=== PATIENT | male | born 1940 | race Caucasian/White ===

== ENCOUNTER 2017-09-02 14:34 | Outpatient (RCR) | payer MEDICARE, OTHER, SELFPAY ==
[2017-09-02 15:48] LABS: International Normalized Ratio 2.1; Prothrombin Time (Protime)PT. 22.9 SECONDS (11.7-14.9)
== END 2017-09-02 14:50 | disposition home or self-care (01) ==
LOC: LAB 14:34
PROVIDERS: Family Provider Nurse Practitioner; PCP Nurse Practitioner; Visit Provider Internal Medicine Cardiovascular Disease
DX: I48.1 Persistent atrial fibrillation (principal)
CPT/HCPCS: 36415; 85610

== ENCOUNTER → 2017-09-29 11:57 | Outpatient (CLI) | payer MEDICARE, OTHER, SELFPAY ==
--- NOTE | 2017-09-29 13:00 | CDU_ITS ---
Reason For Study: Carotid stenosis Rt. Velocities/BP Lt. Velocities/BP Prox CCA 103.0/17.0 cm/sec. Prox CCA 76.2/12.9 cm/sec. Mid CCA 120.0/20.5 cm/sec. Mid CCA 72.1/15.2 cm/sec. Dist CCA 111.0/24.6 cm/sec. Dist CCA 74.5/14.7 cm/sec. Prox ICA 223.0/47.1 cm/sec. Prox ECA 3180.0/58.0 cm/sec. Mid ICA 177.0/43.2 cm/sec. Lt. Vert. 75.0/21.1 cm/sec. Dist ICA 96.6/23.7 cm/sec. Rt. ICA/CCA = 1.9. Prox ECA 139.0/18.1 cm/sec. Rt. Vert. 42.8/10.6 cm/sec. Right Extracranial There is heterogeneous, irregular atherosclerotic plaque noted in the right common carotid artery. There is heterogeneous, irregular atherosclerotic plaque noted in the right internal carotid artery. There is heterogeneous, irregular atherosclerotic plaque noted in the right external carotid artery. Antegrade flow is noted in the right vertebral artery. Left Extracranial There is homogeneous, smooth atherosclerotic plaque noted in the left common carotid artery. The left internal carotid artery is occluded. There is heterogeneous, irregular atherosclerotic plaque noted in the left external carotid artery. Antegrade flow is noted in the left vertebral artery. Procedure Carotid Duplex [id number]. Exam performed in department. Interpretation Summary Moderate (50-69%) stenosis right extracranial internal carotid. Left internal carotid artery is occluded. Flow within the vertebral arteries is antegrade bilaterally. Ordering Physician: Antonio Eubanks Referring Physician: Antonio Eubanks Performed By: Clair Rodriguez RVT
--- NOTE | 2017-09-29 14:00 | ECHOD_ITS ---
Reason For Study: afib/flutter Procedure This was a 2D Doppler, Color Flow transthoracic echocardiogram. Exam performed in department. Left Ventricle Normal LV size. Left ventricular systolic function is normal. The estimated ejection fraction is 60 %. No regional wall motion abnormalities noted. Right Ventricle Normal RV size. Normal systolic function. Atria The left atrium is moderately enlarged. Normal right atrium. Patent foramen ovale. Mitral Valve Normal mitral valve. Mild (1+) eccentric mitral valve insufficiency. Tricuspid Valve Normal tricuspid valve. Mild to moderate (1-2+) tricuspid valve insufficiency. Pulmonary artery systolic pressure is 42 mmHg. Aortic Valve Normal aortic valve. Trisinus/trileaflet aortic valve. Mild (1+) aortic valve insufficiency. Pulmonic Valve Normal pulmonic valve. Great Vessels Normal aortic root. The pulmonary artery is normal size. Normal inferior vena cava. Pericardium/Pleural No pericardial effusion. MMode/2D Measurements & Calculations LVIDd: 4.9 cm IVSd: 0.91 cm LVOT diam: 2.0 cm LVIDs: 3.4 cm LVPWd: 0.95 cm LVOT area: 3.0 cm2 RVDd: 4.6 cm FS: 32.3 % Ao root diam: 3.3 cm LAV(MOD-bp): 91.0 ml LA A4 area: 27.9 cm2 LA dimension: 3.9 cm LAV(MOD-bp) Indexed: 44.8 ml/m2 LAV(MOD-sp2): 90.3 ml LAV(MOD-sp4): 87.5 ml RA A4 area: 19.1 cm2 Doppler Measurements & Calculations Ao V2 max: 191.2 cm/sec AI max sterling: 477.4 cm/sec LV V1 max: 129.6 cm/sec Ao max P.7 mmHg AI max P.2 mmHg LV V1 max P.8 mmHg PEARL(V,D): 2.0 cm2 AI dec slope: 181.1 cm/sec2 AI P1/2t: 772.3 msec TR max sterling: 301.9 cm/sec TR max P.5 mmHg Interpretation Summary Normal LV size. Left ventricular systolic function is normal. The estimated ejection fraction is 60 %. Mild (1+) eccentric mitral valve insufficiency. Pulmonary artery systolic pressure is 42 mmHg. Mild (1+) aortic valve insufficiency. Compared to prior study, there is no significant change. Ordering Physician: Antonio Eubanks Referring Physician: LIBBY TONY Performed By: Maddie Call, SAHRACS, RVT
== END ==
PROVIDERS: Family Provider Nurse Practitioner; PCP Nurse Practitioner; Visit Provider Internal Medicine Cardiovascular Disease
DX: Z01.810 Encounter for preprocedural cardiovascular examination (principal); I48.91 Unspecified atrial fibrillation; I48.92 Unspecified atrial flutter; Z86.73 Personal history of transient ischemic attack (TIA), and cerebral infarction without residual deficits
CPT/HCPCS: 93306; 93880

== ENCOUNTER 2017-10-05 13:23 | Outpatient (RCR) | payer MEDICARE, OTHER, SELFPAY ==
[2017-10-05 14:23] LABS: Prothrombin Time (Protime)PT. 22.2 SECONDS (11.7-14.9)
== END 2017-10-05 14:00 | disposition home or self-care (01) ==
LOC: LAB 13:23
PROVIDERS: Family Provider Nurse Practitioner; PCP Nurse Practitioner; Visit Provider Internal Medicine Cardiovascular Disease
DX: I48.1 Persistent atrial fibrillation (principal)
CPT/HCPCS: 36415; 85610

== ENCOUNTER 2017-11-02 08:10 | Outpatient (RCR) | payer MEDICARE, OTHER, SELFPAY ==
[2017-11-02 11:08] LABS: International Normalized Ratio 2.3; Prothrombin Time (Protime)PT. 25.8 SECONDS (11.7-14.9)
== END 2017-11-02 09:00 | disposition home or self-care (01) ==
LOC: LAB 08:10
PROVIDERS: Family Provider Nurse Practitioner; PCP Nurse Practitioner; Visit Provider Internal Medicine Cardiovascular Disease
DX: I48.1 Persistent atrial fibrillation (principal)
CPT/HCPCS: 36415; 85610

== ENCOUNTER → 2017-11-04 15:30 | Outpatient (CLI) | payer MEDICARE, OTHER, SELFPAY ==
--- NOTE | 2017-11-04 15:32 | CT_ITS ---
CTA of the neck Comparison study:, October 17, 2013 Indication carotid stenosis TECHNIQUE: CTA of the neck was performed scanning in a dynamically enhanced fashion following contrast administration followed by sagittal and coronal reconstructions. Radiographic technique was optimized to limit patient radiation dose. FINDINGS: There is mild diffuse soft plaque throughout the right common carotid without evidence for hemodynamically significant stenosis. There is moderate calcific plaque at the carotid bulb and moderate plaque of the origin of the internal carotid without evidence for hemodynamically significant stenosis. There is mild diffuse soft plaque noted within the left common carotid. There is severe calcific plaque of the carotid bulb and origin of the internal carotid with severe greater than 75% stenosis of the internal carotid. There is occlusion slightly more distally and then reconstitution by collaterals The left vertebral is dominant. There is mild calcific plaquing of the distal vertebrals There is no significant segmental stenosis of the vertebrals.. There has been slight interval progression of the calcific plaque bilaterally since prior study. CT/CTA Neck W/WO Contrast IMPRESSION: Moderate to severe atherosclerotic disease more severe on the left with hemodynamically significant stenosis of the origin of the internal carotid and occlusion followed by reconstitution via collaterals. There is moderate narrowing of the right carotid bulb Electronically Signed: Arcadio Landin MD at 17:04 EDT , Service support ,
[2017-11-04 15:46] LABS: EGFR FINGERSTICK > 60.0000 mL/min (>60)
== END ==
PROVIDERS: Family Provider Nurse Practitioner; PCP Nurse Practitioner; Visit Provider Surgery
DX: I65.23 Occlusion and stenosis of bilateral carotid arteries (principal)
CPT/HCPCS: 70498; Q9967

== ENCOUNTER 2017-11-30 13:59 | Outpatient (RCR) | payer MEDICARE, OTHER, SELFPAY ==
[2017-11-30 15:18] LABS: International Normalized Ratio 2.2; Prothrombin Time (Protime)PT. 24.3 SECONDS (11.7-14.9)
== END 2017-11-30 14:00 | disposition home or self-care (01) ==
LOC: LAB 13:59
PROVIDERS: Family Provider Nurse Practitioner; PCP Nurse Practitioner; Visit Provider Internal Medicine Cardiovascular Disease
DX: I48.1 Persistent atrial fibrillation (principal)
CPT/HCPCS: 36415; 85610

== ENCOUNTER 2017-12-30 11:59 | Outpatient (RCR) | payer MEDICARE, OTHER, SELFPAY ==
[2017-12-30 13:21] LABS: International Normalized Ratio 2.3; Prothrombin Time (Protime)PT. 25.7 SECONDS (11.7-14.9)
== END 2017-12-30 12:00 | disposition home or self-care (01) ==
LOC: LAB 11:59
PROVIDERS: Family Provider Nurse Practitioner; PCP Nurse Practitioner; Visit Provider Internal Medicine Cardiovascular Disease
DX: I48.1 Persistent atrial fibrillation (principal)
CPT/HCPCS: 36415; 85610

== ENCOUNTER 2018-01-28 10:11 | Outpatient (RCR) | payer MEDICARE, OTHER, SELFPAY ==
[2018-01-28 11:06] LABS: Prothrombin Time (Protime)PT. 22.9 SECONDS (11.7-14.9)
== END 2018-01-28 11:00 | disposition home or self-care (01) ==
LOC: LAB 10:11
PROVIDERS: Family Provider Nurse Practitioner; PCP Nurse Practitioner; Visit Provider Internal Medicine Cardiovascular Disease
DX: I48.1 Persistent atrial fibrillation (principal)
CPT/HCPCS: 36415; 85610

== ENCOUNTER 2018-02-26 11:48 | Outpatient (RCR) | payer MEDICARE, OTHER, SELFPAY ==
[2018-02-26 12:46] LABS: International Normalized Ratio 2.4; Prothrombin Time (Protime)PT. 26.5 SECONDS (11.7-14.9)
== END 2018-02-26 13:00 | disposition home or self-care (01) ==
LOC: LAB 11:48
PROVIDERS: Family Provider Nurse Practitioner; PCP Nurse Practitioner; Visit Provider Internal Medicine Cardiovascular Disease
DX: I48.1 Persistent atrial fibrillation (principal)
CPT/HCPCS: 36415; 85610

== ENCOUNTER 2018-03-30 11:09 | Outpatient (RCR) | payer MEDICARE, OTHER, SELFPAY ==
[2018-03-30 11:42] LABS: International Normalized Ratio 2.5; Prothrombin Time (Protime)PT. 27.1 SECONDS (11.7-14.9)
== END 2018-03-30 12:00 | disposition home or self-care (01) ==
LOC: LAB 11:09
PROVIDERS: Family Provider Nurse Practitioner; PCP Nurse Practitioner; Visit Provider Internal Medicine Cardiovascular Disease
DX: I48.0 Paroxysmal atrial fibrillation (principal); Z79.01 Long term (current) use of anticoagulants
CPT/HCPCS: 36415; 85610

== ENCOUNTER 2018-05-12 13:40 | Outpatient (RCR) | payer MEDICARE, OTHER, SELFPAY ==
[2018-04-29 14:02] LABS: International Normalized Ratio 1.9
[2018-05-12 16:05] LABS: International Normalized Ratio 1.8; Prothrombin Time (Protime)PT. 20.9 SECONDS (11.7-14.9)
== END 2018-05-12 15:00 | disposition home or self-care (01) ==
LOC: LAB 13:40
PROVIDERS: Family Provider Nurse Practitioner; PCP Nurse Practitioner; Visit Provider Internal Medicine Cardiovascular Disease
DX: I48.0 Paroxysmal atrial fibrillation (principal); Z79.01 Long term (current) use of anticoagulants
CPT/HCPCS: 36415; 85610

== ENCOUNTER 2018-06-04 13:34 | Outpatient (RCR) | payer MEDICARE, OTHER, SELFPAY ==
[2018-05-21 13:43] LABS: International Normalized Ratio 2.7; Prothrombin Time (Protime)PT. 28.8 SECONDS (11.7-14.9)
[2018-06-04 16:39] LABS: International Normalized Ratio 2.8; Prothrombin Time (Protime)PT. 29.5 SECONDS (11.7-14.9)
== END 2018-06-04 15:00 | disposition home or self-care (01) ==
LOC: LAB 13:34
PROVIDERS: Family Provider Nurse Practitioner; PCP Nurse Practitioner; Referring Provider Internal Medicine Cardiovascular Disease; Visit Provider Internal Medicine Cardiovascular Disease
DX: I48.0 Paroxysmal atrial fibrillation (principal); Z79.01 Long term (current) use of anticoagulants
CPT/HCPCS: 36415; 85610

== ENCOUNTER 2018-07-05 13:54 | Outpatient (RCR) | payer MEDICARE, OTHER, SELFPAY ==
[2018-07-05 16:46] LABS: International Normalized Ratio 2.3; Prothrombin Time (Protime)PT. 25.3 SECONDS (11.7-14.9)
== END 2018-07-16 10:36 | disposition home or self-care (01) ==
LOC: LAB 13:54
PROVIDERS: Family Provider Nurse Practitioner; PCP Nurse Practitioner; Referring Provider Internal Medicine Cardiovascular Disease; Visit Provider Internal Medicine Cardiovascular Disease
DX: I48.0 Paroxysmal atrial fibrillation (principal); Z79.01 Long term (current) use of anticoagulants
CPT/HCPCS: 36415; 85610

== ENCOUNTER 2018-07-14 22:26 | Emergency (ER) | payer MEDICARE, OTHER, SELFPAY ==
[2018-07-14 22:29] VITALS: BP 171/90; PULSE 77; RESP 18; TEMP 37.2; O2SAT 98; BMI 36.3
--- NOTE | 2018-07-14 22:48 | ED.VISSUMM ---
- ER Visit Summary Date of Service: 07/14/18 Chief Complaint: [] Runny nose History of Present Illness: The patient is a 77 M stated he had a runny nose for the last couple days gradual onset intermittent. He is also had a very small cyst on the top of his palate. It was therapeutic 2 years ago and broke open and went away and it came back a few days ago. He is able to put pressure on it and trying to break it open. Current severity is mild Physical Examination: [] Vital signs reviewed General: Well-nourished well-developed Head: Normocephalic atraumatic Eyes: Pupils equal round and reactive to light extraocular movements intact ENT: TMs clear no hemotympanum no trauma. His oral exam hard palate shows a 0.5 x 0.5 cm superficial cyst without abscess. It is almost completely flat Neck: Nontender full range of motion Cardiovascular: Regular rate rhythm no murmurs normal S1-S2 Respiratory: No distress clear to auscultation bilaterally chest nontender Abdomen: Soft nontender nondistended normal bowel sounds no masses Back: Nontender no CVA tenderness Extremities: Nontender active range of motion ?4 extremities no trauma Skin: Normal color no trauma Neuro alert oriented cranial nerves II through XII intact normal strength sensation reflexes Test Results: [] Emergency Department Course and Treatment: [] Patient will get a referral to ENT. I do not feel this needs drained at this time. It is not an abscess. He will use Orajel if it is bothering him. It is the main reason he came in Treatment Plan: [] Disposition: [] Impression: [] Hard palate lesion This note was generated with [employer] dictation software. It may contain incorrect words, spelling, and punctuation that were not noted in review of the chart prior to signing ED Disposition - Plan for ED Patient: Chief Complaint: Cold Sx Referrals: Yoon Alba, WILLIAN-C [Primary Care Provider] -
--- NOTE | 2018-07-14 22:49 | ED.DEP ---
ED Disposition - Plan for ED Patient: Disposition: Home or Assisted Living Chief Complaint: Cold Sx Instructions: ED Blank Diagnosis Form Referrals: Yoon Alba NP-Mauricio [Primary Care Provider] - Gregorio Yanes MD [STAFF PHYSICIAN] - Additional Instructions: Have a cyst on your hard palate. Follow-up with the ENT physician
[2018-07-14 22:53] VITALS: RESP 18
--- OUTSIDE RECORDS SUMMARY | 2018-09-09 05:20 | XMS RPT_ITS | Continuity of Care Document ---
:1940 Author Organization [facility] Address [address] [place] [address] Phone Care Team Providers Name Role Phone Yoon Tony CNP Unavailable SanjanaVidhya vidales DO Unavailable Gonsalo WATSON, Milli Rader Unavailable Deshawn DPAmos Rader Unavailable Jessica Benitez Unavailable Unavailable Slarb MARINE DESIGNER, Carole Unavailable Unavailable Bossman Bernard Unavailable Unavailable MessengerDAMIÁN Unavailable Unavailable Unavailable Unavailable Problems Name Dates Details A-fib (I48.91, 427.31) Comments: cardioversion 6-10, paroxysmal, on coumadin for life. does cause sob per cardio. stress 2013 good. reviewed with patient specialist's note. he can tell when in afib because not as much stamina, stable on coumadin, Nury follows Status: Active Anemia (D64.9, 285.9) Status: Active Aphasia as late effect of cerebrovascular accident (I69.320, 438.11) Status: Active ASD (atrial septal defect), ostium secundum (Q21.1, 745.5) Status: Active Asthmatic bronchitis, unspecified asthma severity, with acute exacerbation (J45.901, 493.92) Comments: usually not need inhalers. Status: Active Asymptomatic carotid artery stenosis with infarction (I63.239, 433.11) Comments: LICA 90% stenosis and DAMIÁN 50% stenosis, MRA 2-[address] bhatia 3-16 stable no surgery Status: Active BMI 38.0-38.9,adult (Z68.38, V85.38) Status: Active BMI 39.0-39.9,adult (Z68.39, V85.39) Status: Active BMI 39.0-39.9,adult (Z68.39, V85.39) Status: Active BMI 39.0-39.9,adult (Z68.39, V85.39) Status: Active Body mass index 38.0-38.9, adult (Z68.38, V85.38) Status: Active Colon polyp (K63.5, 211.3) Comments: 1-09 scoperescope 1-14 recheck in 7 years Status: Active Current nonsmoker (Renamed from Current non-smoker) (Z78.9, V49.89) Status: Active Diabetes mellitus type II, controlled (E11.9, 250.00) Comments: stable metforminpodaitry see every 3months, regular eye exam yearly scheduled laurent, see cardio Status: Active Diabetic autonomic neuropathy associated with type 2 diabetes mellitus (E11.43, 250.60) Status: Active Diabetic polyneuropathy associated with type 2 diabetes mellitus (E11.42, 250.60) Comments: monofilament intact but vibratroy sense decreased Status: Active Hammer toes, bilateral (M20.41, 735.4) Status: Active Hematuria (R31.9, 599.70) Comments: on coumadin Status: Active History of CVA in adulthood (Z86.73, V12.54) Status: Active Hypertension, benign (I10, 401.1) Comments: , norvasc and lisinopril, stable not betablocker because heart rate too low Status: Active Memory loss (R41.3, 780.93) Comments: since stroke ceck MMS. not seem cognitive. not feel have anxiety. will check labs. and watch for worsening Status: Active Need for prophylactic vaccination and inoculation against influenza (Z23, V04.81) Status: Active Need for prophylactic vaccination and inoculation against influenza (Renamed from Need for immunization against influenza) (Z23, V04.81) Status: Active Obesity, unspecified (E66.9, 278.00) Comments: loosing weight with byetta but stop because cost stable now Status: Active Osteoarthrosis, not specified whether generalized/localized, lower leg (M17.9, 715.96) Comments: had right TKA eufflexxa in past. Status: Active Personal history of malignant neoplasm of prostate (Z85.46, V10.46) 2008 Comments: released from urology, prostate removed Status: Active Pure hypercholesterolemia (E78.0) Comments: stop zocor--had aches, strength loss, niacin -rash.b reallly good, still atorvastatin Status: Active Status post coronary angiogram (Z98.89, V45.89) Status: Active Unspecified Diagnosis Status: Active Vitamin D deficiency, unspecified (E55.9, 268.9) Comments: very slightly low assure taking Status: Active Medications Name Dates Details Atorvastatin Calcium 80 MG Oral Tablet 1 (one) Tablet Tablet qd for 0 days Quantity: 90 {Tablet} Refills: 3 Ordered:02-Sep-2017 Parth BLAKE Yoon MARISCALge BLAKE Yoon Romo Start : 02-Sep-2017 Active Atorvastatin Calcium 80 MG Oral Tablet 1 (one) Tablet Tablet qd for 0 days Quantity: 90 {Tablet} Refills: 3 Ordered:02-Sep-2017 Parth BLAKE Yoon Peacephilip BLAKE Yoon Romo Start : 02-Sep-2017 Active Coumadin 1 MG Oral Tablet uad Tablet qd for 0 days Quantity: 90 {Tablet} Refills: 3 Ordered:05-Dec-2016 Parth BLAKE Yoon Peacephilip BLAKE Yoon Romo Start : 05-Dec-2016 Active Fiber Laxative 625 MG Oral Tablet 1 qd for 0 days Refills: 0 Ordered:09-Mar-2017 Parth BLAKE Yoon MARISCALge BLAKE Yoon Romo Start : 09-Mar-2017 Active Fish Oil 500 MG Oral Capsule daily (500 MG) Active HydroCHLOROthiazide 25 MG Oral Tablet 1 (one) Tablet daily for 0 days Quantity: 30 {Tablet} Refills: 0 Ordered:09-Mar-2017 Parth BLAKE Yoon MARISCALge BLAKE Yoon Romo Start : 09-Mar-2017 Active Lisinopril 20 MG Oral Tablet 1 Tablet QD for 0 days Quantity: 90 {Tablet} Refills: 3 Ordered:02-Sep-2017 Parth BLAKE Yoon Peacephilip BLAKE Yoon Romo Start : 02-Sep-2017 Active MetFORMIN HCl 1000 MG Oral Tablet 1 Tablet BID for 0 days Quantity: 180 {Tablet} Refills: 3 Ordered:18-Jan-2018 Parth BLAKE, Yoon Brock CNP Start : 18-Jan-2018 Active MetFORMIN HCl 1000 MG Oral Tablet 1 Tablet BID for 0 days Quantity: 360 {QS} Refills: 0 Ordered:18-Jan-2018 Parth BLAKE, Yoon Brock CNP Start : 18-Jan-2018 Active Multivitamin Adults 50+ Oral Tablet 1 (one) Tablet daily for 0 days Quantity: 30 {Tablet} Refills: 0 Ordered:09-Mar-2017 Parth BLAKE, Yoon Brock CNP Start : 09-Mar-2017 Active Norvasc 10 MG Oral Tablet 1 (one) Tablet qd for 0 days Quantity: 90 {Tablet} Refills: 3 Ordered:23-Jun-2018 Yoon Tony CNP, CNP, Mary E Start : 23-Jun-2018 Active Norvasc 10 MG Oral Tablet 1 (one) Tablet qd for 90 days Quantity: 90 {Tablet} Refills: 3 Ordered:23-Jun-2018 Yoon Tony CNP, CNP, Mary E Start : 23-Jun-2018 Active PreserVision/Lutein Oral Capsule 1 (one) Capsule daily for 0 days Quantity: 30 {Capsule} Refills: 0 Ordered:09-Mar-2017 Yoon Tony CNP, CNP, Mary E Start : 09-Mar-2017 Active RELION LANCETS STANDARD 21G (Miscellaneous) 1 (one) Misc Misc tid for 0 days Quantity: 300 {Each} Refills: 3 Ordered:26-Nov-2015 Raina Pham Start : 26-Nov-2015 Active Comments:E11.9 RELION PRIME MONITOR (Device) 1 (one) Device Device test up to tid for 0 days Quantity: 1 Kit Refills: 0 Ordered:26-Nov-2015 Raina Pham Start : 26-Nov-2015 Active Comments:E11.9 RELION PRIME TEST (In Vitro Strip) 1 (one) Strip Strip tid for 0 days Quantity: 300 {Strip} Refills: 3 Ordered:26-Nov-2015 Raina Pham Start : 26-Nov-2015 Active Comments:E11.9 Tylenol 325 MG Oral Capsule 1 (one) Capsule as needed for 0 days Quantity: 30 {Capsule} Refills: 0 Ordered:09-Mar-2017 Parth BLAKE, Yoon Blackwell CNP, Yoon Romo Start : 09-Mar-2017 Active Comments:Medication taken as needed. Vitamin B12 100 MCG Oral Tablet 1 (one) Microgram daily for 0 days Quantity: 30 {Milligram} Refills: 0 Ordered:09-Mar-2017 Parth BLAKE, Yoon Blackwell CNP, Yoon Romo Start : 09-Mar-2017 Active ACCU-CHEK DEREJE (In Vitro Strip) 1 Strip TID for 0 days Quantity: 270 {Strip} Refills: 3 Ordered:26-Nov-2015 Jenifer Choudhary LPN Start : 12-Jan-2014 End : 26-Nov-2015 Inactive Comments:DX: 250.00 ASPIRIN EC, 325MG (Oral Tablet Delayed Release) 1 (one) Tablet DR daily for 0 days Quantity: 30 {Tablet} Refills: 0 Ordered:20-Oct-2013 ANGÉLICA Laureano Start : 11-Oct-2013 End : 20-Oct-2013 Inactive ATENOLOL-CHLORTHALIDONE, 50-25MG (Oral Tablet) 1 Tablet QD for 0 days Quantity: 30 {Tablet} Refills: 0 Ordered:26-Nov-2010 ANGÉLICA Laureano Start : 08-Jul-2010 End : 26-Nov-2010 Inactive Atorvastatin Calcium 80 MG Oral Tablet 1 (one) qd (80 MG) Start : 05-Dec-2016 Inactive AUGMENTIN, 875-125MG (Oral Tablet) 1 Tablet bid for 14 days Quantity: 28 {Tablet} Refills: 0 Ordered:23-Jan-2009 Parth BLAKE, Yoon Blackwell CNP, Yoon Romo Start : 23-Jan-2009 End : 20-Feb-2009 Inactive AVELOX, 400MG (Oral Tablet) 1 Tablet daily for 0 days Quantity: 6 {Tablet} Refills: 0 Ordered:26-Nov-2010 ANGÉLICA Laureano Start : 02-Aug-2010 End : 26-Nov-2010 Inactive BIAXIN XL PAC, 500MG (Oral Tablet Extended Release 24 Hour) 2 (two) Tablet ER 24HR daily for 10 days Quantity: 20 {Tablet_ER_24HR} Refills: 0 Ordered:25-Jan-2013 Jenifer Choudhary LPN Start : 24-Jan-2013 End : 25-Jan-2013 Inactive BYETTA 10 MCG PEN, 10MCG/0.04ML (Subcutaneous Solution Pen-injector) 1 Milliliter bid for 0 days Quantity: 3 {Pre-filled_Pen_Syringe} Refills: 3 Ordered:28-May-2015 ANGÉLICA Laureano Start : 19-Apr-2015 End : 28-May-2015 Inactive Comments:with needles CHERATUSSIN AC, 100-10MG/5ML (Oral Solution) 1-2 Teaspoon qhs prn for 0 days Quantity: 6 {Ounce} Refills: 0 Ordered:31-Jul-2015 FrancoisborisdanayRaina Start : 02-Jul-2015 End : 31-Jul-2015 Inactive CHOLECALCIFEROL (Powder) 1 (one) Powder daily for 360 days Quantity: 30 {Box} Refills: 0 Ordered:12-Jan-2014 ANGÉLICA Laureano Start : 28-Oct-2013 End : 12-Jan-2014 Inactive COLESTID, 1GM (Oral Tablet) 1 Tablet bid for 0 days Quantity: 180 {Tablet} Refills: 3 Ordered:11-Jul-2013 ANGÉLICA Laureano Start : 09-Sep-2012 End : 11-Jul-2013 Inactive COLESTID, 5GM (Oral Granules) Granules BID meals for 0 days Quantity: 180 {Granules} Refills: 3 Ordered:14-Sep-2008 ANGÉLICA Laureano Start : 14-Sep-2008 Inactive DILTIAZEM HCL ER, 120MG (Oral Capsule Extended Release 24 Hour) 1 Capsule ER 24HR bid for 0 days Quantity: 180 {Capsule_ER_24HR} Refills: 3 Ordered:18-Oct-2013 ANGÉLICA Laureano Start : 11-Jul-2013 End : 18-Oct-2013 Inactive EFUDEX, 5% (External Cream) 1 Cream daily for 2 weeks for 0 days Quantity: 1 {Cream} Refills: 0 Ordered:26-Nov-2010 ANGÉLICA Laureano Start : 27-Aug-2010 End : 26-Nov-2010 Inactive FLECAINIDE ACETATE, 100MG (Oral Tablet) 1 bid for 0 days Refills: 0 Ordered:26-Nov-2010 ANGÉLICA Laureano End : 26-Nov-2010 Inactive LEVAQUIN, 500MG (Oral Tablet) 1 Tablet daily for 7 days Quantity: 7 {Tablet} Refills: 0 Ordered:02-Jul-2015 Yoon Tony CNP, CNP, Mary E Start : 02-Jul-2015 End : 09-Jul-2015 Inactive LIPOFEN, 150MG (Oral Capsule) 1 (one) Capsule daily for 0 days Quantity: 30 {Capsule} Refills: 3 Ordered:07-Jan-2010 ANGÉLICA Laureano Start : 01-Nov-2009 Inactive LOPRESSOR, 50MG (Oral Tablet) 1 Tablet qd for 900 days Refills: 0 Ordered:26-Nov-2010 ANGÉLICA Laureano Start : 28-Feb-2010 End : 26-Nov-2010 Inactive NASONEX, 50MCG/ACT (Nasal Suspension) 2 (two) Puff(s) once daily for 0 days Quantity: 1 {Suspension} Refills: 0 Ordered:03-Jun-2011 ANGÉLICA Laureano Start : 02-Aug-2010 End : 03-Jun-2011 Inactive NIASPAN, 500MG (Oral Tablet Extended Release) 1 Tablet ER qhs for 0 days Quantity: 30 {Tablet_ER} Refills: 0 Ordered:11-Apr-2013 Milli Jackson MD Start : 11-Apr-2013 End : 11-Apr-2013 Inactive Comments:bad rash PEN NEEDLES 5/16, 31G X 8 MM (Miscellaneous) 1 Misc bid for 0 days Quantity: 180 {QS} Refills: 3 Ordered:12-Nov-2015 ANGÉLICA Laureano Start : 12-Jan-2014 End : 12-Nov-2015 Inactive PRAVASTATIN SODIUM, 40MG (Oral Tablet) 1 (one) Tablet qd for 0 days Quantity: 90 {Tablet} Refills: 3 Ordered:12-Jan-2014 ANGÉLICA Laureano Start : 28-Oct-2013 End : 12-Jan-2014 Inactive Comments:not able to increase because muscle aches PROAIR HFA, 108 (90 Base)MCG/ACT (Inhalation Aerosol Solution) 2 (two) Puff(s) tid for 0 days Quantity: 1 {Inhaler} Refills: 0 Ordered:31-Jul-2015 Raina Pham Start : 02-Jul-2015 End : 31-Jul-2015 Inactive SUPARTZ, 25MG/2.5ML (Intra-articular Solution) Solution for 0 days Refills: 0 Ordered:06-Dec-2007 ANGÉLICA Laureano Start : 06-Dec-2007 End : 14-Sep-2008 Inactive Comments:lot # [id number] 11/2009 TRICOR, 145MG (Oral Tablet) Tablet QD for 0 days Quantity: 30 {Tablet} Refills: 3 Ordered:01-Nov-2009 Evie Panda LPN Start : 02-Aug-2009 Inactive VYTORIN, 10-80MG (Oral Tablet) 1 qd for 0 days Refills: 0 Ordered:28-Feb-2010 ANGÉLICA LaureanoInactive ZETIA, 10MG (Oral Tablet) 1 (one) Tablet Tablet daily for 0 days Quantity: 90 {Tablet} Refills: 3 Ordered:12-Jan-2014 ANGÉLICA Laureano Start : 11-Oct-2013 End : 12-Jan-2014 Inactive ZETIA, 10MG (Oral Tablet) 1 (one) Tablet Tablet daily for 0 days Quantity: 30 {Tablet} Refills: 0 Ordered:12-Jan-2014 ANGÉLICA Laureano Start : 11-Oct-2013 End : 12-Jan-2014 Inactive ZOSTAVAX, 67040OOW/0.65ML (Subcutaneous Solution Reconstituted) 1 (one) For Solution one time only for 0 days Quantity: 1 {Syringe} Refills: 0 Ordered:18-Oct-2013 ANGÉLICA Laureano Start : 11-Oct-2013 End : 18-Oct-2013 Inactive AMARYL, 4MG (Oral Tablet) 1 (one) Tablet QD for 0 days Quantity: 30 {Tablet} Refills: 3 Ordered:06-Dec-2007 Milli Jackson MD Start : 06-Dec-2007 End : 06-Dec-2007 Discontinued BYETTA 5 MCG PEN, 5MCG/0.02ML (Subcutaneous Solution) uad Solution BID for 90 days Quantity: 3 {Solution} Refills: 3 Ordered:26-Nov-2010 Milli Jackson MD Start : 26-Nov-2010 End : 26-Nov-2010 Discontinued CHOLESTYRAMINE LIGHT, 4GM (PO Powder Packet) 1 QD for 0 days Refills: 0 Ordered:07-Jan-2010 ANGÉLICA Laureano End : 07-Jan-2010 Discontinued Comments:This order discontinued per [facility]. Doxycycline Hyclate 100 MG Oral Capsule 1 (one) Capsule bid for 0 days Quantity: 20 {Capsule} Refills: 0 Ordered:05-Dec-2016 Carole Sky LPN Start : 06-Oct-2016 End : 05-Dec-2016 Discontinued Glucotrol 5 MG Oral Tablet 1 (one) Tablet Tablet in am for 0 days Quantity: 30 {Tablet} Refills: 4 Ordered:16-May-2016 Asya STEEL Carole Start : 29-Nov-2015 End : 16-May-2016 Discontinued MetFORMIN HCl 1000 MG Oral Tablet 1 BID (1000 MG) Start : 05-Dec-2016 End : 09-Mar-2017 Discontinued Metoprolol Tartrate 25 MG Oral Tablet 1/2 Tablet bid for 0 days Quantity: 180 {Tablet} Refills: 3 Ordered:09-Mar-2017 Asya STEELCarole Start : 05-Dec-2016 End : 09-Mar-2017 Discontinued PredniSONE 20 MG Oral Tablet 1 (one) Tablet one daily for 7 days for 0 days Quantity: 7 {Tablet} Refills: 0 Ordered:05-Dec-2016 Asya STEELCarole Start : 06-Oct-2016 End : 05-Dec-2016 Discontinued STARLIX, 120MG (Oral Tablet) 1 Tablet TID for 0 days Quantity: 360 {Tablet} Refills: 3 Ordered:13-May-2007 Natalie Jaimes Start : 13-May-2007 End : 13-May-2007 Discontinued TEST STRIPS FOR GLUCOMETER-3 (In Vitro Strip) accucheck for 0 days Refills: 0 Ordered:05-Jan-2007 Natalie Jaimes Start : 05-Jan-2007 End : 05-Jan-2007 Discontinued Comments:This order discontinued per [facility]. Tradjenta 5 MG Oral Tablet 1 (one) Tablet daily for 0 days Quantity: 28 {Tablet} Refills: 0 Ordered:26-May-2016 Asya STEELCarole Start : 16-May-2016 End : 26-May-2016 Discontinued VICTOZA, 18MG/3ML (Subcutaneous Solution Pen-injector) 1 (one) Soln Pen-inj 1.8 mg SC daily in am for 0 days Quantity: 1 {Each} Refills: 6 Ordered:19-Apr-2015 Evie Panda LPN Start : 27-Feb-2015 End : 19-Apr-2015 Discontinued Comments:with needles VITAMIN D, 91648DEYX (Oral Capsule) 1 (one) Capsule once a week for 0 days Quantity: 12 {Capsule} Refills: 0 Ordered:11-Jul-2013 ANGÉLICA Laureano Start : 02-Nov-2009 End : 11-Jul-2013 Discontinued Comments:This order discontinued per [facility]. WELCHOL, 625MG (Oral Tablet) 2 (two) Tablet bid for 0 days Refills: 0 Ordered:02-Aug-2009 Gonsalo WATSON, Milli Rader Start : 23-Jan-2009 End : 02-Aug-2009 Discontinued ZOCOR, 80MG (Oral Tablet) 1 (one) Tablet QD for 0 days Quantity: 90 {Tablet} Refills: 3 Ordered:07-Mar-2008 ANGÉLICA Laureano Start : 07-Mar-2008 End : 15-May-2008 Discontinued Allergies and Adverse Reactions Name Dates Details Biaxin *MACROLIDES* (Allergy) Status: Active Comments: rash No Known Drug Allergies (Allergy) Onset: 11-Jul-2013 Status: Inactive Past Medical History Name Dates Details Actinic keratosis (L57.0, 702.0) Status: Inactive as of 08-Jun-2012 Acute sinusitis, unspecified (J01.90, 461.9) Status: Inactive as of 11-Apr-2013 Atherosclerosis of left carotid artery (I65.22, 433.10) Comments: LICA 90% stenosis and DAMIÁN 50% stenosis Status: Inactive as of 12-Jan-2014 BMI 37.0-37.9, adult (Z68.37, V85.37) Status: Inactive as of 13-Jul-2017 BMI 38.0-38.9,adult (Z68.38, V85.38) Comments: byetta helping. gain some with sweets Status: Inactive as of 18-Apr-2014 BMI 40.0-44.9, adult (Z68.41, V85.41) Status: Inactive as of 13-Jul-2017 Bronchitis (J40, 490) Status: Inactive as of 12-Nov-2015 Bronchitis (J40, 490) Status: Inactive as of 11-Apr-2013 Cerumen impaction (H61.20, 380.4) Status: Inactive as of 09-Sep-2012 Colon cancer (C18.9, 153.9) Status: Inactive as of 24-Nov-2017 Cough (R05, 786.2) Status: Inactive as of 12-Nov-2015 Cough (R05, 786.2) Status: Inactive as of 12-Nov-2015 Cough (R05, 786.2) Status: Inactive as of 11-Apr-2013 CVA (cerebral infarction) (I63.9, 434.91) Comments: Had L frontal infarct MRI 10-17-13 [facility] Status: Inactive as of 28-May-2015 Elevated PSA (R97.20, 790.93) Comments: getting done every aug and done by [facility] Status: Inactive as of 08-Jun-2012 Elevated WBC count (D72.829, 288.60) Comments: comparewas elevated at [facility] during admit, homegoing instructions to recheck Last WBC on 10-26 was 11. Status: Inactive as of 12-Nov-2015 Encounter for routine history and physical exam for male (Z00.00, V70.0) Comments: 02-28 reveiwed with patient all questions. shingles vaccine done . info on advances directive. colonscopy -14 good repeat 7 years. psa written done with urology had prostectomy Status: Inactive as of 12-Nov-2015 Epigastric pain (R10.13, 789.06) Comments: better off cholystryamine but still some gerd and concern about stomach cancer with family history. will getxray if signs and symptoms not better than EGD Status: Inactive as of 11-Apr-2013 Fatigue (R53.83, 780.79) Comments: think relate to afib and probably low testosterone which cannot treat with prostate cancer history. will check other labs Status: Inactive as of 09-Sep-2012 Headache (R51, 784.0) Status: Inactive as of 12-Jan-2014 Hypertension (I10, 401.9) Comments: stable on lisinopril and metoprolol sees Nury Status: Inactive as of 18-Jul-2016 Knee pain (M25.569, 719.46) Comments: planning TKA right. will talk to cardio about meds. Status: Inactive as of 11-Apr-2013 OSTEOARTHROSIS NOS, LOWER LEG (715.96) Comments: inject right knee Status: Inactive as of 12-Nov-2015 Other specified periodontal diseases (K05.5, 523.8) Status: Inactive as of 08-Jun-2012 Pre-operative examination (Z01.818, V72.84) Comments: prostectomy--Dr Dupont, [facility] Status: Inactive as of 07-Mar-2008 Prostate cancer Comments: prostectomy, [place] Status: Resolved as of 08-Jun-2012 Sinusitis, chronic (J32.9, 473.9) Status: Inactive as of 11-Apr-2013 Speech abnormality (R47.9, 784.59) Comments: concern with headache and pop feeling also coumadin was high inr. need to assure no strok, TIA or aneurysm. want to plavix but pt refuse. go up to full asa. will see Dr. arrington soon. next time happens go ER Status: Inactive as of 13-Jul-2017 Uncontrolled diabetes mellitus type 2 without complications, unspecified long-term insulin use status (E11.65, 250.02) Comments: need diet control, as A1C elevating Status: Inactive as of 29-Mar-2018 Unspecified abnormal involuntary movements (R25.9, 781.0) Comments: had for years only right hand with use at time. no gait or other signs and symptoms of parkinson. 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 [address] [place] [address] OFFICE VISIT Date of Service: 03/15/18 MR#: [id number] Acct: [id number] Name: VIDHYA PALMER Rep #: [id number] : 1940 Provider: WILLIAN Stroud Age/Sex: 77/M Location: [facility] Status: Signed HPI HPI Details: VIDHYA PALMER, is a 77 M who presents to the office today for a cardiovascul ar outpatient follow-up. He is a gentleman with a history of mild coronary artery disease, chronic persistent atrial fibrillation, hypertension, hyperlipidemia, carotid artery disease with total occlusi on of the left internal carotid artery and 50 69% stenosis of right carotid artery, CVA in 2013, and diabetes. Pt. denies chest, arm, jaw, or neck discomfort. His exercise tolerance is stable. Pt. himanshu es symptoms of CHF, lightheadedness, dizziness, near syncope, or syncopal episodes. Pt. denies edema or claudication issues. Pt. denies orthopnea, PND, fever, chills, blood in urine, blood in stool, kayleen lgia, or unexplainable fatigue. He states fluctuating episodes of palpitations and feels fatigued. He did not undergo knee surgery after last visit d/t increase CVA risk. He denies any worsening SOB, th is improves with rest and is made worse with the heat. Intake Vital Signs03/15/18 Blood Pressure 110/60 03/15/18 Blood Pressure Location Lt brachial Intake Visit Reasons: 6 M FU In [facility] Required: No Accompanied by: Is patient in pain?: No Allergies No Known Allergies Allergy (Verified 03/15/18 12:50) Medications Multivitamins,Therapeutic [Multivitamin] 1 tab PO RAVINDRA Y 10/21/13 [History Confirmed 03/15/18] warfarin 1 mg tablet 1 mg PO QDAY 08/06/17 [History Confirmed 03/15/18] hydrochlorothiazide 25 mg tablet 25 mg PO QDAY #90 tab 09/03/17 [Rx Confirmed 03/15/18] ac etaminophen 325 mg tablet 650 mg PO QDAY tab 09/09/17 [History Confirmed 03/15/18] amlodipine 10 mg tablet 10 mg PO QDAY 09/09/17 [History Confirmed 03/15/18] atorvastatin 80 mg tablet 80 mg PO QDAY [History Confirmed 03/15/18] cyanocobalamin (vit B-12) 100 mcg tablet 100 mcg PO QDAY 09/09/17 [History Confirmed 03/15/18] metformin 1,000 mg tablet 1,000 mg PO BID 09/15/17 [History Confirmed ] warfarin 2 mg tablet 2 mg PO .COMPLEX #180 tab 11/13/17 [Rx Confirmed 03/15/18] lisinopril 20 mg tablet 20 mg PO QDAY tab 03/15/18 [History Confirmed 03/15/18] Ejection fraction %: 60 to 64 P [facility] Medical History Atrial fibrillation (Chronic) Diabetes mellitus, type II (Chronic) Hyperlipidemia (Chronic) Hypertension (Chronic) Dyspnea on exertion (Chronic) History of stroke (Chronic) Occlusio n and stenosis of bilateral carotid arteries (Chronic) Patent foramen ovale (Chronic) Atherosclerotic heart disease of [place] coronary artery without angina pectoris (Chronic) Paroxysmal atrial fibrilla tion (Chronic) [facility] (current) use of anticoagulants (Chronic) History of prostate cancer (Acute) Surgical History S/P prostatectomy (Acute) S/P total kn ee replacement (Acute) Family History Sister Diabetes Heart disease Brother Colon cancer Father CVA (cerebral vascular accident) Social History Smoking Stat us: Never smoker alcohol intake: never caffeine: Yes Type: carbonated beverages, coffee ROS Const Const: Positive for fatigue; negative for weakness, body ache, fever(s) or chills ENT ENT: Negati ve for dizziness Cardio Chest Pain: No Palpitations: Yes Edema: None Muscle aches with walking: None Resp Respiratory: Positive for SOB with activity; negative for SOB at rest, SOB orthopnea\SOB lying d own or paroxysmal nocturnal dyspnea GI GI: Negative nausea, black,tarry stools, bright, red blood in stools or vomiting blood/hematemesis : Negative for hematuria or frequent nighttime urination/ n octuria Musc Musc: Positive for joint pain (left knee); negative for muscle aches/ myalgia Skin Skin: Negative non-healing lesions or rash Neuro Neuro: Negative for weakness, dizziness, lightheadedness, near syncope, syncope or orthostatic symptoms Endo Endo: Positive for fatigue Allergy Allergy/Immunology: Negative for rash Cardiology Exam Const Appearance: cooperative, healthy appearing, comfortab le and no acute distress Orientation: alert, awake and oriented x3 Head Head: normal to inspection Ears: hearing grossly normal bilaterally Nose: external nose normal Face and Sinus: face symmetric Mout h: oral mucosae normal Eyes General: appearance normal, both eyes and all related structures Eyelids: eyelids normal Neck Neck: no JVD and normal visual inspection Carotids: normal carotid upstroke Ches t Chest inspection: normal inspection of the chest and normal respiratory effort; negative cough Auscultation: Bilateral: Clear to Auscultation Cardio Rate: regular rate Rhythm: regular rhythm Heart saul nds: S1 normal and S2 normal; negative rub or gallop GI GI: normal to inspection Neuro General: alert, awake, oriented x3 and CN's II-XI intact bilaterally Skin Skin: no rashes or lesions noted Extremit ies Pulses: Normal: Right Posterior Tibial Pulse, Left Posterior Tibial Pulse, Right Radial Pulse, Left Radial Pulse Lower Extremity Edema: None: Bilateral Psych Psychological: normal affect Supplemen mary ann Info Echocardiogram from September 2017 showed normal LV size, estimated ejection fraction of 60%, mild mitral valve insufficiency, RVSP of 42 mmHg, mild aortic valve insufficiency, and when compared to previous study no significant changes. Carotid duplex ultrasound from September 2017 Moderate (50-69%) stenosis right extracranial internal carotid. Left internal carotid artery is occluded. Flow wi thin the vertebral arteries is antegrade bilaterally.Moderate (50-69%) stenosis right extracranial internal carotid. Left internal carotid artery is occluded. Flow within the vertebral arteries is anteg rade bilaterally. Stress test from February 2016 was a normal pharmacological myocardial perfusion stress test with a preserved ejection fraction of 63%. Heart catheterization from December 2009 showed nonobst ructive coronary artery disease, normal LV function, normal filling pressures, and hypertensive heart disease. Assessment AND Plan 1. Persistent atrial fibrillation I48.1 ALEX Rose Linda ent's heart rate is well controlled without any beta-blockers. He has not tolerated beta-blockers in the past due to bradycardia. He does acknowledge some episodes of increased palpitations which result s in fatigue. This resolves on its own. We will continue to monitor this. He will continue with Coumadin therapy. His most recent echocardiogram in June 2018 showed preserved ejection fraction of 60 %. 2. 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 His stress test in February 2016 was negative for stress-induced myocardial ischemia. His echocardiogram in September 2017 showed preserved ejection fraction of 60%. Patient denies any chest pain, arm pain, jaw pain, or neck pain. His shortness of breath has remained stable. He will continue current medications and we will continue to monitor. 3. Essential hypertension I10 Joel Rose-C Patient blood pressure initially was elevated. Upon recheck it normalized. He will continue current medications and we will continue to monitor. 4. Pure hypercholesterolemia E78.00 ALEX Mitchell He will continue with current high-dose statin medication. 5. 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 Plan Detail Additional Comments - ALEX Tyson Discussed the above patient with Dr. Arrington, he agrees with the plan of care. Thank you for allowing us to participate in the patients plan of care, if you have any questions please do not hesitate to call. This note was generated using a voice recognition system and there may be incorrect words, spelling or punctuation that were not noted when reviewing the office note prior to saving. 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 transplanted heart: [place] heart Essential hypertension I10 Hypertension type: essential hy pertension Pure hypercholesterolemia E78.00 Hyperlipidemia type: pure hypercholesterolemia [facility] (current) use of anticoagulants Z79.01 Coding Level of Care Code Off vis,est,level 3 Diagnoses Per sistent atrial fibrillation I48.1 Atrial fibrillation type: persistent Atherosclerosis of [place] coronary artery of [place] heart without angina pectoris I25.10 [place] vs. transplanted heart: [place] hear t Essential hypertension I10 Hypertension type: essential hypertension Pure hypercholesterolemia E78.00 Hyperlipidemia type: pure hypercholesterolemia medical terminologist (current) use of anticoagulants Z79.01 03/15/18 1553 <Electronically signed by Ryan JOHNSON> Date Ryan JOHNSON 03/17/18 1634<Electronically signed by Antonio Arrington MD> Cosigner Signature: Date (if applicable) Antonio Arrington MD CC: Yoon Tony NP 25-Nov-2017 Surgery Visit Report Result: Comments: See Note; NOTES: [facility] [address] [place] [address] OFFICE VISIT Date of Service: 11/25/17 MR#: [id number] Acct: [id number] Name: VIDHYA PALMER Rep #: [id number] : 1940 Provider: Roger Bhatia MD Age/Sex: 77/M Location: [facility] Status: Signed Intake Intake Visit Reasons: Discuss CTA results Chief Complaint: CTA results--disc uss surgery Director Banking Required: No Is patient in pain?: No Allergies No Known Allergies Allergy (Verified 11/25/17 13:02) Medications Lisinopril [Zestril] 20 mg PO BID 10/21/13 [History Confirmed 11/25/17] Multivitamins,Therapeutic [Multivitamin] 1 tab PO DAILY 10/21/13 [History Confirmed 11/25/17] warfarin 1 mg tablet 1 mg PO QDAY 08/06/17 [History Confirmed 11/25/17] hydrochlorothiazide 25 mg tablet 25 mg PO QDAY #90 tab 09/03/17 [Rx Confirmed 11/25/17] acetaminophen 325 mg tablet 650 mg PO QDAY tab 09/09/17 [History Confirmed 11/25/17] amlodipine 10 mg tablet 10 mg PO QDAY 09/09/17 [Histor y Confirmed 11/25/17] atorvastatin 80 mg tablet 80 mg PO QDAY 09/09/17 [History Confirmed 11/25/17] cyanocobalamin (vit B-12) 100 mcg tablet 100 mcg PO QDAY 09/09/17 [History Confirmed 11/25/17] metform in 1,000 mg tablet 1,000 mg PO BID 09/15/17 [History Confirmed 11/25/17] metoprolol tartrate 25 mg tablet 25 mg PO .COMPLEX 09/15/17 [History Confirmed 11/25/17] warfarin 2 mg tablet 2 mg PO .COMPLEX #1 80 tab 11/13/17 [Rx Confirmed 11/25/17] [facility] Medical History Diabetes mellitus, type II (Chronic) Hyperlipidemia (Chronic) Hypertension (Chronic) Dyspne a on exertion (Chronic) History of stroke (Chronic) 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) Patent foramen ovale (Chronic) Atherosclerotic heart disease of [place] coronary artery without angina pectoris (Chronic) Paroxysmal atrial fibrillation (Chronic) medical terminologist (current) use of anticoagulants (Chronic) History of prostate cancer (Acute) Surgical History S/P prostatectomy (Acute) S/P total knee replacement (Acute) Family History Sister Diabetes Heart disease Brother Colon cancer F ather CVA (cerebral vascular accident) Social History Smoking Status: Never smoker HPI HPI HPI: VIDHYA PALMER, is a 77 M who presents to the office today for surgical follow-up regarding CTA exa mination of his carotids. Please refer to my previous office note of October 27, 2017. Approximately 4 years prior the patient had had a stroke. The patient was under evaluation by Dr. Antonio Arrington. On F ebruary 2017 at the [facility] carotid duplex imaging was obtained. Peak systolic velocity within the right internal carotid was 223 cm per sec with end-diastolic flow 47. This was f elt to be consistent with 50-69% stenosis of the right internal carotid. The patient was noted to have an occluded left internal carotid. At my request we proceeded with CTA of the carotids. On October 162017 at the [facility] CTA of the carotids were obtained. This demonstrated moderate narrowing of the right carotid bulb. This was not felt to be hemodynamically significant. The linda ent was noted to have occlusion of the origin of the left internal carotid with subsequent reconstitution via collaterals. Assessment AND Plan 1. 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 I have her viewed the ultrasound imaging and CT imaging of the patient's carotids. He is well aware that he has occlusion of the left internal carotid and moderate disease on the right. I am not recommending surgical intervention at this time. We extensively discussed the need for him to participate in his general health. I am r ecommending a plant-based diet and weight loss and daily exercise and cholesterol/lipid control and blood pressure control and diabetes control and hypertension management. The patient is aware that th dari are modifiable factors and that he can significantly participate in maximizing his own health. He has had an opportunity to ask and have questions answered. I recommend carotid duplex imaging at 1 year and I anticipate seeing him back subsequent to that. I certainly would be more than happy to see him sooner if there is a change in his clinical progress. Cc: Dr. Antonio Arrington and WILLIAN Babcock M.D., F.A.C.S. 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 11/25/17 1645 <Electronically signed by Rachel Bhatia MD> Date Roger Bhatia MD Cosigner Signature: Date (if applicable) CC: Yoon Tony COLD SAW OPERATOR; Antonio Arrington MD 04-Nov-2017 CTA Neck W/WO Contrast Result: Comments: See Note; NOTES: [facility] [address] [place] [address] CTA Neck W/WO Contrast MR#: [id number] Acct: [id number] Name: VIDHYA PALMER Rep #: [id number] : 1940 M 77 From: [place]io Landin MD PCP: Yoon Tony NP Status: REG CLI Study: CTA Neck W/WO Contrast Date of Exam: 11/04/17 Exam# [id number] Ordering Dr: Roger Bhatia MD CTA of the neck Comparison study:, October 17, 2013 Indication carotid stenosis TECHNIQUE: CTA of the neck was performed scanning in a dynamically enhanced fashion following contrast administration followed by sagit mary ann and coronal reconstructions. Radiographic technique was optimized to limit patient radiation dose. FINDINGS: There is mild diffuse soft plaque throughout the right common carotid without evidence f or hemodynamically significant stenosis. There is moderate calcific plaque at the carotid bulb and moderate plaque of the origin of the internal carotid without evidence for hemodynamically significant stenosis. There is mild diffuse soft plaque noted within the left common carotid. There is severe calcific plaque of the carotid bulb and origin of the internal carotid with severe greater than 75% sabi nosis of the internal carotid. There is occlusion slightly more distally and then reconstitution by collaterals The left vertebral is dominant. There is mild calcific plaquing of the distal vertebrals There is no significant segmental stenosis of the vertebrals.. There has been slight interval progression of the calcific plaque bilaterally since prior study. CT/CTA Neck W/WO Cont rast IMPRESSION: Moderate to severe atherosclerotic disease more severe on the left with hemodynamically significant stenosis of the origin of the internal carotid and occlusion followed by reconstituti on via collaterals. There is moderate narrowing of the right carotid bulb Electronically Signed: [place]io Landin MD at 17:04 EDT , Service support , Fax CC: Yoon Tony COLD SAW OPERATOR; Roger Bhatia MD Procurement Coordinator: Signed 27-Oct-2017 Surgery Visit Report Result: Comments: See Note; NOTES: [facility] [address] [place] [address] [place] [address] OFFICE VISIT Date of Service: 10/27/17 MR#: [id number] Acct: [id number] Name: VIDHYA CURTIS Rep #: [id number] : 1940 Provider: Roger Bhatia MD Age/Sex: 77/M Location: [facility] Status: Signed Intake Vital Signs10/27/17 Height 5 ft 4 in 10/27/17 Weight: 218 lb 2 oz Intake Visit Reasons: CAROTID STENOSIS Chief Complaint: CAROTID STENOSIS Director Banking Required: No Is patient in pain?: No Allergies No Known Allergies Allergy (Verified 10/27/17 13:32) Medications Lisin opril [Zestril] 20 mg PO BID 10/21/13 [History Confirmed 10/27/17] Multivitamins,Therapeutic [Multivitamin] 1 tab PO DAILY 10/21/13 [History Confirmed 10/27/17] warfarin 1 mg tablet 1 mg PO QDAY 7 [History Confirmed 10/27/17] warfarin 2 mg tablet 2 mg PO QDAY 08/06/17 [History Confirmed 10/27/17] hydrochlorothiazide 25 mg tablet 25 mg PO QDAY #90 tab 09/03/17 [Rx Confirmed 10/27/17] acetaminoph en 325 mg tablet 650 mg PO QDAY tab 09/09/17 [History Confirmed 10/27/17] amlodipine 10 mg tablet 10 mg PO QDAY 09/09/17 [History Confirmed 10/27/17] atorvastatin 80 mg tablet 80 mg PO QDAY 09/09/17 [Hi story Confirmed 10/27/17] cyanocobalamin (vit B-12) 100 mcg tablet 100 mcg PO QDAY 09/09/17 [History Confirmed 10/27/17] metformin 1,000 mg tablet 1,000 mg PO BID 09/15/17 [History Confirmed 10/27/17] m etoprolol tartrate 25 mg tablet 25 mg PO .COMPLEX 09/15/17 [History Confirmed 10/27/17] PFSH Medical History Diabetes mellitus, type II (Chronic) Hyperlipidemia (Chronic) Hypertension (Chronic) Dysp cesario on exertion (Chronic) History of stroke (Chronic) 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) Patent foramen ovale (Chronic) Atherosclerotic heart disease of [place] coronary arter y without angina pectoris (Chronic) Paroxysmal atrial fibrillation (Chronic) medical terminologist (current) use of anticoagulants (Chronic) History of prostate cancer (Acute) Surgical History S/P prostatectomy (Acute) S/P total knee replacement (Acute) Family History Sister Diabetes Heart disease Brother Colon cancer Father CVA (cerebral vascular accident) Social History Smoking Status: Never smoker HPI HPI HPI: VIDHYA PALMER, is a 77 M who presents to the office today for surgical consultation regarding extracranial carotid artery occlusive disease. This patient is referred by Dr. Antonio Arrington for carotid evaluation. The patient is tentatively considering future total knee replacement. A written copy of my surgical consult recommendations will be returned to Dr. Antonio Arrington. For at least 5 year s the patient's had atrial fibrillation. He is on chronic anticoagulation. He states that about 4 years ago he had a right total knee replacement. The patient and family members present are not very spe cific as far as the timing of his stroke but there is some suggestion that it was around the time that he was off of his anticoagulation. At the [facility] on September 29, 2017 carotid duplex imaging was obtained. This was interpreted by Dr. Daquan Jones. Peak systolic velocity within the proximal right internal carotid is 223 cm/s with end- diastolic flow of 47. Velocities within the right external carotid artery elevated 139 cm/s peak systolic flow. The left internal carotid is occluded. The left proximal external carotid demonstrates increased velocity. Bilateral vertebrals are pa tent and antegrade. There is felt to be 50-69% stenosis of the right internal carotid with an occluded left carotid. The patient has also had an echocardiogram September 29, 2017. Normal left ventricular size. Ejection fraction 60%. Mild mitral valve deficiency. Pulmonary systolic pressure 42. 1+ aortic valve insufficiency. No change from the prior study. The patient states that when he had his prior stroke that there were nondescript symptoms memory issues etc. he absolutely denies any focal weakness of either upper or lower extremity. The patient has a slight slurred speech and hearing deficit req uiring hearing aids but apparently those issues have been over a more prolonged period of time. He denies any orthostasis. He otherwise feels that he is enjoying good health. He does not get any routin e exercise. ROS General General: No weight change, appetite, fatigue, colon cancer, breast cancer or weakness HEENT HEENT: No difficulty swallowing, eye injury, eye surgery, swollen glands or hoarsen ess Endo Endocrine: Yes diabetes mellitus; no thyroid disease, thyroid cancer, Hair loss, heat intolerance or cold intolerance Skin Skin: No rash or changing moles Breast Breast: No left breast lump, ri ght breast lump, nipple discharge, breast pain, abnormal mammogram, abnormal US or breast enlargement Musc Musculoskeletal: Yes back problems and arthritis; no rheumatoid arthritis, gout or joint pain C ardio Cardiovascular: Yes atrial fibrillation and high blood pressure; no murmur, pacemaker, heart disease, heart attack, heart stent, palpitations, shortness of breat with exertion or chest pain Psych Psychiatric: Yes anxiety; no depression or hearing voices Resp Respiratory: Yes shortness of breath, Yes sleep apnea, No cough, No COPD, No asthma, No emphysema, No wheezing Gastro Gastrointestinal: No abdominal pain, No nausea or vomiting, No diarrhea, No constipation, No blood in stool, Yes acid reflux, No hemorrhoids, No ulcers, No gallbladder problem, No black,tarry stools Nilay Hematologic: Yes bl ood thinners, No blood disorders, No bleeding, No anemia, No blood clots Neuro Neurologic: No system reviewed and no additional complaints, except as docu, No as per HPI, No abnormal walking, No abnorma l hearing, No abnormal movements, No abnormal speech, No behavioral changes, No burning sensations, No confusion, No seizure-like activity, No unsteadiness, No dizziness, No localized weakness, No frequ ent falls, No headache(s), No lack of coordination, No loss of vision, No memory loss, No numbness, No other visual disturbances, No radiating pain, No restless legs, No sensory deficit, No fainting, No tingling, No tremor(s), No weakness, Yes other (CVA 2013) Exam Const General: cooperative, comfortable, healthy appearing, no acute distress Nutritional Appearance: overweight Orientation: alert, constantine ke HENSC Head: normal to inspection Ears: other (Hearing aids bilaterally) Eyes General: appearance normal, both eyes and all related structures Neck Neck: normal visual inspection Chest Chest palpation AND inspection: normal inspection of the chest Breast Palpation: No nipple discharge Resp Effort AND Inspection: normal respiratory effort Auscultation: clear to auscultation bilaterally Cardio Rate: r egular rate Rhythm: regular rhythm Heart Sounds: no murmurs Other: Left carotid is 1+. Left brachial 2+. Left radial 2+. The right carotid is 2+. Right brachial 2+. Right radial 1+. Bilateral femorals a re 2+. Soft 1/6 carotid bruit on the right noted GI Inspection: normal to inspection Palpation: soft, no hepatosplenomegaly Auscultation: normal bowel sounds Other: Not pulsatile or expansile. No focal tenderness Skin General: no rashes or lesions noted Neuro Cranial Nerves: CN's II-XI intact bilaterally Extrem General: no calf tenderness Psych Affect: normal affect Assessment AND Plan Problems 1. O cclusion and stenosis of bilateral carotid arteries I65.23 Plan I suspect the slightly increased velocity of the right internal carotid is in part compensatory to the occlusion on the left. However the patient currently is at increased interventional risk. I believe that a CTA of the carotids of the neck would be pertinent. I will then have the patient return to my office to discuss further issues. T he patient is not yet scheduled for orthopedic consultation or intervention. I believe that it is pertinent to more thoroughly evaluate his carotids currently prior to then offered recommendations as to the relative safety of proceeding with orthopedic repair. The patient and his family members have had an opportunity to ask and have questions answered and they are comfortable with this approach. I a dditionally then took time to encourage the patient to participate in maximization of his medical care. We discussed briefly his cholesterol level and diet and body habitus and exercise and blood pressu re. He did make a comment that every day he eats luncheon meats and I suggested to him that he might consider altering that approach and very more toward a vegetarian diet. Questions were answered. I a nticipate seeing the patient back to my office subsequent to the further carotid imaging. I appreciate the kind opportunity of assisting with his surgical care. Roger Bhatia M.D., F.A.C.S. Cc: Dr. 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 10/27/170 <Electronically signed by Roger Bhatia MD> Date Roger Bhatia MD Cosigner Signature: Date (if applicable) CC: Yoon Tony COLD SAW OPERATOR; Antonio Arrington MD 09-Oct-2017 Carotid Duplex Ultrasound Result: Comments: See Note; NOTES: [facility] [address] [place] [address] Carotid Duplex Ultrasound 09/29/17 1203 MR#: [id number] Acct: [id number] Name: VIDHYA RESENDIZ Rep #: [id number] : 1940 77 From: Daquan Jones MD Attending Dr: Antonio Arrington MD Status: REG CLI Ordering Dr: Antonio Arrington MD Date: 09/29/17 Location: [facility] Sex: M C Admitted: Re ason For Study: Carotid stenosis Rt. Velocities/BP Lt. Velocities/BP Prox CCA 103.0/17.0 cm/sec. Prox CCA 76.2/12.9 cm/sec. Mid CCA 120.0/20.5 cm/sec. Mid CCA 72.1/15.2 cm/sec. Dist CCA 111.0/24.6 cm/s ec. Dist CCA 74.5/14.7 cm/sec. Prox ICA 223.0/47.1 cm/sec. Prox ECA 3180.0/58.0 cm/sec. Mid ICA 177.0/43.2 cm/sec. Lt. Vert. 75.0/21.1 cm/sec. Dist ICA 96.6/23.7 cm/sec. Rt. ICA/CCA = 1.9. Prox ECA 139. 0/18.1 cm/sec. Rt. Vert. 42.8/10.6 cm/sec. Right Extracranial There is heterogeneous, irregular atherosclerotic plaque noted in the right common carotid artery. There is heterogeneous, irregular athero sclerotic plaque noted in the right internal carotid artery. There is heterogeneous, irregular atherosclerotic plaque noted in the right external carotid artery. Antegrade flow is noted in the right brooke tebral artery. Left Extracranial There is homogeneous, smooth atherosclerotic plaque noted in the left common carotid artery. The left internal carotid artery is occluded. There is heterogeneous, irreg ular atherosclerotic plaque noted in the left external carotid artery. Antegrade flow is noted in the left vertebral artery. Procedure Carotid Duplex 90774. Exam performed in department. Interpretatio n Summary Moderate (50-69%) stenosis right extracranial internal carotid. Left internal carotid artery is occluded. Flow within the vertebral arteries is antegrade bilaterally. Ordering Physician: Antonio Arrington Referring Physician: Antonio Arrington Performed By: Clair Rodriguez RVT Electronically si gned by: MD Daquan Jones on 10/09/2017 02:51 PM 10/09/17 1451 Date Daquan Jones MD CC: Yoon Tony COLD SAW OPERATOR; Antonio Arrington MD Date Dictated: 09/29/17 120 3 Date Transcribed: 10/09/17 1451 Procurement Coordinator: Signed 29-Sep-2017 Echocardiogram Complete Result: Comments: See Note; NOTES: [facility] [address] [place] [address] Echo Complete 09/29/17 1406 MR#: [id number] Acct: [id number] Name: VIDHYA PALMER Rep #: [id number] : 1940 77 From: Antonio Arrington MD Attending Dr: Nury WATSON,Antonio Status: REG CLI Ordering Dr: Antonio Arrington MD Date: 09/29/17 Location: [facility] Sex: M C Admitted: Reason For Study: afib/flutter Procedure This was a 2D Doppler, Color Flow transthoracic echocardiogram. Exam performed in department. Left Ventricle Normal LV size. Left ventricular systolic function is normal. The e stimated ejection fraction is 60 %. No regional wall motion abnormalities noted. Right Ventricle Normal RV size. Normal systolic function. Atria The left atrium is moderately enlarged. Normal right at rium. Patent foramen ovale. Mitral Valve Normal mitral valve. Mild (1+) eccentric mitral valve insufficiency. Tricuspid Valve Normal tricuspid valve. Mild to moderate (1-2+) tricuspid valve insufficien cy. Pulmonary artery systolic pressure is 42 mmHg. Aortic Valve Normal aortic valve. Trisinus/trileaflet aortic valve. Mild (1+) aortic valve insufficiency. Pulmonic Valve Normal pulmonic valve. Grea t Vessels Normal aortic root. The pulmonary artery is normal size. Normal inferior vena cava. Pericardium/Pleural No pericardial effusion. MMode/2D Measurements AND Calculations LVIDd: 4.9 cm IVSd: 0. 91 cm LVOT diam: 2.0 cm LVIDs: 3.4 cm LVPWd: 0.95 cm LVOT area: 3.0 cm2 RVDd: 4.6 cm FS: 32.3 % Ao root diam: 3.3 cm LAV (MOD-bp): 91.0 ml LA A4 area: 27.9 cm2 LA dimension: 3.9 cm LAV(MOD-bp) Indexed: 44.8 ml/m2 LAV(MOD-sp2): 90.3 ml LAV(MOD-sp4): 87.5 ml RA A4 area: 19.1 cm2 Doppler Measurements AND Calculations Ao V2 max: 191.2 cm/sec AI max sterling: 477.4 cm/sec LV V1 max: 129.6 cm/sec Ao max P.7 mmHg AI max P.2 mmHg LV V1 max P .8 mmHg PEARL(V,D): 2.0 cm2 AI dec slope: 181.1 cm/sec2 AI P1/2t: 772.3 msec TR max sterling: 301.9 cm/sec TR max P.5 mmHg Interpretation Summary Normal LV size. Left ventricular systolic function is normal. The estimated ejection fraction is 60 %. Mild (1+) eccentric mitral valve insufficiency. Pulmonary artery systo lic pressure is 42 mmHg. Mild (1+) aortic valve insufficiency. Compared to prior study, there is no significant change. __ Ordering Physician: Antonio Arrington Referring Physician: YOON TONY Performed By: Maddie Call, GALINA, RVT 8 1714 Date Antonio Arrington MD CC: Yoon Tony COLD SAW OPERATOR; Antonio Arrington MD Date Dictated: 09/29/17 1406 Date Transcribed: 09/29/171713 Procurement Coordinator: Signed 15-Sep-2017 Cardiology Visit Report Result: Comments: See Note; NOTES: [facility] [address] [place] [address] OFFICE VISIT Date of Service: 09/15/17 MR#: [id number] Acct: [id number] Name: VIDHYA PALMER Rep #: [id number] : 1940 Provider: Antonio Arrington MD Age/Sex: 77/M Location: [facility] Status: Signed HPI 6 M FU (we moved from 09-01-17): Chief Complaint: Follow-up visit. Details: VIDHYA PALMER, is a 77 M who presents to the office today for a follow-up visit as well as assessment for possible left knee surgery. He is a gentleman with a history of mild coronary artery disease and with chronic persistent atrial fibrillation hypertension hyperlipidemia and diabetes. He says that he has been doing well other than some shortness of breath. This however appears to be chronic. He has had no dizzin ess or diaphoresis no near syncope or syncope. He tells me that he may be needing left knee replacement. You do remember that in 2013 he presented with strokelike symptoms he had an MRI done which demon strated and confirmed a CVA and a carotid ultrasound demonstrated a totally occluded left internal carotid artery with 50-69% stenosis of the right coronary artery. He has not had any other cardiac symp toms and has remained on anticoagulation. His physical exam today demonstrates clear lung jordan irregular regular heart rate and no pedal edema. Intake Vital Signs09/15/17 Height 5 ft 4 in 09/15/17 We ight: 227 lb 09/15/17 Body Mass Index (BMI) 38.9 09/15/17 Blood Pressure 120/60 Intake Visit Reasons: 6 M FU (we moved from 09-01-17) Accompanied by: Is patient in pain?: No Allergies No Known Al lergies Allergy (Verified 09/15/17 13:13) Medications Lisinopril [Zestril] 20 mg PO BID 10/21/13 [History Confirmed 09/15/17] Multivitamins,Therapeutic [Multivitamin] 1 tab PO DAILY 10/21/13 [Histor y Confirmed 09/15/17] warfarin 1 mg tablet 1 mg PO QDAY 08/06/17 [History Confirmed 09/15/17] warfarin 2 mg tablet 2 mg PO QDAY 08/06/17 [History Confirmed 09/15/17] hydrochlorothiazide 25 mg tablet 25 mg PO QDAY #90 tab 09/03/17 [Rx Confirmed 09/15/17] acetaminophen 325 mg tablet 650 mg PO QDAY tab 09/09/17 [History Confirmed 09/15/17] amlodipine 10 mg tablet 10 mg PO QDAY 09/09/17 [History Confirmed 09/15/17] atorvastatin 80 mg tablet 80 mg PO QDAY 09/09/17 [History Confirmed 09/15/17] cyanocobalamin (vit B-12) 100 mcg tablet 100 mcg PO QDAY 09/09/17 [History Confirmed 09/15/17] metformin 1,000 mg tablet 1,000 mg PO BID 09/15/17 [History Confirmed 09/15/17] metoprolol tartrate 25 mg tablet 25 mg PO .COMPLEX 09/15/17 [History Confirmed 09/15/17] Ejection fraction %: 60 to 64 [facility] Medical Histo ry Diabetes mellitus, type II (Chronic) Hyperlipidemia (Chronic) Hypertension (Chronic) Dyspnea on exertion (Chronic) History of stroke (Chronic) Occlusio n and stenosis of bilateral carotid arteries (Chronic) Patent foramen ovale (Chronic) Atherosclerotic heart disease of [place] coronary artery without angina pectoris (Chronic) Paroxysmal atrial fibrilla tion (Chronic) FCI (current) use of anticoagulants (Chronic) Social History Smoking Status: Never smoker ROS Const Const: Negative for body ache, fever(s), chills, night sweats, daytime sle epiness, difficulty sleeping, weight gain, weight loss, increased appetite, poor appetite, anorexia or other ENT ENT: Negative for balance problems, Positive for dizziness (occasional with standing, has carotid artery blockage on left side) Cardio Chest Pain: No Palpitations: Negative for Yes or No Edema: None Muscle aches with walking: None Resp Respiratory: Positive for SOB with activity (COPD); neg ative for SOB at rest, SOB orthopnea\SOB lying down, Coughing up blood/hemoptysis, chest congestion, pain on inspiration, snoring, stridor, wheezing, crackles, paroxysmal nocturnal dyspnea or other GI G I: Negative nausea, vomiting, heartburn, constipation, belching, bloating, cramping, vomiting blood/hematemesis, bright, red blood in stools, black,tarry stools, loose stools, Difficulty Swallowing or o ther Musc Musc: Negative for muscle aches/ myalgia, muscle weakness, joint pain or balance problems Neuro Neuro: Positive for dizziness (occasional with standing, has carotid artery blockage on left chicho e) Cardiology Exam Const Appearance: cooperative, healthy appearing, well developed, well groomed and no acute distress Nutritional Appearance: well nourished and average body habitus Orientation: severo rt, awake and oriented x3 Head Head: normal to inspection, normocephalic and atraumatic Ears: hearing grossly normal bilaterally and external ears normal Nose: external nose normal, nasal mucous membran es and turbinates normal, nares normal, septum normal, no nasal discharge Face and Sinus: face symmetric Mouth: oral mucosae normal, tongue normal, oropharynx normal and moist mucous membranes Teeth and gingiva: dentition normal Throat: posterior oropharynx normal, tonsils normal and uvula midline Eyes General: appearance normal, both eyes and all related structures Eyelids: eyelids normal Conjunctiva e: conjunctivae normal Pupils: PERRL, normal by confrontation and accommodation normal EOM: EOM intact bilaterally Neck Neck: normal visual inspection, trachea midline and no JVD JVD: +5 Carotids: ankit l carotid upstroke and bounding pulses Chest Chest inspection: normal inspection of the chest, symmetric chest movement and normal respiratory effort Auscultation: Bilateral: Clear to Auscultation Cardi o Palpation: normal PMI Rate: regular rate Rhythm: irregular rhythm Heart sounds: S1 normal, S2 normal and normal, physiologic split S2; negative rub, gallop or murmur GI GI: normal to inspection, soft, no hepatosplenomegaly and bowel sounds present Neuro General: alert, awake, oriented x3, no focal sensory deficit, gait normal and moves all extremities Skin Skin: no rashes or lesions noted Extremitie s Pulses: Normal: Right Femoral Pulse, Left Femoral Pulse, Right Dorsalis Pedis Pulse, Left Dorsalis Pedis Pulse, Right Posterior Tibial Pulse, Left Posterior Tibial Pulse, Right Radial Pulse, Left Radi al Pulse Lower Extremity Edema: None: Bilateral Musculoskel Musculoskeletal: No joint tenderness Psych Psychological: normal affect Assessment AND Plan 1. Preop cardiovascular exam Z01.[address] ms of his preoperative status he appears to be fairly stable at this time I do not see any obvious contraindications though I would like to further reassess his carotid anatomy. He did have a stress butch t in 2016 with no evidence of ischemia and I do not think this needs to be repeated. He should continue his anticoagulation and this may need to be held a few days prior to his knee replacement and resu med shortly afterwards. As you know he is at fairly high risk for cerebrovascular event and the duration should be shortened as much as possible. Orders Orders: 2. Essential hypertension I10 Plan His b lood pressure is under good control on the current medical therapy with the amlodipine hydrochlorothiazide and lisinopril as well as metoprolol. No changes will be made. 3. Paroxysmal atrial fibrillati on I48.0 Plan He does have chronic persistent atrial fibrillation at this time he is anticoagulated with an INR of 2-3. The plan will be for him to continue his metoprolol at the same dosage. An echocar diogram should be performed to assess his left ventricular function. 4. 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 5. Pure hypercholesterolemia E78.00; E78.0 Plan He remains on high intensity statin which will be continued. Routine lipid prof ile should be obtained. Thank you for allowing me to participate in the care of your patient. Please don't hesitate to call if any issues arise Plan Detail Other Orders Orders: Follow Up 6 Months (mmm ) Coding Level of Care Code Off vis,est,level 4 Diagnoses Preop cardiovascular exam Z01.810 Essential hypertension I10 Hypertension type: essential hypertension Paroxysmal atrial fibrillation I48.0 O cclusion and stenosis of bilateral carotid arteries I65.23 Pure hypercholesterolemia E78.00; E78.0 Hyperlipidemia type: pure hypercholesterolemia 09/15/17 1330 <Electronically signed by Antonio Arrington MD> Date Antonio Arrington MD Cosigner Signature: Date (if applicable) CC: Yoon Tony WILLIAN 05-Mar-2016 Nuclear Stress Test - Chemical Result: Comments: See Note; NOTES: [facility] [address] [place] [address] Verdana 4d Nuclear Stress Test - Chemical MR#: [id number] Acct: [id number] N vannessa: VIDHYA PALMER Rep #: [id number] : 1940 75 From: Antonio Arrington MD Primary Care: Milli Jackson MD Status: REG CLI Ordering Dr: Anu Torres Sex: M C DATE OF SERVICE: 02/15 This is a pharmacologic myocardial perfusion stress test. A 75-year-old male with a history of coronary artery disease. MEDICATIONS: Coumadin, lisinopril, metoprolol, atorvastatin, Norvasc , metformin, hydrochlorothiazide. Resting EKG demonstrates atrial fibrillation with a rate of 67 beats per minute. Normal intervals are noted. Resting blood pressure was 162/90. 0.4 mg of regadenos on was infused per usual protocol followed by rapid intravenous saline flush injection. Continuous EKG monitoring was performed. The patient maintained atrial fibrillation throughout the recording wit h a controlled ventricular response rate. The maximum heart rate attained was 79 beats, which was _58% of maximum predicted heart rate. The maximum workload attained was 1 MET. At rest, there were no ST or T-wave changes noted to suggest abnormal flow reserve. At peak infusion, no ST or T-wave changes were noted to suggest abnormal flow reserve. MYOCARDIAL PERFUSION PROTOCOL: 14.4 mCi of sestam ibi was injected at rest. 0.4 mg of regadenoson was infused per usual protocol. At peak infusion, 44.7 mCi of sestamibi was injected. Stress images were obtained. Stress and rest images were reconstru cted and compared in the short axis, vertical long and horizontal long axes. Gated images were also obtained. PERFUSION SPECT ANALYSIS: Review of the images demonstrated normal uptake of tracer note d in all areas of the myocardium. The resting images similarly demonstrated normal uptake of tracer noted in all areas of the myocardium. No areas of reversibility are noted to suggest ischemia. GAT ED SPECT ANALYSIS: The gated ejection fraction is noted to be 63%. CONCLUSION: 1. Normal pharmacologic myocardial perfusion stress test. 2. Preserved ejection fraction. Antonio Arrington MD T: N NOHELIA JOB: [id number] 03/18/16 1226 <Electronically signed by Antonio Arrington MD> Date Antonio Arrington MD CC: Milli Jackson MD; Anu garcia Date Dictated: 03/05/16 1023 Date Transcribed: 03/05/16 1023 Procurement Coordinator: Signed 14-Dec-2015 Sleep Study Report Result: Comments: See Note; NOTES: [facility] [address] [place] [address] Polysomnography with NCPAP MR#: [id number] Acct: [id number] Name: VIDHYA PALMER Rep #: [id number] : 1940 75 From: Tutu Espinoza MD PCP: Milli Jackson MD Status: REG CLI Ordering Dr.: Elaine Mckinnon Date: 12/10/15 Sex: M C DATE OF SERVICE: 12/10/2015 SCORING RULES: Respiratory events were acquired and scored in accordance with the Recommended Standards and Specifications as outlined in the AASM Manual for the Scoring of Sleep and Associated Luciana nts ( most recent version). Please note that a reference to [facility] AHI in this report is consistent with the current Hypopnea definition according to Medicare Criteria and an AAS AHI reference is consist ent with the current Hypopnea definition according to the AASM criteria and is recognized by [facility] as the RDI. PROCEDURE: The study was attended continuously by a concrete technician. Monitored parameter s included left and right EOG, frontal, central, and occipital EEG, mental and submental EMG, left and right anterior tibialis EMG, signal ECG waveform, snore, continuous airflow with PAP device flow signal, chest and abdominal plethysmography efforts, oxygen saturation with heart rate, and body positioning with video monitoring. REFERRING PHYSICIAN: Nurse Practitioner, Elaine Mckinnon. HISTO RY OF PRESENT ILLNESS: The patient is a 75-year-old gentleman with a calculated body mass index of 37.8 and Navarro Sleepiness Scale score of 4/24 The patient has a known history of sleep disordered breathing as determined by overnight polysomnogram performed on November 06, 2015, showing overall AHI of 65.8, supine AHI of 56. Central respiratory events were also present during the study. The patien t is now undergoing titration to determine appropriate CPAP setting to normalize apnea/hypopnea index and attempt to maintain oxygen saturations greater than 90%. ADDITIONAL MEDICAL HISTORY: Signif icant for dementia, carotid artery stenosis, stroke, atrial fibrillation, obesity, hypertension. MEDICATIONS REPORTED AT TIME OF STUDY: Include Lipitor, ezetimibe, lisinopril, metoprolol, metformin, warfarin, fiber caps, vitamin D3. MASK USED DURING TITRATION: Gu[employer]pa [employer] Simplus full face mask, size medium. SLEEP STUDY DATA: The overnight titration study began at 10:57:08 p.m. and en ded 05:20:53 a.m. for a total recording time of 383.7 minutes of which sleep period of time of 358.3 minutes. Total sleep time 154.5 minutes for a calculated sleep efficiency of 40.3%. Note that sleep was quite fragmented throughout this study, much of which was due to the patient not being acclimated to CPAP and difficulty adjusting to use of pressure throughout the night. Sleep latency was 25.5 minutes with a REM latency of 340 minutes. Prolongation in REM latency is primarily due to fragmentation of sleep as above. Sleep stage percentages were as follows, N1 11%, N2 67.6%, N3 10%, REM 11.3 % of total sleep. There were a total of 70 arousals during the study, resulting in an overall arousal index of 27.2. The respiratory arousal index was 4.7 while spontaneous arousal index was 22.5. Chowdary b movement arousal index was 0. CONTINUOUS POSITIVE AIRWAY PRESSURE DATA: The patient was initially titrated on CPAP settings of 7 and 9 cm of water with humidification. The patient's apnea/hypopne a index was improving on higher tested setting of 9 cm of water with humidification. The patient could not tolerate this pressure setting. Thus, the patient was switched to Bilevel and titrated on set tings 9/5 and 11/7 cm of water with humidification. Overall, the patient did best on a Bilevel setting of 11/7 cm of water with humidification. On this setting 6 minutes of non-REM sleep and 17 minut es and 30 seconds of REM sleep were recorded. Note, however, the patient was not supine during this portion of the study. On this setting, the apnea-hypopnea index for both AASM and CMS guidelines was 0 with the patient having a minimum oxygen saturation of 88% and mean oxygen saturation of 91.1%. Minimal snoring persisted. ELECTROCARDIOGRAM DATA: Mean heart rate during sleep was 53 beats per mi nute. Heart rate was irregular throughout the night. PVCs were noted. The patient appeared to be in atrial fibrillation, it was difficult to discern P waves. LIMB MOVEMENT DATA: There were no perio dic limb movements during the study. DIAGNOSIS: Obstructive sleep apnea syndrome, G47.33. IMPRESSION: 1. At a Bilevel setting of 11/7 cm of water with humidification, the patient's apnea/hypopnea index is normalized. Snoring is near eliminated and oxygen saturations were maintained at or above 88%. However, it is uncertain if this setting would normalize supine related respiratory events. 2. Abnormal sleep architecture likely secondary to first night effect, possible medication effect, titration. RECOMMENDATIONS: 1. Initiate Bilevel at a setting of 11/7 cm of water with humidification. Allow the patient to acclimate to this setting for approximately 4 weeks. At such time, download smartcard. If Smartcard shows AHI greater than 5, it is likely due to residual supine-related respira tory events. In such a case, would recommend the patient return for repeat full night titration study during which the patient is encouraged to sleep in the supine position. 2. Recommend a nocturnal oximetry study in approximately 2-4 weeks of use of positive airway pressure therapy. Oxygen saturations persist less than 90% for most of the night then would recommend supplemental oxygen at 2 L per minute. 3. Encouraged weight loss to optimal body mass index. 4. Recommend the patient be advised to avoid activities or medications that could exacerbate sleep disordered breathing. 5. Recommend t he patient be advised not to drive or operate heavy machinery when sleepy. INTERPRETING PHYSICIAN: Tutu Espinoza Jr., M.D. Tutu Espinoza MD T: NTS JOB: [id number] CC: Tutu Espinoza MD 50 5012/14/15 1255 <Electronically signed by Tutu Espinoza MD> Date Tutu Espinoza MD Co-signature ( if applicable) Date Signed 13-Nov-2015 Sleep Study Report Result: Comments: See Note; NOTES: [facility] [place] [address] Polysomnography MR#: [id number] Acct: [id number] Name: VIDHYA PALMER Marisa Ramos ep #: [id number] : 1940 75 From: Tutu Espinoza MD PCP: Milli Jackson MD Status: REG CLI Ordering Dr.: Elaine Mckinnon Date: 11/06/15 Sex: M C DATE OF SERVICE: SCORING RULES: Res piratory events were acquired and scored in accordance with the Recommended Standards and Specifications as outlined in the AASM Manual for the Scoring of Sleep and Associated Events ( most recent vers ion). Please note that a reference to [facility] AHI in this report is consistent with the current Hypopnea definition according to Medicare Criteria and an AAS AHI reference is consistent with the current H ypopnea definition according to the AASM criteria and is recognized by [facility] as the RDI. PROCEDURE: The study was attended continuously by a concrete technician. Monitored parameters included left and r ight EOG, frontal, central, and occipital EEG, mental and submental EMG, left and right anterior tibialis EMG, signal ECG waveform, snore, continuous airflow with thermistor and nasal pressure transduc er, chest and abdominal plethysmography efforts, oxygen saturation with heart rate, and body positioning with video monitoring. STUDY PERFORMED: November 06, 2015. REFERRING PHYSICIAN: Elaine Sommers. HISTORY: The patient is a 75-year-old gentleman with a calculated body mass index of 37.8 and Navarro Sleepiness Scale score of 4/24. The patient has a known history of dayti me sleepiness, recurrent awakenings during the night, falling asleep while driving, nocturia, and is undergoing this overnight polysomnogram to evaluate for possible sleep disordered breathing. ADD ITIONAL MEDICAL HISTORY: Significant for hypertension, regular heart rhythms, stroke, atrial fibrillation, memory impairment, unspecified. MEDICATIONS REPORTED AT TIME OF STUDY: Include Coumadin, P ravachol, multivitamin, Lopressor, Glucophage, Zestril, Zetia, Byetta, vitamin D3. SLEEP STUDY DATA: The overnight polysomnogram began at 1059:44 p.m. and ended 0501:05 a.m. for a total recording t miller of 361.4 minutes of which the patient slept 73 minutes for a calculated sleep efficiency of 20.2%. Sleep latency was 67 minutes with a REM latency that could not be calculated due to lack of REM s leep. Sleep stage percentages were as follows, N1 92.5%, N2 70.5%, N3 0%, REM 0% of total sleep. There were a total of 108 arousals during the study, resulting in an overall arousal index of 88.8. The respiratory arousal index based on RDI was 10.7 while spontaneous arousal index was 78.1. The patient was restless throughout the night. Uncertain if this is the patient's baseline. This appears prim wendy reason for fragmentation of sleep through most of the night. RESPIRATORY DATA: Snoring was present throughout the recording. Although the patient only managed to sleep for 73 minutes during thi s study, once asleep, respiratory events were quite frequent. The overall apnea/hypopnea index was 65.8 with an RDI of 76.4. More concerning is the majority of respiratory events were of central natur e. Based on AHI, there were a total of 80 respiratory events consisting of 10 obstructive apneas, 36 central apneas, 34 obstructive hypopneas. Again, AHI and RDI may be underestimated due to lack of R EM sleep. Supine position did not appear significantly influenced either of the AHI or the RDI during the study. Mean oxygen saturation during the study is 94% with a minimum oxygen saturation of 84 %. The patient spent 4.1 minutes with an oxygen saturation less than 88%. ELECTROCARDIOGRAM DATA: Mean heart rate during sleep was 62 beats per minute with a range of 50- 79 beats per minute. The pat ient appears to be in atrial fibrillation during the study. PVCs were also present. LIMB MOVEMENT DATA: There were no periodic limb movements during the study. DIAGNOSES: 1. Obstructive sleep security compliance specialist ea syndrome, G47.33. 2. Central sleep apnea syndrome, G47.31. IMPRESSION: 1. Although sleep efficiency was poor during this study, respiratory events were quite frequent and I suspect that respirat ory events are further exacerbating fragmentation of sleep. Based on this study, the patient has had severe mixed sleep disorder meaning that the patient is both obstructive sleep apnea and central sl eep apnea. Respiratory events were associated with arousals as well as oxygen saturation above. 2. Abnormal sleep architecture likely secondary to first night effect, possible medication effect, and respiratory events. RECOMMENDATIONS: 1. Given subjective complaints, the patient's medical history, and the findings of this study, recommend the patient be treated with positive airway pressure the rapy. If this is the choice of therapy, the patient should return for a positive airway pressure titration. During that study, the patient should be encouraged to sleep in the supine position. I dyana cherry also recommend possibly the patient could be acclimated to CPAP at home prior to that study given the poor sleep efficiency noted during the PSG. 2. Recommend the patient be advised to avoid activi ties or medications that could exacerbate sleep disordered breathing. 3. Recommend the patient be advised not to drive or operate heavy machinery when sleepy. 4. Encouraged weight loss to optimal bod y mass index. INTERPRETING PHYSICIAN: Tutu Espinoza Jr., M.D. Tutu Espinoza MD T: NTS JOB: [id number] CC: Tutu Espinoza MD 05 0511/13/15 1018 < Electronically signed by Tutu Espinoza MD> Date Tutu Espinoza MD Co-signature (if applicable) Date Signed -Sep-2015 Brain W/WO Contrast Result: Comments: See Note; NOTES: [facility] [address] [place] [id number] [place] [address] 4d Brain W/WO Contrast MR#: [id number] Acct: [id number] Name: VIDHYA PALMER Rep #: [id number] : 1940 M 75 From: Ly Simons PCP: Milli Jackson MD Status: REG CLI Study: Brain W/WO Contrast Date of Exam: 10/11/15 Exam# [id number] Ordering Dr: Tutu Espinoza MD STUDY: MRI BRAIN WITH AND WITHOUT CONTRAST REASON FOR EXAM: Male, 75 years old. STROKE,APHASIA, HX LT INTERNAL CAROTID ARTERY OCCLUSION -- recheck, dx prostate cancer 5 yrs.ago TECHNIQUE: S tandardized multiplanar fat and water weighted pulse sequences were obtained. 10 ml of Gadavist contrast material was administered intravenously for the contrast portion of the examination. COMPARIS ON: None. FINDINGS: There is mild cerebral atrophy with widening of the extra-axial spaces and ventricular dilatation. There are periventricular and subcortical white matter hyperintensities, consistent with mild chronic microvascular ischemic changes. Again noted are the chronic cortical infarct at the left frontal and right parietal cortex without signific ant change since the prior examination. The pleural Normal bilateral basal ganglia. Normal thalami. There is no extra-axial fluid accumulation. Normal flow voids within the major intracranial circ ulation suggesting patency by spin echo criteria. Normal sella turcica, pituitary gland, infundibular stalk, optic chiasm and hypothalamus. Normal tectal plate and pineal gland. Normal visualized paranasal sinuses. IMPRESSION: No acute intracranial abnormality or masses. Chronic bilateral cortical infarct. Electronically Signed: Ly Simons MD 2015 at 9:26 EST Tel , Service support [phone], CC: Milli Jackson MD; Tutu Espinoza MD Procurement Coordinator: Signed 11-Oct-2015 MRA Head ONLY without Contrast Result: Comments: See Note; NOTES: [facility] [address] [place] [address] [place] 4d MRA Head ONLY without Contrast MR#: [id number] Acct: [id number] Na me: VIDHYA PALMER Rep #: [id number] : 1940 75 From: Ly Simons PCP: Milli Jackson MD Status: REG CLI Study: MRA Head ONLY without Contrast Date of Exam: 10/11/15 Exam# [id number] Order ing Dr: Tutu Espinoza MD STUDY: MRA OF THE HEAD WITHOUT CONTRAST REASON FOR EXAM: Male, 75 years old. STROKE,APHASIA, HX LT INTERNAL CAROTID ARTERY OCCLUSION -- recheck, dx prostate cancer 5 yrs .ago TECHNIQUE: 3-D sppn-hc-yihayq (TOF) imaging was performed with MIPs. The study was performed unenhanced. COMPARISON: October 17, 2013 FINDINGS: Normal righ t cavernous carotid artery with a normal supraclinoid bifurcation. Again noted is the occluded left carotid artery with reconstitution at the level of the carotid common likely through a patent circl e of Chambers. Normal right A1 segments of the anterior cerebral artery. Normal left A1 segments of the anterior cerebral artery. Normal intact anterior communicating artery (ACOM). Normal bilateral A 2 segments of the anterior cerebral arteries. Normal right M1 and M2 segments of the middle cerebral arteries, with a normal M1 bifurcation. Normal left M1 and M2 segments of the middle cerebral ar teries, with a normal M1 bifurcation. Small right posterior communicating artery (PCOM). Normal left posterior communicating artery (PCOM). There is a small atretic right vertebral artery with a do minant left vertebral artery. Normal basilar artery with a normal basilar bifurcation. The visualized bilateral superior cerebellar (SCA) arteries are normal. Normal bilateral P1, P2 and visualized P3 segments of the posterior cerebral arteries. There is no demonstrated aneurysm of the sycuan of Chambers. There is no demonstrated abnormality of the visualized brain. 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 Electronically Signed: Ly Simons MD at 9:26 EST Tel , Service support [phone], Fax CC: Milli Jackson MD; Tutu Espinoza MD Procurement Coordinator: Signed 11-Oct-2015 MRA Neck WITH and W/O Contrast Result: Comments: See Note; NOTES: [facility] [address] [place] [address] [place] 4d MRA Neck WITH and W/O Contrast MR#: [id number] Acct: [id number] Na me: VIDHYA PALMER Rep #: [id number] : 1940 M 75 From: Ly Simons PCP: Milli Jackson MD Status: REG CLI Study: MRA Neck WITH and W/O Contrast Date of Exam: 10/11/15 Exam# [id number] Order ing Dr: Tutu Espinoza MD STUDY: MRA NECK WITH AND WITHOUT CONTRAST REASON FOR EXAM: Male, 75 years old. STROKE,APHASIA, HX LT INTERNAL CAROTID ARTERY OCCLUSION -- recheck, dx prostate cancer 5 y rs.ago TECHNIQUE: 3-D uftx-wz-pzietx (TOF) imaging was performed in an 1.5 T MRI scanner. 10 ml of Gadavist was administered for the contrast enhanced images. COMPARISON: October 17, 2013 CTA FINDINGS: RIGHT CAROTID ARTERIES: Normal right common carotid artery (CCA). Normal right common carotid bulb. There is mild atherosclerotic plaque formation of the or igin of the right internal carotid artery with less than 50% cross sectional diameter stenosis. Normal visualized cervical portion of the right internal carotid artery. Normal origin of the right e xternal carotid artery (ECA). LEFT CAROTID ARTERIES: Normal left common carotid artery (CCA). There is extensive atherosclerotic plaque formation with severe narrowing of the carotid bulb with a he modynamically significant stenosis. There is complete occlusion of the origin of the left internal carotid artery without demonstrated arterial flow. Normal origin of the left external carotid arter y (ECA). VERTEBRAL ARTERIES: There is antegrade flow within the bilateral vertebral arteries with a small right vertebral artery, and a dominant left vertebral artery. IMPRESSION: Unchanged left internal carotid occlusion Electronically Signed: Ly Simons MD at 9:26 EST Tel , Service support [phone], CC: Milli Jackson MD; Tutu Espinoza MD Procurement Coordinator: Signed 13-Jun-2015 Carotid Duplex Ultrasound Result: Comments: See Note; NOTES: [facility] [address] [place] [address] Carotid Duplex Ultrasound 06/11/15 1216 MR#: [id number] Acct: [id number] Name: VIDHYA PALMER Rep #: [id number] : 1940 74 From: Daquan Jones MD Attending Dr: Milli Jackson MD Status: REG CLI Ordering Dr: Milli Jackson MD Date: 06/11/15 Location: CVS Sex: M C Admitted: Rt. Velocities/BP Lt. Velocities/BP Prox CCA 85.6/19.3 cm/sec. Prox CCA 74.5/9.4 cm/sec. Mid CCA 94.4/15.2 cm/sec. Mid CCA 78/15.2 cm/sec. Dist CCA 97.3/18.2 cm/sec. Dist CCA 62.7/ 9.9 cm/sec. Prox ICA 196/50.3 cm/sec. Left ICA occluded. Confirmed by CTA Mid ICA 165/42.2 cm/sec. on 10/2013. Dist ICA 139/28.8 cm/sec. Prox ECA 185/31.4 cm/sec. Rt. ICA/CCA = 2.1. Lt. Vert. 94.3/ 26.2 cm/sec. Prox ECA 103/15.8 cm/sec. Rt. Vert. 53/13.7 cm/sec. Right Extracranial There is heterogeneous, smooth atherosclerotic plaque noted in the right common carotid artery. There is hetero geneous, irregular atherosclerotic plaque noted in the right internal carotid artery. The atherosclerotic plaque causes acoustic shadowing. There is heterogeneous, smooth atherosclerotic plaque note d in the right external carotid artery. Antegrade flow is noted in the right vertebral artery. Left Extracranial There is heterogeneous, smooth atherosclerotic plaque noted in the left common carot id artery. There is heterogeneous, irregular atherosclerotic plaque noted in the left internal carotid artery. The left internal carotid artery is occluded. There is heterogeneous, irregular atherosc lerotic plaque noted in the left external carotid artery. Antegrade flow is noted in the left vertebral artery. Procedure Carotid Duplex 77[address]. The exam was diagnostic. Exam performed in [facility]. Interpretation Summary Moderate (50-69%) stenosis right extracranial internal carotid. The left internal carotid artery appears to be totally occluded. Flow within the vertebral arteries is ante grade bilaterally. Ordering Physician: Milli Jackson Performed By: KATINA Blood Electro nically signed by: MD Daquan Jones on 06/13/2015 11:09 AM 06/13/15 1109 Date Daquan Jones MD CC: Milli Jackson MD Date Dictated: 5 1216 Date Transcribed: 06/13/151108 Procurement Coordinator: Signed 11-Dec-2013 Emergency Department Summary Result: Comments: See Note; NOTES: [facility] [address] [place] [address] Emergency Department Summary MR#: [id number] Acct: [id number] Name: VIDHYA PALMER Rep #: [id number] : 1940 73 From: Asad Mazariegos DO PCP: Milli Jackson MD Status: DEP ER DATE OF SERVICE: 10/21/2013 CHIEF COMPLAINT: 1. Hypertension 2. Recent stroke. HIST ORY OF PRESENT ILLNESS: This is a 73-year-old male who is presenting with his , very poor informant. The patient supposedly was sent to the ER for elevated blood pressures. He states he had troy lly high blood pressures while having an echocardiogram performed. He states he had recent stroke. He has had secondary speech problems. The patient is on warfarin. He is currently on Lopressor, lis inopril and was prescribed Norvasc which he has not started taking. Otherwise, the patient has had a frontal headache. No ataxia. No diplopia or visual disturbance. No dysphasia. The patient has arianna gnosis of carotid artery stenosis bilaterally 50% and 100% right and left respectively. His past history includes diabetes, hypertension, high cholesterol, atrial fibrillation, carotid artery stenosi s as noted above. The patient states he had a stroke 1 month ago and has had previous intracranial hemorrhage. He, however, is on warfarin. The patient sees Dr. Boyle, his neurologist. PRIMARY CAR E PHYSICIAN: Dr. Jackson. ASSEMBLY SUPERVISOR: Dr. Arrington. PHYSICAL EXAMINATION: VITAL SIGNS: Blood pressure 199/99, heart rate is 60. NEUROLOGIC: NIH score was 1 for his speech, this is unchanged for t he patient and ____ since his stroke diagnosis. HEENT: Otherwise, HEENT exam is normal. Mucosal membranes moist and pink. NECK: Supple. No JVD. I did not appreciate any bruit. HEART: Normal. LUNGS : Clear bilaterally. ABDOMEN: Nondistended, active, soft, nontender. Rest of exam normal. EMERGENCY DEPARTMENT COURSE AND LABORATORIES: The patient was observed in the ED, placed on the monitor. Di d a workup for hypertensive emergency, which included EKG, which shows atrial fibrillation at 69 beats per minute with leftward axis deviation and no acute change. I did a CT scan of his head, whic h shows subacute left posterior frontal infarct. Reviewed the patient's records. He actually had an MRI/MRA head and neck performed recently actually on the and 18 of October which showed subacu te infarct, no other records seen beyond admission H and P, etc. I discussed this case with the neurologist, Dr. Espinoza. He reviewed the patient's recent MRI, as well as today CT scan, no hemorrhoids seen today or on the MRI recently, however, given the patient's carotid artery stenosis 100% and 50% with uncontrolled hypertension and his continued symptoms Dr. Espinoza was concerned about the linda ent needing appropriate treatment and perhaps intervention on this. He recommend perhaps transfer the patient spoke to the patient and family. They are in agreement. We will transfer him to [facility]. I spoke to the [facility] doctor. He will be accepted to the [facility] on the Dr. Barnes service. The patient is stable for ground transport. IMPRESSION: 1. Hypertension, u ncontrolled. 2. Cerebrovascular accident, subacute. 3. History of diabetes mellitus, atrial fibrillation, hypercholesterol. DO Mauricio Auguste C: Milli Boyle M.D. T: DEON Cunningham OB: [id number] 12/11/13 1648 <Electronically signed by Asad Mazariegos DO> Date Asad Mazariegos DO CC: Milli Jackson MD Date Dictated: 2208 Date Transcribed: 10/21/132208 Procurement Coordinator: Signed 19-Oct-2013 Carotid Duplex Ultrasound Result: Comments: See Note; NOTES: [facility] [address] [place] [address] Carotid Duplex Ultrasound 10/17/13 1439 MR#: [id number] Acct: [id number] Harshal e: VIDHYA PALMER Rep #: [id number] : 1940 73 From: Daquan Jones MD Attending Dr: Milli Jackson MD Status: REG CLI Ordering Dr: Milli Jackson MD Date: 10/17/13 Location: MRI Sex: M C Adm itted: Rt. Velocities/BP Lt. Velocities/BP Prox CCA 85/18.2 cm/sec. Prox CCA 69.1/ 11.8 cm/sec. Mid CCA 85/14.1 cm/sec. Mid CCA 85.6/11 cm/sec. Dist CCA 89.7/25.2 cm/sec. Dist CCA 62.7/ 11.7 cm /sec. Prox ICA 187/32.7 cm/sec. Mid ICA 45.1/9.3 cm/sec. Mid ICA 152/35.1 cm/sec. Dist ICA 58.1/8.6 cm/sec. Dist ICA 116/29.5 cm/sec. Lt. ICA/CCA = 0.7. Rt. ICA/CCA = 2.2. Prox ECA 147/20.7 cm/sec . Prox ECA 73.8/14.5 cm/sec. Lt. Vert. 79.4/ 16.5 cm/sec. Rt. Vert. 52.6/12.6 cm/sec. Right Extracranial There is heterogeneous, smooth atherosclerotic plaque noted in the right common carotid rajwinder ry. There is heterogeneous, irregular atherosclerotic plaque noted in the right internal carotid artery. The atherosclerotic plaque causes acoustic shadowing. There is heterogeneous, irregular athe rosclerotic plaque noted in the right external carotid artery. Antegrade flow is noted in the right vertebral artery. Left Extracranial There is heterogeneous, smooth atherosclerotic plaque noted i n the left common carotid artery. The atherosclerotic plaque causes acoustic shadowing. LICA - trickle flow noted. There is heterogeneous, irregular atherosclerotic plaque noted in the left external carotid artery. Antegrade flow is noted in the left vertebral artery. Called prelim to Dr. Jackson's office. Patient being sent for a CTA. Procedure Carotid Duplex 68399. The exam was diagnostic. Exam performed in department. Interpretation Summary Moderate (50-69%) stenosis right extracranial internal carotid. Flow within the vertebral arteries is antegrade bilaterally. Acoustic shadowing in left internal carotid with tricle flow seen distally. Further evaluation with CTA ould be recommended. Ordering Physician: Milli Jackson Performed By: KATINA Blood : Milli Jackson MD Date Dictated: 10/17/13 1439 Date Transcribed: 10/19/13 1118 Procurement Coordinator: Signed 17-Oct-2013 CTA Neck w/wo Contrast Result: Comments: See Note; NOTES: [facility] [address] [place] [address] CAT Scan Report MR#: [id number] Acct: [id number] Name: VIDHYA PALMER Rep #: [id number] : 1940 M 73 From: Cass Flores MD PCP: Milli Jackson MD Status: REG CLI Study: CTA Neck w/wo Contrast Date of Exam: 10/17/13 Exam# [id number] Ordering Dr: Milli Jackson MD STUDY: CTA NECK WITH CONTRAST REASON FOR EXAM: Male, 73 years old. Atherosclerosis left carotid artery, history of diabetes and hypertension. RADIATION DOSAGE (If Supplied By Facility): CTDIvol = ( 82.48 ) mGy, DLP = ( 2022.78 ) mGycm TECHNIQUE: CT angiography with multi-detector data acquisition was performed from the aortic arch to the skull base following intravenous administration of 100 ml of Isovue 300 contrast. MIP images were reconstructed from the axial data set. Post- processing of the angiographic images was performed, with multiplanar reformation and 3D reconstruction. COMPARISON: No previous vascular imaging studies of the neck are available for comparison. Limited comparison is made to brain MRA without contrast 10/17/2013. FINDINGS: AOR TIC ARCH: There is atherosclerotic calcific plaque formation of the aortic arch and great vessels arising from the aortic arch, without a visualized hemodynamically significant stenosis. RIGHT PAZ TID ARTERIES: Normal right common carotid artery. Mild atherosclerotic plaque formation with mild narrowing of the right common carotid bulb. Calcific atheromatous plaque formation involving the or igin of the right internal carotid artery, with cross-sectional luminal diameter stenosis of approximately 50%. Mild tortuosity of the proximal cervical segment of the right internal carotid artery. There is mild atherosclerotic plaque formation of the origin of the right external carotid artery with less than 50% cross sectional diameter stenosis. LEFT CAROTID ARTERIES: Normal left common ca rotid artery, with mild proximal tortuosity. Soft and calcific atheromatous plaque formation involving the left common carotid bulb, origin and proximal cervical segment of the left internal carotid artery, with occlusion of the left internal carotid artery at its origin, with nonvisualization of the majority of the cervical segment of the left internal carotid artery. Small opacified left inter nal carotid arterial lumen involving the left petrous, parasellar and supraclinoid internal carotid arteries, consistent with distal reconstitution, but with severe narrowing. There is mild atheros clerotic plaque formation of the origin of the left external carotid artery with less than 50% cross sectional diameter stenosis. VERTEBRAL ARTERIES: Calcific atheromatous plaque formation involvin g the visualized bilateral vertebral artery origins, with suspected focal hemodynamically significant stenoses. Otherwise patent visualized bilateral vertebral arteries, dominant on the left and hypo plastic on the right. Right distal vertebral artery may terminate in the posterior inferior cerebellar artery, representing developmental normal variant. ADDITIONAL FINDINGS: Advanced multilevel de generative changes of the cervical spine. IMPRESSION: Multifocal calcific atheromatous plaque formation, with evidence of complete occlusion of the left internal carotid artery at its origin, with distal reconstitution of the carotid siphon, where markedly narrowed residual lumen is identified. Mild stenoses involving the origins of the right internal carot id and bilateral external carotid arteries. Potential hemodynamically significant stenoses involving the origins of the bilateral vertebral arteries, noted to be dominant on the left and hypoplasti c on the right. Electronically Signed: Cass Flores M.D. at 18:11 EST , Service support [phone], CC: Milli Jackson MD Procurement Coordinator: Signed 17-Oct-2013 Brain w/wo Contrast Result: Comments: See Note; NOTES: [facility] [address] [place] [address] MRI Report MR#: [id number] Acct: [id number] Name: VIDHYA PALMER Rep #: [id number] : 1940 M 73 From: Cass Flores MD PCP: Milli Jackson MD Status: REG CLI Study: Brain w/wo Contrast Date of Exam: 10/17/13 Exam# [id number] Ordering Dr: Milli Jackson MD STUDY: MRA OF T HE HEAD WITHOUT CONTRAST REASON FOR EXAM: Male, 73 years old. Speech abnormality with sharp pain left orbit. TECHNIQUE: 3-D cmls-vd-wnixyc (TOF) imaging was performed with MIPs. The study was perf ormed unenhanced. COMPARISON: There are no previous intracranial vascular imaging studies for comparison. Correlation is made to MRI brain performed in conjunction with this study (see separate repo rt). FINDINGS: Normal visualized right petrous and parasellar internal carotid artery, with normal right carotid bifurcation. Absence of normal flow related enh ancement within the visualized left petrous and parasellar internal carotid artery, with reconstitution at the carotid terminus. Findings suggest complete carotid occlusion; however, possibility of &a mp;#34;string sign associated with subtotal occlusion could be further assessed with CTA, if clinically warranted. Per telephone discussion with Milli Jackson MD, referring physician, the minda charles apparently has already undergone CTA subsequent to the brain MRA and MRI examinations. Normal bilateral A1 segments of the anterior cerebral arteries, allowing for slightly dampened flow-relat ed enhancement on the left. Normal intact anterior communicating artery (ACOM). Normal bilateral A2 segments of the anterior cerebral arteries. Normal right M1 and M2 segments of the middle cerebral arteries, with a normal M1 bifurcation. Normal left M1 and M2 segments of the middle cerebral arteries, with a normal M1 bifurcation, but with relative paucity of visualized distal branches, with no nvisualization of the left angular artery. There is non-visualization of the right posterior communicating artery (PCOM). Normal left posterior communicating artery (PCOM). Normal visualized bilat eral distal vertebral arteries, dominant on the left and hypoplastic on the right. Normal basilar artery with normal basilar bifurcation. Normal bilateral P1, P2 and visualized P3 segments of the pos terior cerebral arteries. Normal visualized bilateral proximal superior cerebellar arteries. No visualized intracranial aneurysm, within the technical limitations of this modality. Please refer to separately issued brain MRI report of this date for details regarding extravascular intracranial structures. IMPRESSION: Loss of normal flow-related enhancemen t within the visualized left internal carotid artery, most compatible with occlusion. CTA may provide additional information regarding complete versus subtotal occlusion. Nonvisualization of the lef t angular artery, which could represent occlusion. Otherwise normal visualized sycuan of Chambers vasculature. Please refer to separately issued brain MRI report of this date for additional details r egarding intracranial pathology. Findings were discussed by telephone with referring physician Molly Jackson MD 10/17/2013. Electronically Signed: Cass Flores M.D. at 16:26 EST Tel , Service support [phone], CC: Milli Jackson MD Procurement Coordinator: Signed 17-Oct-2013 MRA Head ONLY without Contrast Result: Comments: See Note; NOTES: [facility] [address] [place] [address] MRI Report MR#: [id number] Acct: [id number] Name: VIDHYA PALMER Rep #: [id number] : 1940 M 73 From: Cass Flores MD PCP: Milli Jackson MD Status: REG CLI Study: MRA Head ONLY without Contrast Date of Exam: 10/17/13 Exam# [id number] Ordering Dr: Milli Jackson MD STUD Y: MRI BRAIN WITH AND WITHOUT CONTRAST REASON FOR EXAM: Male, 73 years old. Speech abnormality, sharp pain left eye. TECHNIQUE: Standardized multiplanar fat and water weighted pulse sequences were obtained. 10 ml of Gadavist contrast material was administered intravenously for the contrast portion of the examination. COMPARISON: None. FINDINGS: The vent ricles are normal in size for the patient's age, with mild/moderate widening of the cerebral sulci compatible with cortical volume loss. No localized extra- axial fluid collection. There are multiple punctate and patchy confluent foci of FLAIR and T2 signal hyperintensity in the bihemispheric white matter, compatible with moderate chronic microvascular ischemic disease in an individual of this a ge. There is what appears represent a small remote infarct involving the right frontoparietal junction cortex, with localized encephalomalacia and gliosis. There are regions of gyral FLAIR and T2 sign al hyperintensity involving the left frontal and parietal cortex, with minimal involvement of the adjacent left superior temporal gyrus, with associated gyral T1 signal hyperintensity suggesting suba cute petechial hemorrhage or evolving cortical laminar process. These regions demonstrate mild signal hyperintensity on the diffusion-weighted sequence, particularly in the left frontal lobe, were adele th linear and punctate diffusion signal hyperintensity is noted, but without demonstrated diffusion restriction on the exponential apparent diffusion coefficient sequence or ADC map. Findings most lik chula represent subacute infarctions with pseudonormalization on the ADC map, versus less likely other etiologies such as hemorrhagic encephalitis, with clinical correlation recommend ed, and continued followup as clinically warranted. Normal bilateral basal ganglia and thalami. There is absence of normal flow void in the visualized left internal carotid artery, most likely repre senting carotid occlusion versus markedly altered flow dynamics/critical stenosis. Normal visualized remaining major intracranial vascular flow voids, with dominant left and hypoplastic right visuali zed distal vertebral arteries, with mild tortuosity of the vertebrobasilar system. Normal visualized venous enhancement, with no demonstrated enhancing intracranial abnormality, allowing for suspected minimal enhancement of presumed subacute infarctions involving the right cerebral hemisphere, as described above. Normal appearance of the pituitary gland, infundibulum, optic chiasm and hypothala stephani region, within the constraints of a routine brain study. Normal tectal plate and pineal gland. Normal midbrain, noam and medulla, allowing for mild flattening of the left medullary contour by do minant and tortuous left vertebral artery. Normal cerebellum. Normal basal cisterns. Normal bilateral temporal bones. Normal visualized bilateral internal auditory canal structures, given routine bra in imaging. Bilateral ocular lens implants, with no additional demonstrated orbital abnormality, within the constraints of a routine brain study. There is mucoperiosteal inflammatory disease of the paranasal sinuses consistent with mild chronic sinusitis. Normal visualized extracranial soft tissue structures. Normal appearance of the calvarium and visualized osseous skull base structures. 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 Please see details above. The patient also apparently underwent brain MRA 10/17/2013; please see separately issued report for details. Degenerative changes involving the visualized upper cervical spine with mild cord compression noted at C3-4. N.B. : The above information has been verbally conveyed by Cass Flores M.D. to Milli Jackson MD, Referring Physician, on 10/17/2013 16:15:56 (ET). Electronically Signed: Cass Flores M.D. at 16:04 EST Tel , Service support [phone], N.B. : The above information has been verbally conveyed by Cass Flores M.D. to Milli Jackson MD, Referring Physician, on 10/17/2013 16:15:56 (ET). CC: Milli Jackson MD Procurement Coordinator: Signed Immunization Name Dates Details Zoster (shingles) Comments: delfin wilcox 11-14 Family History Unknown Family Member Name Dates Details Brother 1 Comments: ETOH, Blood disorder, Cancer, HBP, Ulcer disease Status: Active Father Comments: ETOH, Seizures/stroke Status: Active Mother Comments: Heart/Lung disease Status: Active Sister 1 Comments: Cancer, DM, HBP, Ovarian disease, ulcer disease Status: Active Social History Name Dates Details Caffeine Use Comments: 3 tea QD Status: Active Current Work/Study Status Comments: Retired Status: Active Exercise History Comments: None Status: Active Living Situation Comments: , heterosexual Status: Active Non Drinker/No Alcohol Use Status: Active Non Smoker/No Tobacco Use Status: Active Tobacco use: Never smoker. Status: Active Smoking Status Name Dates Details Never smoker Vital Signs Date Test Result Details :24 Temperature 97 f Comments: Method: Temporal Pulse 74 /min Comments: Pattern: Regular Respiration Rate 18 /min Comments: Pattern: Unlabored O2 SAT 99 % Comments: Room air BP Systolic 132 mm[Hg] Comments: Patient Position: Sitting; Cuff Location: Left Arm; Cuff Size: Standard BP Diastolic 74 mm[Hg] Comments: Patient Position: Sitting; Cuff Location: Left Arm; Cuff Size: Standard Weight 223 lb Height 64 in Body Mass Index Calculated 38.28 kg/m2 Body Surface Area Calculated 2.05 m2 :32 Pulse 73 /min Comments: Pattern: Regular Respiration Rate 18 /min Comments: Pattern: Unlabored O2 SAT 98 % Comments: Room air BP Systolic 132 mm[Hg] Comments: Patient Position: Sitting; Cuff Location: Left Arm; Cuff Size: Large BP Diastolic 70 mm[Hg] Comments: Patient Position: Sitting; Cuff Location: Left Arm; Cuff Size: Large Weight 226.375 lb Height 64 in Body Mass Index Calculated 38.86 kg/m2 Body Surface Area Calculated 2.06 m2 :10 Temperature 97.4 f Pulse 86 /min Comments: Pattern: Regular Respiration Rate 18 /min Comments: Pattern: Unlabored O2 SAT 98 % Comments: Room air BP Systolic 130 mm[Hg] Comments: Patient Position: Sitting; Cuff Location: Left Arm; Cuff Size: Standard BP Diastolic 78 mm[Hg] Comments: Patient Position: Sitting; Cuff Location: Left Arm; Cuff Size: Standard Weight 224.5 lb Height 64 in Body Mass Index Calculated 38.53 kg/m2 Body Surface Area Calculated 2.05 m2 :45 Temperature 97.5 f Pulse 71 /min Comments: Pattern: Regular Respiration Rate 16 /min Comments: Pattern: Unlabored O2 SAT 98 % Comments: Room air BP Systolic 138 mm[Hg] Comments: Patient Position: Sitting; Cuff Location: Left Arm; Cuff Size: Standard BP Diastolic 84 mm[Hg] Comments: Patient Position: Sitting; Cuff Location: Left Arm; Cuff Size: Standard Weight 229 lb Height 64 in Body Mass Index Calculated 39.31 kg/m2 Body Surface Area Calculated 2.07 m2 :03 Pulse 65 /min Comments: Pattern: Regular Respiration Rate 16 /min Comments: Pattern: Unlabored O2 SAT 98 % Comments: Room air BP Systolic 132 mm[Hg] Comments: Patient Position: Sitting; Cuff Location: Left Arm; Cuff Size: Standard BP Diastolic 70 mm[Hg] Comments: Patient Position: Sitting; Cuff Location: Left Arm; Cuff Size: Standard Weight 236 lb Height 64 in Body Mass Index Calculated 40.51 kg/m2 Body Surface Area Calculated 2.1 m2 :59 Temperature 97.2 f Pulse 67 /min Comments: Pattern: Regular Respiration Rate 17 /min Comments: Pattern: Unlabored O2 SAT 96 % Comments: Room air BP Systolic 142 mm[Hg] Comments: Patient Position: Sitting; Cuff Location: Left Arm; Cuff Size: Standard BP Diastolic 82 mm[Hg] Comments: Patient Position: Sitting; Cuff Location: Left Arm; Cuff Size: Standard Weight 236 lb Height 64 in Body Mass Index Calculated 40.51 kg/m2 Body Surface Area Calculated 2.1 m2 :38 Temperature 97.4 f Pulse 69 /min Comments: Pattern: Regular Respiration Rate 17 /min Comments: Pattern: Unlabored O2 SAT 98 % Comments: Room air BP Systolic 142 mm[Hg] Comments: Patient Position: Sitting; Cuff Location: Left Arm; Cuff Size: Standard BP Diastolic 80 mm[Hg] Comments: Patient Position: Sitting; Cuff Location: Left Arm; Cuff Size: Standard Weight 233 lb Height 64 in Body Mass Index Calculated 39.99 kg/m2 Body Surface Area Calculated 2.09 m2 :13 Temperature 97 f Comments: Method: Temporal Pulse 65 /min Comments: Pattern: Regular Respiration Rate 18 /min Comments: Pattern: Unlabored O2 SAT 99 % Comments: Room air BP Systolic 138 mm[Hg] Comments: Patient Position: Sitting; Cuff Location: Left Arm; Cuff Size: Large BP Diastolic 82 mm[Hg] Comments: Patient Position: Sitting; Cuff Location: Left Arm; Cuff Size: Large Weight 232.5 lb Height 64 in Body Mass Index Calculated 39.91 kg/m2 Body Surface Area Calculated 2.09 m2 :05 Temperature 96.8 f Comments: Method: Temporal Pulse 72 /min Comments: Pattern: Regular Respiration Rate 18 /min Comments: Pattern: Unlabored O2 SAT 97 % Comments: Room air BP Systolic 118 mm[Hg] Comments: Patient Position: Sitting; Cuff Location: Left Arm; Cuff Size: Large BP Diastolic 76 mm[Hg] Comments: Patient Position: Sitting; Cuff Location: Left Arm; Cuff Size: Large Weight 231.25 lb Height 64 in Body Mass Index Calculated 39.69 kg/m2 Body Surface Area Calculated 2.08 m2 :52 Temperature 98 f Comments: Method: Oral Pulse 57 /min Comments: Pattern: Regular Respiration Rate 16 /min Comments: Pattern: Unlabored O2 SAT 98 % Comments: Room air BP Systolic 118 mm[Hg] Comments: Patient Position: Sitting; Cuff Location: Left Arm; Cuff Size: Standard BP Diastolic 76 mm[Hg] Comments: Patient Position: Sitting; Cuff Location: Left Arm; Cuff Size: Standard Weight 231 lb Height 64 in Body Mass Index Calculated 39.65 kg/m2 Body Surface Area Calculated 2.08 m2 :25 Pulse 82 /min Comments: Pattern: Regular Respiration Rate 18 /min Comments: Pattern: Unlabored O2 SAT 93 % Comments: Room air BP Systolic 122 mm[Hg] Comments: Patient Position: Sitting; Cuff Location: Left Arm; Cuff Size: Large BP Diastolic 80 mm[Hg] Comments: Patient Position: Sitting; Cuff Location: Left Arm; Cuff Size: Large Weight 233.5 lb Height 66 in Body Mass Index Calculated 37.69 kg/m2 Body Surface Area Calculated 2.14 m2 :03 Pulse 69 /min Comments: Pattern: Regular Respiration Rate 18 /min Comments: Pattern: Unlabored O2 SAT 98 % Comments: Room air BP Systolic 138 mm[Hg] Comments: Patient Position: Sitting; Cuff Location: Left Arm; Cuff Size: Large BP Diastolic 78 mm[Hg] Comments: Patient Position: Sitting; Cuff Location: Left Arm; Cuff Size: Large Weight 237.25 lb Height 66 in Body Mass Index Calculated 38.29 kg/m2 Body Surface Area Calculated 2.15 m2 :33 Temperature 98.1 f Pulse 62 /min Comments: Pattern: Regular Respiration Rate 18 /min Comments: Pattern: Unlabored O2 SAT 96 % Comments: Room air BP Systolic 174 mm[Hg] Comments: Patient Position: Sitting; Cuff Location: Left Arm; Cuff Size: Standard BP Diastolic 84 mm[Hg] Comments: Patient Position: Sitting; Cuff Location: Left Arm; Cuff Size: Standard Weight 242 lb Height 66 in Body Mass Index Calculated 39.06 kg/m2 Body Surface Area Calculated 2.17 m2 :53 Temperature 97.3 f Comments: Method: Temporal Pulse 50 /min Comments: Pattern: Regular Respiration Rate 16 /min Comments: Pattern: Unlabored BP Systolic 130 mm[Hg] Comments: Patient Position: Sitting; Cuff Location: Left Arm; Cuff Size: Standard BP Diastolic 70 mm[Hg] Comments: Patient Position: Sitting; Cuff Location: Left Arm; Cuff Size: Standard Weight 236 lb Height 66 in Body Mass Index Calculated 38.09 kg/m2 Body Surface Area Calculated 2.15 m2 :03 Temperature 97.6 f Comments: Method: Temporal Pulse 48 /min Comments: Pattern: Regular Respiration Rate 20 /min Comments: Pattern: Unlabored O2 SAT 97 % Comments: Room air BP Systolic 120 mm[Hg] Comments: Patient Position: Sitting; Cuff Location: Left Arm; Cuff Size: Large BP Diastolic 70 mm[Hg] Comments: Patient Position: Sitting; Cuff Location: Left Arm; Cuff Size: Large Weight 237 lb Height 66 in Body Mass Index Calculated 38.25 kg/m2 Body Surface Area Calculated 2.15 m2 :12 Temperature 97.9 f Comments: Method: Oral Pulse 62 /min Comments: Pattern: Regular Respiration Rate 16 /min Comments: Pattern: Unlabored O2 SAT 98 % Comments: Room air BP Systolic 142 mm[Hg] Comments: Patient Position: Sitting; Cuff Location: Left Arm; Cuff Size: Standard BP Diastolic 70 mm[Hg] Comments: Patient Position: Sitting; Cuff Location: Left Arm; Cuff Size: Standard Weight 229.5 lb Height 66 in Body Mass Index Calculated 37.04 kg/m2 Body Surface Area Calculated 2.12 m2 :58 Temperature 97.8 f Pulse 70 /min Comments: Pattern: Regular Respiration Rate 18 /min Comments: Pattern: Unlabored O2 SAT 97 % Comments: Room air BP Systolic 142 mm[Hg] Comments: Patient Position: Sitting; Cuff Location: Left Arm; Cuff Size: Standard BP Diastolic 82 mm[Hg] Comments: Patient Position: Sitting; Cuff Location: Left Arm; Cuff Size: Standard Weight 225.5 lb Height 66 in Body Mass Index Calculated 36.4 kg/m2 Body Surface Area Calculated 2.1 m2 :31 Temperature 97.6 f Comments: Method: Temporal Pulse 60 /min Comments: Pattern: Regular Respiration Rate 24 /min Comments: Pattern: Unlabored O2 SAT 98 % Comments: Room air BP Systolic 116 mm[Hg] Comments: Patient Position: Sitting; Cuff Location: Left Arm; Cuff Size: Standard BP Diastolic 76 mm[Hg] Comments: Patient Position: Sitting; Cuff Location: Left Arm; Cuff Size: Standard Weight 231 lb Height 66 in Body Mass Index Calculated 37.28 kg/m2 Body Surface Area Calculated 2.13 m2 :09 Temperature 98.2 f Comments: Method: Temporal Pulse 54 /min Comments: Pattern: Regular Respiration Rate 16 /min Comments: Pattern: Unlabored O2 SAT 97 % Comments: Room air BP Systolic 120 mm[Hg] Comments: Patient Position: Sitting; Cuff Location: Left Arm; Cuff Size: Standard BP Diastolic 80 mm[Hg] Comments: Patient Position: Sitting; Cuff Location: Left Arm; Cuff Size: Standard Weight 232.6 lb Height 66 in Body Mass Index Calculated 37.54 kg/m2 Body Surface Area Calculated 2.13 m2 :48 Temperature 98.2 f Comments: Method: Temporal Pulse 72 /min Comments: Pattern: Regular Respiration Rate 16 /min Comments: Pattern: Unlabored O2 SAT 98 % Comments: Room air BP Systolic 122 mm[Hg] Comments: Patient Position: Sitting; Cuff Location: Left Arm; Cuff Size: Standard BP Diastolic 74 mm[Hg] Comments: Patient Position: Sitting; Cuff Location: Left Arm; Cuff Size: Standard Weight 241 lb Height 66 in Body Mass Index Calculated 38.9 kg/m2 Body Surface Area Calculated 2.17 m2 :25 Pulse 59 /min Comments: Pattern: Regular Respiration Rate 16 /min Comments: Pattern: Unlabored O2 SAT 98 % Comments: Room air BP Systolic 130 mm[Hg] Comments: Patient Position: Sitting; Cuff Location: Left Arm; Cuff Size: Standard BP Diastolic 68 mm[Hg] Comments: Patient Position: Sitting; Cuff Location: Left Arm; Cuff Size: Standard Weight 246 lb Height 66 in Body Mass Index Calculated 39.71 kg/m2 Body Surface Area Calculated 2.18 m2 :14 Temperature 97.6 f Comments: Method: Oral Pulse 68 /min Comments: Pattern: Regular Respiration Rate 24 /min Comments: Pattern: Unlabored BP Systolic 140 mm[Hg] Comments: Patient Position: Sitting; Cuff Location: Left Arm; Cuff Size: Large BP Diastolic 80 mm[Hg] Comments: Patient Position: Sitting; Cuff Location: Left Arm; Cuff Size: Large Weight 246 lb Height 66 in Body Mass Index Calculated 39.71 kg/m2 Body Surface Area Calculated 2.18 m2 :17 Temperature 97.6 f Comments: Method: Oral Pulse 64 /min Comments: Pattern: Regular Respiration Rate 20 /min Comments: Pattern: Unlabored BP Systolic 110 mm[Hg] Comments: Patient Position: Sitting; Cuff Location: Left Arm; Cuff Size: Standard BP Diastolic 68 mm[Hg] Comments: Patient Position: Sitting; Cuff Location: Left Arm; Cuff Size: Standard Weight 242 lb Height 66 in Body Mass Index Calculated 39.06 kg/m2 Body Surface Area Calculated 2.17 m2 :06 Temperature 98.4 f Comments: Method: Oral Pulse 56 /min Comments: Pattern: Regular Respiration Rate 18 /min O2 SAT 98 % Comments: Room air BP Systolic 116 mm[Hg] Comments: Patient Position: Sitting; Cuff Location: Left Arm; Cuff Size: Standard BP Diastolic 72 mm[Hg] Comments: Patient Position: Sitting; Cuff Location: Left Arm; Cuff Size: Standard Weight 236.5625 lb :43 Temperature 97.9 f Comments: Method: Oral Pulse 60 /min Comments: Pattern: Regular Respiration Rate 20 /min Comments: Pattern: Unlabored BP Systolic 134 mm[Hg] Comments: Patient Position: Sitting; Cuff Location: Left Arm; Cuff Size: Standard BP Diastolic 80 mm[Hg] Comments: Patient Position: Sitting; Cuff Location: Left Arm; Cuff Size: Standard Weight 242 lb Height 66 in Body Mass Index Calculated 39.06 kg/m2 Body Surface Area Calculated 2.17 m2 :11 Weight 242 lb Height 66 in Body Mass Index Calculated 39.06 kg/m2 Body Surface Area Calculated 2.17 m2 :12 Temperature 97.8 f Comments: Method: Oral Pulse 58 /min Comments: Pattern: Regular Respiration Rate 18 /min Comments: Pattern: Unlabored BP Systolic 118 mm[Hg] Comments: Patient Position: Sitting; Cuff Location: Left Arm; Cuff Size: Standard BP Diastolic 80 mm[Hg] Comments: Patient Position: Sitting; Cuff Location: Left Arm; Cuff Size: Standard Weight 242 lb Height 66 in Body Mass Index Calculated 39.06 kg/m2 Body Surface Area Calculated 2.17 m2 [id number] Temperature 97.9 f Comments: Method: Oral Pulse 48 /min Comments: Pattern: Irregular Respiration Rate 20 /min Comments: Pattern: Unlabored BP Systolic 136 mm[Hg] Comments: Patient Position: Sitting; Cuff Location: Left Arm; Cuff Size: Standard BP Diastolic 84 mm[Hg] Comments: Patient Position: Sitting; Cuff Location: Left Arm; Cuff Size: Standard Weight 237 lb Height 66 in Body Mass Index Calculated 38.25 kg/m2 Body Surface Area Calculated 2.15 m2 :18 Temperature 97.8 f Comments: Method: Temporal Pulse 76 /min Comments: Pattern: Regular Respiration Rate 16 /min Comments: Pattern: Unlabored O2 SAT 98 % Comments: Room air BP Systolic 126 mm[Hg] Comments: Patient Position: Sitting; Cuff Location: Left Arm; Cuff Size: Standard BP Diastolic 78 mm[Hg] Comments: Patient Position: Sitting; Cuff Location: Left Arm; Cuff Size: Standard Weight 236 lb Height 66 in Body Mass Index Calculated 38.09 kg/m2 Body Surface Area Calculated 2.15 m2 :33 Temperature 98.4 f Comments: Method: Tympanic Pulse 5616 /min Comments: Pattern: Regular Respiration Rate 16 /min Comments: Pattern: Unlabored O2 SAT 98 % Comments: Room air BP Systolic 130 mm[Hg] Comments: Patient Position: Sitting; Cuff Location: Left Arm; Cuff Size: Standard BP Diastolic 80 mm[Hg] Comments: Patient Position: Sitting; Cuff Location: Left Arm; Cuff Size: Standard Weight 236 lb Height 66 in Body Mass Index Calculated 38.09 kg/m2 Body Surface Area Calculated 2.15 m2 :27 Temperature 56 f Comments: Method: Tympanic Pulse 56 /min Comments: Pattern: Regular Respiration Rate 16 /min Comments: Pattern: Unlabored BP Systolic 130 mm[Hg] Comments: Patient Position: Sitting; Cuff Location: Left Arm; Cuff Size: Standard BP Diastolic 80 mm[Hg] Comments: Patient Position: Sitting; Cuff Location: Left Arm; Cuff Size: Standard Weight 236 lb Height 66 in Body Mass Index Calculated 38.09 kg/m2 Body Surface Area Calculated 2.15 m2 :10 Pulse 60 /min Comments: Pattern: Regular Respiration Rate 16 /min Comments: Pattern: Wheezing BP Systolic 124 mm[Hg] Comments: Patient Position: Sitting; Cuff Location: Left Arm; Cuff Size: Standard BP Diastolic 82 mm[Hg] Comments: Patient Position: Sitting; Cuff Location: Left Arm; Cuff Size: Standard Weight 241 lb Height 66 in Body Mass Index Calculated 38.9 kg/m2 Body Surface Area Calculated 2.17 m2 :06 Temperature 97.6 f Comments: Method: Oral Pulse 68 /min Comments: Pattern: Regular Respiration Rate 18 /min Comments: Pattern: Unlabored BP Systolic 112 mm[Hg] Comments: Patient Position: Sitting; Cuff Location: Left Arm; Cuff Size: Standard BP Diastolic 70 mm[Hg] Comments: Patient Position: Sitting; Cuff Location: Left Arm; Cuff Size: Standard Weight 241 lb Height 66 in Body Mass Index Calculated 38.9 kg/m2 Body Surface Area Calculated 2.17 m2 :52 Temperature 97.9 f Comments: Method: Oral Pulse 70 /min Comments: Pattern: Regular Respiration Rate 20 /min Comments: Pattern: Unlabored BP Systolic 114 mm[Hg] Comments: Patient Position: Sitting; Cuff Location: Left Arm; Cuff Size: Standard BP Diastolic 74 mm[Hg] Comments: Patient Position: Sitting; Cuff Location: Left Arm; Cuff Size: Standard Weight 246 lb Height 66 in Body Mass Index Calculated 39.71 kg/m2 Body Surface Area Calculated 2.18 m2 :23 Temperature 98.2 f Comments: Method: Oral Pulse 68 /min Comments: Pattern: Regular Respiration Rate 24 /min Comments: Pattern: Unlabored BP Systolic 118 mm[Hg] Comments: Patient Position: Sitting; Cuff Location: Left Arm; Cuff Size: Standard BP Diastolic 76 mm[Hg] Comments: Patient Position: Sitting; Cuff Location: Left Arm; Cuff Size: Standard Weight 243 lb Height 66 in Body Mass Index Calculated 39.22 kg/m2 Body Surface Area Calculated 2.17 m2 :55 Temperature 97.8 f Comments: Method: Oral Pulse 68 /min Comments: Pattern: Irregular Respiration Rate 20 /min Comments: Pattern: Unlabored BP Systolic 110 mm[Hg] Comments: Patient Position: Sitting; Cuff Location: Left Arm; Cuff Size: Standard BP Diastolic 78 mm[Hg] Comments: Patient Position: Sitting; Cuff Location: Left Arm; Cuff Size: Standard Weight 247 lb Height 66 in Body Mass Index Calculated 39.87 kg/m2 Body Surface Area Calculated 2.19 m2 :24 Temperature 97.9 f Comments: Method: Oral Pulse 64 /min Comments: Pattern: Irregular Respiration Rate 20 /min Comments: Pattern: Unlabored BP Systolic 130 mm[Hg] Comments: Patient Position: Sitting; Cuff Location: Left Arm; Cuff Size: Large BP Diastolic 82 mm[Hg] Comments: Patient Position: Sitting; Cuff Location: Left Arm; Cuff Size: Large Weight 248 lb Height 66 in Body Mass Index Calculated 40.03 kg/m2 Body Surface Area Calculated 2.19 m2 :39 Temperature 98.1 f Comments: Method: Oral Pulse 68 /min Comments: Pattern: Irregular Respiration Rate 20 /min Comments: Pattern: Unlabored BP Systolic 140 mm[Hg] Comments: Patient Position: Sitting; Cuff Location: Left Arm; Cuff Size: Large BP Diastolic 92 mm[Hg] Comments: Patient Position: Sitting; Cuff Location: Left Arm; Cuff Size: Large Weight 248 lb Height 66 in Body Mass Index Calculated 40.03 kg/m2 Body Surface Area Calculated 2.19 m2 :39 Temperature 98.1 f Comments: Method: Oral Pulse 56 /min Comments: Pattern: Irregular Respiration Rate 20 /min Comments: Pattern: Unlabored BP Systolic 140 mm[Hg] Comments: Patient Position: Sitting; Cuff Location: Left Arm; Cuff Size: Large BP Diastolic 78 mm[Hg] Comments: Patient Position: Sitting; Cuff Location: Left Arm; Cuff Size: Large Weight 249 lb Height 66 in Body Mass Index Calculated 40.19 kg/m2 Body Surface Area Calculated 2.2 m2 :33 Temperature 97.9 f Comments: Method: Oral Pulse 68 /min Comments: Pattern: Regular Respiration Rate 20 /min Comments: Pattern: Unlabored BP Systolic 120 mm[Hg] Comments: Patient Position: Sitting; Cuff Location: Left Arm; Cuff Size: Standard BP Diastolic 78 mm[Hg] Comments: Patient Position: Sitting; Cuff Location: Left Arm; Cuff Size: Standard Weight 255 lb Height 66 in Body Mass Index Calculated 41.16 kg/m2 Body Surface Area Calculated 2.22 m2 :55 Temperature 97.6 f Comments: Method: Oral Pulse 64 /min Comments: Pattern: Regular Respiration Rate 20 /min Comments: Pattern: Unlabored BP Systolic 118 mm[Hg] Comments: Patient Position: Sitting; Cuff Location: Left Arm; Cuff Size: Standard BP Diastolic 78 mm[Hg] Comments: Patient Position: Sitting; Cuff Location: Left Arm; Cuff Size: Standard Weight 251 lb Height 66 in Body Mass Index Calculated 40.51 kg/m2 Body Surface Area Calculated 2.2 m2 :58 Temperature 97.6 f Comments: Method: Oral Pulse 68 /min Comments: Pattern: Regular Respiration Rate 20 /min Comments: Pattern: Unlabored BP Systolic 140 mm[Hg] Comments: Patient Position: Sitting; Cuff Location: Left Arm; Cuff Size: Standard BP Diastolic 90 mm[Hg] Comments: Patient Position: Sitting; Cuff Location: Left Arm; Cuff Size: Standard Weight 253 lb Height 66 in Body Mass Index Calculated 40.83 kg/m2 Body Surface Area Calculated 2.21 m2 :15 Temperature 97.6 f Comments: Method: Oral Pulse 70 /min Comments: Pattern: Regular Respiration Rate 20 /min Comments: Pattern: Unlabored BP Systolic 120 mm[Hg] Comments: Patient Position: Sitting; Cuff Location: Left Arm; Cuff Size: Standard BP Diastolic 78 mm[Hg] Comments: Patient Position: Sitting; Cuff Location: Left Arm; Cuff Size: Standard Weight 259 lb :04 Temperature 97.9 f Comments: Method: Oral Pulse 64 /min Comments: Pattern: Regular Respiration Rate 22 /min Comments: Pattern: Unlabored BP Systolic 116 mm[Hg] Comments: Patient Position: Sitting; Cuff Location: Left Arm; Cuff Size: Standard BP Diastolic 76 mm[Hg] Comments: Patient Position: Sitting; Cuff Location: Left Arm; Cuff Size: Standard Weight 253 lb :04 Temperature 98.7 f Comments: Method: Oral Pulse 56 /min Comments: Pattern: Regular Respiration Rate 20 /min Comments: Pattern: Unlabored O2 SAT 94 % Comments: Room air BP Systolic 112 mm[Hg] Comments: Patient Position: Sitting; Cuff Location: Left Arm; Cuff Size: Standard BP Diastolic 74 mm[Hg] Comments: Patient Position: Sitting; Cuff Location: Left Arm; Cuff Size: Standard Weight 251 lb :06 Temperature 97.6 f Comments: Method: Oral Pulse 70 /min Comments: Pattern: Regular Respiration Rate 20 /min Comments: Pattern: Unlabored BP Systolic 118 mm[Hg] Comments: Patient Position: Sitting; Cuff Location: Left Arm; Cuff Size: Standard BP Diastolic 76 mm[Hg] Comments: Patient Position: Sitting; Cuff Location: Left Arm; Cuff Size: Standard Weight 251 lb :17 Pulse 68 /min Comments: Pattern: Regular Respiration Rate 18 /min Comments: Pattern: Unlabored BP Systolic 120 mm[Hg] Comments: Patient Position: Sitting; Cuff Location: Left Arm; Cuff Size: Standard BP Diastolic 80 mm[Hg] Comments: Patient Position: Sitting; Cuff Location: Left Arm; Cuff Size: Standard Weight 254 lb :19 Temperature 96.8 f Comments: Method: Oral Pulse 74 /min Comments: Pattern: Regular Respiration Rate 16 /min Comments: Pattern: Unlabored BP Systolic 120 mm[Hg] Comments: Patient Position: Sitting; Cuff Location: Left Arm; Cuff Size: Standard BP Diastolic 76 mm[Hg] Comments: Patient Position: Sitting; Cuff Location: Left Arm; Cuff Size: Standard Weight 252.375 lb :40 Pulse 70 /min Comments: Pattern: Regular Respiration Rate 16 /min Comments: Pattern: Unlabored BP Systolic 120 mm[Hg] Comments: Patient Position: Sitting; Cuff Location: Left Arm; Cuff Size: Standard BP Diastolic 78 mm[Hg] Comments: Patient Position: Sitting; Cuff Location: Left Arm; Cuff Size: Standard Weight 248 lb Height 0 in Head Circumference 0.00 cm :59 Pulse 70 /min Comments: Pattern: Regular Respiration Rate 18 /min Comments: Pattern: Unlabored BP Systolic 124 mm[Hg] Comments: Patient Position: Sitting; Cuff Location: Left Arm; Cuff Size: Large BP Diastolic 84 mm[Hg] Comments: Patient Position: Sitting; Cuff Location: Left Arm; Cuff Size: Large Weight 243 lb Height 0 in Head Circumference 0.00 cm :34 Temperature 97.6 f Comments: Method: Oral Pulse 73 /min Comments: Pattern: Regular Respiration Rate 18 /min Comments: Pattern: Unlabored BP Systolic 122 mm[Hg] Comments: Patient Position: Sitting; Cuff Location: Left Arm; Cuff Size: Large BP Diastolic 82 mm[Hg] Comments: Patient Position: Sitting; Cuff Location: Left Arm; Cuff Size: Large Weight 247.3125 lb Height 0 in Head Circumference 0.00 cm :39 Pulse 74 /min Comments: Pattern: Regular Respiration Rate 18 /min Comments: Pattern: Unlabored BP Systolic 122 mm[Hg] Comments: Patient Position: Sitting; Cuff Location: Left Arm; Cuff Size: Large BP Diastolic 80 mm[Hg] Comments: Patient Position: Sitting; Cuff Location: Left Arm; Cuff Size: Large Weight 244.05 lb Height 0 in Head Circumference 0.00 cm :41 Pulse 76 /min Comments: Pattern: Regular Respiration Rate 16 /min Comments: Pattern: Unlabored BP Systolic 132 mm[Hg] Comments: Patient Position: Sitting; Cuff Location: Left Arm; Cuff Size: Standard BP Diastolic 72 mm[Hg] Comments: Patient Position: Sitting; Cuff Location: Left Arm; Cuff Size: Standard Weight 246.0437 lb Height 0 in Head Circumference 0.00 cm :31 Temperature 98.2 f Comments: Method: Oral Pulse 74 /min Comments: Pattern: Regular Respiration Rate 16 /min Comments: Pattern: Unlabored BP Systolic 128 mm[Hg] Comments: Patient Position: Sitting; Cuff Location: Left Arm; Cuff Size: Large BP Diastolic 82 mm[Hg] Comments: Patient Position: Sitting; Cuff Location: Left Arm; Cuff Size: Large Weight 239 lb Height 0 in Head Circumference 0.00 cm :34 Temperature 98.2 f Comments: Method: Oral Pulse 70 /min Comments: Pattern: Regular Respiration Rate 16 /min Comments: Pattern: Unlabored BP Systolic 120 mm[Hg] Comments: Patient Position: Sitting; Cuff Location: Left Arm; Cuff Size: Standard BP Diastolic 78 mm[Hg] Comments: Patient Position: Sitting; Cuff Location: Left Arm; Cuff Size: Standard Weight 240.0375 lb Height 0 in Head Circumference 0.00 cm :05 Temperature 97.8 f Comments: Method: Oral Pulse 72 /min Comments: Pattern: Regular Respiration Rate 18 /min Comments: Pattern: Unlabored BP Systolic 124 mm[Hg] Comments: Patient Position: Sitting; Cuff Location: Left Arm; Cuff Size: Standard BP Diastolic 78 mm[Hg] Comments: Patient Position: Sitting; Cuff Location: Left Arm; Cuff Size: Standard Weight 0 lb Height 0 in Head Circumference 0.00 cm :01 Temperature 97.8 f Comments: Method: Oral Pulse 72 /min Comments: Pattern: Regular Respiration Rate 16 /min Comments: Pattern: Unlabored BP Systolic 122 mm[Hg] Comments: Patient Position: Sitting; Cuff Location: Left Arm; Cuff Size: Standard BP Diastolic 80 mm[Hg] Comments: Patient Position: Sitting; Cuff Location: Left Arm; Cuff Size: Standard Weight 0 lb Height 0 in Head Circumference 0.00 cm :31 Temperature 98.2 f Comments: Method: Oral Pulse 72 /min Comments: Pattern: Regular Respiration Rate 20 /min Comments: Pattern: Unlabored BP Systolic 124 mm[Hg] Comments: Patient Position: Sitting; Cuff Location: Left Arm; Cuff Size: Standard BP Diastolic 82 mm[Hg] Comments: Patient Position: Sitting; Cuff Location: Left Arm; Cuff Size: Standard Weight 0 lb Height 0 in Head Circumference 0.00 cm :23 Pulse 66 /min Comments: Pattern: Regular Respiration Rate 60 /min Comments: Pattern: Unlabored BP Systolic 154 mm[Hg] Comments: Patient Position: Sitting; Cuff Location: Left Arm; Cuff Size: Standard BP Diastolic 84 mm[Hg] Comments: Patient Position: Sitting; Cuff Location: Left Arm; Cuff Size: Standard Weight 239 lb Height 0 in Head Circumference 0.00 cm :46 Temperature 98.4 f Comments: Method: Oral Pulse 74 /min Comments: Pattern: Regular Respiration Rate 18 /min Comments: Pattern: Unlabored BP Systolic 124 mm[Hg] Comments: Patient Position: Sitting; Cuff Location: Left Arm; Cuff Size: Standard BP Diastolic 82 mm[Hg] Comments: Patient Position: Sitting; Cuff Location: Left Arm; Cuff Size: Standard Weight 239 lb Height 0 in Head Circumference 0.00 cm :04 Temperature 98.4 f Comments: Method: Oral Pulse 72 /min Comments: Pattern: Regular Respiration Rate 18 /min Comments: Pattern: Unlabored BP Systolic 120 mm[Hg] Comments: Patient Position: Sitting; Cuff Location: Left Arm; Cuff Size: Standard BP Diastolic 80 mm[Hg] Comments: Patient Position: Sitting; Cuff Location: Left Arm; Cuff Size: Standard Weight 240 lb Height 0 in Head Circumference 0.00 cm :27 Temperature 98.6 f Comments: Method: Oral Pulse 70 /min Comments: Pattern: Regular Respiration Rate 20 /min Comments: Pattern: Unlabored BP Systolic 120 mm[Hg] Comments: Patient Position: Sitting; Cuff Location: Left Arm; Cuff Size: Standard BP Diastolic 78 mm[Hg] Comments: Patient Position: Sitting; Cuff Location: Left Arm; Cuff Size: Standard Weight 230 lb Height 0 in Head Circumference 0.00 cm :51 Temperature 97.8 f Comments: Method: Oral Pulse 68 /min Comments: Pattern: Regular Respiration Rate 16 /min Comments: Pattern: Unlabored BP Systolic 124 mm[Hg] Comments: Patient Position: Sitting; Cuff Location: Left Arm; Cuff Size: Standard BP Diastolic 78 mm[Hg] Comments: Patient Position: Sitting; Cuff Location: Left Arm; Cuff Size: Standard Weight 239 lb Height 0 in Head Circumference 0.00 cm :13 Temperature 97.7 f Comments: Method: Oral Pulse 74 /min Comments: Pattern: Regular Respiration Rate 20 /min Comments: Pattern: Unlabored BP Systolic 122 mm[Hg] Comments: Patient Position: Sitting; Cuff Location: Left Arm; Cuff Size: Standard BP Diastolic 78 mm[Hg] Comments: Patient Position: Sitting; Cuff Location: Left Arm; Cuff Size: Standard Weight 263 lb Height 0 in Head Circumference 0.00 cm :29 Temperature 97.6 f Comments: Method: Oral Pulse 72 /min Comments: Pattern: Regular Respiration Rate 20 /min Comments: Pattern: Unlabored BP Systolic 112 mm[Hg] Comments: Patient Position: Sitting; Cuff Location: Left Arm; Cuff Size: Standard BP Diastolic 82 mm[Hg] Comments: Patient Position: Sitting; Cuff Location: Left Arm; Cuff Size: Standard Weight 262 lb Height 0 in Head Circumference 0.00 cm Results Date Description Value Details :41 Prothrombin Time w/INR Comments: [facility] [address] [place], [address] INR 2.8 (Normal) PROTIME 29.5 s (Abnormal) Range: 11.7-14.9 :47 Prothrombin Time w/INR Comments: [facility] [address] [place], [address] INR 2.7 (Normal) PROTIME 28.8 s (Abnormal) Range: 11.7-14.9 :42 Prothrombin Time w/INR Comments: Comments: STANDING ORDERComments: [facility] [address] [place], [address] INR 1.8 (Normal) PROTIME 20.9 s (Abnormal) Range: 11.7-14.9 50-Fvt-393685:31 Prothrombin Time w/INR Comments: [facility] [address] [place], [address] INR 1.9 (Normal) PROTIME 22.0 s (Abnormal) Range: 11.7-14.9 83-Onq-633153:14 Prothrombin Time w/INR Comments: [facility] [address] [place], [address] INR 2.5 (Normal) PROTIME 27.1 s (Abnormal) Range: 11.7-14.9 :04 Prothrombin Time w/INR Comments: [facility] [address] [place], [address] INR 2.4 (Normal) PROTIME 26.5 s (Abnormal) Range: 11.7-14.9 34-Xaa-261977:13 Prothrombin Time w/INR Comments: [facility] [address] [place], [address] INR 2.0 (Normal) PROTIME 22.9 s (Abnormal) Range: 11.7-14.9 54-Fwn-528295:03 Prothrombin Time w/INR Comments: [facility] [address] [place], [address] INR 2.3 (Normal) PROTIME 25.7 s (Abnormal) Range: 11.7-14.9 41-Ddn-845929:06 Prothrombin Time w/INR Comments: [facility] [address] [place], [address] INR 2.2 (Normal) PROTIME 24.3 s (Abnormal) Range: 11.7-14.9 17-Nmx-943415:42 FERRITIN (99229) Comments: PATIENT NOT FASTINGPERFORMED BY: [facility] [address]mnf[address] [facility] [id number] Ferritin, Serum 18 ng/mL (Abnormal) Range: 30-400 13-Wlx-203135:42 IRON (99478) Comments: PATIENT NOT FASTINGPERFORMED BY: [facility] [facility] [id number] Iron 24 ug/dL (Abnormal) Range: 38-169 37-Ymr-271997:59 HGB A1C (53602) HGB A1C 6.8 % (Normal) Range: 4.6 - 7.1 00-Usv-751092:55 Blood Glucose , Office (33989) Blood Glucose , Office 147 (Normal) 97-Dby-897265:40 CREATININE FINGERSTICK Comments: [facility] LaboratoryPoint of [address] [place] [address] EGFR WB > 60.0000 mL/min (Normal) CREATININE WB 1.0 mg/dL (Normal) Range: 0.70-1.30 44-Hki-62679:33 Prothrombin Time w/INR Comments: [facility] [address] [place], [address] INR 2.3 (Normal) PROTIME 25.8 s (Abnormal) Range: 11.7-14.9 7-Gpm-062881:32 TSH (49311) Comments: PATIENT WAS FASTINGPERFORMED BY: [facility]M[address]hzz[address] [facility] [id number] TSH 0.807 {uIU/mL} (Normal) Range: 0.450-4.500 3-Fhl-638323:32 CBC, Platelets & Auto Diff Comments: PATIENT WAS FASTINGPERFORMED BY: [facility]M[address]krq[address] [facility] [id number] (34231) Immature Grans (Abs) 0.0 {x10E3/uL} (Normal) Range: 0.0-0.1 Immature Granulocytes 0 % (Normal) Baso (Absolute) 0.0 {x10E3/uL} (Normal) Range: 0.0-0.2 Eos (Absolute) 0.5 {x10E3/uL} (Abnormal) Range: 0.0-0.4 Monocytes(Absolute) 0.6 {x10E3/uL} (Normal) Range: 0.1-0.9 Lymphs (Absolute) 2.6 {x10E3/uL} (Normal) Range: 0.7-3.1 Neutrophils (Absolute) 5.5 {x10E3/uL} (Normal) Range: 1.4-7.0 Basos 0 % (Normal) Eos 5 % (Normal) Monocytes 6 % (Normal) Lymphs 28 % (Normal) Neutrophils 61 % (Normal) Platelets 299 {x10E3/uL} (Normal) Range: 150-379 RDW 14.7 % (Normal) Range: 12.3-15.4 MCHC 31.3 g/dL (Abnormal) Range: 31.5-35.7 MCH 26.8 pg (Normal) Range: 26.6-33.0 MCV 86 fL (Normal) Range: 79-97 Hematocrit 34.2 % (Abnormal) Range: 37.5-51.0 Hemoglobin 10.7 g/dL (Abnormal) Range: 13.0-17.7 RBC 4.00 {x10E6/uL} (Abnormal) Range: 4.14-5.80 WBC 9.2 {x10E3/uL} (Normal) Range: 3.4-10.8 9-Bak-660689:32 Metabolic Panel, Comprehensive Comments: PATIENT WAS FASTINGPERFORMED BY: [facility] [address] [facility] [id number]; has appt today with [facility] (50286) ALT (SGPT) 27 [iU]/L (Normal) Range: 0-44 AST (SGOT) 28 [iU]/L (Normal) Range: 0-40 Alkaline Phosphatase 57 [iU]/L (Normal) Range: 39-117 Bilirubin, Total 0.4 mg/dL (Normal) Range: 0.0-1.2 A/G Ratio 1.5 (Normal) Range: 1.2-2.2 Globulin, Total 2.7 g/dL (Normal) Range: 1.5-4.5 Albumin 4.1 g/dL (Normal) Range: 3.5-4.8 Protein, Total 6.8 g/dL (Normal) Range: 6.0-8.5 Calcium 9.5 mg/dL (Normal) Range: 8.6-10.2 Carbon Dioxide, Total 22 mmol/L (Normal) Range: 18-29 Chloride 103 mmol/L (Normal) Range: 96-106 Potassium 4.5 mmol/L (Normal) Range: 3.5-5.2 Sodium 142 mmol/L (Normal) Range: 134-144 BUN/Creatinine Ratio 24 (Normal) Range: 10-24 eGFR If Africn Am 85 mL/min/1.73 (Normal) eGFR If NonAfricn Am 73 mL/min/1.73 (Normal) Creatinine 1.00 mg/dL (Normal) Range: 0.76-1.27 BUN 24 mg/dL (Normal) Range: 8-27 Glucose 154 mg/dL (Abnormal) Range: 65-99 87-Tvi-674471:26 Prothrombin Time w/INR Comments: [facility] [address] [place], [place], [address] INR 2.0 (Normal) PROTIME 22.2 s (Abnormal) Range: 11.7-14.9 58-Cyf-434067:49 Prothrombin Time w/INR Comments: [facility] [address] [place], [place], [address] INR 2.1 (Normal) PROTIME 22.9 s (Abnormal) Range: 11.7-14.9 :41 Prothrombin Time w/INR Comments: [facility] [address] [place], [place], [id number] ; managed by [facility] INR 2.1 (Normal) PROTIME 22.8 s (Abnormal) Range: 11.7-14.9 59-Adi-483280:19 Blood Glucose , Office (37387) Blood Glucose , Office 105 (Normal) 69-Pmx-229696:19 HgA1C , Office (27416) HgA1C , Office 6.4 % (Normal) Range: 4.6 - 7.1 36-Meg-155931:24 Microscopic Examination Comments: PATIENT WAS FASTINGPERFORMED BY: [facility] [address] [place] [id number] Bacteria None seen (Normal) Mucus Threads Present (Normal) Cast Type Hyaline casts (Normal) Casts Present {/lpf} (Abnormal) Epithelial Cells (non renal) 0-10 {/hpf} (Normal) Range: 0 - 10 RBC 0-2 {/hpf} (Normal) Range: 0 - 2 WBC 0-5 {/hpf} (Normal) Range: 0 - 5 80-Scr-116498:00 Prothrombin Time w/INR Comments: [facility] [address] [place], [place], [phone](626) INR 2.0 (Normal) Comments: ADDENDA: managed by cardio PROTIME 22.2 s (Abnormal) Range: 11.7-14.9 86-Bqa-436368:56 Prothrombin Time w/INR Comments: [facility] [address] [place], [place], [phone](162) INR 2.0 (Normal) PROTIME 22.0 s (Abnormal) Range: 11.7-14.9 87-Aey-690971:22 Prothrombin Time w/INR Comments: [facility] [address] [place], [place], [address]) ; managed by [facility] INR 2.7 (Normal) PROTIME 27.3 s (Abnormal) Range: 11.7-14.9 Comments: ADDENDA: cardio 48-Ghu-372670:06 Prothrombin Time w/INR Comments: [facility] [address] [place], [address] INR 2.1 (Normal) PROTIME 23.1 s (Abnormal) Range: 11.7-14.9 Comments: ADDENDA: managed by cardio 8-Uil-870679:16 Prothrombin Time w/INR Comments: [facility] [address] [place], [place], [phone] INR 2.3 (Normal) PROTIME 24.7 s (Abnormal) Range: 11.7-14.9 24-Ddz-868684:24 CALCIFEDIOL (72712) Comments: Jun 2017; PATIENT WAS FASTINGPERFORMED BY: [facility] L[address]vlry[address] RoadDublin [place] [id number] Vitamin D, 25-Hydroxy 45.0 ng/mL (Normal) Range: 30.0-100.0 Comments: Vitamin D deficiency has been defined by the [place] [facility] and an Endocrine Society practice guideline as alevel of serum 25-OH vitamin D less than 20 ng/mL (1,2).The Endocrine Society went on to further define vitamin Dinsufficiency as a level between 21 and 29 ng/mL (2).1. IOM ([place] of Medicine). 2010. Dietary reference intakes for calcium and D. [place]: The National AcademPeerMe Press.2. Antionette MF, Emma SUÁREZ, Solis FERNÁNDEZ, et al. Evaluation, treatment, and prevention of vitamin D deficiency: an Endocrine Society clinical practice guideline. JCEM. 2010; 96(7):1911-30. 00-Dgz-428568:24 MICROALBUMIN: CREATININE RATIO Comments: Jun 2017; PATIENT WAS FASTINGPERFORMED BY: Bagel Nash [facility] [address]xxr[address] RoadDublin [place] [id number] (71840) AND (19808) Microalb/Creat Ratio 38.6 {mg/g_creat} (Abnormal) Range: 0.0-30.0 Microalbumin, Urine 73.4 ug/mL (Normal) Creatinine, Urine 190.3 mg/dL (Normal) 09-Ijt-079371:24 TSH (96017) Comments: Jun 2017; PATIENT WAS FASTINGPERFORMED BY: [facility] [address]xtm[address]Dublin [place] [id number] TSH 1.120 {uIU/mL} (Normal) Range: 0.450-4.500 57-Qla-464585:24 URINALYSIS (53496) Comments: Jun 2017; PATIENT WAS FASTINGPERFORMED BY: [facility] Foplgf5[address] Barrett RoadDublin [place] [id number] Microscopic Examination See below: (Normal) Comments: Microscopic was indicated and was performed. Nitrite, Urine Negative (Normal) Urobilinogen,Semi-Qn 1.0 mg/dL (Normal) Range: 0.2-1.0 Bilirubin Negative (Normal) Occult Blood Trace (Abnormal) Ketones Negative (Normal) Glucose Negative (Normal) Protein Trace (Normal) WBC Esterase Negative (Normal) Appearance Clear (Normal) Urine-Color Yellow (Normal) pH 6.0 (Normal) Range: 5.0-7.5 Specific [place] 1.023 (Normal) Range: 1.005-1.030 38-Wvg-800021:24 CBC, Platelets & Auto Diff Comments: Jun 2017; PATIENT WAS FASTINGPERFORMED BY: [facility]ntvi[address] [facility] [id number] (22516) Immature Grans (Abs) 0.0 {x10E3/uL} (Normal) Range: 0.0-0.1 Immature Granulocytes 0 % (Normal) Baso (Absolute) 0.0 {x10E3/uL} (Normal) Range: 0.0-0.2 Eos (Absolute) 0.2 {x10E3/uL} (Normal) Range: 0.0-0.4 Monocytes(Absolute) 0.4 {x10E3/uL} (Normal) Range: 0.1-0.9 Lymphs (Absolute) 2.7 {x10E3/uL} (Normal) Range: 0.7-3.1 Neutrophils (Absolute) 4.9 {x10E3/uL} (Normal) Range: 1.4-7.0 Basos 0 % (Normal) Eos 3 % (Normal) Monocytes 5 % (Normal) Lymphs 32 % (Normal) Neutrophils 60 % (Normal) Platelets 258 {x10E3/uL} (Normal) Range: 150-379 RDW 14.3 % (Normal) Range: 12.3-15.4 MCHC 32.8 g/dL (Normal) Range: 31.5-35.7 MCH 30.0 pg (Normal) Range: 26.6-33.0 MCV 91 fL (Normal) Range: 79-97 Hematocrit 40.6 % (Normal) Range: 37.5-51.0 Hemoglobin 13.3 g/dL (Normal) Range: 12.6-17.7 Comments: Effective July 20, 2017 the reference interval for Hemoglobin MALES only will be changing to: Males 13-15 years: 12.6 - 17.7 Males >15 years: 13.0 - 17.7 RBC 4.44 {x10E6/uL} (Normal) Range: 4.14-5.80 WBC 8.3 {x10E3/uL} (Normal) Range: 3.4-10.8 29-Xne-517967:24 Metabolic Panel, Comprehensive Comments: Jun 2017; PATIENT WAS FASTINGPERFORMED BY: [facility] [facility] [id number] ([id number]) ALT (SGPT) 26 [iU]/L (Normal) Range: 0-44 AST (SGOT) 31 [iU]/L (Normal) Range: 0-40 Alkaline Phosphatase, S 50 [iU]/L (Normal) Range: 39-117 Bilirubin, Total 0.6 mg/dL (Normal) Range: 0.0-1.2 A/G Ratio 1.8 (Normal) Range: 1.2-2.2 Globulin, Total 2.5 g/dL (Normal) Range: 1.5-4.5 Albumin, Serum 4.4 g/dL (Normal) Range: 3.5-4.8 Protein, Total, Serum 6.9 g/dL (Normal) Range: 6.0-8.5 Calcium, Serum 10.0 mg/dL (Normal) Range: 8.6-10.2 Carbon Dioxide, Total 22 mmol/L (Normal) Range: 18-29 Chloride, Serum 100 mmol/L (Normal) Range: 96-106 Potassium, Serum 4.7 mmol/L (Normal) Range: 3.5-5.2 Sodium, Serum 143 mmol/L (Normal) Range: 134-144 BUN/Creatinine Ratio 16 (Normal) Range: 10-24 eGFR If Africn Am 69 mL/min/1.73 (Normal) eGFR If NonAfricn Am 60 mL/min/1.73 (Normal) Creatinine, Serum 1.19 mg/dL (Normal) Range: 0.76-1.27 BUN 19 mg/dL (Normal) Range: 8-27 Glucose, Serum 172 mg/dL (Abnormal) Range: 65-99 77-Dsh-908098:43 HgA1C , Office (73098) HgA1C , Office 7.1 % (Normal) Range: 4.6 - 7.1 04-Nsl-742784:43 Blood Glucose , Office (97250) Blood Glucose , Office 198 (Normal) :40 Prothrombin Time w/INR Comments: [facility] [address] [place], [place], [phone] INR 2.5 (Normal) PROTIME 26.2 s (Abnormal) Range: 11.7-14.9 :56 Prothrombin Time w/INR Comments: [facility] [address] [place], [place], [phone] INR 2.3 (Normal) PROTIME 24.5 s (Abnormal) Range: 11.7-14.9 :03 Prothrombin Time w/INR Comments: [facility] [address] [place], [address] ; managed by cardio INR 2.2 (Normal) PROTIME 23.9 s (Abnormal) Range: 11.7-14.9 :36 HgA1C , Office (28956) HgA1C , Office 7.2 % (Abnormal) Range: 4.6 - 7.1 :36 Blood Glucose , Office (28181) Blood Glucose , Office 183 (Normal) :30 Microscopic Examination Comments: PATIENT WAS FASTINGPERFORMED BY: [facility]Nuuipv[address] [facility] [id number] Bacteria None seen (Normal) Mucus Threads Present (Normal) Cast Type Hyaline casts (Normal) Casts Present {/lpf} (Abnormal) Epithelial Cells (non renal) 0-10 {/hpf} (Normal) Range: 0 - 10 RBC 0-2 {/hpf} (Normal) Range: 0 - 2 WBC None seen {/hpf} (Normal) Range: 0 - 5 :54 Prothrombin Time w/INR Comments: [facility] [address] [place], [place], [id number] INR 2.2 (Normal) PROTIME 23.6 s (Abnormal) Range: 11.7-14.9 :30 TSH (20608) Comments: PATIENT WAS FASTINGPERFORMED BY: ALFONSO [employer] [facility] [id number] TSH 0.986 {uIU/mL} (Normal) Range: 0.450-4.500 : CBC with auto diff (48064) Comments: PATIENT WAS FASTINGPERFORMED BY: [employer] [facility] [id number] Immature Grans (Abs) 0.0 {x10E3/uL} (Normal) Range: 0.0-0.1 Immature Granulocytes 0 % (Normal) Baso (Absolute) 0.0 {x10E3/uL} (Normal) Range: 0.0-0.2 Eos (Absolute) 0.4 {x10E3/uL} (Normal) Range: 0.0-0.4 Monocytes(Absolute) 0.8 {x10E3/uL} (Normal) Range: 0.1-0.9 Lymphs (Absolute) 3.2 {x10E3/uL} (Abnormal) Range: 0.7-3.1 Neutrophils (Absolute) 4.9 {x10E3/uL} (Normal) Range: 1.4-7.0 Basos 0 % (Normal) Eos 4 % (Normal) Monocytes 8 % (Normal) Lymphs 35 % (Normal) Neutrophils 53 % (Normal) Platelets 215 {x10E3/uL} (Normal) Range: 150-379 RDW 14.3 % (Normal) Range: 12.3-15.4 MCHC 33.2 g/dL (Normal) Range: 31.5-35.7 MCH 29.7 pg (Normal) Range: 26.6-33.0 MCV 90 fL (Normal) Range: 79-97 Hematocrit 38.9 % (Normal) Range: 37.5-51.0 Hemoglobin 12.9 g/dL (Normal) Range: 12.6-17.7 RBC 4.34 {x10E6/uL} (Normal) Range: 4.14-5.80 WBC 9.3 {x10E3/uL} (Normal) Range: 3.4-10.8 :30 MICROALBUMIN: CREATININE RATIO Comments: PATIENT WAS FASTINGPERFORMED BY: [facility] [facility] [id number] (86241) AND (00992) Microalb/Creat Ratio 52.7 {mg/g_creat} (Abnormal) Range: 0.0-30.0 Microalbumin, Urine 38.4 ug/mL (Normal) Creatinine, Urine 72.9 mg/dL (Normal) :30 URINALYSIS, W/ MICRO (31375) Comments: PATIENT WAS FASTINGPERFORMED BY: [facility] [facility] [id number] Microscopic Examination See below: (Normal) Comments: Microscopic was indicated and was performed. Nitrite, Urine Negative (Normal) Urobilinogen,Semi-Qn 0.2 mg/dL (Normal) Range: 0.2-1.0 Bilirubin Negative (Normal) Occult Blood 2+ (Abnormal) Ketones Negative (Normal) Glucose Negative (Normal) Protein Negative (Normal) WBC Esterase Negative (Normal) Appearance Clear (Normal) Urine-Color Yellow (Normal) pH 6.0 (Normal) Range: 5.0-7.5 Specific [place] 1.020 (Normal) Range: 1.005-1.030 :30 LIPID PANEL (37126) Comments: PATIENT WAS FASTINGPERFORMED BY: [facility] [facility] [id number] LDL/HDL Ratio 1.8 {ratio_units} (Normal) Range: 0.0-3.6 Comments: LDL/HDL Ratio Men Women 1/2 Avg.Risk 1.0 1.5 Av g.Risk 3.6 3.2 2X Avg.Risk 6.2 5.0 3X Avg.Risk 8.0 6.1 LDL Cholesterol Calc 65 mg/dL (Normal) Range: 0-99 VLDL Cholesterol Wallace 25 mg/dL (Normal) Range: 5-40 HDL Cholesterol 37 mg/dL (Abnormal) Triglycerides 125 mg/dL (Normal) Range: 0-149 Cholesterol, Total 127 mg/dL (Normal) Range: 100-199 :30 METABOLIC PANEL, COMPREHENSIVE Comments: PATIENT WAS FASTINGPERFORMED BY: [facility] [facility] [id number] (03876) ALT (SGPT) 19 [iU]/L (Normal) Range: 0-44 AST (SGOT) 20 [iU]/L (Normal) Range: 0-40 Alkaline Phosphatase, S 54 [iU]/L (Normal) Range: 39-117 Bilirubin, Total 0.6 mg/dL (Normal) Range: 0.0-1.2 A/G Ratio 1.5 (Normal) Range: 1.2-2.2 Globulin, Total 2.8 g/dL (Normal) Range: 1.5-4.5 Albumin, Serum 4.1 g/dL (Normal) Range: 3.5-4.8 Protein, Total, Serum 6.9 g/dL (Normal) Range: 6.0-8.5 Calcium, Serum 9.7 mg/dL (Normal) Range: 8.6-10.2 Carbon Dioxide, Total 20 mmol/L (Normal) Range: 18-29 Chloride, Serum 102 mmol/L (Normal) Range: 96-106 Potassium, Serum 4.5 mmol/L (Normal) Range: 3.5-5.2 Sodium, Serum 142 mmol/L (Normal) Range: 134-144 BUN/Creatinine Ratio 22 (Normal) Range: 10-24 eGFR If Africn Am 99 mL/min/1.73 (Normal) eGFR If NonAfricn Am 85 mL/min/1.73 (Normal) Creatinine, Serum 0.86 mg/dL (Normal) Range: 0.76-1.27 BUN 19 mg/dL (Normal) Range: 8-27 Glucose, Serum 148 mg/dL (Abnormal) Range: 65-99 96-Npx-704918:29 Prothrombin Time w/INR Comments: [facility] Vpquadcnpq3603 [facility] [place], [place], [id number] INR 2.2 (Normal) PROTIME 23.7 s (Abnormal) Range: 11.7-14.9 :52 Prothrombin Time w/INR Comments: [facility] Tgpxnobfhh5958 [facility] [place], [place], [id number] INR 2.8 (Normal) PROTIME 28.3 s (Abnormal) Range: 11.7-14.9 22-Tyh-058081:54 Prothrombin Time w/INR Comments: [facility] [address] [place], [address] INR 2.2 (Normal) PROTIME 24.1 s (Abnormal) Range: 11.7-14.9 :06 HgA1C , Office (41046) HgA1C , Office 6.7 % (Normal) Range: 4.6 - 7.1 :06 Blood Glucose , Office (62905) Blood Glucose , Office 95 (Normal) :33 Prothrombin Time w/INR Comments: [facility] [address] [place], [address] ; cardio manages INR 2.1 (Normal) PROTIME 22.9 s (Abnormal) Range: 11.7-14.9 :39 Prothrombin Time w/INR Comments: [facility] [address] [place], [address] ; nury INR 2.4 (Normal) PROTIME 25.7 s (Abnormal) Range: 11.7-14.9 :23 Prothrombin Time w/INR Comments: [facility] [address] [place], [address] ; managed by cardio INR 2.2 (Normal) PROTIME 24.1 s (Abnormal) Range: 11.7-14.9 :23 Prothrombin Time w/INR Comments: [facility] [address] [place], [address] INR 2.4 (Normal) Comments: ADDENDA: cardio manages PROTIME 25.4 s (Abnormal) Range: 11.7-14.9 :47 HgA1C , Office (09709) Comments: 7.8 HgA1C , Office 7.8 % (Abnormal) Range: 4.6 - 7.1 :47 Blood Glucose , Office (41227) Blood Glucose , Office 165 (Normal) :38 MICROALBUMIN: CREATININE RATIO Comments: PATIENT WAS FASTINGPERFORMED BY: [facility] [facility] [id number] (68769) AND (98042) Microalb/Creat Ratio 35.5 {mg/g_creat} (Abnormal) Range: 0.0-30.0 Microalbumin, Urine 81.0 ug/mL (Normal) Creatinine, Urine 228.3 mg/dL (Normal) 70-Jit-424795:38 URINALYSIS (34015) Comments: PATIENT WAS FASTINGPERFORMED BY: [facility]Ngwmyj[address] [facility] [id number] Microscopic Examination MICNIP (Normal) Comments: Microscopic not indicated and not performed. Nitrite, Urine Negative (Normal) Urobilinogen,Semi-Qn 1.0 mg/dL (Normal) Range: 0.2-1.0 Bilirubin Negative (Normal) Occult Blood Negative (Normal) Ketones Negative (Normal) Glucose Negative (Normal) Protein Trace (Normal) WBC Esterase Negative (Normal) Appearance Clear (Normal) Urine-Color Yellow (Normal) pH 6.0 (Normal) Range: 5.0-7.5 Specific [place] 1.016 (Normal) Range: 1.005-1.030 22-Pue-135881:38 TSH (09718) Comments: PATIENT WAS FASTINGPERFORMED BY: [facility]Uuhoky[address] [facility] [id number] TSH 0.724 {uIU/mL} (Normal) Range: 0.450-4.500 :38 Metabolic Panel, Comprehensive Comments: PATIENT WAS FASTINGPERFORMED BY: [facility]Aotwtd[address] [facility] [id number] (75442) ALT (SGPT) 22 [iU]/L (Normal) Range: 0-44 AST (SGOT) 19 [iU]/L (Normal) Range: 0-40 Alkaline Phosphatase, S 53 [iU]/L (Normal) Range: 39-117 Bilirubin, Total 0.6 mg/dL (Normal) Range: 0.0-1.2 A/G Ratio 1.6 (Normal) Range: 1.1-2.5 Globulin, Total 2.7 g/dL (Normal) Range: 1.5-4.5 Albumin, Serum 4.2 g/dL (Normal) Range: 3.5-4.8 Protein, Total, Serum 6.9 g/dL (Normal) Range: 6.0-8.5 Calcium, Serum 9.7 mg/dL (Normal) Range: 8.6-10.2 Carbon Dioxide, Total 21 mmol/L (Normal) Range: 18-29 Chloride, Serum 101 mmol/L (Normal) Range: 97-108 Potassium, Serum 4.5 mmol/L (Normal) Range: 3.5-5.2 Sodium, Serum 141 mmol/L (Normal) Range: 134-144 BUN/Creatinine Ratio 19 (Normal) Range: 10-22 eGFR If Africn Am 90 mL/min/1.73 (Normal) eGFR If NonAfricn Am 78 mL/min/1.73 (Normal) Creatinine, Serum 0.96 mg/dL (Normal) Range: 0.76-1.27 BUN 18 mg/dL (Normal) Range: 8-27 Glucose, Serum 199 mg/dL (Abnormal) Range: 65-99 :38 CALCIFEDIOL (40544) Comments: PATIENT WAS FASTINGPERFORMED BY: [address] [employer] [place] [id number] Vitamin D, 25-Hydroxy 61.4 ng/mL (Normal) Range: 30.0-100.0 Comments: Vitamin D deficiency has been defined by the [place] of[place]icine and an Endocrine Society practice guideline as alevel of serum 25-OH vitamin D less than 20 ng/mL (1,2).The Endocrine Society went on to further define vitamin Dinsufficiency as a level between 21 and 29 ng/mL (2).1. IOM ([place] of Medicine). 2010. Dietary reference intakes for calcium and D. [place]: The National Academies Press.2. Antionette MF, Emma NC, Solis FERNÁNDEZ, et al. Evaluation, treatment, and prevention of vitamin D deficiency: an Endocrine Society clinical practice guideline. JCEM. 2010; 96(7):1911-30. :38 LIPID PANEL (54693) Comments: PATIENT WAS FASTINGPERFORMED BY: Bagel Nash [facility] Movopz8325 [facility] HospitalSparql CityCarolin[facility] [id number]; OV 05/16 LDL/HDL Ratio 1.6 {ratio_units} (Normal) Range: 0.0-3.6 Comments: LDL/HDL Ratio Men Women 1/2 Avg.Risk 1.0 1.5 Av g.Risk 3.6 3.2 2X Avg.Risk 6.2 5.0 3X Avg.Risk 8.0 6.1 LDL Cholesterol Calc 56 mg/dL (Normal) Range: 0-99 VLDL Cholesterol Wallace 33 mg/dL (Normal) Range: 5-40 HDL Cholesterol 36 mg/dL (Abnormal) Comments: According to ATP-III Guidelines, HDL-C >59 mg/dL is considered anegative risk factor for CHD. Triglycerides 163 mg/dL (Abnormal) Range: 0-149 Cholesterol, Total 125 mg/dL (Normal) Range: 100-199 27-Xan-286146:09 Prothrombin Time w/INR Comments: [facility] [address] [place], [address] INR 2.8 (Normal) PROTIME 28.4 s (Abnormal) Range: 11.7-14.9 :07 Prothrombin Time w/INR Comments: [facility] [address] [place], [address] INR 3.2 (Normal) PROTIME 31.8 s (Abnormal) Range: 11.7-14.9 80-Lhe-381487:23 Prothrombin Time w/INR Comments: [facility] [address] [place], [address] ; Dr Arrington manages INR 2.6 (Normal) PROTIME 27.4 s (Abnormal) Range: 11.7-14.9 2-Msp-250332:29 Prothrombin Time w/INR Comments: [facility] [address] [place], [address] INR 1.9 (Normal) PROTIME 20.9 s (Abnormal) Range: 11.7-14.9 :01 Prothrombin Time w/INR Comments: [facility] [address] [place], [address] ; nury INR 2.5 (Normal) PROTIME 26.3 s (Abnormal) Range: 11.7-14.9 :51 Prothrombin Time w/INR Comments: [facility] [address] [place], [address] INR 3.1 (Normal) PROTIME 30.7 s (Abnormal) Range: 11.7-14.9 :38 Blood Glucose , Office (15366) Blood Glucose , Office 205 (Normal) Comments: non-fasting :38 HgA1C , Office (97041) HgA1C , Office 7.0 % (Normal) Range: 4.6 - 7.1 :50 Prothrombin Time w/INR Comments: [facility] [address] [place], [address] ; managed by katiana INR 3.2 (Normal) PROTIME 31.5 s (Abnormal) Range: 11.7-14.9 :20 Prothrombin Time w/INR Comments: [facility] [address] [place], [address] INR 2.4 (Normal) PROTIME 25.3 s (Abnormal) Range: 11.7-14.9 :02 Prothrombin Time w/INR Comments: [facility] [address] [place], [address] INR 2.6 (Normal) PROTIME 27.0 s (Abnormal) Range: 11.7-14.9 :46 Prothrombin Time w/INR Comments: [facility] [address] [place], [address] INR 2.2 (Normal) PROTIME 24.9 s (Abnormal) Range: 11.7-14.9 :05 HgA1C , Office (48683) HgA1C , Office 7.2 % (Abnormal) Range: 4.6 - 7.1 :26 Prothrombin Time w/INR Comments: [facility] [address] [place], [address] ; managed by dr arrington INR 2.4 (Normal) PROTIME 26.3 s (Abnormal) Range: 11.7-14.9 :06 Prothrombin Time w/INR Comments: [facility] [address] [place], [phone](612) INR 2.9 (Normal) PROTIME 30.0 s (Abnormal) Range: 11.7-14.9 :14 BUN 23 mg/dL (Abnormal) Comments: [facility] [address] [place], [phone] Range: 7-18 :14 Serum Creatinine AND GFR Comments: [facility] [address] [place], [id number] EST GFR - AA 83 mL/min (Normal) Comments: GFR Calc EST GFR 68 mL/min (Normal) Comments: Non- GFR Calc CREAT,SERUM 1.12 mg/dL (Normal) Range: 0.70-1.30 Comments: The validity of the calculated GFR AND GFRAA in patients over70 years has not been determined. Clinical correlation isessential. :41 Prothrombin Time w/INR Comments: [facility] [address] [place], [phone](164) INR 3.6 (Abnormal) Comments: CRITICAL VALUE REPEATED AND VERIFIED. CALLED TO CHANDLER09/26/15 [facility]3 Bell Lackey.RESULTS READ BACK BY SAME . PROTIME 35.4 s (Abnormal) Range: 11.7-14.9 90-Fhr-467738:39 Prothrombin Time w/INR Comments: [facility] [address] [place], [phone](915) INR 2.1 (Normal) PROTIME 23.4 s (Abnormal) Range: 11.7-14.9 :33 Prothrombin Time w/INR Comments: [facility] [address] [place], [phone](266) INR 1.0 (Normal) PROTIME 13.9 s (Normal) Range: 11.7-14.9 04-Uhd-860174:10 Prothrombin Time w/INR Comments: [facility] [address] [place], [id number] INR 2.2 (Normal) PROTIME 24.7 s (Abnormal) Range: 11.7-14.9 52-Ygy-253894:36 Methymalonic Acid, Serum Comments: today; PATIENT WAS FASTINGPERFORMED BY: Bagel Nash LabNUOFFER70 Barrett Roadblin [place] [id number] BY: P[address] [id number] (47871) Methylmalonic Acid, Serum 142 nmol/L (Normal) Range: 0-378 37-Voh-236393:36 VITAMIN B-12 Comments: today; PATIENT WAS FASTINGPERFORMED BY: Bagel Nash LabGlobal Experience Tqdlsx3775 Barrett RoadDublin [place] [id number] BY: [employer] [id number] (CYANOCOBALAMIN) (64850) Vitamin B12 >2000 pg/mL (Abnormal) Range: 211-946 42-Hkk-384584:36 TSH (60314) Comments: today; PATIENT WAS FASTINGPERFORMED BY: Bagel Nash [facility] Cwfeux[address] [facility] Centerbl[facility] [place] [id number] BY: [employer] [id number] TSH 0.993 {uIU/mL} (Normal) Range: 0.450-4.500 51-Dtc-946605:36 CALCIFIDIOL (51469) VIT D Comments: today; PATIENT WAS FASTINGPERFORMED BY: Bagel Nash LabPicooc Technologyrp Aisvvh[address] [facility] Hospitalin [place] [id number] BY: [address] [id number] 25 Vitamin D, 25-Hydroxy 51.1 ng/mL (Normal) Range: 30.0-100.0 Comments: Vitamin D deficiency has been defined by the [place] of[place]icine and an Endocrine Society practice guideline as alevel of serum 25-OH vitamin D less than 20 ng/mL (1,2).The Endocrine Society went on to further define vitamin Dinsufficiency as a level between 21 and 29 ng/mL (2).1. IOM ([place] of Medicine). 2010. Dietary reference intakes for calcium and D. [place]: The National Academies Press.2. Antionette MF, Emma SUÁREZ, Solis FERNÁNDEZ, et al. Evaluation, treatment, and prevention of vitamin D deficiency: an Endocrine Society clinical practice guideline. JCEM. 2010; 96(7):1911-30. 34-Zwn-213220:36 Metabolic Panel, Comments: all these in three months (approximately); PATIENT WAS FASTINGPERFORMED BY: CB [facility] Atstis[address] [facility] [id number] BY: BN [facility] Diilflqsog3913 [facility] (17032) [id number] Information: [id number] ALT (SGPT) 21 [iU]/L (Normal) Range: 0-44 AST (SGOT) 23 [iU]/L (Normal) Range: 0-40 Alkaline Phosphatase, S 52 [iU]/L (Normal) Range: 39-117 Bilirubin, Total 0.6 mg/dL (Normal) Range: 0.0-1.2 A/G Ratio 1.7 (Normal) Range: 1.1-2.5 Globulin, Total 2.5 g/dL (Normal) Range: 1.5-4.5 Albumin, Serum 4.3 g/dL (Normal) Range: 3.5-4.8 Protein, Total, Serum 6.8 g/dL (Normal) Range: 6.0-8.5 Calcium, Serum 10.0 mg/dL (Normal) Range: 8.6-10.2 Carbon Dioxide, Total 26 mmol/L (Normal) Range: 18-29 Chloride, Serum 101 mmol/L (Normal) Range: 97-108 Potassium, Serum 4.5 mmol/L (Normal) Range: 3.5-5.2 Sodium, Serum 140 mmol/L (Normal) Range: 134-144 BUN/Creatinine Ratio 14 (Normal) Range: 10-22 eGFR If Africn Am 90 mL/min/1.73 (Normal) eGFR If NonAfricn Am 78 mL/min/1.73 (Normal) Creatinine, Serum 0.96 mg/dL (Normal) Range: 0.76-1.27 BUN 13 mg/dL (Normal) Range: 8-27 Glucose, Serum 183 mg/dL (Abnormal) Range: 65-99 :36 CBC (Auto) (77925) Comments: PATIENT WAS FASTINGPERFORMED BY: [employer] [id number] BY: [employer] [id number] Platelets 214 {x10E3/uL} (Normal) Range: 150-379 RDW 14.3 % (Normal) Range: 12.3-15.4 MCHC 32.4 g/dL (Normal) Range: 31.5-35.7 MCH 30.4 pg (Normal) Range: 26.6-33.0 MCV 94 fL (Normal) Range: 79-97 Hematocrit 42.3 % (Normal) Range: 37.5-51.0 Hemoglobin 13.7 g/dL (Normal) Range: 12.6-17.7 RBC 4.51 {x10E6/uL} (Normal) Range: 4.14-5.80 WBC 8.8 {x10E3/uL} (Normal) Range: 3.4-10.8 :36 Lipid Panel (65614) Comments: PATIENT WAS FASTINGPERFORMED BY: [employer] [id number] BY: [employer] [id number] LDL/HDL Ratio 1.5 {ratio_units} (Normal) Range: 0.0-3.6 Comments: LDL/HDL Ratio Men Women 1/2 Avg.Risk 1.0 1.5 Av g.Risk 3.6 3.2 2X Avg.Risk 6.2 5.0 3X Avg.Risk 8.0 6.1 LDL Cholesterol Calc 60 mg/dL (Normal) Range: 0-99 VLDL Cholesterol Wallace 21 mg/dL (Normal) Range: 5-40 HDL Cholesterol 40 mg/dL (Normal) Comments: According to ATP-III Guidelines, HDL-C >59 mg/dL is considered anegative risk factor for CHD. Triglycerides 104 mg/dL (Normal) Range: 0-149 Cholesterol, Total 121 mg/dL (Normal) Range: 100-199 11-Jjp-395922:11 Prothrombin Time w/INR Comments: [facility] [address] [place], [place], [id number] INR 1.9 (Normal) PROTIME 21.5 s (Abnormal) Range: 11.7-14.9 4-Isr-230517:11 Prothrombin Time w/INR Comments: [facility] [address] [place], [place], [id number] INR 2.2 (Normal) PROTIME 24.9 s (Abnormal) Range: 11.7-14.9 68-Vom-400016:39 Prothrombin Time w/INR Comments: [facility] [address] [place], [address] ; ordered by [facility] INR 2.3 (Normal) PROTIME 25.3 s (Abnormal) Range: 11.7-14.9 62-Thw-706464:40 Sputum Culture (42825) Comments: PATIENT NOT FASTINGPERFORMED BY: [facility]Thhaqg[address] [facility] [id number] Information: [id number] Result 1 RRF (Normal) Comments: Routine respiratory mariano Lower Respiratory Culture Final report (Normal) 1-Bln-544974:16 Prothrombin Time w/INR Comments: [facility] [address] [place], [place], [id number] INR 1.7 (Normal) PROTIME 20.1 s (Abnormal) Range: 11.7-14.9 53-Efd-036189:29 HgA1C , Office (27644) HgA1C , Office 6.5 % (Normal) Range: 4.6 - 7.1 :29 Blood Glucose , Office (43583) Blood Glucose , Office 299 (Normal) 8-Scj-181215:06 Prothrombin Time w/INR Comments: [facility] [address] [place], [place], [address] INR 2.1 (Normal) PROTIME 23.9 s (Abnormal) Range: 11.7-14.9 4-Mpw-945649:00 Prothrombin Time w/INR Comments: Test performed at:[facility] [address] [place] [address] INR 2.7 (Normal) Comments: ADDENDA: handled by cardio PROTIME 28.3 s (Abnormal) Range: 11.7-14.9 66-Bkb-759020:19 Prothrombin Time w/INR Comments: Test performed at:[facility] [address] [place] [address] INR 2.5 (Normal) PROTIME 26.8 s (Abnormal) Range: 11.7-14.9 84-Prm-652961:01 Prothrombin Time w/INR Comments: Test performed at:[facility] [address] [place] [address] INR 2.4 (Normal) PROTIME 26.3 s (Abnormal) Range: 11.7-14.9 9-Nle-758937:35 LIPID PANEL (11620) Comments: copy to Dr. arrington; PATIENT WAS FASTINGPERFORMED BY: [employer] [place] [id number] LDL/HDL Ratio 1.5 {ratio_units} (Normal) Range: 0.0-3.6 Comments: LDL/HDL Ratio Men Women 1/2 Avg.Risk 1.0 1.5 Av g.Risk 3.6 3.2 2X Avg.Risk 6.2 5.0 3X Avg.Risk 8.0 6.1 LDL Cholesterol Calc 60 mg/dL (Normal) Range: 0-99 VLDL Cholesterol Wallace 20 mg/dL (Normal) Range: 5-40 HDL Cholesterol 40 mg/dL (Normal) Comments: According to ATP-III Guidelines, HDL-C >59 mg/dL is considered anegative risk factor for CHD. Triglycerides 100 mg/dL (Normal) Range: 0-149 Cholesterol, Total 120 mg/dL (Normal) Range: 100-199 :35 METABOLIC PANEL, COMPREHENSIVE Comments: PATIENT WAS FASTINGPERFORMED BY: [facility] TechnologyCarolin[facility] [id number] (12926) ALT (SGPT) 22 [iU]/L (Normal) Range: 0-44 AST (SGOT) 22 [iU]/L (Normal) Range: 0-40 Alkaline Phosphatase, S 52 [iU]/L (Normal) Range: 39-117 Bilirubin, Total 0.8 mg/dL (Normal) Range: 0.0-1.2 A/G Ratio 1.5 (Normal) Range: 1.1-2.5 Globulin, Total 2.8 g/dL (Normal) Range: 1.5-4.5 Albumin, Serum 4.2 g/dL (Normal) Range: 3.5-4.8 Protein, Total, Serum 7.0 g/dL (Normal) Range: 6.0-8.5 Calcium, Serum 9.7 mg/dL (Normal) Range: 8.6-10.2 Carbon Dioxide, Total 19 mmol/L (Normal) Range: 18-29 Chloride, Serum 102 mmol/L (Normal) Range: 97-108 Potassium, Serum 4.3 mmol/L (Normal) Range: 3.5-5.2 Sodium, Serum 140 mmol/L (Normal) Range: 134-144 BUN/Creatinine Ratio 17 (Normal) Range: 10-22 eGFR If Africn Am 101 mL/min/1.73 (Normal) eGFR If NonAfricn Am 87 mL/min/1.73 (Normal) Creatinine, Serum 0.84 mg/dL (Normal) Range: 0.76-1.27 BUN 14 mg/dL (Normal) Range: 8-27 Glucose, Serum 166 mg/dL (Abnormal) Range: 65-99 3-Blj-994906:35 CBC with auto diff Comments: PATIENT WAS FASTINGPERFORMED BY: [facility]Cbhzxq[address] [facility] [id number] Information: [id number] (74735) Immature Grans (Abs) 0.0 {x10E3/uL} (Normal) Range: 0.0-0.1 Immature Granulocytes 0 % (Normal) Baso (Absolute) 0.0 {x10E3/uL} (Normal) Range: 0.0-0.2 Eos (Absolute) 0.2 {x10E3/uL} (Normal) Range: 0.0-0.4 Monocytes(Absolute) 0.5 {x10E3/uL} (Normal) Range: 0.1-0.9 Lymphs (Absolute) 2.3 {x10E3/uL} (Normal) Range: 0.7-3.1 Neutrophils (Absolute) 5.0 {x10E3/uL} (Normal) Range: 1.4-7.0 Basos 0 % (Normal) Eos 3 % (Normal) Monocytes 7 % (Normal) Lymphs 29 % (Normal) Neutrophils 61 % (Normal) Platelets 239 {x10E3/uL} (Normal) Range: 150-379 RDW 14.5 % (Normal) Range: 12.3-15.4 MCHC 32.4 g/dL (Normal) Range: 31.5-35.7 MCH 30.6 pg (Normal) Range: 26.6-33.0 MCV 95 fL (Normal) Range: 79-97 Hematocrit 41.1 % (Normal) Range: 37.5-51.0 Hemoglobin 13.3 g/dL (Normal) Range: 12.6-17.7 RBC 4.35 {x10E6/uL} (Normal) Range: 4.14-5.80 WBC 8.2 {x10E3/uL} (Normal) Range: 3.4-10.8 :35 PSA (PROSTATE SPECIFIC Comments: PATIENT WAS FASTINGPERFORMED BY: [facility] [facility] [id number] ANTIGEN) (V76.44) Prostate Specific Ag, <0.1 ng/mL (Normal) Range: 0.0-4.0 Serum Comments: Luis A ECLIA methodology. .According to the [place] [employer], Serum PSA shoulddecrease and remain at undetectable levels after radicalprostatectomy. The AUA defines biochemical recurrence as an initialPSA value 0.2 ng/mL or greater followed by a subsequent confirmatoryPSA value 0.2 ng/mL or greater.Values obtained with d ifferent assay methods or kits cannot be usedinterchangeably. Results cannot be interpreted as absolute evidenceof the presence or absence of malignant disease. 82-Tpu-749682:08 Blood Glucose , Office (33502) Blood Glucose , Office 107 (Normal) 58-Dyc-302240:08 HgA1C , Office (76824) HgA1C , Office 6.2 % (Normal) Range: 4.6 - 7.1 :05 Prothrombin Time w/INR Comments: Test performed at:[facility] [address] [place] [address] INR 2.4 (Normal) PROTIME 26.0 s (Abnormal) Range: 11.7-14.9 :29 Prothrombin Time w/INR Comments: Test performed at:[facility] [address] [place] [address] INR 2.8 (Normal) PROTIME 29.7 s (Abnormal) Range: 11.7-14.9 :35 Prothrombin Time w/INR Comments: Test performed at:[facility] [address] [place] [address] INR 2.1 (Normal) PROTIME 23.5 s (Abnormal) Range: 11.7-14.9 :48 HgA1C , Office (28056) HgA1C , Office 8.1 % (Abnormal) Range: 4.6 - 7.1 :48 Blood Glucose , Office (69657) Blood Glucose , Office 163 (Normal) :09 Microscopic Examination Comments: PATIENT WAS FASTINGPERFORMED BY: [facility]Egggrp[address] [facility] [id number] Bacteria Few (Normal) Mucus Threads Present (Normal) Epithelial Cells (non renal) 0-10 {/hpf} (Normal) Range: 0 - 10 RBC 0-2 {/hpf} (Normal) Range: 0 - 2 WBC 0-5 {/hpf} (Normal) Range: 0 - 5 :32 Prothrombin Time w/INR Comments: Test performed at:[facility] [address] [place] [address] INR 2.4 (Normal) PROTIME 26.0 s (Abnormal) Range: 11.7-14.9 :36 Prothrombin Time w/INR Comments: Test performed at:[facility] [address] [place] [address] INR 1.8 (Normal) PROTIME 21.0 s (Abnormal) Range: 11.7-14.9 :45 Prothrombin Time w/INR Comments: Test performed at:[facility] [address] [place] [address] INR 2.2 (Normal) PROTIME 24.6 s (Abnormal) Range: 11.7-14.9 :47 Prothrombin Time w/INR Comments: Test performed at:[facility] [address] [place] [address] INR 1.6 (Normal) PROTIME 19.3 s (Abnormal) Range: 11.7-14.9 :51 Prothrombin Time w/INR Comments: Test performed at:[facility] [address] [place] [address] INR 2.7 (Normal) PROTIME 28.5 s (Abnormal) Range: 11.7-14.9 :09 HgA1C , Office (64775) HgA1C , Office 5.9 % (Normal) Range: 4.6 - 7.1 :09 Blood Glucose , Office (65687) Blood Glucose , Office 174 (Normal) 58-Tdi-867922:57 CBC W/Diff, Automated Comments: Test performed at:[facility] [address] [place], [place] [address] Absolute Lymph 2.89 {X10_3/ul} (Normal) Range: 0.83-4.51 Absolute Neut 5.4 {X10_3/uL} (Normal) Range: 2.0-7.7 IM GRAN % 0.300 % (Normal) Range: 0.0-0.9 Comments: IG% - Immature Granulocytes (promyelocytes, myelocytes andmetamyelocytes) > 1% indicates that a LEFT SHIFT is Present. BASO% 0.3 % (Normal) Range: 0-1 EO% 2.7 % (Normal) Range: 0-5 MONO% 7.5 % (Normal) Range: 0-10 LY% 31.2 % (Normal) Range: 19-41 NEUT% 58.0 % (Normal) Range: 47-70 MPV 11.1 fL (Normal) Range: 6.2-12.0 PLT 213 K/mm3 (Normal) Range: 150-450 RDW SD 44.7 fL (Abnormal) Range: 35.1-43.9 RDW CV 13.5 % (Normal) Range: 11.6-14.6 MCHC 32.4 {g/gl} (Normal) Range: 32-36 MCH 29.4 pg (Normal) Range: 27.0-32.0 MCV 90.9 fL (Normal) Range: 80-94 HCT 42.9 % (Normal) Range: 40-54 HGB 13.9 g/dL (Normal) Range: 13.0-16.5 RBC 4.72 {M/mm3} (Normal) Range: 4.6-6.2 WBC 9.3 K/mm3 (Normal) Range: 4.4-11.0 [id number] Comprehensive Metabolic Profil Comments: Test performed at:[facility] [id number] [place] [address] GAP 6 (Normal) Range: 5-15 CO2 26.0 mmol/L (Normal) Range: 21.0-32.0 CL 106 mmol/L (Normal) Range: 98-107 K 4.4 mmol/L (Normal) Range: 3.5-5.1 NA 138 mmol/L (Normal) Range: 136-145 T BILI 0.70 mg/dL (Normal) Range: 0.00-4.00 ALT 27 U/L (Normal) Range: 12-78 ALK P 51 U/L (Normal) Range: 50-136 AST 19 U/L (Normal) Range: 15-37 CA 8.9 mg/dL (Normal) Range: 8.5-10.1 A/G 0.9 {RATIO} (Normal) Range: 0.9-2.4 GLOB 3.8 g/dL (Normal) Range: 2.7-4.2 ALB 3.6 g/dL (Normal) Range: 3.4-5.0 T PROT 7.4 g/dL (Normal) Range: 6.4-8.2 BUN/CRE 11.0 {RATIO} (Normal) Range: 10-20 CREAT,SERUM 1.0 mg/dL (Normal) Range: 0.8-1.3 BUN 11 mg/dL (Normal) Range: 7-18 GLU 196 mg/dL (Abnormal) Range: 70-110 Comments: Fasting Glucose result greater than or equal to 126 mg/dLsuggests DIABETES MELLITUS per A.D.A. criteria. [id number] Lipid Profile Comments: Test performed at:[facility] [id number] [place] [id number] VLDL 24 mg/dL (Normal) Range: 5-40 LDL 51 mg/dL (Normal) Range: 0-130 HDL 39 mg/dL (Abnormal) Comments: Reference Range HDL <40 mg/dL Low HDL Cholesterol HDL >or= 60 mg/dL High HDL Cholesterol TRIG 120 mg/dL (Normal) Range: 0-199 Comments: Serum Triglycerides Reference Interval Normal <150 mg/dL Borderline high 150 - 199 mg/dL High 200 - 499 mg/dL Very High > or = 500 mg/dL CHOL 114 mg/dL (Normal) Comments: <200 mg/dL Desirable 200-240 mg/dL Borderline >240 mg/dL High Risk 55-Ihd-210302:57 Prothrombin Time w/INR Comments: Test performed at:[facility] [address] [place] [address] INR 2.3 (Normal) PROTIME 25.0 s (Abnormal) Range: 11.7-14.9 43-Vcz-850970:57 Urinalysis, Complete Comments: How was Urine Obtained? CLEAN CATCHTest performed at:[facility] [address] [place] [address] MUCUS, URINE 0 SEEN {/hpf} (Normal) BACTERIA 0 SEEN {/hpf} (Normal) SQUAM EPI 0 SEEN {/hpf} (Normal) Range: 0-5 RBC-UA 0 SEEN {/hpf} (Normal) Range: 0-5 WBC 0 SEEN {/hpf} (Normal) Range: 0-5 LEUK ESTERASE Negative /ul (Normal) OCCULT BLOOD-UR 25 /ul (Abnormal) NITRITE UR Negative (Normal) UROBILI Normal mg/dL (Normal) PROT DIPSTX 30 mg/dL (Abnormal) pH UR 6.0 (Normal) Range: 5.0 - 8.0 SP.GR. DIPSTX 1.015 (Normal) Range: 1.002-1.030 KETONE UR Negative mg/dL (Normal) BILIRUBIN URINE Negative mg/dL (Normal) GLUCOSE, UR Normal mg/dL (Normal) CLARITY Sl. Cloudy (Normal) COLOR Yellow (Normal) :57 Vitamin D,25 Hydroxy Comments: Test performed at:[facility] [address] [place] [address] Vitamin D 25-OH 29.7 ng/mL (Normal) Comments: Vitamin D 25(OH) Status Range Deficiency <20 ng/mL (50nmol/L) Insuffciency 20 - 30 ng/mL (50 - 75 nmol/L) Sufficiency 30 - 100 ng/mL (75 - 250 nmol/L) Toxicity >100 ng/mL (>250 nmol/L) :52 PT INR 2.7 (Normal) PTP 28.8 s (Abnormal) Range: 11.7-14.9 :20 PT INR 2.8 (Normal) PTP 29.6 s (Abnormal) Range: 11.7-14.9 :54 PT INR 2.3 (Normal) PTP 25.4 s (Abnormal) Range: 11.7-14.9 :09 CALCIFIDIOL (94370) VIT D 25 Comments: PATIENT WAS FASTINGPERFORMED BY: [facility] [facility] [address] [id number] Vitamin D, 25-Hydroxy 36.0 ng/mL (Normal) Range: 30.0-100.0 Comments: Vitamin D deficiency has been defined by the [place] ofMedicine and an Endocrine Society practice guideline as alevel of serum 25-OH vitamin D less than 20 ng/mL (1,2).The Endocrine Society went on to further define vitamin Dinsufficiency as a level between 21 and 29 ng/mL (2).1. IOM ([place] of Medicine). 2010. Dietary reference intakes for calcium and D. [place]: The National Academies Press.2. Antionette MF, Emam SUÁREZ, Solsi FERNÁNDEZ et al. Evaluation, treatment, and prevention of vitamin D deficiency: an Endocrine Society clinical practice guideline. JCEM. 2010; 96(7):5311-30. :09 URINALYSIS, W/ MICRO (90623) Comments: PATIENT WAS FASTINGPERFORMED BY: [facility][id number] [facility] [id number] Microscopic Examination See below: (Normal) Comments: Microscopic was indicated and was performed. Nitrite, Urine Negative (Normal) Urobilinogen,Semi-Qn 0.2 mg/dL (Normal) Range: 0.0-1.9 Bilirubin Negative (Normal) Occult Blood Negative (Normal) Ketones Negative (Normal) Glucose Negative (Normal) Protein 1+ (Abnormal) WBC Esterase Negative (Normal) Appearance Clear (Normal) Urine-Color Yellow (Normal) pH 6.5 (Normal) Range: 5.0-7.5 Specific [place] 1.017 (Normal) Range: 1.005-1.030 :09 METABOLIC PANEL, COMPREHENSIVE Comments: PATIENT WAS FASTINGPERFORMED BY: [facility][id number] [facility] [id number] (82288) ALT (SGPT) 18 [iU]/L (Normal) Range: 0-44 AST (SGOT) 20 [iU]/L (Normal) Range: 0-40 Alkaline Phosphatase, S 59 [iU]/L (Normal) Range: 39-117 Bilirubin, Total 0.9 mg/dL (Normal) Range: 0.0-1.2 A/G Ratio 1.7 (Normal) Range: 1.1-2.5 Globulin, Total 2.5 g/dL (Normal) Range: 1.5-4.5 Albumin, Serum 4.3 g/dL (Normal) Range: 3.5-4.8 Protein, Total, Serum 6.8 g/dL (Normal) Range: 6.0-8.5 Calcium, Serum 9.4 mg/dL (Normal) Range: 8.6-10.2 Carbon Dioxide, Total 21 mmol/L (Normal) Range: 18-29 Chloride, Serum 99 mmol/L (Normal) Range: 97-108 Potassium, Serum 4.5 mmol/L (Normal) Range: 3.5-5.2 Sodium, Serum 138 mmol/L (Normal) Range: 134-144 BUN/Creatinine Ratio 16 (Normal) Range: 10-22 eGFR If Africn Am 99 mL/min/1.73 (Normal) eGFR If NonAfricn Am 86 mL/min/1.73 (Normal) Creatinine, Serum 0.88 mg/dL (Normal) Range: 0.76-1.27 BUN 14 mg/dL (Normal) Range: 8-27 Glucose, Serum 186 mg/dL (Abnormal) Range: 65-99 1-Oln-355561:09 LIPID PANEL (35090) Comments: PATIENT WAS FASTINGPERFORMED BY: [employer] [id number] [facility] [id number] LDL/HDL Ratio 1.4 {ratio_units} (Normal) Range: 0.0-3.6 Comments: LDL/HDL Ratio Men Women 1/2 Avg.Risk 1.0 1.5 Av g.Risk 3.6 3.2 2X Avg.Risk 6.2 5.0 3X Avg.Risk 8.0 6.1 LDL Cholesterol Calc 52 mg/dL (Normal) Range: 0-99 VLDL Cholesterol Wallace 21 mg/dL (Normal) Range: 5-40 HDL Cholesterol 37 mg/dL (Abnormal) Comments: According to ATP-III Guidelines, HDL-C >59 mg/dL is considered anegative risk factor for CHD. Triglycerides 107 mg/dL (Normal) Range: 0-149 Cholesterol, Total 110 mg/dL (Normal) Range: 100-199 2-Nyb-631342:09 CBC W/AUTO DIFF WBC Comments: PATIENT WAS FASTINGPERFORMED BY: [employer] [id number] [facility] [id number] Information: [id number] (58705) Immature Grans (Abs) 0.0 {x10E3/uL} (Normal) Range: 0.0-0.1 Immature Granulocytes 0 % (Normal) Baso (Absolute) 0.0 {x10E3/uL} (Normal) Range: 0.0-0.2 Eos (Absolute) 0.2 {x10E3/uL} (Normal) Range: 0.0-0.4 Monocytes(Absolute) 0.9 {x10E3/uL} (Normal) Range: 0.1-0.9 Lymphs (Absolute) 2.6 {x10E3/uL} (Normal) Range: 0.7-3.1 Neutrophils (Absolute) 6.7 {x10E3/uL} (Normal) Range: 1.4-7.0 Basos 0 % (Normal) Eos 1 % (Normal) Monocytes 8 % (Normal) Lymphs 26 % (Normal) Neutrophils 65 % (Normal) Platelets 215 {x10E3/uL} (Normal) Range: 150-379 RDW 14.5 % (Normal) Range: 12.3-15.4 MCHC 33.6 g/dL (Normal) Range: 31.5-35.7 MCH 30.3 pg (Normal) Range: 26.6-33.0 MCV 90 fL (Normal) Range: 79-97 Hematocrit 38.7 % (Normal) Range: 37.5-51.0 Hemoglobin 13.0 g/dL (Normal) Range: 12.6-17.7 RBC 4.29 {x10E6/uL} (Normal) Range: 4.14-5.80 WBC 10.4 {x10E3/uL} (Normal) Range: 3.4-10.8 :16 HgA1C , Office (38944) HgA1C , Office 7.2 % (Abnormal) Range: 4.6 - 7.1 :16 Blood Glucose , Office (46961) Blood Glucose , Office 190 (Normal) :42 PT INR 3.0 (Normal) PTP 30.9 s (Abnormal) Range: 11.7-14.9 :39 PT INR 2.4 (Normal) PTP 26.1 s (Abnormal) Range: 11.7-14.9 Comments: Please note revised PROTIME reference range evwrtxyug18/14/15. :31 PT INR 2.4 (Normal) PTP 24.8 s (Abnormal) Range: 11.9-14.4 :19 Blood Glucose , Office (12221) Blood Glucose , Office 148 (Normal) :19 HgA1C , Office (91644) HgA1C , Office 6.9 % (Normal) Range: 4.6 - 7.1 76-Pyb-344769:07 CBC with manual diff Comments: PATIENT NOT FASTINGPERFORMED BY: ALFONSO [facility][id number] [facility] [id number] Information: [id number] ORDER NO DRAW F EE (55923) Immature Grans (Abs) 0.0 {x10E3/uL} (Normal) Range: 0.0-0.1 Immature Granulocytes 0 % (Normal) Range: 0-2 Baso (Absolute) 0.1 {x10E3/uL} (Normal) Range: 0.0-0.2 Eos (Absolute) 0.9 {x10E3/uL} (Abnormal) Range: 0.0-0.4 Monocytes(Absolute) 0.4 {x10E3/uL} (Normal) Range: 0.1-0.9 Lymphs (Absolute) 2.6 {x10E3/uL} (Normal) Range: 0.7-3.1 Neutrophils (Absolute) 6.5 {x10E3/uL} (Normal) Range: 1.4-7.0 Basos 1 % (Normal) Range: 0-3 Eos 8 % (Abnormal) Range: 0-5 Monocytes 4 % (Normal) Range: 4-12 Lymphs 25 % (Normal) Range: 14-46 Neutrophils 62 % (Normal) Range: 40-74 Platelets 267 {x10E3/uL} (Normal) Range: 155-379 RDW 14.8 % (Normal) Range: 12.3-15.4 MCHC 33.7 g/dL (Normal) Range: 31.5-35.7 MCH 30.6 pg (Normal) Range: 26.6-33.0 MCV 91 fL (Normal) Range: 79-97 Hematocrit 41.0 % (Normal) Range: 37.5-51.0 Hemoglobin 13.8 g/dL (Normal) Range: 12.6-17.7 RBC 4.51 {x10E6/uL} (Normal) Range: 4.14-5.80 WBC 10.4 {x10E3/uL} (Normal) Range: 3.4-10.8 6-Ixn-440794:22 PT INR 2.2 (Normal) PTP 22.7 s (Abnormal) Range: 11.9-14.4 :47 CBC, Platelets & Auto Diff Comments: PATIENT NOT FASTINGPERFORMED BY: [id number] [facility] [id number] Information: [id number] (86168) Immature Grans (Abs) 0.0 {x10E3/uL} (Normal) Range: 0.0-0.1 Immature Granulocytes 0 % (Normal) Range: 0-2 Baso (Absolute) 0.0 {x10E3/uL} (Normal) Range: 0.0-0.2 Eos (Absolute) 0.3 {x10E3/uL} (Normal) Range: 0.0-0.4 Monocytes(Absolute) 0.8 {x10E3/uL} (Normal) Range: 0.1-0.9 Lymphs (Absolute) 3.3 {x10E3/uL} (Abnormal) Range: 0.7-3.1 Neutrophils (Absolute) 6.9 {x10E3/uL} (Normal) Range: 1.4-7.0 Basos 0 % (Normal) Range: 0-3 Eos 3 % (Normal) Range: 0-5 Monocytes 7 % (Normal) Range: 4-12 Lymphs 29 % (Normal) Range: 14-46 Neutrophils 61 % (Normal) Range: 40-74 Platelets 279 {x10E3/uL} (Normal) Range: 155-379 RDW 15.2 % (Normal) Range: 12.3-15.4 MCHC 32.7 g/dL (Normal) Range: 31.5-35.7 MCH 29.5 pg (Normal) Range: 26.6-33.0 MCV 90 fL (Normal) Range: 79-97 Hematocrit 44.4 % (Normal) Range: 37.5-51.0 Hemoglobin 14.5 g/dL (Normal) Range: 12.6-17.7 RBC 4.92 {x10E6/uL} (Normal) Range: 4.14-5.80 WBC 11.4 {x10E3/uL} (Abnormal) Range: 3.4-10.8 01-Spt-960375:18 METABOLIC PANEL, Comments: PATIENT NOT FASTINGPERFORMED BY: [facility][id number] [facility] [id number] Information: [id number] COMPREHENSIVE (00368) ALT (SGPT) 19 [iU]/L (Normal) Range: 0-44 AST (SGOT) 21 [iU]/L (Normal) Range: 0-40 Alkaline Phosphatase, S 44 [iU]/L (Normal) Range: 39-117 Bilirubin, Total 0.7 mg/dL (Normal) Range: 0.0-1.2 A/G Ratio 1.7 (Normal) Range: 1.1-2.5 Globulin, Total 2.6 g/dL (Normal) Range: 1.5-4.5 Albumin, Serum 4.3 g/dL (Normal) Range: 3.5-4.8 Protein, Total, Serum 6.9 g/dL (Normal) Range: 6.0-8.5 Calcium, Serum 9.8 mg/dL (Normal) Range: 8.6-10.2 Carbon Dioxide, Total 23 mmol/L (Normal) Range: 19-28 Chloride, Serum 103 mmol/L (Normal) Range: 97-108 Potassium, Serum 4.5 mmol/L (Normal) Range: 3.5-5.2 Sodium, Serum 141 mmol/L (Normal) Range: 134-144 BUN/Creatinine Ratio 16 (Normal) Range: 10-22 eGFR If Africn Am 102 mL/min/1.73 (Normal) eGFR If NonAfricn Am 89 mL/min/1.73 (Normal) Creatinine, Serum 0.83 mg/dL (Normal) Range: 0.76-1.27 BUN 13 mg/dL (Normal) Range: 8-27 Glucose, Serum 122 mg/dL (Abnormal) Range: 65-99 18-Qjw-855528:18 LIPID PANEL (68864) Comments: PATIENT NOT FASTINGPERFORMED BY: [facility][id number] [facility] [id number] LDL/HDL Ratio 3.5 {ratio_units} (Normal) Range: 0.0-3.6 LDL Cholesterol Calc 125 mg/dL (Abnormal) Range: 0-99 VLDL Cholesterol Wallace 34 mg/dL (Normal) Range: 5-40 HDL Cholesterol 36 mg/dL (Abnormal) Comments: According to ATP-III Guidelines, HDL-C >59 mg/dL is considered anegative risk factor for CHD. Triglycerides 168 mg/dL (Abnormal) Range: 0-149 Cholesterol, Total 195 mg/dL (Normal) Range: 100-199 25-Jxb-186765:18 CALCIFIDIOL (85349) VIT D 25 Comments: PATIENT NOT FASTINGPERFORMED BY: [facility] [facility] [place] [id number] Vitamin D, 25-Hydroxy 29.9 ng/mL (Abnormal) Range: 30.0-100.0 Comments: Vitamin D deficiency has been defined by the [place] ofBarn[facility] Hospitalcine and an Endocrine Society practice guideline as alevel of serum 25-OH vitamin D less than 20 ng/mL (1,2).The Endocrine Society went on to further define vitamin Dinsufficiency as a level between 21 and 29 ng/mL (2).1. IOM ([place] of Medicine). 2010. Dietary reference intakes for calcium and D. [place]: The National Academies Press.2. Antionette MF, Emma SUÁREZ, Solis FERNÁNDEZ, et al. Evaluation, treatment, and prevention of vitamin D deficiency: an Endocrine Society clinical practice guideline. JCEM. 2010; 96(7):1911-30. 31-Cex-900203:11 HgA1C , Office (41574) HgA1C , Office 6.7 % (Normal) Range: 4.6 - 7.1 47-Htc-707230:24 METABOLIC PANEL, Comments: PATIENT WAS FASTINGPERFORMED BY: [facility] [facility] [address] [place] [id number] Information: [id number] COMPREHENSIVE (42677) ALT (SGPT) 18 [iU]/L (Normal) Range: 0-44 AST (SGOT) 20 [iU]/L (Normal) Range: 0-40 Alkaline Phosphatase, S 50 [iU]/L (Normal) Range: 39-117 Bilirubin, Total 0.7 mg/dL (Normal) Range: 0.0-1.2 A/G Ratio 1.6 (Normal) Range: 1.1-2.5 Globulin, Total 2.6 g/dL (Normal) Range: 1.5-4.5 Albumin, Serum 4.2 g/dL (Normal) Range: 3.5-4.8 Protein, Total, Serum 6.8 g/dL (Normal) Range: 6.0-8.5 Calcium, Serum 9.6 mg/dL (Normal) Range: 8.6-10.2 Carbon Dioxide, Total 21 mmol/L (Normal) Range: 19-28 Chloride, Serum 103 mmol/L (Normal) Range: 97-108 Potassium, Serum 4.4 mmol/L (Normal) Range: 3.5-5.2 Sodium, Serum 140 mmol/L (Normal) Range: 134-144 BUN/Creatinine Ratio 16 (Normal) Range: 10-22 eGFR If Africn Am 99 mL/min/1.73 (Normal) eGFR If NonAfricn Am 86 mL/min/1.73 (Normal) Creatinine, Serum 0.89 mg/dL (Normal) Range: 0.76-1.27 BUN 14 mg/dL (Normal) Range: 8-27 Glucose, Serum 171 mg/dL (Abnormal) Range: 65-99 41-Nif-913786:24 LIPID PANEL (02844) Comments: PATIENT WAS FASTINGPERFORMED BY: [facility] [id number]; non-emergent and pt has apt 01/12/14 to review. LDL/HDL Ratio 1.2 {ratio_units} (Normal) Range: 0.0-3.6 LDL Cholesterol Calc 43 mg/dL (Normal) Range: 0-99 VLDL Cholesterol Wallace 31 mg/dL (Normal) Range: 5-40 HDL Cholesterol 35 mg/dL (Abnormal) Comments: According to ATP-III Guidelines, HDL-C >59 mg/dL is considered anegative risk factor for CHD. Triglycerides 156 mg/dL (Abnormal) Range: 0-149 Cholesterol, Total 109 mg/dL (Normal) Range: 100-199 15-Hgg-277955:14 Blood Glucose , Office (79869) Blood Glucose , Office 146 (Normal) 47-Lgq-561612:14 HgA1C , Office (59641) HgA1C , Office 6.8 % (Normal) Range: 4.6 - 7.1 20-Ygd-834199:10 CBC (Auto) (12405) Comments: PATIENT WAS FASTINGPERFORMED BY: [facility]Car[facility] [id number] Platelets 224 {x10E3/uL} (Normal) Range: 155-379 RDW 15.0 % (Normal) Range: 12.3-15.4 MCHC 33.0 g/dL (Normal) Range: 31.5-35.7 MCH 28.8 pg (Normal) Range: 26.6-33.0 MCV 87 fL (Normal) Range: 79-97 Hematocrit 40.3 % (Normal) Range: 37.5-51.0 Hemoglobin 13.3 g/dL (Normal) Range: 12.6-17.7 RBC 4.62 {x10E6/uL} (Normal) Range: 4.14-5.80 WBC 9.5 {x10E3/uL} (Normal) Range: 3.4-10.8 52-Lci-765000:10 Metabolic Panel, Comments: PATIENT WAS FASTINGPERFORMED BY: [facility] [facility] [place] [id number] Information: [id number] Comprehensive (67734) ALT (SGPT) 22 [iU]/L (Normal) Range: 0-44 Alkaline Phosphatase, S 47 [iU]/L (Normal) Range: 39-117 AST (SGOT) 19 [iU]/L (Normal) Range: 0-40 Bilirubin, Total 0.9 mg/dL (Normal) Range: 0.0-1.2 A/G Ratio 1.5 (Normal) Range: 1.1-2.5 Globulin, Total 2.9 g/dL (Normal) Range: 1.5-4.5 Albumin, Serum 4.4 g/dL (Normal) Range: 3.5-4.8 Protein, Total, Serum 7.3 g/dL (Normal) Range: 6.0-8.5 Calcium, Serum 9.7 mg/dL (Normal) Range: 8.6-10.2 Carbon Dioxide, Total 21 mmol/L (Normal) Range: 19-28 Chloride, Serum 103 mmol/L (Normal) Range: 97-108 Potassium, Serum 4.5 mmol/L (Normal) Range: 3.5-5.2 Sodium, Serum 140 mmol/L (Normal) Range: 134-144 BUN/Creatinine Ratio 15 (Normal) Range: 10-22 eGFR If Africn Am 105 mL/min/1.73 (Normal) eGFR If NonAfricn Am 91 mL/min/1.73 (Normal) Creatinine, Serum 0.79 mg/dL (Normal) Range: 0.76-1.27 BUN 12 mg/dL (Normal) Range: 8-27 Glucose, Serum 168 mg/dL (Abnormal) Range: 65-99 43-Euc-885816:10 Lipid Panel (33115) Comments: PATIENT WAS FASTINGPERFORMED BY: [facility] [address] [facility] [id number] LDL/HDL Ratio 3.8 {ratio_units} (Abnormal) Range: 0.0-3.6 LDL Cholesterol Calc 135 mg/dL (Abnormal) Range: 0-99 VLDL Cholesterol Wallace 26 mg/dL (Normal) Range: 5-40 HDL Cholesterol 36 mg/dL (Abnormal) Comments: According to ATP-III Guidelines, HDL-C >59 mg/dL is considered anegative risk factor for CHD. Triglycerides 131 mg/dL (Normal) Range: 0-149 Cholesterol, Total 197 mg/dL (Normal) Range: 100-199 :10 CALCIFIDIOL (97305) VIT D 25 Comments: PATIENT WAS FASTINGPERFORMED BY: [facility] Ciyqyw[address] [facility] [id number] Vitamin D, 25-Hydroxy 35.5 ng/mL (Normal) Range: 30.0-100.0 Comments: Vitamin D deficiency has been defined by the [place] ofMedicine and an Endocrine Society practice guideline as alevel of serum 25-OH vitamin D less than 20 ng/mL (1,2).The Endocrine Society went on to further define vitamin Dinsufficiency as a level between 21 and 29 ng/mL (2).1. IOM ([place] of Medicine). 2010. Dietary reference intakes for calcium and D. [place]: The National Academies Press.2. Antionette MF, Emam [place], Solis FERNÁNDEZ, et al. Evaluation, treatment, and prevention of vitamin D deficiency: an Endocrine Society clinical practice guideline. JCEM. 2010; 96(7):1911-30. :03 HgA1C , Office (11974) HgA1C , Office 6.3 % (Normal) Range: 4.6 - 7.1 :03 Blood Glucose , Office (86565) Blood Glucose , Office 93 (Normal) 73-Anp-001079:27 Sputum Culture (23115) Comments: PATIENT NOT FASTINGPERFORMED BY: [facility][id number] [facility] [id number] Information: [id number] Result 1 RRF (Normal) Comments: Routine respiratory mariano Lower Respiratory Culture Final report (Normal) 72-Wig-415003:34 HgA1C , Office (65322) HgA1C , Office 8.4 % (Abnormal) Range: 4.6 - 7.1 30-Tva-521518:34 Blood Glucose , Office (54926) Blood Glucose , Office 153 (Normal) 97-Gnd-243251:35 CBC with manual diff Comments: PATIENT WAS FASTINGPERFORMED BY: [facility][id number] [facility] [id number] Information: [id number] (01810) Immature Grans (Abs) 0.0 {x10E3/uL} (Normal) Range: 0.0-0.1 Immature Granulocytes 0 % (Normal) Range: 0-2 Baso (Absolute) 0.0 {x10E3/uL} (Normal) Range: 0.0-0.2 Eos (Absolute) 0.4 {x10E3/uL} (Normal) Range: 0.0-0.4 Monocytes(Absolute) 0.4 {x10E3/uL} (Normal) Range: 0.1-1.0 Lymphs (Absolute) 3.2 {x10E3/uL} (Normal) Range: 0.7-4.5 Neutrophils (Absolute) 4.1 {x10E3/uL} (Normal) Range: 1.8-7.8 Basos 0 % (Normal) Range: 0-3 Eos 4 % (Normal) Range: 0-7 Monocytes 5 % (Normal) Range: 4-13 Lymphs 40 % (Normal) Range: 14-46 Neutrophils 51 % (Normal) Range: 40-74 Platelets 258 {x10E3/uL} (Normal) Range: 140-415 RDW 14.6 % (Normal) Range: 12.3-15.4 MCHC 33.0 g/dL (Normal) Range: 31.5-35.7 MCH 30.1 pg (Normal) Range: 26.6-33.0 MCV 91 fL (Normal) Range: 79-97 Hematocrit 38.5 % (Normal) Range: 37.5-51.0 Hemoglobin 12.7 g/dL (Normal) Range: 12.6-17.7 RBC 4.22 {x10E6/uL} (Normal) Range: 4.14-5.80 WBC 8.1 {x10E3/uL} (Normal) Range: 4.0-10.5 :35 Metabolic Panel, Comprehensive Comments: PATIENT WAS FASTINGPERFORMED BY: [facility][id number] [facility] [id number] (57909) ALT (SGPT) 17 [iU]/L (Normal) Range: 0-44 AST (SGOT) 20 [iU]/L (Normal) Range: 0-40 Alkaline Phosphatase, S 39 [iU]/L (Normal) Range: 25-160 Bilirubin, Total 0.6 mg/dL (Normal) Range: 0.0-1.2 A/G Ratio 1.7 (Normal) Range: 1.1-2.5 Globulin, Total 2.6 g/dL (Normal) Range: 1.5-4.5 Albumin, Serum 4.4 g/dL (Normal) Range: 3.5-4.8 Protein, Total, Serum 7.0 g/dL (Normal) Range: 6.0-8.5 Calcium, Serum 10.2 mg/dL (Normal) Range: 8.6-10.2 Carbon Dioxide, Total 22 mmol/L (Normal) Range: 20-32 Chloride, Serum 103 mmol/L (Normal) Range: 97-108 Potassium, Serum 4.6 mmol/L (Normal) Range: 3.5-5.2 Sodium, Serum 140 mmol/L (Normal) Range: 134-144 BUN/Creatinine Ratio 14 (Normal) Range: 10-22 eGFR If Africn Am 105 mL/min/1.73 (Normal) eGFR If NonAfricn Am 91 mL/min/1.73 (Normal) Creatinine, Serum 0.80 mg/dL (Normal) Range: 0.76-1.27 BUN 11 mg/dL (Normal) Range: 8-27 Glucose, Serum 138 mg/dL (Abnormal) Range: 65-99 :35 Lipid Panel (83141) Comments: PATIENT WAS FASTINGPERFORMED BY: [facility] [facility] [place] [id number] LDL/HDL Ratio 2.1 {ratio_units} (Normal) Range: 0.0-3.6 LDL Cholesterol Calc 93 mg/dL (Normal) Range: 0-99 HDL Cholesterol 44 mg/dL (Normal) Comments: According to ATP-III Guidelines, HDL-C >59 mg/dL is considered anegative risk factor for CHD. Triglycerides 151 mg/dL (Abnormal) Range: 0-149 VLDL Cholesterol Wallace 30 mg/dL (Normal) Range: 5-40 Cholesterol, Total 167 mg/dL (Normal) Range: 100-199 99-Hwp-566369:15 MICROALBUMIN: CREATININE Comments: PATIENT NOT FASTINGPERFORMED BY: [address] [id number] Information: [id number] RATIO (65473) AND (27568) Microalb/Creat Ratio 51.5 {mg/g_creat} (Abnormal) Range: 0.0-30.0 Microalbumin, Urine 72.2 ug/mL (Abnormal) Range: 0.0-17.0 Creatinine, Urine 140.1 mg/dL (Normal) Range: 22.0-328.0 81-Abg-501571:06 Blood Glucose , Office (92122) Blood Glucose , Office 177 (Normal) 64-Aue-224027:06 HgA1C , Office (27512) HgA1C , Office 6.2 % (Normal) Range: 4.6 - 7.1 47-Clq-469559:34 CBC with manual diff Comments: PATIENT WAS FASTINGPERFORMED BY: [place] [id number] [facility] [id number] Information: [id number] (87947) Immature Grans (Abs) 0.0 {x10E3/uL} (Normal) Range: 0.0-0.1 Immature Granulocytes 0 % (Normal) Range: 0-2 Baso (Absolute) 0.0 {x10E3/uL} (Normal) Range: 0.0-0.2 Eos (Absolute) 0.3 {x10E3/uL} (Normal) Range: 0.0-0.4 Monocytes(Absolute) 0.9 {x10E3/uL} (Normal) Range: 0.1-1.0 Lymphs (Absolute) 2.2 {x10E3/uL} (Normal) Range: 0.7-4.5 Neutrophils (Absolute) 4.8 {x10E3/uL} (Normal) Range: 1.8-7.8 Basos 1 % (Normal) Range: 0-3 Eos 4 % (Normal) Range: 0-7 Monocytes 11 % (Normal) Range: 4-13 Lymphs 27 % (Normal) Range: 14-46 Neutrophils 57 % (Normal) Range: 40-74 Platelets 221 {x10E3/uL} (Normal) Range: 140-415 RDW 13.7 % (Normal) Range: 12.3-15.4 MCHC 33.8 g/dL (Normal) Range: 31.5-35.7 MCH 30.3 pg (Normal) Range: 26.6-33.0 MCV 90 fL (Normal) Range: 79-97 Hematocrit 43.2 % (Normal) Range: 37.5-51.0 Hemoglobin 14.6 g/dL (Normal) Range: 12.6-17.7 RBC 4.82 {x10E6/uL} (Normal) Range: 4.14-5.80 WBC 8.3 {x10E3/uL} (Normal) Range: 4.0-10.5 [id number] Metabolic Panel, Comprehensive Comments: PATIENT WAS FASTINGPERFORMED BY: [facility] [place] [id number] ([id number]) ALT (SGPT) 22 [iU]/L (Normal) Range: 0-44 AST (SGOT) 23 [iU]/L (Normal) Range: 0-40 Alkaline Phosphatase, S 48 [iU]/L (Normal) Range: 25-160 Bilirubin, Total 0.7 mg/dL (Normal) Range: 0.0-1.2 A/G Ratio 1.5 (Normal) Range: 1.1-2.5 Globulin, Total 3.0 g/dL (Normal) Range: 1.5-4.5 Albumin, Serum 4.4 g/dL (Normal) Range: 3.5-4.8 Protein, Total, Serum 7.4 g/dL (Normal) Range: 6.0-8.5 Calcium, Serum 10.0 mg/dL (Normal) Range: 8.6-10.2 Carbon Dioxide, Total 22 mmol/L (Normal) Range: 20-32 Chloride, Serum 102 mmol/L (Normal) Range: 97-108 Potassium, Serum 4.2 mmol/L (Normal) Range: 3.5-5.2 Sodium, Serum 141 mmol/L (Normal) Range: 134-144 BUN/Creatinine Ratio 12 (Normal) Range: 10-22 eGFR If Africn Am 91 mL/min/1.73 (Normal) eGFR If NonAfricn Am 79 mL/min/1.73 (Normal) Creatinine, Serum 0.97 mg/dL (Normal) Range: 0.76-1.27 BUN 12 mg/dL (Normal) Range: 8-27 Glucose, Serum 178 mg/dL (Abnormal) Range: 65-99 [id number] Lipid Panel ([id number]) Comments: PATIENT WAS FASTINGPERFORMED BY: [facility] [id number] LDL/HDL Ratio 2.3 {ratio_units} (Normal) Range: 0.0-3.6 LDL Cholesterol Calc 95 mg/dL (Normal) Range: 0-99 VLDL Cholesterol Wallace 29 mg/dL (Normal) Range: 5-40 HDL Cholesterol 41 mg/dL (Normal) Comments: According to ATP-III Guidelines, HDL-C >59 mg/dL is considered anegative risk factor for CHD. Triglycerides 146 mg/dL (Normal) Range: 0-149 Cholesterol, Total 165 mg/dL (Normal) Range: 100-199 [id number] Hemoglobin Glyclated (HGB Comments: PATIENT WAS FASTINGPERFORMED BY: [id number] [facility] [id number] Information: [id number] A1C) ([id number]) Hemoglobin A1c 6.4 % (Abnormal) Range: 4.8-5.6 Comments: . Increased risk for diabetes: 5.7 - 6.4 Diabetes: >6.4 Glycemic control for adults with diabetes: <7.0 [id number] CALCIFIDIOL ([id number]) VIT D 25 Comments: PATIENT WAS FASTINGPERFORMED BY: [id number] [facility] [id number] Vitamin D, 25-Hydroxy 37.1 ng/mL (Normal) Range: 30.0-100.0 Comments: Vitamin D deficiency has been defined by the [facility] and an Endocrine Society practice guideline as alevel of serum 25-OH vitamin D less than 20 ng/mL (1,2).The Endocrine Society went on to further define vitamin Dinsufficiency as a level between 21 and 29 ng/mL (2).1. IOM ([place] of Medicine). 2010. Dietary reference intakes for calcium and D. [place]: The National AcademPeerMe Press.2. Antionette MF, Emma SUÁREZ, Solis FERNÁNDEZ, et al. Evaluation, treatment, and prevention of vitamin D deficiency: an Endocrine Society clinical practice guideline. [facility]. 2010; 96(7):1911-30. 51-Xko-504540:00 T4, FREE (THYROXINE) (01629) Comments: PATIENT WAS FASTINGPERFORMED BY: [facility] Ftblor[address] [facility] [id number] T4,Free(Direct) 1.15 ng/dL (Normal) Range: 0.82-1.77 39-Vvh-390388:00 TSH (23584) Comments: PATIENT WAS FASTINGPERFORMED BY: [facility] [facility] [id number] TSH 0.792 {uIU/mL} (Normal) Range: 0.450-4.500 43-Uix-297368:00 Vitamin B-12 (cyanocobalamin) Comments: PATIENT WAS FASTINGPERFORMED BY: [facility] [facility] [id number] (53983) Vitamin B12 709 pg/mL (Normal) Range: 211-946 17-Zux-594174:25 Microscopic Examination Comments: PATIENT WAS FASTINGPERFORMED BY: [facility] [facility] [id number] Bacteria Few (Normal) Mucus Threads Present (Normal) Epithelial Cells (non renal) 0-10 {/hpf} (Normal) Range: 0 - 10 RBC 0-3 {/hpf} (Normal) Range: 0 - 3 WBC 0-5 {/hpf} (Normal) Range: 0 - 5 14-Rib-376730:25 Metabolic Panel, Basic Comments: PATIENT WAS FASTINGPERFORMED BY: [employer] [facility] [id number] (21531) Calcium, Serum 9.7 mg/dL (Normal) Range: 8.6-10.2 Carbon Dioxide, Total 21 mmol/L (Normal) Range: 20-32 Chloride, Serum 104 mmol/L (Normal) Range: 97-108 Potassium, Serum 4.6 mmol/L (Normal) Range: 3.5-5.2 Sodium, Serum 142 mmol/L (Normal) Range: 134-144 BUN/Creatinine Ratio 14 (Normal) Range: 10-22 eGFR If Africn Am 109 mL/min/1.73 (Normal) BUN 10 mg/dL (Normal) Range: 8-27 Creatinine, Serum 0.74 mg/dL (Abnormal) Range: 0.76-1.27 eGFR If NonAfricn Am 94 mL/min/1.73 (Normal) Glucose, Serum 141 mg/dL (Abnormal) Range: 65-99 87-Wkd-791532:25 URINALYSIS, W/ MICRO (07585) Comments: PATIENT WAS FASTINGPERFORMED BY: [employer] [facility] [id number] Microscopic Examination See below: (Normal) Nitrite, Urine Negative (Normal) Bilirubin Negative (Normal) Urobilinogen,Semi-Qn 0.2 mg/dL (Normal) Range: 0.0-1.9 Occult Blood Trace (Abnormal) Ketones Negative (Normal) Glucose Negative (Normal) Protein Trace (Normal) WBC Esterase Negative (Normal) Appearance Clear (Normal) Urine-Color Yellow (Normal) pH 6.0 (Normal) Range: 5.0-7.5 Specific [place] 1.017 (Normal) Range: 1.005-1.030 99-Shn-857609:25 CBC WITH MANUAL DIFF Comments: PATIENT WAS FASTINGPERFORMED BY: [facility] [facility] [place] [id number] Information: [id number] (04551) Immature Grans (Abs) 0.0 {x10E3/uL} (Normal) Range: 0.0-0.1 Immature Granulocytes 0 % (Normal) Range: 0-2 Baso (Absolute) 0.0 {x10E3/uL} (Normal) Range: 0.0-0.2 Eos (Absolute) 0.2 {x10E3/uL} (Normal) Range: 0.0-0.4 Monocytes(Absolute) 0.5 {x10E3/uL} (Normal) Range: 0.1-1.0 Lymphs (Absolute) 3.5 {x10E3/uL} (Normal) Range: 0.7-4.5 Neutrophils (Absolute) 5.2 {x10E3/uL} (Normal) Range: 1.8-7.8 Basos 0 % (Normal) Range: 0-3 Eos 2 % (Normal) Range: 0-7 Monocytes 6 % (Normal) Range: 4-13 Lymphs 37 % (Normal) Range: 14-46 Neutrophils 55 % (Normal) Range: 40-74 Platelets 254 {x10E3/uL} (Normal) Range: 140-415 RDW 13.9 % (Normal) Range: 12.3-15.4 MCHC 33.9 g/dL (Normal) Range: 31.5-35.7 MCH 30.4 pg (Normal) Range: 26.6-33.0 MCV 90 fL (Normal) Range: 79-97 Hematocrit 43.7 % (Normal) Range: 37.5-51.0 Hemoglobin 14.8 g/dL (Normal) Range: 12.6-17.7 RBC 4.87 {x10E6/uL} (Normal) Range: 4.14-5.80 WBC 9.5 {x10E3/uL} (Normal) Range: 4.0-10.5 :25 HgA1C , Office (56597) HgA1C , Office 6.3 % (Normal) Range: 4.6 - 7.1 :25 Blood Glucose , Office (24592) Blood Glucose , Office 127 (Normal) 14-Izg-604769:35 CALCIFIDIOL (98096) VIT D 25 Comments: PATIENT WAS FASTINGPERFORMED BY: LabM[facility] [facility] [place] [id number] Vitamin D, 25-Hydroxy 40.4 ng/mL (Normal) Range: 30.0-100.0 Comments: Vitamin D deficiency has been defined by the [place] of[place]icine and an Endocrine Society practice guideline as alevel of serum 25-OH vitamin D less than 20 ng/mL (1,2).The Endocrine Society went on to further define vitamin Dinsufficiency as a level between 21 and 29 ng/mL (2).1. IOM ([place] of Medicine). 2010. Dietary reference intakes for calcium and D. [place]: The National Academies Press.2. Antionette MF, Emma SUÁREZ, Solis FERNÁNDEZ, et al. Evaluation, treatment, and prevention of vitamin D deficiency: an Endocrine Society clinical practice guideline. JCEM. 2010; 96(7):1911-30. 33-Oid-972819:35 CBC (Auto) (74920) Comments: PATIENT WAS FASTINGPERFORMED BY: [employer] [facility] HospitalSparql CityCarolinas [facility] [id number] Information: [id number] Platelets 249 {x10E3/uL} (Normal) Range: 140-415 RDW 14.3 % (Normal) Range: 12.3-15.4 MCHC 33.6 g/dL (Normal) Range: 31.5-35.7 MCH 30.2 pg (Normal) Range: 26.6-33.0 MCV 90 fL (Normal) Range: 79-97 Hematocrit 43.4 % (Normal) Range: 37.5-51.0 Hemoglobin 14.6 g/dL (Normal) Range: 12.6-17.7 RBC 4.83 {x10E6/uL} (Normal) Range: 4.14-5.80 WBC 10.3 {x10E3/uL} (Normal) Range: 4.0-10.5 56-Wla-489215:35 Metabolic Panel, Basic Comments: PATIENT WAS FASTINGPERFORMED BY: [employer] [facility] [id number] (26494) Calcium, Serum 10.2 mg/dL (Normal) Range: 8.6-10.2 Carbon Dioxide, Total 23 mmol/L (Normal) Range: 20-32 Chloride, Serum 103 mmol/L (Normal) Range: 97-108 Potassium, Serum 4.5 mmol/L (Normal) Range: 3.5-5.2 Sodium, Serum 141 mmol/L (Normal) Range: 134-144 BUN/Creatinine Ratio 19 (Normal) Range: 10-22 eGFR If Africn Am 108 mL/min/1.73 (Normal) eGFR If NonAfricn Am 94 mL/min/1.73 (Normal) Creatinine, Serum 0.75 mg/dL (Abnormal) Range: 0.76-1.27 BUN 14 mg/dL (Normal) Range: 8-27 Glucose, Serum 154 mg/dL (Abnormal) Range: 65-99 :35 MICROALBUMIN: CREATININE RATIO Comments: PATIENT WAS FASTINGPERFORMED BY: [employer] [facility] [id number] (95221) AND (39349) Microalb/Creat Ratio 26.3 {mg/g_creat} (Normal) Range: 0.0-30.0 Microalbumin, Urine 35.7 ug/mL (Abnormal) Range: 0.0-17.0 Creatinine, Urine 135.8 mg/dL (Normal) Range: 22.0-328.0 :51 HgA1C , Office (90830) HgA1C , Office 6.6 % (Normal) Range: 4.6 - 7.1 :51 Blood Glucose , Office (72593) Blood Glucose , Office 70 (Normal) :56 Lipid Panel (89013) Comments: PATIENT WAS FASTINGPERFORMED BY: [employer] Ymajng[address] [facility] [id number] Information: [id number]; f/u 12/05/11 LDL/HDL Ratio 2.3 {ratio_units} (Normal) Range: 0.0-3.6 LDL Cholesterol Calc 99 mg/dL (Normal) Range: 0-99 VLDL Cholesterol Wallace 35 mg/dL (Normal) Range: 5-40 HDL Cholesterol 43 mg/dL (Normal) Comments: According to ATP-III Guidelines, HDL-C >59 mg/dL is considered anegative risk factor for CHD. Triglycerides 173 mg/dL (Abnormal) Range: 0-149 Cholesterol, Total 177 mg/dL (Normal) Range: 100-199 39-Upk-469793:43 HgA1C , Office (53682) HgA1C , Office 6.8 % (Normal) Range: 4.6 - 7.1 14-Imj-690465:42 Blood Glucose , Office (23681) Blood Glucose , Office 159 (Normal) 10-Xbo-367355:18 CALCIFIDIOL (67655) VIT D 25 Comments: PATIENT WAS FASTINGPERFORMED BY: [facility] Qaunzp[address] [facility] [id number] Vitamin D, 25-Hydroxy 32.9 ng/mL (Normal) Range: 30.0-100.0 Comments: Vitamin D deficiency has been defined by the [place] of[place]icine and an Endocrine Society practice guideline as alevel of serum 25-OH vitamin D less than 20 ng/mL (1,2).The Endocrine Society went on to further define vitamin Dinsufficiency as a level between 21 and 29 ng/mL (2).1. IOM ([place] of Medicine). 2011. Dietary reference intakes for calcium and D. [place]: The National Academies Press.2. Antionette MF, Emma [place], Solis FERNÁNDEZ, et al. Evaluation, treatment, and prevention of vitamin D deficiency: an Endocrine Society clinical practice guideline. JCEM. 2010; 96(7):1911-30. 78-Vqc-561465:18 CBC (Auto) (86602) Comments: PATIENT WAS FASTINGPERFORMED BY: [facility] Nrynjg[address] [facility] [id number] Information: [id number] Platelets 247 {x10E3/uL} (Normal) Range: 140-415 RDW 14.4 % (Normal) Range: 11.7-15.0 MCHC 33.5 g/dL (Normal) Range: 32.0-36.0 MCH 30.5 pg (Normal) Range: 27.0-34.0 MCV 91 fL (Normal) Range: 80-98 Hematocrit 42.4 % (Normal) Range: 36.0-50.0 Hemoglobin 14.2 g/dL (Normal) Range: 12.5-17.0 RBC 4.65 {x10E6/uL} (Normal) Range: 4.10-5.60 WBC 8.3 {x10E3/uL} (Normal) Range: 4.0-10.5 25-Aaq-665242:18 Metabolic Panel, Basic Comments: PATIENT WAS FASTINGPERFORMED BY: [facility]Uhyymi[address] [facility] [id number] (69974) Calcium, Serum 9.5 mg/dL (Normal) Range: 8.6-10.2 Carbon Dioxide, Total 20 mmol/L (Normal) Range: 20-32 Chloride, Serum 104 mmol/L (Normal) Range: 97-108 Potassium, Serum 4.0 mmol/L (Normal) Range: 3.5-5.2 Sodium, Serum 137 mmol/L (Normal) Range: 134-144 BUN/Creatinine Ratio 16 (Normal) Range: 10-22 eGFR If Africn Am 103 mL/min/1.73 (Normal) Comments: Note: A persistent eGFR <60 mL/min/1.73 m2 (3 months or more) mayindicate chronic kidney disease. An eGFR >59 mL/min/1.73 m2 with anelevated urine protein also may indicate chronic kidney disease.Calculated using CKD-EPI formula. eGFR If NonAfricn Am 89 mL/min/1.73 (Normal) Creatinine, Serum 0.85 mg/dL (Normal) Range: 0.76-1.27 BUN 14 mg/dL (Normal) Range: 8-27 Glucose, Serum 164 mg/dL (Abnormal) Range: 65-99 45-Mxf-752253:18 MICROALBUMIN: CREATININE RATIO Comments: PATIENT WAS FASTINGPERFORMED BY: [facility]Isdjes[address] [facility] [id number] (47635) AND (34053) Microalb/Creat Ratio 13.8 {mg/g_creat} (Normal) Range: 0.0-30.0 Microalbumin, Urine 23.2 ug/mL (Abnormal) Range: 0.0-17.0 Creatinine, Urine 167.7 mg/dL (Normal) Range: 22.0-328.0 58-Lis-843492:05 HgA1C , Office (81696) HgA1C , Office 6.7 % (Normal) Range: 4.6 - 7.1 00-Hle-935257:05 Blood Glucose , Office (17571) Blood Glucose , Office 103 (Normal) 11-Spf-288552:00 HgA1C , Office (26983) HgA1C , Office 6.5 % (Normal) Range: 4.6 - 7.1 14-Dwk-793956:00 Blood Glucose , Office (29386) Blood Glucose , Office 103 (Normal) 75-Pjc-151533:59 CALCIFIDIOL (69524) VIT D 25 Comments: PATIENT NOT FASTINGPERFORMED BY: [employer] Gvqdoe7175 BarrettImpres [facility]First[facility] [id number] Vitamin D, 25-Hydroxy 32.8 ng/mL (Normal) Range: 32.0-100.0 Comments: Effective July 07, 2011 Vitamin D, 25-Hydroxy reference intervals will be changing to 30-100. .Recent studies consider the lower li silvia of 32.0 ng/mL to be athreshold for optimal health.Liam FIGUEREDO. J Nutr. 2004;135(2):317-22. 80-Npi-258079:59 MICROALBUMIN: CREATININE RATIO Comments: PATIENT NOT FASTINGPERFORMED BY: [employer]6370 BarrettKarmYog MediaCarolinas [facility] [id number] (83555) AND (81257) Microalb/Creat Ratio 12.3 {mg/g_creat} (Normal) Range: 0.0-30.0 Microalbumin, Urine 41.3 ug/mL (Abnormal) Range: 0.0-17.0 Creatinine, Urine 336.6 mg/dL (Abnormal) Range: 22.0-328.0 30-Tyk-649250:59 CBC (Auto) (61495) Comments: PATIENT NOT FASTINGPERFORMED BY: [employer] Tzrguw[address] [facility] [id number] Information: [id number] Platelets 260 {x10E3/uL} (Normal) Range: 140-415 RDW 14.3 % (Normal) Range: 11.7-15.0 MCHC 34.5 g/dL (Normal) Range: 32.0-36.0 MCH 30.3 pg (Normal) Range: 27.0-34.0 MCV 88 fL (Normal) Range: 80-98 Hematocrit 43.2 % (Normal) Range: 36.0-50.0 Hemoglobin 14.9 g/dL (Normal) Range: 12.5-17.0 RBC 4.91 {x10E6/uL} (Normal) Range: 4.10-5.60 WBC 10.7 {x10E3/uL} (Abnormal) Range: 4.0-10.5 :59 Metabolic Panel, Basic Comments: PATIENT NOT FASTINGPERFORMED BY: [facility]Co[facility]Vwkzgm[address] [facility] [id number] (32443) Calcium, Serum 9.8 mg/dL (Normal) Range: 8.6-10.2 Carbon Dioxide, Total 21 mmol/L (Normal) Range: 20-32 Chloride, Serum 102 mmol/L (Normal) Range: 97-108 Potassium, Serum 4.6 mmol/L (Normal) Range: 3.5-5.2 Sodium, Serum 138 mmol/L (Normal) Range: 135-145 BUN/Creatinine Ratio 19 (Normal) Range: 10-22 eGFR If Africn Am 91 mL/min/1.73 (Normal) Comments: Note: A persistent eGFR <60 mL/min/1.73 m2 (3 months or more) mayindicate chronic kidney disease. An eGFR >59 mL/min/1.73 m2 with anelevated urine protein also may indicate chronic kidney disease.Calculated using CKD-EPI formula. eGFR If NonAfricn Am 79 mL/min/1.73 (Normal) Creatinine, Serum 0.98 mg/dL (Normal) Range: 0.76-1.27 BUN 19 mg/dL (Normal) Range: 8-27 Glucose, Serum 177 mg/dL (Abnormal) Range: 65-99 :18 HgA1C , Office (75554) HgA1C , Office 7.4 % (Abnormal) Range: 4.6 - 7.1 :18 Blood Glucose , Office (95868) Blood Glucose , Office 132 (Normal) :09 HgA1C , Office (61400) HgA1C , Office 6.7 % (Normal) Range: 4.6 - 7.1 :09 Blood Glucose , Office (87523) Blood Glucose , Office 117 (Normal) 2-Pbu-122866:29 LIPID PANEL (74977) Comments: PATIENT WAS FASTINGPERFORMED BY: [facility] Ukhakb[address] [facility] [id number] Information: [id number] LDL Cholesterol Calc 114 mg/dL (Abnormal) Range: 0-99 LDL/HDL Ratio 2.7 {ratio_units} (Normal) Range: 0.0-3.6 HDL Cholesterol 43 mg/dL (Normal) Comments: According to ATP-III Guidelines, HDL-C >59 mg/dL is considered anegative risk factor for CHD. VLDL Cholesterol Wallace 48 mg/dL (Abnormal) Range: 5-40 Triglycerides 238 mg/dL (Abnormal) Range: 0-149 Cholesterol, Total 205 mg/dL (Abnormal) Range: 100-199 :08 HgA1C , Office (51808) HgA1C , Office 6.8 % (Normal) Range: 4.6 - 7.1 :08 Blood Glucose , Office (85332) Blood Glucose , Office 120 (Normal) 93-Gyw-176387:23 PRO TIME INR 1.9 (Normal) PROTIME 19.9 s (Abnormal) Range: 9.1-11.7 8-Pcz-756230:52 COMP METABOLIC Comments: DR JACKSON RECEIVES THE CALCIFIDOL,LIPID,CMPREST GOES TO DR MAGALLON CL 104 mmol/L (Normal) Range: 98-107 CO2 27.0 mmol/L (Normal) Range: 21.0-32.0 GAP 9 (Normal) Range: 5-15 A/G 1.0 {RATIO} (Normal) Range: 0.9-2.4 ALB 3.7 g/dL (Normal) Range: 3.4-5.0 ALK P 45 U/L (Abnormal) Range: 50-136 ALT 43 U/L (Normal) Range: 12-78 AST 20 U/L (Normal) Range: 15-37 BUN/CRE 13.0 {RATIO} (Normal) Range: 10-20 CA 9.7 mg/dL (Normal) Range: 8.5-10.1 EST GFR - AA 96 mL/min (Normal) GLOB 3.8 g/dL (Normal) Range: 2.7-4.2 K 4.1 mmol/L (Normal) Range: 3.5-5.1 NA 140 mmol/L (Normal) Range: 136-145 T BILI 0.60 mg/dL (Normal) Range: 0.00-1.00 T PROT 7.5 g/dL (Normal) Range: 6.4-8.2 BUN 13 mg/dL (Normal) Range: 7-18 CREAT,SERUM 1.0 mg/dL (Normal) Range: 0.8-1.3 EST GFR 79 mL/min (Normal) GLU 183 mg/dL (Abnormal) Range: 70-110 Comments: Fasting Glucose result greater than or equal to 126 mg/dL suggests DIABETES MELLITUS per A.D.A. criteria. :52 LIPID Comments: DR JACKSON RECEIVES THE CALCIFIDOL,LIPID,CMPREST GOES TO DR MAGALLON HDL 38 mg/dL (Abnormal) Comments: Reference Range HDL <40 mg/dL Low HDL Cholesterol HDL >or= 60 mg/dL High HDL Cholesterol LDL 86 mg/dL (Normal) Range: 0-130 VLDL 48 mg/dL (Abnormal) Range: 5-40 CHOL 172 mg/dL (Normal) Comments: <200 mg/dL Desirable 200-240 mg/dL Borderline >240 mg/dL High Risk TRIG 238 mg/dL (Abnormal) Comments: Serum Triglycerides Reference Interval Normal <150 mg/dL Borderline high 150 - 199 mg/dL High 200 - 499 mg/dL Very High > or = 500 mg/dL :52 PRO TIME Comments: DR JACKSON RECEIVES THE CALCIFIDOL,LIPID,CMPREST GOES TO DR MAGALLON INR 3.4 (Normal) PROTIME 35.1 s (Abnormal) Range: 9.1-11.7 :25 PRO TIME INR 2.9 (Normal) PROTIME 29.4 s (Abnormal) Range: 9.1-11.7 :12 PRO TIME INR 3.4 (Normal) PROTIME 34.6 s (Abnormal) Range: 9.1-11.7 :46 PRO TIME INR 2.9 (Normal) PROTIME 29.8 s (Abnormal) Range: 9.1-11.7 :12 HgA1C , Office (98802) HgA1C , Office 6.2 % (Normal) Range: 4.6 - 7.1 :12 Blood Glucose , Office (77243) Blood Glucose , Office 158 (Normal) :29 CBCD ABSOLUTE NEUT 5.5 3/uL (Normal) Range: 2.0-7.7 BASO% 0.2 % (Normal) Range: 0-1 EO% 3.2 % (Normal) Range: 0-5 LY% 32.0 % (Normal) Range: 19-41 MONO% 7.1 % (Normal) Range: 0-10 MPV 8.4 fL (Normal) Range: 6.5-12.0 NEUT% 57.5 % (Normal) Range: 47-70 PLT 218 K/mm3 (Normal) Range: 150-450 HCT 42.6 % (Normal) Range: 40-54 HGB 14.6 g/dL (Normal) Range: 14.0-18.0 MCH 31.4 pg (Normal) Range: 27.0-32.0 MCHC 34.2 g/dL (Normal) Range: 32-36 MCV 91.6 fL (Normal) Range: 80-94 RBC 4.65 {M/mm3} (Normal) Range: 4.6-6.2 RDW 13.3 % (Normal) Range: 11.6-14.6 WBC 9.6 K/mm3 (Normal) Range: 4.4-11.0 :29 COMP METABOLIC CL 102 mmol/L (Normal) Range: 98-107 CO2 27.0 mmol/L (Normal) Range: 21.0-32.0 GAP 6 (Normal) Range: 5-15 A/G 1.0 {RATIO} (Normal) Range: 0.9-2.4 ALB 3.9 g/dL (Normal) Range: 3.4-5.0 ALK P 40 U/L (Abnormal) Range: 50-136 ALT 41 U/L (Normal) Range: 12-78 AST 23 U/L (Normal) Range: 15-37 CA 9.3 mg/dL (Normal) Range: 8.5-10.1 GLOB 3.8 g/dL (Normal) Range: 2.7-4.2 K 4.1 mmol/L (Normal) Range: 3.5-5.1 NA 135 mmol/L (Abnormal) Range: 136-145 T BILI 0.50 mg/dL (Normal) Range: 0.00-1.00 T PROT 7.7 g/dL (Normal) Range: 6.4-8.2 BUN/CRE 23.8 {RATIO} (Abnormal) Range: 10-20 CREAT,SERUM 0.8 mg/dL (Normal) Range: 0.8-1.3 EST GFR 102 mL/min (Normal) EST GFR - AA 124 mL/min (Normal) BUN 19 mg/dL (Abnormal) Range: 7-18 GLU 164 mg/dL (Abnormal) Range: 70-110 Comments: Fasting Glucose result greater than or equal to 126 mg/dLsuggests DIABETES MELLITUS per A.D.A. criteria. 17-Acr-658106:29 D BILI 0.11 mg/dL (Normal) Range: 0.00-0.30 :29 LIPID HDL 37 mg/dL (Abnormal) Comments: Reference RangeHDL <40 mg/dL Low HDL CholesterolHDL >or= 60 mg/dL High HDL Cholesterol LDL 105 mg/dL (Normal) Range: 0-130 TRIG 202 mg/dL (Abnormal) Comments: Serum Triglycerides Reference IntervalNormal <150 mg/dLBorderline high 150 - 199 mg/dLHigh 200 - 499 mg/ dLVery High > or = 500 mg/dL VLDL 40 mg/dL (Normal) Range: 5-40 CHOL 182 mg/dL (Normal) Comments: <200 mg/dL Lrifbbvse742-657 mg/dL Borderline>240 mg/dL High Risk 2-Ysw-272472:41 PRO TIME Comments: YOON TONY ORDERED VIT D.DR. HOFFMAN ORDERED PT INR 2.7 (Normal) PROTIME 27.3 s (Abnormal) Range: 9.1-11.7 4-Rry-686061:41 VIT D,25 17773 26.5 ng/mL (Abnormal) Comments: YOON TONY ORDERED VIT D.DR. HOFFMAN ORDERED PT Range: 32.0-100.0 Comments: Recent studies consider the lower limit of 32.0 ng/mL to kira threshold for optimal health.Liam FIGUEREDO. J Nutr. 2004;135(2):317-22.Performed at: - LabCoJacqueline [place] [address] Director: Sonali Darling MD, Phone: [phone] PRO TIME Comments: ORDERED PT/INRYOON TONY ORDERED VITD INR 3.2 (Normal) PROTIME 33.0 s (Abnormal) Range: 9.1-11.7 :13 BMP CO2 27.0 mmol/L (Normal) Range: 21.0-32.0 GAP 10 (Normal) Range: 5-15 BUN 16 mg/dL (Normal) Range: 7-18 BUN/CRE 17.8 {RATIO} (Normal) Range: 10-20 CA 9.4 mg/dL (Normal) Range: 8.5-10.1 CL 99 mmol/L (Normal) Range: 98-107 CREAT,SERUM 0.9 mg/dL (Normal) Range: 0.8-1.3 EST GFR 89 mL/min (Normal) EST GFR - AA 108 mL/min (Normal) GLU 137 mg/dL (Abnormal) Range: 70-110 Comments: Fasting Glucose result greater than or equal to 126 mg/dLsuggests DIABETES MELLITUS per A.D.A. criteria. K 3.9 mmol/L (Normal) Range: 3.5-5.1 NA 136 mmol/L (Normal) Range: 136-145 :13 FLECAIN 67521 FLECAINID 96991 0.39 ug/mL (Normal) Range: 0.20-1.00 Comments: Detection Limit = 0.10Performed at: - [facility] [id number] Director: Tutu Boone MD :13 MG 1.7 mg/dL (Normal) Range: 1.5-2.2 :13 PRO TIME INR 2.0 (Normal) PROTIME 20.6 s (Abnormal) Range: 9.1-11.7 :01 BMP CL 105 mmol/L (Normal) Range: 98-107 CO2 26.0 mmol/L (Normal) Range: 21.0-32.0 GAP 9 (Normal) Range: 5-15 K 4.1 mmol/L (Normal) Range: 3.5-5.1 BUN 15 mg/dL (Normal) Range: 7-18 BUN/CRE 15.0 {RATIO} (Normal) Range: 10-20 CA 8.8 mg/dL (Normal) Range: 8.5-10.1 CREAT,SERUM 1.0 mg/dL (Normal) Range: 0.8-1.3 EST GFR 79 mL/min (Normal) EST GFR - AA 96 mL/min (Normal) GLU 131 mg/dL (Abnormal) Range: 70-110 Comments: Fasting Glucose result greater than or equal to 126 mg/dLsuggests DIABETES MELLITUS per A.D.A. criteria. NA 140 mmol/L (Normal) Range: 136-145 3-Hzn-489487:01 FLECAIN 37015 FLECAINID 34280 0.25 ug/mL (Normal) Range: 0.20-1.00 Comments: Detection Limit = 0.10Performed at: [facility] Lab[address] [id number] Director: Tutu Boone MD 6-Xay-552992:01 MG 1.7 mg/dL (Normal) Range: 1.5-2.2 9-Wag-647367:01 PRO TIME INR 2.9 (Normal) PROTIME 30.1 s (Abnormal) Range: 9.1-11.7 62-Kxx-965466:38 BEDSIDE GLU 94 mg/dL (Normal) Range: 70-110 Comments: No Action Required0 11-Ttv-90459:19 BEDSIDE GLU 151 mg/dL (Abnormal) Range: 70-110 Comments: Fasting Glucose result greater than or equal to 126 mg/dLsuggests DIABETES MELLITUS per A.D.A. criteria.Insulin given7 21-Pjk-18497:00 BMP BUN 17 mg/dL (Normal) Range: 7-18 BUN/CRE 18.9 {RATIO} (Normal) Range: 10-20 CA 9.5 mg/dL (Normal) Range: 8.5-10.1 CL 98 mmol/L (Normal) Range: 98-107 CO2 26.0 mmol/L (Normal) Range: 21.0-32.0 CREAT,SERUM 0.9 mg/dL (Normal) Range: 0.8-1.3 EST GFR 89 mL/min (Normal) EST GFR - AA 108 mL/min (Normal) GAP 12 (Normal) Range: 5-15 K 4.2 mmol/L (Normal) Range: 3.5-5.1 NA 136 mmol/L (Normal) Range: 136-145 GLU 161 mg/dL (Abnormal) Range: 70-110 Comments: Fasting Glucose result greater than or equal to 126 mg/dLsuggests DIABETES MELLITUS per A.D.A. criteria. 93-Zin-69731:00 MG 1.6 mg/dL (Normal) Range: 1.5-2.2 79-Xvy-67232:00 PRO TIME INR 3.5 (Normal) PROTIME 36.3 s (Abnormal) Range: 9.1-11.7 17-Rhd-[id number]:18 BEDSIDE GLU 104 mg/dL (Normal) Range: 70-110 Comments: No Action Required0 [id number]-Ylh-[id number]:39 BEDSIDE GLU 76 mg/dL (Normal) Range: 70-110 Comments: Policy and Physicians Orders [id number] 26-Mdq-[id number]:03 BEDSIDE GLU 106 mg/dL (Normal) Range: 70-110 Comments: No Action Required0 10-Lcg-26508:17 BEDSIDE GLU 151 mg/dL (Abnormal) Range: 70-110 Comments: Fasting Glucose result greater than or equal to 126 mg/dLsuggests DIABETES MELLITUS per A.D.A. criteria.Policy and Physicians Orders followed :30 BMP CO2 28.0 mmol/L (Normal) Range: 21.0-32.0 GAP 7 (Normal) Range: 5-15 BUN/CRE 20.0 {RATIO} (Normal) Range: 10-20 CA 8.6 mg/dL (Normal) Range: 8.5-10.1 CL 101 mmol/L (Normal) Range: 98-107 EST GFR - AA 108 mL/min (Normal) K 4.2 mmol/L (Normal) Range: 3.5-5.1 NA 136 mmol/L (Normal) Range: 136-145 BUN 18 mg/dL (Normal) Range: 7-18 CREAT,SERUM 0.9 mg/dL (Normal) Range: 0.8-1.3 EST GFR 89 mL/min (Normal) GLU 144 mg/dL (Abnormal) Range: 70-110 Comments: Fasting Glucose result greater than or equal to 126 mg/dLsuggests DIABETES MELLITUS per A.D.A. criteria. 53-Enq-70070:30 CBCD ABSOLUTE NEUT 5.1 3/uL (Normal) Range: 2.0-7.7 BASO% 0.3 % (Normal) Range: 0-1 EO% 2.4 % (Normal) Range: 0-5 LY% 37.0 % (Normal) Range: 19-41 MONO% 7.4 % (Normal) Range: 0-10 MPV 7.9 fL (Normal) Range: 6.5-12.0 NEUT% 52.9 % (Normal) Range: 47-70 PLT 203 K/mm3 (Normal) Range: 150-450 RDW 12.8 % (Normal) Range: 11.6-14.6 HCT 36.8 % (Abnormal) Range: 40-54 HGB 12.8 g/dL (Abnormal) Range: 14.0-18.0 MCH 31.8 pg (Normal) Range: 27.0-32.0 MCHC 34.7 g/dL (Normal) Range: 32-36 MCV 91.7 fL (Normal) Range: 80-94 RBC 4.02 {M/mm3} (Abnormal) Range: 4.6-6.2 WBC 9.6 K/mm3 (Normal) Range: 4.4-11.0 :30 MG 1.6 mg/dL (Normal) Range: 1.5-2.2 :30 PRO TIME INR 3.3 (Normal) PROTIME 33.7 s (Abnormal) Range: 9.1-11.7 21-Pyp-105965:16 BEDSIDE GLU 157 mg/dL (Abnormal) Range: 70-110 Comments: Fasting Glucose result greater than or equal to 126 mg/dLsuggests DIABETES MELLITUS per A.D.A. criteria.Policy and Physicians Orders followed [id number]-[id number] BEDSIDE GLU 135 mg/dL (Abnormal) Range: 70-110 Comments: Fasting Glucose result greater than or equal to 126 mg/dLsuggests DIABETES MELLITUS per A.D.A. criteria.Policy and Physicians Orders [id number]:55 BEDSIDE GLU 155 mg/dL (Abnormal) Range: 70-110 Comments: Fasting Glucose result greater than or equal to 126 mg/dLsuggests DIABETES MELLITUS per A.D.A. criteria.Insulin given7 85-Vvo-43247:51 CARDIOVERSION (OUTPT) Radiology Report See Note (Normal) Comments: Exam Number: [id number] Procedure completed. Please see MEDICAL RECORDS reports in PCI -OP - OP NOTELET - LETTER. Reported By: KENNETH BLACK M.D. [id number] BMP CL 102 mmol/L (Normal) Range: 98-107 CO2 27.0 mmol/L (Normal) Range: 21.0-32.0 GAP 8 (Normal) Range: 5-15 K 4.1 mmol/L (Normal) Range: 3.5-5.1 NA 137 mmol/L (Normal) Range: 136-145 BUN 16 mg/dL (Normal) Range: 7-18 BUN/CRE 16.0 {RATIO} (Normal) Range: 10-20 CA 9.3 mg/dL (Normal) Range: 8.5-10.1 CREAT,SERUM 1.0 mg/dL (Normal) Range: 0.8-1.3 EST GFR 79 mL/min (Normal) EST GFR - AA 96 mL/min (Normal) GLU 158 mg/dL (Abnormal) Range: 70-110 Comments: Fasting Glucose result greater than or equal to 126 mg/dLsuggests DIABETES MELLITUS per A.D.A. criteria. [id number]:46 CBC HCT 42.4 % (Normal) Range: 40-54 HGB 14.6 g/dL (Normal) Range: 14.0-18.0 MCH 31.7 pg (Normal) Range: 27.0-32.0 MCHC 34.4 g/dL (Normal) Range: 32-36 MCV 92.2 fL (Normal) Range: 80-94 MPV 8.5 fL (Normal) Range: 6.5-12.0 PLT 226 K/mm3 (Normal) Range: 150-450 RBC 4.60 {M/mm3} (Normal) Range: 4.6-6.2 RDW 13.1 % (Normal) Range: 11.6-14.6 WBC 11.1 K/mm3 (Abnormal) Range: 4.4-11.0 :46 LIPID HDL 36 mg/dL (Normal) Comments: Reference RangeHDL <40 mg/dL Low HDL CholesterolHDL >or= 60 mg/dL High HDL Cholesterol LDL 132 mg/dL (Abnormal) Range: 0-130 VLDL 51 mg/dL (Abnormal) Range: 5-40 TRIG 254 mg/dL (Abnormal) Comments: Serum Triglycerides Reference IntervalNormal <150 mg/dLBorderline high 150 - 199 mg/dLHigh 200 - 499 mg/ dLVery High > or = 500 mg/dL CHOL 219 mg/dL (Abnormal) Comments: <200 mg/dL Qiltxbevc322-567 mg/dL Borderline>240 mg/dL High Risk [id number]-Jrj-[id number]:46 LIVER D BILI 0.16 mg/dL (Normal) Range: 0.00-0.30 ALB 3.7 g/dL (Normal) Range: 3.4-5.0 ALK P 43 U/L (Abnormal) Range: 50-136 ALT 41 U/L (Normal) Range: 12-78 AST 20 U/L (Normal) Range: 15-37 T BILI 0.70 mg/dL (Normal) Range: 0.00-1.00 T PROT 7.4 g/dL (Normal) Range: 6.4-8.2 :46 MG 1.5 mg/dL (Normal) Range: 1.5-2.2 :46 PRO TIME INR 2.3 (Normal) PROTIME 23.7 s (Abnormal) Range: 9.1-11.7 :46 PTT 34.4 s (Normal) Range: 25.2-36.2 :46 T4 THYROXIN 9.0 ug/dL (Normal) Range: 4.5-12.1 77-Gyb-918936:46 TSH 0.56 {uIU/mL} (Normal) Range: 0.358-3.74 :26 PRO TIME INR 2.6 (Normal) PROTIME 26.4 s (Abnormal) Range: 9.1-11.7 :26 PRO TIME INR 2.6 (Normal) PROTIME 26.4 s (Abnormal) Range: 9.1-11.7 :48 PRO TIME INR 3.8 (Abnormal) Comments: CRITICAL VALUE REPEATED AND VERIFIED. CALLED TO MUKESH01/03/10 LUIS LOZANO.RESULTS READ BACK BY MUKESH . PROTIME 39.5 s (Abnormal) Range: 9.1-11.7 79-Wvj-497567:50 CALCIFEDIOL (32123) Comments: PATIENT NOT FASTINGPERFORMED BY: [facility] [id number] [facility] [id number] Information: [id number] Vitamin D, 25-Hydroxy 29.3 ng/mL (Abnormal) Range: 32.0-100.0 Comments: Recent studies consider the lower limit of 32.0 ng/mL to be athreshold for optimal health.Liam FIGUEREDO. J Nutr. 2004;135(2):317-22. 61-Abl-239502:02 HgA1C , Office (19308) HgA1C , Office 7.4 % (Abnormal) Range: 4.6 - 7.1 31-Jqg-173744:02 Blood Glucose , Office (56704) Blood Glucose , Office 160 (Normal) 32-Xxz-246939:50 CBC With Differential/Platelet Comments: PATIENT WAS FASTINGPERFORMED BY: [facility] [id number] [facility] [id number] Baso (Absolute) 0.1 {x10E3/uL} (Normal) Range: 0.0-0.2 Eos (Absolute) 0.3 {x10E3/uL} (Normal) Range: 0.0-0.4 Lymphs (Absolute) 3.8 {x10E3/uL} (Normal) Range: 0.7-4.5 Monocytes(Absolute) 0.5 {x10E3/uL} (Normal) Range: 0.1-1.0 Basos 1 % (Normal) Range: 0-3 Eos 3 % (Normal) Range: 0-7 Neutrophils (Absolute) 4.4 {x10E3/uL} (Normal) Range: 1.8-7.8 Lymphs 42 % (Normal) Range: 14-46 Monocytes 5 % (Normal) Range: 4-13 Neutrophils 49 % (Normal) Range: 40-74 Platelets 218 {x10E3/uL} (Normal) Range: 140-415 MCH 31.6 pg (Normal) Range: 27.0-34.0 MCHC 33.8 g/dL (Normal) Range: 32.0-36.0 RDW 13.6 % (Normal) Range: 11.7-15.0 Hematocrit 42.9 % (Normal) Range: 36.0-50.0 Hemoglobin 14.5 g/dL (Normal) Range: 12.5-17.0 MCV 93 fL (Normal) Range: 80-98 RBC 4.59 {x10E6/uL} (Normal) Range: 4.10-5.60 WBC 9.0 {x10E3/uL} (Normal) Range: 4.0-10.5 94-Gif-954619:50 Comp. Metabolic Panel (14) Comments: PATIENT WAS FASTINGPERFORMED BY: [facility] [facility] [address] [id number] A/G Ratio 1.8 (Normal) Range: 1.1-2.5 Alkaline Phosphatase, S 31 [iU]/L (Normal) Range: 25-160 ALT (SGPT) 27 [iU]/L (Normal) Range: 0-55 AST (SGOT) 24 [iU]/L (Normal) Range: 0-40 Bilirubin, Total 0.6 mg/dL (Normal) Range: 0.1-1.2 Globulin, Total 2.5 g/dL (Normal) Range: 1.5-4.5 Albumin, Serum 4.4 g/dL (Normal) Range: 3.6-4.8 Calcium, Serum 10.1 mg/dL (Normal) Range: 8.6-10.2 Protein, Total, Serum 6.9 g/dL (Normal) Range: 6.0-8.5 Carbon Dioxide, Total 20 mmol/L (Normal) Range: 20-32 Chloride, Serum 102 mmol/L (Normal) Range: 97-108 Potassium, Serum 4.1 mmol/L (Normal) Range: 3.5-5.2 BUN/Creatinine Ratio 20 (Normal) Range: 8-27 Sodium, Serum 140 mmol/L (Normal) Range: 135-145 eGFR AfricanAmerican >59 mL/min/1.73 Comments: Note: Persistent reduction for 3 months or more in an eGFR<60 mL/min/1.73 m2 defines CKD. Patients with eGFR values>/=60 mL/min/1.73 m2 may also have CKD if evidence of persistentproteinuria is (Normal) present. Additional information may be found [email or web address]. Creatinine, Serum 1.01 mg/dL (Normal) Range: 0.76-1.27 eGFR >59 mL/min/1.73 (Normal) BUN 20 mg/dL (Normal) Range: 5-26 Glucose, Serum 182 mg/dL (Abnormal) Range: 65-99 :50 Lipid Panel With LDL/HDL Comments: PATIENT WAS FASTINGPERFORMED BY: ALFONSO [facility] [id number] [facility] [id number] Ratio LDL Cholesterol Calc 153 mg/dL (Abnormal) Range: 0-99 LDL/HDL Ratio 4.4 {ratio_units} (Abnormal) Range: 0.0-3.6 HDL Cholesterol 35 mg/dL (Abnormal) Comments: According to ATP-III Guidelines, HDL-C >59 mg/dL is considered anegative risk factor for CHD. Triglycerides 252 mg/dL (Abnormal) Range: 0-149 VLDL Cholesterol Wallace 50 mg/dL (Abnormal) Range: 5-40 Cholesterol, Total 238 mg/dL (Abnormal) Range: 100-199 :08 HgA1C , Office (94148) HgA1C , Office 6.5 % (Normal) Range: 4.6 - 7.1 :08 Blood Glucose , Office (12841) Blood Glucose , Office 184 (Normal) :17 COMP METABOLIC A/G 1.1 {RATIO} (Normal) Range: 0.9-2.4 ALB 3.7 g/dL (Normal) Range: 3.4-5.0 ALK P 33 U/L (Abnormal) Range: 50-136 ALT 36 U/L (Normal) Range: 12-78 Comments: Please Note: Revised Reference Range effective 09 AST 27 U/L (Normal) Range: 15-37 BUN 18 mg/dL (Normal) Range: 7-18 BUN/CRE 18.0 {RATIO} (Normal) Range: 10-20 CA 9.3 mg/dL (Normal) Range: 8.5-10.1 CL 98 mmol/L (Normal) Range: 98-107 CO2 28.0 mmol/L (Normal) Range: 21.0-32.0 CREAT,SERUM 1.0 mg/dL (Normal) Range: 0.8-1.3 EST GFR 79 mL/min (Normal) EST GFR - AA 96 mL/min (Normal) GAP 9 (Normal) Range: 5-15 GLOB 3.5 g/dL (Normal) Range: 2.7-4.2 GLU 186 mg/dL (Abnormal) Range: 70-110 Comments: Fasting Glucose result greater than or equal to 126 mg/dL suggests DIABETES MELLITUS per A.D.A. criteria. K 4.2 mmol/L (Normal) Range: 3.5-5.1 NA 135 mmol/L (Abnormal) Range: 136-145 T BILI 0.60 mg/dL (Normal) Range: 0.00-1.00 T PROT 7.2 g/dL (Normal) Range: 6.4-8.2 77-Ldf-[id number]:17 LIPID HDL 38 mg/dL (Normal) Comments: Reference Range HDL <40 mg/dL Low HDL Cholesterol HDL >or= 60 mg/dL High HDL Cholesterol LDL 136 mg/dL (Abnormal) Range: 0-130 VLDL 69 mg/dL (Abnormal) Range: 5-40 CHOL 243 mg/dL (Abnormal) Comments: <200 mg/dL Desirable 200-240 mg/dL Borderline >240 mg/dL High Risk TRIG 347 mg/dL (Abnormal) Comments: Serum Triglycerides Reference Interval Normal <150 mg/dL Borderline high 150 - 199 mg/dL High 200 - 499 mg/dL Very High > or = 500 mg/dL 84-Rzh-294665:59 HgA1C , Office (76153) HgA1C , Office 6.4 % (Normal) Range: 4.6 - 7.1 :59 Blood Glucose , Office (05998) Blood Glucose , Office 143 (Normal) 45-Hjx-884433:31 LIPID CHOL 188 mg/dL (Normal) Comments: <200 mg/dL Desirable 200-240 mg/dL Borderline >240 mg/dL High Risk HDL 35 mg/dL (Normal) Comments: Reference Range HDL <40 mg/dL Low HDL Cholesterol HDL >or= 60 mg/dL High HDL Cholesterol LDL 104 mg/dL (Normal) Range: 0-130 TRIG 247 mg/dL (Abnormal) Comments: Serum Triglycerides Reference Interval Normal <150 mg/dL Borderline high 150 - 199 mg/dL High 200 - 499 mg/dL Very High > or = 500 mg/dL VLDL 49 mg/dL (Abnormal) Range: 5-40 :31 LIVER ALB 3.6 g/dL (Normal) Range: 3.4-5.0 ALK P 41 U/L (Abnormal) Range: 50-136 ALT 37 U/L (Normal) Range: 30-65 AST 19 U/L (Normal) Range: 15-37 D BILI 0.15 mg/dL (Normal) Range: 0.00-0.30 T BILI 0.50 mg/dL (Normal) Range: 0.00-1.00 T PROT 7.0 g/dL (Normal) Range: 6.4-8.2 27-Zxe-36923:30 UPPER GI SERIES ONLY Radiology Report See Note (Normal) Comments: Exam Number: [id number] UPPER GI SERIES HISTORYThe patient is a 68-year-old man with a history of epigastric pain. Barium passed through the esophagus without delay. Distally, theappearance of the eso phagus was variable. There is likely a smallhiatal hernia. The possibility of a thickened posteriorly locatedfold is also raised. For that reason, endoscopy was suggested. Noabnormality of the gastr ic body or fundus is identified. The antrumdid not distend normally throughout the examination. Peristalticwaves were not seen to pass normally through it. There is mucosalirregularity of the distal antrum. The appearance is very suspicious.Due to the incomplete distention, the possibility of an infiltratingneoplasm must be considered. There is deformity of the base of theduodenal bulb which may represent extension of disease from theantrum or be due to acute or chronic ulcer disease. IMPRESSIONThe antrum did not distend normally during the examination. Mucosalfolds did not pass normally throu gh it. There are images thatdemonstrate irregularity of the mucosa distally. This could representulcer disease. However, the lack of distendability is suspicious formalignancy. The duodenal bulb is also mildly deformed. There is apossible thickened fold at the distal extent of the esophagus. Endoscopy is needed. Reported By: PARADISE HAUSER M.D. 97-Cwl-183187:39 HgA1C , Office (13549) HgA1C , Office 6.2 % (Normal) Range: 4.6 - 7.1 42-Pzf-931782:39 Blood Glucose , Office (35521) Blood Glucose , Office 218 (Normal) 79-Veu-135028:09 Metabolic Panel, Comprehensive Comments: PATIENT WAS FASTINGClinical Information: ADD DRAW FEE [id number] ADD J 77477 PERFORMED BY: ALFONSO [employer] [facility] [id number] (25704) A/G Ratio 1.6 (Normal) Range: 1.1-2.5 Albumin, Serum 4.2 g/dL (Normal) Range: 3.6-4.8 Alkaline Phosphatase, S 47 [iU]/L (Normal) Range: 25-160 ALT (SGPT) 27 [iU]/L (Normal) Range: 0-55 AST (SGOT) 25 [iU]/L (Normal) Range: 0-40 Bilirubin, Total 0.7 mg/dL (Normal) Range: 0.1-1.2 BUN 19 mg/dL (Normal) Range: 5-26 BUN/Creatinine Ratio 20 (Normal) Range: 8-27 Calcium, Serum 9.9 mg/dL (Normal) Range: 8.5-10.6 Carbon Dioxide, Total 24 mmol/L (Normal) Range: 20-32 Chloride, Serum 99 mmol/L (Normal) Range: 97-108 Creatinine, Serum 0.93 mg/dL (Normal) Range: 0.76-1.27 eGFR >59 mL/min/1.73 (Normal) eGFR AfricanAmerican >59 mL/min/1.73 Comments: Note: Persistent reduction for 3 months or more in an eGFR<60 mL/min/1.73 m2 defines CKD. Patients with eGFR values>/=60 mL/min/1.73 m2 may also have CKD if evidence of persistentproteinuria is (Normal) present. Additional information may be found [email or web address]. Globulin, Total 2.6 g/dL (Normal) Range: 1.5-4.5 Glucose, Serum 145 mg/dL (Abnormal) Range: 65-99 Potassium, Serum 4.2 mmol/L (Normal) Range: 3.5-5.2 Protein, Total, Serum 6.8 g/dL (Normal) Range: 6.0-8.5 Sodium, Serum 138 mmol/L (Normal) Range: 135-145 70-Ybs-153962:09 Lipid Panel (35013) Comments: in three months (approximately); PATIENT WAS FASTINGPERFORMED BY: ALFONSO [id number] [facility] [id number] Cholesterol, Total 215 mg/dL (Abnormal) Range: 100-199 Comment SPRCS (Normal) Comments: If initial LDL-cholesterol result is >100 mg/dL, assess forrisk factors. HDL Cholesterol 37 mg/dL (Abnormal) Comments: According to ATP-III Guidelines, HDL-C >59 mg/dL is considered anegative risk factor for CHD. LDL Cholesterol Calc 116 mg/dL (Abnormal) Range: 0-99 LDL/HDL Ratio 3.1 {ratio_units} (Normal) Range: 0.0-3.6 Triglycerides 309 mg/dL (Abnormal) Range: 0-149 VLDL Cholesterol Wlalace 62 mg/dL (Abnormal) Range: -40 :37 HgA1C , Office (05131) HgA1C , Office 6.3 % (Normal) Range: 4.6 - 7.1 :37 Blood Glucose , Office (44206) Blood Glucose , Office 160 (Normal) :37 LIPID CHOL 207 mg/dL (Abnormal) Comments: <200 mg/dL Desirable 200-240 mg/dL Borderline >240 mg/dL High Risk HDL 36 mg/dL (Normal) Comments: Reference Range HDL <40 mg/dL Low HDL Cholesterol HDL >or= 60 mg/dL High HDL Cholesterol LDL 128 mg/dL (Normal) Range: 0-130 TRIG 213 mg/dL (Abnormal) Comments: Serum Triglycerides Reference Interval Normal <150 mg/dL Borderline high 150 - 199 mg/dL High 200 - 499 mg/dL Very High > or = 500 mg/dL VLDL 43 mg/dL (Abnormal) Range: -40 :32 HgA1C , Office (39063) HgA1C , Office 5.8 % (Normal) Range: 4.6 - 7.1 :32 Blood Glucose , Office (16685) Blood Glucose , Office 112 (Normal) :39 BMP BUN 18 mg/dL (Normal) Range: 7-18 BUN/CRE 22.5 {RATIO} (Abnormal) Range: 10-20 CA 9.4 mg/dL (Normal) Range: 8.5-10.1 CL 102 mmol/L (Normal) Range: 98-107 CO2 27.6 mmol/L (Normal) Range: 21.0-32.0 CREAT,SERUM 0.8 mg/dL (Normal) Range: 0.8-1.3 GAP 8 (Normal) Range: 5-15 GLU 125 mg/dL (Abnormal) Range: 70-110 Comments: Fasting Glucose result from 110 to <126 mg/dL suggests IMPAIRED HOMEOSTASIS per A.D.A. criteria. K 4.2 mmol/L (Normal) Range: 3.5-5.1 NA 138 mmol/L (Normal) Range: 136-145 :36 HgA1C , Office (53450) HgA1C , Office 6.3 % (Normal) Range: 4.6 - 7.1 :36 Blood Glucose , Office (27415) Blood Glucose , Office 89 (Normal) :20 CBCD BASO% 0.4 % (Normal) Range: 0-1 EO% 4.2 % (Normal) Range: 0-5 HCT 39.1 % (Abnormal) Range: 40-54 HGB 13.7 g/dL (Abnormal) Range: 14.0-18.0 LY% 33.9 % (Normal) Range: 19-41 MCH 30.9 pg (Normal) Range: 27.0-32.0 MCHC 35.0 g/dL (Normal) Range: 32-36 MCV 88.3 fL (Normal) Range: 80-94 MONO% 7.5 % (Normal) Range: 0-10 MPV 8.7 fL (Normal) Range: 6.5-12.0 NEUT% 54.0 % (Normal) Range: 47-70 PLT 226 K/mm3 (Normal) Range: 150-450 RBC 4.43 {M/mm3} (Abnormal) Range: 4.6-6.2 RDW 13.6 % (Normal) Range: 11.6-14.6 WBC 9.5 K/mm3 (Normal) Range: 4.4-11.0 :20 COMP METABOLIC A/G 1.2 {RATIO} (Normal) Range: 0.9-2.4 ALB 3.8 g/dL (Normal) Range: 3.4-5.0 ALK P 42 U/L (Abnormal) Range: 50-136 ALT 37 U/L (Normal) Range: 30-65 AST 22 U/L (Normal) Range: 15-37 BUN 28 mg/dL (Abnormal) Range: 7-18 BUN/CRE 28.0 {RATIO} (Abnormal) Range: 10-20 CA 9.1 mg/dL (Normal) Range: 8.5-10.1 CL 101 mmol/L (Normal) Range: 98-107 CO2 27.1 mmol/L (Normal) Range: 21.0-32.0 CREAT,SERUM 1.0 mg/dL (Normal) Range: 0.8-1.3 GAP 7 (Normal) Range: 5-15 GLOB 3.2 g/dL (Normal) Range: 2.7-4.2 GLU 156 mg/dL (Abnormal) Range: 70-110 Comments: Fasting Glucose result greater than or equal to 126 mg/dL suggests DIABETES MELLITUS per A.D.A. criteria. K 3.9 mmol/L (Normal) Range: 3.5-5.1 NA 135 mmol/L (Abnormal) Range: 136-145 T BILI 0.53 mg/dL (Normal) Range: 0.00-1.00 T PROT 7.0 g/dL (Normal) Range: 6.4-8.2 :20 LIPID CHOL 141 mg/dL (Normal) Comments: <200 mg/dL Desirable 200-240 mg/dL Borderline >240 mg/dL High Risk HDL 34 mg/dL (Abnormal) Comments: Reference Range HDL <40 mg/dL Low HDL Cholesterol HDL >or= 60 mg/dL High HDL Cholesterol LDL 76 mg/dL (Normal) Range: 0-130 TRIG 153 mg/dL (Normal) Comments: Serum Triglycerides Reference Interval Normal <150 mg/dL Borderline high 150 - 199 mg/dL High 200 - 499 mg/dL Very High > or = 500 mg/dL VLDL 31 mg/dL (Normal) Range: 5-40 :26 Blood Glucose , Office (33872) Blood Glucose , Office 75 (Normal) :26 HgA1C , Office (00371) HgA1C , Office 5.4 % (Normal) Range: 4.6 - 7.1 :51 LIPID CHOL 139 mg/dL (Normal) Comments: <200 mg/dL Desirable 200-240 mg/dL Borderline >240 mg/dL High Risk HDL 36 mg/dL (Normal) Comments: Reference Range HDL <40 mg/dL Low HDL Cholesterol HDL >or= 60 mg/dL High HDL Cholesterol LDL 78 mg/dL (Normal) Range: 0-130 TRIG 123 mg/dL (Normal) Comments: Serum Triglycerides Reference Interval Normal <150 mg/dL Borderline high 150 - 199 mg/dL High 200 - 499 mg/dL Very High > or = 500 mg/dL VLDL 25 mg/dL (Normal) Range: 5-40 04-Oer-072671:51 LIVER ALB 3.8 g/dL (Normal) Range: 3.4-5.0 ALK P 40 U/L (Abnormal) Range: 50-136 ALT 39 [iU]/L (Normal) Range: 30-65 AST 29 U/L (Normal) Range: 15-37 D BILI 0.07 mg/dL (Normal) Range: 0.00-0.30 T BILI 0.67 mg/dL (Normal) Range: 0.00-1.00 T PROT 7.2 g/dL (Normal) Range: 6.4-8.2 :12 KNEE,4 OR MORE VIEWS Radiology Report See Note (Normal) Comments: Exam Number: [id number] 4 VIEWS OF THE LEFT KNEE AP, lateral, tunnel view, patellar view. Being done for trauma nowhaving pain. There is moderate narrowing in the medial aspect of the knee. There ispoin ting of the tibial spines. No fracture or effusion is noted. There is spur formation in the superior and inferior articulatingaspects of the patella. If the patient persists at being symptomatic,repea t study in 5 to 7 days is suggested. IMPRESSIONModerate degenerative changes. Reported By: NINFA BROTHERS M.D. :04 HgA1C , Office (45879) HgA1C , Office 5.1 % (Normal) Range: 4.6 - 7.1 :04 Blood Glucose , Office (35436) Blood Glucose , Office 163 (Normal) 76-Ase-991180:36 COMP METABOLIC A/G 1.1 {RATIO} (Normal) Range: 0.9-2.4 ALB 3.8 g/dL (Normal) Range: 3.4-5.0 ALK P 48 U/L (Abnormal) Range: 50-136 ALT 43 [iU]/L (Normal) Range: 30-65 AST 21 U/L (Normal) Range: 15-37 BUN 21 mg/dL (Abnormal) Range: 7-18 BUN/CRE 23.3 {RATIO} (Abnormal) Range: 10-20 CA 9.6 mg/dL (Normal) Range: 8.5-10.1 CL 100 mmol/L (Normal) Range: 98-107 CO2 28.8 mmol/L (Normal) Range: 21.0-32.0 Comments: Please Note Reference Interval Change CREAT,SERUM 0.9 mg/dL (Normal) Range: 0.8-1.3 GAP 8 (Normal) Range: 5-15 GLOB 3.6 g/dL (Normal) Range: 2.7-4.2 Comments: Please Note Reference Interval Change GLU 119 mg/dL (Abnormal) Range: 70-110 Comments: Fasting Glucose result from 110 to <126 mg/dL suggests IMPAIRED HOMEOSTASIS per A.D.A. criteria. K 3.8 mmol/L (Normal) Range: 3.5-5.1 NA 137 mmol/L (Normal) Range: 136-145 T BILI 0.54 mg/dL (Normal) Range: 0.00-1.00 T PROT 7.4 g/dL (Normal) Range: 6.4-8.2 :36 LIPID CHOL 201 mg/dL (Abnormal) Comments: <200 mg/dL Desirable 200-240 mg/dL Borderline >240 mg/dL High Risk HDL 37 mg/dL (Normal) Comments: Reference Range HDL <40 mg/dL Low HDL Cholesterol HDL >or= 60 mg/dL High HDL Cholesterol LDL 118 mg/dL (Normal) Range: 0-130 TRIG 228 mg/dL (Abnormal) Comments: Serum Triglycerides Reference Interval Normal <150 mg/dL Borderline high 150 - 199 mg/dL High 200 - 499 mg/dL Very High > or = 500 mg/dL VLDL 46 mg/dL (Abnormal) Range: 5-40 :36 PSA, DIAGNOSTIC 6.5 ng/mL (Abnormal) Range: 0.0-4.0 Comments: This test was performed using the TPSA method for the[employer] chemistry system.Values obtained with different assay methods cannot be usedinterchangably.When changing PSA assays in the course of monito ring apatient, additional sequential testing should be carriedout to confirm baseline values. :27 HgA1C , Office (21259) HgA1C , Office 6.5 % (Normal) Range: 4.6 - 7.1 :27 Blood Glucose , Office (12865) Blood Glucose , Office 90 (Normal) :18 COMP METABOLIC A/G 1.2 {RATIO} (Normal) Range: 0.9-2.4 ALB 4.0 g/dL (Normal) Range: 3.4-5.0 ALK P 51 U/L (Normal) Range: 50-136 ALT 35 [iU]/L (Normal) Range: 30-65 AST 22 U/L (Normal) Range: 15-37 BUN 26 mg/dL (Abnormal) Range: 7-18 BUN/CRE 23.6 {RATIO} (Abnormal) Range: 10-20 CA 9.3 mg/dL (Normal) Range: 8.5-10.1 CL 101 mmol/L (Normal) Range: 98-107 CO2 28.8 mmol/L (Normal) Range: 21.0-32.0 Comments: Please Note Reference Interval Change CREAT,SERUM 1.1 mg/dL (Normal) Range: 0.8-1.3 GAP 10 (Normal) Range: 5-15 GLOB 3.4 g/dL (Normal) Range: 2.7-4.2 Comments: Please Note Reference Interval Change GLU 98 mg/dL (Normal) Range: 70-110 K 4.1 mmol/L (Normal) Range: 3.5-5.1 NA 140 mmol/L (Normal) Range: 136-145 T BILI 0.61 mg/dL (Normal) Range: 0.00-1.00 T PROT 7.4 g/dL (Normal) Range: 6.4-8.2 :18 LIPID CHOL 175 mg/dL (Normal) Comments: <200 mg/dL Desirable 200-240 mg/dL Borderline >240 mg/dL High Risk HDL 31 mg/dL (Abnormal) Comments: Reference Range HDL <40 mg/dL Low HDL Cholesterol HDL >or= 60 mg/dL High HDL Cholesterol LDL 113 mg/dL (Normal) Range: 0-130 TRIG 155 mg/dL (Normal) Comments: Serum Triglycerides Reference Interval Normal <150 mg/dL Borderline high 150 - 199 mg/dL High 200 - 499 mg/dL Very High > or = 500 mg/dL VLDL 31 mg/dL (Normal) Range: 5-40 :09 HgA1C , Office (72727) HgA1C , Office 5.4 % (Normal) Range: 4.6 - 7.1 :09 Blood Glucose , Office (91412) Blood Glucose , Office 105 (Normal) :03 LIPID CHOL 218 mg/dL (Abnormal) Comments: <200 mg/dL Desirable 200-240 mg/dL Borderline >240 mg/dL High Risk HDL 35 mg/dL (Normal) Comments: Reference Range HDL <40 mg/dL Low HDL Cholesterol HDL >or= 60 mg/dL High HDL Cholesterol LDL 141 mg/dL (Abnormal) Range: 0-130 TRIG 211 mg/dL (Abnormal) Comments: Serum Triglycerides Reference Interval Normal <150 mg/dL Borderline high 150 - 199 mg/dL High 200 - 499 mg/dL Very High > or = 500 mg/dL VLDL 42 mg/dL (Abnormal) Range: 5-40 :03 PSA, DIAGNOSTIC 5.1 ng/mL (Abnormal) Range: 0.0-4.0 Comments: This test was performed using the TPSA method [facility] the[facility] ([place], [place]) chemistry system.Values obtained with different assay methods cannot be usedinterchangably.When changing PSA assays in the course of monito ring apatient, additionaly sequential testing should be carriedout to confirm baseline values. :03 PSAT+%FR 236056 PSA, FREE 0.44 ng/mL (Normal) Comments: [employer] Immunoassay Methodology PSA, FREE % 8.3 % (Normal) Comments: The table below lists the probability of prostate cancer formen with non-suspicious DARRICK results and total PSA between4 and 10 ng/mL, by patient age (Handy et al, MICHELLE 1998,279:1542). % Free PSA 50-64 yr 65-75 yr 0.00-10.00% 56% 55% 10.01-15.00% 24% 35% 15.01-20.00% 17% 23% 20.01-25.00% 10% 20% >25.00% 5% 9%Please note: Handy et al did not make specific recommendations regarding the use of percent free PSA for any other population of men.Performed At: [facility] [place], [place] [id number] PSA, TOTAL 5.3 ng/mL (Abnormal) Range: 0.0-4.0 Comments: [facility] [employer] ICMA methodology :47 CBCD,SMEAR DIFF BAND 3 % (Normal) Range: 0-5 CELLS COUNTED 100 (Normal) EOS 4 % (Normal) Range: 0-5 HCT 42.7 % (Normal) Range: 40-54 HGB 14.7 g/dL (Normal) Range: 14.0-18.0 LYMPH 21 % (Normal) Range: 19-41 MCH 30.6 pg (Normal) Range: 27.0-32.0 MCHC 34.4 g/dL (Normal) Range: 32-36 MCV 89.0 fL (Normal) Range: 80-94 MONOCYTE 6 % (Normal) Range: 0-10 PLT 229 K/mm3 (Normal) Range: 150-450 PLT EST SeeNote (Normal) Comments: Result: ADEQUATE RBC 4.79 {M/mm3} (Normal) Range: 4.6-6.2 RDW 12.9 % (Normal) Range: 11.6-14.6 REACTIVE LYMPH 1+ (Normal) RED CELL MORPH SeeNote {NORMAL} (Normal) Comments: Result: NORM C&C SEGS 66 % (Normal) Range: 47-70 WBC 9.1 K/mm3 (Normal) Range: 4.4-11.0 :47 COMP METABOLIC Comments: se follow up A/G 1.1 {RATIO} (Normal) Range: 0.9-2.4 ALB 3.7 g/dL (Normal) Range: 3.4-5.0 ALK P 42 U/L (Abnormal) Range: 50-136 ALT 46 [iU]/L (Normal) Range: 30-65 AST 22 U/L (Normal) Range: 15-37 BUN 18 mg/dL (Normal) Range: 7-18 BUN/CRE 20.0 {RATIO} (Normal) Range: 10-20 CA 9.2 mg/dL (Normal) Range: 8.5-10.1 CL 103 mmol/L (Normal) Range: 98-107 CO2 29.3 mmol/L (Abnormal) Range: 22.0-29.0 CREAT,SERUM 0.9 mg/dL (Normal) Range: 0.8-1.3 GAP 7 (Normal) Range: 5-15 GLOB 3.5 g/dL (Normal) Range: 2.3-3.5 GLU 189 mg/dL (Abnormal) Range: 70-110 Comments: Fasting Glucose result greater than or equal to 126 mg/dL suggests DIABETES MELLITUS per A.D.A. criteria. K 4.1 mmol/L (Normal) Range: 3.5-5.1 NA 139 mmol/L (Normal) Range: 136-145 T BILI 0.60 mg/dL (Normal) Range: 0.00-1.00 T PROT 7.2 g/dL (Normal) Range: 6.4-8.2 :47 LIPID CHOL 189 mg/dL (Normal) Comments: <200 mg/dL Desirable 200-240 mg/dL Borderline >240 mg/dL High Risk HDL 33 mg/dL (Abnormal) Comments: Reference Range HDL <40 mg/dL Low HDL Cholesterol HDL >or= 60 mg/dL High HDL Cholesterol LDL 113 mg/dL (Normal) Range: 0-130 TRIG 213 mg/dL (Abnormal) Comments: Serum Triglycerides Reference Interval Normal <150 mg/dL Borderline high 150 - 199 mg/dL High 200 - 499 mg/dL Very High > or = 500 mg/dL VLDL 43 mg/dL (Abnormal) Range: 5-40 :47 MICROALB:CRE UR MALB:CREAT 16.4 {mg/g_CRE} (Normal) MICROALBUMIN,UR 20.1 mg/L (Normal) UR CREAT 122.3 mg/dL (Normal) :47 PSA,TOT SCREEN 4.83 ng/mL (Abnormal) Range: 0.00-4.00 Comments: This test was performed using the TPSA method for the[employer] [facility] chemistry system.Values obtained with different assay methods cannot be usedinterchangably.When changing PSA assays in the course of monito ring apatient, additionaly sequential testing should be carriedout to confirm baseline values. :32 Blood Glucose , Office (51945) Blood Glucose , Office 154 (Normal) :32 HgA1C , Office (35463) HgA1C , Office 8.2 % (Abnormal) Range: 4.6 - 7.1 Plan of Care Name Dates Details Instructions Personal history of malignant neoplasm of prostate : Follow up in 4 months Indication: Personal history of malignant neoplasm of prostate BMI 38.0-38.9,adult : Follow up in 4 months Indication: BMI 38.0-38.9,adult Uncontrolled diabetes mellitus type 2 without complications, unspecified long-term insulin use status : Eprescribed prescriptions (G8553) Indication: Uncontrolled diabetes mellitus type 2 without complications, unspecified manager long term care insulin use status BMI 39.0-39.9,adult : Follow up in about 4 months Indication: BMI 39.0-39.9,adult Diabetes mellitus type II, controlled : Reviewed Lab Indication: Diabetes mellitus type II, controlled Hypertension, benign : Reviewed Diagnostic Tests Indication: Hypertension, benign Diabetes mellitus type II, controlled : Eprescribed prescriptions (G8553) Indication: Diabetes mellitus type II, controlled Vitamin D deficiency, unspecified : Follow up in 3-4 months Indication: Vitamin D deficiency, unspecified Uncontrolled diabetes mellitus type 2 without complications, unspecified manager long term care insulin use status : Eprescribed prescriptions (G8553) Indication: Uncontrolled diabetes mellitus type 2 without complications, unspecified manager long term care insulin use status Hypertension, benign : Follow up in 3 months Indication: Hypertension, benign Hypertension, benign : Diet, Exercise, and Wt loss Indication: Hypertension, benign Personal history of malignant neoplasm of prostate : Reviewed Diagnostic Tests Indication: Personal history of malignant neoplasm of prostate Hematuria : Reviewed Lab Indication: Hematuria Uncontrolled diabetes mellitus type 2 without complications, unspecified manager long term care insulin use status : Eprescribed prescriptions (G8553) Indication: Uncontrolled diabetes mellitus type 2 without complications, unspecified long-term insulin use status Current nonsmoker (Renamed from Current non-smoker) : Eprescribed prescriptions (G8553) Indication: Current nonsmoker (Renamed from Current non-smoker) Hypertension, benign : HTN/CAD Red Flags Indication: Hypertension, benign Diabetes mellitus type II, controlled : Diabetes and Exercise: Preventing Low Blood Sugar: blood sugar Indication: Diabetes mellitus type II, controlled Uncontrolled diabetes mellitus type 2 without complications, unspecified manager long term care insulin use status : Eprescribed prescriptions (G8553) Indication: Uncontrolled diabetes mellitus type 2 without complications, unspecified manager long term care insulin use status Uncontrolled diabetes mellitus type 2 without complications, unspecified manager long term care insulin use status : Follow up in 2 weeks Indication: Uncontrolled diabetes mellitus type 2 without complications, unspecified manager long term care insulin use status Uncontrolled diabetes mellitus type 2 without complications, unspecified manager long term care insulin use status : Diet, Exercise, and Wt loss Indication: Uncontrolled diabetes mellitus type 2 without complications, unspecified manager long term care insulin use status Uncontrolled diabetes mellitus type 2 without complications, unspecified manager long term care insulin use status : *Diabetes Education Indication: Uncontrolled diabetes mellitus type 2 without complications, unspecified long-term insulin use status BMI 37.0-37.9, adult : Eprescribed prescriptions (G8553) Indication: BMI 37.0-37.9, adult Body mass index 38.0-38.9, adult : Follow up in 2 weeks Indication: Body mass index 38.0-38.9, adult Need for prophylactic vaccination and inoculation against influenza : Follow up in 3 months gen med Indication: Need for prophylactic vaccination and inoculation against influenza Need for prophylactic vaccination and inoculation against influenza : Follow up in 1 month Indication: Need for prophylactic vaccination and inoculation against influenza Aphasia as late effect of cerebrovascular accident : Follow up in 3 months Indication: Aphasia as late effect of cerebrovascular accident Hypertension : Reviewed Lab Indication: Hypertension Vitamin D deficiency, unspecified : Reviewed Lab Indication: Vitamin D deficiency, unspecified Pure hypercholesterolemia : Reviewed Lab Indication: Pure hypercholesterolemia Diabetes mellitus type II, controlled : Blood Glucose Test: blood Indication: Diabetes mellitus type II, controlled Hypertension : Eprescribed prescriptions (G8553) Indication: Hypertension Pure hypercholesterolemia : Blood Pressure: hypertension Indication: Pure hypercholesterolemia Pure hypercholesterolemia : Eprescribed prescriptions (G8553) Indication: Pure hypercholesterolemia Bronchitis : *URI Treatment Indication: Bronchitis Bronchitis : *URI Symptoms Indication: Bronchitis Bronchitis : *Antibiotic Usage Education - Female Indication: Bronchitis Diabetes mellitus type II, controlled : Eprescribed prescriptions (G8553) Indication: Diabetes mellitus type II, controlled Diabetes mellitus type II, controlled : Eprescribed prescriptions (G8553) Indication: Diabetes mellitus type II, controlled Diabetes mellitus type II, controlled : Diabetes and Exercise: Preventing Low Blood Sugar: blood sugar Indication: Diabetes mellitus type II, controlled Diabetes mellitus type II, controlled : Eprescribed prescriptions (G8553) Indication: Diabetes mellitus type II, controlled Need for prophylactic vaccination and inoculation against influenza : Flu (Influenza) *: flu shot Indication: Need for prophylactic vaccination and inoculation against influenza Need for prophylactic vaccination and inoculation against influenza : Flu (Influenza) *: flu shot Indication: Need for prophylactic vaccination and inoculation against influenza Pure hypercholesterolemia : Follow up Indication: Pure hypercholesterolemia CVA (cerebral infarction) : 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 Indication: CVA (cerebral infarction) Cough : Follow up if no improvement or if symptoms worsen Indication: Cough Diabetes mellitus type II, controlled : Diabetes Overview (Living with Diabetes): diabetes type 2 Indication: Diabetes mellitus type II, controlled Diabetes mellitus type II, controlled : Diabetes Overview (Living with Diabetes): type 2 diabetes mellitus Indication: Diabetes mellitus type II, controlled OSTEOARTHROSIS NOS, LOWER LEG : Euflexxa injection Indication: OSTEOARTHROSIS NOS, LOWER LEG Osteoarthrosis, not specified whether generalized/localized, lower leg : Euflexxa injection Indication: Osteoarthrosis, not specified whether generalized/localized, lower leg Osteoarthrosis, not specified whether generalized/localized, lower leg : Euflexxa injection Indication: Osteoarthrosis, not specified whether generalized/localized, lower leg Knee pain : Knee Injections Indication: Knee pain Wheezing : FOLLOW UP NEEDED Indication: Wheezing Bronchitis : *URI Treatment Indication: Bronchitis Bronchitis : *URI Symptoms Indication: Bronchitis Bronchitis : *Antibiotic Usage Education - Female Indication: Bronchitis Diabetes mellitus type II, controlled : Reviewed Lab Indication: Diabetes mellitus type II, controlled Pure hypercholesterolemia : Reviewed Lab Indication: Pure hypercholesterolemia Actinic keratosis : Cryotherapy Indication: Actinic keratosis Knee pain : supartz injection Indication: Knee pain Knee pain : supartz injection Indication: Knee pain Knee pain : supartz injection Indication: Knee pain Knee pain : supartz injection Indication: Knee pain Diabetes mellitus type II, controlled : FOLLOW UP IN 3 MONTHS Indication: Diabetes mellitus type II, controlled Knee pain : Knee Injections Indication: Knee pain Pure hypercholesterolemia : Cholesterol - Nonprescription Treatment Indication: Pure hypercholesterolemia Pure hypercholesterolemia : FOLLOW UP IN 3 MONTHS Indication: Pure hypercholesterolemia Diabetes mellitus type II, controlled : Follow up after lab work completed Indication: Diabetes mellitus type II, controlled Planned Observations MICROALBUMIN: CREATININE RATIO ([id number]) AND ([id number])Indication: Hypertension, benign On: 4-Pzb-683446:59 Request TSH ([id number])Indication: Hypertension, benign On: 2-Vpw-704310:59 Request CBC, Platelets & Auto Diff ([id number])Indication: Diabetes mellitus type II, controlled On: 3-Enn-885639:58 Request Metabolic Panel, Comprehensive (36231)Indication: Diabetes mellitus type II, controlled On: :58 Request HgA1C , Office (74821)Indication: Diabetes mellitus type II, controlled On: 40-Sjg-246683:25 Request Blood Glucose , Office (51026)Indication: Diabetes mellitus type II, controlled On: 71-Uyw-979781:25 Request MICROALBUMIN: CREATININE RATIO ([id number]) AND ([id number])Indication: Diabetes mellitus type II, controlled On: :43 Request URINALYSIS, W/ MICRO (01901)Indication: Diabetes mellitus type II, controlled On: :54 Request MICROALBUMIN: CREATININE RATIO ([id number]) AND (71306)Indication: Diabetes mellitus type II, controlled On: :53 Request MICROALBUMIN: CREATININE RATIO ([id number]) AND (65430)Indication: Diabetes mellitus type II, controlled On: :46 Request Blood Glucose , Office (00411)Indication: Diabetes mellitus type II, controlled On: 82-Fey-919963:11 Request CALCIFIDIOL (75990) VIT D 25Indication: Vitamin D deficiency, unspecified On: 36-Nkq-902845:42 Request Metabolic Panel, Comprehensive (79171)Indication: Diabetes mellitus type II, controlled On: 44-Ivg-911475:34 Request Lipid Panel (54990)Indication: Diabetes mellitus type II, controlled On: :33 Request CALCIFIDIOL (90334) VIT D 25Indication: Vitamin D deficiency, unspecified On: 52-Giu-708126:33 Request CALCIFEDIOL (70838)Indication: Vitamin D deficiency, unspecified On: 03-Eay-665297:44 Request Comments: draw after done with Vitamin D CBC (Auto) (57234)Indication: Pure hypercholesterolemia On: :33 Request Metabolic Panel, Comprehensive (80543)Indication: Pure hypercholesterolemia On: 99-Bgc-740150:33 Request Lipid Panel (71591)Indication: Pure hypercholesterolemia On: 09-Grj-239691:33 Request Metabolic Panel, Comprehensive (28712)Indication: Pure hypercholesterolemia On: 12-Oka-366721:25 Request Lipid Panel (30553)Indication: Pure hypercholesterolemia On: 88-Ulv-097820:25 Request Comments: in three months (approximately) HEPATIC FUNCTION PANEL (46812)Indication: Pure hypercholesterolemia On: :57 Request Comments: in three months (approximately) Lipid Panel (59939)Indication: Pure hypercholesterolemia On: 97-Uuq-391491:57 Request Lipid Panel ([id number])Indication: Pure hypercholesterolemia On: 45-Umw-805232:52 Request Metabolic Panel, Basic (21943)Indication: Hypertension On: 27-Cbs-708123:59 Request Comments: sodium low CBC (Auto) (56698)Indication: Pure hypercholesterolemia On: :45 Request Metabolic Panel, Comprehensive ([id number])Indication: Pure hypercholesterolemia On: :45 Request Lipid Panel (56383)Indication: Pure hypercholesterolemia On: :45 Request LIPID PANEL (97287)Indication: Pure hypercholesterolemia On: :41 Request HEPATIC FUNCTION PANEL (08265)Indication: Pure hypercholesterolemia On: 33-Dyo-366891:41 Request Comments: in three months (approximately) PSA (PROSTATE SPECIFIC ANTIGEN) (87755)Indication: Elevated PSA On: 55-Sua-754569:15 Request Metabolic Panel, Comprehensive ([id number])Indication: Hypertension On: 12-Fwt-918415:14 Request Lipid Panel (43687)Indication: Hypertension On: 94-Onp-923890:14 Request Metabolic Panel, Comprehensive (60170)Indication: Pure hypercholesterolemia On: 36-Waf-401031:31 Request Lipid Panel (52778)Indication: Pure hypercholesterolemia On: 00-Owe-393974:30 Request PSA (Prostate Specific Antigen), Diagnostic (29083)Indication: Elevated PSA On: 85-Lmv-286767:40 Request Comments: along with free Lipid Panel (86970)Indication: Pure hypercholesterolemia On: 22-Ofb-035941:40 Request Comments: in three months PSA (PROSTATE SPECIFIC ANTIGEN) (81248)Indication: Encounter for routine history and physical exam for male On: :24 Request MICROALBUMIN: CREATININE RATIO ([id number]) AND (43810)Indication: Diabetes mellitus type II, controlled On: 79-Rre-611241:17 Request METABOLIC PANEL, COMPREHENSIVE (93795)Indication: Diabetes mellitus type II, controlled On: :17 Request LIPID PANEL (56828)Indication: Diabetes mellitus type II, controlled On: :17 Request CBC WITH MANUAL DIFF ([id number])Indication: Diabetes mellitus type II, controlled On: :17 Request Comments: all not routine Planned Encounters Medical; 4 Month FU - On: 02-Aug-2018 13:30 [facility] Ciesa BLIND LACER, Livia Ciesa BLIND LACER, Livia Planned Procedures Flu Vaccine (Quadrivalent) 96132Xn: On: 13-Jul-2017 Intent Ciesa BLIND LACER, Livia Ciesa BLIND LACER, Livia Aerosol Treatment ([id number])By: Gonsalo On: 06-Oct-2016 Intent Milli WATSON Flu Vaccine (Quadrivalent) 53969Hi: On: 16-May-2016 Intent Ciesa BLIND LACER, Livia Ciesa BLIND LACER, Livia Aerosol Treatment (68087)By: Asya On: 02-Jul-2015 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 Carotid DopplerBy: Milli Jackson MD On: 28-May-2015 Intent M ADMINISTRATION OF INFLUENZA VIRUS On: 28-May-2015 Intent VACCINE (G0008)By: Milli Jackson MD Flu Vaccine (Quadrivalent) 32487Ae: On: 28-May-2015 Intent Milli Jackson MD Comments: Lot #:[id number] date:Amount given:0.5mlRoute: IMSite given:L DltdGiven by: Ashly GLASER and ABN signed Quad Flu Pneumovax (03297)By: Hailey Bernard On: 26-May-2014 Intent ADMINISTRATION OF PNEUMOCOCCAL On: 26-May-2014 Intent VACCINE (G0009)By: Milli Jackson MD Comments: lot [id number] R armroute imgiven by - [facility] [place] and/or ABN signed M PNEUM VAC ADLT/IMUMNOSPR, SBC/INTRM On: 26-May-2014 Intent ([id number])By: Hailey Bernard ADMINISTRATION OF INFLUENZA VIRUS On: 26-May-2014 Intent VACCINE (G0008)By: Visit, Nurse FLU VAC, SPLIT, >3 YEARS, INTRAMUSC On: 26-May-2014 Intent ([id number])By: Milli Jackson MD Comments: Lot:[id number]:02/13/15Dose:0.5mLRoute:IMSite:L DltdGiven By:VINOD signed COMPUTED TOMOGRAPHY ANGIOGRAPHY OF On: 17-Oct-2013 Intent NECK WITH AND WITHOUT CONTRAST ([id number])By: Milli Jackson MD ADMINISTRATION OF PNEUMOCOCCAL On: 11-Oct-2013 Intent VACCINE (G0009)By: Milli Jackson MD PNEUM VAC ADLT/IMUMNOSPR, SBC/INTRM On: 11-Oct-2013 Intent (05448)By: Milli Jackson MD Comments: lot: [id number]: 10/02/14site/route: L del/IMamt:0.5mLVIS signed when applicableChelsestee, GUILLE Carotid DopplerBy: Milli Jackson MD On: 11-Oct-2013 Intent Prasanth MRI - BrainBy: Milli Jackson MD On: 11-Oct-2013 Intent Comments: with MRA of brain. pt has titanium knee replacement verify that can have Eprescribed prescriptions (G8553)By: On: 11-Oct-2013 Intent Milli Jackson MD FLU VAC, SPLIT, >3 YEARS, INTRAMUSC On: 11-Jul-2013 Intent ([id number])By: ANGÉLICA Laureano Comments: Lot #:[id number] date:ount given:0.5mlRoute: IMSite given:L DltdGiven by: Silvino and LA signed ADMINISTRATION OF INFLUENZA VIRUS On: 11-Jul-2013 Intent VACCINE (G0008)By: ANGÉLICA Laureano Aerosol Treatment ([id number])By: Ciesa On: 24-Jan-2013 Intent Yoon BLAKE CNP, Mary E Pulse Oximetry (60247)By: Kenrick STEEL, On: 24-Jan-2013 Intent Jenifer Barajas Comments: see vs Eprescribed prescriptions (G8553)By: On: 24-Jan-2013 Intent Jenifer Choudhary LPN ADMINISTRATION OF INFLUENZA VIRUS On: 08-Jun-2012 Intent VACCINE (G0008)By: Milli Jackson MD FLU VAC, SPLIT, >3 YEARS, INTRAMUSC On: 08-Jun-2012 Intent ([id number])By: Milli Jackson MD Wax CurettesBy: Milli Jackson MD On: 08-Jun-2012 Intent Ear Irrigation ([id number])By: Gonsalo On: 08-Jun-2012 Intent Milli WATSON ADAV-[facility] COUNSELING On: 08-Jun-2012 Intent FOR OBESITY, 15 MINUTES (G0447)By: Milli Jackson MD DRAIN/INJECT MAJOR JOINT OR BURSA On: 13-Oct-2011 Intent ()By: ANGÉLICA Laureano Comments: Lot #:[id number] date:mount given:2mlRoute: intra articular Site given:right knee Given by: Dr. Jackson injection #3 DRAIN/INJECT MAJOR JOINT OR BURSA On: 02-Oct-2011 Intent ()By: Milli Jackson MD DRAIN/INJECT MAJOR JOINT OR BURSA On: 24-Sep-2011 Intent ([id number])By: Milli Jackson MD Kenalog Injection, 10 mgm On: 05-Sep-2011 Intent (J3301)By: Milli Jackson MD Kenalog Injection, 10 mgm On: 05-Sep-2011 Intent (J3301)By: Milli Jackson MD Kenalog Injection, 10 mgm On: 05-Sep-2011 Intent (J3301)By: Milli Jackson MD Kenalog Injection, 10 mgm On: 05-Sep-2011 Intent (J3301)By: Milli Jackson MD Eprescribed prescriptions (G8553)By: On: 26-Nov-2010 Intent Milli Jackson MD Inhaler Demonstration ([id number])By: On: 02-Aug-2010 Intent Yoon Tony CNP, CNP, Mary E Pulse Oximetry ([id number])By: Parth BLAKE, On: 02-Aug-2010 Intent Yoon Navas CNP Aerosol Treatment ([id number])By: Parth On: 02-Aug-2010 Intent Yoon BLAKE E Yoon Tony CNP FLU VAC, SPLIT, >3 YEARS, INTRAMUSC On: 27-May-2010 Intent ([id number])By: Ebony Holm RN Comments: Lot #: [id number] date: given: 0.5 mlRoute: IMSite given: left deltoidGiven by: Philip Sommer RN IMMUNIZ ADMNIN, 1 VAC, SNGL/COMBO On: 27-May-2010 Intent ([id number])By: Ebony Holm RN UGI (With air contrast if On: 01-Jan-2009 Intent necessary)By: Milli Jackson MD EKG ([id number])By: Milli Jackson MD On: 14-Sep-2008 Intent DRAIN/INJECT MAJOR JOINT OR BURSA On: 03-Jan-2008 Intent ()By: ANGÉLICA Laureano Comments: Lot #:[id number] date:unt given:2.5mlRoute: intra articular Site given:left knee Given by: Dr. Jackson DRAIN/INJECT MAJOR JOINT OR BURSA On: 27-Dec-2007 Intent ()By: ANGÉLICA Laureano Comments: Lot #:[id number] date: given:2.5 ml Route: intra-articular Site given:left knee Given by: Dr. Jackson DRAIN/INJECT MAJOR JOINT OR BURSA On: 20-Dec-2007 Intent ()By: ANGÉLICA Laureano Comments: Lot #:[id number] date: given:2.5 ml Route: intra articular Site given:left knee Given by: Dr. Jackson DRAIN/INJECT MAJOR JOINT OR BURSA On: 13-Dec-2007 Intent ()By: ANGÉLICA Laureano Comments: Lot #:[id number] date:mo given:2.5 ml Route: Intra articular Site given:left knee Given by: joanne ELECTROCARDIOGRAM, COMPLETE (ECG) On: 31-Aug-2007 Intent ()By: Milli Jackson MD Radiology - Knee - LeftBy: Gonsalo On: 12-Aug-2007 Intent Milli WATSON EKG ([id number])By: Milli Jackson MD On: 06-Oct-2006 Intent Planned Medications INJECTION, TRIAMCINOLONE ACETONIDE, NOT OTHERWISE SPECIFIED, 10 MG Ordered: 05-Sep-2011 Pending Milli Jackson MD INJECTION, TRIAMCINOLONE ACETONIDE, NOT OTHERWISE SPECIFIED, 10 MG Ordered: 05-Sep-2011 Pending Milli Jackson MD INJECTION, TRIAMCINOLONE ACETONIDE, NOT OTHERWISE SPECIFIED, 10 MG Ordered: 05-Sep-2011 Pending Milli Jackson MD INJECTION, TRIAMCINOLONE ACETONIDE, NOT OTHERWISE SPECIFIED, 10 MG Ordered: 05-Sep-2011 Pending Milli Jackson MD Instructions Name Dates Details Personal history of malignant neoplasm of prostate : Patient Instructions Indication: Personal history of malignant neoplasm of prostate Uncontrolled diabetes mellitus type 2 without complications, unspecified manager long term care insulin use status : How to access health information online Indication: Uncontrolled diabetes mellitus type 2 without complications, unspecified manager long term care insulin use status Uncontrolled diabetes mellitus type 2 without complications, unspecified long-term insulin use status : How to access health information online - Detail Indication: Uncontrolled diabetes mellitus type 2 without complications, unspecified long-term insulin use status BMI 38.0-38.9,adult : Patient Instructions Indication: BMI 38.0-38.9,adult Diabetes mellitus type II, controlled : How to access health information online Indication: Diabetes mellitus type II, controlled Diabetes mellitus type II, controlled : How to access health information online - Detail Indication: Diabetes mellitus type II, controlled Diabetes mellitus type II, controlled : Patient Instructions Indication: Diabetes mellitus type II, controlled Diabetic autonomic neuropathy associated with type 2 diabetes mellitus : How to access health information online Indication: Diabetic autonomic neuropathy associated with type 2 diabetes mellitus Diabetic autonomic neuropathy associated with type 2 diabetes mellitus : How to access health information online - Detail Indication: Diabetic autonomic neuropathy associated with type 2 diabetes mellitus Current nonsmoker (Renamed from Current non-smoker) : Patient Instructions Indication: Current nonsmoker (Renamed from Current non-smoker) Uncontrolled diabetes mellitus type 2 without complications, unspecified manager long term care insulin use status : How to access health information online Indication: Uncontrolled diabetes mellitus type 2 without complications, unspecified long-term insulin use status Uncontrolled diabetes mellitus type 2 without complications, unspecified long-term insulin use status : How to access health information online - Detail Indication: Uncontrolled diabetes mellitus type 2 without complications, unspecified long-term insulin use status Uncontrolled diabetes mellitus type 2 without complications, unspecified manager long term care insulin use status : Patient Instructions Indication: Uncontrolled diabetes mellitus type 2 without complications, unspecified long-term insulin use status Uncontrolled diabetes mellitus type 2 without complications, unspecified long-term insulin use status : How to access health information online Indication: Uncontrolled diabetes mellitus type 2 without complications, unspecified long-term insulin use status Uncontrolled diabetes mellitus type 2 without complications, unspecified long-term insulin use status : How to access health information online - Detail Indication: Uncontrolled diabetes mellitus type 2 without complications, unspecified long-term insulin use status Uncontrolled diabetes mellitus type 2 without complications, unspecified manager long term care insulin use status : Patient Instructions Indication: Uncontrolled diabetes mellitus type 2 without complications, unspecified long-term insulin use status Current nonsmoker (Renamed from Current non-smoker) : How to access health information online Indication: Current nonsmoker (Renamed from Current non-smoker) Current nonsmoker (Renamed from Current non-smoker) : How to access health information online - Detail Indication: Current nonsmoker (Renamed from Current non-smoker) Current nonsmoker (Renamed from Current non-smoker) : Patient Instructions Indication: Current nonsmoker (Renamed from Current non-smoker) Diabetes mellitus type II, controlled : How to access health information online Indication: Diabetes mellitus type II, controlled Diabetes mellitus type II, controlled : How to access health information online - Detail Indication: Diabetes mellitus type II, controlled Diabetes mellitus type II, controlled : Patient Instructions Indication: Diabetes mellitus type II, controlled Uncontrolled diabetes mellitus type 2 without complications, unspecified long-term insulin use status : How to access health information online Indication: Uncontrolled diabetes mellitus type 2 without complications, unspecified manager long term care insulin use status Uncontrolled diabetes mellitus type 2 without complications, unspecified manager long term care insulin use status : How to access health information online - Detail Indication: Uncontrolled diabetes mellitus type 2 without complications, unspecified manager long term care insulin use status Uncontrolled diabetes mellitus type 2 without complications, unspecified manager long term care insulin use status : Patient Instructions Indication: Uncontrolled diabetes mellitus type 2 without complications, unspecified manager long term care insulin use status BMI 37.0-37.9, adult : How to access health information online Indication: BMI 37.0-37.9, adult BMI 37.0-37.9, adult : How to access health information online - Detail Indication: BMI 37.0-37.9, adult BMI 37.0-37.9, adult : Patient Instructions Indication: BMI 37.0-37.9, adult Diabetes mellitus type II, controlled : How to access health information online Indication: Diabetes mellitus type II, controlled Diabetes mellitus type II, controlled : How to access health information online - Detail Indication: Diabetes mellitus type II, controlled Diabetes mellitus type II, controlled : Patient Instructions Indication: Diabetes mellitus type II, controlled Diabetes mellitus type II, controlled : Patient Instructions Indication: Diabetes mellitus type II, controlled Hypertension : How to access health information online Indication: Hypertension Hypertension : How to access health information online - Detail Indication: Hypertension Hypertension : Patient Instructions Indication: Hypertension Diabetes mellitus type II, controlled : How to access health information online Indication: Diabetes mellitus type II, controlled Diabetes mellitus type II, controlled : How to access health information online - Detail Indication: Diabetes mellitus type II, controlled Diabetes mellitus type II, controlled : Patient Instructions Indication: Diabetes mellitus type II, controlled Pure hypercholesterolemia : How to access health information online Indication: Pure hypercholesterolemia Pure hypercholesterolemia : How to access health information online - Detail Indication: Pure hypercholesterolemia Pure hypercholesterolemia : Patient Instructions Indication: Pure hypercholesterolemia Diabetes mellitus type II, controlled : How to access health information online Indication: Diabetes mellitus type II, controlled Diabetes mellitus type II, controlled : How to access health information online - Detail Indication: Diabetes mellitus type II, controlled Diabetes mellitus type II, controlled : Patient Instructions Indication: Diabetes mellitus type II, controlled Diabetes mellitus type II, controlled : How to access health information online Indication: Diabetes mellitus type II, controlled Diabetes mellitus type II, controlled : How to access health information online - Detail Indication: Diabetes mellitus type II, controlled Diabetes mellitus type II, controlled : Patient Instructions Indication: Diabetes mellitus type II, controlled Diabetes mellitus type II, controlled : How to access health information online Indication: Diabetes mellitus type II, controlled Diabetes mellitus type II, controlled : How to access health information online - Detail Indication: Diabetes mellitus type II, controlled Diabetes mellitus type II, controlled : Patient Instructions Indication: Diabetes mellitus type II, controlled Diabetes mellitus type II, controlled : Patient Instructions Indication: Diabetes mellitus type II, controlled Cough : Patient Instructions Indication: Cough Cough : Patient Instructions Indication: Cough Diabetes mellitus type II, controlled : Patient Instructions Indication: Diabetes mellitus type II, controlled BMI 39.0-39.9,adult : obesity counseling Indication: BMI 39.0-39.9,adult Diabetes mellitus type II, controlled : Patient Instructions Indication: Diabetes mellitus type II, controlled Encounters Office Visit On: 29-Mar-2018 11:23 Encounter Reason: Follow up for chronic medical issues - The patient feels well with no complaints, has decreased energy level (when i have irregular heart beat) and is sleeping well. Patient has been compliant with inst End: 29-Mar-2018 14:02 ructions. Current medication use: no side effects and compliant with dosing regimen. Patient sleeps 7 hours per night. Nutrition: balanced diet and supplemental vitamins. The medical issues the patient is following up for include All identified problems below, blood sugar issues, cardiac issues, high blood pressure and high cholesterol. fasting blood sugars : (107- 200 just depending what i eat that da y). Note for Follow up for chronic medical issues: Looking for shoes will need apt with KF on till eating small candy bars, some wt lossEncounter Diagnosis: Diabetes mellitus type II, controlled, Current nonsmoker (Renamed from Current non-smoker), BMI 38.0-38.9,adult, A-fib, Hypertension, benign, Anemia, Personal history of malignant neoplasm of prostate [facility] Office Visit On: 26-Nov-2017 13:20 Encounter Reason: Forms - fill out foot doc formsEncounter Diagnosis: BMI 38.0-38.9,adult, Diabetes mellitus type II, controlled, Hammer toes, bilateral, Current nonsmoker (Renamed from Current non-smoker), End: 26-Nov-2017 13:55 Diabetic polyneuropathy associated with type 2 diabetes mellitus [facility] Office Visit On: 24-Nov-2017 13:54 Encounter Reason: Follow up for chronic medical issues - The patient feels well with no complaints, has decreased energy level and is sleeping well. Patient has been compliant with instructions. Current medication use: n End: 24-Nov-2017 15:07 o side effects and compliant with dosing regimen. Patient sleeps 8 hours per night. Nutrition: balanced diet and supplemental vitamins. The medical issues the patient is following up for include All jodee ntified problems below, blood sugar issues, cardiac issues, high blood pressure and high cholesterol. fasting blood sugars :. Note for Follow up for chronic medical issues: Looking for shoes will need apt with KF on Encounter Diagnosis: Uncontrolled diabetes mellitus type 2 without complications, unspecified manager long term care insulin use status, Hypertension, benign, Current nonsmoker (Renamed from Current non-smoker), BMI 38.0-38.9,adult, Anemia [facility] Office Visit On: 13-Jul-2017 13:18 Encounter Reason: Follow up for chronic medical issues - The patient feels well with no complaints, has decreased energy level and is sleeping well. Patient has been compliant with instructions. Current medication use: n End: 13-Jul-2017 14:16 o side effects and compliant with dosing regimen. Patient sleeps 8 hours per night. Nutrition: balanced diet and supplemental vitamins. The medical issues the patient is following up for include All jodee ntified problems below, blood sugar issues, cardiac issues, high blood pressure and high cholesterol. fasting blood sugars :. Note for Follow up for chronic medical issues: here for follow up, [ADDITIONAL REASON] Follow up tests - Diagnostic tests include other (labs). Note for Discuss procedure results: Has changed the way he eats, lost wt and BS improving Encounter Diagnosis: Diabetes mellitus type II, controlled, Current nonsmoker (Renamed from Current non-smoker), BMI 39.0-39.9,adult, Hypertension, benign, Need for prophylactic vaccination and inoculation against influenza (Renamed from Need for immunization against influenza) [facility] Office Visit On: 12-Mar-2017 8:02 Encounter Reason: Forms - The patient presents to the office to be evaluate for other: (DM foot paper) (see scanned in form filled out).Encounter Diagnosis: BMI 40.0-44.9, adult, Current nonsmoker (Renamed from Current non-smoker), End: 12-Mar-2017 8:32 Diabetic autonomic neuropathy associated with type 2 diabetes mellitus, Hammer toes, bilateral [facility] Office Visit On: 09-Mar-2017 12:42 Encounter Reason: Follow up for chronic medical issues - The patient feels well with minor complaints, has decreased energy level and is sleeping well. Patient has been compliant with instructions. Current medication use End: 09-Mar-2017 13:46 : no side effects and compliant with dosing regimen. Patient sleeps 8 hours per night. Nutrition: balanced diet and supplemental vitamins. The medical issues the patient is following up for include All identified problems below, blood sugar issues, cardiac issues, high blood pressure and high cholesterol. fasting blood sugars :. Note for Follow up for chronic medical issues: Asking for permission for diabetic shoes needs signed by , [ADDITIONAL REASON] change in medication - [employer] stopped metoprolol because of low heart rate Encounter Diagnosis: Uncontrolled diabetes mellitus type 2 without complications, unspecified long-term insulin use status, Hypertension, benign, BMI 40.0-44.9, adult, Current nonsmoker (Renamed from Current non-smoker), Vitamin D deficiency, unspecified [facility] Office Visit On: 05-Dec-2016 10:35 Encounter Reason: Follow up for chronic medical issues - The patient feels well with minor complaints, has good energy level and is sleeping well. Patient has been compliant with instructions. Current medication use: no End: 05-Dec-2016 12:03 side effects and compliant with dosing regimen. Patient sleeps 7 hours per night. Nutrition: balanced diet and supplemental vitamins. The medical issues the patient is following up for include All ident ified problems below, blood sugar issues, cardiac issues, high blood pressure and high cholesterol. fasting blood sugars : (78-188)., [ADDITIONAL REASON] Follow up tests - Diagnostic tests include other (labs). Encounter Diagnosis: Uncontrolled diabetes mellitus type 2 without complications, unspecified long-term insulin use status, Current nonsmoker (Renamed from Current non-smoker), BMI 39.0-39.9,adult, Hematuria, Personal history of malignant neoplasm of prostate, Hypertension, benign [facility] Phone Encounter On: 05-Dec-2016 10:16 [facility] End: 05-Dec-2016 10:20 Phone Encounter On: 05-Dec-2016 9:12 [facility] End: 05-Dec-2016 9:13 Office Visit On: 06-Oct-2016 10:13 Encounter Reason: Cough - No changes in management were made at the last visit. Symptoms include cough, wheezing and sore throat, while symptoms do not include chills, fever, runny nose or stuffy nose. The cough is descr End: 06-Oct-2016 10:53 ibed as hacking and productive. Cough onset was sudden 2 day(s) ago. There is no known event that preceded symptom onset. The cough occurs constantly. Symptoms are described as moderate in severity and unchanged. Current treatment includes decongestants. Note for Cough: coughing up raygoza. ??no nasal congestion or drainage. alot post nasal drip. no fevers or ache sugars goodEncounter Diagnosis: BMI 39.0-39.9,adult, Current nonsmoker (Renamed from Current non-smoker), Asthmatic bronchitis, unspecified asthma severity, with acute exacerbation [facility] Historical Summary On: 26-Aug-2016 11:00 [facility] End: 26-Aug-2016 11:03 Historical Summary On: 25-Aug-2016 16:13 [facility] End: 25-Aug-2016 16:14 Office Visit On: 25-Aug-2016 14:04 Encounter Reason: Follow up for chronic medical issues - The patient feels well with minor complaints, has good energy level and is sleeping well. Patient has been compliant with instructions. Current medication use: no End: 25-Aug-2016 14:58 side effects and compliant with dosing regimen. Patient sleeps 7 hours per night. Nutrition: balanced diet and supplemental vitamins. The medical issues the patient is following up for include All ident ified problems below, blood sugar issues, cardiac issues, high blood pressure and high cholesterol. fasting blood sugars :.Encounter Diagnosis: Diabetes mellitus type II, controlled, BMI 37.0-37.9, adult, Current nonsmoker (Renamed from Current non-smoker), Hypertension, benign, Colon cancer [facility] Office Visit On: 18-Jul-2016 13:41 Encounter Reason: Follow up for diabetes/glucose intolerance - The patient feels well with no complaints, has good energy level and is sleeping well (7 hours). Patient has been compliant with instructions. Nutrition: eats sweets daily. End: 18-Jul-2016 14:42 Encounter Diagnosis: Uncontrolled diabetes mellitus type 2 without complications, unspecified manager long term care insulin use status, BMI 39.0-39.9,adult, Hypertension, benign [facility] Office Visit On: 03-Jul-2016 13:24 Encounter Reason: Follow up for diabetes/glucose intolerance - The patient feels well with minor complaints, has good energy level and is sleeping well. Patient has been compliant with instructions. Nutrition: balanced diet. fasting blood sugars :. End: 03-Jul-2016 13:51 Encounter Diagnosis: Current nonsmoker (Renamed from Current non-smoker), BMI 37.0- 37.9, adult, Uncontrolled diabetes mellitus type 2 without complications, unspecified manager long term care insulin use status [facility] Office Visit On: 16-Jun-2016 13:03 Encounter Reason: Follow up for diabetes/glucose intolerance - The patient feels well with minor complaints, has good energy level and is sleeping well. Patient has been non-compliant with instructions. Current medicatio End: 16-Jun-2016 13:38 n use: experiencing side effects. Nutrition: balanced diet. fasting blood sugars : and blood pressure range :.Encounter Diagnosis: Diabetes mellitus type II, controlled, Current nonsmoker (Renamed from Current non-smoker), History of CVA in adulthood , Body mass index 38.0-38.9, adult [facility] Office Visit On: 16-May-2016 12:41 Encounter Reason: Follow up for chronic medical issues - The patient feels well with minor complaints, has decreased energy level (ok) and is sleeping well. Patient has been compliant with instructions. Current medicat End: 16-May-2016 14:24 ion use: experiencing side effects (glipizide -low blood sugar), compliant with dosing regimen and considered effective by patient. Patient sleeps 7 hours per night. Impact of disease: emotional impact- mild. Nutrition: balanced diet and supplemental vitamins. The medical issues the patient is following up for include blood sugar issues, cardiac issues, high blood pressure, high cholesterol, osteoarthr itis and other (hx. prostate cancer, hearing defecit, speech abnormality, obesity, vitamin d def. ). fasting blood sugars : (150's)., [ADDITIONAL REASON] Follow up tests - Diagnostic tests include other (labs). Encounter Diagnosis: Diabetes mellitus type II, controlled, Hypertension, Need for prophylactic vaccination and inoculation against influenza [facility] Office Visit On: 13-Feb-2016 10:37 Encounter Reason: Follow up for chronic medical issues - The patient feels well with minor complaints, has decreased energy level (ok) and is sleeping well. Patient has been compliant with instructions. Current medicat End: 13-Feb-2016 11:52 ion use: experiencing side effects (glipizide -low blood sugar), compliant with dosing regimen and considered effective by patient. Patient sleeps 7 hours per night. Impact of disease: emotional impact- mild. Nutrition: balanced diet and supplemental vitamins. The medical issues the patient is following up for include blood sugar issues, cardiac issues, high blood pressure, high cholesterol, osteoarthr itis and other (hx. prostate cancer, hearing defecit, speech abnormality, obesity, vitamin d def. ).Encounter Diagnosis: Diabetes mellitus type II, controlled, Hypercholesteremia, Vitamin D deficiency, unspecified, Hypertension, Personal history of malignant neoplasm of prostate, Aphasia as late effect of cerebrovascular accident [facility] Phone Encounter On: 26-Nov-2015 14:08 Encounter Diagnosis: Unspecified Diagnosis End: 26-Nov-2015 14:13 [facility] Office Visit On: 12-Nov-2015 14:03 Encounter Reason: Follow up for chronic medical issues - The patient feels well with no complaints, has good energy level and is sleeping well. Patient has been compliant with instructions. Current medication use: no chicho End: 12-Nov-2015 14:41 e effects, compliant with dosing regimen and considered effective by patient. Patient sleeps 7 hours per night. Impact of disease: emotional impact-mild. Nutrition: balanced diet and supplemental vitami ns. The medical issues the patient is following up for include blood sugar issues, cardiac issues, high blood pressure, high cholesterol, osteoarthritis and other (hx. prostate cancer, hearing defecit, speech abnormality, obesity, vitamin d def. ). Encounter Diagnosis: Diabetes mellitus type II, controlled, Current nonsmoker (Renamed from Current non-smoker), Speech abnormality, Obesity, unspecified, Vitamin D deficiency, unspecified, Status post coronary angiogram, Hypertension, Hypercholesteremia, History of CVA in adulthood, Osteoarthrosis, not specified whether generalized/localized, lower leg, Colon polyp, ASD (atrial septal defect), ostium secundum, A-fib, Asymptomatic carotid artery stenosis with infarction, Aphasia as late effect of cerebrovascular accident, Memory loss, Personal history of malignant neoplasm of prostate [facility] Office Visit On: 31-Jul-2015 13:44 Encounter Reason: Follow up for chronic medical issues - The patient feels well with minor complaints (memory), has good energy level and is sleeping well. Patient has been compliant with instructions. Current medication End: 31-Jul-2015 14:47 use: no side effects and considered effective by patient. Patient sleeps 8 hours per night. Impact of disease: emotional impact-mild. Nutrition: balanced diet and supplemental vitamins. The medical iss ues the patient is following up for include blood sugar issues, cardiac issues, high blood pressure, high cholesterol and other (hx. 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 No changes in management were made at the last visit. Symptoms include cough, runny nose and stuffy nose. The cough is described as productive (yellow). C End: 02-Jul-2015 15:22 ough onset was gradual 6 day(s) ago. Symptoms are described as unchanged. Associated symptoms include postnasal drainage.Encounter Diagnosis: Cough, Bronchitis [facility] Office Visit On: 28-May-2015 13:27 Encounter Reason: Follow up for chronic medical issues - The patient feels well with minor complaints and has decreased energy level. Patient has been compliant with instructions. Current medication use: no side effects End: 28-May-2015 14:00 and considered effective by patient. Patient sleeps 8 hours per night. Impact of disease: emotional impact-mild. Nutrition: balanced diet and supplemental vitamins. The medical issues the patient is fol lowing up for include blood sugar issues, cardiac issues, high blood pressure, high cholesterol and other (hx. prostate cancer, [place], vitamin d def., obesity ).Encounter Diagnosis: Diabetes, Type II, controlled (250.00), Need for prophylactic vaccination and inoculation against influenza, Status post coronary angiogram, Obesity,unspecified (278.00), Asymptomatic carotid artery stenosis with infarction, Colon polyp (211.3), Aphasia as late effect of cerebrovascular accident, DEFICIENCY, VITAMIN D NOS (268.9), Speech abnormality, CVA (cerebral infarction), Hypertension 401.1 (Renamed from Hypertension (401.0)), Hypercholesteremia, osteoarthrosis, lower leg (715.36), Fibrillation, atrial (427.31), DEFECT, CNGN, 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 Yes the patient did have ( Alert) a mini mental status exam do End: 27-Feb-2015 14:59 ne today. The activities of daily living the patient needs help with are none. The patient has driven in past 6 months, but the patient has not had fecal incontinence, had urinary incontinence, missed o r ran out of medications to soon, fallen in the past 6 months, gotten lost, has a medalert necklace or bracelet, put area rugs through house or put handrails in bathroom. The patient has completed the f [facility] preventative measures: PSA testing (1 year ago) and colonoscopy (08/2013 - sarah). The patient does not have durable power of claim attorney or living will. The patient has noticed nothing from the g eriatic depression scale. Other providers contributing to the patient's care are [facility] ([place]) and other: ( [facility] - [facility], neurology [facility] dr)., [ADDITIONAL REASON] Follow up for chronic medical issues - The patient feels well with no complaints, has good energy level and is sleeping well. Patient has been compliant with instructions. Current m edication use: no side effects, compliant with dosing regimen and considered effective by patient. Patient sleeps 7 hours per night. Impact of disease: emotional impact-mild. Nutrition: balanced diet an d supplemental vitamins. The medical issues the patient is following up for include blood sugar issues, cardiac issues, high blood pressure, high cholesterol, osteoarthritis and other (vitamin d def., s peech/hearing abnormality, hx. prostate cancer, obesity ). 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 Patient has been compliant with instructions. Current medication use: no chicho End: 21-Nov-2014 14:49 e effects, compliant with dosing regimen and considered effective by patient. Patient sleeps 7 hours per night. Impact of disease: emotional impact-mild. Nutrition: balanced diet and supplemental vitami ns. The medical issues the patient is following up for include blood sugar issues, cardiac issues, high blood pressure, high cholesterol, osteoarthritis and other (vitamin d def., speech/hearing abnormality, hx. prostate cancer, obesity ). 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 Patient has been compliant with instructions. Current medication use: no chicho End: 08-Aug-2014 16:02 e effects, compliant with dosing regimen and considered effective by patient. Patient sleeps 7 hours per night. Impact of disease: emotional impact-mild. Nutrition: balanced diet and supplemental vitami ns. The medical issues the patient is following up for include blood sugar issues, cardiac issues, high blood pressure, high cholesterol, osteoarthritis and other (vitamin d def., speech/hearing abnormality, hx. prostate cancer, obesity )., [ADDITIONAL REASON] Follow up tests - Date: (08/04/14 blood work). 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 Patient has been compliant with instructions. Current medication use: no chicho End: 18-Apr-2014 12:14 e effects, compliant with dosing regimen and considered effective by patient. Patient sleeps 7 hours per night. Impact of disease: emotional impact-mild. Nutrition: balanced diet and supplemental vitami ns. The medical issues the patient is following up for include blood sugar issues, cardiac issues, high blood pressure, high cholesterol, osteoarthritis and other (vitamin d def., speech/hearing abnormality, hx. prostate cancer, obesity ). 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), Elevated WBC count, Status post coronary angiogram, Speech abnormality, Aphasia as late effect of cerebrovascular accident, Fibrillation, atrial (427.31), HX, PERSONAL, MALIGNANCY, PROSTATE (V10.46), Colon polyp (211.3), Hypertension 401.1 (Renamed from Hypertension (401.0)), Hypercholesteremia (272.0), Asymptomatic carotid artery stenosis with infarction, DEFICIENCY, VITAMIN D NOS (268.9), CVA (cerebral infarction), OSTEOARTHROSIS NOS, LOWER LEG (715.96), osteoarthrosis, lower leg (715.36), Well Male Exam (V70.0) [facility] Office Visit On: 12-Jan-2014 11:17 Encounter Reason: Follow up for chronic medical issues - The patient feels well with minor complaints and has decreased energy level. Patient has been compliant with instructions. Current medication use: no side effects, End: 12-Jan-2014 12:24 compliant with dosing regimen and considered effective by patient. Patient sleeps 7 hours per night. Impact of disease: emotional impact-mild. Nutrition: balanced diet and supplemental vitamins. The me dical issues the patient is following up for include blood sugar issues, cardiac issues, high blood pressure, high cholesterol, kidney problems, osteoarthritis and other (elevated WBC count, speech and hearing impairment, hx. prostate cancer ). 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), Obesity,unspecified (278.00), Status post coronary angiogram, Atherosclerosis of left carotid artery, Elevated WBC count, CVA (cerebral infarction), DEFICIENCY, VITAMIN D NOS (268.9), osteoarthrosis, lower leg (715.36), OSTEOARTHROSIS NOS, LOWER LEG (715.96), Hypertension 401.1 (Renamed from Hypertension (401.0)), Colon polyp (211.3) [facility] Lab Order On: 10-Jan-2014 11:51 Encounter Diagnosis: Elevated WBC count End: 10-Jan-2014 11:52 [facility] Office Visit On: 28-Oct-2013 7:49 Encounter Reason: Transition into care - The patient is transitioning into care from a hospital and a summary of care was reviewed ., [ADDITIONAL REASON] Follow up hospital - Reason for ER visit: note: (CVA). The patient feels well wi End: 28-Oct-2013 8:42 th no complaints, has good energy level and is sleeping well. Patient has been compliant with instructions. Patient sleeps 8 hours per night. Impact of disease: no overall impact. Encounter Diagnosis: Elevated WBC count, Hypertension 401.1 (Renamed from Hypertension (401.0)), DEFICIENCY, VITAMIN D NOS (268.9), CVA (cerebral infarction), Atherosclerosis of left carotid artery, Status post coronary angiogram, Hypercholesteremia (272.0) [facility] Office Visit On: 20-Oct-2013 11:43 Encounter Reason: Follow up, Diagnostic Procedure Results - Diagnostic tests include CT scan (CTA, carotid doppler, MRI ). Date: (10-17-13).Encounter Diagnosis: Asymptomatic carotid artery stenosis with infarction, End: 20-Oct-2013 12:41 Aphasia as late effect of cerebrovascular accident, CVA (cerebral infarction), Hypercholesteremia (272.0), DEFICIENCY, VITAMIN D NOS (268.9) [facility] Refill Request On: 18-Oct-2013 8:26 Encounter Diagnosis: Hypertension 401.1 (Renamed from Hypertension (401.0)) End: 18-Oct-2013 8:29 [facility] Lab Order On: 17-Oct-2013 15:02 Encounter Diagnosis: Atherosclerosis of left carotid artery End: 17-Oct-2013 15:17 [facility] Office Visit On: 11-Oct-2013 11:10 Encounter Reason: Follow up for chronic medical issues - The patient does not feel well, has good energy level and is sleeping well. Patient has been compliant with instructions. Current medication use: no side effects, End: 12-Oct-2013 7:56 compliant with dosing regimen and considered effective by patient. Patient sleeps 7 hours per night. Impact of disease: emotional impact-mild. Nutrition: balanced diet and supplemental vitamins. The [facility] issues the patient is following up for include blood sugar issues, cardiac issues, high blood pressure, high cholesterol, osteoarthritis and other (obesity, decreased hearing )., [ADDITIONAL REASON] Annual Medicare Exam - The patient had reviewed and updated the family history, medication/s, past medical history and social history. Yes the patient did have ( Alert) a mini mental status exam done today. The activities of daily living the patient needs help with are none. The patient has driven in past 6 months, but the patient has not had fecal incontinence, had urinary i ncontinence, missed or ran out of medications to soon, fallen in the past 6 months, gotten lost, has a medalert necklace or bracelet, put area rugs through house or put handrails in bathroom. The patien t has completed the following preventative measures: PSA testing (1 year ago) and colonoscopy (08/2013). The patient does not have durable power of claim attorney or living will. Other providers contributing t o the patient's care are [employer] and other: (Oncologist Dr. Richards). 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 Patient has been compliant with instructions. Current medication use: no chicho End: 11-Jul-2013 12:11 e effects, compliant with dosing regimen and considered effective by patient. Patient sleeps 7 hours per night. Impact of disease: emotional impact-mild. Nutrition: balanced diet and supplemental vitami ns. The medical issues the patient is following up for include blood sugar issues, cardiac issues, high blood pressure, high cholesterol, osteoarthritis and other (obesity, decreased hearing ).Encounter Diagnosis: Diabetes, Type II, controlled (250.00), Hypercholesteremia (272.0), Hypertension 401.1 (Renamed from Hypertension (401.0)), Need for prophylactic vaccination and inoculation against influenza (V04.81), DEFICIENCY, VITAMIN D NOS (268.9), osteoarthrosis, lower leg (715.36), Obesity,unspecified (278.00), BMI 38.0-38.9, ADULT (V85.38), OSTEOARTHROSIS NOS, LOWER LEG (715.96), Colon polyp (211.3), Fibrillation, atrial (427.31), DEFECT, CNGN, 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 Patient has been compliant with instructions. Current medication use: no End: 11-Apr-2013 14:37 side effects, compliant with dosing regimen and considered effective by patient. Patient sleeps 7 hours per night. Impact of disease: emotional impact-mild. Nutrition: balanced diet and supplemental vit amins. The medical issues the patient is following up for include blood sugar issues, cardiac issues, high blood pressure, high cholesterol, osteoporosis/osteopenia and other (obesity, hearing loss, vitamin d def. 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), HX, PERSONAL, MALIGNANCY, PROSTATE (V10.46), Colon polyp (211.3) [facility] Phone Encounter On: 25-Jan-2013 12:41 [facility] End: 25-Jan-2013 12:42 Annotation/Addendum On: 25-Jan-2013 12:12 Encounter Diagnosis: BRONCHITIS, NOT SPECIFIED ACUTE OR CHRONIC (490.) End: 25-Jan-2013 12:16 [facility] Office Visit On: 24-Jan-2013 11:16 Encounter Reason: Cough Encounter Diagnosis: Cough (786.2), BRONCHITIS, NOT SPECIFIED ACUTE OR CHRONIC (490.), Wheezing (786.07) End: 24-Jan-2013 12:06 [facility] Office Visit On: 31-Dec-2012 11:23 Encounter Reason: Follow up for chronic medical issues - The patient feels well with minor complaints and is sleeping poorly (knee pain keeping him up). Patient has been compliant with instructions. Current medication End: 31-Dec-2012 12:39 e: no side effects and compliant with dosing regimen. Patient sleeps 4 (due to knne surgery) hours per night. Impact of disease: no overall impact. Nutrition: balanced diet. 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), osteoarthrosis, lower leg (715.36), BMI 38.0-38.9, ADULT (V85.38), Obesity,unspecified (278.00), DEFICIENCY, VITAMIN D NOS (268.9), Hypercholesteremia (272.0), Hypertension 401.1 (Renamed from Hypertension (401.0)), HX, PERSONAL, MALIGNANCY, PROSTATE (V10.46), Fibrillation, atrial (427.31), Colon polyp (211.3) [facility] Lab Order On: 30-Dec-2012 11:23 Encounter Diagnosis: Hypercholesteremia (272.0), Hypertension 401.1 (Renamed from Hypertension (401.0)) End: 30-Dec-2012 11:24 [facility] Office Visit On: 04-Oct-2012 13:06 Encounter Reason: Cough - The last clinic visit was 3 week(s) ago. Management changes made at the last visit include stopping medication (done with Biaxin ). Symptoms include cough and wheezing. The cough is described as End: 04-Oct-2012 13:49 tight and wheezy. Onset of cough followed cold symptoms. Symptoms are described as moderate in severity and unchanged. Symptoms are exacerbated by activity.Encounter Diagnosis: Cough (786.2) [facility] Annotation/Addendum On: 09-Sep-2012 12:56 Encounter Diagnosis: Diabetes, Type II, controlled (250.00) End: 09-Sep-2012 12:57 [facility] Office Visit On: 09-Sep-2012 12:05 Encounter Reason: Follow up for chronic medical issues - The patient feels well with minor complaints, has good energy level and is sleeping well. Patient has been compliant with instructions. Current medication use: no End: 09-Sep-2012 12:55 side effects, compliant with dosing regimen and considered effective by patient. Patient sleeps 7 hours per night. Impact of disease: emotional impact-mild. Nutrition: balanced diet and supplemental vit amins. 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), Obesity,unspecified (278.00), DEFICIENCY, VITAMIN D NOS (268.9), Knee pain (719.46), Unspecified hearing loss (389.9), Sinusitis,chronic (473.9), osteoarthrosis, lower leg (715.36), OSTEOARTHROSIS NOS, LOWER LEG (715.96), BMI 39.0-39.9, ADULT (V85.39), Hypercholesteremia (272.0), Hypertension 401.1 (Renamed from Hypertension (401.0)), HX, PERSONAL, MALIGNANCY, PROSTATE (V10.46), Fibrillation, atrial (427.31), Epigastric pain (789.06), Colon polyp (211.3), BMI 38.0-38.9, ADULT (V85.38), ACUTE SINUSITIS, UNSPECIFIED (461.9) [facility] Lab Order On: 07-Sep-2012 11:59 Encounter Diagnosis: Hypercholesteremia (272.0), Hypertension 401.1 (Renamed from Hypertension (401.0)) End: 07-Sep-2012 12:05 [facility] Office Visit On: 08-Jun-2012 13:52 Encounter Reason: Follow up for chronic medical issues - The patient feels well with minor complaints, has good energy level and is sleeping well. Patient has been compliant with instructions. Current medication use: no End: 08-Jun-2012 14:26 side effects, compliant with dosing regimen and considered effective by patient. Patient sleeps 7 hours per night. Impact of disease: emotional impact-mild. Nutrition: balanced diet and supplemental vit amins. 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), Obesity,unspecified (278.00), Hypertension 401.1 (Renamed from Hypertension (401.0)), DEFICIENCY, VITAMIN D NOS (268.9), OSTEOARTHROSIS NOS, LOWER LEG (715.96), Hypercholesteremia (272.0), Fibrillation, atrial (427.31), Epigastric pain (789.06), Pre-operative examination, unspecified (V72.84), Prostate cancer, Colon polyp (211.3), Fatigue (780.79), HX, PERSONAL, MALIGNANCY, PROSTATE (V10.46), BMI 39.0-39.9, ADULT (V85.39), Cerumen impaction (380.4), Need for prophylactic vaccination and inoculation against influenza (V04.81) [facility] Annotation/Addendum On: 04-Jun-2012 11:15 Encounter Diagnosis: Hypertension 401.1 (Renamed from Hypertension (401.0)) End: 04-Jun-2012 11:16 [facility] Office Visit On: 05-Mar-2012 13:22 Encounter Reason: Follow up for chronic medical issues - The patient feels well with minor complaints and has decreased energy level. Patient has been compliant with instructions. Current medication use: no side effects, End: 05-Mar-2012 13:54 compliant with dosing regimen and considered effective by patient. Patient sleeps 7 hours per night. Impact of disease: emotional impact-mild. Nutrition: balanced diet and supplemental vitamins. The me dical issues the patient is following up for include blood sugar issues, cardiac issues, high blood pressure, high cholesterol, osteoarthritis and other (obesity, hx. 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 Patient has been compliant with instructions. Curr End: 05-Dec-2011 13:44 ent medication use: no side effects, compliant with dosing regimen and considered effective by patient. Patient sleeps 9 hours per night. Impact of disease: emotional impact-mild. Nutrition: balanced di et and supplemental vitamins. The medical issues the patient is following up for include blood sugar issues, cardiac issues, high blood pressure, high cholesterol and other (prostate cancer, obesity, vitamin d def. ).Encounter Diagnosis: Diabetes, Type II, controlled (250.00), Hypercholesteremia (272.0), Knee pain (719.46), Obesity,unspecified (278.00), Hypertension 401.1 (Renamed from Hypertension (401.0)), DEFICIENCY, VITAMIN D NOS (268.9), Fibrillation, atrial (427.31) [facility] Phone Encounter On: 02-Dec-2011 9:39 Encounter Diagnosis: Hypercholesteremia (272.0) End: 02-Dec-2011 9:42 [facility] Office Visit On: 13-Oct-2011 11:24 Encounter Reason: Injections - The medication the patient is here to receive is other (Euflexxa).Encounter Diagnosis: OSTEOARTHROSIS NOS, LOWER LEG (715.96) End: 13-Oct-2011 16:25 [facility] Office Visit On: 30-Sep-2011 10:34 Encounter Reason: Injections - The medication the patient is here to receive is other (Euflexxa).Encounter Diagnosis: osteoarthrosis, lower leg (715.36) End: 02-Oct-2011 6:43 [facility] Office Visit On: 24-Sep-2011 10:33 Encounter Reason: Knee Pain - This condition occurred without any known injury. The injury involved the right knee. This occurred 2 month(s) ago at home. The last clinic visit was 2 week(s) ago. Symptoms include knee shena End: 24-Sep-2011 11:00 n. Symptoms are located in the right knee. There is no radiation.Encounter Diagnosis: osteoarthrosis, lower leg (715.36) [facility] Office Visit On: 05-Sep-2011 10:33 Encounter Reason: Follow up for chronic medical issues - The patient feels well with minor complaints, has decreased energy level and is sleeping well. Patient has been compliant with instructions. Current medication use End: 05-Sep-2011 11:38 : no side effects and compliant with dosing regimen. Patient sleeps 7 hours per night. Impact of disease: emotional impact-mild. Nutrition: balanced diet and supplemental vitamins. The medical issues th e patient is following up for include blood sugar issues, cardiac issues, high blood pressure, high cholesterol and other (prostate cancer, obesity, vitamin d def. ).Encounter Diagnosis: Diabetes, Type II, controlled (250.00), Knee pain (719.46), Obesity,unspecified (278.00), Hypercholesteremia (272.0), Fibrillation, atrial (427.31), DEFICIENCY, VITAMIN D NOS (268.9), Hypertension 401.1 (Renamed from Hypertension (401.0)) [facility] Office Visit On: 03-Jun-2011 10:55 Encounter Reason: Follow up for chronic medical issues - The patient feels well with minor complaints and has decreased energy level. Patient has been compliant with instructions. Current medication use: no side effects, End: 03-Jun-2011 11:34 compliant with dosing regimen and considered effective by patient. Patient sleeps 7 hours per night. Impact of disease: emotional impact-mild. Nutrition: balanced diet and supplemental vitamins. The me dical issues the patient is following up for include blood sugar issues, cardiac issues, high blood pressure, high cholesterol and other (vitamin d def., elevated PSA, hearing loss ).Encounter Diagnosis: Diabetes, Type II, controlled (250.00), Hypertension 401.1 (Renamed from Hypertension (401.0)), Fibrillation, atrial (427.31), DEFICIENCY, VITAMIN D NOS (268.9), Hypercholesteremia (272.0), Obesity,unspecified (278.00), Elavated PSA (790.93), Tremors (781.0), Knee pain (719.46) [facility] Annotation/Addendum On: 17-Apr-2011 14:24 Encounter Diagnosis: Diabetes, Type II, controlled (250.00) End: 17-Apr-2011 14:26 [facility] Annotation/Addendum On: 17-Apr-2011 11:08 Encounter Diagnosis: Diabetes, Type II, controlled (250.00) End: 17-Apr-2011 11:13 [facility] Office Visit On: 03-Mar-2011 13:58 Encounter Reason: Follow up for chronic medical issues - The patient feels well with no complaints, has good energy level and is sleeping well. Patient has been compliant with instructions. Current medication use: no chicho End: 03-Mar-2011 14:22 e effects, compliant with dosing regimen and considered effective by patient. Patient sleeps 7 hours per night. Impact of disease: emotional impact-mild. Nutrition: balanced diet and supplemental vitami ns. 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 Patient has been compliant with instructions. Current medication use: no chicho End: 26-Nov-2010 13:57 e effects, compliant with dosing regimen and considered effective by patient. Patient sleeps 7 hours per night. Impact of disease: emotional impact-mild. Nutrition: balanced diet and supplemental vitami ns. The medical issues the patient is following up for include blood sugar issues, cardiac issues, high blood pressure, high cholesterol and other (obesity, hard of hearing, elevated PSA).Encounter Diagnosis: Diabetes, Type II, controlled (250.00), Hypercholesteremia (272.0), Hypertension 401.1 (Renamed from Hypertension (401.0)), Fibrillation, atrial (427.31), Obesity,unspecified (278.00) [facility] Office Visit On: 27-Aug-2010 13:04 Encounter Reason: Follow up for chronic medical issues - The patient feels well with no complaints, has good energy level and is sleeping well. Patient has been compliant with instructions. Current medication use: no chicho End: 27-Aug-2010 13:29 e effects, compliant with dosing regimen and considered effective by patient. Patient sleeps 7 hours per night. Impact of disease: emotional impact-mild. Nutrition: balanced diet and supplemental vitami ns. 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), Fibrillation, atrial (427.31), Unspecified hearing loss (389.9), Hypertension 401.1 (Renamed from Hypertension (401.0)), Hypercholesteremia (272.0), DEFICIENCY, VITAMIN D NOS (268.9), Sinusitis,chronic (473.9), Other specified periodontal diseases (523.8), Actinic keratosis (702.0) [facility] Office Visit On: 23-Aug-2010 10:26 Encounter Diagnosis: Hypertension 401.1 (Renamed from Hypertension (401.0)) End: 23-Aug-2010 10:29 [facility] Office Visit On: 02-Aug-2010 12:59 Encounter Reason: Cough - The onset of the cough has been sudden and has been occurring in a persistent pattern for 2 weeks. The course has been constant. The cough is characterized as productive of mucoid sputum. The am End: 02-Aug-2010 13:26 ount of sputum produced is scanty. The cough occurs all the time. The symptoms have been associated with wheezing, while the symptoms have not been associated with chest pain, fever, headache or runny nose.Encounter Diagnosis: BRONCHITIS, NOT SPECIFIED ACUTE OR CHRONIC (490.), Cough (786.2), Wheezing (786.07) [facility] Phone Encounter On: 09-Jul-2010 10:18 Encounter Diagnosis: Hypercholesteremia (272.0) End: 09-Jul-2010 10:19 [facility] Office Visit On: 27-May-2010 14:05 Encounter Reason: Follow up for chronic medical issues - The patient feels well with minor complaints and has decreased energy level. Patient has been compliant with instructions. Current medication use: compliant with d End: 27-May-2010 15:11 osing regimen. Patient sleeps 7 hours per night. Impact of disease: emotional impact- mild. Nutrition: balanced diet and supplemental vitamins. The medical issues the patient is following up for include blood sugar issues, cardiac issues, high blood pressure, high cholesterol and other (hx. prostate cancer, unspecified hearing loss, vitamin d def. 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 Patient has been compliant with instructions. Current medication use: no End: 28-Feb-2010 13:37 side effects ,compliant with dosing regimen and considered effective by patient. Patient sleeps 7 hours per night. Impact of disease: emotional impact-mild. Nutrition: balanced diet and supplemental vit amins. The medical issues the patient is following up for include blood sugar issues ,cardiac issues ,high blood pressure ,high cholesterol and other (obesity, elevated PSA, vitamin d def., unspecified hearing loss). 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), Fibrillation, atrial (427.31), DEFICIENCY, VITAMIN D NOS (268.9), Obesity,unspecified (278.00), Hypercholesteremia (272.0), Unspecified hearing loss (389.9), Sinusitis,chronic (473.9), Other specified periodontal diseases (523.8), Elavated PSA (790.93) [facility] Phone Encounter On: 07-Jan-2010 17:58 [facility] End: 07-Jan-2010 18:02 Phone Encounter On: 02-Nov-2009 12:42 Encounter Diagnosis: DEFICIENCY, VITAMIN D NOS (268.9) End: 02-Nov-2009 12:45 [facility] Office Visit On: 01-Nov-2009 11:00 Encounter Reason: Follow up for chronic medical issues - The patient feels well with no complaints ,has good energy level and is sleeping well. Patient has been compliant with instructions. Current medication use: no chicho End: 01-Nov-2009 11:54 e effects ,compliant with dosing regimen and considered effective by patient. Patient sleeps 8 hours per night. Impact of disease: no overall impact. Nutrition: balanced diet. The medical issues the pat ient is following up for include All identified problems below ,blood sugar issues (DM) ,high blood pressure and high cholesterol. blood pressure range : (120/80) ,fasting blood sugars : (177) and postprandial sugars : (120). , [ADDITIONAL REASON] Follow up, Laboratory Test Results - Date: (10/30/09). Current symptoms/reason for visit include/s Follow up visit with no current symptoms. There is a family history of cardiovascul ar disease (parents) , while there is no family history of breast cancer ,cystic fibrosis ,Down's syndrome ,mental retardation or myocardial infarction before age 55. Past medical history includes diabe butch mellitus ,elevated cholesterol and hypertension. Encounter Diagnosis: Diabetes, Type II, controlled (250.00), Hypercholesteremia (272.0), Obesity,unspecified (278.00), Prostate cancer [facility] Annotation/Addendum On: 02-Aug-2009 12:40 [facility] End: 02-Aug-2009 20:40 Office Visit On: 02-Aug-2009 12:07 Encounter Reason: Follow up for chronic medical issues - The patient feels well with minor complaints ,has good energy level and is sleeping well. Patient has been compliant with instructions. Current medication use: no End: 02-Aug-2009 12:33 side effects ,compliant with dosing regimen and considered effective by patient. Patient sleeps 8 hours per night. Impact of disease: emotional impact-mild. Nutrition: balanced diet and supplemental vit amins. The medical issues the patient is following up for include blood sugar issues ,cardiac issues ,high blood pressure ,high cholesterol and other (speech/hearing impaired, prostate cancer ). Encounter Diagnosis: Diabetes, Type II, controlled (250.00), Hypercholesteremia (272.0), Other specified periodontal diseases (523.8), Sinusitis,chronic (473.9), Unspecified hearing loss (389.9), Hypertension 401.1 (Renamed from Hypertension (401.0)), Obesity,unspecified (278.00), Elavated PSA (790.93) [facility] Office Visit On: 10-Apr-2009 12:59 Encounter Reason: Follow up for chronic medical issues - The patient feels well with no complaints ,has good energy level and is sleeping well. Patient has been compliant with instructions. Current medication use: no chicho End: 10-Apr-2009 13:31 e effects ,compliant with dosing regimen and considered effective by patient. Patient sleeps 7 hours per night. Impact of disease: emotional impact-mild. Nutrition: balanced diet and supplemental vitami ns. The medical issues the patient is following up for include blood sugar issues ,cardiac issues ,high blood pressure ,high cholesterol and other (hx. prostate cancer, obesity, unspecified hearing loss, slurred speech ). Encounter Diagnosis: Diabetes, Type II, controlled (250.00), Hypercholesteremia (272.0), Other specified periodontal diseases (523.8), Unspecified hearing loss (389.9), Sinusitis,chronic (473.9), Hypertension 401.1 (Renamed from Hypertension (401.0)), Elavated PSA (790.93), Colon polyp (211.3), Prostate cancer, Obesity,unspecified (278.00), Actinic keratosis (702.0) [facility] Office Visit On: 23-Jan-2009 13:30 Encounter Diagnosis: Other specified periodontal diseases (523.8), Hypercholesteremia (272.0) End: 23-Jan-2009 14:15 [facility] Office Visit On: 01-Jan-2009 10:39 Encounter Reason: Follow up for chronic medical issues - The patient feels well with no complaints ,has good energy level and is sleeping well. Patient has been compliant with instructions. Current medication use: no chicho End: 01-Jan-2009 11:02 e effects ,compliant with dosing regimen and considered effective by patient. Patient sleeps 7 hours per night. Impact of disease: emotional impact-mild. Nutrition: balanced diet and supplemental vitami ns. The medical issues the patient is following up for include blood sugar issues ,cardiac issues ,high blood pressure ,high cholesterol and other (obesity, hx. prostate cancer, unspecified hearing loss ). Encounter Diagnosis: Diabetes, Type II, controlled (250.00), Hypercholesteremia (272.0), Sinusitis,chronic (473.9), Knee pain (719.46), Elavated PSA (790.93), Unspecified hearing loss (389.9), Obesity,unspecified (278.00), Actinic keratosis (702.0), Prostate cancer, Hypertension 401.1 (Renamed from Hypertension (401.0)), Colon polyp (211.3), Epigastric pain (789.06) [facility] Phone Encounter On: 09-Oct-2008 14:05 [facility] End: 09-Oct-2008 14:06 Office Visit On: 14-Sep-2008 11:37 Encounter Reason: Follow up for chronic medical issues - The patient feels well with minor complaints ,has good energy level and is sleeping well. Patient has been compliant with instructions. Current medication use: no End: 14-Sep-2008 12:45 side effects ,compliant with dosing regimen and considered effective by patient. Patient sleeps 7 hours per night. Impact of disease: emotional impact-mild. Nutrition: balanced diet. The medical issues the patient is following up for include blood sugar issues ,cardiac issues ,high blood pressure ,high cholesterol and other (hx. prostate cancer, obesity, unspecified hearing loss). Encounter Diagnosis: Actinic keratosis (702.0), Diabetes, Type II, controlled (250.00), Hypercholesteremia (272.0), Sinusitis,chronic (473.9), Knee pain (719.46), Colon polyp (211.3), Elavated PSA (790.93), Hypertension 401.1 (Renamed from Hypertension (401.0)), Unspecified hearing loss (389.9), Prostate cancer, Obesity,unspecified (278.00) [facility] Office Visit On: 08-Jun-2008 10:31 Encounter Reason: Follow up for chronic medical issues - The patient feels well with no complaints ,has good energy level and is sleeping well. Patient has been compliant with instructions. Current medication use: no chicho End: 08-Jun-2008 11:52 e effects ,compliant with dosing regimen and considered effective by patient. Patient sleeps 7 hours per night. Impact of disease: emotional impact-mild. Nutrition: balanced diet. The medical issues the patient is following up for include blood sugar issues ,cardiac issues ,high blood pressure ,high cholesterol and other (hx. prostate cancer ). Encounter Diagnosis: Diabetes, Type II, controlled (250.00), Hypertension 401.1 (Renamed from Hypertension (401.0)), Hypercholesteremia (272.0), Sinusitis,chronic (473.9), Knee pain (719.46), Obesity,unspecified (278.00), Colon polyp (211.3), Prostate cancer, Elavated PSA (790.93), Unspecified hearing loss (389.9) [facility] Office Visit On: 07-Mar-2008 14:34 Encounter Reason: Follow up for chronic medical issues - The patient feels well with no complaints ,has good energy level and is sleeping well. Patient has been compliant with instructions. Current medication use: no chicho End: 07-Mar-2008 15:01 e effects ,compliant with dosing regimen and considered effective by patient. Patient sleeps 7 hours per night. Impact of disease: emotional impact-mild. Nutrition: balanced diet. The medical issues the patient is following up for include blood sugar issues ,cardiac issues ,high blood pressure ,high cholesterol and other (prostate cancer). Encounter Diagnosis: Diabetes, Type II, controlled (250.00), Hypertension 401.1 (Renamed from Hypertension (401.0)), Hypercholesteremia (272.0), Sinusitis,chronic (473.9), Knee pain (719.46), Unspecified hearing loss (389.9), Pre-operative examination, unspecified (V72.84), Elavated PSA (790.93), Obesity,unspecified (278.00), Prostate cancer, Colon polyp (211.3) [facility] Office Visit On: 03-Jan-2008 7:40 Encounter Reason: Injections - The medication the patient is here to receive is other (supartz injection left knee ). Encounter Diagnosis: Knee pain (719.46) End: 03-Jan-2008 14:23 [facility] Office Visit On: 27-Dec-2007 12:59 Encounter Reason: Injections - The medication the patient is here to receive is other (supartz). Note for Injections: left knee Encounter Diagnosis: Knee pain (719.46) End: 27-Dec-2007 13:36 [facility] Office Visit On: 20-Dec-2007 8:20 Encounter Reason: Injections - The medication the patient is here to receive is other (supartz). Note for Injections: left knee Encounter Diagnosis: Knee pain (719.46) End: 20-Dec-2007 13:29 [facility] Office Visit On: 13-Dec-2007 7:51 Encounter Reason: Injections - The medication the patient is here to receive is other (supartz). Note for Injections: left knee Encounter Diagnosis: Knee pain (719.46) End: 13-Dec-2007 16:35 [facility] Office Visit On: 06-Dec-2007 14:22 Encounter Reason: Follow up for chronic medical issues - The patient feels well with no complaints ,has good energy level and is sleeping well. Patient has been compliant with instructions. Current medication use: no chicho End: 06-Dec-2007 14:51 e effects. Patient sleeps 7 hours per night. Impact of disease: no overall impact. Nutrition: balanced diet. The medical issues the patient is following up for include All identified problems below ,blo od sugar issues ,cardiac issues ,high blood pressure and high cholesterol. Encounter Diagnosis: Diabetes, Type II, controlled (250.00), Hypercholesteremia (272.0), Hypertension (401.0), Knee pain (719.46) [facility] Office Visit On: 31-Aug-2007 10:46 Encounter Reason: Preoperative evaluation - The patient feels well with no complaints ,has good energy level and is sleeping well. Surgical procedures include: prostatectomy (Dr. Mo @ [facility] ). Date of p End: 31-Aug-2007 11:25 rocedure: (09-28-07 ). There have been no problems with general anesthesia or blood/blood products. Prosthetics include: dentures (upper and lower ) and eye glasses. Note for Preoperative evaluation: no trouble surgery in past. blood sugar stable. Encounter Diagnosis: Pre-operative examination, unspecified (V72.84), Diabetes, Type II, controlled (250.00), Hypertension (401.0), Hypercholesteremia (272.0), Knee pain (719.46) [facility] Office Visit On: 12-Aug-2007 12:04 Encounter Reason: Follow up for chronic medical issues - The patient feels well with minor complaints ,has good energy level and is sleeping well. Patient has been compliant with instructions. Current medication use: no End: 12-Aug-2007 12:46 side effects ,compliant with dosing regimen and considered effective by patient. Patient sleeps 8 hours per night. Impact of disease: emotional impact-mild. Nutrition: balanced diet and supplemental vit amins. The medical issues the patient is following up for include blood sugar issues ,cardiac issues ,high blood pressure ,high cholesterol and other (obesity, prostate cancer ). Encounter Diagnosis: Diabetes, Type II, controlled (250.00), Hypertension (401.0), Sinusitis,chronic (473.9), Unspecified hearing loss (389.9), Elavated PSA (790.93), Knee pain (719.46), Hypercholesteremia (272.0), Obesity,unspecified (278.00) [facility] Office Visit On: 13-May-2007 12:27 Encounter Reason: Follow up for chronic medical issues - The patient feels well with minor complaints ,has good energy level and is sleeping well. Patient has been compliant with instructions. Current medication use: no End: 13-May-2007 13:20 side effects ,compliant with dosing regimen and considered effective by patient. Patient sleeps 7 hours per night. Impact of disease: emotional impact-mild. Nutrition: balanced diet. The medical issues the patient is following up for include blood sugar issues ,cardiac issues ,high blood pressure and high cholesterol. Encounter Diagnosis: Diabetes, Type II, controlled (250.00), Hypertension (401.0), Sinusitis,chronic (473.9), Unspecified hearing loss (389.9), Elavated PSA (790.93), Hypercholesteremia (272.0), Knee pain (719.46) [facility] Historical Summary On: 28-Apr-2007 8:48 [facility] End: 28-Apr-2007 8:51 Office Visit On: 04-Feb-2007 13:51 Encounter Reason: Follow up for chronic medical issues - The patient feels well with no complaints ,has decreased energy level and is sleeping well. Patient has been compliant with instructions. Current medication use: n End: 04-Feb-2007 14:33 o side effects ,compliant with dosing regimen and considered effective by patient. Patient sleeps 9 hours per night. Nutrition: balanced diet. The medical issues the patient is following up for include All identified problems below and other (diabetes type 2, hypertension, sinuitis chronic,hypercholesteremia, unspec. hearing loss, elevated PSA, knee pain). fasting blood sugars : (range from 111 to 144). , [ADDITIONAL REASON] Follow up, Laboratory Test Results - Lab results: other (Lipid, PSA 01/28/07). Encounter Diagnosis: Diabetes, Type II, controlled (250.00), Hypertension (401.0), Sinusitis,chronic (473.9), Unspecified hearing loss (389.9), Elavated PSA (790.93), Knee pain (719.46), Hypercholesteremia (272.0) [facility] Refill Request On: 05-Jan-2007 13:51 [facility] End: 05-Jan-2007 13:52 Refill Request On: 31-Dec-2006 10:12 [facility] End: 31-Dec-2006 10:16 Office Visit On: 05-Nov-2006 13:13 Encounter Reason: Follow up, Laboratory Test Results - Lab results: abnormal blood chemistry and elevated PSA. Date: (10-20-06). Current symptoms/reason for visit include/s Symptoms include joint pains (left knee ). Past m End: 05-Nov-2006 13:45 edical history includes cardiovascular disease ,diabetes mellitus ,elevated cholesterol ,elevated triglycerides and hypertension. Note for Follow up, Laboratory Test Results: am FBS 170, kneeling on k nee and next day bother him since not lock pop give outEncounter Diagnosis: Diabetes, Type II, controlled (250.00), Hypertension (401.0), Sinusitis,chronic (473.9), Unspecified hearing loss (389.9), Hypercholesteremia (272.0), Elavated PSA (790.93), Knee pain (719.46) [facility] Office Visit On: 06-Oct-2006 14:29 Encounter Reason: new patient male physicial - Last seen between 6-12 months ago. General health: feels well with minor complaints ,has decreased energy level and is sleeping well. The patient's appetite is normal. Nutri End: 06-Oct-2006 15:26 tion: normal/adequate. Exercises 0 days per week. Sleeps on average 9 hours per night. Normal bowel and bladder habits. Safety measures include appropriate use of safety belts. There are no current emot ional problems. The patient's libido is absent (states not able to get an erection anymore, but is ok with this ). Preventative measures done by patient are screening, colonoscopy (2004) and PSA (2005). Note for new patient male physicial: not check sugarsEncounter Diagnosis: Diabetes, Type II, controlled (250.00), Hypertension (401.0), Sinusitis,chronic (473.9), Unspecified hearing loss (389.9), Well Male Exam (V70.0) [facility] Historical Summary On: 15-Sep-2006 15:25 [facility] End: 15-Sep-2006 15:37 Payers MedicareAARP/Timbo Palmer; philip guarantor
--- OUTSIDE RECORDS SUMMARY | 2018-09-09 05:21 | XMS RPT_ITS ---
:1940 Author Organization [place] Support Name Relationship Address Phone SERENITY YA Unavailable [address] + [address] [place] [address] VIDHYA YA R Unavailable [address] + [place] [address] R Unavailable Unavailable Unavailable BHAKTI, SERENITY Unavailable [address] + [address] [place] [address] R Unavailable Unavailable Unavailable BHAKTI, SERENITY Unavailable [address] + [address] [place] [address] R Unavailable Unavailable Unavailable BHAKTI, SERENITY Unavailable [address] + [address] [place] [address] R Unavailable Unavailable Unavailable BHAKTI, SERENITY Unavailable [address] + [address] [place] [address] R Unavailable Unavailable Unavailable BHAKTI, SERENITY Unavailable [address] + [address] [place] [address] R Unavailable Unavailable Unavailable BHAKTI, SERENITY Unavailable [address] + [address] [place] [address] R Unavailable Unavailable Unavailable BHAKTI, SERENITY Unavailable [address] + [address] [place] [address] R Unavailable Unavailable Unavailable BHAKTI, SERENITY Unavailable [address] + [address] [place] [address] R Unavailable Unavailable Unavailable BHAKTI, SERENITY Unavailable [address] + [address] [place] [address] R Unavailable Unavailable Unavailable BHAKTI, SERENITY Unavailable [address] + [address] [place] [address] R Unavailable Unavailable Unavailable BHAKTI, SERENITY Unavailable [address] + [address] [place] [address] R Unavailable Unavailable Unavailable BHAKTI, SERENITY Unavailable [address] + [address] [place] [address] R Unavailable Unavailable Unavailable BHAKTI, SERENITY Unavailable [address] + [address] [place] [address] R Unavailable Unavailable Unavailable BHAKTI, SERENITY Unavailable [address] + [address] [place] [address] R Unavailable Unavailable Unavailable BHAKTI, SERENITY Unavailable [address] + [address] [place] [address] R Unavailable Unavailable Unavailable BHAKTI, SERENITY Unavailable [address] + [address] [place] [address] R Unavailable Unavailable Unavailable BHAKTI, SERENITY Unavailable [address] + [address] [place] [address] R Unavailable Unavailable Unavailable BHAKTI, SERENITY Unavailable [address] + [address] [place] [address] R Unavailable Unavailable Unavailable BHAKTI, SERENITY Unavailable [address] + [place] [address] R Unavailable Unavailable Unavailable BHAKTI, SERENITY Unavailable [address] + [place] [address] R Unavailable Unavailable Unavailable Care Team Providers Name Role Phone Yoon Tony Attending Unavailable NatYoon shah Referring Unavailable NatYoon shah Consulting Unavailable Raimundo, [facility] Attending Unavailable Yoon shah Primary Care Unavailable Raimundo, Antonio Attending Unavailable [facility] Yoon Primary Care Unavailable Raimundo, Antonio Referring Unavailable Raimundo, [facility] Attending Unavailable Yoon Tony Referring Unavailable Yoon shah Primary Care Unavailable Raimundo, Antonio Attending Unavailable Raimundo, Antonio Referring [facility]available [facility] Unavailable Raimundo, Antonio Attending Unavailable Raimundo, Antonio Referring Unavailable Yoon shah Primary Care Unavailable Raimundo, [facility] Attending Unavailable Raimundo, Antonio Referring Unavailable Yoon shah Primary Care Unavailable Roger Bhatia Attending Unavailable Raimundo, [facility] Referring Unavailable Ciesa, Yoon Primary Care Unavailable CebuRoger tapia Attending Unavailable Cebul, Roger Referring Unavailable Ciesa, Yoon Primary Care Unavailable Raimundo, [facility] Attending Unavailable Raimundo, [facility] Referring Unavailable Raimundo, Antonio Attending Unavailable Raimundo, Antonio Referring Unavailable Natesa, Yoon Primary Care Unavailable CebulRoger Attending Unavailable Ciesa, Yoon Referring Unavailable Ciesa, Yoon Primary Care Unavailable Raimundo, [facility] Attending Unavailable Raimundo, [facility] Referring Unavailable Ciesa, Yoon Primary Care Unavailable Raimundo, [facility] Attending Unavailable Raimundo, [facility] Referring Unavailable Ciesa, Yoon Primary Care Unavailable Raimundo, [facility] Attending Unavailable Raimundo, [facility] Referring Unavailable Ciesa, Yoon Primary Care Unavailable Ryan Stroud Attending Unavailable Ciesa, Yoon Referring Unavailable Raimundo, [facility] Attending Unavailable Raimundo, [facility] Referring Unavailable Ciesa, Yoon Primary Care Unavailable Raimundo, Antonio Attending Unavailable Raimundo, Antonio Referring Unavailable Ciesa, Yoon Primary Care Unavailable Raimundo, Antonio Attending Unavailable Raimundo, Antonio Referring Unavailable Ciesa, Yoon Primary Care Unavailable Raimundo, [facility] Attending Unavailable Raimundo, [facility] Referring Unavailable esa Yoon Primary Care Unavailable Ciesa, Yoon Primary Care Unavailable Pro Gibbs Attending Unavailable Raimundo, Antonio Attending Unavailable R[facility], [facility] Referring Unavailable Natpanchito Yoon Primary Care Unavailable PROBLEMS PROBLEMS DATE TYPE CONDITION / CODE ATTENDING STATUS SOURCE Unknown I48.0 - Paroxysmal atrial Raimundo, [facility] Active [facility] fibrillation / Community I48.0(ICD-10) Hospital Repository Unknown Z79.01 - senior care Raimundo, Antonio Active [facility] (current) use of Community anticoagulants / Hospital Z79.01(ICD-10) Repository Unknown I48.1 - Persistent atrial Raimundo, [facility] Active [facility] fibrillation / Community I48.1(ICD-10) Hospital Repository Unknown I65.23 - Occlusion and Roger Bhatia Active [facility] stenosis of bilateral Community carotid arteries / Hospital I65.23(ICD-10) Repository Unknown Z86.73 - Personal history Raimundo, Antonio Active [facility] of transient ischemic Community attack (TIA), and Hospital cerebral infarction Repository without residual deficits / Z86.73(ICD-10) Unknown Z01.810 - Encounter for Raimundo, Atnonio Active [facility] preprocedural [facility] cardiovascular [facility] examination / Repository Z01.810(ICD-10) Unknown I10 - Essential (primary) Raimundo, [facility] Active [facility] hypertension / Community I10(ICD-10) Hospital Repository Unknown E78.00 - Pure Raimundo, [facility] Active [facility] hypercholesterolemia, Community unspecified / Hospital E78.00(ICD-10) Repository Unknown E78.0 - Pure Raimundo, [facility] Active [facility] hypercholesterolemia / Community E78.0(ICD-10) Hospital Repository PROCEDURES PROCEDURES No Procedure Records FoundRESULTS RESULTS PROTHROMBIN TIME W/INR Collected: 08/02/2018 Status: F Source: [place] 9:20 AM [facility] REPOSITORY TYPE CODE TESTS RESULT OUT OF RANGE REFERENCE UNITS LAB L300.4150 11.7-14.9 SECONDS High PROTIME 23.0 LAB L300.4200 Normal INR 2.0 Performed By: #### L300.3900 #### [facility] [address] [facility] [address] [place], [address] EMERGENCY DEPARTMENT Observed: 07/14/2018 Status: F Source: [place] SUMMARY 11:02 PM [facility] REPOSITORY [facility] Medical Records Department [address] [place] [address] Emergency Department Summary 07/14/18 2248 MR#: [id number] Acct: [id number] Name: VIDHYA YA Rep #: [id number] : 1940 77 From: Pro Gibbs MD PCP: Yoon Tony NP Status: DEP ER - ER Visit Summary Date of Service: 07/14/18 Chief Complaint: [] Runny nose History of Present Illness: The patient is a 77 M stated he had a runny nose for the last couple days gradual onset intermittent. He is also had a very small cyst on the top of his palate. It was therapeutic 2 years ago and broke open and went away and it came back a few days ago. He is able to put pressure on it and trying to break it open. Current severity is mild Physical Examination: [] Vital signs reviewed General: Well-nourished well-developed Head: Normocephalic atraumatic Eyes: Pupils equal round and reactive to light extraocular movements intact ENT: TMs clear no hemotympanum no trauma. His oral exam hard palate shows a 0.5 x 0.5 cm superficial cyst without abscess. It is almost completely flat Neck: Nontender full range of motion Cardiovascular: Regular rate rhythm no murmurs normal S1-S2 Respiratory: No distress clear to auscultation bilaterally chest nontender Abdomen: Soft nontender nondistended normal bowel sounds no masses Back: Nontender no CVA tenderness Extremities: Nontender active range of motion 4 extremities no trauma Skin: Normal color no trauma Neuro alert oriented cranial nerves II through XII intact normal strength sensation reflexes Test Results: [] Emergency Department Course and Treatment: [] Patient will get a referral to ENT. I do not feel this needs drained at this time. It is not an abscess. He will use Orajel if it is bothering him. It is the main reason he came in Treatment Plan: [] Disposition: [] Impression: [] Hard palate lesion This note was generated with [employer] dictation software. It may contain incorrect words, spelling, and punctuation that were not noted in review of the chart prior to signing ED Disposition - Plan for ED Patient: Chief Complaint: Cold Sx Referrals: Yoon Tony, BEVEL OPERATOR-C [Primary Care Provider] - What to do if you have Problems For any increased pain, shortness of breath, bleeding, nausea or vomiting, chest pain, or any unexpected problems, contact your Primary Care Provider. Call [facility] ([phone]) or report to the closest Emergency Room. Call 911 if necessary. 07/14/18 2302 <Electronically signed by Pro Gibbs MD> Date Pro Gibbs MD Cosigner Signature (If Indicated): Date CC: Yoon Tony NP DISCHARGE INSTRUCTION Observed: 07/14/2018 Status: F Source: [place] 11:02 PM [facility] REPOSITORY [facility] Medical Records Department [address] [place] [address] Discharge Instruction 07/14/18 2249 MR#: [id number] Acct: [id number] Name: VIDHYA YA Rep #: [id number] : 1940 77 From: Pro Gibbs MD PCP: Yoon Tony NP Status: DEP ER ED Disposition - Plan for ED Patient: Disposition: Home or Assisted Living Chief Complaint: Cold Sx Instructions: ED Blank Diagnosis Form Referrals: Yoon Tony NP-C [Primary Care Provider] - Gregorio Yanes MD [STAFF PHYSICIAN] - Additional Instructions: Have a cyst on your hard palate. Follow-up with the ENT physician What to do if you have Problems For any increased pain, shortness of breath, bleeding, nausea or vomiting, chest pain, or any unexpected problems, contact your Primary Care Provider. Call [facility] ([phone]) or report to the closest Emergency Room. Call 911 if necessary. 07/14/18 2302 <Electronically signed by Pro Gibbs MD> Date Pro Gibbs MD Cosigner Signature (If Indicated): Date CC: Yoon Tony NP PROTHROMBIN TIME W/INR Collected: 07/05/2018 Status: F Source: [place] 2:08 PM [facility] REPOSITORY TYPE CODE TESTS RESULT OUT OF RANGE REFERENCE UNITS LAB L300.4150 11.7-14.9 SECONDS High PROTIME 25.3 LAB L300.4200 Normal INR 2.3 Performed By: #### L300.3900 #### [facility] [address] [place], [address] PROTHROMBIN TIME W/INR Collected: 06/04/2018 Status: F Source: [place] 1:41 PM [facility] REPOSITORY TYPE CODE TESTS RESULT OUT OF RANGE REFERENCE UNITS LAB L300.4150 11.7-14.9 SECONDS High PROTIME 29.5 LAB L300.4200 Normal INR 2.8 Performed By: #### L300.3900 #### [facility] [address] [place], [address] PROTHROMBIN TIME W/INR Collected: 05/21/2018 Status: F Source: [place] 12:47 PM [facility] REPOSITORY TYPE CODE TESTS RESULT OUT OF RANGE REFERENCE UNITS LAB L300.4150 11.7-14.9 SECONDS High PROTIME 28.8 LAB L300.4200 Normal INR 2.7 Performed By: #### L300.3900 #### [facility] [address] [place], [address] PROTHROMBIN TIME W/INR Collected: 05/12/2018 Status: F Source: [place] 1:42 PM [facility] REPOSITORY Order Comment: Comments: STANDING ORDER Comments: STANDING ORDER TYPE CODE TESTS RESULT OUT OF RANGE REFERENCE UNITS LAB L300.4150 11.7-14.9 SECONDS High PROTIME 20.9 LAB L300.4200 Normal INR 1.8 Performed By: #### L300.3900 #### [facility] [address] [place], [address] PROTHROMBIN TIME W/INR Collected: 04/29/2018 Status: F Source: [place] 1:31 PM [facility] REPOSITORY TYPE CODE TESTS RESULT OUT OF RANGE REFERENCE UNITS LAB L300.4150 11.7-14.9 SECONDS High PROTIME 22.0 LAB L300.4200 Normal INR 1.9 Performed By: #### L300.3900 #### [facility] [address] [place], [address] PROTHROMBIN TIME W/INR Collected: 03/30/2018 Status: F Source: [place] 11:14 AM [facility] REPOSITORY TYPE CODE TESTS RESULT OUT OF RANGE REFERENCE UNITS LAB L300.4150 11.7-14.9 SECONDS High PROTIME 27.1 LAB L300.4200 Normal INR 2.5 Performed By: #### L300.3900 #### [facility] [address] [place], [address] CARDIOLOGY VISIT Observed: 03/17/2018 Status: F Source: [place] REPORT 4:34 PM [facility] REPOSITORY [facility] [address] [place] [address] OFFICE VISIT Date of Service: 03/15/18 MR#: [id number] Acct: [id number] Name: VIDHYA YA Rep #: [id number] : 1940 Provider: WILLIAN Stroud Age/Sex: 77/M Location: [facility] Status: Signed HPI HPI Details: VIDHYA YA, is a 77 M who presents to the office today for a cardiovascular outpatient follow-up. 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 Pt. denies chest, arm, jaw, or neck discomfort. His exercise tolerance is stable. Pt. denies symptoms of CHF, lightheadedness, dizziness, near syncope, or syncopal episodes. Pt. denies edema or claudication issues. Pt. denies orthopnea, PND, fever, chills, blood in urine, blood in stool, myalgia, or unexplainable fatigue. He states fluctuating episodes of palpitations and feels fatigued. He did not undergo knee surgery after last visit d/t increase CVA risk. He denies any worsening SOB, this improves with rest and is made worse with the heat. Intake Vital Signs03/15/18 Blood Pressure 110/60 03/15/18 Blood Pressure Location Lt brachial Intake Visit Reasons: 6 M FU 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: No Accompanied by: Is patient in pain?: No Allergies No Known Allergies Allergy (Verified 03/15/18 12:50) Medications Multivitamins,Therapeutic [Multivitamin] 1 tab PO DAILY 10/21/13 [History Confirmed 03/15/18] warfarin 1 mg tablet 1 mg PO QDAY 08/06/17 [History Confirmed 03/15/18] hydrochlorothiazide 25 mg tablet 25 mg PO QDAY #90 tab 09/03/17 [Rx Confirmed 03/15/18] acetaminophen 325 mg tablet 650 mg PO QDAY tab 09/09/17 [History Confirmed 03/15/18] amlodipine 10 mg tablet 10 mg PO QDAY 09/09/17 [History Confirmed 03/15/18] atorvastatin 80 mg tablet 80 mg PO QDAY 09/09/17 [History Confirmed 03/15/18] cyanocobalamin (vit B-12) 100 mcg tablet 100 mcg PO QDAY 09/09/17 [History Confirmed 03/15/18] metformin 1,000 mg tablet 1,000 mg PO BID 09/15/17 [History Confirmed 03/15/18] warfarin 2 mg tablet 2 mg PO .COMPLEX #180 tab 11/13/17 [Rx Confirmed 03/15/18] lisinopril 20 mg tablet 20 mg PO QDAY tab 03/15/18 [History Confirmed 03/15/18] Ejection fraction %: 60 to 64 PFSH Medical History Atrial fibrillation (Chronic) Diabetes mellitus, type II (Chronic) Hyperlipidemia (Chronic) Hypertension (Chronic) Dyspnea on exertion (Chronic) History of stroke (Chronic) 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) Patent foramen ovale (Chronic) Atherosclerotic heart disease of [place] coronary artery without angina pectoris (Chronic) Paroxysmal atrial fibrillation (Chronic) senior care (current) use of anticoagulants (Chronic) History of prostate cancer (Acute) Surgical History S/P prostatectomy (Acute) S/P total knee replacement (Acute) Family History Sister Diabetes Heart disease Brother Colon cancer Father CVA (cerebral vascular accident) Social History Smoking Status: Never smoker alcohol intake: never caffeine: Yes Type: carbonated beverages, coffee ROS Const Const: Positive for fatigue; negative for weakness, body ache, fever(s) or chills ENT ENT: Negative for dizziness Cardio Chest Pain: No Palpitations: Yes Edema: None Muscle aches with walking: None Resp Respiratory: Positive for SOB with activity; negative for SOB at rest, SOB orthopnea\SOB lying down or paroxysmal nocturnal dyspnea GI GI: Negative nausea, black,tarry stools, bright, red blood in stools or vomiting blood/hematemesis : Negative for hematuria or frequent nighttime urination/ nocturia Musc Musc: Positive for joint pain (left knee); negative for muscle aches/ myalgia Skin Skin: Negative non-healing lesions or rash Neuro Neuro: Negative for weakness, dizziness, lightheadedness, near syncope, syncope or orthostatic symptoms Endo Endo: Positive for fatigue Allergy Allergy/Immunology: Negative for rash Cardiology Exam Const Appearance: cooperative, healthy appearing, comfortable and no acute distress Orientation: alert, awake and oriented x3 Head Head: normal to inspection Ears: hearing grossly normal bilaterally Nose: external nose normal Face and Sinus: face symmetric Mouth: oral mucosae normal Eyes General: appearance normal, both eyes and all related structures Eyelids: eyelids normal Neck Neck: no JVD and normal visual inspection Carotids: normal carotid upstroke Chest Chest inspection: normal inspection of the chest and normal respiratory effort; negative cough Auscultation: Bilateral: Clear to Auscultation Cardio Rate: regular rate Rhythm: regular rhythm Heart sounds: S1 normal and S2 normal; negative rub or gallop GI GI: normal to inspection Neuro General: alert, awake, oriented x3 and CN's II-XI intact bilaterally Skin Skin: no rashes or lesions noted Extremities Pulses: Normal: Right Posterior Tibial Pulse, Left Posterior Tibial Pulse, Right Radial Pulse, Left Radial Pulse Lower Extremity Edema: None: Bilateral Psych Psychological: normal affect Supplemental Info Echocardiogram from September 2017 showed normal LV size, estimated ejection fraction of 60%, mild mitral valve insufficiency, RVSP of 42 mmHg, mild aortic valve insufficiency, and when compared to previous study no significant changes. Carotid duplex ultrasound from September 2017 Moderate (50- 69%) stenosis right extracranial internal carotid. Left internal carotid artery is occluded. Flow within the vertebral arteries is antegrade bilaterally.Moderate (50-69%) stenosis right extracranial internal carotid. Left internal carotid artery is occluded. Flow within the vertebral arteries is antegrade bilaterally. Stress test from February 2016 was a normal pharmacological myocardial perfusion stress test with a preserved ejection fraction of 63%. Heart catheterization from December 2009 showed nonobstructive coronary artery disease, normal LV function, normal filling pressures, and hypertensive heart disease. Assessment AND Plan 1. Persistent atrial fibrillation I48.1 Plan - ALEX Tyson Patient's heart rate is well controlled without any beta-blockers. He has not tolerated beta-blockers in the past due to bradycardia. He does acknowledge some episodes of increased palpitations which results in fatigue. This resolves on its own. We will continue to monitor this. He will continue with Coumadin therapy. His most recent echocardiogram in June 2018 showed preserved ejection fraction of 60%. 2. Atherosclerosis of [place] coronary artery of [place] heart without angina pectoris I25.10 Plan - ALEX Tyson Patient's heart catheterization in December 2009 showed non-obstructive coronary artery disease. His stress test in February 2016 was negative for stress-induced myocardial ischemia. His echocardiogram in September 2017 showed preserved ejection fraction of 60%. Patient denies any chest pain, arm pain, jaw pain, or neck pain. His shortness of breath has remained stable. He will continue current medications and we will continue to monitor. 3. Essential hypertension I10 Plan - ALEX Tyson Patient blood pressure initially was elevated. Upon recheck it normalized. He will continue current medications and we will continue to monitor. 4. Pure hypercholesterolemia E78.00 Plan - ALEX Tyson He will continue with current high-dose statin medication. 5. senior care (current) use of anticoagulants Z79.01 Plan - ALEX Tyson He will continue with Coumadin therapy maintaining an INR goal of 2 3. Plan Detail Additional Comments - ALEX Tyson Discussed the above patient with Dr. Eubanks, he agrees with the plan of care. [...] prior to saving. Follow Up 6 Months ([facility]EM[facility]ER FLOOR) Coding Level of Care Code Off vis,est,level 3 Diagnoses Persistent atrial fibrillation I48.1 Atrial fibrillation type: persistent Atherosclerosis of [place] coronary artery of [place] heart without angina pectoris I25.10 [place] vs. transplanted heart: [place] heart Essential hypertension I10 Hypertension type: essential hypertension Pure hypercholesterolemia E78.00 Hyperlipidemia type: pure hypercholesterolemia [employer]modal customer service (current) use of anticoagulants Z79.01 Coding Level of Care Code Off vis,est,level 3 Diagnoses Persistent atrial fibrillation I48.1 Atrial fibrillation type: persistent Atherosclerosis of [place] coronary artery of [place] heart without angina pectoris I25.10 [place] vs. transplanted heart: [place] heart Essential hypertension I10 Hypertension type: essential hypertension Pure hypercholesterolemia E78.00 Hyperlipidemia type: pure hypercholesterolemia senior care (current) use of anticoagulants Z79.01 03/15/18 1553 <Electronically signed by Ryan Stroud BEVEL OPERATOR-C> Date Ryan Stroud BEVEL OPERATOR-C 03/17/18 1634<Electronically signed by Antonio Eubanks MD> Cosigner Signature: Date (if applicable) Antonio Eubanks MD CC: Yoon Tony NP PROTHROMBIN TIME W/INR Collected: 02/26/2018 Status: F Source: [place] 12:04 PM [facility] REPOSITORY TYPE CODE TESTS RESULT OUT OF RANGE REFERENCE UNITS LAB L300.4150 11.7-14.9 SECONDS High PROTIME 26.5 LAB L300.4200 Normal INR 2.4 Performed By: #### L300.3900 #### [facility] [address] [place] [address], [id number] PROTHROMBIN TIME W/INR Collected: 01/28/2018 Status: F Source: [place] 10:13 AM [facility] REPOSITORY TYPE CODE TESTS RESULT OUT OF RANGE REFERENCE UNITS LAB L300.4150 11.7-14.9 SECONDS High PROTIME 22.9 LAB L300.4200 Normal INR 2.0 Performed By: #### L300.3900 #### [facility] [address] [place], [address] PROTHROMBIN TIME W/INR Collected: 12/30/2017 Status: F Source: [place] 12:03 PM [facility] REPOSITORY TYPE CODE TESTS RESULT OUT OF RANGE REFERENCE UNITS LAB L300.4150 11.7-14.9 SECONDS High PROTIME 25.7 LAB L300.4200 Normal INR 2.3 Performed By: #### L300.3900 #### [facility] [address] [place], [address] PROTHROMBIN TIME W/INR Collected: 11/30/2017 Status: F Source: [place] 2:06 PM [facility] REPOSITORY TYPE CODE TESTS RESULT OUT OF RANGE REFERENCE UNITS LAB L300.4150 11.7-14.9 SECONDS High PROTIME 24.3 LAB L300.4200 Normal INR 2.2 Performed By: #### L300.3900 #### [facility] [address] [place], [address] SURGERY VISIT REPORT Observed: 11/25/2017 Status: F Source: [place] 4:45 PM [facility] REPOSITORY [facility] [address] [place] [address] OFFICE VISIT Date of Service: 11/25/17 MR#: [id number] Acct: [id number] Name: VIDHYA YA J Rep #: [id number] : 1940 Provider: Roger Bhatia MD Age/Sex: 77/M Location: [facility] Status: Signed Intake Intake Visit Reasons: Discuss CTA results Chief Complaint: CTA results--discuss surgery 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: No Is patient in pain?: No [...] 10 mg PO QDAY 09/09/17 [History Confirmed 11/25/17] atorvastatin 80 mg tablet 80 mg PO QDAY 09/09/17 [History Confirmed 11/25/17] cyanocobalamin (vit B-12) 100 mcg tablet 100 mcg PO QDAY 09/09/17 [History Confirmed 11/25/17] metformin 1,000 mg tablet 1,000 mg PO BID 09/15/17 [History Confirmed 11/25/17] metoprolol tartrate 25 mg tablet 25 mg PO .COMPLEX 09/15/17 [History Confirmed 11/25/17] warfarin 2 mg tablet 2 mg PO .COMPLEX #180 tab 11/13/17 [Rx Confirmed 11/25/17] [facility] Medical History Diabetes mellitus, type II (Chronic) Hyperlipidemia (Chronic) Hypertension (Chronic) Dyspnea on exertion (Chronic) History of stroke (Chronic) 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) Patent foramen ovale (Chronic) Atherosclerotic heart disease of [place] coronary artery without angina pectoris (Chronic) Paroxysmal atrial fibrillation (Chronic) 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 Please refer to my previous office note of October 27, 2017. Approximately 4 years prior the patient had had a stroke. The patient was under evaluation by Dr. Antonio Eubanks. On September 29, 2017 at the [facility] carotid duplex imaging was obtained. Peak systolic velocity within the right internal carotid was 223 cm per sec with end-diastolic flow 47. This was felt to be consistent with 50-69% stenosis of the right internal carotid. The patient was noted to have an occluded left internal carotid. At my request we proceeded with CTA of the carotids. On November 04, 2017 at the [facility] CTA of the carotids were obtained. This demonstrated moderate narrowing of the right carotid bulb. This was not felt to be hemodynamically significant. The patient was noted to have occlusion of the origin of the left internal carotid with subsequent reconstitution via collaterals. Assessment AND Plan 1. 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 I have her viewed the ultrasound imaging and CT imaging of the patient's carotids. He is well aware that he has occlusion of the left internal carotid and moderate disease on the right. I am not recommending surgical intervention at this time. We extensively discussed the need for him to participate in his general health. I am recommending a plant-based diet and weight loss and daily exercise and cholesterol/lipid control and blood pressure control and diabetes control and hypertension management. The patient is aware that these are modifiable factors and that he can [...] in his clinical progress. Cc: Dr. Antonio Eubanks and WILLIAN Babcock M.D., F.A.C.S. 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 Point of Care [address] [place] [address] CTA NECK W/WO Observed: 11/04/2017 Status: F Source: [place] CONTRAST 3:32 PM [facility] REPOSITORY [facility] [address] [place] [address] CTA Neck W/WO Contrast MR#: [id number] Acct: [id number] Name: VIDHYA YA Rep #: [id number] : 1940 M 77 From: Arcadio Landin MD PCP: Yoon Tony NP Status: REG CLI Study: CTA Neck W/WO Contrast Date of Exam: 11/04/17 Exam# [id number] Ordering Dr: Roger Bhatia MD CTA of the neck Comparison study:, October 17, 2013 Indication carotid stenosis TECHNIQUE: CTA of the neck was performed scanning in a dynamically enhanced fashion following contrast administration followed by sagittal and coronal reconstructions. Radiographic technique was optimized to limit patient radiation dose. FINDINGS: There is mild diffuse soft plaque throughout the right common carotid without evidence for hemodynamically significant stenosis. There is moderate calcific plaque at the carotid bulb and moderate plaque of the origin of the internal carotid without evidence for hemodynamically significant stenosis. There is mild diffuse soft plaque noted within the left common carotid. There is severe calcific plaque of the carotid bulb and origin of the internal carotid with severe greater than 75% stenosis of the internal carotid. There is occlusion slightly more distally and then reconstitution by collaterals The left vertebral is dominant. There is mild calcific plaquing of the distal vertebrals There is no significant segmental stenosis of the vertebrals.. There has been slight interval progression of the calcific plaque bilaterally since prior study. CT/CTA Neck W/WO Contrast IMPRESSION: Moderate to severe atherosclerotic disease more severe on the left with hemodynamically significant stenosis of the origin of the internal carotid and occlusion followed by reconstitution via collaterals. There is moderate narrowing of the right carotid bulb Electronically Signed: Arcadio Landin MD at 17:04 EDT , Service support , CC: Yoon Tony NP; Roger Bhatia MD Special Delivery Worker: Signed PROTHROMBIN TIME W/INR Collected: 11/02/2017 Status: F Source: [place] 9:33 AM [facility] REPOSITORY TYPE CODE TESTS RESULT OUT OF RANGE REFERENCE UNITS LAB L300.4150 11.7-14.9 SECONDS High PROTIME 25.8 LAB L300.4200 Normal INR 2.3 Performed By: #### L300.3900 #### [facility] [address] [place], [address] SURGERY VISIT REPORT Observed: 10/27/2017 Status: F Source: [place] 6:10 PM [facility] REPOSITORY [facility] [address] [place] [address] OFFICE VISIT Date of Service: 10/27/17 MR#: [id number] Acct: [id number] Name: VIDHYA YA Rep #: [id number] : 1940 Provider: Roger Bhatia MD Age/Sex: 77/M Location: [facility] Status: Signed Intake Vital Signs10/27/17 Height 5 ft 4 in 10/27/17 Weight: 218 lb 2 oz Intake Visit Reasons: CAROTID STENOSIS Chief Complaint: CAROTID STENOSIS 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: No Is patient in pain?: No Allergies No Known Allergies Allergy (Verified 10/27/17 13:32) Medications Lisinopril [Zestril] 20 mg PO BID 10/21/13 [History Confirmed 10/27/17] Multivitamins,Therapeutic [Multivitamin] 1 tab PO DAILY 10/21/13 [History Confirmed 10/27/17] warfarin 1 mg tablet 1 mg PO QDAY 08/06/17 [History Confirmed 10/27/17] warfarin 2 mg tablet 2 mg PO QDAY 08/06/17 [History Confirmed 10/27/17] hydrochlorothiazide 25 mg tablet 25 mg PO QDAY #90 tab 09/03/17 [Rx Confirmed 10/27/17] acetaminophen 325 mg tablet 650 mg PO QDAY tab 09/09/17 [History Confirmed 10/27/17] amlodipine 10 mg tablet 10 mg PO QDAY 09/09/17 [History Confirmed 10/27/17] atorvastatin 80 mg tablet 80 mg PO QDAY 09/09/17 [History Confirmed 10/27/17] cyanocobalamin (vit B-12) 100 mcg tablet 100 mcg PO QDAY 09/09/17 [History Confirmed 10/27/17] metformin 1,000 mg tablet 1,000 mg PO BID 09/15/17 [History Confirmed 10/27/17] metoprolol tartrate 25 mg tablet 25 mg PO .COMPLEX 09/15/17 [History Confirmed 10/27/17] [facility] Medical History Diabetes mellitus, type II (Chronic) Hyperlipidemia (Chronic) Hypertension (Chronic) Dyspnea on exertion (Chronic) History of stroke (Chronic) 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) Patent foramen ovale (Chronic) Atherosclerotic heart disease of [place] coronary artery without angina pectoris (Chronic) Paroxysmal atrial fibrillation (Chronic) senior care (current) use of anticoagulants (Chronic) History of prostate cancer (Acute) Surgical History S/P prostatectomy (Acute) S/P total knee replacement (Acute) Family History Sister Diabetes Heart disease Brother Colon cancer Father CVA (cerebral vascular accident) Social History Smoking Status: Never smoker HPI HPI HPI: VIDHYA YA, is a 77 M who presents to the office today for surgical consultation regarding extracranial carotid artery occlusive disease. This patient is referred by Dr. Antonio Eubanks for carotid evaluation. The patient is tentatively considering future total knee replacement. A written copy of my surgical consult recommendations will be returned to Dr. Antonio Eubanks. For at least 5 years the patient's had atrial fibrillation. He is on chronic anticoagulation. He states that about 4 years ago he had a right total knee replacement. The patient and family members present are not very specific as far as the timing of his stroke but there is some suggestion that it was around the time that he was off of his anticoagulation. At the [facility] on September 29, 2017 carotid duplex imaging was obtained. This was interpreted by Dr. Daquan Jones. Peak systolic velocity within the proximal right internal carotid is 223 cm/s with end-diastolic flow of 47. Velocities within the right external carotid artery elevated 139 cm/s peak systolic flow. The left internal carotid is occluded. The left proximal external carotid demonstrates increased velocity. Bilateral vertebrals are patent and antegrade. There is felt to be [...] a slight slurred speech and hearing deficit requiring hearing aids but apparently those issues have been over a more prolonged period of time. He denies any orthostasis. He otherwise feels that he is enjoying good health. He does not get any routine exercise. ROS General General: No weight change, appetite, fatigue, colon cancer, breast cancer or weakness HEENT HEENT: No difficulty swallowing, eye injury, eye surgery, swollen glands or hoarseness Endo Endocrine: Yes diabetes mellitus; no thyroid disease, thyroid cancer, Hair loss, heat intolerance or cold intolerance Skin Skin: No rash or changing moles Breast Breast: No left breast lump, right breast lump, nipple discharge, breast pain, abnormal mammogram, abnormal US or breast enlargement Musc Musculoskeletal: Yes back problems and arthritis; no rheumatoid arthritis, gout or joint pain Cardio Cardiovascular: Yes atrial fibrillation and high blood [...] problem, No black,tarry stools Nilay Hematologic: Yes blood thinners, No blood disorders, No bleeding, No anemia, No blood clots Neuro Neurologic: No system reviewed and no additional complaints, except as docu, No as per HPI, No abnormal walking, No abnormal hearing, No abnormal movements, No abnormal speech, No behavioral changes, No burning sensations, No confusion, No seizure-like activity, No unsteadiness, No dizziness, No localized weakness, No frequent falls, No headache(s), No lack of coordination, No loss of vision, No memory loss, No numbness, No other visual disturbances, No radiating pain, No restless legs, No sensory deficit, No fainting, No tingling, No tremor(s), No weakness, Yes other (CVA 2013) Exam Const General: cooperative, comfortable, healthy appearing, no acute distress Nutritional Appearance: overweight Orientation: alert, awake [facility] Head: normal to inspection Ears: other (Hearing aids bilaterally) Eyes General: appearance normal, both eyes and all related structures Neck Neck: normal visual inspection Chest Chest palpation AND inspection: normal inspection of the chest Breast Palpation: No nipple discharge Resp Effort AND Inspection: normal respiratory effort Auscultation: clear to auscultation bilaterally Cardio Rate: regular rate Rhythm: regular rhythm Heart Sounds: no murmurs Other: Left carotid is 1+. Left brachial 2+. Left radial 2+. The right carotid is 2+. Right brachial 2+. Right radial 1+. Bilateral femorals are 2+. Soft 1/6 carotid bruit on the right noted GI Inspection: normal to inspection Palpation: soft, no hepatosplenomegaly Auscultation: normal bowel sounds Other: Not pulsatile or expansile. No focal tenderness Skin General: no rashes or lesions noted Neuro Cranial Nerves: CN's II-XI intact bilaterally Extrem General: no calf tenderness Psych Affect: normal affect Assessment AND Plan Problems 1. Occlusion and stenosis of bilateral carotid [...] to my office to discuss further issues. The patient is not yet scheduled for orthopedic consultation or intervention. I believe that it is pertinent to more thoroughly evaluate his carotids currently prior to then offered recommendations as to the relative safety of proceeding with orthopedic repair. The patient and his family members have had an opportunity to ask and have questions answered and they are comfortable with this approach. I additionally then took time to encourage the patient to participate in maximization of his medical care. We discussed briefly his cholesterol level and diet and body habitus and exercise and blood pressure. He did make a comment that every day he eats luncheon meats and I suggested to him that he might consider altering that approach and very more toward a vegetarian diet. Questions were answered. I anticipate seeing the patient back to my office subsequent to the further carotid imaging. I appreciate the kind opportunity of assisting with his surgical care. Roger Bhatia M.D., F.A.C.S. Cc: Dr. 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 10/27/17 1810 <Electronically signed by Roger Bhatia MD> Date Roger Bhatia MD Cosigner Signature: Date (if applicable) CC: Yoon Tony BEVEL OPERATOR; Antonio Eubanks MD CAROTID DUPLEX Observed: 10/09/2017 Status: F Source: [place] ULTRASOUND 2:51 PM [facility] REPOSITORY [facility] [address] [place] [id number] Carotid Duplex Ultrasound 09/29/17 1203 MR#: [id number] Acct: [id number] Name: VIDHYA YA Rep #: [id number] : 1940 77 From: Daquan Jones MD Attending Dr: Antonio Eubanks MD Status: REG CLI Ordering Dr: Antonio Eubanks MD Date: 09/29/17 Location: [facility] Sex: M C Admitted: Reason For Study: Carotid stenosis Rt. Velocities/BP Lt. Velocities/BP Prox CCA 103.0/17.0 cm/sec. Prox CCA 76.2/12.9 cm/sec. Mid CCA 120.0/20.5 cm/sec. Mid CCA 72.1/15.2 cm/sec. Dist CCA 111.0/24.6 cm/sec. Dist CCA 74.5/14.7 cm/sec. Prox ICA 223.0/47.1 cm/sec. Prox ECA 3180.0/58.0 cm/sec. Mid ICA 177.0/43.2 cm/sec. Lt. Vert. 75.0/21.1 cm/sec. Dist ICA 96.6/23.7 cm/sec. Rt. ICA/CCA = 1.9. Prox ECA 139.0/18.1 cm/sec. Rt. Vert. 42.8/10.6 cm/sec. Right Extracranial There is heterogeneous, irregular atherosclerotic plaque noted in the right common carotid artery. There is heterogeneous, irregular atherosclerotic plaque noted in the right internal carotid artery. There is heterogeneous, irregular atherosclerotic plaque noted in the right external carotid artery. Antegrade flow is noted in the right vertebral artery. Left Extracranial There is homogeneous, smooth atherosclerotic plaque noted in the left common carotid artery. The left internal carotid artery is occluded. There is heterogeneous, irregular atherosclerotic plaque noted in the left external carotid artery. Antegrade flow is noted in the left vertebral artery. Procedure Carotid Duplex [id number]. Exam performed in department. Interpretation Summary Moderate (50-69%) stenosis right extracranial internal carotid. Left internal carotid artery is occluded. Flow within the vertebral arteries is antegrade bilaterally. Ordering Physician: Antonio Eubanks Referring Physician: Antonio Eubanks Performed By: Clair Rodriguez RVT 10/09/17 1451 Date Daquan Jones MD CC: Yoon Tony BEVEL OPERATOR; Antonio Eubanks MD Date Dictated: 09/29/17 1203 Date Transcribed: 10/09/17 145 Special Delivery Worker: Signed PROTHROMBIN TIME W/INR Collected: 10/05/2017 Status: F Source: [place] 1:26 PM [facility] REPOSITORY TYPE CODE TESTS RESULT OUT OF RANGE REFERENCE UNITS LAB L300.4150 11.7-14.9 SECONDS High PROTIME 22.2 LAB L300.4200 Normal INR 2.0 Performed By: #### L300.3900 #### [facility] [address] [place], [address] ECHOCARDIOGRAM COMPLETE Observed: 09/29/2017 Status: F Source: [place] 5:15 PM [facility] REPOSITORY [facility] [address] [place] [address] Echo Complete 09/29/17 1406 MR#: [id number] Acct: [id number] Name: VIDHYA YA Rep #: [id number] : 1940 77 From: Antonio Eubanks MD Attending Dr: Antonio Eubanks MD Status: REG CLI Ordering Dr: Antonio Eubanks MD Date: 09/29/17 Location: [facility] Sex: M C Admitted: Reason For Study: afib/flutter Procedure This was a 2D Doppler, Color Flow transthoracic echocardiogram. Exam performed in department. Left Ventricle Normal LV size. Left ventricular systolic function is normal. The estimated ejection fraction is 60 %. No regional wall motion abnormalities noted. Right Ventricle Normal RV size. Normal systolic function. Atria The left atrium is moderately enlarged. Normal right atrium. Patent foramen ovale. Mitral Valve Normal mitral valve. Mild (1+) eccentric mitral valve insufficiency. Tricuspid Valve Normal tricuspid valve. Mild to moderate (1-2+) tricuspid valve insufficiency. Pulmonary artery systolic pressure is 42 mmHg. Aortic Valve Normal aortic valve. Trisinus/trileaflet aortic valve. Mild (1+) aortic valve insufficiency. Pulmonic Valve Normal pulmonic valve. Great Vessels Normal aortic root. The pulmonary artery is normal size. Normal inferior vena cava. Pericardium/Pleural No pericardial effusion. MMode/2D Measurements AND Calculations LVIDd: 4.9 cm IVSd: 0.91 cm LVOT diam: 2.0 cm LVIDs: 3.4 cm LVPWd: 0.95 cm LVOT area: 3.0 cm2 RVDd: 4.6 cm FS: 32.3 % Ao root diam: 3.3 cm LAV(MOD-bp): 91.0 ml LA A4 area: 27.9 cm2 LA dimension: 3.9 cm LAV(MOD-bp) Indexed: 44.8 ml/m2 LAV(MOD-sp2): 90.3 ml LAV(MOD-sp4): 87.5 ml RA A4 area: 19.1 cm2 Doppler Measurements AND Calculations Ao V2 max: 191.2 cm/sec AI max sterling: 477.4 cm/sec LV V1 max: 129.6 cm/sec Ao max P.7 mmHg AI max P.2 mmHg LV V1 max P.8 mmHg PEARL(V,D): 2.0 cm2 AI dec slope: 181.1 cm/sec2 AI P1/2t: 772.3 msec TR max sterling: 301.9 cm/sec TR max P.5 mmHg Interpretation Summary Normal LV size. Left ventricular systolic function is normal. The estimated ejection fraction is 60 %. Mild (1+) eccentric mitral valve insufficiency. Pulmonary artery systolic pressure is 42 mmHg. Mild (1+) aortic valve insufficiency. Compared to prior study, there is no significant change. Ordering Physician: Antonio Eubanks Referring Physician: YOON TONY Performed By: Maddie Call, GALINA, RVT 09/29/17 1714 Date Antonio Eubanks MD CC: Yoon Tony BEVEL OPERATOR; Antonio Eubanks MD Date Dictated: 09/29/17 1406 Date Transcribed: 09/29/171713 Special Delivery Worker: Signed CARDIOLOGY VISIT Observed: 09/15/2017 Status: F Source: [place] REPORT 1:30 PM [facility] REPOSITORY [facility] [address] [place] [address] OFFICE VISIT Date of Service: 09/15/17 MR#: [id number] Acct: [id number] Name: VIDHYA YA Rep #: [id number] : 1940 Provider: Antonio Eubanks MD Age/Sex: 77/M Location: [facility] Status: Signed HPI 6 M FU (we moved from 09-01-17): Chief Complaint: Follow-up visit. Details: VIDHYA YA, is a 77 M who presents to [...] to be chronic. He has had no dizziness or diaphoresis no near syncope or syncope. He tells me that he may be needing left knee replacement. You do remember that in 2013 he presented with strokelike symptoms he had an MRI done which demonstrated and confirmed a CVA and a carotid ultrasound demonstrated a totally occluded left internal carotid artery with 50-69% stenosis of the right coronary artery. He has not had any other cardiac symptoms and has remained on anticoagulation. His physical exam today demonstrates clear lung jordan irregular regular heart rate and no pedal edema. Intake Vital Signs09/15/17 Height 5 ft 4 in 09/15/17 Weight: 227 lb 09/15/17 Body Mass Index (BMI) 38.9 09/15/17 Blood Pressure 120/60 Intake Visit Reasons: 6 M FU (we moved from 09-01-17) Accompanied by: Is patient in pain?: No Allergies No Known Allergies Allergy (Verified 09/15/17 13:13) Medications Lisinopril [Zestril] 20 mg PO BID 10/21/13 [History Confirmed 09/15/17] Multivitamins,Therapeutic [Multivitamin] 1 tab PO DAILY 10/21/13 [History Confirmed 09/15/17] warfarin 1 mg tablet 1 [...] 09/15/17] Ejection fraction %: 60 to 64 [facility] Medical History Diabetes mellitus, type II (Chronic) Hyperlipidemia (Chronic) Hypertension (Chronic) Dyspnea on exertion (Chronic) History of stroke (Chronic) 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) Patent foramen ovale (Chronic) Atherosclerotic heart disease of [place] coronary artery without angina pectoris (Chronic) Paroxysmal atrial fibrillation (Chronic) senior care (current) use of anticoagulants (Chronic) Social History Smoking Status: Never smoker ROS Const Const: Negative for body ache, fever(s), chills, night sweats, daytime sleepiness, difficulty sleeping, weight gain, weight loss, increased appetite, poor appetite, anorexia or other ENT ENT: Negative for balance problems, Positive for dizziness (occasional with standing, has carotid artery blockage on left side) Cardio Chest Pain: No Palpitations: Negative for Yes or No Edema: None Muscle aches with walking: None Resp Respiratory: Positive for SOB with activity (COPD); negative for SOB at rest, SOB orthopnea\SOB lying down, Coughing up blood/hemoptysis, chest congestion, pain on inspiration, snoring, stridor, wheezing, crackles, paroxysmal nocturnal dyspnea or other GI GI: Negative nausea, vomiting, heartburn, constipation, belching, bloating, cramping, vomiting blood/hematemesis, bright, red blood in stools, black,tarry stools, loose stools, Difficulty Swallowing or other Musc Musc: Negative for muscle aches/ myalgia, muscle weakness, joint pain or balance problems Neuro Neuro: Positive for dizziness (occasional with standing, has carotid artery blockage on left side) Cardiology Exam Const Appearance: cooperative, healthy appearing, well developed, well groomed and no acute distress Nutritional Appearance: well nourished and average body habitus Orientation: alert, awake and oriented x3 Head Head: normal to inspection, normocephalic and atraumatic Ears: hearing grossly normal bilaterally and external ears normal Nose: external nose normal, nasal mucous membranes and turbinates normal, nares normal, septum normal, no nasal discharge Face and Sinus: face symmetric Mouth: oral mucosae normal, tongue normal, oropharynx normal and moist mucous membranes Teeth and gingiva: dentition normal Throat: posterior oropharynx normal, tonsils normal and uvula midline Eyes General: appearance normal, both eyes and all related structures Eyelids: eyelids normal Conjunctivae: conjunctivae normal Pupils: PERRL, normal by confrontation and accommodation normal EOM: EOM intact bilaterally Neck Neck: normal visual inspection, trachea midline and no JVD JVD: +5 Carotids: normal carotid upstroke and bounding pulses Chest Chest inspection: normal inspection of the chest, symmetric chest movement and normal respiratory effort Auscultation: Bilateral: Clear to Auscultation Cardio Palpation: normal PMI Rate: regular rate Rhythm: irregular rhythm Heart sounds: S1 normal, S2 normal and normal, physiologic split S2; negative rub, gallop or murmur GI GI: normal to inspection, soft, no hepatosplenomegaly and bowel sounds present Neuro General: alert, awake, oriented x3, no focal sensory deficit, gait normal and moves all extremities Skin Skin: no rashes or lesions noted Extremities Pulses: Normal: Right Femoral Pulse, Left Femoral Pulse, Right Dorsalis Pedis Pulse, Left Dorsalis Pedis Pulse, Right Posterior Tibial Pulse, Left Posterior Tibial Pulse, Right Radial Pulse, Left Radial Pulse Lower Extremity Edema: None: Bilateral Musculoskel Musculoskeletal: No joint tenderness Psych Psychological: normal affect Assessment AND Plan 1. Preop cardiovascular exam Z01.810 Plan In terms of his preoperative status he appears to be fairly stable at this time I do not see any obvious contraindications though I would like to further reassess his carotid anatomy. He did have a stress test in 2016 with no evidence of ischemia and I do not think this needs to be repeated. He should continue his anticoagulation and this may need to be held a few days prior to his knee replacement and resumed shortly afterwards. As you know he is at fairly high risk for cerebrovascular event and the duration should be shortened as much as possible. Orders Orders: 2. Essential hypertension I10 Plan His blood pressure is under good control on the current medical therapy with the amlodipine hydrochlorothiazide and lisinopril as well as metoprolol. No changes will be made. 3. Paroxysmal atrial fibrillation I48.0 Plan He does have chronic persistent atrial fibrillation at this time he is anticoagulated with an INR of 2-3. The plan will be for him to continue his metoprolol at the same dosage. An echocardiogram should be performed to assess his left ventricular function. 4. 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 5. Pure hypercholesterolemia E78.00; E78.0 Plan He remains on high intensity statin which will be continued. Routine lipid profile should be obtained. Thank you for allowing me to participate in the care of your patient. Please don't hesitate to call if any issues arise Plan Detail Other Orders Orders: Follow Up 6 Months (mmm) Coding Level of Care Code Off vis,est,level 4 Diagnoses Preop cardiovascular exam Z01.810 Essential hypertension I10 Hypertension type: essential hypertension Paroxysmal atrial fibrillation I48.0 Occlusion and stenosis of bilateral carotid arteries I65.23 Pure hypercholesterolemia E78.00; E78.0 Hyperlipidemia type: pure hypercholesterolemia 09/15/17 1330 <Electronically signed by Antonio Eubanks MD> Date Antonio Eubanks MD Cosigner Signature: Date (if applicable) CC: Yoon Tony NP PROTHROMBIN TIME W/INR Collected: 09/02/2017 Status: F Source: FRANCESCA 2:49 PM [facility] REPOSITORY TYPE CODE TESTS RESULT OUT OF RANGE REFERENCE UNITS LAB L300.4150 11.7-14.9 SECONDS High PROTIME 22.9 LAB L300.4200 Normal INR 2.1 Performed By: #### L300.3900 #### [facility] [address] [place], [place], [address] PROTHROMBIN TIME W/INR Collected: 08/06/2017 Status: F Source: FRANCESCA 9:41 AM [facility] REPOSITORY TYPE CODE TESTS RESULT OUT OF RANGE REFERENCE UNITS LAB L300.4150 11.7-14.9 SECONDS High PROTIME 22.8 LAB L300.4200 Normal INR 2.1 Performed By: #### L300.3900 #### [facility] [address] [place], [address] ALLERGIES ALLERGIES DATE TYPE / CODE NAME / CODE REACTION SEVERITY SOURCE 03/15/2018 Drug No Known Unknown [facility] Allergy/4160 Allergies/F00 Hospital 06296(SNOMED 0774041(RXNOR Repository CT) M) ENCOUNTERS ENCOUNTERS ADMIT/DISCHARGE ACCOUNT ADMITTING ENCOUNTER LOCATION SOURCE NUMBER CLASS 08/02/2018 [id number] Ambulatory [address] ing:LAB Repository 07/19/2018 [id number] Ambulatory Building:[facility] Practices Repository 07/14/2018/ [id number] Emergency [place] 8 9 [facility] ing:ED Repository 07/05/2018/ [id number] Ambulatory Frances[place] 8 3 [facility] ing:LAB Repository 06/04/2018/ [id number] Ambulatory Francesca [place] 8 3 [facility] ing:LAB Repository 05/12/2018/ [id number] Ambulatory [place] Francesca 8 1 [facility] ing:LAB Repository 03/30/2018/ [id number] Ambulatory Francesca Francesca 8 2 [facility] ing:LAB Repository 03/15/2018/ [id number] Ambulatory BMSBuilding:B Francesca [address] [facility] Repository 02/26/2018/ [id number] Ambulatory [place] 8 7 [facility] ing:LAB Repository 01/28/2018/ [id number] Ambulatory [place] 8 7 [facility] ing:LAB Repository 12/30/2017/ [id number] Ambulatory [place] 8 4 [facility] ing:LAB Repository 11/30/2017/ [id number] Ambulatory Frances[place] 8 2 [facility] ing:LAB Repository 11/25/2017/ [id number] Ambulatory BMSBuilding:B Francesca [address] [facility] Repository 11/04/2017 [id number] Ambulatory Francesca Francesca 3 [facility] ing:CT Repository 11/02/2017/ [id number] Ambulatory [place] 8 9 [facility] ing:LAB Repository 10/27/2017/ [id number] Ambulatory BMSBuilding:B Francesca 8 1 [facility] Hospital Repository 10/05/2017/ [id number] Ambulatory [place] Francesca 8 2 [facility] ing:LAB Repository 09/29/2017 [id number] Ambulatory [place] 1 [facility] ing:[facility] Repository 09/29/2017 [id number] Ambulatory BMSBuilding:W Francesca 4 [facility] Repository 09/15/2017/ [id number] Ambulatory BMSBuilding:B [place] 8 6 [facility] Repository 09/02/2017/ [id number] Ambulatory [place] 8 5 [facility] ing:LAB Repository 08/06/2017/ [id number] Ambulatory [place] 7 3 [facility] ing:LAB Repository PAYERS PAYERS ENCOUNTER GUARANTOR PAYER SUBSCRIBER SOURCE 08/02/2018 VIDHYA Cunningham Primary VIDHYA Ma [id number] Insurance:MEDICARE LISTERDOB: Community [address] B[id number] Number: Repository [address]Lct: (022) [id number] [phone] (HP) Date:2017-10-05 08/02/2018 Secondary VIDHYA Ma Insurance:AARPPolicy LISTERDOB: [facility] Number: [id number] Hospital [id number] Repository Date:3883-67-08[address]WEM[place], [place] [address]SC: 08/02/2018 Tertiary ENRIQUE Ma Insurance:SELF PAY [facility] Number: Effective Repository Date:2018-07-19 07/19/2018 Hari Primary Hari OHIP Practices ListerDOB: Insurance:MedicarePol ListerDOB: Repository [id number] Box icy Number: [id number] [address] [id number] [address] [address]Smm: Date:2829-03-85Xidf [place], [place] Name:[employer] [place] [address]Twd: 419 (HP)Tel: (351) 518273A531990Rboxleme, [place] [phone] (IT) [phone] (FC) 265[address]WP: 07/19/2018 Secondary Vidhya ENNIS Practices Insurance:AARP/UHCPol ListerDOB: Repository icy Number: [id number] [address] Date:0536-70-21Qset [place], [place] Name:[address] [address]Gsv: 419 659923Ffhgiqw, [place] [phone] () [id number]: 07/19/2018 Tertiary Vidhya ENNIS Practices Insurance:Medical ListerDOB: Repository [facility] [id number] Number: [address] [id number] [place], [place] Date: - [address]Jml: [phone] [id number] [phone] (HP) Name:[address] [address]Pcy[place]vwsc, [place] [id number]: 07/14/2018 VIDHYA Cunningham Primary VIDHYA [id number] Insurance:MEDICARE LISTERDOB: Community [address] [facility] [id number] Number: Repository [address]Hpp: 419 [id number] [phone] () Date:2018-07-14 07/14/2018 Secondary VIDHYA Ma Insurance:AARPPolicy LISTERDOB: Community Number: [id number] Hospital [id number] Repository Date:2174-45-60YB [address]RZJJLZ[address], [place] [address]QI: 07/14/2018 Tertiary NOT TALA Francesca Insurance:SELF PAY [facility] Number: Effective Repository Date:2018-07-14 07/05/2018 HARI Primary VIDHYA Ma [id number] Insurance:MEDICARE LISTERDOB: Community [address] PART [address] [facility] [id number] Number: Repository [address]Wfn: 419 [id number] [phone] () Date:2017-10-05 07/05/2018 Secondary VIDHYA Ma Insurance:AARPPolicy LISTERDOB: Community Number: [id number] Hospital [id number] Repository Date:0968-54-09XS [facility] 065272[place], [place] [address]AN: 07/05/2018 Tertiary NOT GIVENUNK Francesca Insurance:SELF PAY [facility] Number: Effective Repository Date:2018-06-17 06/04/2018 HARI Primary HARI Francesca [id number] Insurance:MEDICARE LISTERDOB: Community [address] [facility] [id number] [facility] Number: Repository [address]Ajm: [phone]) [id number] [phone] () Date:2017-10-05 06/04/2018 Secondary HARI Francesca Insurance:AARPPolicy LISTERDOB: Community Number: [id number] Hospital [id number] Repository Date:5523-68-54X[address] [address]US: 06/04/2018 Tertiary NOT GIVENUNK [place] Insurance:SELF PAY [facility] Number: Effective Repository Date:2018-05-19 05/12/2018 HARI Primary HARI Francesca [id number] Insurance:MEDICARE LISTERDOB: Community [address] [facility] [id number] [facility] Number: Repository [address]Son: [phone]) [id number] [phone] () Date:2017-10-05 05/12/2018 Secondary HARI [place] Insurance:AARPPolicy LISTERDOB: Community Number: [id number] Hospital [id number] Repository Date:9101-34-55PK[address] [address]JZ: 05/12/2018 Tertiary NOT GIVENUNK Francesca Insurance:SELF PAY [facility] Number: Effective Repository Date:2018-04-20 03/30/2018 HARI Primary VIDHYA Ma [id number] Insurance:MEDICARE LISTERDOB: Community [address] [facility] [id number] Health [facility] Number: Repository [address]Ghp: [phone]) [id number] [phone] (HP) Date:2017-10-05 03/30/2018 Secondary HARI [place] Insurance:AARPPolicy LISTERDOB: Community Number: [id number] Hospital [id number] Repository Date:8037-90-08UF [address]LR[place], [place] [address]BR: 03/30/2018 Tertiary NOT GIVENUNK Francesca Insurance:SELF PAY [facility] Number: Effective Repository Date:2018-03-18 03/15/2018 VIDHYA Cunningham Primary VIDHYA [id number] Insurance:MEDICARE LISTERDOB: Community [address] [facility] [id number] [place] Number: Repository [address]Vdk: (106) [id number] [phone] () Date:2017-09-15 03/15/2018 Secondary IVDHYA [place] Insurance:AARPPolicy LISTERDOB: Community Number: [id number] Hospital [id number] Repository Date:0237-26-57PF [address]PCME, [place] [address]OL: 03/15/2018 Tertiary NOT GIVENUNK Francesca Insurance:SELF PAY [facility] Number: Effective Repository Date:2018-03-15 02/26/2018 VIDHYA Cunningham Primary VIDHYA [id number] Insurance:MEDICARE LISTERDOB: Community [address] [facility] [id number] Number: Repository [address]Eas: [phone]) [id number] [phone] () Date:2017-10-05 02/26/2018 Secondary HARI [place] Insurance:AARPPolicy LISTERDOB: Community Number: [id number] Hospital [id number] Repository Date:3326-98-46CS [address]GLULNKX, [place] [address]ZG: 02/26/2018 Tertiary NOT GIVENUNK Francesca Insurance:SELF PAY [facility] Number: Effective Repository Date:2018-02-12 01/28/2018 VIDHYA Cunningham Primary VIDHYA [id number] Insurance:MEDICARE LISTERDOB: Community [address] [facility] [id number] [facility] [place] Number: Repository [address]Kjd: 419 [id number] [phone] () Date:2017-10-05 01/28/2018 Secondary VIDHYA Ma Insurance:AARPPolicy LISTERDOB: Community Number: [id number] Hospital [id number] Repository Date:4237-92-39[address]MLXDNHP, [place] [address]XI: 01/28/2018 Tertiary NOT GIVENUNK [place] Insurance:SELF PAY [facility] Number: Effective Repository Date:2018-01-14 12/30/2017 HARI Primary HARI [place] [id number] Insurance:MEDICARE LISTERDOB: Community [address] [facility] [id number] Health [facility] Number: Repository [address]Uas: 419 [id number] [phone] () Date:2017-10-05 12/30/2017 Secondary HARI Francesca Insurance:AARPPolicy LISTERDOB: Community Number: [id number] Hospital [id number] Repository Date:4936-94-91ZW [address]IQOKHQX, [place] [address]NZ: 12/30/2017 Tertiary NOT GIVENUNK Francesca Insurance:SELF PAY [facility] Number: Effective Repository Date:2017-12-15 11/30/2017 HARI Primary VIDHYA Ma [id number] Insurance:MEDICARE LISTERDOB: Community [address] [facility] [id number] Health [facility] Number: Repository [address]Wbl: 419 [id number] [phone] () Date:2017-10-05 11/30/2017 Secondary HARI Francesca Insurance:AARPPolicy LISTERDOB: Community Number: [id number] Hospital [id number] Repository Date:0725-13-14[address], [place] [address]MB: 11/30/2017 Tertiary NOT GIVENUNK Farncesca Insurance:SELF PAY [facility] Number: Effective Repository Date:2017-11-16 11/25/2017 HARI Primary VIDHYA Cunningham Francesca [id number] Insurance:MEDICARE LISTERDOB: Community [address] [facility] [id number] Number: Repository [address]Cly: 419 [id number] [phone] (HP) Date:2017-11-06 11/25/2017 Secondary VIDHYA Ma Insurance:AARPPolicy LISTERDOB: Community Number: [id number] Hospital [id number] Repository Date:5945-15-38[address]QMEGIKI, [place] [address]LI: 11/25/2017 Tertiary NOT GIVENUNK Francesca Insurance:SELF PAY [facility] Number: Effective Repository Date:2017-11-06 11/04/2017 HARI Primary HARI Francesca [id number] Insurance:MEDICARE LISTERDOB: Community [address] [facility] [id number] [facility] [place] Number: Repository [address]Vff: 419 [id number] [phone] (HP) Date:2017-10-27 11/04/2017 Secondary VIDHYA Ma Insurance:AARPPolicy LISTERDOB: Community Number: [id number] Hospital [id number] Repository Date:5507-12-24[address]KFYUHSW, [place] [address]VI: 11/04/2017 Tertiary NOT GIVENUNK [place] Insurance:SELF PAY [facility] Number: Effective Repository Date:2017-10-27 11/02/2017 HARI Primary HARI Francesca [id number] Insurance:MEDICARE LISTERDOB: Community [address] [facility] [id number] [place] Number: Repository [address]Rzk: 419 [id number] [phone] (HP) Date:2017-10-05 11/02/2017 Secondary VIDHYA Ma Insurance:AARPPolicy LISTERDOB: Community Number: [id number] Hospital [id number] Repository Date:7895-67-39EV [address]LPIGJUU, [place] [address]YH: 11/02/2017 Tertiary NOT GIVENUNK Francesca Insurance:SELF PAY [facility] Number: Effective Repository Date:2017-10-15 10/27/2017 HARI Primary VIDHYA Ma [id number] Insurance:MEDICARE LISTERDOB: Community [address] [facility] [id number] Number: Repository [address]Mls: 419 [id number] [phone] () Date:2017-10-14 10/27/2017 Secondary HARI [place] Insurance:AARPPolicy LISTERDOB: Community Number: [id number] Hospital [id number] Repository Date:6741-33-39OQ [address]HKPNBQA, [place] [address]HE: 10/27/2017 Tertiary NOT GIVENUNK Francesca Insurance:SELF PAY [facility] Number: Effective Repository Date:2017-10-14 10/05/2017 HARI Primary VIDHYA Ma [id number] Insurance:MEDICARE LISTERDOB: Community [address] [facility] [id number] [place], [place] Number: Repository [address]Naj: 419 [id number] [phone] () Date:2017-10-05 10/05/2017 Secondary HARI [place] Insurance:AARPPolicy LISTERDOB: Community Number: [id number] Hospital [id number] Repository Date:7097-53-93CC [address]MGUOFQQ, [place] [address]RP: 10/05/2017 Tertiary NOT GIVENUNK [place] Insurance:SELF PAY [facility] Number: Effective Repository Date:2017-10-05 09/29/2017 HARI Primary VIDHYA Ma [id number] Insurance:MEDICARE LISTERDOB: Community [address] [facility] [id number] [place], [place] Number: Repository [address]Eod: ([phone]) [id number] [phone] () Date:2017-09-15 09/29/2017 Secondary HARI [place] Insurance:AARPPolicy LISTERDOB: Community Number: [id number] Hospital [id number] Repository Date:6739-78-31QZ [address]AWPCNIK, [place] [address]ML: 09/29/2017 Tertiary NOT GIVENUNK Francesca Insurance:SELF PAY [facility] Number: Effective Repository Date:2017-09-15 09/29/2017 VIDHYA Cunningham Primary VIDHYA [id number] Insurance:MEDICARE LISTERDOB: Community [address] olicy [id number] [place], [place] Number: Repository [id number]: [phone]) [id number] [phone] () Date:2017-09-15 09/29/2017 Secondary VIDHYA Cunningham Francesca Insurance:AARPPolicy LISTERDOB: Community Number: [id number] Hospital [id number] Repository Date:7561-30-76YP [address]BNVYXOW, [place] [address]HL: 09/29/2017 Tertiary NOT GIVENUNK Francesca Insurance:SELF PAY [facility] Number: Effective Repository Date:2017-09-29 09/15/2017 VIDHYA Cunningham Primary VIDHYA [id number] Insurance:MEDICARE LISTERDOB: Community [address] [place] [id number] [place] Number: Repository [address]Kqi: 419 [id number] [phone] () Date:2017-07-22 09/15/2017 Secondary HARI Francesca Insurance:AARPPolicy LISTERDOB: Community Number: [id number] Hospital [id number] Repository Date:5927-80-16GG [address]XABEFHM, [place] [address]RZ: 09/15/2017 Tertiary NOT GIVENUNK Francesca Insurance:SELF PAY [facility] Number: Effective Repository Date:2017-07-22 09/02/2017 Vidhya Cunningham Primary Vidhya [id number] Insurance:MEDICARE ListerDOB: Community [address] [facility] [id number], [place] Number: Repository [address]Ncl: [id number] Date:2007-07-17 () 09/02/2017 Secondary Hari [place] Insurance:AARPPolicy ListerDOB: Community Number: [id number] Hospital [id number] Repository Date:3449-81-90AC [address]TRXFEUO, [place] [address]WT: 09/02/2017 Tertiary NOT GIVENUNK Francesca Insurance:SELF PAY [facility] Number: Effective Repository Date:2017-08-17 08/06/2017 Hari Primary Vidhya Ma [id number] Insurance:MEDICARE ListerDOB: [facility] [place] [address] [place] [id number] Number: Repository [address]Xpf: [id number] Date:2007-07-17 () 08/06/2017 Secondary Hari Francesca Insurance:AARPPolicy ListerDOB: Community Number: [id number] Hospital [id number] Repository Date:9409-81-11[address]FM[address]HFI, [place] [address]CF: 08/06/2017 Tertiary NOT GIVENUNK Francesca Insurance:SELF PAY [facility] Number: Effective Repository Date:2017-07-19
== END 2018-07-14 22:54 | disposition home or self-care (01) ==
PROVIDERS: Emergency Provider Emergency Medicine; Family Provider Nurse Practitioner; PCP Nurse Practitioner
DX: K13.70 Unspecified lesions of oral mucosa (principal); J34.89 Other specified disorders of nose and nasal sinuses; I65.29 Occlusion and stenosis of unspecified carotid artery; Z79.899 Other long term (current) drug therapy
CPT/HCPCS: 99282

== ENCOUNTER 2018-08-02 09:04 | Outpatient (RCR) | payer MEDICARE, OTHER, SELFPAY ==
--- OUTSIDE RECORDS SUMMARY | 2018-11-03 20:38 | XMS RPT_ITS ---
:1940 Author Organization [place] Support Name Relationship Address Phone SERENITY YA Unavailable [address] + [address] [place] [address] VIDHYA YA R Unavailable [address] + [place] [address] R Unavailable Unavailable Unavailable BHAKTI, SERENITY Unavailable [address] + [address] [place] [address] VIDHYA YA R Unavailable [address] + [place] [address] R Unavailable Unavailable Unavailable BHAKTI, SERENITY Unavailable [address] + [address] [place] [address] R Unavailable Unavailable Unavailable BHAKTI, SERENITY Unavailable [address] + [address] [place] [address] R Unavailable Unavailable Unavailable BHAKTI, SERENITY Unavailable [address] + [address] [place] [address] R Unavailable Unavailable Unavailable BHAKTI, SERENITY Unavailable [address] + [address] [place] [address] R Unavailable Unavailable Unavailable BHAKTI, SERENITY Unavailable [address] + [address] [place] [address] R Unavailable Unavailable Unavailable BHAKTI, SERENITY Unavailable [address] + [address] [place] [address] R Unavailable Unavailable Unavailable BHAKTI, SERENITY Unavailable [address] + [address] [place] [address] R Unavailable Unavailable Unavailable BHAKTI, SERENITY Unavailable [address] + [address] [place] [address] R Unavailable Unavailable Unavailable BHAKTI, SERENITY Unavailable [address] + [address] [place] [address] R Unavailable Unavailable Unavailable BHAKTI, SERENITY Unavailable [address] + [address] [place] [address] R Unavailable Unavailable Unavailable BHAKTI, SERENITY Unavailable [address] + [address] [place] [address] R Unavailable Unavailable Unavailable BHAKTI, SERENITY Unavailable [address] + [address] [place] [address] R Unavailable Unavailable Unavailable BHAKTI, SERENITY Unavailable [address] + [address] [place] [address] R Unavailable Unavailable Unavailable BHAKTI, SERENITY Unavailable [address] + [address] [place] [address] R Unavailable Unavailable Unavailable BHAKTI, SERENITY Unavailable [address] + [address] [place] [address] R Unavailable Unavailable Unavailable BHAKTI, SERENITY Unavailable [address] + [address] [place] [address] R Unavailable Unavailable Unavailable BHAKTI, SERENITY Unavailable [address] + [address] [place] [address] R Unavailable Unavailable Unavailable BHAKTI, SERENITY Unavailable [address] + [address] [place] [address] R Unavailable Unavailable Unavailable Care Team Providers Name Role Phone Raimundo, Antonio Attending Unavailable [facility] Referring Unavailable [facility] Primary Care Unavailable Raimundo, Valentine Attending Unavailable Raimundo, Antonio Referring Unavailable [facility] Primary Care Unavailable Raimundo, Antonio Attending Unavailable Raimundo, Antonio Referring Unavailable [facility] Primary Care Unavailable Raimundo, Antonio Attending Unavailable Raimundo, Valentine Referring Unavailable [facility] Primary Care Unavailable Raimundo, Antonio Attending Unavailable Raimundo, Valentine Referring Unavailable [facility] Primary Care Unavailable Roger Bhatia Attending Unavailable Raimundo, Antonio Referring Unavailable [facility] Primary Care Unavailable Roger Bhatia Attending Unavailable Roger Bhatia Referring Unavailable [facility] Primary Care Unavailable Raimundo, Valentine Attending Unavailable Raimundo, Antonio Referring Unavailable Raimundo, Valentine Attending Unavailable Raimundo, Antonio Referring Unavailable Ciesa, Yoon Primary Care Unavailable Roger Bhatia Attending Unavailable Ciesa, Yoon Referring Unavailable Ciesa, Yoon Primary Care Unavailable Ramiundo, Valentine Attending Unavailable Raimundo, Valentine Referring Unavailable Ciesa, Yoon Primary Care Unavailable Raimundo, Valentine Attending Unavailable Raimundo, Valentine Referring Unavailable Ciesa, Yoon Primary Care Unavailable Raimundo, Valentine Attending Unavailable Raimundo, Valentine Referring Unavailable Ciesa, Yoon Primary Care Unavailable Ryan Stroud Attending Unavailable Ciesa, Yoon Referring Unavailable Raimundo, Valentine Attending Unavailable Raimundo, Antonio Referring Unavailable Ciesa, Yoon Primary Care Unavailable Raimundo, Antonio Attending Unavailable Raimundo, Valentine Referring Unavailable Ciesa, Yoon Primary Care Unavailable Raimundo, Antonio Attending Unavailable Raimundo, Valentine Referring Unavailable Ciesa, Yoon Primary Care Unavailable Raimundo, Antonio Attending Unavailable Raimundo, Antonio Referring Unavailable Ciesa, Yoon Primary Care Unavailable Ciesa, Yoon Primary Care Unavailable Pro Gibbs Attending Unavailable Raimundo, Valentine Attending Unavailable Raimundo, Valentine Referring Unavailable Ciesa, Yoon Primary Care Unavailable Ciesa, Yoon Attending Unavailable Ciesa, Yoon Referring Unavailable Ciesa, Yoon Consulting Unavailable NIHARIKA DICKENS Attending Unavailable PROBLEMS PROBLEMS DATE TYPE CONDITION / CODE ATTENDING STATUS SOURCE Active Laceration without [place] [address] foreign body of scalp, [facility] Other initial encounter / [place] S01.01XA(ICD-10) Repository Active Unspecified injury of [place] [address] head, initial encounter / [facility] Other S09.90XA(ICD-10) [place] Repository Unknown I48.0 - Paroxysmal atrial Raimundo, Valentine Active [place] [facility] fibrillation / [facility] I48.0(ICD-10) Hospital Repository Unknown Z79.01 - 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 computer terminal operator Raimundo, Valentine Active [facility] [facility] (current) use of [facility] anticoagulants / Hospital Z79.01(ICD-10) Repository Unknown I48.1 - Persistent atrial Raimundo, Valentine Active [facility] fibrillation / Community I48.1(ICD-10) Hospital Repository Unknown I65.23 - Occlusion and Roger Bhatia Active [place] 8 stenosis of bilateral [facility] carotid arteries / Hospital I65.23(ICD-10) Repository Unknown Z86.73 - Personal history RaimundoOrlin guidoril Active [place] 8 of transient ischemic Community attack (TIA), and Hospital cerebral infarction Repository without residual deficits / Z86.73(ICD-10) Unknown Z01.810 - Encounter for RaimundoOrlin guidoril Active [place] 8 preprocedural [facility] examination / Repository Z01.810(ICD-10) Unknown I10 - Essential (primary) Raimundo, Antonio Active [place] 8 hypertension / Community I10(ICD-10) Hospital Repository Unknown E78.00 - Pure Raimundo, Valentine Active [facility] 8 hypercholesterolemia, Community unspecified / Hospital E78.00(ICD-10) Repository Unknown E78.0 - Pure Raimundo, Antonio Active [place] 8 hypercholesterolemia / Community E78.0(ICD-10) Hospital Repository PROCEDURES PROCEDURES No Procedure Records FoundRESULTS RESULTS PROTHROMBIN TIME W/INR Collected: 08/30/2018 Status: F Source: [place] 9:36 AM [facility] [place] TYPE CODE TESTS RESULT OUT OF RANGE REFERENCE UNITS LAB L300.4150 11.7-14.9 SECONDS High PROTIME 29.4 LAB L300.4200 Normal INR 2.8 Performed By: #### L300.3900 #### [facility] [address] [place], [address] ED PROV NOTE Observed: 08/18/2018 Status: COMPLETED Source: [place] 6:33 PM [facility] REPOSIT[facility] HNO ID: [id number] Author: Niharika Dickens MD Service: Emergency Medicine Author Type: Physician Type: ED Provider Notes Filed: 08/18/2018 8:49 PM Note Text: ED Provider Note Patient Name: Vidhya Ya SERVICE DATE: 08/18/18 History Patient presents with: Laceration Chief complaint of head injury. Patient tripped over the dog and hit his head on a handle for a window. Denies loss of consciousness or vomiting. He is on Coumadin for atrial fibrillation. He is unsure of his last tetanus shot. He is asymptomatic currently. PAST MEDICAL HISTORY Diagnosis Date - Carotid occlusion, left 10/24/2013 - Diabetes (HCC) - Dyslipidemia - Hypertension - Prostate cancer (HCC) 2007 in remission - Stroke (HCC) PAST SURGICAL HISTORY Procedure Laterality Date - CATARACT EXTRACTION HX Bilateral 2013 - PALATOPLASTY - CLEFT PALATE infant - PAST SURGICAL HISTORY OF 2011 Macular degen - PROSTATECTOMY;RADICAL RETROPUBIC 2007 - TOTAL KNEE REPLACEMENT Right 2013 Knee replacement, total FAMILY HISTORY Problem Relation Age of Onset - Alcohol/Drug Father - Stroke Father - Blood Disease Brother - Cancer Brother liver - Prostate Cancer Brother - Diabetes Sister - Heart Mother - Coronary Artery Disease Mother - Hypertension Mother - Hypertension Sister - Hypertension Brother - Ischemic Heart Disease Brother Social History Social History Main Topics - Smoking status: Never Smoker - Smokeless tobacco: Never Used - Alcohol use No - Drug use: No - Sexual activity: No ALLERGIES No Known Allergies Review of Systems Constitutional: Negative for fever. HENT: Negative for ear pain. Eyes: Negative for pain. Respiratory: Negative for shortness of breath. Cardiovascular: Negative for chest pain. Gastrointestinal: Negative for abdominal pain. Genitourinary: Negative for flank pain. Musculoskeletal: Negative for back pain. Skin: Positive for wound. Negative for rash. Neurological: Negative for headaches. Psychiatric/Behavioral: Negative for agitation. Physical Exam BP 188/65 Pulse 95 Temp (Src) 96.2 (Temporal Artery) Resp 16 Ht 5' 9 (1.75m) Wt 215 lb (97.5kg) SpO2 100% BMI 31.74 kg/(m2). Physical Exam Constitutional: He is oriented to person, place, and time. He appears well-developed and well-nourished. HENT: Head: Normocephalic and atraumatic. Eyes: Conjunctivae are normal. Right eye exhibits no discharge. Left eye exhibits no discharge. Neck: Normal range of motion. Cardiovascular: Normal rate. An irregular rhythm present. Pulmonary/Chest: Effort normal and breath sounds normal. Musculoskeletal: Normal range of motion. Neurological: He is alert and oriented to person, place, and time. Skin: Skin is warm and dry. Laceration noted. Psychiatric: He has a normal mood and affect. Diagnostic Testing ED Labs Ordered and Reviewed PROTHROMBIN TIME / PT (AK,AV,EU,FV,HL,YOVANI,MM,SP) - Abnormal; Notable for the following: Result Value Ref Range Prothrombin Time 29.1 (*) 9.7 - 13.0 sec INR 3.04 (*) 0.90 - 1.30 All other components within normal limits LAC REPAIR Date/Time: 08/18/2018 6:33 PM Performed by: NIHARIKA DICKENS Authorized by: NIHARIKA DICKENS Consent: Consent obtained: Verbal Anesthesia (see MAR for exact dosages): Anesthesia method: Local infiltration Local anesthetic: Lidocaine 1% WITH epi Laceration details: Location: Scalp Scalp location: R temporal Length (cm): 8 Repair type: Repair type: Simple Treatment: Irrigation solution: Sterile saline Skin repair: Repair method: Chastity Number of chastity: 11 Approximation: Approximation: Close Post-procedure details: Patient tolerance of procedure: Tolerated well, no immediate complications ED Course / Clinical Impression Clinical Impressions as of Aug 18 2045 Laceration of scalp, initial encounter Closed head injury, initial encounter MDM / Disposition / Plan MDM CAT scan of his head was unremarkable. INR was 3. He was asymptomatic during the ED stay. He is comfortable with being discharged. He'll follow up with his doctor for staple removal. The patient was DISCHARGED: Counseled patient regarding suspected diagnosis AND need for follow-up. Discharged home with verbal and written instructions. They were instructed to return as needed for persistent or worsening symptoms or any new concerns. Condition at time of disposition: stable SIGNATURE: MD Niharika Arauz MD 08/18/182048 CT HEAD W/O CONTRAST Observed: 08/18/2018 Status: F Source: [facility] 5:34 PM [facility] REPOSITORY Performed at [facility] APPROVED BY: Marvin Cano MD EXAMINATION: CT HEAD W/O CONTRAST CLINICAL HISTORY: Status post fall, striking head. Persistence with pain and laceration. TECHNIQUE: Serial axial images without IV contrast were obtained from the vertex to the foramen magnum. MQ: CTBWO_3 CT Dose-Length Product (DLP): 883 mGy*cm CT Dose Reduction Employed: No dose reduction techniques were required. COMPARISON: None. RESULT: Post-operative change: None. Acute change: No evidence of an acute infarct or other acute parenchymal process. Hemorrhage: No evidence of acute intracranial hemorrhage. Mass Lesion / Mass Effect: There is no evidence of an intracranial mass or extraaxial fluid collection. No significant mass effect. Chronic change: Scattered patchy foci of low attenuation are present within supratentorial white matter which is a nonspecific finding but likely represents mild microvascular ischemia. Parenchyma: There is mild generalized volume loss. The brain parenchyma is otherwise within normal limits for age. Ventricles: Ventricular enlargement concordant with the degree of parenchymal volume loss. Paranasal sinuses and skull base: The visualized paranasal sinuses are grossly clear. The skull base and imaged soft tissues are unremarkable. IMPRESSION: No acute intracranial abnormality. Atrophy and chronic ischemic change. ED NOTE Observed: 08/18/2018 Status: COMPLETED Source: [place] 5:21 PM [facility] REPOSITORY HNO ID: [id number] Author: Daksha (Rn) MATILDE Man Service: Emergency Medicine Author Type: Registered Nurse Type: ED Notes Filed: 08/18/2018 5:22 PM Note Text: Labs were drawn and sent. PROTIME Collected: 08/18/2018 Status: F Source: [facility] 5:21 PM HEALTH SYSTEM REPOSITORY TYPE CODE TESTS RESULT OUT OF REFERENCE UNITS RANGE LAB LPTI(LOINC 9.7-13.0 sec ) Prothrombin High Time 29.1 Result Comment: . LAB LINR(LOINC) 0.90-1.30 High 3.04 INR Result Comment: Note: Reference Range Change Vitamin K Antagonist (VKA) Therapeutic Range: INR 2 to 3 (Target INR of 2.5) Note: For patients treated with VKA drugs, such as warfarin, the [place] [employer] 2012 Guideline recommends a therapeutic INR range of 2 to 3 (target INR of 2.5). This recommendation includes high-risk patients with antiphospholipid syndrome with previous arterial or venous thromboembolism, current-generation mechanical or bioprosthetic aortic heart valve replacement. VKA Therapeutic Range for some Mechanical Valve Replacement: INR 2.5 to 3.5 (Target INR of 3) Note: Patients with mechanical aortic valve replacement and additional risk factors for thromboembolic events (atrial fibrillation, previous thromboembolism, LV dysfunction, hypercoagulable conditions) or an older generation mechanical AVR (i.e., ball in-Cage) or any mechanical MVR should have a INR therapeutic range of 2.5 to 3.5 target INR of 3). Jasmyn GH, et al. Chest 2012; 141:7S-47S Mann RA, et al. JAC 2017; 70: 252-289 Performed By: #### LPT #### [facility] [address] [address] ED NOTE Observed: 08/18/2018 Status: COMPLETED Source: [place] 4:56 PM [facility] [place] REPOSITORY HNO ID: [id number] Author: Daksha (Rn) MATILDE Man Service: Emergency Medicine Author Type: Registered Nurse Type: ED Notes Filed: 08/18/2018 4:57 PM Note Text: Pt chasing after dog today when hit head on knob on window. 5cm x 3 cm laceration to top of head, right lateral side. Pt denies FERNÁNDEZ, vision errors or pain. Bleeding controlled at this time PROTHROMBIN TIME W/INR Collected: 08/02/2018 Status: F Source: [place] 9:20 AM [facility] [place] TYPE CODE TESTS RESULT OUT OF RANGE REFERENCE UNITS LAB L300.4150 11.7-14.9 SECONDS High PROTIME 23.0 LAB L300.4200 Normal INR 2.0 Performed By: #### L300.3900 #### [facility] [address] [place], [address] EMERGENCY DEPARTMENT Observed: 07/14/2018 Status: F Source: [place] SUMMARY 11:02 PM [facility] [place] [facility] Medical Records Department [address] [place] [address] Emergency Department Summary 07/14/18 2248 MR#: [id number] Acct: [id number] Name: VIDHYA YA Rep #: [id number] : 1940 77 From: Pro Gibbs MD [...] palate lesion This note was generated with EARTHNET dictation software. It may contain incorrect words, spelling, and punctuation that were not noted in review of the chart prior to signing ED Disposition - Plan for ED Patient: Chief Complaint: Cold Sx Referrals: Yoon Tony, BAKELITE MOLDER-C [Primary Care Provider] - What to do if you have Problems For any increased pain, shortness of breath, bleeding, nausea or vomiting, chest pain, or any unexpected problems, contact your Primary Care Provider. Call [facility] ([phone]) or report to the closest Emergency Room. Call 911 if necessary. 07/14/18 0700 <Electronically signed by Pro Gibbs MD> Date Pro Gibbs MD Cosigner Signature (If Indicated): Date CC: Yoon Tony NP DISCHARGE INSTRUCTION Observed: 07/14/2018 Status: F Source: [place] 11:02 PM [facility] [place] [facility] Medical Records Department [address] [place] [address] Discharge Instruction 07/14/18 2249 MR#: [id number] Acct: [id number] Name: VIDHYA YA Rep #: [id number] : 1940 77 From: Pro Gibbs MD PCP: Yoon Tony NP Status: DEP ER ED Disposition - Plan for ED Patient: Disposition: Home or Assisted Living Chief Complaint: Cold Sx Instructions: ED Blank Diagnosis Form Referrals: Yoon Tony, WILLIAN-C [Primary Care Provider] - Gregorio Yanes MD [STAFF PHYSICIAN] - Additional Instructions: Have a cyst on your hard palate. Follow-up with the ENT physician What to do if you have Problems For any increased pain, shortness of breath, bleeding, nausea or vomiting, chest pain, or any unexpected problems, contact your Primary Care Provider. Call [facility] ([phone]) or report to the closest Emergency Room. Call 911 if necessary. 07/14/182 <Electronically signed by Pro Gibbs MD> Date Pro Gibbs MD Cosigner Signature (If Indicated): Date CC: Yoon Tony NP PROTHROMBIN TIME W/INR Collected: 07/05/2018 Status: F Source: [place] 2:08 PM [facility] [place] TYPE CODE TESTS RESULT OUT OF RANGE REFERENCE UNITS LAB L300.4150 11.7-14.9 SECONDS High PROTIME 25.3 LAB L300.4200 Normal INR 2.3 Performed By: #### L300.3900 #### [facility] [place], [address] PROTHROMBIN TIME W/INR Collected: 06/04/2018 Status: F Source: [place] 1:41 PM [facility] [place] TYPE CODE TESTS RESULT OUT OF RANGE REFERENCE UNITS LAB L300.4150 11.7-14.9 SECONDS High PROTIME 29.5 LAB L300.4200 Normal INR 2.8 Performed By: #### L300.3900 #### [facility] [address] [place], [address] PROTHROMBIN TIME W/INR Collected: 05/21/2018 Status: F Source: [place] 12:47 PM [facility] [place] TYPE CODE TESTS RESULT OUT OF RANGE REFERENCE UNITS LAB L300.4150 11.7-14.9 SECONDS High PROTIME 28.8 LAB L300.4200 Normal INR 2.7 Performed By: #### L300.3900 #### [facility] [address] [place], [address] PROTHROMBIN TIME W/INR Collected: 05/12/2018 Status: F Source: [place] 1:42 PM [facility] [place] Order Comment: Comments: STANDING ORDER Comments: STANDING ORDER TYPE CODE TESTS RESULT OUT OF RANGE REFERENCE UNITS LAB L300.4150 11.7-14.9 SECONDS High PROTIME 20.9 LAB L300.4200 Normal INR 1.8 Performed By: #### L300.3900 #### [facility] [address] [place], [address] PROTHROMBIN TIME W/INR Collected: 04/29/2018 Status: F Source: [place] 1:31 PM [facility] [place] TYPE CODE TESTS RESULT OUT OF RANGE REFERENCE UNITS LAB L300.4150 11.7-14.9 SECONDS High PROTIME 22.0 LAB L300.4200 Normal INR 1.9 Performed By: #### L300.3900 #### [facility] [address] [place], [address] PROTHROMBIN TIME W/INR Collected: 03/30/2018 Status: F Source: [place] 11:14 AM [facility] [place] TYPE CODE TESTS RESULT OUT OF RANGE REFERENCE UNITS LAB L300.4150 11.7-14.9 SECONDS High PROTIME 27.1 LAB L300.4200 Normal INR 2.5 Performed By: #### L300.3900 #### [facility] [address] [place], [address] CARDIOLOGY VISIT Observed: 03/17/2018 Status: F Source: [place] REPORT 4:34 PM [facility] [place] [facility] [address] [place] [address] OFFICE VISIT Date of Service: 03/15/18 MR#: [id number] Acct: [id number] Name: VIDHYA YA Rep #: [id number] : 1940 Provider: WILLIAN Stroud Age/Sex: 77/M Location[place] [facility] [place] Status: Signed HPI HPI Details: VIDHYA [...] brachial Intake Visit Reasons: 6 M FU Key Punch Teacher Required: No Accompanied by: Is patient in [...] foramen ovale (Chronic) Atherosclerotic heart disease of [place] coronary artery without angina pectoris (Chronic) Paroxysmal atrial fibrillation (Chronic) remote computer terminal operator (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 2. Atherosclerosis of [place] coronary artery of [place] heart without angina pectoris I25.10 [facility] - ALEX Tyson Patient's heart catheterization in [...] continue to monitor. 3. Essential hypertension I10 [facility] - ALEX Tyson Patient blood pressure initially was elevated. Upon recheck it normalized. He will continue current medications and we will continue to monitor. 4. Pure hypercholesterolemia E78.00 [facility] - ALEX Tyson He will continue with current high-dose statin medication. 5. remote computer terminal operator (current) use of anticoagulants Z79.01 Plan - [...] prior to saving. Follow Up 6 Months (RETREADER) Coding Level of Care Code Off vis,est,level 3 Diagnoses Persistent atrial fibrillation I48.1 Atrial fibrillation type: persistent Atherosclerosis of [place] coronary artery of [place] heart without angina pectoris I25.10 [place] vs. transplanted heart: [place] heart Essential hypertension I10 Hypertension type: essential hypertension Pure hypercholesterolemia E78.00 Hyperlipidemia type: pure hypercholesterolemia 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 Z79.01 Coding Level of Care Code Off vis,est,level 3 Diagnoses Persistent atrial fibrillation I48.1 Atrial fibrillation type: persistent Atherosclerosis of [place] coronary artery of [place] heart without angina pectoris I25.10 [place] vs. transplanted heart: [place] heart Essential hypertension I10 Hypertension type: essential hypertension Pure hypercholesterolemia E78.00 Hyperlipidemia type: pure hypercholesterolemia remote computer terminal operator (current) use of anticoagulants Z79.01 03/15/18 1553 <Electronically signed by Ryan Stroud BAKELITE MOLDER-C> Date Ryan Stroud BAKELITE MOLDER-C 03/17/18 1634<Electronically signed by Antonio Eubanks MD> Cosigner Signature: Date (if applicable) Antonio Eubanks MD CC: Yoon Tony NP PROTHROMBIN TIME W/INR Collected: 02/26/2018 Status: F Source: [place] 12:04 PM [facility] [place] TYPE CODE TESTS RESULT OUT OF RANGE REFERENCE UNITS LAB L300.4150 11.7-14.9 SECONDS High PROTIME 26.5 LAB L300.4200 Normal INR 2.4 Performed By: #### L300.3900 #### [facility] [address] [place], [place], [id number] PROTHROMBIN TIME W/INR Collected: 01/28/2018 Status: F Source: [place] 10:13 AM [facility] [place] TYPE CODE TESTS RESULT OUT OF RANGE REFERENCE UNITS LAB L300.4150 11.7-14.9 SECONDS High PROTIME 22.9 LAB L300.4200 Normal INR 2.0 Performed By: #### L300.3900 #### [facility] [address] [place], [place], [address] PROTHROMBIN TIME W/INR Collected: 12/30/2017 Status: F Source: [place] 12:03 PM [facility] [place] TYPE CODE TESTS RESULT OUT OF RANGE REFERENCE UNITS LAB L300.4150 11.7-14.9 SECONDS High PROTIME 25.7 LAB L300.4200 Normal INR 2.3 Performed By: #### L300.3900 #### [facility] [address] [place], [address] PROTHROMBIN TIME W/INR Collected: 11/30/2017 Status: F Source: [place] 2:06 PM [facility] [place] TYPE CODE TESTS RESULT OUT OF RANGE REFERENCE UNITS LAB L300.4150 11.7-14.9 SECONDS High PROTIME 24.3 LAB L300.4200 Normal INR 2.2 Performed By: #### L300.3900 #### [facility] [address] [place], [address] SURGERY VISIT REPORT Observed: 11/25/2017 Status: F Source: [place] 4:45 PM [facility] [place] [facility] [address] [place] [address] OFFICE VISIT Date of Service: 11/25/17 MR#: [id number] Acct: [id number] Name: VIDHYA YA J Rep #: [id number] : 1940 Provider: Roger Bhatia MD Age/Sex: 77/M Location: [facility] Status: Signed Intake Intake Visit Reasons: Discuss CTA results Chief Complaint: CTA results--discuss surgery Key Punch Teacher Required: No Is patient in pain?: No [...] #180 tab 11/13/17 [Rx Confirmed 11/25/17] [facility] Medical History Diabetes mellitus, type II (Chronic) Hyperlipidemia (Chronic) Hypertension (Chronic) Dyspnea on exertion (Chronic) History of stroke (Chronic) 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) Patent foramen ovale (Chronic) Atherosclerotic heart disease of [place] coronary artery without angina pectoris (Chronic) Paroxysmal atrial fibrillation (Chronic) 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 On September 29, 2017 at the [facility] carotid duplex imaging was obtained. Peak systolic velocity within the right internal carotid was 223 cm per sec with end-diastolic flow 47. This was felt to be consistent with 50-69% stenosis of the right internal carotid. The patient was noted to have an occluded left internal carotid. At my request we proceeded with CTA of the carotids. On November 04, 2017 at the [facility] CTA of the carotids were obtained. This demonstrated moderate narrowing of the right carotid bulb. This was not felt to be hemodynamically significant. The patient was noted to have occlusion of the origin of the left internal carotid with subsequent reconstitution via collaterals. Assessment AND Plan 1. 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 I have her viewed the [...] clinical progress. Cc: Dr. Antonio Eubanks and WILLINA Babcock M.D., F.A.C.S. 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 11/25/17 1645 <Electronically signed by Roger Bhatia MD> Date Roger Bhatia MD Cosigner Signature: Date (if applicable) CC: Yoon Tony BAKELITE MOLDER; Antonio Eubanks MD CREATININE FINGERSTICK Collected: 11/04/2017 Status: F Source: [place] 3:40 PM [facility] [place] TYPE CODE TESTS RESULT OUT OF RANGE REFERENCE UNITS LAB L9100.0210 0.70-1.30 mg/dL Normal CREATININE WB 1.0 LAB L9100.0220 >60 mL/min EGFR WB Normal > 60.0000 Performed By: #### L9100.0200 #### [facility] Point of Care [facility], [place] [address] CTA NECK W/WO Observed: 11/04/2017 Status: F Source: [place] CONTRAST 3:32 PM [facility] REPOSITORY [facility] Imaging Services [address] [place] [address] CTA Neck W/WO Contrast MR#: [id number] Acct: [id number] Name: VIDHYA YA Rep #: [id number] : 1940 M 77 From: Arcadio Landin MD PCP: Yoon Tony NP Status: REG CLI Study: CTA Neck W/WO Contrast Date of Exam: 11/04/17 Exam# [id number] Ordering Dr: Roger Bhatia MD CTA of [...] CC: Yoon Tony NP; Roger Bhatia MD Cad Administrator: Signed PROTHROMBIN TIME W/INR Collected: 11/02/2017 Status: F Source: [place] 9:[facility] AM [facility] TYPE CODE TESTS RESULT OUT OF RANGE REFERENCE UNITS LAB L300.4150 11.7-14.9 SECONDS High PROTIME 25.8 LAB L300.4200 Normal INR 2.3 Performed By: #### L300.3900 #### [facility] [address] [place], [address] SURGERY VISIT REPORT Observed: 10/27/2017 Status: F Source: [place] 6:10 PM [facility] [place] [address] [facility] [facility] [address] [place] [address] OFFICE VISIT Date of Service: 10/27/17 MR#: [id number] Acct: [id number] Name: VIDHYA YA Rep #: [id number] : 1940 Provider: Roger Bhatia MD Age/Sex: 77/M Location: [facility] Status: Signed Intake Vital Signs10/27/17 Height 5 ft 4 in 10/27/17 Weight: 218 lb 2 oz Intake Visit Reasons: CAROTID STENOSIS Chief Complaint: CAROTID STENOSIS Key 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 At the [facility] on September 29, 2017 carotid duplex imaging [...] No tremor(s), No weakness, Yes other (CVA 2012) Exam Const General: cooperative, comfortable, healthy appearing, no acute distress Nutritional Appearance: overweight Orientation: alert, awake HENTN Head: normal to inspection Ears: other (Hearing [...] Signature: Date (if applicable) CC: Yoon Tony BAKELITE MOLDER; Antonio Eubanks MD CAROTID DUPLEX Observed: 10/09/2017 Status: F Source: [place] ULTRASOUND 2:51 PM [facility] [place] [facility] Cardiovascular Services [address] [place] [address] Carotid Duplex Ultrasound 09/29/17 1203 MR#: [id number] Acct: [id number] Name: VIDHYA YA Rep #: [id number] : 1940 77 From: Daquan Jones MD Attending Dr: Antonio Eubanks MD Status: REG CLI Ordering Dr: Antonio Eubanks MD Date: 09/29/17 Location: [facility] Sex: M [...] the left vertebral artery. Procedure Carotid Duplex 70451. Exam performed in department. Interpretation Summary Moderate (50-69%) stenosis right extracranial internal carotid. Left internal carotid artery is occluded. Flow within the vertebral arteries is antegrade bilaterally. Ordering Physician: Antonio Eubanks Referring Physician: Antonio Eubanks Performed By: Clair Rodriguez RVT 10/09/17 1451 Date Daquan Jones MD CC: Yoon Tony BAKELITE MOLDER; Antonio Eubanks MD Date Dictated: 09/29/17 1203 Date Transcribed: 10/09/17 1451 Cad Administrator: Signed PROTHROMBIN TIME W/INR Collected: 10/05/2017 Status: F Source: [place] 1:26 PM [facility] [place] TYPE CODE TESTS RESULT OUT OF RANGE REFERENCE UNITS LAB L300.4150 11.7-14.9 SECONDS High PROTIME 22.2 LAB L300.4200 Normal INR 2.0 Performed By: #### L300.3900 #### [facility] [address] [place], [address] ECHOCARDIOGRAM COMPLETE Observed: 09/29/2017 Status: F Source: [place] 5:15 PM [facility] [facility] Cardiovascular Services [address] [place] [address] Echo Complete 09/29/17 1406 MR#: [id number] Acct: [id number] Name: VIDHYA YA Rep #: [id number] : 1940 77 From: Antonio Eubanks MD Attending Dr: Antonio Eubanks MD Status: REG CLI Ordering Dr: Antonio Eubanks MD Date: 09/29/17 Location: [facility] Sex: M C Admitted: Reason For [...] Physician: YOON TONY Performed By: Maddie Call, RDCS, RVT 09/29/17 1714 Date Antonio Eubanks MD CC: Yoon Tony BAKELITE MOLDER; Antonio Eubanks MD Date Dictated: 09/29/17 1406 Date Transcribed: 09/29/171713 Cad Administrator: Signed CARDIOLOGY VISIT Observed: 09/15/2017 Status: F Source: [place] REPORT 1:30 PM [facility] [place] [facility] 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) Patent foramen ovale (Chronic) Atherosclerotic heart disease of [place] coronary artery without angina pectoris (Chronic) Paroxysmal atrial fibrillation (Chronic) 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 (Chronic) Social History [...] Date (if applicable) CC: Yoon Tony NP ALLERGIES ALLERGIES DATE TYPE / CODE NAME / CODE REACTION SEVERITY SOURCE 03/15/2018 Drug No Known Unknown [facility] Allergy/416 Allergies/B41168 Hospital 801158(SNOM 0388(RXNORM) Repository ED CT) Drug NO KNOWN [facility] Class/63410 ALLERGIES Other [place] 1003(SNOMED Repository CT) ENCOUNTERS ENCOUNTERS ADMIT/DISCHARGE ACCOUNT ADMITTING ENCOUNTER LOCATION SOURCE NUMBER CLASS 08/30/2018 [id number] [facility] ing:LAB Repository 08/24/2018 [id number] Ambulatory Building:[facility] OHIP Practices Repository 08/18/2018/08/18/19 [id number] Emergency [address] Other [place] Repository 08/02/2018/08/02/[id number] ing:LAB Repository 07/14/2018/07/14/20 [id number] Emergency [address] ing:ED Repository 07/05/2018/07/16/20 [id number] Ambulatory [address] ing:LAB Repository 06/04/2018/06/04/[id number] ing:LAB Repository 05/12/2018/05/12/20 [id number] Ambulatory [address] ing:LAB Repository 03/30/2018/03/30/[id number] ing:LAB Repository 03/15/2018/03/15/20 [id number] Ambulatory BMSBuilding:[facility] Hospital Repository 02/26/2018/02/27/20 [id number] Ambulatory [address] Hospital ing:LAB Repository 01/28/2018/01/29/20 [id number] [facility] [address] [facility] ing[facility]LAB Repository 12/30/2017/12/31/19 [id number] Ambulatory [address] [facility] ing:LAB Repository 11/30/2017/12/01/19 [id number] Ambulatory [address] [facility] ing:LAB Repository 11/25/2017/11/26/19 [id number] Ambulatory BMSBuilding:[facility] Repository 11/04/2017 [id number] Ambulatory [facility] Hospital ing:CT Repository 11/02/2017/11/03/19 [id number] Ambulatory [address] [facility] ing:LAB Repository 10/27/2017/10/28/19 [id number] Ambulatory BMSBuilding:B [place] [address] Repository 10/05/2017/10/05/19 [id number] Ambulatory [address] [facility] Hospital ing:LAB Repository 09/29/2017 [id number] Ambulatory [facility] Hospital ing:[facility] Repository 09/29/2017 [id number] Ambulatory BMSBuilding:W [facility] Repository 09/15/2017/09/15/19 [id number] Ambulatory BMSBuilding:B [place] [address] [facility] Repository PAYERS PAYERS ENCOUNTER GUARANTOR PAYER SUBSCRIBER SOURCE 08/30/2018 VIDHYA Cunningham Primary VIDHYA [id number] Insurance:MEDICARE LISTERDOB: [address] PART A BPolic [id number] Number: Repository [address]Ncy: (807) [id number] [phone] () Date:2017-10-05 08/30/2018 Secondary VIDHYA Ma Insurance:AARPPolicy LISTERDOB: Community Number: [id number] [facility] [id number] Repository Date:0882-81-48[address], [place] [address]ZO: 08/30/2018 Tertiary NOT GIVENUNK [facility] Insurance:SELF PAY [facility] Number: Effective Repository Date:2018-08-16 08/24/2018 Hari Primary Hari OHIP Practices ListerDOB: Insurance:MedicarePol ListerDOB: Repository [id number] Box icy Number: [id number] [address] [place], [place]89Jlhkgsyxm [address] [place] [address]Rzv: Date:4741-08-72Kyhu [place], [place] Name:MOLECULAR BIOLOGY SCIENTIST [address]Klc: (419) (HP)Tel: ([phone]) [phone], [place] [phone] (EB) [phone] () 469[address]WP: 08/24/2018 Secondary H[place] Practices Insurance:AARP/UHCPol ListerDOB: Repository icy Number: [id number] [address] Date:8121-95-44Gccb [place], [place] Name:[address] [address]Wah: 419 343265Dnlgosf, [place] [phone] (MG) [id number]: 08/24/2018 Tertiary [place] Practices Insurance:Medical ListerDOB: Repository [facility] [id number] Number: [address] [id number] [place], [place] Date: - [address]Hsu: 419 [id number] [phone] (HP) Name:[address] [address]Bpbrskthi, [place] [address]QI: 08/02/2018 VIDHYA Cunningham Primary VIDHYA [id number] Insurance:MEDICARE LISTERDOB: Community [address] PART A [facility] [id number], [place] Number: Repository [address]Vce: 419 [id number] [phone] (HP) Date:2017-10-05 08/02/2018 Secondary HARI Francesca Insurance:AARPPolicy ALVAROB: Community Number: [id number] Hospital [id number] Repository Date:0271-15-49LS [address], [place] [address]VK: 08/02/2018 Tertiary NOT GIVENUNK [place] Insurance:SELF PAY [facility] Number: Effective Repository Date:2018-07-19 07/14/2018 HARI Primary VIDHYA Ma [id number] Insurance:MEDICARE LISTERDOB: Community [address] PART [address] [facility] [id number], [place] Number: Repository [address]Wsl: 419 [id number] [phone] () Date:2018-07-14 07/14/2018 Secondary HRAI Francesca Insurance:AARPPaniyah JOHNB: Community Number: [id number] Hospital [id number] Repository Date:5089-47-76[address]LGZAQWL, [place] [address]AY: 07/14/2018 Tertiary NOT GIVENUNK [facility] Insurance:SELF PAY [facility] Number: Effective Repository Date:2018-07-14 07/05/2018 HARI Primary VIDHYA Ma [id number] Insurance:MEDICARE LISTERDOB: Community [facility] [address] PART A [facility] [id number], [place] Number: Repository [address]Nqx: 419 [id number] [phone] (HP) Date:2017-10-05 07/05/2018 Secondary HARI [facility] Insurance:AARPPolicy BHAKTIDOB: Community Number: [id number] Hospital [id number] Repository Date:1108-82-12NU [address], [place] [address]PL: 07/05/2018 Tertiary NOT GIVENUNK Francesca Insurance:SELF PAY [facility] Number: Effective Repository Date:2018-06-17 06/04/2018 HARI Primary VIDHYA Ma [id number] Insurance:MEDICARE LISTERDOB: Community [address] PART [address] [facility] [id number], [place] Number: Repository [address]Lvz: 419 [id number] [phone] (HP) Date:2017-10-05 06/04/2018 Secondary HARI [facility] Insurance:AARPPolicy LISTERDOB: Community Number: [id number] Hospital [id number] Repository Date:7779-89-23PV [address], [place] [address]PX: 06/04/2018 Tertiary NOT GIVENUNK [facility] Insurance:SELF PAY [facility] Number: Effective Repository Date:2018-05-19 05/12/2018 HARI Primary VIDHYA Ma [id number] Insurance:MEDICARE LISTERDOB: Community [address] PART A [facility] [id number] [place] Number: Repository [address]Cni: 419 [id number] [phone] () Date:2017-10-05 05/12/2018 Secondary HARI Francesca Insurance:AARPPolicy LISTERDOB: Community Number: [id number] Hospital [id number] Repository Date:7472-45-48RZ [address]FLF, [place] [address]GP: 05/12/2018 Tertiary NOT GIVENUNK Frances[place] Insurance:SELF PAY [facility] Number: Effective Repository Date:2018-04-20 03/30/2018 HARI Primary VIDHYA Ma [id number] Insurance:MEDICARE LISTERDOB: Community [address] PART A [facility] [id number], [place] Number: Repository [address]Eqp: 419 [id number] [phone] () Date:2017-10-05 03/30/2018 Secondary HARI [facility] Insurance:AARPPolicy LISTERDOB: Community Number: [id number] Hospital [id number] Repository Date:1935-52-[address] [address]AI: 03/30/2018 Tertiary NOT GIVENUNK Frances[place] Insurance:SELF PAY [facility] Number: Effective Repository Date:2018-03-18 03/15/2018 VIDHYA Cunningham Primary HARI Francesca [id number] Insurance:MEDICARE LISTERDOB: Community [address] PART A [facility] [id number] [facility] Number: Repository [address]Mnl: [phone] [id number] [phone] () Date:2017-09-15 03/15/2018 Secondary HARI Francesca Insurance:AARPPolicy LISTERDOB: Community Number: [id number] Hospital [id number] Repository Date:2234-94-66XL [address]XWYTLPV, [place] [address]WA: 03/15/2018 Tertiary NOT GIVENUNK Frances[place] Insurance:SELF PAY [facility] Number: Effective Repository Date:2018-03-15 02/26/2018 VIDHYA Cunningham Primary HARI Francesca [id number] Insurance:MEDICARE LISTERDOB: Community [address] PART A [facility] [id number] Valley Hospital[place] Number: Repository [address]Ytd: [phone] [id number] [phone] () Date:2017-10-05 02/26/2018 Secondary HARI Francesca Insurance:AARPPolicy LISTERDOB: Community Number: [id number] Hospital [id number] Repository Date:8562-97-50NW [address]DPQCSPS, [place] [address]PG: 02/26/2018 Tertiary NOT GIVENUNK Frances[place] Insurance:SELF PAY [facility] Number: Effective Repository Date:2018-02-12 01/28/2018 HARI Primary VIDHYA Ma [id number] Insurance:MEDICARE LISTERDOB: Community [address] [facility] [id number] Valley [facility] Number: Repository [address]Agz: ([phone] [id number] [phone] () Date:2017-10-05 01/28/2018 Secondary HARI Francesca Insurance:AARPPolicy LISTERDOB: Community Number: [id number] Hospital [id number] Repository Date:5223-01-26SC [address]PDZ[address], [place] [address]UE: 01/28/2018 Tertiary NOT GIVENUNK Frances[place] Insurance:SELF PAY [facility] Number: Effective Repository Date:2018-01-14 12/30/2017 VIDHYA Cunningham Primary VIDHYA [id number] Insurance:MEDICARE LISTERDOB: Community [address] PART [address] [facility] [id number], [place] Number: Repository [address]Vtb: [phone]) [id number] [phone] () Date:2017-10-05 12/30/2017 Secondary VIDHYA Cunningham Francesca Insurance:AARPPolicy LISTERDOB: Community Number: [id number] Hospital [id number] Repository Date:6431-99-79QW [address]NKMAI, [place] [address]HE: 12/30/2017 Tertiary NOT GIVENUNK [facility] Insurance:SELF PAY [facility] Number: Effective Repository Date:2017-12-15 11/30/2017 VIDHYA Cunningham Primary VIDHYA [id number] Insurance:MEDICARE LISTERDOB: Community [address] [facility] [id number], [place] Number: Repository [address]Qqw: [phone]) [id number] [phone] () Date:2017-10-05 11/30/2017 Secondary HARI Francesca Insurance:AARPPolicy LISTERDOB: Community Number: [id number] Hospital [id number] Repository Date:5539-44-04IS [address]XHSLWFY, [place] [address]SS: 11/30/2017 Tertiary NOT GIVENUNK [facility] Insurance:SELF PAY Community [facility] Number: Effective Repository Date:2017-11-16 11/25/2017 VIDHYA Cunningham Primary VIDHYA [id number] Insurance:MEDICARE LISTERDOB: Community [address] [facility] [id number] Valley Hospital[place] Number: Repository [address]Uii: [phone]) [id number] [phone] () Date:2017-11-06 11/25/2017 Secondary VIDHYA Ma Insurance:AARPPolicy LISTERDOB: Community Number: [id number] Hospital [id number] Repository Date:5191-82-84XE [address]QAXM[place]K, [place] [address]IJ: 11/25/2017 Tertiary NOT GIVENUNK [facility] Insurance:SELF PAY [facility] Number: Effective Repository Date:2017-11-06 11/04/2017 HARI Primary HARI Francesca [id number] Insurance:MEDICARE LISTERDOB: Community [address] [facility] [id number] Valley Hospital[place] Number: Repository [address]Npe: 419 [id number] [phone] () Date:2017-10-27 11/04/2017 Secondary HARI [facility] Insurance:AARPPolicy BHAKTIDOB: Community Number: [id number] Hospital [id number] Repository Date:3493-25-52[address]FSWEQWV, [place] [address]MB: 11/04/2017 Tertiary NOT GIVENUNK Francesca Insurance:SELF PAY [facility] Number: Effective Repository Date:2017-10-27 11/02/2017 HARI Primary VIDHYA Ma [id number] Insurance:MEDICARE LISTERDOB: Community [address] [facility] [id number] Valley Hospital[place] Number: Repository [address]Uad: 419 [id number] [phone] () Date:2017-10-05 11/02/2017 Secondary HARI Francesca Insurance:AARPPolicy LISTERDOB: Community Number: [id number] Hospital [id number] Repository Date:6384-85-01TQ [address]NPQDNOY, [place] [address]IV: 11/02/2017 Tertiary NOT GIVENUNK [facility] Insurance:SELF PAY Community [facility] Number: Effective Repository Date:2017-10-15 10/27/2017 HARI Primary VIDHYA Cunningham Francesca [id number] Insurance:MEDICARE LISTERDOB: Community [address] [facility] [id number], [place] Number: Repository [address]Bsl: 419 [id number] [phone] (HP) Date:2017-10-14 10/27/2017 Secondary VIDHYA Ma Insurance:AARPPolicy LISTERDOB: Community Number: [id number] Hospital [id number] Repository Date:2344-73-48AP [address]EF[place], [place] [address]BB: 10/27/2017 Tertiary NOT GIVENUNK [facility] Insurance:SELF PAY [facility] Number: Effective Repository Date:2017-10-14 10/05/2017 HARI Primary VIDHYA Cunningham Francesca [id number] Insurance:MEDICARE LISTERDOB: Community [address] [facility] [id number] Valley Hospital[place] Number: Repository [address]Axj: 419 [id number] [phone] () Date:2017-10-05 10/05/2017 Secondary VIDHYA Ma Insurance:AARPPolicy LISTERDOB: Community Number: [id number] Hospital [id number] Repository Date:8428-68-03OB [address], [place] [address]RW: 10/05/2017 Tertiary NOT GIVENUNK [facility] Insurance:SELF PAY [facility] Number: Effective Repository Date:2017-10-05 09/29/2017 HARI Primary VIDHYA Cunningham Francesca [id number] Insurance:MEDICARE LISTERDOB: Community [address] [facility] [id number] Valley [facility] Number: Repository [address]Hrq: 419 [id number] [phone] (HP) Date:2017-09-15 09/29/2017 Secondary VIDHYA Ma Insurance:AARPPolicy LISTERDOB: Community Number: [id number] Hospital [id number] Repository Date:4351-64-12QN [address]KDUUWZB, [place] [address]CV: 09/29/2017 Tertiary NOT GIVENUNK [facility] Insurance:SELF PAY [facility] Number: Effective Repository Date:2017-09-15 09/29/2017 HARI Primary VIDHYA Ma [id number] Insurance:MEDICARE LISTERDOB: Community [address] [facility] [id number], [place] Number: Repository [id number]: [phone] [id number] [phone] (HP) Date:2017-09-15 09/29/2017 Secondary HARI Anchor Insurance:AARPPolicy LISTERDOB: [facility] Number: [id number] [id number] Repository Date:[id number], [place] [address]XP: 09/29/2017 Tertiary NOT GIVENUNK Anchor Insurance:SELF PAY [facility] Number: Effective Repository Date:2017-09-29 09/15/2017 HARI Primary HARI [place] [id number] Insurance:MEDICARE LISTERDOB: Community [address] [facility] [id number] Number: Repository [id number]: [id number] [phone] (HP) Date:2017-07-22 09/15/2017 Secondary HARI Francesca Insurance:AARPPolicy LISTERDOB: Community Number: [id number] [id number] Repository Date:[id number], [place] [address]XG: 09/15/2017 Tertiary NOT GIVENUNK Anchor Insurance:SELF PAY [facility] Number: Effective Repository Date:2017-07-22
== END 2018-08-02 10:00 | disposition home or self-care (01) ==
LOC: LAB 09:04
PROVIDERS: Family Provider Nurse Practitioner; PCP Nurse Practitioner; Referring Provider Internal Medicine Cardiovascular Disease; Visit Provider Internal Medicine Cardiovascular Disease
DX: I48.0 Paroxysmal atrial fibrillation (principal); Z79.01 Long term (current) use of anticoagulants
CPT/HCPCS: 36415; 85610

== ENCOUNTER 2018-08-30 09:32 | Outpatient (RCR) | payer MEDICARE, OTHER, SELFPAY ==
[2018-08-30 10:29] LABS: International Normalized Ratio 2.8; Prothrombin Time (Protime)PT. 29.4 SECONDS (11.7-14.9)
== END 2018-08-30 10:32 | disposition home or self-care (01) ==
LOC: LAB 09:32
PROVIDERS: Family Provider Nurse Practitioner; PCP Nurse Practitioner; Referring Provider Internal Medicine Cardiovascular Disease; Visit Provider Internal Medicine Cardiovascular Disease
DX: I48.0 Paroxysmal atrial fibrillation (principal); Z79.01 Long term (current) use of anticoagulants
CPT/HCPCS: 36415; 85610

== ENCOUNTER → 2018-09-20 14:45 | Outpatient (CLI) | payer MEDICARE, OTHER, SELFPAY ==
[2018-09-20 14:19] VITALS: BMI 37.2
--- NOTE | 2018-09-20 14:48 | CT_ITS ---
STUDY: CT ABDOMEN AND PELVIS WITHOUT CONTRAST REASON FOR EXAM: Male, 78 years old. Hematuria. History of kidney stone. RADIATION DOSAGE (If Supplied By Facility): CTDIvol = ( 14.72 ) mGy, DLP = ( 729.45 ) mGycm TECHNIQUE: Transaxial images were obtained from the dome of the diaphragm to the symphysis pubis without oral contrast, and without intravenous contrast. Sagittal and coronal images were reconstructed. Individualized dose optimization techniques were used for this CT. COMPARISON: None. FINDINGS: The visualized lung bases are unremarkable. Coronary artery calcification. Normal liver. Normal gallbladder and extrahepatic biliary system. Normal spleen. Normal pancreas. Normal bilateral adrenal glands. There is a 3.1 cm x 3.6 cm solid mass arising from the lower anterior aspect of the right kidney. A neoplastic process should be ruled out. A repeat examination following intravenous contrast administration is recommended. There is a 5 cm x 4.2 cm cyst in the lower pole of the left kidney. Normal visualized stomach. Normal small intestine. There are multiple colonic diverticula consistent with diverticulosis. The appendix is visualized and appears normal. There is diffuse atherosclerotic calcification of the abdominal aorta and its major visceral branches., without a demonstrated aneurysm. Normal inferior vena cava. There is borderline retroperitoneal lymphadenopathy with enlarged nodes no greater than 10mm in the short axis diameter. Normal urinary bladder. The patient is status post prostatectomy. Calcified phleboliths are seen within the pelvis. Normal abdominal wall. There are diffuse degenerative changes of the visualized lumbar spine. CT/Abdomen/Pelvis without Cont IMPRESSION: Findings suggestive of a 3.1 cm x 3.6 on a solid mass arising from the lower anterior aspect of the right kidney. A repeat CT scan following IV contrast is recommended for further evaluation. Diffuse atherosclerosis of the abdominal aorta and major vessels. Electronically Signed: Luis Antonio Osullivan MD at 15:37 EST , Service support ,
[2018-09-20 15:09] LABS: Hematocrit 36.6 % (40-54); Hemoglobin 11.2 g/dl (13.0-16.5); Mean Corp Hgb Conc 30.6 g/gl (32-36); Mean Corpuscular Hgb 27.8 pg (27.0-32.0); Mean Corpuscular Volume 90.8 fL (80-94); Mean Platelet Vol. 10.6 fl (6.2-12.0); Platelet Count 285 K/mm3 (150-450); RBC Distribution Width CV 14.6 % (11.6-14.6); RBC Distribution Width SD 48.4 fl (35.1-43.9); Red Blood Count 4.03 M/mm3 (4.6-6.2); White Blood Count 10.2 K/mm3 (4.4-11.0)
[2018-09-20 15:13] LABS: Scan Indicated on CBC? Y/N NO
[2018-09-20 15:18] LABS: International Normalized Ratio 3.2; Prothrombin Time (Protime)PT. 32.7 SECONDS (11.7-14.9)
== END ==
PROVIDERS: Family Provider Nurse Practitioner; PCP Nurse Practitioner; Referring Provider Nurse Practitioner Gerontology; Visit Provider Nurse Practitioner Gerontology
DX: R10.84 Generalized abdominal pain (principal); R31.9 Hematuria, unspecified; Z79.01 Long term (current) use of anticoagulants
CPT/HCPCS: 74176; 85027; 85610

== ENCOUNTER → 2018-09-23 10:08 | Outpatient (CLI) | payer MEDICARE, OTHER, SELFPAY ==
[2018-09-20 14:19] VITALS: BMI 37.2
--- NOTE | 2018-09-23 10:11 | CT_ITS ---
STUDY: CT ABDOMEN AND PELVIS WITH CONTRAST REASON FOR EXAM: Male, 78 years old. Left flank pain, elevated BUN/creatinine RADIATION DOSAGE (If Supplied By Facility): CTDIvol = ( 23.58 ) mGy, DLP = ( 1809.75 ) mGycm TECHNIQUE: Transaxial images were obtained from the dome of the diaphragm to the symphysis pubis with oral contrast. 100 ml of Isovue 300 contrast was administered. Sagittal and coronal images were reconstructed. Individualized dose optimization techniques were used for this CT. COMPARISON: None. FINDINGS: The visualized lung bases are unremarkable. The visualized portions of the heart are within normal limits. Normal liver. Normal gallbladder and extrahepatic biliary system. Normal spleen. Normal pancreas. Normal bilateral adrenal glands. No obstructive uropathy, stable bilateral renal cysts. Normal visualized stomach. Normal small intestine. Retained stool noted throughout the colon. There are a few scattered colonic diverticula. Along the proximal sigmoid colon there is abnormal thickening and pericolonic inflammation suggesting an acute focal diverticula. This is best seen on coronal recon images 48 through 55. No perforation or abscess is noted. There is non-visualization of the appendix. There is diffuse atherosclerotic calcification of the abdominal aorta, without a demonstrated aneurysm. Normal inferior vena cava. Normal retroperitoneum. Normal urinary bladder. Normal abdominal wall. There are diffuse degenerative changes of the visualized lumbar spine, and pelvis. CT/Abdomen/Pelvis WITH Contrast IMPRESSION: Acute sigmoid diverticulitis without perforation or abscess. Bilateral simple renal cysts, no obstructive uropathy or suspicious solid organ abnormality. No free intraperitoneal fluid, air, or suspicious adenopathy Electronically Signed: Tonio Vasquez MD at 13:05 EST , Service support ,
[2018-09-23 12:32] LABS: CREATININE FINGERSTICK 0.9 mg/dL (0.70-1.30); EGFR FINGERSTICK > 60.0000 mL/min (>60)
== END ==
PROVIDERS: Family Provider Nurse Practitioner; PCP Nurse Practitioner; Referring Provider Nurse Practitioner Gerontology; Visit Provider Nurse Practitioner Gerontology
DX: N28.1 Cyst of kidney, acquired (principal); K57.32 Diverticulitis of large intestine without perforation or abscess without bleeding
CPT/HCPCS: 74177; Q9967

== ENCOUNTER 2018-10-05 12:34 | Outpatient (RCR) | payer MEDICARE, OTHER, SELFPAY ==
[2018-09-20 14:19] VITALS: BMI 37.2
[2018-10-05 14:01] LABS: International Normalized Ratio 2.4; Prothrombin Time (Protime)PT. 26.2 SECONDS (11.7-14.9)
== END 2018-10-14 11:02 | disposition home or self-care (01) ==
LOC: LAB 12:34
PROVIDERS: Family Provider Nurse Practitioner; PCP Nurse Practitioner; Referring Provider Internal Medicine Cardiovascular Disease; Visit Provider Internal Medicine Cardiovascular Disease
DX: I48.0 Paroxysmal atrial fibrillation (principal); Z79.01 Long term (current) use of anticoagulants
CPT/HCPCS: 36415; 85610

== ENCOUNTER 2018-11-05 11:38 | Outpatient (RCR) | payer MEDICARE, OTHER, SELFPAY ==
[2018-09-20 14:19] VITALS: BMI 37.2
[2018-10-15 11:47] LABS: International Normalized Ratio 2.3; Prothrombin Time (Protime)PT. 25.7 SECONDS (11.7-14.9)
[2018-11-05 12:29] LABS: International Normalized Ratio 2.7; Prothrombin Time (Protime)PT. 28.5 SECONDS (11.7-14.9)
== END 2018-11-05 12:00 | disposition home or self-care (01) ==
LOC: LAB 11:38
PROVIDERS: Family Provider Nurse Practitioner; PCP Nurse Practitioner; Referring Provider Internal Medicine Cardiovascular Disease; Visit Provider Internal Medicine Cardiovascular Disease
DX: I48.0 Paroxysmal atrial fibrillation (principal); Z79.01 Long term (current) use of anticoagulants
CPT/HCPCS: 36415; 85610

== ENCOUNTER 2018-12-01 12:58 | Outpatient (RCR) | payer MEDICARE, OTHER, SELFPAY ==
[2018-09-20 14:19] VITALS: BMI 37.2
[2018-12-01 14:11] LABS: International Normalized Ratio 2.3; Prothrombin Time (Protime)PT. 25.7 SECONDS (11.7-14.9)
== END 2018-12-14 16:00 | disposition home or self-care (01) ==
LOC: LAB 12:58
PROVIDERS: Family Provider Nurse Practitioner; PCP Nurse Practitioner; Referring Provider Internal Medicine Cardiovascular Disease; Visit Provider Internal Medicine Cardiovascular Disease
DX: I48.0 Paroxysmal atrial fibrillation (principal); Z79.01 Long term (current) use of anticoagulants
CPT/HCPCS: 36415; 85610

== ENCOUNTER 2018-12-08 17:58 | Emergency (ER) | payer MEDICARE, OTHER, SELFPAY ==
[2018-09-20 14:19] VITALS: BMI 37.2
[2018-12-08 17:59] VITALS: BP 155/67; PULSE 89; RESP 20; TEMP 38.1; O2SAT 88; BMI 37.2
[2018-12-08 18:17] VITALS: TEMP 37.7
--- NOTE | 2018-12-08 18:17 | RAD_ITS ---
STUDY: X-RAY CHEST REASON FOR EXAM: Male, 78 years old. Nausea and vomiting for 2 hours. TECHNIQUE: 2 views COMPARISON: None. FINDINGS: The lungs are clear and expanded. There is no demonstrated pleural abnormality. Normal size heart. Normal mediastinum and lourdes. Normal visualized pulmonary arteries. There is atherosclerotic calcification of the aortic arch with tortuosity. There are diffuse degenerative changes of the visualized thoracic spine. There is degenerative osteoarthritis of the bilateral shoulders. There is no demonstrated abnormality of the visualized soft tissue structures of the upper abdomen. RAD/Chest PA and Lateral IMPRESSION: No acute cardiopulmonary findings or changes. Electronically Signed: Dannielle Arrieta MD at 19:09 EDT , Service support ,
--- NOTE | 2018-12-08 18:17 | EKG12_ITS ---
Test Reason : N/V Blood Pressure : / mmHG Vent. Rate : 082 BPM Atrial Rate : 312 BPM P-R Int : 000 ms QRS Dur : 092 ms QT Int : 368 ms P-R-T Axes : 000 -08 037 degrees QTc Int : 429 ms Atrial fibrillation Incomplete right bundle branch block Abnormal ECG Confirmed by MIKEL WATSON, NINFA ([id number]), publications editor ESAU ANN ([id number]) on 12/13/2018 10:48:47 AM Referred By: Pro Suresh Confirmed By:NINFA MORIN MD
[2018-12-08 18:23] VITALS: O2SAT 96
[2018-12-08] MEDS: Acetaminophen 500 MG Tablet 1000 MG PO (18:26)
[2018-12-08 19:04] LABS: ALB/GLOB Ratio 0.8 RATIO (0.9-2.4); AST(SGOT) 29 U/L (15-37); Alanine Aminotransfer ALT/SGPT 31 U/L (16-61); Alkaline Phosphatase 57 U/L (45-117); Anion Gap 6 (5-15); BUN 17 mg/dL (7-18); BUN/Creat Ratio 15.5 RATIO (10-20); Calcium,Total 8.4 mg/dL (8.5-10.1); Chloride 104 mmol/L (98-107); EST Glomerular Filtration Rate 69 mL/min (>60); Est Glom Filt Rate - Afr Amer 84 mL/min (>60); Estimated Creatinine Clearance 47.84 ml/min; Globulin 3.6 g/dL (2.2-4.2); Glucose 189 mg/dL (74-106); Potassium 3.8 mmol/L (3.5-5.1); Protein, Total 6.6 g/dL (6.4-8.2); Sodium Level 136 mmol/L (136-145)
[2018-12-08 19:11] LABS: Lactic Acid 2.4 mmol/L (0.4-2.0)
--- NOTE | 2018-12-08 19:12 | ED.RN ---
lab called with critical lab results. lactic acid 2.4. Dr. Garrido made aware no new orders at this time
[2018-12-08 19:28] LABS: Absolute Lymphocyte Count 0.48 X10^3/ul (0.83-4.51); Absolute Neutrophil Count 11.3 X10^3/uL (2.0-7.7); Basophil# 0.01 X10^3/uL; Basophil% 0.1 % (0-1); Eosinophil# 0.02 X10^3/uL; Eosinophils% 0.2 % (0-5); Hematocrit 33.5 % (40-54); Hemoglobin 10.5 g/dl (13.0-16.5); Lymphocyte # 0.48 X10^3/ul (4.0); Lymphocyte % 3.8 % (19-41); Mean Corp Hgb Conc 31.3 g/gl (32-36); Mean Corpuscular Hgb 27.4 pg (27.0-32.0); Mean Corpuscular Volume 87.5 fL (80-94); Mean Platelet Vol. 10.2 fl (6.2-12.0); Monocyte# 0.77 X10^3/uL; Monocyte% 6.1 % (0-10); Neutrophil % 89.6 % (47-70); Platelet Count 189 K/mm3 (150-450); RBC Distribution Width SD 51.3 fl (35.1-43.9); Red Blood Count 3.83 M/mm3 (4.6-6.2); White Blood Count 12.6 K/mm3 (4.4-11.0)
[2018-12-08 19:29] LABS: Differential Indicated SCAN CRITERIA MET; POSITIVE COUNT NO; POSITIVE DIFFERENTIAL YES; POSITIVE MORPHOLOGY NO
[2018-12-08 19:32] LABS: Prothrombin Time (Protime)PT. 31.1 SECONDS (11.7-14.9)
[2018-12-08 19:33] LABS: Partial Thromboplast Time 42.4 Seconds (24.1-36.2)
[2018-12-08 19:36] VITALS: BP 155/74; PULSE 89; RESP 16; O2SAT 94
[2018-12-08 19:48] LABS: Differential Comment SCANNED
[2018-12-08 19:53] LABS: Mucous, Urine 0 SEEN /hpf (<or=2+); Squamous Epithelial Cells - UA 0 SEEN /hpf (0-5)
[2018-12-08 19:55] LABS: Color, Urine Yellow (Yellow); Glucose, Dipstick Normal (Normal); Ketone-Dipstick 5 mg/dl (Negative); Leukocyte Esterase-Dipstick 500 /ul (Negative); Nitrite-Dipstick Positive (Negative); Occult Blood-Urine 250 /ul (Negative); Protein-Dipstick 100 mg/dl (Negative); Specific Gravity, Urine 1.015 (1.002-1.030); Urine Bilirubin Dipstick Negative (Negative); Urine Clarity Cloudy (Clear); Urine Urobilinogen Normal (Normal)
--- NOTE | 2018-12-08 20:00 | ED.VIS.GEN ---
History of Present Illness Chief Complaint: Nausea/Vomiting Informant: Patient, Family Onset: Today Context: Sudden Onset Maximum Severity: Moderate Narrative: Patient presenting for evaluation secondary to generalized illness. Patient reports that he was feeling well all day today, but had a sudden onset where he felt generally weak and tremulous. Patient apparently was standing and became so tremulous that he had a slow controlled fall to the ground. He did not hit his head or lose consciousness. Patient reports that he has had some nausea and vomiting today. 2 episodes of nonbloody nonbilious emesis. He denies any abdominal pain. He does state that he feels subjectively febrile, he denies any cough or shortness of breath. He reports that he is been having some urinary issues over the course of the last couple of days. Review of systems otherwise negative. Past Medical History - Allergies and Home Meds Allergies/Adverse Reactions: Allergies No Known Allergies Allergy (Verified 12/08/18 17:59) Primary Care Physician: Yoon Alba NP-C [Primary Care Provider] - 3-5 Days Smoking Status: Never smoker Review of Systems All systems negative except as indicated General: Reports: Fever ENT: Denies: Sore throat Cardiovascular: Denies: Chest pain, Palpitations Respiratory: Denies: Cough Gastrointestinal: Reports: Nausea, Vomiting. Denies: Abdominal pain, Diarrhea Neurological: Reports: Weakness. Denies: Headache Physical Exam Vital Signs/Narrative: Vital Signs Temp Pulse Resp BP Pulse Ox 12/08/18 19:36 89 16 155/74 H 94 12/08/18 18:23 96 12/08/18 18:17 100 F H 12/08/18 17:59 100.5 F H 89 20 H 155/67 H 88 General: Well nourished, Well developed, No Acute Distress, - - Skin is hot to the touch Head: Normocephalic, Atraumatic Eyes: Perrl, EOMI ENT: Moist mucous membranes, No rhinorrhea Neck: Supple, Nontender Cardiovascular: Regular rate, Irregular, Murmur - 2 out of 6 systolic, - - 2+ radial pulses bilaterally symmetric Respiratory: No distress, CTA bilaterally, Chest nontender Abdomen: Soft, Nontender, Nondistended, Normal bowel sounds Back: Nontender, Normal Inspection Extremities: Nontender, No edema Skin: Normal color, No rash Neurological: Alert, Oriented x3, Cranial nerves II-XII grossly intact, Normal Strength, Normal Sensation Psychological: Normal affect, Normal Mood Diagnostic/Tx/Re-eval Chest X-Ray - ED: Normal - EKG Initial EKG Interpretation: - - Atrial fibrillation with a ventricular rate of 82. Incomplete right bundle branch block is noted which was noted on a prior EKG in October 2013. No evidence of acute ST segment changes or T wave changes. No acute ischemia or arrhythmia. - Medical Decision Making Patient presented secondary to generalized illness. He was found to have a low-grade fever so a sepsis work-up was obtained. Patient was given Tylenol. Patient was found to have a leukocytosis of 12, chemistry panel unremarkable, INR therapeutic at 3. Chest x-ray shows no acute pathology. Patient was ambulated in the emergency department and did not have hypoxia. Patient's temperature improved with Tylenol. Urinalysis was obtained and ended up showing the patient have a UTI. Patient upon arrival had a low-grade temperature and leukocytosis and technically would meet sepsis criteria but is extremely well-appearing, and I do not believe that he requires admission at this point. Patient is on Coumadin, he will be treated with Keflex for his UTI. His urine was cultured. He was given strict return instructions which both he and his voiced understanding and their own terms. Patient was discharged in improved condition. ED Disposition - Plan for ED Patient: Disposition: Home or Assisted Living Diagnosis: UTI (urinary tract infection), Sepsis Instructions: ED UTI Cystitis Male Prescriptions: Cephalexin [Keflex] 500 mg PO Q6 #40 cap Referrals: Yoon Alba, WILLIAN-C [Primary Care Provider] - 3-5 Days
--- NOTE | 2018-12-08 20:03 | ED.DCSUM_ITS ---
History of Present Illness Chief Complaint: Nausea/Vomiting Informant: Patient, Family Onset: Today Context: Sudden Onset Maximum Severity: Moderate Narrative: Patient presenting for evaluation secondary to generalized illness. Patient reports that he was feeling well all day today, but had a sudden onset where he felt generally weak and tremulous. Patient apparently was standing and became so tremulous that he had a slow controlled fall to the ground. He did not hit his head or lose consciousness. Patient reports that he has had some nausea and vomiting today. 2 episodes of nonbloody nonbilious emesis. He denies any abdominal pain. He does state that he feels subjectively febrile, he denies any cough or shortness of breath. He reports that he is been having some urinary issues over the course of the last couple of days. Review of systems otherwise negative. Past Medical History - Allergies and Home Meds Allergies/Adverse Reactions: Allergies No Known Allergies Allergy (Verified 12/08/18 17:59) Primary Care Physician: Yoon Alba NP-C [Primary Care Provider] - 3-5 Days Smoking Status: Never smoker Review of Systems All systems negative except as indicated General: Reports: Fever ENT: Denies: Sore throat Cardiovascular: Denies: Chest pain, Palpitations Respiratory: Denies: Cough Gastrointestinal: Reports: Nausea, Vomiting. Denies: Abdominal pain, Diarrhea Neurological: Reports: Weakness. Denies: Headache Physical Exam Vital Signs/Narrative: Vital Signs Temp Pulse Resp BP Pulse Ox 12/08/18 19:36 89 16 155/74 H 94 12/08/18 18:23 96 12/08/18 18:17 100 F H 12/08/18 17:59 100.5 F H 89 20 H 155/67 H 88 General: Well nourished, Well developed, No Acute Distress, - - Skin is hot to the touch Head: Normocephalic, Atraumatic Eyes: Perrl, EOMI ENT: Moist mucous membranes, No rhinorrhea Neck: Supple, Nontender Cardiovascular: Regular rate, Irregular, Murmur - 2 out of 6 systolic, - - 2+ radial pulses bilaterally symmetric Respiratory: No distress, CTA bilaterally, Chest nontender Abdomen: Soft, Nontender, Nondistended, Normal bowel sounds Back: Nontender, Normal Inspection Extremities: Nontender, No edema Skin: Normal color, No rash Neurological: Alert, Oriented x3, Cranial nerves II-XII grossly intact, Normal Strength, Normal Sensation Psychological: Normal affect, Normal Mood Diagnostic/Tx/Re-eval Chest X-Ray - ED: Normal - EKG Initial EKG Interpretation: - - Atrial fibrillation with a ventricular rate of 82. Incomplete right bundle branch block is noted which was noted on a prior EKG in October 2013. No evidence of acute ST segment changes or T wave changes. No acute ischemia or arrhythmia. - Medical Decision Making Patient presented secondary to generalized illness. He was found to have a low- grade fever so a sepsis work-up was obtained. Patient was given Tylenol. Patient was found to have a leukocytosis of 12, chemistry panel unremarkable, INR therapeutic at 3. Chest x-ray shows no acute pathology. Patient was amb ulated in the emergency department and did not have hypoxia. Patient's temperature improved with Tylenol. Urinalysis was obtained and ended up showing the patient have a UTI. Patient upon arrival had a low-grade temperature and leukocytosis and technically would meet sepsis criteria but is extremely well- appearing, and I do not believe that he requires admission at this point. Patient is on Coumadin, he will be treated with Keflex for his UTI. His urine was cultured. He was given strict return instructions which both he and his voiced understanding and their own terms. Patient was discharged in improved condition. ED Disposition - Plan for ED Patient: Disposition: Home or Assisted Living Diagnosis: UTI (urinary tract infection), Sepsis Instructions: ED UTI Cystitis Male Prescriptions: Cephalexin [Keflex] 500 mg PO Q6 #40 cap Referrals: Yoon Alba, WILLIAN-C [Primary Care Provider] - 3-5 Days
[2018-12-08 20:06] LABS: White Blood Cells 50-100 SEEN /hpf (0-5)
[2018-12-08 20:07] LABS: Bacteria RARE /hpf (None Seen); Red Blood Cells-Urine 5-10 SEEN /hpf (0-5)
[2018-12-08 20:28] VITALS: BP 120/50; PULSE 85; RESP 16; TEMP 36.8; O2SAT 93; O2SAT 94
[2018-12-08 21:10] VITALS: PULSE 86; RESP 16
[2018-12-08] MEDS: Cephalexin 250 MG Capsule 500 MG PO (21:10)
[2018-12-08 22:35] LABS: Reflex Lactate? Y
== END 2018-12-08 21:11 | disposition home or self-care (01) ==
PROVIDERS: Emergency Provider Emergency Medicine; Family Provider Nurse Practitioner; PCP Nurse Practitioner
DX: A41.9 Sepsis, unspecified organism (principal); N39.0 Urinary tract infection, site not specified; I45.10 Unspecified right bundle-branch block; I48.91 Unspecified atrial fibrillation; Z79.01 Long term (current) use of anticoagulants
CPT/HCPCS: 36415; 71046; 80053; 81001; 83605; 85025; 85610; 85730; 87040; 87086; 87088; 93005; 99285; J7030; A4216; J2405

== ENCOUNTER 2018-12-09 03:14 | Inpatient (IN) | payer MEDICARE, OTHER, SELFPAY ==
[2018-12-08 17:59] VITALS: BMI 37.2
[2018-12-09] VITALS (13 sets, daily range): BP systolic 107–184; BP diastolic 49–75; PULSE 60–101; RESP 16–28; TEMP 36.7–38.7; O2SAT 94–97; BMI 37.0; BMI 35.8; BMI 37.1
--- NOTE | 2018-12-09 03:34 | ED.DCSUM_ITS ---
- ER Visit Summary Date of Service: 12/09/18 Chief Complaint: [Shaking chills] History of Present Illness: The patient is a 78 M [presents the emergency department with complaint of shaking chills. Patient was seen earlier in the day for fever and vomiting and diagnosed with a urinary tract infection and s epsis. It was felt that patient looked well clinically and was discharged home with instructions to return if symptoms worsen. Patient states that he went home and then eventually went to bed and started having shaking chills. Patient has not taken anything for his fever. He has had no further vomiting. He denies any abdominal pain. Patient has some mild discomfort in his right back but he states that is a chronic pain since he is been a child. Patient is a diabetic and has history of hypertension. He complains of dysuria and frequency.] Physical Examination: [HEENT-PERRLA, EOMI. Cranial nerves II through XII grossly intact. TMs clear. Mucous membranes moist. No adenopathy. Cardiovascular-regular rate and rhythm with 2 out of 6 stock ejection murmur Lungs-clear to auscultation, chest wall stable without crepitus or subcu emphysema Abdomen-normoactive bowel sounds, soft, nontender, no rebound or rigidity, no peritoneal signs. Extremities-intact ?4, normal range of motion, normal pulses, atraumatic] Test Results: [CBC and lactate ordered and pending.] Emergency Department Course and Treatment: [Patient was medicated with Rocephin 1 g IV and was given Tylenol 650 mg p.o. Patient was given a liter normal same fluid bolus.] Treatment Plan: [Patient case will be discussed with hospitalist will evaluate patient for admission] Disposition: [Admit] Impression: [UTI Sepsis] This note was generated with [employer] dictation software. It may contain incorrect words, spelling, and punctuation that were not noted in review of the chart prior to signing ED Disposition - Plan for ED Patient: Referrals: Yoon Alba, WILLIAN-C [Primary Care Provider] -
[2018-12-09 03:42] LABS: Absolute Lymphocyte Count 0.69 X10^3/ul (0.83-4.51); Absolute Neutrophil Count 10.8 X10^3/uL (2.0-7.7); Basophil# 0.02 X10^3/uL; Basophil% 0.2 % (0-1); Eosinophil# 0.04 X10^3/uL; Eosinophils% 0.3 % (0-5); Hematocrit 35.3 % (40-54); Hemoglobin 11.2 g/dl (13.0-16.5); Lymphocyte # 0.69 X10^3/ul (4.0); Lymphocyte % 5.8 % (19-41); Mean Corp Hgb Conc 31.7 g/gl (32-36); Mean Corpuscular Hgb 27.9 pg (27.0-32.0); Mean Corpuscular Volume 87.8 fL (80-94); Mean Platelet Vol. 10.6 fl (6.2-12.0); Monocyte# 0.27 X10^3/uL; Monocyte% 2.3 % (0-10); Neutrophil # 10.75 X10^3/uL (2.7-7.7); Neutrophil % 91.1 % (47-70); Platelet Count 198 K/mm3 (150-450); RBC Distribution Width CV 15.8 % (11.6-14.6); RBC Distribution Width SD 50.4 fl (35.1-43.9); Red Blood Count 4.02 M/mm3 (4.6-6.2); White Blood Count 11.8 K/mm3 (4.4-11.0)
[2018-12-09 03:43] LABS: POSITIVE COUNT NO; POSITIVE DIFFERENTIAL NO; POSITIVE MORPHOLOGY NO
[2018-12-09] MEDS: 0.9% Normal Saline 1,000 ML 1000 ML IV (03:49)
[2018-12-09] MEDS: Acetaminophen 325 MG Tablet 650 MG PO ×2 (03:49→08:42)
[2018-12-09] MEDS: Ceftriaxone 1 GM/50 ML BAG IV (03:49)
[2018-12-09 04:22] LABS: Lactic Acid 5.2 mmol/L (0.4-2.0)
--- NOTE | 2018-12-09 04:22 | ED.RN ---
lab called with critical lab results. Lactic acid 5.3. Dr. Willis made aware. no new orders at this time
--- NOTE | 2018-12-09 04:38 | PCM.HP.STD ---
Problem List (1) Sepsis secondary to UTI Status: Acute (2) Atrial fibrillation Status: Chronic Qualifiers: (3) Diabetes mellitus, type II Status: Chronic (4) Hyperlipidemia Status: Chronic Qualifiers: (5) Hypertension Status: Chronic Qualifiers: History of Present Illness Date of Admission: 12/09/18 Chief Complaint: Fevers and chills The patient is a 78 year old M with PMH as below who presented to the ER on December 08 with lower abdominal pain and some right flank pain, he stated that it felt sort of like a kidney stone. Everything had started 3 to 4 hours prior to his initial presentation to the ER. He woke up yesterday morning just fine and then developed some nausea and vomiting. On his initial presentation to the ER he was found to have a UTI and a urine culture was obtained. He was given a dose of Keflex here in the ER and was discharged home after receiving some IV fluids. At home he spiked a fever and developed more significant shaking and chills and his family brought him back to the ER. His lactic acid on his second ER visit was elevated to a little over 5, his white count was 11.8, he was tachycardic as well as tachypneic. He was given a dose of IV Rocephin as well as IV fluids here in the ER. Past Medical History Past Medical History (Chronic Problems): Chronic Problems (Last Reviewed 09/14/18 @ 13:22 by Antonio Eubanks MD) Atrial fibrillation (Chronic) Diabetes mellitus, type II (Chronic) Hyperlipidemia (Chronic) Hypertension (Chronic) Dyspnea on exertion (Chronic) History of stroke (Chronic) 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) Patent foramen ovale (Chronic) Atherosclerotic heart disease of [place] coronary artery without angina pectoris (Chronic) Paroxysmal atrial fibrillation (Chronic) prison (current) use of anticoagulants (Chronic) Medical History: Medical History (Last Reviewed 09/14/18 @ 13:22 by Antonio Eubanks MD) Atrial fibrillation (Chronic) I48.91 Diabetes mellitus, type II (Chronic) E11.9 Hyperlipidemia (Chronic) E78.5 Hypertension (Chronic) I10 Dyspnea on exertion (Chronic) R06.09 History of stroke (Chronic) Z86.73 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) I65.23 Patent foramen ovale (Chronic) Q21.1 Atherosclerotic heart disease of [place] coronary artery without angina pectoris (Chronic) I25.10 Paroxysmal atrial fibrillation (Chronic) 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) Z79.01 History of prostate cancer Z85.46 Allergies No Known Allergies Allergy (Verified 12/09/18 03:18) Home Medications: Ambulatory Orders Medication Instructions Recorded Multivitamins,Therapeutic 1 tab PO DAILY 10/21/13 [Multivitamin] acetaminophen 325 mg tablet 650 mg PO QDAY tab 09/09/17 atorvastatin 80 mg tablet 80 mg PO QDAY 09/09/17 cyanocobalamin (vit B-12) 100 mcg 100 mcg PO QDAY 09/09/17 tablet metformin 1,000 mg tablet 1,000 mg PO BID 09/15/17 lisinopril 20 mg tablet 20 mg PO QDAY tab 03/15/18 amlodipine 10 mg tablet 10 mg PO QDAY #90 tab 06/22/18 hydrochlorothiazide 25 mg tablet 25 mg PO QDAY #90 tab 10/04/18 warfarin 1 mg tablet 3 mg PO .COMPLEX #90 tab 11/26/18 warfarin 2 mg tablet 4 mg PO .COMPLEX #180 tab 11/26/18 Cephalexin [Keflex] 500 mg PO Q6 #40 cap 12/08/18 Surgical History: Surgical History (Last Reviewed 09/14/18 @ 13:22 by Antonio Eubanks MD) S/P prostatectomy Z90.79 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 Denies: Weight Change HEENT: Denies: Head Aches, Sinus Congestion, Sinus Drainage Cardiovascular: Denies: Chest Pain, Palpitations Respiratory: Denies: Cough, Shortness of breath at rest, Sputum production Gastrointestinal: Denies: Abdominal Pain, Nausea, Vomiting Genitourinary: Reports: - - Right CVA tenderness. Denies: Dysuria Musculoskeletal: Denies: Joint Pain, Joint Tenderness Skin: Denies: Rash, Wounds Neurological: Denies: Numbness, Tingling, Focal weakness Psychiatric: Denies: Anxiety, Depression Hematologic/ Lymphatic: Denies: Easy Bruising, Easy Bleeding VTE Information - Inpt Only VTE Present on Admission: No Patient Problems: Active and Suspected Problems (Last Reviewed 09/14/18 @ 13:22 by Antonio Eubanks MD) Sepsis secondary to UTI (Acute) - Physical Exam General: Alert, Oriented x3, Cooperative, No apparent distress HEENT: Atraumatic, PERRLA, EOMI, Normocephalic Oral: Dry Mucosa Neck: Supple, No JVD, Trachea Midline Lungs: Clear to auscultation, Normal air movement, No rhonchi, No wheeze, No rales Cardiovascular: Regular rate, Regular Rhythm, Normal S1, Normal S2, No murmurs Abdomen: Soft, Non Tender, Non-Distended, No Hepato-splenomegaly, - - Right CVA tenderness Extremities: No edema, Capillary Refill Less than 3 Seconds Skin: No rashes, No breakdown Neurological: Neuro grossly intact, Sensory exam intact to light touch and pain Psych/Mental Status: Normal Affect, Appropriate Vital Signs Temp Pulse Resp BP Pulse Ox 101.7 F H 101 H 28 H 119/64 94 12/09/18 03:17 12/09/18 03:17 12/09/18 03:17 12/09/18 03:17 12/09/18 03:17 Oxygen Delivery Method Room Air Weight: 216 lb 0.848 oz Body Mass Index (BMI) 37.0 Laboratory Tests Past 24 Hrs 12/09/18 12/09/18 03:30 03:30 WBC 11.8 H RBC 4.02 L Hgb 11.2 L Hct 35.3 L MCV 87.8 MCH 27.9 MCHC 31.7 L RDW 15.8 H RDW Differential 50.4 H Plt Count 198 MPV 10.6 Immature Gran % (Auto) 0.300 Neut % (Auto) 91.1 H Lymph % (Auto) 5.8 L [place] % (Auto) 2.3 Eos % (Auto) 0.3 Baso % (Auto) 0.2 Absolute Neuts (auto) 10.8 H Absolute Lymphs (auto) 0.69 L Total Counted Not Reportable Lactic Acid 5.2 H* Assessment/Plan All Active Problems (Last Reviewed 09/14/18 @ 13:22 by Antonio Eubanks MD) Sepsis secondary to UTI (Acute) 1. Sepsis secondary to UTI -His initial UA was significant for urinary tract infection and a urine culture was obtained and ordered yesterday. -Ischemic dose of Rocephin in the ER will be transitioned to IV Ancef as it has better urine penetration -He received sepsis bolus in the ER and will continue with IV fluids at 100 cc/h -Repeat lactic acid pending, on admission little over 5 today 2. HTN/HLD/A. fib -Blood pressures are stable, but will hold hypertension medications. -Continue with Lipitor -We will continue with his home Coumadin and will adjust as necessary given that he will be on antibiotics 3. DM2 -He is on metformin at home, which will be held and he will be transitioned to long-acting as well as a sliding scale insulin. DVT: Lovenox Code Visit Inpatient E&M: 54063 Init Hosp L3
--- NOTE | 2018-12-09 04:42 | HP.PCM_ITS ---
Problem List (1) Sepsis secondary to UTI Status: Acute (2) Atrial fibrillation Status: Chronic Qualifiers: (3) Diabetes mellitus, type II Status: Chronic (4) Hyperlipidemia Status: Chronic Qualifiers: (5) Hypertension Status: Chronic Qualifiers: History of Present Illness Date of Admission: 12/09/18 Chief Complaint: Fevers and chills The patient is a 78 year old M with PMH as below who presented to the ER on December 08 with lower abdominal pain and some right flank pain, he stated that it felt sort of like a kidney stone. Everything had started 3 to 4 hours prior to his initial presentation to the ER. He woke up yesterday morning just fine and then developed some nausea and vomiting. On his initial presentation to the ER he was found to have a UTI and a urine culture was obtained. He was given a dose of Keflex here in the ER and was discharged home after receiving some IV fluids. At home he spiked a fever and developed more significant shaking and chills and his family brought him back to the ER. His lactic acid on his second ER visit was elevated to a little over 5, his white count was 11.8, he was tachycardic as well as tachypneic. He was given a dose of IV Rocephin as well as IV fluids here in the ER. Past Medical History Past Medical History (Chronic Problems): Chronic Problems (Last Reviewed 09/14/18 @ 13:22 by Antonio Eubanks MD) Atrial fibrillation (Chronic) Diabetes mellitus, type II (Chronic) Hyperlipidemia (Chronic) Hypertension (Chronic) Dyspnea on exertion (Chronic) History of stroke (Chronic) 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) Patent foramen ovale (Chronic) Atherosclerotic heart disease of [place] coronary artery without angina pectoris (Chronic) Paroxysmal atrial fibrillation (Chronic) intermediate (current) use of anticoagulants (Chronic) Medical History: Medical History (Last Reviewed 09/14/18 @ 13:22 by Antonio Eubanks MD) Atrial fibrillation (Chronic) I48.91 Diabetes mellitus, type II (Chronic) E11.9 Hyperlipidemia (Chronic) E78.5 Hypertension (Chronic) I10 Dyspnea on exertion (Chronic) R06.09 History of stroke (Chronic) Z86.73 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) I65.23 Patent foramen ovale (Chronic) Q21.1 Atherosclerotic heart disease of [place] coronary artery without angina pectoris (Chronic) I25.10 Paroxysmal atrial fibrillation (Chronic) 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) Z79.01 History of prostate cancer Z85.46 Allergies No Known Allergies Allergy (Verified 12/09/18 03:18) Home Medications: Ambulatory Orders Medication Instructions Recorded Multivitamins,Therapeutic 1 tab PO DAILY 10/21/13 [Multivitamin] acetaminophen 325 mg tablet 650 mg PO QDAY tab 09/09/17 atorvastatin 80 mg tablet 80 mg PO QDAY 09/09/17 cyanocobalamin (vit B-12) 100 mcg 100 mcg PO QDAY 09/09/17 tablet metformin 1,000 mg tablet 1,000 mg PO BID 09/15/17 lisinopril 20 mg tablet 20 mg PO QDAY tab 03/15/18 amlodipine 10 mg tablet 10 mg PO QDAY #90 tab 06/22/18 hydrochlorothiazide 25 mg tablet 25 mg PO QDAY #90 tab 10/04/18 warfarin 1 mg tablet 3 mg PO .COMPLEX #90 tab 11/26/18 warfarin 2 mg tablet 4 mg PO .COMPLEX #180 tab 11/26/18 Cephalexin [Keflex] 500 mg PO Q6 #40 cap 12/08/18 Surgical History: Surgical History (Last Reviewed 09/14/18 @ 13:22 by Antonio Eubanks MD) S/P prostatectomy Z90.79 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 Denies: Weight Change HEENT: Denies: Head Aches, Sinus Congestion, Sinus Drainage Cardiovascular: Denies: Chest Pain, Palpitations Respiratory: Denies: Cough, Shortness of breath at rest, Sputum production Gastrointestinal: Denies: Abdominal Pain, Nausea, Vomiting Genitourinary: Reports: - - Right CVA tenderness. Denies: Dysuria Musculoskeletal: Denies: Joint Pain, Joint Tenderness Skin: Denies: Rash, Wounds Neurological: Denies: Numbness, Tingling, Focal weakness Psychiatric: Denies: Anxiety, Depression Hematologic/ Lymphatic: Denies: Easy Bruising, Easy Bleeding VTE Information - Inpt Only VTE Present on Admission: No Patient Problems: Active and Suspected Problems (Last Reviewed 09/14/18 @ 13:22 by Antonio Eubanks MD) Sepsis secondary to UTI (Acute) - Physical Exam General: Alert, Oriented x3, Cooperative, No apparent distress HEENT: Atraumatic, PERRLA, EOMI, Normocephalic Oral: Dry Mucosa Neck: Supple, No JVD, Trachea Midline Lungs: Clear to auscultation, Normal air movement, No rhonchi, No wheeze, No rales Cardiovascular: Regular rate, Regular Rhythm, Normal S1, Normal S2, No murmurs Abdomen: Soft, Non Tender, Non-Distended, No Hepato-splenomegaly, - - Right CVA tenderness Extremities: No edema, Capillary Refill Less than 3 Seconds Skin: No rashes, No breakdown Neurological: Neuro grossly intact, Sensory exam intact to light touch and pain Psych/Mental Status: Normal Affect, Appropriate Vital Signs Temp Pulse Resp BP Pulse Ox 101.7 F H 101 H 28 H 119/64 94 12/09/18 03:17 12/09/18 03:17 12/09/18 03:17 12/09/18 03:17 12/09/18 03:17 Oxygen Delivery Method Room Air Weight: 216 lb 0.848 oz Body Mass Index (BMI) 37.0 Laboratory Tests Past 24 Hrs 12/09/18 12/09/18 03:30 03:30 WBC 11.8 H RBC 4.02 L Hgb 11.2 L Hct 35.3 L MCV 87.8 MCH 27.9 MCHC 31.7 L RDW 15.8 H RDW Differential 50.4 H Plt Count 198 MPV 10.6 Immature Gran % (Auto) 0.300 Neut % (Auto) 91.1 H Lymph % (Auto) 5.8 L [place] % (Auto) 2.3 Eos % (Auto) 0.3 Baso % (Auto) 0.2 Absolute Neuts (auto) 10.8 H Absolute Lymphs (auto) 0.69 L Total Counted Not Reportable Lactic Acid 5.2 H* Assessment/Plan All Active Problems (Last Reviewed 09/14/18 @ 13:22 by Antonio Eubanks MD) Sepsis secondary to UTI (Acute) 1. Sepsis secondary to UTI -His initial UA was significant for urinary tract infection and a urine culture was obtained and ordered yesterday. -Ischemic dose of Rocephin in the ER will be transitioned to IV Ancef as it has better urine penetration -He received sepsis bolus in the ER and will continue with IV fluids at 100 cc/h -Repeat lactic acid pending, on admission little over 5 today 2. HTN/HLD/A. fib -Blood pressures are stable, but will hold hypertension medications. -Continue with Lipitor -We will continue with his home Coumadin and will adjust as necessary given that he will be on antibiotics 3. DM2 -He is on metformin at home, which will be held and he will be transitioned to long-acting as well as a sliding scale insulin. DVT: Lovenox Code Visit Inpatient E&M: 38031 Init Hosp L3
[2018-12-09 05:36] LABS: International Normalized Ratio 2.6; Prothrombin Time (Protime)PT. 28.2 SECONDS (11.7-14.9)
[2018-12-09] MEDS: Cefazolin 2 GM in 0.9% Normal Saline 100 ML IV ×3 (06:17→22:53)
[2018-12-09] MEDS: 0.9% Normal Saline 1,000 ML 100 ML IV ×2 (06:17→18:39)
--- NOTE | 2018-12-09 06:34 | ED.RN ---
lab called with positive blood culture results. gram negative rods in anaerobic bottle. Dr. Suresh called and made aware. no new orders at this time. PCU made aware
[2018-12-09 06:51] LABS: Bedside Glucose 148 mg/dL (70-110)
[2018-12-09 07:39] LABS: Reflex Lactate? Y
[2018-12-09 08:19] LABS: Lactic Acid 1.6 mmol/L (0.4-2.0)
[2018-12-09] MEDS: Atorvastatin Calcium 80 MG Tablet PO (08:43)
[2018-12-09 11:25] LABS: Bedside Glucose 186 mg/dL (70-110)
[2018-12-09] MEDS: Insulin Lispro 100 UNIT/ML INSULN.PEN SQ ×2 (11:44→22:49)
--- NOTE | 2018-12-09 12:05 | US_ITS ---
STUDY: RENAL ULTRASOUND - COMPLETE REASON FOR EXAM: Male, 78 years old. Flank pain TECHNIQUE: Ultrasound evaluation of the kidneys was performed with real-time and static raygoza-scale imaging. COMPARISON: None. FINDINGS: RIGHT KIDNEY: Normal location of the right kidney, which is normal in size. The right kidney measures 12.9 x 5.9 x 5.8 cm. There is a normal cortex of the right kidney. The renal cortex measures 2.1 cm. There is a 3.0 cm cyst. There is a 5 mm nonobstructing stone. There is no right hydronephrosis. DISTAL RIGHT URETER: There is non-visualization of the distal right ureter. There is no demonstrated right ureterovesical junction calculus. There is a visualized right ureteral jet. LEFT KIDNEY: Normal location of the left kidney, which is normal in size. The left kidney measures 14 x 5.5 x 5.7 cm. There is a normal cortex of the left kidney. The renal cortex measures 1.8 cm. There is a 4.6 cm cyst. There are no left renal calculi. There is no left hydronephrosis. DISTAL LEFT URETER: There is non-visualization of the distal left ureter. There is no demonstrated left ureterovesical junction calculus. There is a visualized left ureteral jet. AORTA: There is no elongation or tortuosity of the abdominal aorta. I.V.C.: The IVC is patent. BLADDER: The bladder is sonographically normal US/Kidney and Bladder IMPRESSION: Bilateral renal cysts Nonobstructing right nephrolithiasis Electronically Signed: Tonio Vasquez MD at 13:44 EDT , Service support ,
--- NOTE | 2018-12-09 12:14 | PN_ITS ---
<Siobhan Lange - Last Filed: 12/09/18 12:15> Patient Problems: Active and Suspected Problems (Last Reviewed 09/14/18 @ 13:22 by Antonio Eubanks MD) Sepsis secondary to UTI (Acute) Subjective: Patient seen and examined. Reports he feels improved. Fever, chills improved. Denies abdominal pain, flank pain. - Physical Exam General: Alert, Oriented x3, Cooperative HEENT: Atraumatic, PERRLA, EOMI, Normocephalic Neck: Supple, No JVD, Negative Carotid Bruits Lungs: Clear to auscultation, Normal air movement Cardiovascular: Regular rate, Regular Rhythm, Normal S1, Normal S2, No murmurs Abdomen: Bowel Sounds Present, Soft, Non Tender, Non-Distended Extremities: No clubbing, No cyanosis, No edema, Capillary Refill Less than 3 Seconds Skin: No rashes, No breakdown Musculoskeletal: No Tenderness to Palpation of Joints or Extremities Neurological: Cranial nerves II-XII grossly intact, Neuro grossly intact Psych/Mental Status: Normal Affect, Appropriate Vital Signs Temp Pulse Resp BP Pulse Ox 98.1 F 62 16 107/49 L 97 12/09/18 09:30 12/09/18 09:30 12/09/18 09:30 12/09/18 09:30 12/09/18 09:30 Oxygen Delivery Method Room Air Weight: 208 lb 12.444 oz Body Mass Index (BMI) 35.8 Intake and Output for Last 24 Hours 12/07/18 12/08/18 12/09/18 23:59 23:59 23:59 Intake Total 1223 / 1223 Balance 1223 / 1223 Laboratory Tests Past 24 Hrs 12/09/18 12/09/18 12/09/18 03:30 03:30 03:30 WBC 11.8 H RBC 4.02 L Hgb 11.2 L Hct 35.3 L MCV 87.8 MCH 27.9 MCHC 31.7 L RDW 15.8 H RDW Differential 50.4 H Plt Count 198 MPV 10.6 Immature Gran % (Auto) 0.300 Neut % (Auto) 91.1 H Lymph % (Auto) 5.8 L [place] % (Auto) 2.3 Eos % (Auto) 0.3 Baso % (Auto) 0.2 Absolute Neuts (auto) 10.8 H Absolute Lymphs (auto) 0.69 L Total Counted Not Reportable PT 28.2 H INR 2.6 Lactic Acid 5.2 H* 12/09/18 07:45 WBC RBC Hgb Hct MCV MCH MCHC RDW RDW Differential Plt Count MPV Immature Gran % (Auto) Neut % (Auto) Lymph % (Auto) [place] % (Auto) Eos % (Auto) Baso % (Auto) Absolute Neuts (auto) Absolute Lymphs (auto) Total Counted PT INR Lactic Acid 1.6 POC Glucose 12/09/18 12/09/18 11:04 06:46 POC Glucose 186 H 148 H Medical Necessity - Tobacco Use Smoking Status: Never smoker Tobacco Use: Cigarettes Assessment/Plan All Active Problems (Last Reviewed 09/14/18 @ 13:22 by Antonio Eubanks MD) Sepsis secondary to UTI (Acute) 1. Sepsis secondary to acute UTI-urinalysis on admission positive. Patient discharged from ER yesterday with Keflex. Returned with increased fever, chills. Continue IV cefazolin. Urine culture pending. Obtain kidney and bladder ultrasound. 2. Type 2 diabetes mellitus-metformin regimen on hold. Continue Accu-Cheks ACHS with sliding scale insulin. 3. Hypertension-stable, amlodipine, lisinopril, HCTZ regimen held on admission given hypotension/sepsis. 4. Chronic atrial fibrillation-on anticoagulation with Coumadin. INR therapeutic. Rate controlled, not on rate control regimen. 5. Hyperlipidemia-continue statin. 6. Chronic normocytic anemia-stable. DVT prophylaxis-Coumadin This patient was seen by ALEX Brewer under the supervision of Dr. Lal. <Michael Lal - Last Filed: 12/09/18 16:42> Subjective: Seen and examined. Patient is very hard of hearing. Patient was admitted with fever chill. He had a right para sacral region pain suggestive of paravertebral muscular pain. Denies previous history of urinary stone or passage of his stone. No hematuria. - Physical Exam General: Alert, Oriented x3, Cooperative HEENT: Atraumatic, PERRLA, EOMI, Normocephalic, - - Very hard of hearing. Oral: - Neck: Supple, No JVD, Negative Carotid Bruits Lungs: Clear to auscultation, Normal air movement, No rhonchi, No wheeze, No rales Cardiovascular: Regular rate, Regular Rhythm, Normal S1, Normal S2, No murmurs Abdomen: Bowel Sounds Present, Soft, Non Tender, Non-Distended, - - No renal angle tenderness or fullness. Extremities: No edema, Capillary Refill Less than 3 Seconds Skin: No rashes, No breakdown Musculoskeletal: No Tenderness to Palpation of Joints or Extremities - No tenderness of right sacral paravertebral muscle, Arthritic Changes Lymphatic: No Cervical, Supraclavicular, or Inguinal Adenopathy Neurological: Cranial nerves II-XII grossly intact, Deep Tendon Reflexes 2+/4 and Symmetrical, Neuro grossly intact Psych/Mental Status: Normal Affect, Appropriate Vital Signs Temp Pulse Resp BP Pulse Ox 98.1 F 60 16 107/49 L 97 12/09/18 09:30 12/09/18 13:06 12/09/18 09:30 12/09/18 09:30 12/09/18 09:30 Oxygen Delivery Method Room Air Weight: 208 lb 12.444 oz Body Mass Index (BMI) 35.8 Intake and Output for Last 24 Hours 12/07/18 12/08/18 12/09/18 23:59 23:59 23:59 Intake Total 1223 / 1223 Balance 1223 / 1223 Laboratory Tests Past 24 Hrs 12/09/18 12/09/18 12/09/18 03:30 03:30 03:30 WBC 11.8 H RBC 4.02 L Hgb 11.2 L Hct 35.3 L MCV 87.8 MCH 27.9 MCHC 31.7 L RDW 15.8 H RDW Differential 50.4 H Plt Count 198 MPV 10.6 Immature Gran % (Auto) 0.300 Neut % (Auto) 91.1 H Lymph % (Auto) 5.8 L [place] % (Auto) 2.3 Eos % (Auto) 0.3 Baso % (Auto) 0.2 Absolute Neuts (auto) 10.8 H Absolute Lymphs (auto) 0.69 L Total Counted Not Reportable PT 28.2 H INR 2.6 Lactic Acid 5.2 H* 12/09/18 07:45 WBC RBC Hgb Hct MCV MCH MCHC RDW RDW Differential Plt Count MPV Immature Gran % (Auto) Neut % (Auto) Lymph % (Auto) [place] % (Auto) Eos % (Auto) Baso % (Auto) Absolute Neuts (auto) Absolute Lymphs (auto) Total Counted PT INR Lactic Acid 1.6 POC Glucose 12/09/18 12/09/18 12/09/18 16:11 11:04 06:46 POC Glucose 149 H 186 H 148 H Assessment/Plan This patient was seen in conjunction with Siobhan DORSEY. I have independently interviewed and examined the patient and reviewed pertinent history, examination findings, laboratory and plan of management. I have reviewed the note and agree with the documented findings with the few additional points. In brief, patient is admitted for fever, chills and UA suggestive of UTI. Patient also had fever, lactic acid 5.2, leukocytosis with left shift suggestive of sepsis secondary to UTI. On IV cefazolin. Urine culture is pending. Renal ultrasound shows bilateral renal cyst but nonobstructing right nephrolithiasis. Normal cortex of right and left kidney. 5 mm nonobstructive stone in right kidney but no hydronephrosis. Bladder is normal. I have discussed my assessment with Siobhan DORSEY and orders have been reviewed. Clinical Impression(s) from Imaging Studies Renal Ultrasound 12/09/18 12:05 IMPRESSION: Bilateral renal cysts Nonobstructing right nephrolithiasis Code Visit Inpatient E&M: 82627 Subs Hosp L2
--- NOTE | 2018-12-09 14:16 | CASEMGMT ---
MATILDE WINTERS assessment: Face to Face with patient for initial transition planning/care coordination assessment. MATILDE WINTERS introduced self and role at [facility], pt voices understanding and consents to assessment at this time. Pt is sitting up in bed in no distress at this time. Pt is A/Ox4 at this time and answers all questions appropriately at this time. Pt is hard of hearing. Care providers, pharmacy, and demographics verified at this time. PCP: Natesa Specialists: katiana Eubanks Preferred [facility]acy: [facility] Insurance: [facility] A/B, AARP Prescription Benefit: Yes Living Will/HPOA: Pt states does not have LW/HPOA but does have paperwork at home already to complete and states will have to take care of it with his . LNOK: Heydi Palmer, ; Paras Palmer, son Living Arrangements: Pt states lives with in mobile home with ramp and states no concerns at home at this time. Pt states is independent with ADL's. Transportation: Pt states drives self and states no transportation concerns at this time. DME/HHC: Pt states has no current DME or need for any at this time. Pt states no hx of HHC or SNF in the past. Pt states no concerns with going home at time of discharge. Pt is retired. Pt states does not smoke or drink ETOH. Pt states no further concerns/needs at this time. CM to follow for any further discharge planning/needs. Advised pt to ask for CM if any further questions/concerns/needs arise, voices understanding. Pt Goal: Home Plan[place] MATILDE WINTERS
[2018-12-09 16:16] LABS: Bedside Glucose 149 mg/dL (70-110)
[2018-12-09 22:56] LABS: Bedside Glucose 159 mg/dL (70-110)
[2018-12-10] VITALS (14 sets, daily range): BP systolic 111–158; BP diastolic 52–92; PULSE 60–90; RESP 16–20; TEMP 36.6–37.4; O2SAT 92–97
[2018-12-10] MEDS: Cefazolin 2 GM in 0.9% Normal Saline 100 ML IV ×3 (05:04→21:30)
[2018-12-10] MEDS: 0.9% Normal Saline 1,000 ML 100 ML IV ×2 (05:04→21:29)
[2018-12-10 05:43] LABS: Absolute Lymphocyte Count 1.77 X10^3/ul (0.83-4.51); Absolute Neutrophil Count 8.5 X10^3/uL (2.0-7.7); Basophil# 0.03 X10^3/uL; Basophil% 0.3 % (0-1); Eosinophil# 0.09 X10^3/uL; Eosinophils% 0.8 % (0-5); Hematocrit 32.4 % (40-54); Lymphocyte # 1.77 X10^3/ul (4.0); Lymphocyte % 15.4 % (19-41); Mean Corp Hgb Conc 30.9 g/gl (32-36); Mean Corpuscular Volume 87.6 fL (80-94); Mean Platelet Vol. 10.9 fl (6.2-12.0); Monocyte# 1.16 X10^3/uL; Monocyte% 10.1 % (0-10); Neutrophil # 8.46 X10^3/uL (2.7-7.7); Neutrophil % 73.2 % (47-70); Platelet Count 174 K/mm3 (150-450); RBC Distribution Width SD 49.8 fl (35.1-43.9); White Blood Count 11.5 K/mm3 (4.4-11.0)
[2018-12-10 05:44] LABS: Differential Indicated SCAN CRITERIA MET; POSITIVE COUNT NO; POSITIVE DIFFERENTIAL NO; POSITIVE MORPHOLOGY YES
[2018-12-10 05:47] LABS: International Normalized Ratio 2.9; Prothrombin Time (Protime)PT. 30.7 SECONDS (11.7-14.9)
[2018-12-10 05:59] LABS: Anion Gap 8 (5-15); BUN 21 mg/dL (7-18); BUN/Creat Ratio 17.9 RATIO (10-20); Calcium,Total 8.4 mg/dL (8.5-10.1); Chloride 108 mmol/L (98-107); Creatinine, Serum 1.17 mg/dL (0.70-1.30); EST Glomerular Filtration Rate 64 mL/min (>60); Est Glom Filt Rate - Afr Amer 78 mL/min (>60); Estimated Creatinine Clearance 44.98 ml/min; Glucose 143 mg/dL (74-106); Potassium 3.9 mmol/L (3.5-5.1); Sodium Level 140 mmol/L (136-145)
[2018-12-10 07:01] LABS: Bedside Glucose 147 mg/dL (70-110)
[2018-12-10] MEDS: Acetaminophen 325 MG Tablet 650 MG PO (08:01)
[2018-12-10] MEDS: Atorvastatin Calcium 80 MG Tablet PO (08:01)
[2018-12-10 11:05] LABS: Bedside Glucose 265 mg/dL (70-110)
[2018-12-10] MEDS: Insulin Lispro 100 UNIT/ML INSULN.PEN SQ ×3 (11:08→21:35)
--- NOTE | 2018-12-10 14:18 | PN_ITS ---
<Siobhan Lange - Last Filed: 12/10/18 14:18> Patient Problems: Active and Suspected Problems (Last Reviewed 09/14/18 @ 13:22 by Antonio Eubanks MD) Sepsis secondary to UTI (Acute) Subjective: Patient seen and examined. Feels improved. Intermittent fever although improved. Denies other current complaints. - Physical Exam General: Alert, Oriented x3, Cooperative HEENT: Atraumatic, PERRLA, EOMI, Normocephalic Neck: Supple, No JVD, Negative Carotid Bruits Lungs: Clear to auscultation, Normal air movement Cardiovascular: Regular rate, Regular Rhythm, Normal S1, Normal S2, No murmurs Abdomen: Bowel Sounds Present, Soft, Non Tender, Non-Distended Extremities: No clubbing, No cyanosis, No edema, Capillary Refill Less than 3 Seconds Skin: No rashes, No breakdown Musculoskeletal: No Tenderness to Palpation of Joints or Extremities Neurological: Cranial nerves II-XII grossly intact, Neuro grossly intact Psych/Mental Status: Normal Affect, Appropriate Vital Signs Temp Pulse Resp BP Pulse Ox 98.1 F 63 16 111/52 L 97 12/10/18 12:34 12/10/18 12:37 12/10/18 12:34 12/10/18 12:34 12/10/18 12:34 Oxygen Delivery Method Room Air Weight: 208 lb 12.444 oz Body Mass Index (BMI) 35.8 Intake and Output for Last 24 Hours 12/08/18 12/09/18 12/10/18 23:59 23:59 23:59 Intake Total 2365 / 2365 1866 / 1866 Output Total 375 / 375 Balance 2365 / 2365 1491 / 1491 Laboratory Tests Past 24 Hrs 12/10/18 12/10/18 12/10/18 05:15 05:15 05:15 WBC 11.5 H RBC 3.70 L Hgb 10.0 L Hct 32.4 L MCV 87.6 MCH 27.0 MCHC 30.9 L RDW 16.0 H RDW Differential 49.8 H Plt Count 174 MPV 10.9 Immature Gran % (Auto) 0.200 Neut % (Auto) 73.2 H Lymph % (Auto) 15.4 L [place] % (Auto) 10.1 H Eos % (Auto) 0.8 Baso % (Auto) 0.3 Absolute Neuts (auto) 8.5 H Absolute Lymphs (auto) 1.77 Total Counted Not Reportable PT 30.7 H INR 2.9 Sodium 140 Potassium 3.9 Chloride 108 H Carbon Dioxide 24.0 Anion Gap 8 BUN 21 H Creatinine 1.17 Estim Creat Clear Calc 44.98 Est GFR (MDRD) Af Amer 78 Est GFR (MDRD) Non-Af 64 BUN/Creatinine Ratio 17.9 Glucose 143 H Calcium 8.4 L POC Glucose 12/10/18 12/10/18 12/09/18 11:03 06:53 22:48 POC Glucose 265 H 147 H 159 H 12/09/18 16:11 POC Glucose 149 H Medical Necessity - Tobacco Use Smoking Status: Never smoker Tobacco Use: Cigarettes Assessment/Plan All Active Problems (Last Reviewed 09/14/18 @ 13:22 by Antonio Eubanks MD) Sepsis secondary to UTI (Acute) 1. Sepsis secondary to acute presumptive E. coli UTI with associated gram- negative kinjal bacteremia-urinalysis on admission positive. Patient discharged from ER 12/09/18 with Keflex. Returned with increased fever, chills. Continue IV cefazolin. Urine culture with presumptive E. coli. Kidney and bladder ultrasound shows bilateral renal cyst, nonobstructing right nephrolithiasis with 5 mm nonobstructing stone. Repeat blood cultures drawn today. If patient remains afebrile overnight anticipate discharge tomorrow. Will follow repeat blood cultures. 2. Type 2 diabetes mellitus-metformin regimen on hold. Continue Accu-Cheks ACHS with sliding scale insulin. 3. Hypertension-stable, continue home amlodipine, lisinopril, HCTZ regimen. 4. Chronic atrial fibrillation-on anticoagulation with Coumadin. INR therapeutic. Rate controlled, not on rate control regimen. 5. Hyperlipidemia-continue statin. 6. Chronic normocytic anemia-stable. DVT prophylaxis-Coumadin This patient was seen by ALEX Brewer under the supervision of Dr. Lal. <Michael Lal - Last Filed: 12/10/18 16:07> Subjective: Had low-grade temperature T-max 100.6 Fahrenheit last night but overall feels good. No tachycardia. Blood culture from ER shows gram-negative kinjal, lactose certified prosthetist. Urine culture E. coli. It is sensitive to ceftriaxone. - Physical Exam General: Alert, Oriented x3, Cooperative HEENT: Atraumatic, PERRLA, EOMI, Normocephalic, - - Hard of hearing Oral: - Neck: Supple, No JVD, Negative Carotid Bruits Lungs: Clear to auscultation, Normal air movement, No wheeze Cardiovascular: Regular rate, Regular Rhythm, Normal S1, Normal S2, No murmurs Abdomen: Bowel Sounds Present, Soft, Non Tender, Non-Distended Extremities: No edema, Capillary Refill Less than 3 Seconds Skin: No rashes, No breakdown Musculoskeletal: No Tenderness to Palpation of Joints or Extremities, Arthritic Changes Neurological: Cranial nerves II-XII grossly intact, Deep Tendon Reflexes 2+/4 and Symmetrical, Neuro grossly intact Psych/Mental Status: Normal Affect, Appropriate Vital Signs Temp Pulse Resp BP Pulse Ox 98.1 F 70 16 111/52 L 97 12/10/18 12:34 12/10/18 15:48 12/10/18 12:34 12/10/18 12:34 12/10/18 12:34 Oxygen Delivery Method Room Air Weight: 208 lb 12.444 oz Body Mass Index (BMI) 35.8 Intake and Output for Last 24 Hours 12/08/18 12/09/18 12/10/18 23:59 23:59 23:59 Intake Total 2365 / 2365 1866 / 1866 Output Total 375 / 375 Balance 2365 / 2365 1491 / 1491 Laboratory Tests Past 24 Hrs 12/10/18 12/10/18 12/10/18 05:15 05:15 05:15 WBC 11.5 H RBC 3.70 L Hgb 10.0 L Hct 32.4 L MCV 87.6 MCH 27.0 MCHC 30.9 L RDW 16.0 H RDW Differential 49.8 H Plt Count 174 MPV 10.9 Immature Gran % (Auto) 0.200 Neut % (Auto) 73.2 H Lymph % (Auto) 15.4 L [place] % (Auto) 10.1 H Eos % (Auto) 0.8 Baso % (Auto) 0.3 Absolute Neuts (auto) 8.5 H Absolute Lymphs (auto) 1.77 Total Counted Not Reportable PT 30.7 H INR 2.9 Sodium 140 Potassium 3.9 Chloride 108 H Carbon Dioxide 24.0 Anion Gap 8 BUN 21 H Creatinine 1.17 Estim Creat Clear Calc 44.98 Est GFR (MDRD) Af Amer 78 Est GFR (MDRD) Non-Af 64 BUN/Creatinine Ratio 17.9 Glucose 143 H Calcium 8.4 L POC Glucose 12/10/18 12/10/18 12/09/18 11:03 06:53 22:48 POC Glucose 265 H 147 H 159 H 12/09/18 16:11 POC Glucose 149 H Assessment/Plan This patient was seen in conjunction with Siobhan DORSEY. I have independently interviewed and examined the patient and reviewed pertinent history, examination findings, laboratory and plan of management. I have reviewed the note and agree with the documented findings with the few additional points. In brief, patient is admitted for fever, chills and UA suggestive of E. coli cystitis with bacteremia. Urine culture shows E. coli. Blood cultures x2 is gram-negative kinjal lactose certified prosthetist. Patient also had fever, lactic acid 5.2, leukocytosis with left shift suggestive of sepsis secondary to UTI. On IV cefazolin. Renal ultrasound shows bilateral renal cyst but nonobstructing right nephrolithiasis. Normal cortex of right and left kidney. 5 mm nonobstructive stone in right kidney but no hydronephrosis. Bladder is normal. Patient still gets intermittent fever. Repeat blood cultures x1 ordered. Culture is negative for 48 hours, patient can be discharged with total of 10 days of antibiotics I have discussed my assessment with Siobhan DORSEY and orders have been reviewed. Clinical Impression(s) from Imaging Studies Renal Ultrasound 12/09/18 12:05 IMPRESSION: Bilateral renal cysts Nonobstructing right nephrolithiasis Code Visit Inpatient E&M: 39096 Subs Hosp L2
[2018-12-10 16:30] LABS: Bedside Glucose 157 mg/dL (70-110)
[2018-12-10 21:41] LABS: Bedside Glucose 222 mg/dL (70-110)
[2018-12-11 00:30] VITALS: BP 163/74; PULSE 70; RESP 20; TEMP 37.8; O2SAT 97
[2018-12-11] MEDS: Cefazolin 2 GM in 0.9% Normal Saline 100 ML IV (05:29)
[2018-12-11] MEDS: 0.9% Normal Saline 1,000 ML 100 ML IV (05:29)
[2018-12-11 05:30] VITALS: BP 180/77; PULSE 74; RESP 21; TEMP 37.5; O2SAT 97
[2018-12-11 06:36] VITALS: BP 152/64; PULSE 66
[2018-12-11 07:15] LABS: Bedside Glucose 161 mg/dL (70-110)
[2018-12-11 07:40] VITALS: PULSE 70
[2018-12-11 07:49] LABS: Hematocrit 31.1 % (40-54); Hemoglobin 9.7 g/dl (13.0-16.5); Mean Corp Hgb Conc 31.2 g/gl (32-36); Mean Corpuscular Hgb 27.4 pg (27.0-32.0); Mean Corpuscular Volume 87.9 fL (80-94); Mean Platelet Vol. 11.1 fl (6.2-12.0); Platelet Count 166 K/mm3 (150-450); RBC Distribution Width SD 51.7 fl (35.1-43.9); Red Blood Count 3.54 M/mm3 (4.6-6.2); White Blood Count 8.7 K/mm3 (4.4-11.0)
[2018-12-11 08:02] LABS: Scan Indicated on CBC? Y/N NO
[2018-12-11 08:05] LABS: International Normalized Ratio 3.1; Prothrombin Time (Protime)PT. 32.2 SECONDS (11.7-14.9)
[2018-12-11] MEDS: Insulin Lispro 100 UNIT/ML INSULN.PEN SQ ×2 (08:45→11:30)
[2018-12-11] MEDS: Acetaminophen 325 MG Tablet 650 MG PO (08:46)
[2018-12-11] MEDS: Atorvastatin Calcium 80 MG Tablet PO (08:46)
[2018-12-11] MEDS: Lisinopril 20 MG Tablet PO (08:46)
[2018-12-11] MEDS: hydroCHLOROthiazide 25 MG Tablet PO (08:46)
[2018-12-11] MEDS: amLODIPine 10 MG Tablet PO (08:46)
[2018-12-11 10:14] VITALS: BP 196/82; PULSE 66; RESP 18; TEMP 37; O2SAT 93
--- NOTE | 2018-12-11 11:30 | DCINST_ITS ---
- Discharge Diagnoses Current Active Problems: Current Active and Chronic Problems (Last Reviewed 09/14/18 @ 13:22 by Antonio Eubanks MD) Sepsis secondary to UTI (Acute) You will use the following diet at home:: Cardiac Discharge Activity: Return to Normal Activity Call your doctor if you observe: Shortness of breath, Dizziness, Fainting spells, Chest pain Allergies/Adverse Reactions: Allergies No Known Allergies Allergy (Verified 12/09/18 05:24) Medications to take at Discharge Multivitamins,Therapeutic [Multivitamin] 1 tab PO DAILY 10/21/13 acetaminophen 325 mg tablet 650 mg PO DAILY tab 09/09/17 atorvastatin 80 mg tablet 80 mg PO QDAY 09/09/17 cyanocobalamin (vit B-12) 100 mcg tablet 100 mcg PO QDAY 09/09/17 metformin 1,000 mg tablet 1,000 mg PO BID 09/15/17 lisinopril 20 mg tablet 20 mg PO QDAY tab 03/15/18 Amlodipine Besylate [Norvasc] 10 mg PO QDAY 12/09/18 Hydrochlorothiazide [Hctz] 25 mg PO QDAY 12/09/18 Warfarin Sodium [Coumadin] 3 mg PO .COMPLEX 12/09/18 Warfarin Sodium [Coumadin] 4 mg PO .COMPLEX 12/09/18 Cephalexin [Keflex] 500 mg PO Q6 #32 capsule 12/11/18 The following prescriptions were given: Cephalexin [Keflex] 500 mg PO Q6 #32 capsule Primary Care Physician: Yoon Alba NP-C [Primary Care Provider] - Please follow up with your Primary Care Physician in: 1 Week Test Results: Test results from this visit will be discussed in further detail at your follow- up appointment, if applicable. Proposed Discharge Date: 12/11/18
[2018-12-11 11:36] LABS: Bedside Glucose 204 mg/dL (70-110)
--- NOTE | 2018-12-11 13:47 | PCM.DC.SUM ---
<Siobhan Lange - Last Filed: 12/11/18 14:11> Discharge Date and Diagnosis Date of Admission: 12/09/18 Date of Discharge: 12/11/18 - Primary Discharge Diagnosis 1. Sepsis secondary to acute E. coli UTI with associated e.coli bacteremia 2. Type 2 diabetes mellitus 3. Hypertension 4. Chronic atrial fibrillation 5. Hyperlipidemia 6. 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 1. Sepsis secondary to acute E. coli UTI with associated e.coli bacteremia-urinalysis on admission positive. Patient discharged from ER 12/09/18 with Keflex. Returned with increased fever, chills. Received IV cefazolin during admission. Urine culture with presumptive E. coli. Kidney and bladder ultrasound shows bilateral renal cyst, nonobstructing right nephrolithiasis with 5 mm nonobstructing stone. Repeat blood cultures pending. Discharge on cephalexin 500 mg p.o. every 6H for total of 10 days of antibiotic therapy. Follow-up with primary care physician in 1 week. Recommend referral to urology if patient has flank pain or further urology issues. 2. Type 2 diabetes mellitus-continue home regimen. 3. Hypertension-stable, continue home amlodipine, lisinopril, HCTZ regimen. 4. Chronic atrial fibrillation-on anticoagulation with Coumadin. INR therapeutic. Rate controlled, not on rate control regimen. 5. Hyperlipidemia-continue statin. 6. Chronic normocytic anemia-stable. General: Alert, Oriented x3, Cooperative HEENT: Atraumatic, PERRLA, EOMI, Normocephalic Neck: Supple, No JVD, Negative Carotid Bruits Lungs: Clear to auscultation, Normal air movement Cardiovascular: Regular rate, Regular Rhythm, Normal S1, Normal S2, No murmurs Abdomen: Bowel Sounds Present, Soft, Non Tender, Non-Distended Extremities: No clubbing, No cyanosis, No edema, Capillary Refill Less than 3 Seconds Skin: No rashes, No breakdown Musculoskeletal: No Tenderness to Palpation of Joints or Extremities Neurological: Cranial nerves II-XII grossly intact, Neuro grossly intact Psych/Mental Status: Normal Affect, Appropriate Patient seen and examined prior to discharge. Physical assessment as noted above. Patient is stable for discharge with follow up recommendations as noted above. This patient was seen by ALEX Brewer under the supervision of Dr. Arevalo. - Physical Exam Vital Signs Temp Pulse Resp BP Pulse Ox 98.6 F 66 18 196/82 H 93 12/11/18 10:14 12/11/18 10:14 12/11/18 10:14 12/11/18 10:14 12/11/18 10:14 Oxygen Delivery Method Room Air Weight: 208 lb 12.444 oz Body Mass Index (BMI) 35.8 Intake and Output for Last 24 Hours 12/09/18 12/10/18 12/11/18 23:59 23:59 23:59 Intake Total 2365 / 2365 2786 / 2786 1051 / 1051 Output Total 375 / 375 700 / 700 Balance 2365 / 2365 2411 / 2411 351 / 351 Laboratory Tests Past 24 Hrs 12/11/18 12/11/18 06:45 06:45 WBC 8.7 RBC 3.54 L Hgb 9.7 L Hct 31.1 L MCV 87.9 MCH 27.4 MCHC 31.2 L RDW 16.0 H RDW Differential 51.7 H Plt Count 166 MPV 11.1 PT 32.2 H INR 3.1 POC Glucose 12/11/18 12/11/18 12/10/18 11:28 07:06 21:33 POC Glucose 204 H 161 H 222 H 12/10/18 16:13 POC Glucose 157 H Discharge Diet: Low fat/ Low Cholesterol Discharge Activity: Return to Normal Activity Call your doctor if you observe: Shortness of breath, Dizziness, Fainting spells, Chest pain Home Medications: Medications to take at Discharge Multivitamins,Therapeutic [Multivitamin] 1 tab PO DAILY 10/21/13 acetaminophen 325 mg tablet 650 mg PO DAILY tab 09/09/17 atorvastatin 80 mg tablet 80 mg PO QDAY 09/09/17 cyanocobalamin (vit B-12) 100 mcg tablet 100 mcg PO QDAY 09/09/17 metformin 1,000 mg tablet 1,000 mg PO BID 09/15/17 lisinopril 20 mg tablet 20 mg PO QDAY tab 03/15/18 Amlodipine Besylate [Norvasc] 10 mg PO QDAY 12/09/18 Hydrochlorothiazide [Hctz] 25 mg PO QDAY 12/09/18 Warfarin Sodium [Coumadin] 3 mg PO .COMPLEX 12/09/18 Warfarin Sodium [Coumadin] 4 mg PO .COMPLEX 12/09/18 Cephalexin [Keflex] 500 mg PO Q6 #32 capsule 12/11/18 Following Prescrptions Were Given to Patient: Cephalexin [Keflex] 500 mg PO Q6 #32 capsule Primary Care Physician: Yoon Alba NP-C [Primary Care Provider] - Please follow up with your Primary Care Physician in: 1 Week Disposition: Home Minutes spent on discharge:: 35 Patient Condition:: Stable Medical Necessity - Tobacco Use Smoking Status: Never smoker Tobacco Use: Cigarettes Meaningful Use Info Meaningful Use Diagnoses (Choose all that apply): None applicable <MickeyPeacepanchito Jacobson - Last Filed: 12/11/18 14:49> Discharge Date and Diagnosis - Secondary Discharge Diagnosis Chronic Problems (Last Reviewed 09/14/18 @ 13:22 by Antonio Eubanks MD) Atrial fibrillation (Chronic) Diabetes mellitus, type II (Chronic) Hyperlipidemia (Chronic) Hypertension (Chronic) Dyspnea on exertion (Chronic) History of stroke (Chronic) 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 He had had onset of nausea and vomiting. On initial presentation to the ED he was diagnosed with UTI and discharged home. At home, his fever spiked and he had more significant rigors and chills and so he was brought back to the ED where he was noted to have elevated lactic acid of around 5 with white cell count of 11.8. He was also tachypneic and tachycardic. He was admitted and managed for sepsis due to UTI. Was initially started on IV Rocephin and this was transitioned to IV cefazolin. Renal ultrasound showed bilateral renal cysts and nonobstructing right nephrolithiasis. Urine culture with E. coli. Blood cultured gram-negative rods probably E. coli. SIRS criteria resolved and patient improved significantly. He was discharged home on 12/11/2018 with a prescription for p.o. Keflex. Repeat blood cultures were pending at the time of discharge. Is to follow-up with his primary care doctor within 1 week. Patient seen and examined prior to discharge. He had no complaints of felt well and was eager to be discharged. Review of systems otherwise negative. Labs and vitals reviewed. Home medications reviewed and reconciled. Vital Signs Height 5 ft 4 in Weight: 208 lb 12.444 oz Weight in Pounds 208.8 lbs Pulse Ox 93 Temperature 98.6 F Pulse Rate 66 Respiratory Rate 18 Blood Pressure [2nd BP] 152/64 Blood Pressure 196/82 Blood Pressure Position [2nd Semi-Fowlers BP] Blood Pressure Position Semi-Fowlers General: Alert, Oriented x3, Cooperative HEENT: Atraumatic, PERRLA, EOMI, Normocephalic Neck: Supple, No JVD, Negative Carotid Bruits Lungs: Clear to auscultation, Normal air movement Cardiovascular: Regular rate, Regular Rhythm, Normal S1, Normal S2, No murmurs Abdomen: Bowel Sounds Present, Soft, Non Tender, Non-Distended Extremities: No clubbing, No cyanosis, No edema, Capillary Refill Less than 3 Seconds Skin: No rashes, No breakdown Musculoskeletal: No Tenderness to Palpation of Joints or Extremities Neurological: Cranial nerves II-XII grossly intact, Neuro grossly intact Psych/Mental Status: Normal Affect, Appropriate [] - Physical Exam Vital Signs Temp Pulse Resp BP Pulse Ox 98.6 F 66 18 196/82 H 93 12/11/18 10:14 12/11/18 10:14 12/11/18 10:14 12/11/18 10:14 12/11/18 10:14 Oxygen Delivery Method Room Air Weight: 208 lb 12.444 oz Body Mass Index (BMI) 35.8 Intake and Output for Last 24 Hours 12/09/18 12/10/18 12/11/18 23:59 23:59 23:59 Intake Total 2365 / 2365 2786 / 2786 1051 / 1051 Output Total 375 / 375 700 / 700 Balance 2365 / 2365 2411 / 2411 351 / 351 Laboratory Tests Past 24 Hrs 12/11/18 12/11/18 06:45 06:45 WBC 8.7 RBC 3.54 L Hgb 9.7 L Hct 31.1 L MCV 87.9 MCH 27.4 MCHC 31.2 L RDW 16.0 H RDW Differential 51.7 H Plt Count 166 MPV 11.1 PT 32.2 H INR 3.1 POC Glucose 12/11/18 12/11/18 12/10/18 11:28 07:06 21:33 POC Glucose 204 H 161 H 222 H 12/10/18 16:13 POC Glucose 157 H Code Visit Inpatient E&M: 92326 Disch Hosp
--- NOTE | 2018-12-11 14:07 | DS.PCM_ITS ---
<Siobhan Lange - Last Filed: 12/11/18 14:11> Discharge Date and Diagnosis Date of Admission: 12/09/18 Date of Discharge: 12/11/18 - Primary Discharge Diagnosis 1. Sepsis secondary to acute E. coli UTI with associated e.coli bacteremia 2. Type 2 diabetes mellitus 3. Hypertension 4. Chronic atrial fibrillation 5. Hyperlipidemia 6. 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 1. Sepsis secondary to acute E. coli UTI with associated e.coli bacteremia- urinalysis on admission positive. Patient discharged from ER 12/09/18 with Keflex. Returned with increased fever, chills. Received IV cefazolin during admission. Urine culture with presumptive E. coli. Kidney and bladder ultrasound shows bilateral renal cyst, nonobstructing right nephrolithiasis with 5 mm nonobstructing stone. Repeat blood cultures pending. Discharge on cephalexin 500 mg p.o. every 6H for total of 10 days of antibiotic therapy. Follow-up with primary care physician in 1 week. Recommend referral to urology if patient has flank pain or further urology issues. 2. Type 2 diabetes mellitus-continue home regimen. 3. Hypertension-stable, continue home amlodipine, lisinopril, HCTZ regimen. 4. Chronic atrial fibrillation-on anticoagulation with Coumadin. INR therapeutic. Rate controlled, not on rate control regimen. 5. Hyperlipidemia-continue statin. 6. Chronic normocytic anemia-stable. General: Alert, Oriented x3, Cooperative HEENT: Atraumatic, PERRLA, EOMI, Normocephalic Neck: Supple, No JVD, Negative Carotid Bruits Lungs: Clear to auscultation, Normal air movement Cardiovascular: Regular rate, Regular Rhythm, Normal S1, Normal S2, No murmurs Abdomen: Bowel Sounds Present, Soft, Non Tender, Non-Distended Extremities: No clubbing, No cyanosis, No edema, Capillary Refill Less than 3 Seconds Skin: No rashes, No breakdown Musculoskeletal: No Tenderness to Palpation of Joints or Extremities Neurological: Cranial nerves II-XII grossly intact, Neuro grossly intact Psych/Mental Status: Normal Affect, Appropriate Patient seen and examined prior to discharge. Physical assessment as noted above. Patient is stable for discharge with follow up recommendations as noted above. This patient was seen by ALEX Brewer under the supervision of Dr. Arevalo. - Physical Exam Vital Signs Temp Pulse Resp BP Pulse Ox 98.6 F 66 18 196/82 H 93 12/11/18 10:14 12/11/18 10:14 12/11/18 10:14 12/11/18 10:14 12/11/18 10:14 Oxygen Delivery Method Room Air Weight: 208 lb 12.444 oz Body Mass Index (BMI) 35.8 Intake and Output for Last 24 Hours 12/09/18 12/10/18 12/11/18 23:59 23:59 23:59 Intake Total 2365 / 2365 2786 / 2786 1051 / 1051 Output Total 375 / 375 700 / 700 Balance 2365 / 2365 2411 / 2411 351 / 351 Laboratory Tests Past 24 Hrs 12/11/18 12/11/18 06:45 06:45 WBC 8.7 RBC 3.54 L Hgb 9.7 L Hct 31.1 L MCV 87.9 MCH 27.4 MCHC 31.2 L RDW 16.0 H RDW Differential 51.7 H Plt Count 166 MPV 11.1 PT 32.2 H INR 3.1 POC Glucose 12/11/18 12/11/18 12/10/18 11:28 07:06 21:33 POC Glucose 204 H 161 H 222 H 12/10/18 16:13 POC Glucose 157 H Discharge Diet: Low fat/ Low Cholesterol Discharge Activity: Return to Normal Activity Call your doctor if you observe: Shortness of breath, Dizziness, Fainting spells, Chest pain Home Medications: Medications to take at Discharge Multivitamins,Therapeutic [Multivitamin] 1 tab PO DAILY 10/21/13 acetaminophen 325 mg tablet 650 mg PO DAILY tab 09/09/17 atorvastatin 80 mg tablet 80 mg PO QDAY 09/09/17 cyanocobalamin (vit B-12) 100 mcg tablet 100 mcg PO QDAY 09/09/17 metformin 1,000 mg tablet 1,000 mg PO BID 09/15/17 lisinopril 20 mg tablet 20 mg PO QDAY tab 03/15/18 Amlodipine Besylate [Norvasc] 10 mg PO QDAY 12/09/18 Hydrochlorothiazide [Hctz] 25 mg PO QDAY 12/09/18 Warfarin Sodium [Coumadin] 3 mg PO .COMPLEX 12/09/18 Warfarin Sodium [Coumadin] 4 mg PO .COMPLEX 12/09/18 Cephalexin [Keflex] 500 mg PO Q6 #32 capsule 12/11/18 Following Prescrptions Were Given to Patient: Cephalexin [Keflex] 500 mg PO Q6 #32 capsule Primary Care Physician: Yoon Alba NP-C [Primary Care Provider] - Please follow up with your Primary Care Physician in: 1 Week Disposition: Home Minutes spent on discharge:: 35 Patient Condition:: Stable Medical Necessity - Tobacco Use Smoking Status: Never smoker Tobacco Use: Cigarettes Meaningful Use Info Meaningful Use Diagnoses (Choose all that apply): None applicable <MickeyPeacepanchito Jacobson - Last Filed: 12/11/18 14:49> Discharge Date and Diagnosis - Secondary Discharge Diagnosis Chronic Problems (Last Reviewed 09/14/18 @ 13:22 by Antonio Eubanks MD) Atrial fibrillation (Chronic) Diabetes mellitus, type II (Chronic) Hyperlipidemia (Chronic) Hypertension (Chronic) Dyspnea on exertion (Chronic) History of stroke (Chronic) 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 He had had onset of nausea and vomiting. On initial presentation to the ED he was diagnosed with UTI and discharged home. At home, his fever spiked and he had more significant rigors and chills and so he was brought back to the ED where he was noted to have elevated lactic acid of around 5 with white cell count of 11.8. He was also tachypneic and tachycardic. He was admitted and managed for sepsis due to UTI. Was initially started on IV Rocephin and this was transitioned to IV cefazolin. Renal ultrasound showed bilateral renal cysts and nonobstructing right nephrolithiasis. Urine culture with E. coli. Blood cultured gram-negative rods probably E. coli. SIRS criteria resolved and patient improved significantly. He was discharged home on 12/11/2018 with a prescription for p.o. Keflex. Repeat blood cultures were pending at the time of discharge. Is to follow-up with his primary care doctor within 1 week. Patient seen and examined prior to discharge. He had no complaints of felt well and was eager to be discharged. Review of systems otherwise negative. Labs and vitals reviewed. Home medications reviewed and reconciled. Vital Signs Height 5 ft 4 in Weight: 208 lb 12.444 oz Weight in Pounds 208.8 lbs Pulse Ox 93 Temperature 98.6 F Pulse Rate 66 Respiratory Rate 18 Blood Pressure [2nd BP] 152/64 Blood Pressure 196/82 Blood Pressure Position [2nd Semi-Fowlers BP] Blood Pressure Position Semi-Fowlers General: Alert, Oriented x3, Cooperative HEENT: Atraumatic, PERRLA, EOMI, Normocephalic Neck: Supple, No JVD, Negative Carotid Bruits Lungs: Clear to auscultation, Normal air movement Cardiovascular: Regular rate, Regular Rhythm, Normal S1, Normal S2, No murmurs Abdomen: Bowel Sounds Present, Soft, Non Tender, Non-Distended Extremities: No clubbing, No cyanosis, No edema, Capillary Refill Less than 3 Seconds Skin: No rashes, No breakdown Musculoskeletal: No Tenderness to Palpation of Joints or Extremities Neurological: Cranial nerves II-XII grossly intact, Neuro grossly intact Psych/Mental Status: Normal Affect, Appropriate [] - Physical Exam Vital Signs Temp Pulse Resp BP Pulse Ox 98.6 F 66 18 196/82 H 93 12/11/18 10:14 12/11/18 10:14 12/11/18 10:14 12/11/18 10:14 12/11/18 10:14 Oxygen Delivery Method Room Air Weight: 208 lb 12.444 oz Body Mass Index (BMI) 35.8 Intake and Output for Last 24 Hours 12/09/18 12/10/18 12/11/18 23:59 23:59 23:59 Intake Total 2365 / 2365 2786 / 2786 1051 / 1051 Output Total 375 / 375 700 / 700 Balance 2365 / 2365 2411 / 2411 351 / 351 Laboratory Tests Past 24 Hrs 12/11/18 12/11/18 06:45 06:45 WBC 8.7 RBC 3.54 L Hgb 9.7 L Hct 31.1 L MCV 87.9 MCH 27.4 MCHC 31.2 L RDW 16.0 H RDW Differential 51.7 H Plt Count 166 MPV 11.1 PT 32.2 H INR 3.1 POC Glucose 12/11/18 12/11/18 12/10/18 11:28 07:06 21:33 POC Glucose 204 H 161 H 222 H 12/10/18 16:13 POC Glucose 157 H Code Visit Inpatient E&M: 51538 Disch Hosp
--- NOTE | 2018-12-14 15:28 | CASEMGMT ---
MATILDE WINTERS Discharge F/U Phone Call LACE: 12 Strata: 4 Discharge date: 12/11/18 Call date: 12/14/18 Call time: 1530 Duration: 5 minutes Admission dx: UTI with sepsis Pt's answered phone and answered questions for pt at this time as pt is out with his son. Per , pt has been doing 'fine' since discharge and is scheduled to see PCP for f/u this thursday. states no questions regarding discharge instructions or medications at this time. states that pt's only concerns with stay were that he was not able to get up on his own initially. states no further questions/concerns/needs at this time. SStaten MATILDE WINTERS
== END 2018-12-11 13:06 | disposition home or self-care (01) | DRG 872 ==
LOC: ED 03:34 → PCU 04:49
PROVIDERS: Internal Medicine; Nurse Practitioner Family; Admitting Provider Family Medicine; Emergency Provider Emergency Medicine; Family Provider Nurse Practitioner; PCP Nurse Practitioner; Referring Provider Family Medicine; Visit Provider Student in an Organized Health Care Education/Training Program
DX: A41.51 Sepsis due to Escherichia coli [E. coli] (principal); N39.0 Urinary tract infection, site not specified; E78.5 Hyperlipidemia, unspecified; E11.9 Type 2 diabetes mellitus without complications; I10 Essential (primary) hypertension; I48.2 Chronic atrial fibrillation; D64.9 Anemia, unspecified; N20.0 Calculus of kidney; Z79.01 Long term (current) use of anticoagulants; Z79.84 Long term (current) use of oral hypoglycemic drugs
CPT/HCPCS: 36415; 71046; 76770; 80048; 80053; 81001; 82962; 83605; 85025; 85027; 85610; 85730; 87040; 87086; 87088; 87186; 93005; 97161; 97165; 99285; J7030; A4216

== ENCOUNTER 2019-01-05 11:57 | Outpatient (RCR) | payer MEDICARE, OTHER, SELFPAY ==
[2018-12-15 12:25] VITALS: BMI 37.2
[2018-12-22 15:36] LABS: International Normalized Ratio 2.9; Prothrombin Time (Protime)PT. 30.2 SECONDS (11.7-14.9)
[2019-01-05 12:34] LABS: International Normalized Ratio 2.7; Prothrombin Time (Protime)PT. 28.5 SECONDS (11.7-14.9)
== END 2019-01-05 13:00 | disposition home or self-care (01) ==
LOC: LAB 11:57
PROVIDERS: Family Provider Nurse Practitioner; PCP Nurse Practitioner; Referring Provider Internal Medicine Cardiovascular Disease; Visit Provider Internal Medicine Cardiovascular Disease
DX: I48.0 Paroxysmal atrial fibrillation (principal); Z79.01 Long term (current) use of anticoagulants
CPT/HCPCS: 36415; 85610

== ENCOUNTER 2019-01-31 08:37 | Outpatient (RCR) | payer MEDICARE, OTHER, SELFPAY ==
[2019-01-15 09:09] VITALS: BMI 35.8
[2019-01-31 08:59] LABS: International Normalized Ratio 2.7; Prothrombin Time (Protime)PT. 28.9 SECONDS (11.7-14.9)
== END 2019-02-13 12:00 | disposition home or self-care (01) ==
LOC: LAB 08:37
PROVIDERS: Family Provider Nurse Practitioner; PCP Nurse Practitioner; Referring Provider Internal Medicine Cardiovascular Disease; Visit Provider Internal Medicine Cardiovascular Disease
DX: I48.0 Paroxysmal atrial fibrillation (principal); Z79.01 Long term (current) use of anticoagulants
CPT/HCPCS: 36415; 85610

== ENCOUNTER 2019-02-28 08:12 | Outpatient (RCR) | payer MEDICARE, OTHER, SELFPAY ==
[2019-01-15 09:09] VITALS: BMI 35.8
[2019-02-28 08:59] LABS: International Normalized Ratio 2.9; Prothrombin Time (Protime)PT. 30.1 SECONDS (11.7-14.9)
== END 2019-02-28 09:00 | disposition home or self-care (01) ==
LOC: LAB 08:12
PROVIDERS: Family Provider Nurse Practitioner; PCP Nurse Practitioner; Referring Provider Internal Medicine Cardiovascular Disease; Visit Provider Internal Medicine Cardiovascular Disease
DX: I48.0 Paroxysmal atrial fibrillation (principal); Z79.01 Long term (current) use of anticoagulants
CPT/HCPCS: 36415; 85610

== ENCOUNTER → 2019-03-18 12:58 | Outpatient (CLI) | payer MEDICARE, OTHER, SELFPAY ==
[2019-03-14 13:04] VITALS: BMI 36.2
--- NOTE | 2019-03-18 13:00 | CDU_ITS ---
Reason For Study: TIA Rt. Velocities/BP Lt. Velocities/BP Prox CCA 130.2/26.1 cm/sec. Prox CCA 67.3/9.1 cm/sec. Mid CCA 117.4/22.5 cm/sec. Mid CCA 69.5/10.2 cm/sec. Dist CCA 112/22.5 cm/sec. Dist CCA 62.9/13.5 cm/sec. Prox ICA 249.8/75.3 cm/sec. Prox ECA 338.5/40.4 cm/sec. Mid ICA 153.6/34.5 cm/sec. Lt. Vert. 67.9/16.3 cm/sec. Dist ICA 143.2/42.2 cm/sec. Rt. ICA/CCA = 2.13. Prox ECA 163/22.6 cm/sec. Rt. Vert. 50.9/12.4 cm/sec. Right Extracranial There is heterogeneous, irregular atherosclerotic plaque noted in the right common carotid artery. There is heterogeneous, irregular atherosclerotic plaque noted in the right internal carotid artery. There is heterogeneous, irregular atherosclerotic plaque noted in the right external carotid artery. Antegrade flow is noted in the right vertebral artery. Left Extracranial There is homogeneous, smooth atherosclerotic plaque noted in the left common carotid artery. The left internal carotid artery is occluded. There is heterogeneous, irregular atherosclerotic plaque noted in the left external carotid artery. Antegrade flow is noted in the left vertebral artery. Procedure Carotid Duplex [id number]. Exam performed in department. Interpretation Summary Irregular calcific plague at the proximal right internal and external carotid arteries. 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 Slight progression of disease of the right internal carotid since 06/11/15 Ordering Physician: Ryan Stroud Referring Physician: Yoon Alba Performed By: Mercedes Crawford RVT
== END ==
PROVIDERS: Family Provider Nurse Practitioner; PCP Nurse Practitioner; Referring Provider Nurse Practitioner Family; Visit Provider Nurse Practitioner Family
DX: I65.22 Occlusion and stenosis of left carotid artery (principal); I48.1 Persistent atrial fibrillation; Z86.73 Personal history of transient ischemic attack (TIA), and cerebral infarction without residual deficits
CPT/HCPCS: 93880

== ENCOUNTER 2019-03-30 15:05 | Outpatient (RCR) | payer MEDICARE, OTHER, SELFPAY ==
[2019-03-14 13:04] VITALS: BMI 36.2
[2019-03-30 15:57] LABS: International Normalized Ratio 2.4; Prothrombin Time (Protime)PT. 26.4 SECONDS (11.7-14.9)
== END 2019-03-30 17:00 | disposition home or self-care (01) ==
LOC: LAB 15:05
PROVIDERS: Family Provider Nurse Practitioner; PCP Nurse Practitioner; Referring Provider Internal Medicine Cardiovascular Disease; Visit Provider Internal Medicine Cardiovascular Disease
DX: I48.0 Paroxysmal atrial fibrillation (principal); Z79.01 Long term (current) use of anticoagulants
CPT/HCPCS: 36415; 85610

== ENCOUNTER 2019-04-27 11:17 | Outpatient (RCR) | payer MEDICARE, OTHER, SELFPAY ==
[2019-03-14 13:04] VITALS: BMI 36.2
[2019-04-25 13:48] VITALS: BMI 36.2
[2019-04-27 11:57] LABS: International Normalized Ratio 2.3; Prothrombin Time (Protime)PT. 25.7 SECONDS (11.7-14.9)
== END 2019-04-27 13:00 | disposition home or self-care (01) ==
LOC: LAB 11:17
PROVIDERS: Family Provider Nurse Practitioner; PCP Nurse Practitioner; Referring Provider Internal Medicine Cardiovascular Disease; Visit Provider Internal Medicine Cardiovascular Disease
DX: I48.0 Paroxysmal atrial fibrillation (principal); Z79.01 Long term (current) use of anticoagulants
CPT/HCPCS: 36415; 85610

== ENCOUNTER 2019-05-25 14:12 | Outpatient (RCR) | payer MEDICARE, OTHER, SELFPAY ==
[2019-04-25 13:48] VITALS: BMI 36.2
[2019-05-25 15:22] LABS: International Normalized Ratio 2.5; Prothrombin Time (Protime)PT. 27.4 SECONDS (11.7-14.9)
== END 2019-05-25 18:00 | disposition home or self-care (01) ==
LOC: LAB 14:12
PROVIDERS: Family Provider Nurse Practitioner; PCP Nurse Practitioner; Referring Provider Internal Medicine Cardiovascular Disease; Visit Provider Internal Medicine Cardiovascular Disease
DX: I48.0 Paroxysmal atrial fibrillation (principal); Z79.01 Long term (current) use of anticoagulants
CPT/HCPCS: 36415; 85610

== ENCOUNTER → 2019-06-15 10:26 | Outpatient (CLI) | payer MEDICARE, OTHER, SELFPAY ==
[2019-04-25 13:48] VITALS: BMI 36.2
--- NOTE | 2019-06-15 10:32 | RAD_ITS ---
STUDY: X-RAY - LEFT KNEE REASON FOR EXAM: Male, 78 years old. Pain TECHNIQUE: 4 view(s) of the knee. COMPARISON: None. FINDINGS: Normal visualized distal femur. Normal visualized proximal tibia and fibula. Normal proximal tibiofibular articulation. Narrowed medial femorotibial compartment with mild valgus deformity. Normal lateral femorotibial compartment. Normal patellofemoral articulation. Chondrocalcinosis is observed RAD/Knee 4 or More Views IMPRESSION: Severely narrowed medial compartment of the femorotibial joint with mild valgus deformity upon weightbearing. Electronically Signed: Arcadio Landin MD at 21:59 EDT , Service support ,
== END ==
PROVIDERS: Family Provider Nurse Practitioner; PCP Nurse Practitioner; Referring Provider Nurse Practitioner; Visit Provider Nurse Practitioner
DX: M17.12 Unilateral primary osteoarthritis, left knee (principal)
CPT/HCPCS: 73564

== ENCOUNTER 2019-06-21 13:39 | Outpatient (RCR) | payer MEDICARE, OTHER, SELFPAY ==
[2019-04-25 13:48] VITALS: BMI 36.2
[2019-06-21 15:33] LABS: International Normalized Ratio 2.3
== END 2019-06-21 18:00 | disposition home or self-care (01) ==
LOC: LAB 13:39
PROVIDERS: Family Provider Nurse Practitioner; PCP Nurse Practitioner; Referring Provider Internal Medicine Cardiovascular Disease; Visit Provider Internal Medicine Cardiovascular Disease
DX: I48.0 Paroxysmal atrial fibrillation (principal); Z79.01 Long term (current) use of anticoagulants
CPT/HCPCS: 36415; 85610

== ENCOUNTER 2019-08-16 12:53 | Outpatient (RCR) | payer MEDICARE, OTHER, SELFPAY ==
[2019-04-25 13:48] VITALS: BMI 36.2
[2019-07-22 14:23] LABS: International Normalized Ratio 2.4; Prothrombin Time (Protime)PT. 26.5 SECONDS (11.7-14.9)
[2019-08-16 13:50] LABS: International Normalized Ratio 2.5; Prothrombin Time (Protime)PT. 26.8 SECONDS (11.7-14.9)
== END 2019-08-16 18:00 | disposition home or self-care (01) ==
LOC: LAB 12:53
PROVIDERS: Family Provider Nurse Practitioner; PCP Nurse Practitioner; Referring Provider Internal Medicine Cardiovascular Disease; Visit Provider Internal Medicine Cardiovascular Disease
DX: I48.0 Paroxysmal atrial fibrillation (principal); Z79.01 Long term (current) use of anticoagulants
CPT/HCPCS: 36415; 85610

== ENCOUNTER → 2019-08-26 13:27 | Outpatient (CLI) | payer MEDICARE, OTHER, SELFPAY ==
[2019-08-26 08:59] VITALS: BMI 36.3
[2019-08-26 15:35] LABS: AST(SGOT) 31 U/L (15-37); Alanine Aminotransfer ALT/SGPT 38 U/L (16-61); Albumin, Serum 3.8 g/dL (3.2-5.0); Alkaline Phosphatase 63 U/L (45-117); Bilirubin, Direct 0.18 mg/dL (0.00-0.30); Cholesterol 110 mg/dL (200); Globulin 4.3 g/dL (2.2-4.2); High Density Lipoprotein 47 mg/dL; Protein, Total 8.1 g/dL (6.4-8.2); Triglycerides 128 mg/dL; Very Low Density Lipoprotein 26 mg/dL (5-40)
== END ==
PROVIDERS: Family Provider Nurse Practitioner; PCP Nurse Practitioner; Referring Provider Internal Medicine Cardiovascular Disease; Visit Provider Internal Medicine Cardiovascular Disease
DX: E78.00 Pure hypercholesterolemia, unspecified (principal)
CPT/HCPCS: 36415; 80061; 80076

== ENCOUNTER 2019-09-02 13:15 | Outpatient (RCR) | payer MEDICARE, OTHER, SELFPAY ==
[2019-04-25 13:48] VITALS: BMI 36.2
[2019-08-26 08:59] VITALS: BMI 36.3
[2019-09-02 14:50] LABS: International Normalized Ratio 2.3
== END 2019-09-02 18:00 | disposition home or self-care (01) ==
LOC: LAB 13:15
PROVIDERS: Family Provider Nurse Practitioner; PCP Nurse Practitioner; Referring Provider Internal Medicine Cardiovascular Disease; Visit Provider Internal Medicine Cardiovascular Disease
DX: I48.0 Paroxysmal atrial fibrillation (principal); Z79.01 Long term (current) use of anticoagulants
CPT/HCPCS: 36415; 85610

== ENCOUNTER 2019-09-28 13:10 | Outpatient (RCR) | payer MEDICARE, OTHER, SELFPAY ==
[2019-08-26 08:59] VITALS: BMI 36.3
[2019-09-28 13:53] LABS: International Normalized Ratio 2.6; Prothrombin Time (Protime)PT. 28.2 SECONDS (11.7-14.9)
== END 2019-09-28 18:00 | disposition home or self-care (01) ==
LOC: LAB 13:10
PROVIDERS: Family Provider Nurse Practitioner; PCP Nurse Practitioner; Referring Provider Internal Medicine Cardiovascular Disease; Visit Provider Internal Medicine Cardiovascular Disease
DX: I48.0 Paroxysmal atrial fibrillation (principal); Z79.01 Long term (current) use of anticoagulants
CPT/HCPCS: 36415; 85610

== ENCOUNTER 2019-10-26 11:24 | Outpatient (RCR) | payer MEDICARE, OTHER, SELFPAY ==
[2019-08-26 08:59] VITALS: BMI 36.3
[2019-10-26 12:13] LABS: International Normalized Ratio 2.8; Prothrombin Time (Protime)PT. 29.5 SECONDS (11.7-14.9)
== END 2019-10-26 18:00 | disposition home or self-care (01) ==
LOC: LAB 11:24
PROVIDERS: Family Provider Nurse Practitioner; PCP Nurse Practitioner; Referring Provider Internal Medicine Cardiovascular Disease; Visit Provider Internal Medicine Cardiovascular Disease
DX: I48.0 Paroxysmal atrial fibrillation (principal); Z79.01 Long term (current) use of anticoagulants
CPT/HCPCS: 36415; 85610

== ENCOUNTER 2019-11-22 13:18 | Outpatient (RCR) | payer MEDICARE, OTHER, SELFPAY ==
[2019-08-26 08:59] VITALS: BMI 36.3
[2019-11-22 15:37] LABS: International Normalized Ratio 2.8; Prothrombin Time (Protime)PT. 28.8 SECONDS (11.7-14.9)
== END 2019-12-15 18:00 | disposition home or self-care (01) ==
LOC: LAB 13:18
PROVIDERS: Family Provider Nurse Practitioner; PCP Nurse Practitioner; Referring Provider Internal Medicine Cardiovascular Disease; Visit Provider Internal Medicine Cardiovascular Disease
DX: I48.0 Paroxysmal atrial fibrillation (principal); Z79.01 Long term (current) use of anticoagulants
CPT/HCPCS: 36415; 85610

== ENCOUNTER 2019-12-21 14:00 | Outpatient (RCR) | payer MEDICARE, OTHER, SELFPAY ==
[2019-08-26 08:59] VITALS: BMI 36.3
[2019-12-21 14:58] LABS: International Normalized Ratio 2.6; Prothrombin Time (Protime)PT. 27.5 SECONDS (11.7-14.9)
== END 2019-12-21 18:00 | disposition home or self-care (01) ==
LOC: LAB 14:00
PROVIDERS: Family Provider Nurse Practitioner; PCP Nurse Practitioner; Referring Provider Internal Medicine Cardiovascular Disease; Visit Provider Internal Medicine Cardiovascular Disease
DX: I48.0 Paroxysmal atrial fibrillation (principal); Z79.01 Long term (current) use of anticoagulants
CPT/HCPCS: 36415; 85610

== ENCOUNTER 2020-01-19 14:31 | Outpatient (RCR) | payer MEDICARE, OTHER, SELFPAY ==
[2019-08-26 08:59] VITALS: BMI 36.3
[2020-01-19 15:52] LABS: International Normalized Ratio 2.8; Prothrombin Time (Protime)PT. 28.7 SECONDS (11.7-14.9)
== END 2020-01-19 18:00 | disposition home or self-care (01) ==
LOC: LAB 14:31
PROVIDERS: Family Provider Nurse Practitioner; PCP Nurse Practitioner; Referring Provider Internal Medicine Cardiovascular Disease; Visit Provider Internal Medicine Cardiovascular Disease
DX: I48.0 Paroxysmal atrial fibrillation (principal); Z79.01 Long term (current) use of anticoagulants
CPT/HCPCS: 36415; 85610

== ENCOUNTER 2020-02-20 13:40 | Outpatient (RCR) | payer MEDICARE, OTHER, SELFPAY ==
[2019-08-26 08:59] VITALS: BMI 36.3
[2020-02-20 14:13] LABS: International Normalized Ratio 2.6; Prothrombin Time (Protime)PT. 27.5 SECONDS (11.7-14.9)
== END 2020-02-20 18:00 | disposition home or self-care (01) ==
LOC: LAB 13:40
PROVIDERS: Family Provider Nurse Practitioner; PCP Nurse Practitioner; Referring Provider Internal Medicine Cardiovascular Disease; Visit Provider Internal Medicine Cardiovascular Disease
DX: I48.0 Paroxysmal atrial fibrillation (principal); Z79.01 Long term (current) use of anticoagulants
CPT/HCPCS: 36415; 85610

== ENCOUNTER 2020-03-19 13:44 | Outpatient (RCR) | payer MEDICARE, OTHER, SELFPAY ==
[2020-02-29 12:30] VITALS: BMI 36.8
[2020-03-19 15:47] LABS: International Normalized Ratio 2.8; Prothrombin Time (Protime)PT. 29.2 SECONDS (11.7-14.9)
== END 2020-04-16 18:00 | disposition home or self-care (01) ==
LOC: LAB 13:44
PROVIDERS: Family Provider Nurse Practitioner; PCP Nurse Practitioner; Referring Provider Internal Medicine Cardiovascular Disease; Visit Provider Internal Medicine Cardiovascular Disease
DX: I48.0 Paroxysmal atrial fibrillation (principal); Z79.01 Long term (current) use of anticoagulants
CPT/HCPCS: 36415; 85610

== ENCOUNTER → 2020-04-09 12:13 | Outpatient (CLI) | payer MEDICARE, OTHER, SELFPAY ==
[2020-02-29 12:30] VITALS: BMI 36.8
--- NOTE | 2020-04-09 12:14 | CDU_ITS ---
Reason For Study: Carotid Artery Stenosis Rt. Velocities/BP Lt. Velocities/BP Prox CCA 89/12 cm/sec. Prox CCA 72/5 cm/sec. Mid CCA 105/24 cm/sec. Mid CCA 73/13 cm/sec. Dist CCA 96/23 cm/sec. Dist CCA 54/7 cm/sec. Prox ICA 240/47 cm/sec. Lt ICA: known total occlusion. Mid ICA 205/45 cm/sec. Prox ECA 423/28 cm/sec. Dist ICA 111/19 cm/sec. Lt. Vert. 67/24 cm/sec. Rt. ICA/CCA = 2.29. Prox ECA 167/4 cm/sec. Rt. Vert. 54/12 cm/sec. Right Extracranial There is heterogeneous, irregular atherosclerotic plaque noted in the right common carotid artery. There is heterogeneous, irregular atherosclerotic plaque noted in the right internal carotid artery. There is heterogeneous, irregular atherosclerotic plaque noted in the right external carotid artery. Antegrade flow is noted in the right vertebral artery. Left Extracranial There is heterogeneous, irregular atherosclerotic plaque noted in the left common carotid artery. There is heterogeneous, irregular atherosclerotic plaque noted in the left internal carotid artery. The left internal carotid artery is occluded. There is heterogeneous, irregular atherosclerotic plaque noted in the left external carotid artery. Antegrade flow is noted in the left vertebral artery. Procedure Carotid Duplex [id number]. Prelim given to Ryan Stroud NP. Exam performed in department. Interpretation Summary Calcific irregular plaque within the proximal right internal carotid artery with calcific shadowing. >70% stenosis right internal carotid <50% stenosis right external carotid Occlusion left internal carotid >50% stenosis left external carotid Patent, antegrade vertebrals bilaterally No significant change from the previous carotid duplex exam of March 18, 2019 Ordering Physician: Ryan Stroud Referring Physician: Yoon Alba Performed By: Winter Stroud, SAHRACS, RVT
== END ==
PROVIDERS: PCP Nurse Practitioner; Referring Provider Nurse Practitioner Family; Visit Provider Nurse Practitioner Family
DX: I65.23 Occlusion and stenosis of bilateral carotid arteries (principal)
CPT/HCPCS: 93880

== ENCOUNTER 2020-04-24 14:16 | Outpatient (RCR) | payer MEDICARE, OTHER, SELFPAY ==
[2020-02-29 12:30] VITALS: BMI 36.8
[2020-04-24 15:05] LABS: International Normalized Ratio 2.5; Prothrombin Time (Protime)PT. 26.3 SECONDS (11.7-14.9)
== END 2020-04-24 18:00 | disposition home or self-care (01) ==
LOC: LAB 14:16
PROVIDERS: Family Provider Nurse Practitioner; PCP Nurse Practitioner; Referring Provider Internal Medicine Cardiovascular Disease; Visit Provider Internal Medicine Cardiovascular Disease
DX: I48.0 Paroxysmal atrial fibrillation (principal); Z79.01 Long term (current) use of anticoagulants
CPT/HCPCS: 36415; 85610

== ENCOUNTER 2020-06-06 11:22 | Outpatient (RCR) | payer MEDICARE, OTHER, SELFPAY ==
[2020-02-29 12:30] VITALS: BMI 36.8
[2020-05-21 10:21] LABS: International Normalized Ratio 3.1; Prothrombin Time (Protime)PT. 31.8 SECONDS (11.7-14.9)
[2020-06-06 11:58] LABS: International Normalized Ratio 2.5; Prothrombin Time (Protime)PT. 26.6 SECONDS (11.7-14.9)
== END 2020-06-06 18:00 | disposition home or self-care (01) ==
LOC: LAB 11:22
PROVIDERS: Family Provider Nurse Practitioner; PCP Nurse Practitioner; Referring Provider Internal Medicine Cardiovascular Disease; Visit Provider Internal Medicine Cardiovascular Disease
DX: I48.0 Paroxysmal atrial fibrillation (principal); Z79.01 Long term (current) use of anticoagulants
CPT/HCPCS: 36415; 85610

== ENCOUNTER 2020-07-16 13:16 | Outpatient (RCR) | payer MEDICARE, OTHER, SELFPAY ==
[2020-02-29 12:30] VITALS: BMI 36.8
[2020-07-03 17:45] LABS: Prothrombin Time (Protime)PT. 34.6 SECONDS (11.7-14.9)
[2020-07-03 18:00] LABS: International Normalized Ratio 3.5
[2020-07-16 14:38] LABS: International Normalized Ratio 2.5; Prothrombin Time (Protime)PT. 26.6 SECONDS (11.7-14.9)
== END 2020-07-16 18:00 | disposition home or self-care (01) ==
LOC: LAB 13:16
PROVIDERS: Family Provider Nurse Practitioner; PCP Nurse Practitioner; Referring Provider Internal Medicine Cardiovascular Disease; Visit Provider Internal Medicine Cardiovascular Disease
DX: I48.0 Paroxysmal atrial fibrillation (principal); Z79.01 Long term (current) use of anticoagulants
CPT/HCPCS: 36415; 85610

== ENCOUNTER 2020-08-06 10:55 | Outpatient (RCR) | payer MEDICARE, OTHER, SELFPAY ==
[2020-02-29 12:30] VITALS: BMI 36.8
[2020-08-06 11:47] LABS: International Normalized Ratio 2.6; Prothrombin Time (Protime)PT. 27.7 SECONDS (11.7-14.9)
== END 2020-08-06 18:00 | disposition home or self-care (01) ==
LOC: LAB 10:55
PROVIDERS: Family Provider Nurse Practitioner; PCP Nurse Practitioner; Referring Provider Internal Medicine Cardiovascular Disease; Visit Provider Internal Medicine Cardiovascular Disease
DX: I48.0 Paroxysmal atrial fibrillation (principal); Z79.01 Long term (current) use of anticoagulants
CPT/HCPCS: 36415; 85610

== ENCOUNTER 2020-09-04 12:43 | Outpatient (RCR) | payer MEDICARE, OTHER, SELFPAY ==
[2020-02-29 12:30] VITALS: BMI 36.8
[2020-09-04 14:19] LABS: International Normalized Ratio 2.2
== END 2020-09-04 18:00 | disposition home or self-care (01) ==
LOC: LAB 12:43
PROVIDERS: Family Provider Nurse Practitioner; PCP Nurse Practitioner; Referring Provider Internal Medicine Cardiovascular Disease; Visit Provider Internal Medicine Cardiovascular Disease
DX: I48.0 Paroxysmal atrial fibrillation (principal); Z79.01 Long term (current) use of anticoagulants
CPT/HCPCS: 36415; 85610

== ENCOUNTER 2020-10-04 13:50 | Outpatient (RCR) | payer MEDICARE, OTHER, SELFPAY ==
[2020-02-29 12:30] VITALS: BMI 36.8
[2020-10-04 16:16] LABS: International Normalized Ratio 2.9; Prothrombin Time (Protime)PT. 29.7 SECONDS (11.7-14.9)
== END 2020-10-04 18:00 | disposition home or self-care (01) ==
LOC: LAB 13:50
PROVIDERS: Family Provider Nurse Practitioner; PCP Nurse Practitioner; Referring Provider Internal Medicine Cardiovascular Disease; Visit Provider Internal Medicine Cardiovascular Disease
DX: I48.0 Paroxysmal atrial fibrillation (principal); Z79.01 Long term (current) use of anticoagulants
CPT/HCPCS: 36415; 85610

== ENCOUNTER 2020-10-29 13:34 | Outpatient (RCR) | payer MEDICARE, OTHER, SELFPAY ==
[2020-02-29 12:30] VITALS: BMI 36.8
[2020-10-29 14:52] LABS: International Normalized Ratio 2.5; Prothrombin Time (Protime)PT. 26.5 SECONDS (11.7-14.9)
== END 2020-10-29 18:00 | disposition home or self-care (01) ==
LOC: LAB 13:34
PROVIDERS: Family Provider Nurse Practitioner; PCP Nurse Practitioner; Referring Provider Internal Medicine Cardiovascular Disease; Visit Provider Internal Medicine Cardiovascular Disease
DX: Z79.01 Long term (current) use of anticoagulants (principal); I48.0 Paroxysmal atrial fibrillation
CPT/HCPCS: 36415; 85610

== ENCOUNTER → 2020-11-09 | Outpatient (CLI) | payer MEDICARE, OTHER, SELFPAY ==
[2020-02-29 12:30] VITALS: BMI 36.8
[2020-11-09 11:23] LABS: Absolute Lymphocyte Count 1.33 X10^3/uL (0.83-4.51); Absolute Neutrophil Count 6.7 X10^3/uL (2.0-7.7); Basophil# 0.03 X10^3/uL; Basophil% 0.3 % (0-1); Eosinophil# 0.15 X10^3/uL; Eosinophils% 1.7 % (0-5); Hematocrit 36.4 % (40-54); Hemoglobin 11.4 g/dL (13.0-16.5); Lymphocyte # 1.33 X10^3/ul (4.0); Lymphocyte % 14.9 % (19-41); Mean Corp Hgb Conc 31.3 g/dL (32-36); Mean Corpuscular Hgb 29.3 pg (27.0-32.0); Mean Corpuscular Volume 93.6 fL (80-94); Mean Platelet Vol. 10.6 fl (6.2-12.0); Monocyte# 0.66 X10^3/uL; Monocyte% 7.4 % (0-10); NRBC Flagged by Analyzer 0 % (0-5); Neutrophil # 6.74 X10^3/uL (2.7-7.7); Neutrophil % 75.4 % (47-70); Platelet Count 214 K/mm3 (150-450); RBC Distribution Width CV 14.8 % (11.6-14.6); RBC Distribution Width SD 50.2 fl (35.1-43.9); Red Blood Count 3.89 M/mm3 (4.6-6.2); White Blood Count 8.9 K/mm3 (4.4-11.0)
[2020-11-09 11:32] LABS: D-Dimer Quantitative (DVT/PE) 0.32 FEU/ug/m (0.27-0.49)
[2020-11-09 11:40] LABS: AST(SGOT) 45 U/L (15-37); Alanine Aminotransfer ALT/SGPT 49 U/L (16-61); Albumin, Serum 3.4 g/dL (3.2-5.0); Alkaline Phosphatase 64 U/L (45-117); Anion Gap 10 (5-15); BUN 19 mg/dL (7-18); BUN/Creat Ratio 20.5 RATIO (10-20); CPK Total, Creatine Kinase 515 U/L (39-308); Calcium,Total 9.4 mg/dL (8.5-10.1); Chloride 104 mmol/L (98-107); Creatinine, Serum 0.93 mg/dL (0.70-1.30); EST Glomerular Filtration Rate 84 mL/min (>60); Est Glom Filt Rate - Afr Amer 101 mL/min (>60); Globulin 3.5 g/dL (2.2-4.2); Glucose 140 mg/dL (74-106); Protein, Total 6.9 g/dL (6.4-8.2); Sodium Level 141 mmol/L (136-145); Thyroid Stim Hormone (TSH) 0.78 uIU/mL (0.358-3.74)
== END | disposition home or self-care (01) ==
LOC: LABSPEC 11:08
PROVIDERS: PCP Nurse Practitioner; Referring Provider Nurse Practitioner; Visit Provider Nurse Practitioner
DX: R07.9 Chest pain, unspecified (principal); Z13.29 Encounter for screening for other suspected endocrine disorder
CPT/HCPCS: 80053; 82550; 84443; 84484; 85025; 85379; 86140

== ENCOUNTER → 2020-11-13 15:58 | Outpatient (CLI) | payer MEDICARE, OTHER, SELFPAY ==
[2020-11-13 14:56] VITALS: BMI 36.7
== END ==
PROVIDERS: PCP Nurse Practitioner; Referring Provider Internal Medicine Cardiovascular Disease; Visit Provider Internal Medicine Cardiovascular Disease
DX: R07.9 Chest pain, unspecified (principal)
CPT/HCPCS: 36415; 86141

== ENCOUNTER → 2020-11-21 06:39 | Outpatient (CLI) | payer MEDICARE, OTHER, SELFPAY ==
[2020-11-13 14:56] VITALS: BMI 36.7
--- NOTE | 2020-11-21 06:43 | ECHOD_ITS ---
Reason For Study: Dyspnea/SOB Procedure This was a 2D Doppler, Color Flow transthoracic echocardiogram. Exam performed in department. Left Ventricle Normal LV size. Left ventricular systolic function is normal. The estimated ejection fraction is 60 %. Diastolic function is indeterminate. No regional wall motion abnormalities noted. Right Ventricle Normal RV size. Normal systolic function. Atria The left atrium is moderately enlarged. Normal right atrium. Mitral Valve Normal mitral valve. Mild (1+) eccentric mitral valve insufficiency. Tricuspid Valve Normal tricuspid valve. Mild to moderate (1-2+) tricuspid valve insufficiency. Pulmonary artery systolic pressure is 54 mmHg. Aortic Valve Trisinus/trileaflet aortic valve. Mild focal aortic valve calcification. Peak aortic valve gradient 27 mmHg. Mean aortic valve gradient 13 mmHg. Mild aortic stenosis. Mild (1+) aortic valve insufficiency. Pulmonic Valve Normal pulmonic valve. Pericardium/Pleural No pericardial effusion. MMode/2D Measurements & Calculations LVIDd: 5.0 cm IVSd: 1.5 cm LVOT diam: 2.0 cm LVIDs: 2.9 cm LVPWd: 1.1 cm LVOT area: 3.1 cm2 FS: 41.5 % Ao root diam: 3.2 cm LAV(MOD-bp): 110.1 ml LA A4 area: 29.1 cm2 LA dimension: 5.1 cm LAV(MOD-bp) Indexed: 55.2 ml/m2 LAV(MOD-sp2): 101.8 ml LAV(MOD-sp4): 101.7 ml RA A4 area: 20.2 cm2 Doppler Measurements & Calculations MV E max sterling: 127.6 cm/sec Ao V2 max: 262.9 cm/sec AI max sterling: 443.6 cm/sec Ao max P.7 mmHg AI max P.7 mmHg Ao V2 mean: 167.1 cm/sec AI dec slope: 204.0 cm/sec2 Ao mean P.9 mmHg AI P1/2t: 636.9 msec Ao V2 VTI: 58.7 cm PEARL(I,D): 1.5 cm2 PEARL(V,D): 1.6 cm2 LV V1 max: 135.6 cm/sec SV(LVOT): 88.9 ml PA V2 max: 134.1 cm/sec LV V1 max P.4 mmHg LV V1 mean P.3 mmHg LV V1 mean: 82.2 cm/sec LV V1 VTI: 29.1 cm TR max sterling: 347.4 cm/sec TR max P.3 mmHg ECHO/Echo Complete Interpretation Summary Normal LV size. Left ventricular systolic function is normal. The estimated ejection fraction is 60 %. Diastolic function is indeterminate. The left atrium is moderately enlarged. Mild focal aortic valve calcification. Mild aortic stenosis. Mean aortic valve gradient 13 mmHg. Mild (1+) aortic valve insufficiency. Ordering Physician: Antonio Eubanks Referring Physician: Yoon Alba Performed By: Lee Rinaldi RCS
--- NOTE | 2020-11-21 18:48 | STRESSREP ---
Stress Test Report Pharmacologic myocardial perfusion stress test. 80-year-old man with history of shortness of breath and atrial fibrillation. Stress protocol: Resting KG demonstrates atrial fibrillation with a rate of 56 bpm normal intervals are noted resting blood pressure is 1 and 22 over 80 mmHg. 0.4 mg of regadenoson was infused per usual protocol followed by rapid intravenous saline flush injection continuous EKG monitoring was performed. The patient maintained atrial fibrillation throughout the recording. The maximum heart rate was 79 bpm which was 55% of max impacted heart rate the maximum workload was 1 metabolic equivalent. At rest there were no ST or T wave changes noted to suggest abnormal flow reserve and at peak infusion nonspecific ST changes were noted which did not meet the criteria for ischemia. The final blood pressure was 120/80 mmHg. Myocardial perfusion protocol. 14.7 mCi of technetium 99m sestamibi was injected at rest. 0.4 mg of regadenoson was infused per usual protocol. At peak infusion 44.4 mCi of technetium 99m sestamibi was injected stress images were obtained stress and rest images were reconstructed and compared in the short axis vertical long and horizontal long axis. Gated images were also obtained. Perfusion SPECT analysis: Review of the stress images demonstrate mild reduction of perfusion noted in the mid anterior wall. The resting images demonstrate improvement in this area suggesting a mild amount of anterior ischemia noted. The septum inferior wall and lateral wall appear to be well perfused. Gated SPECT analysis: The gated ejection fraction is 67%. Conclusion: Abnormal pharmacologic myocardial perfusion stress test with evidence of mid anterior ischemia. Preserved ejection fraction. Atrial fibrillation noted.
== END ==
PROVIDERS: PCP Nurse Practitioner; Referring Provider Internal Medicine Cardiovascular Disease; Visit Provider Internal Medicine Cardiovascular Disease
DX: I25.10 Atherosclerotic heart disease of native coronary artery without angina pectoris (principal); I48.11 Longstanding persistent atrial fibrillation
CPT/HCPCS: 78452; 93017; 93306; A9500; A4216; J2785

== ENCOUNTER 2020-11-26 08:14 | Day surgery (SDC) | payer MEDICARE, OTHER, SELFPAY ==
[2020-11-13 14:56] VITALS: BMI 36.7
[2020-11-23 08:44] VITALS: BMI 36.7
[2020-11-26 08:30] LABS: INR Fingerstick 1.3; Prothrombin Time Fingerstick 15.9 SEC (11.9-14.4)
--- NOTE | 2020-11-26 10:59 | CL.D_ITS ---
Patient Name: VIDHYA YA Study Date: 11/26/2020 Performing: Antonio Eubanks MD Ht: 64.17 inches 163 cm : 1940 Wt: 213.85 lbs 97 kg Age: 80 Gender: male BSA: 2.02 PROCEDURE(S) PERFORMED [id number] CLINICAL PROFILE AND INDICATIONS Indications: Suspected CAD Heart Failure: None Stress/Imaging Date: 11/21/20ress Test with SPECT MPI: Positive Low Risk CAD Presentations: No Sxs, no angina. CONCLUSIONS Non obstructive coronary arteries Moderate calcification of the left anterior descending artery and the ostial right coronary artery RECOMMENDATIONS Medical therapy DESCRIPTION OF PROCEDURE The patient arrived to the procedure lab. The risks and benefits of the procedure as well as a full d escription of our services here and current unavailability of surgical backup were fully explained to the patient and/or their significant other prior to the catheterization. The Timeout was completed, verifying the correct patient and procedure. The patient's procedural site was prepped and draped in the usual fashion. Local anesthetic was given subcutaneously to right radial region with Lidocaine 2% . Using a modified Seldinger technique, arterial access was obtained via the right radial artery, a 6 Fr sheath was inserted. Right radial selective angiography was then performed in single view. Left C oronary Artery selective angiography was performed in multiple views using a 5 Fr. 4.0 [place] catheter . Right Coronary Artery selective angiography was then performed in multiple views using a 5 Fr. JR 5 catheter.The arterial sheath was pulled and a TR Band was applied for hemostasis - 10cc CORONARY ANGIOGRAPHY DOMINANCE: Right Dominant LEFT HEART ASSESSMENT Left Ventricular Ejection Fraction: by Echo 60 % Normal LV wall motion Normal Left Ventricular systolic function LEFT MAIN: Mild calcification, No significant disease noted LEFT ANTERIOR DESCENDING ARTERY: Moderate luminal irregularities up to 50% PROX LAD: Moderate calcification MID LAD: Moderate calcification CIRCUMFLEX ARTERY: Mild luminal irregularities less than 30% RIGHT CORONARY ARTERY: Mild luminal irregularities less than 30% OSTIAL RCA: Moderate calcification VALVE FINDINGS: Aortic Valve Calcification - mild Aortic Valve Stenosis - mild COMPLICATIONS No Complications PROCEDURE MEDICATIONS Versed 1 mg IV Fentanyl 50 mcg IV Versed 1 mg IV Oxygen: 2 L/min via nasal cannula Heparin diluted in 23cc Heparinized saline. Patient given 10cc IA of this solution. 11/26/2020 10:30: 19 Verapamil 2.5mg, Ntg 100mcgs, 2000 units of Heparin diluted in 23cc Heparinized saline. Patient give n 10cc IA of this solution. 11/26/2020 10:30:19 SUMMARY OF HEMODYNAMIC DATA Time AIR REST ECG 08:58:28 Art 125/61 (84) 10:32:26 AO 141/61 (89) SA 10:35:20 10:57:13 Signed By Antonio Eubanks MD On 11/26/2020 10:58:29 AM Antonio Eubanks MD
== END 2020-11-26 12:35 | disposition home or self-care (01) ==
PROVIDERS: PCP Nurse Practitioner; Referring Provider Internal Medicine Cardiovascular Disease; Visit Provider Internal Medicine Cardiovascular Disease
DX: I25.10 Atherosclerotic heart disease of native coronary artery without angina pectoris (principal); I48.11 Longstanding persistent atrial fibrillation; I65.23 Occlusion and stenosis of bilateral carotid arteries; I10 Essential (primary) hypertension; Q21.1 Atrial septal defect; E78.5 Hyperlipidemia, unspecified; E11.9 Type 2 diabetes mellitus without complications; E66.9 Obesity, unspecified; Z68.36 Body mass index [BMI] 36.0-36.9, adult; Z85.46 Personal history of malignant neoplasm of prostate; Z86.73 Personal history of transient ischemic attack (TIA), and cerebral infarction without residual deficits; Z86.19 Personal history of other infectious and parasitic diseases; Z87.440 Personal history of urinary (tract) infections; Z79.01 Long term (current) use of anticoagulants; Z79.84 Long term (current) use of oral hypoglycemic drugs; Z79.899 Other long term (current) drug therapy
CPT/HCPCS: 36416; 85610; 93454; 99152; 99153; J7040; Q9967; C1769; C1894

== ENCOUNTER 2020-12-25 12:05 | Outpatient (RCR) | payer MEDICARE, OTHER, SELFPAY ==
[2020-11-13 14:56] VITALS: BMI 36.7
[2020-11-23 08:44] VITALS: BMI 36.7
[2020-12-25 13:46] LABS: International Normalized Ratio 2.2; Prothrombin Time (Protime)PT. 23.8 SECONDS (11.7-14.9)
== END 2020-12-25 18:00 | disposition home or self-care (01) ==
LOC: LAB 12:05
PROVIDERS: Family Provider Nurse Practitioner; PCP Nurse Practitioner; Referring Provider Internal Medicine Cardiovascular Disease; Visit Provider Internal Medicine Cardiovascular Disease
DX: I48.0 Paroxysmal atrial fibrillation (principal); Z79.01 Long term (current) use of anticoagulants
CPT/HCPCS: 36415; 85610

== ENCOUNTER 2021-02-08 12:06 | Outpatient (RCR) | payer MEDICARE, OTHER, SELFPAY ==
[2020-11-23 08:44] VITALS: BMI 36.7
[2021-01-25 10:24] LABS: International Normalized Ratio 3.1; Prothrombin Time (Protime)PT. 31.5 SECONDS (11.7-14.9)
[2021-02-08 13:23] LABS: International Normalized Ratio 3.2; Prothrombin Time (Protime)PT. 32.3 SECONDS (11.7-14.9)
== END 2021-02-08 18:00 | disposition home or self-care (01) ==
LOC: LAB 12:06
PROVIDERS: Family Provider Nurse Practitioner; PCP Nurse Practitioner; Referring Provider Internal Medicine Cardiovascular Disease; Visit Provider Internal Medicine Cardiovascular Disease
DX: I48.0 Paroxysmal atrial fibrillation (principal); Z79.01 Long term (current) use of anticoagulants
CPT/HCPCS: 36415; 85610

== ENCOUNTER 2021-03-07 19:10 | Inpatient (IN) | payer MEDICARE, OTHER, SELFPAY ==
[2020-11-23 08:44] VITALS: BMI 36.7
[2021-03-07 19:11] VITALS: BP 133/71; PULSE 90; RESP 16; TEMP 36.8; O2SAT 98; BMI 34.1
[2021-03-07 19:41] LABS: Bedside Glucose 222 mg/dL (70-110)
--- NOTE | 2021-03-07 19:50 | EKG12_ITS ---
Test Reason : HYPERGLYCEMIA Blood Pressure : / mmHG Vent. Rate : 082 BPM Atrial Rate : 091 BPM P-R Int : 000 ms QRS Dur : 090 ms QT Int : 352 ms P-R-T Axes : 000 -11 035 degrees QTc Int : 411 ms Atrial fibrillation Low voltage QRS Incomplete right bundle branch block Abnormal ECG Confirmed by MIKEL WATSON, NINFA ([id number]), scientific editor ESAU ANN ([id number]) on 03/11/2021 1:20:46 PM Referred By: LUCRECIA Confirmed By:NINFA MORIN MD
--- NOTE | 2021-03-07 19:50 | EX.ED.DYSGE1 ---
HPI History of Present Illness Chief Complaint: Hyperglycemia Informant: patient Onset/Context/Timing Onset: Today Narrative Narrative: Patient presents secondary to elevated blood sugar and not feeling well today. Patient states he just felt very tired today. He had some mild lower abdominal pain and niece points out that he been complaining of some intermittent chest pain. He states chest pain would come on for just a couple minutes and then resolved. He has noted increased dyspnea with exertion recently. Prior to arrival his blood sugar was 522. He did take a dose of his metformin on arrival to the emergency room blood sugar is reading 222. [facility] Medical History Diabetes mellitus, type II Essential (primary) hypertension History of CVA (cerebrovascular accident) (10/21/13) History of prostate cancer Hyperlipidemia Longstanding persistent atrial fibrillation Nonobstructive atherosclerosis of coronary artery Obesity (BMI 30.0-34.9) Occlusion and stenosis of bilateral carotid arteries Patent foramen ovale Sepsis secondary to UTI Home Medications multivitamin with folic acid 1 tab PO DAILY 10/21/13 [History Last Taken Unknown] acetaminophen 325 mg tablet 650 mg PO DAILY tab 09/09/17 [History Last Taken Unknown] cyanocobalamin (vitamin B-12) 100 mcg tablet 100 mcg PO QDAY 09/09/17 [History Last Taken Unknown] metformin 1,000 mg tablet 1,000 mg PO BID 09/15/17 [History Last Taken 11/25/20] glucosamine 500 mo-rucygrafy-nzwfnclh comp 400 mg-D3 667 unit-C-Mn cap 1 cap PO DAILY 08/26/19 [History Last Taken Unknown] cholecalciferol (vitamin D3) 125 mcg (5,000 unit) capsule 125 mcg PO DAILY 02/29/20 [History Last Taken Unknown] omega-3 fatty acids 1,000 mg capsule 1,000 mg PO DAILY 02/29/20 [History Last Taken Unknown] psyllium husk 0.4 gram capsule 0.4 g PO DAILY 02/29/20 [History Last Taken Unknown] amlodipine 10 mg tablet 10 mg PO QDAY #90 tab 05/01/20 [Rx Last Taken 11/26/20] hydrochlorothiazide 25 mg tablet See Rx Instructions .ROUTE .COMPLEX #90 tab 07/16/20 [Rx Last Taken Unknown] warfarin 1 mg tablet 1 mg PO .COMPLEX #90 tab 10/11/20 [Rx Last Taken 11/21/20] warfarin 2 mg tablet 2 mg PO .COMPLEX #90 tab 10/11/20 [Rx Last Taken Unknown] ferrous sulfate 324 mg (65 mg iron) tablet,delayed release 324 mg PO BID 11/13/20 [History Last Taken Unknown] atorvastatin 80 mg tablet See Rx Instructions .ROUTE .COMPLEX #90 tablet 11/20/20 [Rx Last Taken Unknown] aspirin 81 mg tablet,delayed release 81 mg PO DAILY 11/22/20 [History Last Taken 11/26/20] clopidogrel 75 mg PO DAILY 11/26/20 [History Last Taken 11/26/20] lisinopril 40 mg tablet 40 mg PO QDAY #90 tablet 02/15/21 [Rx Last Taken Unknown] Allergy/AdvReac Type Severity Reaction Status Date / Time No Known Allergies Allergy Verified 03/07/21 19:11 Family History Sister Diabetes Heart disease Brother Colon cancer Father CVA (cerebral vascular accident) Surgical History History of cardioversion (01/11/10) History of knee replacement History of knee replacement procedure of left knee History of left heart catheterization (11/26/20) History of prostatectomy Social History Smoking Status: Never smoker alcohol intake: never caffeine: Yes Type: carbonated beverages and coffee ROS ROS ED Constitutional Constitutional ED: Denies chills or fever(s) Eyes Eyes: Denies change in vision ENT ENT ED: Denies sore throat Cardiovascular Cardiovascular: Reports chest pain Respiratory/Chest Respiratory/Chest: Denies cough or dyspnea Gastrointestinal Gastrointestinal: Reports abdominal pain; Denies diarrhea, nausea or vomiting Genitourinary Genitourinary ED: Denies dysuria Musculoskeletal Musculoskeletal: Denies back pain Integumentary Denies rash Neurologic Neurologic: Denies headache(s) or weakness Psychiatric Psychiatric: Denies anxiety or depression Endocrine Endocrinology: Denies polydipsia or polyuria Allergic/Immunologic Allergic/Immunologic ED: Denies urticaria EXAM Physical Exam Const Vital Signs: 03/07/21 19:11 03/07/21 19:26 03/07/21 21:32 Temperature 98.3 F Temperature Source Temporal Pulse Rate 90 70 Respiratory Rate 16 23 H Respiratory Effort Normal Non-Labored Respiratory Pattern Normal Blood Pressure 133/71 H 123/64 H Blood Pressure Mean 91 83 Pulse Ox 98 95 Oxygen Delivery Method Room Air Room Air Positive well nourished and well developed General Appearance ED: well developed HEENT Reports normocephalic and head/scalp atraumatic Eyes PERRL and EOMs intact bilaterally Neck supple Chest Wall inspection of chest normal and palpation of chest normal Resp normal respiratory effort and clear to auscultation bilaterally Cardio regular rate and regular rhythm GI normal to inspection, nondistended, normoactive bowel sounds Palpation: soft Back/Spine no CVA tenderness Extremity normal to inspection Neuro oriented x3 and no sensory deficits noted Sensorium / Orientation: alert Motor Exam: strength 5/5 throughout Psych mental status grossly normal Skin no rashes or lesions noted MDM MDM MDM Narrative Medical decision making narrative: Patient did report having multiple episodes of brief chest pain today. In light of this he is placed on ekg monitor tech, EKG, chest x-ray, labs obtained. BGT on arrival was only 222. Lab Data Attestation: I reviewed the patient's lab results. Labs: Laboratory Results - last 24 hr 03/07/21 03/07/21 03/07/21 19:36 20:00 20:00 WBC 19.5 H RBC 3.84 L Hgb 10.9 L Hct 34.9 L MCV 90.9 MCH 28.4 MCHC 31.2 L RDW Std Deviation 49.1 H RDW Coeff of Sean 14.8 H Plt Count 313 MPV 10.0 Immature Gran % (Auto) 0.800 Neut % (Auto) 90.1 H Lymph % (Auto) 3.6 L [place] % (Auto) 5.2 Eos % (Auto) 0.1 Baso % (Auto) 0.2 Absolute Neuts (auto) 17.6 H Absolute Lymphs (auto) 0.70 L Nucleated RBC % 0 PT 30.7 H INR 3.1 Sodium Potassium Chloride Carbon Dioxide Anion Gap BUN Creatinine Estim Creat Clear Calc Est GFR (MDRD) Af Amer Est GFR (MDRD) Non-Af BUN/Creatinine Ratio Glucose Calcium Troponin I High Sens Urine Color Urine Clarity Urine pH Ur Specific [place] Urine Protein Urine Glucose (UA) Urine Ketones Urine Occult Blood Urine Nitrite Urine Bilirubin Urine Urobilinogen Ur Leukocyte Esterase Urine RBC Urine WBC Ur Squamous Epith Cells Urine Bacteria Urine Mucus POC Glucose 222 H 03/07/21 03/07/21 20:00 20:04 WBC RBC Hgb Hct MCV MCH MCHC RDW Std Deviation RDW Coeff of Sean Plt Count MPV Immature Gran % (Auto) Neut % (Auto) Lymph % (Auto) [place] % (Auto) Eos % (Auto) Baso % (Auto) Absolute Neuts (auto) Absolute Lymphs (auto) Nucleated RBC % PT INR Sodium 136 Potassium 4.3 Chloride 105 Carbon Dioxide 20.0 L Anion Gap 11 BUN 28 H Creatinine 1.61 H Estim Creat Clear Calc 31.66 Est GFR (MDRD) Af Amer 54 L Est GFR (MDRD) Non-Af 44 L BUN/Creatinine Ratio 17.4 Glucose 200 H Calcium 9.5 Troponin I High Sens 6.7 Urine Color Yellow Urine Clarity Clear Urine pH 5.0 Ur Specific [place] 1.020 Urine Protein 30 H Urine Glucose (UA) Normal Urine Ketones 15 H Urine Occult Blood Negative Urine Nitrite Negative Urine Bilirubin Negative Urine Urobilinogen 1 H Ur Leukocyte Esterase 25 H Urine RBC 0 SEEN Urine WBC 0-5 SEEN Ur Squamous Epith Cells 0-5 SEEN Urine Bacteria 1+ Urine Mucus 0 SEEN POC Glucose Radiography Chest X-Ray - ED: 1 View, Read by ED Physician, Normal, Heart, Lungs and Mediastinum Diagnostic Testing: Radiology Impression Chest X-Ray 03/07/21 20:16 IMPRESSION: Normal x-ray examination of the chest. Electronically Signed: Riccardo Stanford DO at 21:03 EDT Tel [phone], Service support , EKG Initial EKG: Attestation: I personally reviewed and interpreted this EKG as follows: Interpretation: Atrial Fibrillation (A. fib at [address] change.) Treatment and Re-Evaluation Comments:: Patient is given gentle IV fluids. Lab work revealed significant leukocytosis with a white count of 19.5. Patient denies being on steroids. Patient does have acute renal insufficiency with a creatinine 1.66, baseline 0.9. Initial troponin is negative at 6. After discussion with patient and family at bedside. I will speak with hospitalist regarding observation overnight for cycling of enzymes, hydration, and repeat creatinine. Blood cultures will be drawn in light of the patient's leukocytosis. Discharge Plan Triage Chief Complaint: Hyperglycemia ED Provider: Dary Carreon Dx/Rx/DC Orders Clinical Impression: Leukocytosis, Acute renal insufficiency, Chest pain Prescriptions: No Action acetaminophen [Tylenol] 325 mg tablet 650 mg PO DAILY RF: 0 cyanocobalamin (vit B-12) 100 mcg tablet 100 mcg tablet 100 mcg PO QDAY RF: 0 metformin 1,000 mg tablet 1,000 mg PO BID RF: 0 glucosamine 500 lh-mwxhbzdxk-mhabkjfq comp 400 mg-D3 667 unit-C-Mn cap 500-400-667 mg-mg-unit capsule 1 cap PO DAILY RF: 0 cholecalciferol (vitamin D3) 125 mcg (5,000 unit) capsule 125 mcg PO DAILY RF: 0 psyllium husk [Daily Fiber] 0.4 gram capsule 0.4 g PO DAILY RF: 0 omega-3 fatty acids [Fish Oil Concentrate] 1,000 mg capsule 1,000 mg PO DAILY RF: 0 ferrous sulfate 324 mg (65 mg iron) tablet,delayed release (DR/EC) 324 mg PO BID RF: 0 multivitamin with folic acid 1 TABLET tablet 1 tab PO DAILY RF: 0 clopidogrel 75 MG tablet 75 mg PO DAILY RF: 0 amlodipine 10 mg tablet 10 mg PO QDAY Qty: 90 RF: 3 hydrochlorothiazide 25 mg tablet See Rx Instructions .ROUTE .COMPLEX Qty: 90 RF: 3 warfarin 2 mg tablet 2 mg PO .COMPLEX Qty: 90 RF: 3 warfarin 1 mg tablet 1 mg PO .COMPLEX Qty: 90 RF: 3 atorvastatin 80 mg tablet See Rx Instructions .ROUTE .COMPLEX Qty: 90 RF: 4 aspirin [Adult Low Dose Aspirin] 81 mg tablet,delayed release (DR/EC) 81 mg PO DAILY RF: 0 lisinopril 40 mg tablet 40 mg PO QDAY Qty: 90 RF: 4 Primary Care Provider: Yoon Alba NP Referrals: Yoon Alba [employer], [employer] [Primary Care Provider] - Disposition Disposition: Acute Care Hospital [facility]
[2021-03-07 20:09] LABS: Mucous, Urine 0 SEEN /hpf (<or=2+); Red Blood Cells-Urine 0 SEEN /hpf (0-5)
[2021-03-07 20:12] LABS: Absolute Neutrophil Count 17.6 X10^3/uL (2.0-7.7); Basophil# 0.04 X10^3/uL; Basophil% 0.2 % (0-1); Eosinophil# 0.01 X10^3/uL; Eosinophils% 0.1 % (0-5); Hematocrit 34.9 % (40-54); Hemoglobin 10.9 g/dL (13.0-16.5); Lymphocyte % 3.6 % (19-41); Mean Corp Hgb Conc 31.2 g/dL (32-36); Mean Corpuscular Hgb 28.4 pg (27.0-32.0); Mean Corpuscular Volume 90.9 fL (80-94); Monocyte# 1.02 X10^3/uL; Monocyte% 5.2 % (0-10); NRBC Flagged by Analyzer 0 % (0-5); Neutrophil # 17.61 X10^3/uL (2.7-7.7); Neutrophil % 90.1 % (47-70); Platelet Count 313 K/mm3 (150-450); RBC Distribution Width CV 14.8 % (11.6-14.6); RBC Distribution Width SD 49.1 fl (35.1-43.9); Red Blood Count 3.84 M/mm3 (4.6-6.2); White Blood Count 19.5 K/mm3 (4.4-11.0)
--- NOTE | 2021-03-07 20:16 | RAD_ITS ---
STUDY: X-RAY CHEST REASON FOR EXAM: Male, 80 years old. Chest pain TECHNIQUE: Frontal view COMPARISON: 02/25/2021. FINDINGS: The lungs are clear and expanded. There is no demonstrated pleural abnormality. Normal size heart. Normal mediastinum and [place]. Normal visualized pulmonary arteries. Calcified aortic arch and descending thoracic aorta. Degenerative changes of the thoracic spine. Normal visualized ribs, clavicles, and shoulders. There is no demonstrated abnormality of the visualized soft tissue structures of the upper abdomen. RAD/Chest 1 View (Portable) IMPRESSION: Normal x-ray examination of the chest. Electronically Signed: Riccardo Stanford DO at 21:03 EDT Tel [phone], Service support ,
[2021-03-07 20:28] LABS: Color, Urine Yellow (Yellow); Glucose, Dipstick Normal (Normal); Ketone-Dipstick 15 mg/dl (Negative); Leukocyte Esterase-Dipstick 25 /ul (Negative); Nitrite-Dipstick Negative (Negative); Occult Blood-Urine Negative /ul (Negative); Protein-Dipstick 30 mg/dl (Negative); Urine Bilirubin Dipstick Negative (Negative); Urine Clarity Clear (Clear); Urine Urobilinogen 1 mg/dl (Normal)
[2021-03-07 20:28] LABS: International Normalized Ratio 3.1; Prothrombin Time (Protime)PT. 30.7 SECONDS (11.7-14.9)
[2021-03-07 20:38] LABS: Anion Gap 11 (5-15); BUN 28 mg/dL (7-18); BUN/Creat Ratio 17.4 RATIO (10-20); Calcium,Total 9.5 mg/dL (8.5-10.1); Chloride 105 mmol/L (98-107); Creatinine, Serum 1.61 mg/dL (0.70-1.30); EST Glomerular Filtration Rate 44 mL/min (>60); Est Glom Filt Rate - Afr Amer 54 mL/min (>60); Estimated Creatinine Clearance 31.66 ml/min; Glucose 200 mg/dL (74-106); Potassium 4.3 mmol/L (3.5-5.1); Sodium Level 136 mmol/L (136-145); Troponin-I HS 6.7 pg/mL (3.0-78.5)
[2021-03-07 21:05] LABS: Bacteria 1+ /hpf (None Seen); Squamous Epithelial Cells - UA 0-5 SEEN /hpf (0-5); White Blood Cells 0-5 SEEN /hpf (0-5)
[2021-03-07] MEDS: 0.9% Normal Saline 1,000 ML 150 ML IV (21:29)
[2021-03-07 21:32] VITALS: BP 123/64; PULSE 70; RESP 23; O2SAT 95
[2021-03-07 22:30] VITALS: BP 141/64; PULSE 72; RESP 14; TEMP 36.8; O2SAT 96
--- NOTE | 2021-03-07 22:31 | HP.PCM.HOS_ITS ---
HPI - General General Date of Admission: 03/07/21 HPI Narrative VIDHYA YA, is a 80 M with a significant history of diabetes mellitus; hypertension; and hyperlipidemia who presents to the emergency department with malaise that started on the same day of presentation. Associated with his symptoms is lethargy; generalized weakness and poor appetite. Further he has dyspnea with mild exertion. His niece checked his blood sugar and his blood sugar was 522. He then took his Metformin At emergency department his blood sugar was 222. Further, he report that for the past month he has had intermittent chest pain that he rates as 5 out of 10 in severity. His chest pain is not disabling. [facility] Medical History Diabetes mellitus, type II Essential (primary) hypertension History of CVA (cerebrovascular accident) (10/21/13) History of prostate cancer Hyperlipidemia Longstanding persistent atrial fibrillation Nonobstructive atherosclerosis of coronary artery Obesity (BMI 30.0-34.9) Occlusion and stenosis of bilateral carotid arteries Patent foramen ovale Sepsis secondary to UTI Home Medications multivitamin with folic acid 1 tab PO DAILY 10/21/13 [History Last Taken Unknown] acetaminophen 325 mg tablet 650 mg PO DAILY tab 09/09/17 [History Last Taken Unknown] cyanocobalamin (vitamin B-12) 100 mcg tablet 100 mcg PO QDAY 09/09/17 [History Last Taken Unknown] metformin 1,000 mg tablet 1,000 mg PO BID 09/15/17 [History Last Taken 11/25/20] glucosamine 500 js-sjvogyrqn-kbllirhz comp 400 mg-D3 667 unit-C-Mn cap 1 cap PO DAILY 08/26/19 [History Last Taken Unknown] cholecalciferol (vitamin D3) 125 mcg (5,000 unit) capsule 125 mcg PO DAILY 02/29/20 [History Last Taken Unknown] omega-3 fatty acids 1,000 mg capsule 1,000 mg PO DAILY 02/29/20 [History Last Taken Unknown] psyllium husk 0.4 gram capsule 0.4 g PO DAILY 02/29/20 [History Last Taken Unknown] amlodipine 10 mg tablet 10 mg PO QDAY #90 tab 05/01/20 [Rx Last Taken 11/26/20] warfarin 1 mg tablet 1 mg PO .COMPLEX #90 tab 10/11/20 [Rx Last Taken 11/21/20] warfarin 2 mg tablet 2 mg PO .COMPLEX #90 tab 10/11/20 [Rx Last Taken Unknown] ferrous sulfate 324 mg (65 mg iron) tablet,delayed release 324 mg PO BID 11/13/20 [History Last Taken Unknown] aspirin 81 mg tablet,delayed release 81 mg PO DAILY 11/22/20 [History Last Taken 11/26/20] clopidogrel 75 mg PO DAILY 11/26/20 [History Last Taken 11/26/20] lisinopril 40 mg tablet 40 mg PO QDAY #90 tablet 02/15/21 [Rx Last Taken Unknown] atorvastatin See Rx Instructions .ROUTE .COMPLEX 03/07/21 [History Last Taken Unknown] hydrochlorothiazide See Rx Instructions .ROUTE .COMPLEX 03/07/21 [History Last Taken Unknown] Allergy/AdvReac Type Severity Reaction Status Date / Time No Known Allergies Allergy Verified 03/07/21 19:11 Family History Sister Diabetes Heart disease Brother Colon cancer Father CVA (cerebral vascular accident) Surgical History History of cardioversion (01/11/10) History of knee replacement History of knee replacement procedure of left knee History of left heart catheterization (11/26/20) History of prostatectomy Social History household members: spouse housing: other history of recent travel: No Smoking Status: Never smoker alcohol intake: never caffeine: Yes Type: carbonated beverages and coffee ROS ROS Narrative Constitutional: Reports anorexia. Eyes: Denies blurry vision, change in eye color, change in vision, discharge from eye(s), double vision, erythema, eye pain, loss of vision or other HEENT: Denies abnormal hearing, dysphagia, ear pain, epistaxis, headache(s), hearing loss, nasal congestion, nasal discharge, post nasal drip, sinus pressure, sore throat or other Cardiovascular: Report chest pain. Reports dyspnea on exertion, orthopnea and paroxysmal nocturnal dyspnea Respiratory/Chest: Denies cough, excessive phlegm production, shortness of breath with exertion and wheezing Gastrointestinal: Denies abdominal pain, coffee ground emesis, constipation, diarrhea, dyspepsia, hematemesis, hematochezia, loose stools, melena, nausea, vomiting or other Genitourinary: Denies burning urination, difficulty urinating, dysuria, hematuria, nocturia, urinary frequency, urinary hesitancy, urinary incontinence, urinary urgency or other Musculoskeletal: Denies arthralgias, back pain, joint pain, joint stiffness, joint swelling, myalgias, neck pain or other Neurologic: Reports lethargy and malaise. Denies focal weakness, headache(s), numbness, paresthesias, seizure-like activity, seizures, syncope, tingling, t remor(s) or other Psychiatric: Denies anxiety, depression, homicidal ideation, suicidal ideation or other Endocrinology: Denies change in body appearance, cold intolerance, excessive sweating, heat intolerance, polydipsia, polyuria or other Hematologic/Lymphatic: Denies anemia, easy bleeding, easy bruising, lymphadenopathy or other Integumentary: Reports/Denies ulcer on buttocks. Allergic/Immunologic: Denies rhinitis, hives, eczema, asthma or other Vital Signs Vital Signs Vital Signs: 03/07/21 19:11 03/07/21 19:26 03/07/21 21:32 Temperature 98.3 F Temperature Source Temporal Pulse Rate 90 70 Respiratory Rate 16 23 H Respiratory Effort Normal Non-Labored Respiratory Pattern Normal Blood Pressure 133/71 H 123/64 H Blood Pressure Mean 91 83 Pulse Ox 98 95 Oxygen Delivery Method Room Air Room Air Weight Weight: 90.265 kg Body Mass Index (BMI) 34.1 Physical Exam Narrative Physical exam: General: Well-nourished, well-developed, no acute distress Head: Normocephalic, atraumatic, no tenderness Eyes: PERRLA, EOMI ENT, no trauma, moist mucous membranes, no rhinorrhea Neck: Nontender, full range of motion, no spinal tenderness, deformities, step- off CVS: Irregularly irregular rate and rhythm. Respiratory no acute distress, clear to auscultation bilaterally, chest wall nontender, no wheezing Abdomen: Soft, nontender, nondistended, normal bowel sounds, no masses : Deferred Back: Nontender, no CVA tenderness. Extremities: Nontender full range of motion, no trauma Skin: Normal color, no trauma, abrasions Neuro: Alert, oriented, cranial nerves II through XII grossly intact except patient has hoarse voice.. Psychiatry: Normal mood. Normal affect. Not depressed. Not anxious. Results Lab / Micro Data Result Diagrams: 03/07/21 20:00 03/07/21 20:00 Labs: Laboratory Results - last 24 hr 03/07/21 19:36: POC Glucose 222 H 03/07/21 20:00: WBC 19.5 H, RBC 3.84 L, Hgb 10.9 L, Hct 34.9 L, MCV 90.9, MCH 28.4, MCHC 31.2 L, RDW Std Deviation 49.1 H, RDW Coeff of Sean 14.8 H, Plt Count 313, MPV 10.0, Immature Gran % (Auto) 0.800, Neut % (Auto) 90.1 H, Lymph % (Auto) 3.6 L, [place] % (Auto) 5.2, Eos % (Auto) 0.1, Baso % (Auto) 0.2, Absolute Neuts (auto) 17.6 H, Absolute Lymphs (auto) 0.70 L, Nucleated RBC % 0 03/07/21 20:00: PT 30.7 H, INR 3.1 03/07/21 20:00: Sodium 136, Potassium 4.3, Chloride 105, Carbon Dioxide 20.0 L, Anion Gap 11, BUN 28 H, Creatinine 1.61 H, Estim Creat Clear Calc 31.66, Est GFR (MDRD) Af Amer 54 L, Est GFR (MDRD) Non-Af 44 L, BUN/Creatinine Ratio 17.4, Glucose 200 H, Calcium 9.5, Troponin I High Sens 6.7 03/07/21 20:04: Urine Color Yellow, Urine Clarity Clear, Urine pH 5.0, Ur Specific [place] 1.020, Urine Protein 30 H, Urine Glucose (UA) Normal, Urine Ketones 15 H, Urine Occult Blood Negative, Urine Nitrite Negative, Urine Bilirubin Negative, Urine Urobilinogen 1 H, Ur Leukocyte Esterase 25 H, Urine RBC 0 SEEN, Urine WBC 0-5 SEEN, Ur Squamous Epith Cells 0-5 SEEN, Urine Bacteria 1+, Urine Mucus 0 SEEN Radiology Impression Chest X-Ray 03/07/21 20:16 IMPRESSION: Normal x-ray examination of the chest. Electronically Signed: Riccardo Stanford DO at 21:03 EDT Tel [phone], Service support , Assessment & Plan Assessment/Plan (1) Acute renal insufficiency: (2) Chest pain: QUALIFIERS: Chest pain type: unspecified Qualified Code(s): R07.9 - Chest pain, unspecified (3) Leukocytosis: QUALIFIERS: Leukocytosis type: unspecified Qualified Code(s): D72.829 - Elevated white blood cell count, unspecified (4) Diabetes mellitus, type II: QUALIFIERS: Diabetes mellitus state highway police officer insulin use: without state highway police officer use Diabetes mellitus complication status: without complication Qualified Code(s): E11.9 - Type 2 diabetes mellitus without complications PLAN: DON Baseline creatinine of ~1 Creatinine on admission was 1.6. BUN is 28. Review of old records show that this is above his baseline. BUN over creatinine is 17.4. IV hydration ordered. Urine electrolytes ordered. Chest pain Review of records show the patient had a stress at 11/21/2020. Stress test showed gated ejection fraction of 57%. Conclusion was Abnormal pharmacologic myocardial perfusion stress test with evidence of mid anterior ischemia. Atrial fibrillation. Cardiac catheterization on 11/26/2020 was nonrevealing. Medical therapy was recommended. Daily aspirin ordered. Continue home Coumadin. Neutrophilic leukocytosis Impression of chest x-ray by radiology: Normal x-rays admission to chest. Actual chest x-ray image was independently interpreted and I agree with radiologist interpretation. Urinalysis is unrevealing. Blood culture was obtained at emergency department; follow. Review of medical department labs showed white count of 19.5; neutrophils of 90.1%. No bandemia. Likely reactive. Trend. Diabetes mellitus Patient with hyperglycemia on presentation Metformin held. Started on basal, prandial and correction scale insulin. Check A1c. Accu-Chek QA [facility] with correction scale insulin ordered. Debility PT and OT to work with patients. DVT prophylaxis: Not indicated since INR is therapeutic on Coumadin. Coumadin continued. Charges/Coding Multi Select Codes Visit Charges Visit Charges: 74053 Init Hosp L3
[2021-03-07 23:02] VITALS: BP 133/61; PULSE 70; RESP 18; TEMP 36.8; O2SAT 96
[2021-03-07 23:08] VITALS: BMI 34.9
[2021-03-07 23:10] VITALS: PULSE 77
--- NOTE | 2021-03-07 23:24 | EKG12_ITS ---
Test Reason : REPEAT FLOOR Blood Pressure : / mmHG Vent. Rate : 069 BPM Atrial Rate : 068 BPM P-R Int : 000 ms QRS Dur : 092 ms QT Int : 394 ms P-R-T Axes : 000 -02 028 degrees QTc Int : 422 ms Atrial fibrillation Abnormal ECG When compared with ECG of 07-MAR-2021 20:07, MANUAL COMPARISON REQUIRED, DATA IS UNCONFIRMED Confirmed by GERSON WATSON, ALVIN ([id number]), assignment desk editor ESAU ANN ([id number]) on 03/12/2021 9:56:18 AM Referred By: JULIANNA Confirmed By:ALVIN NIETO MD
[2021-03-08 00:05] LABS: Bedside Glucose 117 mg/dL (70-110)
[2021-03-08] MEDS: 0.9% Normal Saline 1,000 ML 75 ML IV ×2 (00:09→12:54)
[2021-03-08 00:26] LABS: Urine Sodium 22 mmol/L (Not Establ.)
[2021-03-08 00:45] LABS: Troponin-I HS 9.4 pg/mL (3.0-78.5)
[2021-03-08 02:47] LABS: Troponin-I HS 8.9 pg/mL (3.0-78.5)
[2021-03-08 03:00] VITALS: PULSE 68
[2021-03-08 05:08] VITALS: BP 144/66; PULSE 60; RESP 18; TEMP 36.8; O2SAT 97
[2021-03-08 05:36] LABS: Absolute Lymphocyte Count 1.61 X10^3/uL (0.83-4.51); Absolute Neutrophil Count 9.8 X10^3/uL (2.0-7.7); Basophil# 0.03 X10^3/uL; Basophil% 0.2 % (0-1); Eosinophil# 0.06 X10^3/uL; Eosinophils% 0.5 % (0-5); Hematocrit 32.2 % (40-54); Hemoglobin 9.9 g/dL (13.0-16.5); Lymphocyte # 1.61 X10^3/ul (0.83-4.51); Lymphocyte % 12.8 % (19-41); Mean Corp Hgb Conc 30.7 g/dL (32-36); Mean Corpuscular Volume 91.2 fL (80-94); Mean Platelet Vol. 10.5 fl (6.2-12.0); Monocyte# 0.99 X10^3/uL; Monocyte% 7.9 % (0-10); NRBC Flagged by Analyzer 0 % (0-5); Neutrophil # 9.83 X10^3/uL (2.7-7.7); Neutrophil % 78.2 % (47-70); Platelet Count 271 K/mm3 (150-450); RBC Distribution Width CV 14.8 % (11.6-14.6); RBC Distribution Width SD 49.2 fl (35.1-43.9); Red Blood Count 3.53 M/mm3 (4.6-6.2); White Blood Count 12.6 K/mm3 (4.4-11.0)
[2021-03-08 05:43] LABS: International Normalized Ratio 3.2; Prothrombin Time (Protime)PT. 32.3 SECONDS (11.7-14.9)
[2021-03-08 05:50] LABS: Anion Gap 8 (5-15); BUN 26 mg/dL (7-18); Calcium,Total 8.6 mg/dL (8.5-10.1); Chloride 108 mmol/L (98-107); Creatinine, Serum 1.24 mg/dL (0.70-1.30); EST Glomerular Filtration Rate 60 mL/min (>60); Est Glom Filt Rate - Afr Amer 72 mL/min (>60); Estimated Creatinine Clearance 41.11 ml/min; Glucose 119 mg/dL (74-106); Sodium Level 139 mmol/L (136-145)
[2021-03-08 07:05] VITALS: PULSE 75
[2021-03-08 08:21] LABS: Hemoglobin A1c 6.5 % (3.8-5.6)
[2021-03-08 08:51] VITALS: BP 126/54; PULSE 72; RESP 16; TEMP 36.7; O2SAT 99
[2021-03-08] MEDS: Aspirin E.C. 81 MG Tablet PO (09:06)
[2021-03-08] MEDS: amLODIPine 10 MG Tablet PO ×2 (09:06)
[2021-03-08] MEDS: Multivitamins,Ther W-Minerals Tablet 1 TABLET PO (09:06)
[2021-03-08] MEDS: Psyllium 1 PACKET PO (09:06)
[2021-03-08] MEDS: Omega-3 Acid Ethyl Esters 1 GM Capsule PO (09:06)
[2021-03-08] MEDS: Cholecalciferol (VIT D3) 25 MCG TABLET (1,000 UNITS) 125 MCG PO (09:07)
[2021-03-08] MEDS: Clopidogrel Bisulfate 75 MG Tablet PO (09:07)
[2021-03-08] MEDS: Acetaminophen 325 MG Tablet 650 MG PO (09:07)
[2021-03-08] MEDS: Insulin Lispro 100 UNIT/ML INSULN.PEN SC ×3 (09:11→12:53)
[2021-03-08 09:20] LABS: Bedside Glucose 171 mg/dL (70-110)
[2021-03-08 11:23] VITALS: PULSE 57
--- NOTE | 2021-03-08 11:55 | CASEMGMT ---
RN CM Face to Face with patient for initial transition planning/care coordination assessment. RN CM introduced self and role at [facility]. Patient sitting in chair, alert and oriented. Patient willing to participate in assessment and is able to answer all questions appropriately. Care providers, pharmacy, and demographics verified. Patient wishes to discharge home, denies need for home health at this time. Patient states he has no further needs or concerns at this time. CM to follow for discharge planning needs that may arise. PCP: Yoon Alba NP Specialists: Raimundo judicial reporter Preferred Pharmacy: [facility] Insurance: [facility], iAgree Prescription Benefit: yes Living Will/HPOA: none LNOK: Living Arrangements: Patient lives with in a mobile home with ramp or 3 steps with railing to enter. Patient states he is independent at home. Transportation: self/niece DME/HHC: Patient states he has walker at home. Patient denies previous HHC or SNF. Disposition Plan: Patient to discharge home with family support and follow-up plans in place. Mercedes TO, RN, CM
[2021-03-08 12:06] LABS: Bedside Glucose 111 mg/dL (70-110)
[2021-03-08] MEDS: Ferrous Sulfate 325 MG Tablet PO (12:54)
--- NOTE | 2021-03-08 14:39 | DCINST_ITS ---
Discharge Instructions Diet Discharge Diet: Low fat / Low cholesterol, 2000 Calorie Control Diet and 2000 mg Sodium Diet Activity Discharge Activity: Return to Normal Activity Follow Up Care Test Results: Test results from this visit will be discussed in further detail at your follow-up appointment, if applicable. Discharge Plan Admission Admit Date/Time: 03/07/21 22:26 Primary Reason for Your Visit: Debility, elevated blood sugar Attending Provider: Toma Simeon Primary Care Provider: Yoon Alba CONTEMPORARY OR MODERN DANCER Instructions Patient Instructions: ED Chest Pain, Noncardiac Additional Instructions / Restrictions: Patient Problems: Altered Health Status related to Hospitalization Patient Goals: *Optimal Level of Health *Keep Appointments *Medication Compliance *Remain Safe Take note of changes to your medications. Monitor your blood glucose 3 times a day. Continue to keep yourself hydrated. Follow-up with your primary care doctor within a week. 2 of your blood pressure medications have been held because of your kidney function. You will need a repeat kidney function to resume these medications. Do not take your Coumadin tonight, resume Coumadin tomorrow. Follow-up with your Coumadin clinic within 3 days. 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 power checker for colonoscopy Discharge Orders/Prescriptions Prescriptions: New sennosides-docusate sodium [Stool Softener-Stimulant Laxat] 8.6-50 mg Tablet 2 tab PO BID PRN PRN (Reason: Constipation) Qty: 60 RF: 0 pantoprazole 40 mg Tablet,Delayed Release (Dr/Ec) 40 mg PO BID 30 Days Qty: 60 RF: 0 glimepiride [Amaryl] 1 mg tablet 1 mg PO DAILY Qty: 1 RF: 0 Continued acetaminophen [Tylenol] 325 mg tablet 650 mg PO DAILY RF: 0 cyanocobalamin (vit B-12) 100 mcg tablet 100 mcg tablet 100 mcg PO QDAY RF: 0 metformin 1,000 mg tablet 1,000 mg PO BID RF: 0 glucosamine 500 qg-ynfpvbolx-dyhymtam comp 400 mg-D3 667 unit-C-Mn cap 500-400-667 mg-mg-unit capsule 1 cap PO DAILY RF: 0 cholecalciferol (vitamin D3) 125 mcg (5,000 unit) capsule 125 mcg PO DAILY RF: 0 omega-3 fatty acids [Fish Oil Concentrate] 1,000 mg capsule 1,000 mg PO DAILY RF: 0 ferrous sulfate 324 mg (65 mg iron) tablet,delayed release (DR/EC) 324 mg PO BID RF: 0 clopidogrel 75 MG tablet 75 mg PO DAILY RF: 0 atorvastatin 80 mg tablet See Rx Instructions .ROUTE .COMPLEX RF: 0 amlodipine 10 mg tablet 10 mg PO QDAY Qty: 90 RF: 3 warfarin 2 mg tablet 2 mg PO .COMPLEX Qty: 90 RF: 3 warfarin 1 mg tablet 1 mg PO .COMPLEX Qty: 90 RF: 3 aspirin [Adult Low Dose Aspirin] 81 mg tablet,delayed release (DR/EC) 81 mg PO DAILY RF: 0 Discontinued hydrochlorothiazide 25 mg tablet See Rx Instructions .ROUTE .COMPLEX RF: 0 lisinopril 40 mg tablet 40 mg PO QDAY Qty: 90 RF: 4 No Action psyllium husk [Daily Fiber] 0.4 gram capsule 0.4 g PO DAILY RF: 0 multivitamin with folic acid 1 TABLET tablet 1 tab PO DAILY RF: 0 Referrals / Follow Up: Yoon Alba CONTEMPORARY OR MODERN DANCER, CONTEMPORARY OR MODERN DANCER-C [Primary Care Provider] - In 1 Week Disposition Disposition (needs filled in before D/C Order can be placed): Home, Self Care
[2021-03-08 14:41] VITALS: BP 128/92; PULSE 53; RESP 16; TEMP 36.8; O2SAT 97
--- NOTE | 2021-03-08 14:46 | DS.PCM_ITS ---
Providers Date of Admission: 03/07/21 Date of Discharge: 03/08/21 Primary Care Physician: ALEX Babcock Reason For Visit: CHEST PAIN, DON Diagnosis Discharge Diagnosis (1) Acute renal insufficiency: Status: Resolved Code(s): N28.9 - Disorder of kidney and ureter, unspecified (2) Chest pain: Status: Resolved Code(s): R07.9 - Chest pain, unspecified Qualifiers: Chest pain type: unspecified Qualified Code(s): R07.9 - Chest pain, unspecified (3) Leukocytosis: Status: Acute Code(s): D72.829 - Elevated white blood cell count, unspecified Qualifiers: Leukocytosis type: unspecified Qualified Code(s): D72.829 - Elevated white blood cell count, unspecified (4) Diabetes mellitus, type II: Status: Chronic Code(s): E11.9 - Type 2 diabetes mellitus without complications Qualifiers: Diabetes mellitus complication status: without complication Diabetes mellitus [facility] insulin use: without [facility] use Qualified Code(s): E11.9 - Type 2 diabetes mellitus without complications Medications at Discharge Home Medications multivitamin with folic acid 1 tab PO DAILY 10/21/13 acetaminophen 325 mg tablet 650 mg PO DAILY tab 09/09/17 cyanocobalamin (vitamin B-12) 100 mcg tablet 100 mcg PO QDAY 09/09/17 metformin 1,000 mg tablet 1,000 mg PO BID 09/15/17 glucosamine 500 wm-zljuackqk-spvwiiaw comp 400 mg-D3 667 unit-C-Mn cap 1 cap PO DAILY 08/26/19 cholecalciferol (vitamin D3) 125 mcg (5,000 unit) capsule 125 mcg PO DAILY 02/29/20 omega-3 fatty acids 1,000 mg capsule 1,000 mg PO DAILY 02/29/20 psyllium husk 0.4 gram capsule 0.4 g PO DAILY 02/29/20 amlodipine 10 mg tablet 10 mg PO QDAY #90 tab 05/01/20 warfarin 1 mg tablet 1 mg PO .COMPLEX #90 tab 10/11/20 warfarin 2 mg tablet 2 mg PO .COMPLEX #90 tab 10/11/20 ferrous sulfate 324 mg (65 mg iron) tablet,delayed release 324 mg PO BID 11/13/20 aspirin 81 mg tablet,delayed release 81 mg PO DAILY 04/08/21 clopidogrel 75 mg PO DAILY 11/26/20 atorvastatin See Rx Instructions .ROUTE .COMPLEX 03/07/21 glimepiride [Amaryl] 1 mg PO DAILY #1 tab 03/08/21 pantoprazole 40 mg PO BID 30 Days #60 tab 03/08/21 sennosides-docusate sodium [Stool Softener-Stimulant Laxat] 2 tab PO BID PRN PRN #60 tab 03/08/21 Hospital Course Operations None Procedures None Summary of Care Provided Minutes Spent on Discharge: 40 Hospital Course: 80 y/o male with multiple co-morbidities who presents with generalised weakness, elevated blood sugar. Patient's admitting blood sugar was 522 at home. In the ED, blood sugar was 222. He was admitted to the PCU. He was started on Lantus and IV fluids. Patient had a recent cardiac catheterization 11/26/20 that was unrevealing. Was continued on his medication. His HbA1c was 6.5. Patient is new to Lantus use and this seems to be a barrier to education with regards to use of long-term insulin. He was stable the next day and he was discharged on his Metformin as well as Amaryl. He knows to follow-up with his primary care doctor with blood sugar checks within 1 week. His primary care doctor's office called and gave results of stool for occult blood which was positive. Patient's hemoglobin has been stable. He was started on pantoprazole bid. He last had a colonoscopy 10 years ago. He will follow up in the outpatient for repeat colonoscopy. He was told to follow-up with his primary care doctor for referral. Physical Exam Narrative Physical exam: General: Alert, Oriented x3, Cooperative, No apparent distress, Well developed, hard of hearing HEENT: Atraumatic Oral: Moist Mucosa Neck: Supple Lungs: Clear to auscultation Cardiovascular: HS I+II, regular, no murmurs Abdomen: Bowel Sounds Present, Soft, Non Tender Extremities: No edema Skin: No rashes, No breakdown Neurological: Grossly intact Psych/Mental Status: Appropriate Medical Records Data Medical Nutrition Assessment Dietitian: Nutrition Therapy Diagnosis Start: 03/08/21 11:28 Freq: Status: Active Protocol: Document 03/08/21 11:39 VINOD (Rec: 03/08/21 11:39 [facility] [id number]) Nutrition Malnutrition Evidence of Malnutrition Exists No Clinical Problem Altered Nutrient-Related Laboratory Values Etiology related to endocrine dysfunction Signs/Symptoms as evidenced by gluc 110 / A1c 6.5 Status Active Problem Recommendation Dietitian Recommendations/Changes Will continue therapeutic diet as ordered (1800 calorie / Cardiac) Weight / BMI Weight Weight: 92.4 kg Body Mass Index (BMI) 34.9 ABG / Lab / Microbiology Data Result Diagrams: 03/08/21 04:48 03/08/21 04:48 Laboratory: Laboratory Results - last 24 hr 03/07/21 19:36: POC Glucose 222 H 03/07/21 20:00: WBC 19.5 H, RBC 3.84 L, Hgb 10.9 L, Hct 34.9 L, MCV 90.9, MCH 28.4, MCHC 31.2 L, RDW Std Deviation 49.1 H, RDW Coeff of Sean 14.8 H, Plt Count 313, MPV 10.0, Immature Gran % (Auto) 0.800, Neut % (Auto) 90.1 H, Lymph % (Auto) 3.6 L, Terrell % (Auto) 5.2, Eos % (Auto) 0.1, Baso % (Auto) 0.2, Absolute Neuts (auto) 17.6 H, Absolute Lymphs (auto) 0.70 L, Nucleated RBC % 0 03/07/21 20:00: PT 30.7 H, INR 3.1 03/07/21 20:00: Sodium 136, Potassium 4.3, Chloride 105, Carbon Dioxide 20.0 L, Anion Gap 11, BUN 28 H, Creatinine 1.61 H, Estim Creat Clear Calc 31.66, Est GFR (MDRD) Af Amer 54 L, Est GFR (MDRD) Non-Af 44 L, BUN/Creatinine Ratio 17.4, Glucose 200 H, Calcium 9.5, Troponin I High Sens 6.7 03/07/21 20:04: Urine Color Yellow, Urine Clarity Clear, Urine pH 5.0, Ur Specific [place] 1.020, Urine Protein 30 H, Urine Glucose (UA) Normal, Urine Ketones 15 H, Urine Occult Blood Negative, Urine Nitrite Negative, Urine Bilirubin Negative, Urine Urobilinogen 1 H, Ur Leukocyte Esterase 25 H, Urine RBC 0 SEEN, Urine WBC 0-5 SEEN, Ur Squamous Epith Cells 0-5 SEEN, Urine Bacteria 1+, Urine Mucus 0 SEEN 03/07/21 20:04: Ur Random Sodium 22, Urine Creatinine 242.00 03/07/21 23:45: Troponin I High Sens 9.4 03/07/21 23:56: POC Glucose 117 H 03/08/21 02:05: Troponin I High Sens 8.9 03/08/21 04:48: WBC 12.6 H, RBC 3.53 L, Hgb 9.9 L, Hct 32.2 L, MCV 91.2, MCH 28.0, MCHC 30.7 L, RDW Std Deviation 49.2 H, RDW Coeff of Sean 14.8 H, Plt Count 271, MPV 10.5, Immature Gran % (Auto) 0.400, Neut % (Auto) 78.2 H, Lymph % (Auto) 12.8 L, Terrell % (Auto) 7.9, Eos % (Auto) 0.5, Baso % (Auto) 0.2, Absolute Neuts (auto) 9.8 H, Absolute Lymphs (auto) 1.61, Nucleated RBC % 0 03/08/21 04:48: PT 32.3 H, INR 3.2 03/08/21 04:48: Sodium 139, Potassium 4.0, Chloride 108 H, Carbon Dioxide 23.0, Anion Gap 8, BUN 26 H, Creatinine 1.24, Estim Creat Clear Calc 41.11, Est GFR (MDRD) Af Amer 72, Est GFR (MDRD) Non-Af 60, BUN/Creatinine Ratio 21.0 H, Glucose 119 H, Calcium 8.6 03/08/21 04:48: Hemoglobin A1c 6.5 H 03/08/21 08:54: POC Glucose 171 H 03/08/21 11:58: POC Glucose 111 H Radiography Diagnostic Testing: Radiology Impression Chest X-Ray 03/07/21 20:16 IMPRESSION: Normal x-ray examination of the chest. Electronically Signed: Riccardo Stanford DO at 21:03 EDT Tel [phone], Service support , D/C Instructions Discharge Diet: Low fat / Low cholesterol, 2000 Calorie Control Diet and 2000 mg Sodium Diet Meaningful Use Info Meaningful Use Diagnoses (Choose all that apply): None applicable Discharge Plan Admission Admit Date/Time: 03/07/21 22:26 Primary Reason for Your Visit: Debility, elevated blood sugar Attending Provider: Toma Simeon Primary Care Provider: Yoon Alba BILLING CLERK Instructions Patient Instructions: ED Chest Pain, Noncardiac Additional Instructions / Restrictions: Patient Problems: Altered Health Status related to Hospitalization Patient Goals: *Optimal Level of Health *Keep Appointments *Medication Compliance *Remain Safe Take note of changes to your medications. Monitor your blood glucose 3 times a day. Continue to keep yourself hydrated. Follow-up with your primary care doctor within a week. 2 of your blood pressure medications have been held be cause of your kidney function. You will need a repeat kidney function to resume these medications. Do not take your Coumadin tonight, resume Coumadin tomorrow. Follow-up with your Coumadin clinic within 3 days. 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 colonoscopy Discharge Orders/Prescriptions Prescriptions: New sennosides-docusate sodium [Stool Softener-Stimulant Laxat] 8.6-50 mg Tablet 2 tab PO BID PRN PRN (Reason: Constipation) Qty: 60 RF: 0 pantoprazole 40 mg Tablet,Delayed Release (Dr/Ec) 40 mg PO BID 30 Days Qty: 60 RF: 0 glimepiride [Amaryl] 1 mg tablet 1 mg PO DAILY Qty: 1 RF: 0 Continued acetaminophen [Tylenol] 325 mg tablet 650 mg PO DAILY RF: 0 cyanocobalamin (vit B-12) 100 mcg tablet 100 mcg tablet 100 mcg PO QDAY RF: 0 metformin 1,000 mg tablet 1,000 mg PO BID RF: [address]-flejnxyut-nxcgbujh comp 400 mg-D3 667 unit-C-Mn cap 500-400-667 mg-mg-unit capsule 1 cap PO DAILY RF: 0 cholecalciferol (vitamin D3) 125 mcg (5,000 unit) capsule 125 mcg PO DAILY RF: 0 omega-3 fatty acids [Fish Oil Concentrate] 1,000 mg capsule 1,000 mg PO DAILY RF: 0 ferrous sulfate 324 mg (65 mg iron) tablet,delayed release (DR/EC) 324 mg PO BID RF: 0 clopidogrel 75 MG tablet 75 mg PO DAILY RF: 0 atorvastatin 80 mg tablet See Rx Instructions .ROUTE .COMPLEX RF: 0 amlodipine 10 mg tablet 10 mg PO QDAY Qty: 90 RF: 3 warfarin 2 mg tablet 2 mg PO .COMPLEX Qty: 90 RF: 3 warfarin 1 mg tablet 1 mg PO .COMPLEX Qty: 90 RF: 3 aspirin [Adult Low Dose Aspirin] 81 mg tablet,delayed release (DR/EC) 81 mg PO DAILY RF: 0 Discontinued hydrochlorothiazide 25 mg tablet See Rx Instructions .ROUTE .COMPLEX RF: 0 lisinopril 40 mg tablet 40 mg PO QDAY Qty: 90 RF: 4 No Action psyllium husk [Daily Fiber] 0.4 gram capsule 0.4 g PO DAILY RF: 0 multivitamin with folic acid 1 TABLET tablet 1 tab PO DAILY RF: 0 Referrals / Follow Up: Yoon Alba BILLING CLERK, BILLING CLERK-C [Primary Care Provider] - In 1 Week Disposition Disposition (needs filled in before D/C Order can be placed): Home, Self Care Charges/Coding Visit Charges Inpatient E&M: 34235 Subs Hosp L2
--- NOTE | 2021-03-08 16:22 | NURSING ---
Late entry: Dr. Simeon E-Scribed meds to Evelyn NEGRO. Patient and family member aware.
== END 2021-03-08 16:21 | disposition home or self-care (01) | DRG 638 ==
LOC: ED 22:22 → PCU 22:31
PROVIDERS: Admitting Provider Hospitalist; Emergency Provider Emergency Medicine; PCP Nurse Practitioner; Visit Provider Internal Medicine
DX: E11.65 Type 2 diabetes mellitus with hyperglycemia (principal); N17.9 Acute kidney failure, unspecified; I48.11 Longstanding persistent atrial fibrillation; D72.829 Elevated white blood cell count, unspecified; R07.9 Chest pain, unspecified; R19.5 Other fecal abnormalities; I10 Essential (primary) hypertension; K59.00 Constipation, unspecified; E78.5 Hyperlipidemia, unspecified; R53.81 Other malaise; Z79.01 Long term (current) use of anticoagulants; Z79.02 Long term (current) use of antithrombotics/antiplatelets; Z79.82 Long term (current) use of aspirin; Z79.84 Long term (current) use of oral hypoglycemic drugs; Z79.899 Other long term (current) drug therapy; Z82.49 Family history of ischemic heart disease and other diseases of the circulatory system
CPT/HCPCS: 36415; 71045; 80048; 81001; 82570; 82962; 83036; 84300; 84484; 85025; 85610; 93005; 99285; J7030; A4216

== ENCOUNTER 2021-03-11 10:40 | Outpatient (RCR) | payer MEDICARE, OTHER, SELFPAY ==
[2020-11-23 08:44] VITALS: BMI 36.7
[2021-02-15 12:49] LABS: Prothrombin Time (Protime)PT. 30.5 SECONDS (11.7-14.9)
[2021-03-01 11:50] LABS: International Normalized Ratio 3.6; Prothrombin Time (Protime)PT. 34.7 SECONDS (11.7-14.9)
[2021-03-11 11:19] LABS: Absolute Lymphocyte Count 1.53 X10^3/uL (0.83-4.51); Basophil# 0.03 X10^3/uL; Basophil% 0.2 % (0-1); Eosinophil# 0.09 X10^3/uL; Eosinophils% 0.7 % (0-5); Hematocrit 32.4 % (40-54); Hemoglobin 10.1 g/dL (13.0-16.5); Lymphocyte # 1.53 X10^3/ul (0.83-4.51); Lymphocyte % 11.2 % (19-41); Mean Corp Hgb Conc 31.2 g/dL (32-36); Mean Corpuscular Volume 89.8 fL (80-94); Mean Platelet Vol. 10.2 fl (6.2-12.0); Monocyte# 1.01 X10^3/uL; Monocyte% 7.4 % (0-10); NRBC Flagged by Analyzer 0 % (0-5); Neutrophil # 10.95 X10^3/uL (2.7-7.7); Neutrophil % 80.1 % (47-70); Platelet Count 301 K/mm3 (150-450); RBC Distribution Width CV 14.5 % (11.6-14.6); RBC Distribution Width SD 47.4 fl (35.1-43.9); Red Blood Count 3.61 M/mm3 (4.6-6.2); White Blood Count 13.7 K/mm3 (4.4-11.0)
[2021-03-11 11:23] LABS: International Normalized Ratio 3.1; Prothrombin Time (Protime)PT. 30.9 SECONDS (11.7-14.9)
== END 2021-03-11 18:00 | disposition home or self-care (01) ==
LOC: LAB 10:40
PROVIDERS: Family Provider Nurse Practitioner; PCP Nurse Practitioner; Referring Provider Internal Medicine Cardiovascular Disease; Visit Provider Internal Medicine Cardiovascular Disease
DX: I48.0 Paroxysmal atrial fibrillation (principal); Z79.01 Long term (current) use of anticoagulants
CPT/HCPCS: 36415; 85025; 85610

== ENCOUNTER 2021-03-17 22:19 | Inpatient (IN) | payer MEDICARE, OTHER, SELFPAY ==
[2021-03-17 22:20] VITALS: BP 122/70; PULSE 97; RESP 16; TEMP 36.4; O2SAT 98; BMI 34.3
[2021-03-17 22:23] VITALS: BP 122/70; PULSE 97; RESP 16; TEMP 36.4; O2SAT 98
[2021-03-17 23:31] LABS: Bedside Glucose 154 mg/dL (70-110)
--- NOTE | 2021-03-17 23:40 | EDS_ITS ---
HPI HPI - GI History of Present Illness Chief Complaint: Abd Pain Informant: patient Abdominal Pain/Flank Pain Onset: Weeks (2) Context: Gradual Onset Timing: Waxes and wanes Quality: Aching Location: Epigastric, RLQ and LLQ Worsened by: Nothing Relieved by: Nothing Nausea/Vomiting/Emesis GI Symptom: Positive for Nausea; Negative for Vomiting Diarrhea/Melena/Hematochezia GI Symptom: Positive for Diarrhea; Negative for Melena and Hematochezia Stool Quality: Positive for Loose and Watery Associated Symptoms Associated Symptoms: Negative for Dysuria and Hematuria Narrative Narrative: Patient presents with abdominal pain, lightheadedness, and chills that has been waxing and waning over the past 1 to 2 weeks. Patient describes the pain as aching. Patient states pain is over the epigastric and lower abdomen. Patient states nothing makes it worse and nothing makes it better. Patient admits to nausea but denies any vomiting. Patient admits to diarrhea but denies any melena or hematochezia. Patient denies any dysuria or hematuria. Patient admits to a fever at home. [facility] Medical History Diabetes mellitus, type II Essential (primary) hypertension History of CVA (cerebrovascular accident) (10/21/13) History of prostate cancer Hyperlipidemia Longstanding persistent atrial fibrillation Nonobstructive atherosclerosis of coronary artery Obesity (BMI 30.0-34.9) Occlusion and stenosis of bilateral carotid arteries Patent foramen ovale Sepsis secondary to UTI Home Medications multivitamin with folic acid 1 tab PO DAILY 10/21/13 [History Last Taken Unknown] acetaminophen 325 mg tablet 650 mg PO DAILY tab 09/09/17 [History Last Taken Unknown] cyanocobalamin (vitamin B-12) 100 mcg tablet 100 mcg PO QDAY 09/09/17 [History Last Taken Unknown] metformin 1,000 mg tablet 1,000 mg PO BID 09/15/17 [History Last Taken 11/25/20] cholecalciferol (vitamin D3) 125 mcg (5,000 unit) capsule 125 mcg PO DAILY 02/29/20 [History Last Taken Unknown] omega-3 fatty acids 1,000 mg capsule 1,000 mg PO DAILY 02/29/20 [History Last Taken Unknown] psyllium husk 0.4 gram capsule 0.4 g PO DAILY 02/29/20 [History Last Taken Unknown] amlodipine 10 mg tablet 10 mg PO QDAY #90 tab 05/01/20 [Rx Last Taken 11/26/20] warfarin 1 mg tablet 1 mg PO .COMPLEX #90 tab 10/11/20 [Rx Last Taken 11/21/20] warfarin 2 mg tablet 2 mg PO .COMPLEX #90 tab 10/11/20 [Rx Last Taken Unknown] ferrous sulfate 324 mg (65 mg iron) tablet,delayed release 324 mg PO BID 11/13/20 [History Last Taken Unknown] aspirin 81 mg tablet,delayed release 81 mg PO DAILY 11/22/20 [History Last Taken 11/26/20] clopidogrel 75 mg PO DAILY 11/26/20 [History Last Taken 11/26/20] atorvastatin See Rx Instructions .ROUTE .COMPLEX 03/07/21 [History Last Taken Unknown] glucosamine 500 fe-hwpfstssw-qkxkzuru comp 400 mg-D3 667 unit-C-Mn cap 1 cap PO DAILY 30 Days #30 cap 03/08/21 [Rx Last Taken Unknown] pantoprazole 40 mg PO BID 30 Days #60 tab 03/08/21 [Rx Last Taken Unknown] sennosides-docusate sodium [Stool Softener-Stimulant Laxat] 2 tab PO BID PRN PRN #20 tab 03/08/21 [Rx Last Taken Unknown] glimepiride [Amaryl] 1 mg PO DAILY 30 Days #30 tab 03/13/21 [Rx Last Taken Unknown] Allergy/AdvReac Type Severity Reaction Status Date / Time No Known Allergies Allergy Verified 03/07/21 19:11 Family History Sister Diabetes Heart disease Brother Colon cancer Father CVA (cerebral vascular accident) Surgical History History of cardioversion (01/11/10) History of knee replacement History of knee replacement procedure of left knee History of left heart catheterization (11/26/20) History of prostatectomy Social History household members: spouse housing: other history of recent travel: No Smoking Status: Never smoker alcohol intake: never caffeine: Yes Type: carbonated beverages and coffee ROS ROS ED Constitutional Constitutional ED: Reports fever(s) and subjective; Denies chills Eyes Eyes: Denies blurry vision or change in vision ENT ENT ED: Denies rhinorrhea or sore throat Cardiovascular Cardiovascular: Reports chest pain; Denies palpitations Respiratory/Chest Respiratory/Chest: Denies cough or dyspnea Gastrointestinal Gastrointestinal: Reports abdominal pain, diarrhea and nausea; Denies vomiting Genitourinary Genitourinary ED: Denies dysuria or hematuria Musculoskeletal Musculoskeletal: Denies back pain or neck pain Integumentary Denies abscess or rash Neurologic Neurologic: Reports headache(s); Denies weakness Allergic/Immunologic Allergic/Immunologic ED: Denies mouth swelling or urticaria EXAM Physical Exam Const Vital Signs: 03/17/21 22:20 03/17/21 22:23 03/17/21 23:04 Temperature 97.6 F L 97.6 F L Temperature Source Temporal Temporal Pulse Rate 97 97 Respiratory Rate 16 16 Respiratory Pattern Tachypnea Blood Pressure 122/70 H 122/70 H Blood Pressure Mean 87 87 Pulse Ox 98 98 Oxygen Delivery Method Room Air Room Air Oxygen Flow Rate (L/min) 03/18/21 00:37 03/18/21 00:38 03/18/21 02:00 Temperature 97.7 F L 97.7 F L 98.9 F Temperature Source Temporal Temporal Temporal Pulse Rate 105 H 105 H 89 Respiratory Rate 26 H 26 H 18 Respiratory Pattern Blood Pressure 121/63 H 121/63 H 123/64 H Blood Pressure Mean 82 82 83 Pulse Ox 90 97 97 Oxygen Delivery Method Room Air Nasal Cannula Nasal Cannula Oxygen Flow Rate (L/min) 2 1 Positive well nourished, well developed and obese General Appearance ED: well developed Nutritional Appearance: obese HEENT Reports moist mucous membranes Neck supple and no JVD Resp normal respiratory effort and clear to auscultation bilaterally Cardio regular rate and no murmurs Rhythm: abnormal rhythm irregularly irregular GI normal to inspection, nondistended, normoactive bowel sounds and non-distended Auscultation: normoactive bowel sounds Palpation: soft and tender epigastric, LLQ, RLQ, LUQ, RUQ, periumbilical and suprapubic; Negative for guarding or rebound tenderness present Extremity normal to inspection General Extremety ED: Negative for edema or tenderness General Extremity: Negative for edema Neuro oriented x3, CN's II-XII intact bilaterally and no sensory deficits noted Sensorium / Orientation: alert Motor Exam: strength 5/5 throughout Psych mental status grossly normal Skin no rashes or lesions noted MDM MDM MDM Narrative Medical decision making narrative: Patient was given IV fluids, morphine, and Zofran here. CBC shows a slight leukocytosis of 11.9. There is also mild anemia with a hemoglobin of 10.1 and hematocrit of 33.2. This is stable compared to prior results. Comprehensive metabolic profile was essentially within normal limits. Urinalysis does not show any evidence of urinary tract infection. CT scan of the abdomen pelvis was obtained. There is significant enteritis versus inflammatory bowel disease. There is also a fluid collection with air raising concern of possible abscess in the anterior pelvis and lower abdomen. Patient is feeling better on reevaluation. Case was discussed with Dr. Cervantes. He was in to evaluate the patient. Patient will be admitted to the hospitalist service. He will consult. Patient was given a dose of Zosyn here. Patient understood and was agreeable with the plan. All questions were answered. Lab Data Attestation: I reviewed the patient's lab results. Labs: Laboratory Results - last 24 hr 03/17/21 03/17/21 03/17/21 22:55 22:55 22:55 WBC 11.9 H RBC 3.58 L Hgb 10.1 L Hct 33.2 L MCV 92.7 MCH 28.2 MCHC 30.4 L RDW Std Deviation 49.7 H RDW Coeff of Sean 14.6 Plt Count 375 MPV 10.1 Immature Gran % (Auto) 0.300 Neut % (Auto) 81.0 H Lymph % (Auto) 13.1 L Kay % (Auto) 5.0 Eos % (Auto) 0.3 Baso % (Auto) 0.3 Absolute Neuts (auto) 9.7 H Absolute Lymphs (auto) 1.56 Nucleated RBC % 0 Sodium 134 L Potassium 4.4 Chloride 102 Carbon Dioxide 21.0 Anion Gap 11 BUN 17 Creatinine 1.01 Estim Creat Clear Calc 50.47 Est GFR (MDRD) Af Amer 92 Est GFR (MDRD) Non-Af 76 BUN/Creatinine Ratio 16.8 Glucose 149 H Calcium 8.9 Magnesium 0.9 L* Total Bilirubin 0.60 AST 19 ALT 28 Alkaline Phosphatase 49 Total Protein 7.1 Albumin 2.6 L Globulin 4.5 H Albumin/Globulin Ratio 0.6 L Urine Color Urine Clarity Urine pH Ur Specific [place] Urine Protein Urine Glucose (UA) Urine Ketones Urine Occult Blood Urine Nitrite Urine Bilirubin Urine Urobilinogen Ur Leukocyte Esterase Urine RBC Urine WBC Ur Squamous Epith Cells Urine Bacteria Urine Mucus POC Glucose 03/17/21 03/17/21 23:20 23:25 WBC RBC Hgb Hct MCV MCH MCHC RDW Std Deviation RDW Coeff of Sean Plt Count MPV Immature Gran % (Auto) Neut % (Auto) Lymph % (Auto) Kay % (Auto) Eos % (Auto) Baso % (Auto) Absolute Neuts (auto) Absolute Lymphs (auto) Nucleated RBC % Sodium Potassium Chloride Carbon Dioxide Anion Gap BUN Creatinine Estim Creat Clear Calc Est GFR (MDRD) Af Amer Est GFR (MDRD) Non-Af BUN/Creatinine Ratio Glucose Calcium Magnesium Total Bilirubin AST ALT Alkaline Phosphatase Total Protein Albumin Globulin Albumin/Globulin Ratio Urine Color Yellow Urine Clarity Sl. Cloudy Urine pH 5.0 Ur Specific [place] 1.030 Urine Protein Negative Urine Glucose (UA) Normal Urine Ketones 15 H Urine Occult Blood Negative Urine Nitrite Negative Urine Bilirubin Negative Urine Urobilinogen 4 H Ur Leukocyte Esterase 25 H Urine RBC 0 SEEN Urine WBC 0-5 SEEN Ur Squamous Epith Cells 0 SEEN Urine Bacteria RARE Urine Mucus 0 SEEN POC Glucose 154 H Radiography Diagnostic Testing: Radiology Impression Abdomen/Pelvis CT 03/18/21 00:10 IMPRESSION: Significant enteritis versus inflammatory bowel disease. Associated focal area of thickening of the foss of the colon at the descending portion which may indicate focal colitis. Cannot entirely exclude partial small bowel obstruction as described versus nonspecific enteritis. Fluid collection with air raising the concern of abscess at the anterior pelvis as described above. Clinical correlation recommended. Ascites. Mild to moderate free fluid in the pelvis. Diffuse stranding of the peritoneal fat as described. Electronically Signed: Anjali Almanzar MD at 2:04 EDT , Service support , ADDENDUM: 03/18/21215 IMPRESSION: Significant enteritis versus inflammatory bowel disease. Associated focal area of thickening of the foss of the colon at the descending portion which may indicate focal colitis. Cannot entirely exclude partial small bowel obstruction as described versus nonspecific enteritis. Fluid collection with air raising the concern of abscess at the anterior pelvis as described above. Clinical correlation recommended. Ascites. Mild to moderate free fluid in the pelvis. Diffuse stranding of the peritoneal fat as described. N.B. : The above Results were Read Back by Anjali Almanzar MD to Dr. Alfie oCbb MD, and understanding confirmed on 03/18/2021 02:10:22 (ET). Electronically Signed: Anjali Almanzar MD at 2:04 EDT , Service support , EKG Initial EKG: Attestation: I personally reviewed and interpreted this EKG as follows: Interpretation: Atrial Fibrillation (85) and Non-Specific ST Changes Prior EKG tracings: available for review Prior: Unchanged (03/07/2021) Treatment and Re-Evaluation Vital Sign Attestation:: Vital signs were reviewed prior to admission. They are stable. Discharge Plan Dx/Rx/DC Orders Clinical Impression: Diverticulitis, Abdominal abscess Disposition Disposition: Acute Care Hospital [facility] Discharge Date/Time: 03/18/21 04:15
[2021-03-17] MEDS: Ondansetron 4 MG/2 ML Vial IV (23:44)
[2021-03-17 23:45] LABS: Absolute Lymphocyte Count 1.56 X10^3/uL (0.83-4.51); Absolute Neutrophil Count 9.7 X10^3/uL (2.0-7.7); Basophil# 0.03 X10^3/uL; Basophil% 0.3 % (0-1); Eosinophil# 0.03 X10^3/uL; Eosinophils% 0.3 % (0-5); Hematocrit 33.2 % (40-54); Hemoglobin 10.1 g/dL (13.0-16.5); Lymphocyte # 1.56 X10^3/ul (0.83-4.51); Lymphocyte % 13.1 % (19-41); Mean Corp Hgb Conc 30.4 g/dL (32-36); Mean Corpuscular Hgb 28.2 pg (27.0-32.0); Mean Corpuscular Volume 92.7 fL (80-94); Mean Platelet Vol. 10.1 fl (6.2-12.0); Monocyte# 0.59 X10^3/uL; NRBC Flagged by Analyzer 0 % (0-5); Neutrophil # 9.66 X10^3/uL (2.7-7.7); Platelet Count 375 K/mm3 (150-450); RBC Distribution Width CV 14.6 % (11.6-14.6); RBC Distribution Width SD 49.7 fl (35.1-43.9); Red Blood Count 3.58 M/mm3 (4.6-6.2); White Blood Count 11.9 K/mm3 (4.4-11.0)
[2021-03-17] MEDS: 0.9% Normal Saline 1,000 ML 1000 ML IV (23:45)
[2021-03-17] MEDS: Morphine 4 MG/ML Syringe IV (23:45)
[2021-03-17 23:56] LABS: ALB/GLOB Ratio 0.6 RATIO (0.9-2.4); AST(SGOT) 19 U/L (15-37); Alanine Aminotransfer ALT/SGPT 28 U/L (16-61); Albumin, Serum 2.6 g/dL (3.2-5.0); Alkaline Phosphatase 49 U/L (45-117); Anion Gap 11 (5-15); BUN 17 mg/dL (7-18); BUN/Creat Ratio 16.8 RATIO (10-20); Calcium,Total 8.9 mg/dL (8.5-10.1); Chloride 102 mmol/L (98-107); Creatinine, Serum 1.01 mg/dL (0.70-1.30); EST Glomerular Filtration Rate 76 mL/min (>60); Est Glom Filt Rate - Afr Amer 92 mL/min (>60); Estimated Creatinine Clearance 50.47 ml/min; Globulin 4.5 g/dL (2.2-4.2); Glucose 149 mg/dL (74-106); Potassium 4.4 mmol/L (3.5-5.1); Protein, Total 7.1 g/dL (6.4-8.2); Sodium Level 134 mmol/L (136-145)
[2021-03-17 23:58] LABS: Mucous, Urine 0 SEEN /hpf (<or=2+); Red Blood Cells-Urine 0 SEEN /hpf (0-5); Squamous Epithelial Cells - UA 0 SEEN /hpf (0-5)
[2021-03-17 23:59] LABS: Color, Urine Yellow (Yellow); Glucose, Dipstick Normal (Normal); Ketone-Dipstick 15 mg/dl (Negative); Leukocyte Esterase-Dipstick 25 /ul (Negative); Nitrite-Dipstick Negative (Negative); Occult Blood-Urine Negative /ul (Negative); Protein-Dipstick Negative (Negative); Urine Bilirubin Dipstick Negative (Negative); Urine Clarity Sl. Cloudy (Clear); Urine Urobilinogen 4 mg/dl (Normal)
[2021-03-18] VITALS (18 sets, daily range): BP systolic 104–155; BP diastolic 55–73; PULSE 78–105; RESP 16–32; TEMP 36.5–38.3; O2SAT 90–98; BMI 36.8
[2021-03-18 00:07] LABS: Bacteria RARE /hpf (None Seen); White Blood Cells 0-5 SEEN /hpf (0-5)
--- NOTE | 2021-03-18 00:10 | CT_ITS ---
We are attempting to reach an attending provider to discuss findings. An addendum with communication details will be sent when the communication is complete. STUDY: CT ABDOMEN AND PELVIS WITH CONTRAST REASON FOR EXAM: Male, 80 years old. Abdominal pain -- IV PO Contrast RADIATION DOSAGE (If Supplied By Facility): CTDIvol = ( 23.49 ) mGy, DLP = ( 1359.13 ) mGycm TECHNIQUE: Transaxial images were obtained from the dome of the diaphragm to the symphysis pubis without oral contrast. Oral and amp; IV Gastrografin and amp; 100mL Isovue-370 was administered. Sagittal and coronal images were reconstructed. Individualized dose optimization techniques were used for this CT. COMPARISON: 09/23/2018. FINDINGS: Mild bilateral lower lobe atelectasis. Cardiac size is normal with coronary artery calcifications. Normal liver. Normal gallbladder and extrahepatic biliary system. Normal spleen. Normal pancreas. Normal bilateral adrenal glands. Right lower renal pole simple cyst measuring 2.8 x 2.6 cm. Mild right perinephric stranding otherwise normal right kidney. Mild left perinephric stranding with left lower renal pole simple cyst measuring 4.5 x 5.0 cm. Otherwise normal left kidney. Normal visualized stomach. There is thickening of the wall throughout the small bowel in the distal ileum and through the mid proximal small bowel distention of the proximal jejunum consistent with enteritis. There is mild thickening of the distal small bowel at the ileocecal valve, combination of findings which may be seen with inflammatory bowel disease. There is proximal distention of the small bowel is up to 3.6 cm, cannot exclude partial small bowel obstruction. The colon is decompressed. There is area of the descending colon best seen on coronal images 56, series 601 with narrowing of the wall of the descending colon junction with sigmoid, cannot this with a mural lesion versus focal colitis. Appendix is not visualized. There is a fluid collection at the anterior aspect of the pelvis just posterior to the abdominal wall with air-fluid level and not within a bowel loop measuring approximately 4.9 x 2.5 cm, measured on image 99, series 2. This extends into the lower pelvis just above the urinary bladder. There is mild to moderate free fluid within the posterior pelvis. There is diffuse atherosclerotic calcification of the abdominal aorta, without a demonstrated aneurysm. Normal inferior vena cava. Normal retroperitoneum. Bladder is decompressed. There is stranding diffusely through the pelvis and upper abdomen. Normal abdominal wall. There are diffuse degenerative changes of the visualized lumbar spine. CT/Abdomen/Pelvis WITH Contrast IMPRESSION: Significant enteritis versus inflammatory bowel disease. Associated focal area of thickening of the foss of the colon at the descending portion which may indicate focal colitis. Cannot entirely exclude partial small bowel obstruction as described versus nonspecific enteritis. Fluid collection with air raising the concern of abscess at the anterior pelvis as described above. Clinical correlation recommended. Ascites. Mild to moderate free fluid in the pelvis. Diffuse stranding of the peritoneal fat as described. Electronically Signed: Anjali Almanzar MD at 2:04 EDT , Service support ,
--- NOTE | 2021-03-18 02:27 | EKG12_ITS ---
Test Reason : DYSRHYTHMIA Blood Pressure : / mmHG Vent. Rate : 085 BPM Atrial Rate : 122 BPM P-R Int : 000 ms QRS Dur : 082 ms QT Int : 348 ms P-R-T Axes : 000 -11 038 degrees QTc Int : 414 ms Atrial fibrillation Nonspecific ST abnormality Abnormal ECG Confirmed by MIKEL WATSON, NINFA ([id number]), image editor ESAU ANN ([id number]) on 03/21/2021 12:41:51 PM Referred By: KAMILA Confirmed By:NINFA MORIN MD
--- NOTE | 2021-03-18 02:52 | HP.PCM.HOS_ITS ---
HPI - General General Date of Service: 03/18/21 Chief Complaint: Abdominal pain, N/V/D HPI Narrative The patient is a 80 y/o M w/ PMHx: Diabetes mellitus type II, HTN, HLD, Hx CVA, Hx prostate CA s/p prostatectomy, Nonobstructive CAD, Obesity, Hx PFO, BL Carotid artery stenosis who presents to the [facility] ED on 03/18/21 with history of significant abdominal discomfort, starting approximately 2 weeks prior, waxing waning, ranging from aching to stabbing primarily in the lower quadrants with associated nausea without emesis and concurrent loose watery stools with e ventual lightheadedness, dizziness as well as concurrent chills/fevers prompting eventual ED presentation. He notes last BM was the evening prior to presentation. He notes he has felt some dyspnea as well with his current presentation. He is currently rating his pain 4/10 in severity. Work-up in the ED included T 97.7, heart rate 105, BP 121/63, respiratory rate 26, initially 90% on room air with improvement to 97% on 2 L nasal cannula, CBC with WBC 11.9, hemoglobin 10.1, platelets 375 with left shift, CMP with sodium 134, glucose 149 otherwise unremarkable hepatic profile, urinalysis not marked appearing, CT abdomen pelvis with significant enteritis versus inflammatory bowel disease with associated focal area of thickening of the foss of the colon at the descending portion possibly focal colitis with inability to entirely exclude partial small bowel obstruction versus nonspecific enteritis, fluid collection with air raising concern for abscess at the anterior pelvis, ascites with mild to moderate free fluid in the pelvis with diffuse stranding of the peritoneal fat. In the ED patient ministered Zosyn, Zofran, morphine as well as normal saline. Rapid Covid antigen testing ordered and pending. COUNT INCLUDES [facility] Medical History Diabetes mellitus, type II Essential (primary) hypertension History of CVA (cerebrovascular accident) (10/21/13) History of prostate cancer Hyperlipidemia Longstanding persistent atrial fibrillation Nonobstructive atherosclerosis of coronary artery Obesity (BMI 30.0-34.9) Occlusion and stenosis of bilateral carotid arteries Patent foramen ovale Sepsis secondary to UTI Home Medications multivitamin with folic acid 1 tab PO DAILY 10/21/13 [History Last Taken Unknown] acetaminophen 325 mg tablet 650 mg PO DAILY tab 09/09/17 [History Last Taken Unknown] cyanocobalamin (vitamin B-12) 100 mcg tablet 100 mcg PO QDAY 09/09/17 [History Last Taken Unknown] metformin 1,000 mg tablet 1,000 mg PO BID 09/15/17 [History Last Taken 11/25/20] cholecalciferol (vitamin D3) 125 mcg (5,000 unit) capsule 125 mcg PO DAILY 02/29/20 [History Last Taken Unknown] omega-3 fatty acids 1,000 mg capsule 1,000 mg PO DAILY 02/29/20 [History Last Taken Unknown] psyllium husk 0.4 gram capsule 0.4 g PO DAILY 02/29/20 [History Last Taken Unknown] amlodipine 10 mg tablet 10 mg PO QDAY #90 tab 05/01/20 [Rx Last Taken 11/26/20] warfarin 1 mg tablet 1 mg PO .COMPLEX #90 tab 10/11/20 [Rx Last Taken 11/21/20] warfarin 2 mg tablet 2 mg PO .COMPLEX #90 tab 10/11/20 [Rx Last Taken Unknown] ferrous sulfate 324 mg (65 mg iron) tablet,delayed release 324 mg PO BID 11/13/20 [History Last Taken Unknown] aspirin 81 mg tablet,delayed release 81 mg PO DAILY 11/22/20 [History Last Taken 11/26/20] clopidogrel 75 mg PO DAILY 11/26/20 [History Last Taken 11/26/20] atorvastatin See Rx Instructions .ROUTE .COMPLEX 03/07/21 [History Last Taken Unknown] glucosamine 500 tr-ogzwllfyo-cregnkgg comp 400 mg-D3 667 unit-C-Mn cap 1 cap PO DAILY 30 Days #30 cap 03/08/21 [Rx Last Taken Unknown] pantoprazole 40 mg PO BID 30 Days #60 tab 03/08/21 [Rx Last Taken Unknown] sennosides-docusate sodium [Stool Softener-Stimulant Laxat] 2 tab PO BID PRN PRN #20 tab 03/08/21 [Rx Last Taken Unknown] glimepiride [Amaryl] 1 mg PO DAILY 30 Days #30 tab 03/13/21 [Rx Last Taken Unknown] Allergy/AdvReac Type Severity Reaction Status Date / Time No Known Allergies Allergy Verified 03/07/21 19:11 Family History Sister Diabetes Heart disease Brother Colon cancer Father CVA (cerebral vascular accident) Surgical History History of cardioversion (01/11/10) History of knee replacement History of knee replacement procedure of left knee History of left heart catheterization (11/26/20) History of prostatectomy Social History household members: spouse housing: other history of recent travel: No Smoking Status: Never smoker alcohol intake: never caffeine: Yes Type: carbonated beverages and coffee ROS ROS Narrative Admission Review of Systems: CONSTITUTIONAL: No weight loss, + fever, chills, weakness or fatigue. HEENT: Eyes: No visual loss, blurred vision, double vision or yellow sclerae. Ears, Nose, Throat: No hearing loss, sneezing, congestion, runny nose or sore throat. SKIN: No rash or itching, lesions, wounds. CARDIOVASCULAR: No chest pain, chest pressure or chest discomfort, palpitations, edema, orthopnea, syncopal events. RESPIRATORY: + shortness of breath, No marked cough or sputum, wheezing, hemoptysis. GASTROINTESTINAL: + anorexia, nausea without vomiting, diarrhea, abdominal pain, No melena, BRBPR. GENITOURINARY: No dysuria, frequency, urgency or retention. NEUROLOGICAL: + LH, dizziness. No headache, syncope, paralysis, ataxia, numbness or tingling in the extremities, focal weakness, change in bowel or bladder control, seizure. MUSCULOSKELETAL: + muscle, back pain, joint pain or stiffness. HEMATOLOGIC: + anemia, bleeding or bruising. LYMPHATICS: No enlarged nodes. No history of splenectomy. PSYCHIATRIC: No history of depression or anxiety. ENDOCRINOLOGIC: No reports of sweating, cold or heat intolerance. No polyuria or polydipsia. ALLERGIES: No history of asthma, hives, eczema or rhinitis. Vital Signs Vital Signs Vital Signs: 03/17/21 22:20 03/17/21 22:23 03/17/21 23:04 Temperature 97.6 F L 97.6 F L Temperature Source Temporal Temporal Pulse Rate 97 97 Respiratory Rate 16 16 Respiratory Pattern Tachypnea Blood Pressure 122/70 H 122/70 H Blood Pressure Mean 87 87 Pulse Ox 98 98 Oxygen Delivery Method Room Air Room Air Oxygen Flow Rate (L/min) 03/18/21 00:37 03/18/21 00:38 03/18/21 02:00 Temperature 97.7 F L 97.7 F L 98.9 F Temperature Source Temporal Temporal Temporal Pulse Rate 105 H 105 H 89 Respiratory Rate 26 H 26 H 18 Respiratory Pattern Blood Pressure 121/63 H 121/63 H 123/64 H Blood Pressure Mean 82 82 83 Pulse Ox 90 97 97 Oxygen Delivery Method Room Air Nasal Cannula Nasal Cannula Oxygen Flow Rate (L/min) 2 1 Weight Weight: 200 lb Body Mass Index (BMI) 34.3 Physical Exam Narrative Physical Examination: General: Awake, alert, oriented x 3 and cooperative, seated upright in the ED, notes pain 4 out of 10, does feel short of breath. Skin: Normal color, normal turgor, no icterus, no cyanosis. HEENT: AT/NC, EOMI, PERRLA, dry MM, very difficult to discern carotid bruits even with history given referred upper airway sounds, no marked JVD noted. Lungs: Diffusely diminished, greater bases, increased respiratory rate, some upper airway sounds secondary to loud breathing outward, no obvious rales, rhonchi or wheezing Heart: Regular rate and rhythm; no gallop, rub audible. Abdomen: Soft, generalized discomfort with palpation primarily worse in the bilateral lower quadrants however no rebound or guarding, no obvious distention, mildly hyperactive bowel sounds, no obvious HSM Extremities: No cyanosis, clubbing, or edema. Neurological: Patient awake, alert, oriented as noted, cognitive function intact; pupils equally reactive to light and accommodation, cranial nerves II- XII grossly normal, moving all 4 extremities, no focal deficits, strength moderately to severely globally decreased secondary to acute presentation. Psychiatric: Affect appears fatigued, appears short of breath, no acute evidence of depressive or anxiety feelings. Results Lab / Micro Data Result Diagrams: 03/17/21 22:55 03/17/21 22:55 Labs: Laboratory Results - last 24 hr 03/17/21 22:55: WBC 11.9 H, RBC 3.58 L, Hgb 10.1 L, Hct 33.2 L, MCV 92.7, MCH 28.2, MCHC 30.4 L, RDW Std Deviation 49.7 H, RDW Coeff of Sean 14.6, Plt Count 375, MPV 10.1, Immature Gran % (Auto) 0.300, Neut % (Auto) 81.0 H, Lymph % (Auto) 13.1 L, [place] % (Auto) 5.0, Eos % (Auto) 0.3, Baso % (Auto) 0.3, Absolute Neuts (auto) 9.7 H, Absolute Lymphs (auto) 1.56, Nucleated RBC % 0 03/17/21 22:55: Sodium 134 L, Potassium 4.4, Chloride 102, Carbon Dioxide 21.0, Anion Gap 11, BUN 17, Creatinine 1.01, Estim Creat Clear Calc 50.47, Est GFR (MDRD) Af Amer 92, Est GFR (MDRD) Non-Af 76, BUN/Creatinine Ratio 16.8, Glucose 149 H, Calcium 8.9, Total Bilirubin 0.60, AST 19, ALT 28, Alkaline Phosphatase 49, Total Protein 7.1, Albumin 2.6 L, Globulin 4.5 H, Albumin/Globulin Ratio 0.6 L 03/17/21 23:20: Urine Color Yellow, Urine Clarity Sl. Cloudy, Urine pH 5.0, Ur Specific [place] 1.030, Urine Protein Negative, Urine Glucose (UA) Normal, Urine Ketones 15 H, Urine Occult Blood Negative, Urine Nitrite Negative, Urine Bilirubin Negative, Urine Urobilinogen 4 H, Ur Leukocyte Esterase 25 H, Urine RBC 0 SEEN, Urine WBC 0-5 SEEN, Ur Squamous Epith Cells 0 SEEN, Urine Bacteria RARE, Urine Mucus 0 SEEN 03/17/21 23:25: POC Glucose 154 H Radiology Impression Abdomen/Pelvis CT 03/18/21 00:10 IMPRESSION: Significant enteritis versus inflammatory bowel disease. Associated focal area of thickening of the foss of the colon at the descending portion which may indicate focal colitis. Cannot entirely exclude partial small bowel obstruction as described versus nonspecific enteritis. Fluid collection with air raising the concern of abscess at the anterior pelvis as described above. Clinical correlation recommended. Ascites. Mild to moderate free fluid in the pelvis. Diffuse stranding of the peritoneal fat as described. Electronically Signed: Anjali Almanzar MD at 2:04 EDT , Service support , ADDENDUM: 03/18/21 0216 IMPRESSION: Significant enteritis versus inflammatory bowel disease. Associated focal area of thickening of the foss of the colon at the descending portion which may indicate focal colitis. Cannot entirely exclude partial small bowel obstruction as described versus nonspecific enteritis. Fluid collection with air raising the concern of abscess at the anterior pelvis as described above. Clinical correlation recommended. Ascites. Mild to moderate free fluid in the pelvis. Diffuse stranding of the peritoneal fat as described. N.B. : The above Results were Read Back by Anjali Almanzar MD to Dr. Alfie Cobb MD, and understanding confirmed on 03/18/2021 02:10:22 (ET). Electronically Signed: Anjali Almanzar MD at 2:04 EDT , Service support , Assessment & Plan Assessment/Plan (1) Intractable abdominal pain: PLAN: The patient is a 80 y/o M w/ PMHx: Diabetes mellitus type II, HTN, HLD, Hx CVA, Hx prostate CA s/p prostatectomy, Nonobstructive CAD, Obesity, Hx PFO, BL Carotid artery stenosis who presents to the [facility] ED on 03/18/21 with history of significant abdominal discomfort, starting approximately 2 weeks prior, waxing waning, ranging from aching to stabbing primarily in the lower quadrants with associated nausea without emesis and concurrent loose watery stools with eventual lightheadedness, dizziness as well as concurrent chills/fevers prompting eventual ED presentation. 1. Acute Sepsis secondary to Acute Intractable abdominal pain secondary to Acute Enteritis with Possible Anterior Pelvic/Lower Abdominal Developing Abscess w/ Suspected Recent Perforation secondary to Acute Diverticulitis, Lower suspici on inflammatory bowel disease: Will admit to PCU status to be cautious given underlying concurrent history and acute presentation, maintain on hydration, monitor I&Os, maintain NPO status w/ bowel rest, will obtain C. difficile assay as well as enteric pathogen given significant diarrhea history, treat with zosyn regimen, IV PPI, anti-emetics, pain regimen PRN, continue Dr. Cervantes general surgery consultation. COVID testing pending. Pending INR, if appropriate given history per discussion with Surgery may consider transition to heparin drip. Likely plan repeat CT A/P in 24-48 hours per discussion with Surgery. 2. History CVA: Given acute presentation as noted, holding Coumadin as well as Plavix, INR pending, continue amlodipine with hold parameters, statin regimen, holding oral diabetic regimen with transition to insulin sliding scale as noted. 3. Nonobstructive CAD: Given acute presentation as noted, holding Coumadin as well as Plavix, continue statin, not on beta-meg nor AVA inhibitor/ARB. Recent 11/26/2020 cardiac catheterization with nonobstructive coronary arteries w ith moderate calcification of the left anterior descending artery and the ostial right coronary artery only with medical therapy recommendation. Recent 11/21/2020 echocardiogram with normal LV size, EF 60%, indeterminate diastolic function, moderately large LA, mild , mean aortic valve gradient 13 mmHg, mild WAGNER. 4. Bilateral carotid disease: Given acute presentation as noted, holding Coumadin as well as Plavix, INR pending, continue hypertensive, diabetic and statin regimen. 04/09/2020 carotid duplex ultrasound with calcific irregular plaque within the proximal right ICA with calcific shadowing, greater than 70% stenosis right internal carotid, less than 50% stenosis right external carotid, occlusion of the left internal carotid, greater than 50% stenosis left external carotid, patent antegrade vertebrals bilaterally with no significant change from 03/18/2019 carotid ultrasound. Pending INR, if appropriate given history per discussion with Surgery may consider transition to heparin drip. 5. Diabetes mellitus type II: Hold oral home regimen, n.p.o. status, maintain on every 6 hours accu checks w/ ISS. 6. Hypertension: Continue home regimen including amlodipine with hold parame ters, PRN hydralazine. 7. Hyperlipidemia: Continue home statin regimen. 8. History of prostate cancer: Status post prostatectomy, remission status. 9. GERD: We will maintain on IV PPI especially with recent + guiac during recent 02/2021 admission. 10. DVT prophylaxis: SCDs, holding Coumadin with INR trending given acute presentation. Pending INR, if appropriate given history per discussion with Surgery may consider transition to heparin drip. 11. CODE status: Patient HCPOA is his per his report and living will is not currently in place he notes. Discussed CODE status at length including difference between FULL code, DNR-CCA and DNR-CC status. Following discussions about the differences in these status, requested Full Code status. Advanced Care Planning Face to Face Time: 16 minutes. Charges/Coding Visit Charges Inpatient E&M: 36455 Init Hosp L3 Procedures Hospitalists Procedures: 32594 Advncd Care Plan 30 Min
--- NOTE | 2021-03-18 03:19 | EX.PCM.CON.S ---
Assessment & Plan Assessment/Plan (1) Diverticulitis: PLAN: I believe the patient had diverticulitis during his last admission that eventually caused perforation. At the time of his previous admission the patient had a white count of 19. He also had elevated glucose and hypotension during that admission. Patient does have a history of diverticulitis in the past in 2019. The patient is complaining of abdominal pain which is not severe. His abdomen is soft but tender and there is no guarding or rebound. I reviewed the patient CT scan which shows fluid in the abdomen as well as stranding and possible early abscess in the anterior abdomen. Patient is on Plavix and Coumadin for carotid artery disease. At this time I believe the patient had remote perforation of his colon and may be forming an abscess. Patient is on several blood thinners so I would recommend transitioning blood thinners to heparin drip and keeping the patient n.p.o. starting antibiotics. I discussed his CT with him and I discussed the possibility of emergency surgery with possible stoma. At this time I believe the perforation is likely healing and the stranding in his abdomen and fluid are reactive. I informed him that if emergency surgery is necessary he would be at elevated risk due to his carotid disease and anticoagulation. Patient will be admitted to the hospital service on antibiotics and closely observe. Currently his vitals are stable and his abdomen is soft with no guarding. Willy Cervantes MD Pager: [facility] [address] [place] [address], [address] [place] [address] Office: HPI Consult Data Date of Consult: 03/18/21 HPI Narrative HPI Narrative: VIDHYA YA, is a 80 M who presents with some abdominal pain. Patient reports that he has been having this for the past week. Patient was recently admitted on March 08 with elevated white count and elevated glucose and hypotension. Patient reports that he has been having on and off low-grade fevers for the past 2 weeks since admission. Patient says that he is having abdominal pain throughout his abdomen. No nausea or vomiting. He does report of last 2 to 3 days he has been having some diarrhea. [facility] Medical History Diabetes mellitus, type II Essential (primary) hypertension History of CVA (cerebrovascular accident) (10/21/13) History of prostate cancer Hyperlipidemia Longstanding persistent atrial fibrillation Nonobstructive atherosclerosis of coronary artery Obesity (BMI 30.0-34.9) Occlusion and stenosis of bilateral carotid arteries Patent foramen ovale Sepsis secondary to UTI Home Medications multivitamin with folic acid 1 tab PO DAILY 10/21/13 [History Last Taken Unknown] acetaminophen 325 mg tablet 650 mg PO DAILY tab 09/09/17 [History Last Taken Unknown] cyanocobalamin (vitamin B-12) 100 mcg tablet 100 mcg PO QDAY 09/09/17 [History Last Taken Unknown] metformin 1,000 mg tablet 1,000 mg PO BID 09/15/17 [History Last Taken 11/25/20] cholecalciferol (vitamin D3) 125 mcg (5,000 unit) capsule 125 mcg PO DAILY 02/29/20 [History Last Taken Unknown] omega-3 fatty acids 1,000 mg capsule 1,000 mg PO DAILY 02/29/20 [History Last Taken Unknown] psyllium husk 0.4 gram capsule 0.4 g PO DAILY 02/29/20 [History Last Taken Unknown] amlodipine 10 mg tablet 10 mg PO QDAY #90 tab 05/01/20 [Rx Last Taken 11/26/20] warfarin 1 mg tablet 1 mg PO .COMPLEX #90 tab 10/11/20 [Rx Last Taken 11/21/20] warfarin 2 mg tablet 2 mg PO .COMPLEX #90 tab 10/11/20 [Rx Last Taken Unknown] ferrous sulfate 324 mg (65 mg iron) tablet,delayed release 324 mg PO BID 11/13/20 [History Last Taken Unknown] aspirin 81 mg tablet,delayed release 81 mg PO DAILY 11/22/20 [History Last Taken 11/26/20] clopidogrel 75 mg PO DAILY 11/26/20 [History Last Taken 11/26/20] atorvastatin See Rx Instructions .ROUTE .COMPLEX 03/07/21 [History Last Taken Unknown] glucosamine 500 jg-kcbtpkoca-gvafhbsk comp 400 mg-D3 667 unit-C-Mn cap 1 cap PO DAILY 30 Days #30 cap 03/08/21 [Rx Last Taken Unknown] pantoprazole 40 mg PO BID 30 Days #60 tab 03/08/21 [Rx Last Taken Unknown] sennosides-docusate sodium [Stool Softener-Stimulant Laxat] 2 tab PO BID PRN PRN #20 tab 03/08/21 [Rx Last Taken Unknown] glimepiride [Amaryl] 1 mg PO DAILY 30 Days #30 tab 03/13/21 [Rx Last Taken Unknown] Allergy/AdvReac Type Severity Reaction Status Date / Time No Known Allergies Allergy Verified 03/07/21 19:11 Family History Sister Diabetes Heart disease Brother Colon cancer Father CVA (cerebral vascular accident) Surgical History History of cardioversion (01/11/10) History of knee replacement History of knee replacement procedure of left knee History of left heart catheterization (11/26/20) History of prostatectomy Social History household members: spouse housing: other history of recent travel: No Smoking Status: Never smoker alcohol intake: never caffeine: Yes Type: carbonated beverages and coffee ROS Constitutional Constitutional: Reports fever(s); Denies anorexia or chills ENT HEENT: Denies abnormal hearing Cardiovascular Cardiovascular: Denies chest pain Respiratory/Chest Respiratory/Chest: Denies cough or dyspnea Gastrointestinal Gastrointestinal: Reports abdominal pain and diarrhea; Denies constipation, nausea, rectal bleeding or vomiting Genitourinary Genitourinary: Denies change in urinary stream Musculoskeletal Musculoskeletal: Denies abnormal gait Integumentary Integumentary: Denies jaundice Psychiatric Psychiatric: Denies anxiety Endocrine Endocrinology: Denies flushing Hematologic/Lymphatic Hematologic/Lymphatic: Reports easy bleeding Physical Exam Const alert and oriented x3 HEENT normocephalic Eyes PERRL Neck full ROM Resp normal respiratory effort Cardio Rate: regular rate Rhythm: abnormal rhythm GI soft to palpation Palpation: tender other (Diffuse tenderness with no guarding or rebound); Negative for guarding Extremity General Extremity: normal exam except as noted Neuro CN's II-XII intact bilaterally Psych mental status grossly normal Lab / Micro Data Result Diagrams: 03/17/21 22:55 03/17/21 22:55 Labs: Laboratory Results - last 24 hr 03/17/21 22:55: WBC 11.9 H, RBC 3.58 L, Hgb 10.1 L, Hct 33.2 L, MCV 92.7, MCH 28.2, MCHC 30.4 L, RDW Std Deviation 49.7 H, RDW Coeff of Sean 14.6, Plt Count 375, MPV 10.1, Immature Gran % (Auto) 0.300, Neut % (Auto) 81.0 H, Lymph % (Auto) 13.1 L, [place] % (Auto) 5.0, Eos % (Auto) 0.3, Baso % (Auto) 0.3, Absolute Neuts (auto) 9.7 H, Absolute Lymphs (auto) 1.56, Nucleated RBC % 0 03/17/21 22:55: Sodium 134 L, Potassium 4.4, Chloride 102, Carbon Dioxide 21.0, Anion Gap 11, BUN 17, Creatinine 1.01, Estim Creat Clear Calc 50.47, Est GFR (MDRD) Af Amer 92, Est GFR (MDRD) Non-Af 76, BUN/Creatinine Ratio 16.8, Glucose 149 H, Calcium 8.9, Total Bilirubin 0.60, AST 19, ALT 28, Alkaline Phosphatase 49, Total Protein 7.1, Albumin 2.6 L, Globulin 4.5 H, Albumin/Globulin Ratio 0.6 L 03/17/21 23:20: Urine Color Yellow, Urine Clarity Sl. Cloudy, Urine pH 5.0, Ur Specific [place] 1.030, Urine Protein Negative, Urine Glucose (UA) Normal, Urine Ketones 15 H, Urine Occult Blood Negative, Urine Nitrite Negative, Urine Bilirubin Negative, Urine Urobilinogen 4 H, Ur Leukocyte Esterase 25 H, Urine RBC 0 SEEN, Urine WBC 0-5 SEEN, Ur Squamous Epith Cells 0 SEEN, Urine Bacteria RARE, Urine Mucus 0 SEEN 03/17/21 23:25: POC Glucose 154 H Radiology Impression Abdomen/Pelvis CT 03/18/21 00:10 IMPRESSION: Significant enteritis versus inflammatory bowel disease. Associated focal area of thickening of the foss of the colon at the descending portion which may indicate focal colitis. Cannot entirely exclude partial small bowel obstruction as described versus nonspecific enteritis. Fluid collection with air raising the concern of abscess at the anterior pelvis as described above. Clinical correlation recommended. Ascites. Mild to moderate free fluid in the pelvis. Diffuse stranding of the peritoneal fat as described. Electronically Signed: Anjali Almanzar MD at 2:04 EDT , Service support , ADDENDUM: 03/18/21 0216 IMPRESSION: Significant enteritis versus inflammatory bowel disease. Associated focal area of thickening of the foss of the colon at the descending portion which may indicate focal colitis. Cannot entirely exclude partial small bowel obstruction as described versus nonspecific enteritis. Fluid collection with air raising the concern of abscess at the anterior pelvis as described above. Clinical correlation recommended. Ascites. Mild to moderate free fluid in the pelvis. Diffuse stranding of the peritoneal fat as described. N.B. : The above Results were Read Back by Anjali Almanzar MD to Dr. Alfie Cobb MD, and understanding confirmed on 03/18/2021 02:10:22 (ET). Electronically Signed: Anjali Almanzar MD at 2:04 EDT , Service support ,
[2021-03-18 03:32] LABS: Magnesium 0.9 mg/dL (1.6-2.6)
[2021-03-18] MEDS: 0.9% Normal Saline 1,000 ML 125 ML IV ×3 (04:56→21:15)
[2021-03-18] MEDS: Magnesium Sulfate 4gm/100mL 4 GM/100 ML IV.SOLN. IV (04:59)
[2021-03-18] MEDS: 0.9% Saline Lock 10 ML Syringe IV ×2 (05:03→15:12)
[2021-03-18 05:16] LABS: Bedside Glucose 87 mg/dL (70-110)
[2021-03-18 06:04] LABS: Absolute Lymphocyte Count 0.97 X10^3/uL (0.83-4.51); Absolute Neutrophil Count 10.6 X10^3/uL (2.0-7.7); Basophil# 0.02 X10^3/uL; Basophil% 0.2 % (0-1); Hematocrit 32.6 % (40-54); Hemoglobin 9.9 g/dL (13.0-16.5); Lymphocyte # 0.97 X10^3/ul (0.83-4.51); Lymphocyte % 8.1 % (19-41); Mean Corp Hgb Conc 30.4 g/dL (32-36); Mean Corpuscular Hgb 27.7 pg (27.0-32.0); Mean Corpuscular Volume 91.1 fL (80-94); Mean Platelet Vol. 10.2 fl (6.2-12.0); Monocyte# 0.38 X10^3/uL; Monocyte% 3.2 % (0-10); NRBC Flagged by Analyzer 0 % (0-5); Neutrophil # 10.56 X10^3/uL (2.7-7.7); Neutrophil % 88.2 % (47-70); POSITIVE MORPHOLOGY YES; Platelet Count 328 K/mm3 (150-450); RBC Distribution Width CV 14.6 % (11.6-14.6); RBC Distribution Width SD 48.6 fl (35.1-43.9); Red Blood Count 3.58 M/mm3 (4.6-6.2)
[2021-03-18 06:16] LABS: International Normalized Ratio 4.3; Prothrombin Time (Protime)PT. 40.4 SECONDS (11.7-14.9)
[2021-03-18 06:20] LABS: Differential Indicated SCAN CRITERIA MET
[2021-03-18 06:29] LABS: ALB/GLOB Ratio 0.6 RATIO (0.9-2.4); AST(SGOT) 23 U/L (15-37); Alanine Aminotransfer ALT/SGPT 27 U/L (16-61); Albumin, Serum 2.2 g/dL (3.2-5.0); Alkaline Phosphatase 37 U/L (45-117); Anion Gap 9 (5-15); BUN 19 mg/dL (7-18); BUN/Creat Ratio 17.9 RATIO (10-20); Calcium,Total 8.4 mg/dL (8.5-10.1); Chloride 105 mmol/L (98-107); Creatinine, Serum 1.06 mg/dL (0.70-1.30); EST Glomerular Filtration Rate 72 mL/min (>60); Est Glom Filt Rate - Afr Amer 87 mL/min (>60); Estimated Creatinine Clearance 48.09 ml/min; Glucose 80 mg/dL (74-106); Magnesium 1.3 mg/dL (1.6-2.6); Potassium 4.5 mmol/L (3.5-5.1); Protein, Total 6.2 g/dL (6.4-8.2); Sodium Level 133 mmol/L (136-145)
--- NOTE | 2021-03-18 06:32 | RAD_ITS ---
STUDY: X-RAY CHEST REASON FOR EXAM: Male, 80 years old. Dyspnea TECHNIQUE: Single AP portable view of the chest. COMPARISON: 03/07/2021 FINDINGS: The lungs are clear and expanded. There is no demonstrated pleural abnormality. Normal size heart. Normal mediastinum and lourdes. Normal visualized pulmonary arteries. Normal visualized aortic arch and descending thoracic aorta. Normal visualized thoracic spine. Normal visualized ribs, clavicles, and shoulders. There is no demonstrated abnormality of the visualized soft tissue structures of the upper abdomen. RAD/Chest 1 View (Portable) IMPRESSION: Normal x-ray examination of the chest. Electronically Signed: Amos Newton MD at 10:07 EDT Tel , Service support ,
--- NOTE | 2021-03-18 07:01 | CDU_ITS ---
Reason For Study: CAROTID STENOSIS Rt. Velocities/BP Lt. Velocities/BP Prox CCA 113.9/20.0 cm/sec. Prox CCA 50.4/5.4 cm/sec. Mid CCA 96.9/20.0 cm/sec. Mid CCA 63.6/0.0 cm/sec. Dist CCA 109.9/22.6 cm/sec. Dist CCA 51.5/0.0 cm/sec. Prox ICA 278.1/66.3 cm/sec. KNOWN TOTAL OCCLUSION. Mid ICA 105.2/37.8 cm/sec. Prox ECA 207.5/7.5 cm/sec. Dist ICA 138.8/48.2 cm/sec. Lt. Vert. 116.1/26.1 cm/sec. Rt. ICA/CCA = 278.1/113.9=2.4. Prox ECA 110.7/4.7 cm/sec. Rt. Vert. 57.2/18.5 cm/sec. Right Extracranial There is heterogeneous, irregular atherosclerotic plaque noted in the right common carotid artery. There is heterogeneous, irregular atherosclerotic plaque noted in the right internal carotid artery. There is heterogeneous, irregular atherosclerotic plaque noted in the right external carotid artery. Antegrade flow is noted in the right vertebral artery. Left Extracranial There is heterogeneous, irregular atherosclerotic plaque noted in the left common carotid artery. KNOWN OCCLUSION OF ICA. There is homogeneous, smooth atherosclerotic plaque noted in the left external carotid artery. Antegrade flow is noted in the left vertebral artery. Procedure Carotid Duplex 27397. This is a Carotid Duplex examination using B-mode, color flow and specral Doppler. Exam performed portable in patient room. VL/Carotid Duplex Ultrasound Interpretation Summary Irregular calcific plaque right carotid bulb and proximal internal carotid rajwinder ry Greater than 70% stenosis right internal carotid artery. The velocity increase in the right internal carotid artery may be compensatory secondary to left carotid occlusion. Less than 50% stenosis right external carotid artery Extensive plaque and no flow noted in the left internal carotid artery consiste nt with known left internal carotid artery occlusion Greater than 50% stenosis left external carotid artery Patent and antegrade bilateral vertebrals Ordering Physician: Willy Cervantes Referring Physician: Yoon Alba Performed By: Zora Nickerson RVT, RDCS and Student
[2021-03-18 07:34] LABS: Lactic Acid 1.5 mmol/L (0.4-1.9)
[2021-03-18 10:31] LABS: Magnesium 2.2 mg/dL (1.6-2.6)
[2021-03-18 12:15] LABS: Bedside Glucose 98 mg/dL (70-110)
--- NOTE | 2021-03-18 15:25 | PN.HOSP_ITS ---
Subjective Subjective Still with abdominal pain, though may be slightly better. Objective Data Objective Data Vital Signs: Vital Signs Temp Pulse Resp BP Pulse Ox 37.9 C H 85 24 H 114/61 96 03/18/21 08:20 03/18/21 13:00 03/18/21 08:55 03/18/21 08:20 03/18/21 08:55 Oxygen Flow Rate (L/min) 2 Oxygen Delivery Method Nasal Cannula Weight: 95.2 kg Body Mass Index (BMI) 36.8 Intake & Output: Intake and Output for Last 24 Hours 03/16/21 03/17/21 03/18/21 23:59 23:59 23:59 Intake Total 2470.5 / 2470.5 Balance 2470.5 / 2470.5 Medical Nutrition Assessment Dietitian: Nutrition Therapy Diagnosis Start: 03/18/21 09:59 Freq: Status: Active Protocol: Document 03/18/21 14:30 RMA (Rec: 03/18/21 14:31 RMA [id number]) Nutrition Malnutrition Evidence of Malnutrition Exists No Clinical Problem Altered GI Function Etiology related to inflammation/ diverticulitis Signs/Symptoms as evidenced by NPO status Status Active Problem Recommendation Dietitian Recommendations/Changes Continue NPO until medically able to advance diet. Suggest advance diet as tolerated to Transitional with goal diet of 1800 calorie; carbohydrate-controlled; cardiac. ONS as needed once able to take PO nutrition. Consider parenteral nutrition support as indicated if unable to advance diet in 24-72 hours. Lab / Micro Data Result Diagrams: 03/18/21 05:38 03/18/21 05:38 Labs: Laboratory Results - last 24 hr 03/17/21 22:55: WBC 11.9 H, RBC 3.58 L, Hgb 10.1 L, Hct 33.2 L, MCV 92.7, MCH 28.2, MCHC 30.4 L, RDW Std Deviation 49.7 H, RDW Coeff of Sean 14.6, Plt Count 375, MPV 10.1, Immature Gran % (Auto) 0.300, Neut % (Auto) 81.0 H, Lymph % (Auto) 13.1 L, [place] % (Auto) 5.0, Eos % (Auto) 0.3, Baso % (Auto) 0.3, Absolute Neuts (auto) 9.7 H, Absolute Lymphs (auto) 1.56, Nucleated RBC % 0 03/17/21 22:55: Sodium 134 L, Potassium 4.4, Chloride 102, Carbon Dioxide 21.0, Anion Gap 11, BUN 17, Creatinine 1.01, Estim Creat Clear Calc 50.47, Est GFR (MDRD) Af Amer 92, Est GFR (MDRD) Non-Af 76, BUN/Creatinine Ratio 16.8, Glucose 149 H, Calcium 8.9, Total Bilirubin 0.60, AST 19, ALT 28, Alkaline Phosphatase 49, Total Protein 7.1, Albumin 2.6 L, Globulin 4.5 H, Albumin/Globulin Ratio 0.6 L 03/17/21 22:55: Magnesium 0.9 L* 03/17/21 23:20: Urine Color Yellow, Urine Clarity Sl. Cloudy, Urine pH 5.0, Ur Specific [place] 1.030, Urine Protein Negative, Urine Glucose (UA) Normal, Urine Ketones 15 H, Urine Occult Blood Negative, Urine Nitrite Negative, Urine Bilirubin Negative, Urine Urobilinogen 4 H, Ur Leukocyte Esterase 25 H, Urine RBC 0 SEEN, Urine WBC 0-5 SEEN, Ur Squamous Epith Cells 0 SEEN, Urine Bacteria RARE, Urine Mucus 0 SEEN 03/17/21 23:25: POC Glucose 154 H 03/18/21 05:07: POC Glucose 87 03/18/21 05:38: WBC 12.0 H, RBC 3.58 L, Hgb 9.9 L, Hct 32.6 L, MCV 91.1, MCH 27. 7, MCHC 30.4 L, RDW Std Deviation 48.6 H, RDW Coeff of Sean 14.6, Plt Count 328, MPV 10.2, Immature Gran % (Auto) 0.300, Neut % (Auto) 88.2 H, Lymph % (Auto) 8.1 L, [place] % (Auto) 3.2, Eos % (Auto) 0.0, Baso % (Auto) 0.2, Absolute Neuts (auto) 10.6 H, Absolute Lymphs (auto) 0.97, Nucleated RBC % 0 03/18/21 05:38: PT 40.4 H, INR 4.3 H* 03/18/21 05:38: Sodium 133 L, Potassium 4.5, Chloride 105, Carbon Dioxide 19.0 L , Anion Gap 9, BUN 19 H, Creatinine 1.06, Estim Creat Clear Calc 48.09, Est GFR (MDRD) Af Amer 87, Est GFR (MDRD) Non-Af 72, BUN/Creatinine Ratio 17.9, Glucose 80, Calcium 8.4 L, Magnesium 1.3 L, Total Bilirubin 0.80, AST 23, ALT 27, Alkaline Phosphatase 37 L, Total Protein 6.2 L, Albumin 2.2 L, Globulin 4.0, Albumin/Globulin Ratio 0.6 L 03/18/21 07:00: Lactic Acid 1.5 03/18/21 10:00: Magnesium 2.2 03/18/21 11:35: POC Glucose 98 Micro: Microbiology 03/18/21 02:34 Mucosa - Nasopharyngeal SARS-CoV-2 Antigen (Rapid) - Final Radiography Diagnostic Testing: Radiology Impression Abdomen/Pelvis CT 03/18/21 00:10 IMPRESSION: Significant enteritis versus inflammatory bowel disease. Associated focal area of thickening of the foss of the colon at the descending portion which may indicate focal colitis. Cannot entirely exclude partial small bowel obstruction as described versus nonspecific enteritis. Fluid collection with air raising the concern of abscess at the anterior pelvis as described above. Clinical correlation recommended. Ascites. Mild to moderate free fluid in the pelvis. Diffuse stranding of the peritoneal fat as described. Electronically Signed: Anjali Almanzar MD at 2:04 EDT , Service support , ADDENDUM: 03/18/21215 IMPRESSION: Significant enteritis versus inflammatory bowel disease. Associated focal area of thickening of the foss of the colon at the descending portion which may indicate focal colitis. Cannot entirely exclude partial small bowel obstruction as described versus nonspecific enteritis. Fluid collection with air raising the concern of abscess at the anterior pelvis as described above. Clinical correlation recommended. Ascites. Mild to moderate free fluid in the pelvis. Diffuse stranding of the peritoneal fat as described. N.B. : The above Results were Read Back by Anjali Almanazr MD to Dr. Alfie Cobb MD, and understanding confirmed on 03/18/2021 02:10:22 (ET). Electronically Signed: Anjali Almanzar MD at 2:04 EDT , Service support , Chest X-Ray 03/18/21 06:32 IMPRESSION: Normal x-ray examination of the chest. Electronically Signed: Amos Newton MD at 10:07 EDT Tel , Service support , Carotid Duplex 03/18/21 07:01 Interpretation Summary Irregular calcific plaque right carotid bulb and proximal internal carotid artery Greater than 70% stenosis right internal carotid artery. The velocity increase in the right internal carotid artery may be compensatory secondary to left carotid occlusion. Less than 50% stenosis right external carotid artery Extensive plaque and no flow noted in the left internal carotid artery consistent with known left internal carotid artery occlusion Greater than 50% stenosis left external carotid artery Patent and antegrade bilateral vertebrals ___ Ordering Physician: Willy Cervantes Referring Physician: Yoon Alba Performed By: Krishan AMBRIZ [facility] and Student Physical Exam Const alert HEENT Head and Scalp: normocephalic Resp normal respiratory effort, no use of accessory muscles and clear to auscultation bilaterally Cardio regular rate, regular rhythm and S1 normal heart sound GI GI Narrative: diffusely tender. no guarding. hypoactive BS. Extremity normal to inspection Skin no rashes or lesions noted Neuro Sensorium / Orientation: awake and alert Assessment & Plan Assessment/Plan (1) Abdominal abscess: (2) Colitis: (3) Enteritis: (4) Carotid stenosis: PLAN: 1. Pelvic abscess 2/2 colitis/enteritis medical mgmt at present DW Dr. Cervantes, monitor for now, but could require surgery plan: continue pip/tazo, NPO 2. Enteritis/colitis treat as above 3. carotid stenosis greater than 70% stenosis on right. Chronic left carotid occlusion. Similiar to 04/09/[address] Bhatia in past and not deemed a candidate in past for CEA 4. coagulopathy 2/2 warfarin received x1 vitamin K recheck INR today 5. afib warfarin held 6. Hypertensive urgency stable amlodipine held 7. VTE prophylaxis: anticoagulated 8. CAD LHC in 11/2020 showing non-obstructive CAD ASA, clopidogrel currently held. DW patient's dtr at bedside. Greater than 35 minutes of which greater than 50% of the time was counseling pt about current plan for abscess/colitis. Surgery is an option, but last resort. Charges/Coding Visit Charges Inpatient E&M: 43016 Subs Hosp L3
--- NOTE | 2021-03-18 15:30 | CASEMGMT ---
Readmission chart review: Pt initially admitted 03/07-03/08/21 for CP, DON and was discharged home. Pt returned to [facility] ED on for abd pain for 2 weeks. Pt admitted to PCU for Acute sepsis, perf'd diverticulitis. Pt to go to OR with Dr. Cervantes on 03/19 for perf'd diverticulitis. CM to follow for any PT/OT evals and any further discharge planning/needs. SStlivia CLAYTON CM
[2021-03-18 16:39] LABS: International Normalized Ratio 2.7
[2021-03-18 17:50] LABS: Bedside Glucose 112 mg/dL (70-110)
[2021-03-18] MEDS: Acetaminophen 325 MG Tablet 650 MG PO (18:01)
--- NOTE | 2021-03-18 20:50 | NURSING ---
Primary RN Dulce Cardoso noted that zosyn that was scheduled at 1400 was hung but not running. She started that bag to run at approximately 2030. Pharmacy was notified as we requested guidance on the 2200 dose and the 0600 dose. Pharmacist stated that we should chart against the 2200 dose.
[2021-03-18] MEDS: Atorvastatin Calcium 80 MG Tablet PO (21:15)
[2021-03-18 21:31] LABS: Bedside Glucose 94 mg/dL (70-110)
[2021-03-19] VITALS (27 sets, daily range): BP systolic 99–133; BP diastolic 48–78; PULSE 78–96; RESP 14–24; TEMP 36.1–37.5; O2SAT 92–98; BMI 36.6
--- NOTE | 2021-03-19 | IMM_PTH ---
PATIENT: VIDHYA YA LOC: [facility] U#:[id number] AGE/SX: 80/M ROOM: [facility] RE03/18/[address]: Dr. Faizan Ugalde MD : 1940 BED: 1 DIS: 03/29/2021 SPEC #: [id number] RECD: 03/22/21 10:49 STATUS: JAIRON REQ #: [id number] MORE: 03/19/21 00:[address]: Willy Cervantes DEPT: IMMUNOHISTOCHEMISTRY RECD BY: Katarina Andujar ENTERED: 03/22/21 10:51 SP TYPE: IMMUNO OTHR DR: MD Dr. Yokasta Cassidy MD Dr. Bruce Arthur, MD Dr. Derek Brown, DO Dr. Eric Jopperi, DO Christina Muller, SALES AND MARKETING MANAGER-C Yoon Alba SALES AND MARKETING MANAGER-C Tissues: Sigmoid colon biopsy Procedures: MSH2 (add) MLH-1 (add) MSH6 (add) Anti-PMS2 (add) CD31 (add) DELGADO-2 (add) HER2 HIEN (add) P53 (add) FACTOR VIII (add) KI-67 (initial) Comments: @ Ordering doctor for KI67 edited from to @ by PRATEEK at 03/22/21 1055 @ Ordering doctor for MSH2. edited from to DR.ACALAB Santos by PRATEEK at 03/22/21 1055 @ Ordering doctor for MLH1. edited from to DR.ACALAB Santos by PRATEEK at 03/22/21 1055 @ Ordering doctor for MSH6. edited from to DR.ACALAB Santos by PRATEEK at 03/22/21 1055 @ Ordering doctor for PMS2. edited from to DR.ACALAB Santos by PRATEEK at 03/22/21 1055 @ Ordering doctor for CD31. edited from to DR.ACALAB Santos by PRATEEK at 03/22/21 1055 @ Ordering doctor for DELGADO-2. edited from to DR.ACALAB Santos by PRATEEK at 03/22/21 1055 @ Ordering doctor for HER2. edited from to DR.ACALAB Santos by PRATEEK at 03/22/21 1055 @ Ordering doctor for P53. edited from to DR.ACALAB Santos by PRATEEK at 03/22/21 1055 @ Ordering doctor for FACTOR VIII. edited from to DR.ACALAB Santos by PRATEEK at 03/22/21 1055 @ Submitting doctor edited from to DR.ACALAB Santos by RGOOD at 03/22/21 1055 PHYSICIAN & [place] [id number] SPECIMEN INFORMATION: Tissue Source: Sigmoid colon Clinical Info: Perforated diverticulitis with peritonitis Specimen Number: [id number] #5 CPT code: 33222, 35306 x9 METHODOLOGY: Deparaffinized sections of prefer/formalin-fixed tissue or PAP/DQ stained slides are incubated with monoclonal/polyclonal antibodies/oligonucleotide probes. Localization is made via biotin free immunoperoxidase method. Appropriate controls are performed and reacted as expected. Results on target cell population are indicated in the following table: RESULTS: ANTIBODY / CLONE RESULT Block 5 Ki-67 (30-9) positive, >90% P53 (DO-7) negative DELGADO-2 (SP21) positive MLH-1 (M1) positive MSH2 (25D12) positive MSH6 (44) positive PMS2 (MIU0192) positive Her-2neu (CB11) negative CD31 (KATIE/70A) negative Factor VIII (R Ag) negative These tests were developed and their performance characteristics determined by [facility]. They may not have been cleared or approved by the U.S. Food and Drug Administration. The FDA has determined that such clearance or approval is not necessary. The above immunohistochemical/dualISH markers are ordered and reviewed by the Pathologist. INTERPRETATION: Sigmoid colon, colectomy: Adenocarcinoma. Result of Microsatellite Instability Study: Negative (no loss of mismatch protein; no microsatellite instability detected). No evidence of vascular invasion. AM:samuel 03/25/2021 Case has been reviewed in consultation with Dr. Talley who concurs with the above diagnosis. IDC:[id number]
[2021-03-19] MEDS: 0.9% Normal Saline 1,000 ML 125 ML IV ×3 (05:12→19:32)
[2021-03-19 05:16] LABS: Bedside Glucose 108 mg/dL (70-110)
[2021-03-19 05:40] LABS: Absolute Lymphocyte Count 1.05 X10^3/uL (0.83-4.51); Absolute Neutrophil Count 18.4 X10^3/uL (2.0-7.7); Basophil# 0.04 X10^3/uL; Basophil% 0.2 % (0-1); Eosinophil# 0.03 X10^3/uL; Eosinophils% 0.1 % (0-5); Hematocrit 34.9 % (40-54); Hemoglobin 10.8 g/dL (13.0-16.5); Lymphocyte # 1.05 X10^3/ul (0.83-4.51); Lymphocyte % 5.2 % (19-41); Mean Corp Hgb Conc 30.9 g/dL (32-36); Mean Corpuscular Volume 90.4 fL (80-94); Mean Platelet Vol. 10.2 fl (6.2-12.0); Monocyte# 0.45 X10^3/uL; Monocyte% 2.2 % (0-10); NRBC Flagged by Analyzer 0 % (0-5); Neutrophil # 18.39 X10^3/uL (2.7-7.7); Neutrophil % 91.3 % (47-70); Platelet Count 324 K/mm3 (150-450); RBC Distribution Width CV 14.8 % (11.6-14.6); RBC Distribution Width SD 49.2 fl (35.1-43.9); Red Blood Count 3.86 M/mm3 (4.6-6.2); White Blood Count 20.2 K/mm3 (4.4-11.0)
[2021-03-19 05:43] LABS: International Normalized Ratio 1.3; Prothrombin Time (Protime)PT. 15.6 SECONDS (11.7-14.9)
[2021-03-19 06:03] LABS: BUN 24 mg/dL (7-18); Creatinine, Serum 0.93 mg/dL (0.70-1.30); Estimated Creatinine Clearance 54.81 ml/min; Glucose 101 mg/dL (74-106)
[2021-03-19 06:04] LABS: ALB/GLOB Ratio 0.4 RATIO (0.9-2.4); AST(SGOT) 30 U/L (15-37); Alanine Aminotransfer ALT/SGPT 27 U/L (16-61); Albumin, Serum 1.7 g/dL (3.2-5.0); Alkaline Phosphatase 48 U/L (45-117); Anion Gap 8 (5-15); BUN/Creat Ratio 25.9 RATIO (10-20); Calcium,Total 8.3 mg/dL (8.5-10.1); Chloride 108 mmol/L (98-107); EST Glomerular Filtration Rate 84 mL/min (>60); Est Glom Filt Rate - Afr Amer 101 mL/min (>60); Globulin 4.2 g/dL (2.2-4.2); Potassium 4.8 mmol/L (3.5-5.1); Protein, Total 5.9 g/dL (6.4-8.2); Sodium Level 133 mmol/L (136-145)
--- NOTE | 2021-03-19 08:12 | NURSING ---
3230 dr. ardon in and determined based on lab findings that pt needing to have surgery this am. talking with anesthesia on phone and pt calling family to inform. pt with large formed bm this am and speciman sent to lab. pt reports feeling mushroom spawn maker and better this am despite wbc count and continued low grade temp. report called to joseluis in ac and pt with scds applied and to or via bed.
--- NOTE | 2021-03-19 08:30 | COL_PTH ---
PATIENT: VIDHYA YA LOC: [facility] U#:[id number] AGE/SX: 80/M ROOM: [facility] RE03/18/[address]: Dr. Faizan Ugalde MD : 1940 BED: 1 DIS: 03/29/2021 SPEC #: [id number] RECD: 03/19/21 13:49 STATUS: JAIRON RE #: [id number] MORE: 03/19/21 08:[address]: Willy Cervantes DEPT: SURGICAL PATHOLOGY RECD BY: Luna Johnson ENTERED: 03/20/21 09:42 SP TYPE: COLON OTHR DR: MD Dr. Yokasta Cassidy MD Dr. Bruce Arthur, MD Dr. Derek Brown, DO Dr. Eric Jopperi, DO Christina Muller VICE PRESIDENT-C Yoon Alba NP-C Tissues: Colon, NOS Procedures: Surgery Specimen Level Comments: @ Ordering doctor for SUV edited from to @ palmira CHANDRA at 03/20/21 1413 @ Submitting doctor edited from to @ palmira CHANDRA at 03/20/21 1413 HEADER OPERATION: Open sigmoid colectomy with colostomy PRE-OP DIAGNOSIS: Perforated diverticulitis with peritonitis TISSUE SUBMITTED: Sigmoid colon MICROSCOPIC DIAGNOSIS Sigmoid colon, segmental colectomy: Invasive moderately differentiated adenocarcinoma. See cancer checklist below. AM:samuel 03/21/2021 COMMENT COLON CANCER SUMMARY Procedure: Sigmoid colectomy Tumor size: 5 cm in greatest dimension Macroscopic tumor perforation: Present Histologic type: Adenocarcinoma Histologic grade: G2 (moderately differentiated) Tumor extension: Tumor invades through muscularis propria and into subserosal fat. Margins: The proximal and distal mucosal margins are free of carcinoma. Treatment effect: Unknown Lymphvascular invasion: Not present Perineural invasion: Present Tumor deposits: Not identified Regional lymph nodes: 1 out of 1 lymph node negative for metastatic carcinoma. Ancillary studies: See microsatellite instability study by IHC ([id number]) for complete details. Negative (no loss of mismatch protein; no microsatellite instability detected). Additional pathologic findings: Acute and chronic inflammation and micro abscess formation within the pericolic fat. PATHOLOGIC STAGE: T3 N0 Mx The above summary is in compliance with [employer] [place] [employer] (CAP) Cancer Protocols Checklist and [place] [employer] Committee on Cancer (AJCC), Staging Manual, 8th Ed. This case is discussed with Dr. Cervantes on 03/21/[address] Gutiérrez. Case has been reviewed in consultation with Dr. Talley who concurs with the above diagnosis. IDC:SJ MICROSCOPIC DESCRIPTION Slides are reviewed. GROSS DESCRIPTION Received in fixative is one container labeled with the patient's name and designated sigmoid colon. The specimen consists of a previously, partially opened segment of colon measuring 14 cm in length. The attached pericolonic adipose tissue shows marked congestion and covered with galaviz, purulent exudate. Both resection margins are stapled. 3 cm away from one resection and 6 cm away from the other resection margin, there is a narrow, congested and hemorrhagic area in the mucosal tissue measuring 5 cm in greatest length. Sections of the congested, hemorrhagic mucosa shows indurated wall. Sections of the rest of the specimen of colon reveal multiple diverticulum. Also present in the container are two detached pieces of adipose tissue with an area covered with galaviz, purulent exudate measuring in aggregate 5 x 4 x 1 cm. Sections of pericolonic adipose tissue do not reveal any obviously enlarged lymph node. Payroll Technician sections are submitted in ten cassettes as follows: 1 - resection margins, 25??congested and hemorrhagic mucosa with underlying indurated wall, 6 & 7 - diverticula, 8 & 9 - pericolonic adipose tissue covered with galaviz, purulent exudate and area of hemorrhage, 10 - detached pieces of pericolonic adipose tissue. / SJ:samuel 03/20/21 TC:0 CPT: 19272
--- NOTE | 2021-03-19 08:36 | PCM.PN.SRG ---
Subjective Subjective Patient did have bowel movement but also had low-grade fevers overnight Objective Data Objective Data Vital Signs: Vital Signs Temp Pulse Resp BP Pulse Ox 99.5 F H 80 24 H 126/78 H 94 03/19/21 08:16 03/19/21 08:16 03/19/21 08:16 03/19/21 08:16 03/19/21 08:16 Oxygen Flow Rate (L/min) 2 Oxygen Delivery Method Nasal Cannula Weight: 213 lb 6.519 oz Body Mass Index (BMI) 36.6 Intake & Output: Intake and Output for Last 24 Hours 03/17/21 03/18/21 03/19/21 23:59 23:59 23:59 Intake Total 3638.92 / 3638.92 1004.17 / 1004.17 Balance 3638.92 / 3638.92 1004.17 / 1004.17 Medical Nutrition Assessment Dietitian: Nutrition Therapy Diagnosis Start: 03/18/21 09:59 Freq: Status: Active Protocol: Document 03/18/21 14:30 RMA (Rec: 03/18/21 14:31 RMA [id number]) Nutrition Malnutrition Evidence of Malnutrition Exists No Clinical Problem Altered GI Function Etiology related to inflammation/ diverticulitis Signs/Symptoms as evidenced by NPO status Status Active Problem Recommendation Dietitian Recommendations/Changes Continue NPO until medically able to advance diet. Suggest advance diet as tolerated to Transitional with goal diet of 1800 calorie; carbohydrate-controlled; cardiac. ONS as needed once able to take PO nutrition. Consider parenteral nutrition support as indicated if unable to advance diet in 24-72 hours. Lab / Micro Data Result Diagrams: 03/19/21 05:04 03/19/21 05:10 Labs: Laboratory Results - last 24 hr 03/18/21 10:00: Magnesium 2.2 03/18/21 11:35: POC Glucose 98 03/18/21 15:52: PT 28.0 H, INR 2.7 03/18/21 17:44: POC Glucose 112 H 03/18/21 21:20: POC Glucose 94 03/19/21 05:04: WBC 20.2 H, RBC 3.86 L, Hgb 10.8 L, Hct 34.9 L, MCV 90.4, MCH 28.0, MCHC 30.9 L, RDW Std Deviation 49.2 H, RDW Coeff of Sean 14.8 H, Plt Count 324, MPV 10.2, Immature Gran % (Auto) 1.000 H, Neut % (Auto) 91.3 H, Lymph % (Auto) 5.2 L, [place] % (Auto) 2.2, Eos % (Auto) 0.1, Baso % (Auto) 0.2, Absolute Neuts (auto) 18.4 H, Absolute Lymphs (auto) 1.05, Nucleated RBC % 0 03/19/21 05:08: POC Glucose 108 03/19/21 05:10: PT 15.6 H, INR 1.3 03/19/21 05:10: Sodium 133 L, Potassium 4.8, Chloride 108 H, Carbon Dioxide 17.0 L, Anion Gap 8, BUN 24 H, Creatinine 0.93, Estim Creat Clear Calc 54.81, Est GFR (MDRD) Af Amer 101, Est GFR (MDRD) Non-Af 84, BUN/Creatinine Ratio 25.9 H, Glucose 101, Calcium 8.3 L, Total Bilirubin 0.50, AST 30, ALT 27, Alkaline Phosphatase 48, Total Protein 5.9 L, Albumin 1.7 L, Globulin 4.2, Albumin/Globulin Ratio 0.4 L Micro: Microbiology 03/18/21 02:34 Mucosa - Nasopharyngeal SARS-CoV-2 Antigen (Rapid) - Final Radiography Diagnostic Testing: Radiology Impression Chest X-Ray 03/18/21 06:32 IMPRESSION: Normal x-ray examination of the chest. Electronically Signed: Amos Newton MD at 10:07 EDT Tel , Service support , Carotid Duplex 03/18/21 07:01 Interpretation Summary Irregular calcific plaque right carotid bulb and proximal internal carotid artery Greater than 70% stenosis right internal carotid artery. The velocity increase in the right internal carotid artery may be compensatory secondary to left carotid occlusion. Less than 50% stenosis right external carotid artery Extensive plaque and no flow noted in the left internal carotid artery consistent with known left internal carotid artery occlusion Greater than 50% stenosis left external carotid artery Patent and antegrade bilateral vertebrals Ordering Physician: Willy Cervantes Referring Physician: Yoon Alba Performed By: Zora Nickerson RVT, RDCS and Student Physical Exam Const oriented x3 and no apparent distress Resp normal respiratory effort GI soft to palpation Palpation: tender other (Lower abdomen and epigastric area) Assessment & Plan Assessment/Plan (1) Abdominal abscess: (2) Diverticulitis: PLAN: The patient was given medication to reverse his INR yesterday. Patient reports that his pain is slightly improved but his white count is significantly more elevated and he is already have fevers. I believe the patient's abdominal exam is unreliable due to his diabetes. The patient was here a week ago with a white count 19 and no abdominal pain I believe the problems were starting back then. I discussed his lab work with him and his febrile state. I discussed his options with him including surgery or continued observation. After hearing all the options and risk the patient wanted to treat this more aggressively and wanted surgery. I discussed surgery with the patient in detail. I believe the patient has perforated sigmoid diverticulitis with abscess. There is fluid up around his liver and throughout the abdomen. I believe the abscess is not drainable percutaneously. I discussed laparoscopic sigmoid colectomy with possible stoma. I discussed the risks of the surgery including but not limited to bleeding, infection, injury to surrounding organs such as the bowel, ureter, bladder or great vessels. I also explained his increased risk of bleeding due to being on Plavix. The patient also has significant carotid and coronary disease. I discussed with him that there are significant risks of heart attack and stroke during surgery or the perioperative period. I also discussed transfer to tertiary care center but currently all the tertiary care centers in the near area are full and having several day wait for transfer. After discussing all these risks with the patient and his and niece they all came to the agreement to proceed with surgery. Patient will be moved to the ICU postoperatively for observation and cardiology will be consulted. Willy Cervantes MD Pager: [facility] [address] [place] [address], [address] [place] [address] Office:
--- NOTE | 2021-03-19 10:54 | CASEMGMT ---
RN SINGH NOTE: Pt screened with [facility] Palliative Care Screening Tool for strata 3 and readmission, pt did not meet criteria. Bobbi TO RN CM
--- NOTE | 2021-03-19 11:39 | RAD_ITS ---
STUDY: X-RAY CHEST REASON FOR EXAM: Male, 80 years old. Respiratory failure TECHNIQUE: Single AP portable view of the chest. COMPARISON: Yesterday FINDINGS: All since yesterday''s study, patient has been intubated, tip of the ET tube is 5 cm above the samy, NG tube tip is in the body of the stomach. EKG leads overlie the chest. Lungs are expanded, more conspicuous bilateral opacifications noted since yesterday''s study. Small left pleural effusion. Findings can be seen with multifocal pneumonitis but also with with drug interaction/toxicity Normal size heart. Normal mediastinum and lourdes. Normal visualized pulmonary arteries. There is atherosclerotic calcification of the aortic arch with tortuosity. There are diffuse degenerative changes of the visualized thoracic spine. Normal visualized ribs, clavicles, and shoulders. There is no demonstrated abnormality of the visualized soft tissue structures of the upper abdomen. RAD/Chest 1 View (Portable) IMPRESSION: Interstitial and airspace opacifications have become more conspicuous than on the previous study. Differential as described above ET tube tip is 5 cm above the samy in satisfactory position Electronically Signed: Tonio Vasquez MD at 13:06 EDT , Service support ,
--- NOTE | 2021-03-19 11:40 | OP.PCM_ITS ---
Problems Associated Problem List Diagnoses (1) Perforation of sigmoid colon due to diverticulitis: Report of Operation Date of Procedure: 03/19/21 Pre-Operative Diagnosis: Diverticulitis with peritonitis Post-Operative Diagnosis: Sigmoid diverticulitis with peritonitis and abscess Surgery/Procedure Performed:: Sigmoid colectomy with end colostomy and Presley's procedure Description of Surgical Findings:: Purulent material throughout the abdomen with interloop abscesses and tightly adherent sigmoid colon to the left lateral abdominal sidewall with abscess and perforation Specimen's removed: Sigmoid colon Drains: TIM to bulb suction Estimated Blood Loss (mL): 20 Description of Procedure: Patient was brought back to the operating room and general anesthesia was induced. A Gant catheter was placed. Rectal area was lavaged with saline and Betadine solution. The abdomen was then prepped and draped in usual sterile fashion. A midline incision was made superior to the umbilicus and the fascia was elevated and incised. A port was placed into the abdomen and the abdomen was insufflated. There was purulent material throughout the abdomen and no way to proceed laparoscopically. The laparoscopic port was then removed and a midline incision was created from just above the umbilicus to the suprapubic area. This was deepened to the fascia the fascia was incised using letter cautery with a hand guarding the bowel. The abscess cavities and interloop abscesses were broken up and the purulent material suctioned. There is 1200 cc of purulent material in the abdomen. Some of this fluid was sent for culture. There appeared to be perforation of the sigmoid colon with tight adherence to the left lateral sidewall of the abdomen. The patient was placed in Trendelenburg position and the lateral white line of Toldt of the descending colon was taken down until the firm area was met. In the same fashion the rectum was identified and traced up to the loop of bowel that was perforated. Using blunt dissection was dissected away from the lateral sidewall. A brianne perforation was identified. Distal to this area in the rectosigmoid junction an area was made in the mesentery and a stapler was used to take down the rectum. Two #1 Prolene sutures were placed on the staple line of the rectum. Next proximal to the inflamed area in the same fashion an Lone[place] stapler was used to divide the bowel. Using Enseal the inflamed bowel was removed from its mesentery. There was good hemostasis. The abdomen was then irrigated with 3 L of saline and suctioned dry. There was good hemostasis. Next a colostomy site was chosen and the skin was removed using electrocautery. Electrocautery was used to dissect down the fascia and the fascia was incised in a cruciate fashion and the muscle was divided and the posterior rectus sheath was incised. The opening was dilated using index finger and middle finger and the bowel was brought through this opening. Next a 15 [place] round drain was placed through a small stab incision in the right lower quadrant and placed into the pelvis and sutured to the skin using 3-0 nylon suture. The fascia was then closed using #1 PDS suture from the top and bottom meeting in the middle. For Telfa vianney were placed into the midline incision and the skin was stapled. Local anesthetic was injected. Next the stoma was matured. The ecchymotic area of the distal colon was removed and the serosa and mucosa were approximated to the skin circumferentially using interrupted 3-0 Vicryl sutures. Stoma appliance was placed. Dressings were placed. TIM was placed to bulb suction. Patient was then taken to ICU intubated. Admit VTE Documentation VTE Mechan Device Prophylaxis: SCD's
[2021-03-19] MEDS: Propofol 10MG/Ml 1,000 MG/100 ML Bottle 14.5 MG CONT INF (12:15)
[2021-03-19 13:10] LABS: Base Excess -8 mmol/L (-2 to +2); Blood Gas Specimen Type ART; FI02 40; Mode AC; O2 Delivery Device Adult Vent; PEEP 5; PO2 69 mmHG (75-100); RR 14; SITE Art Line; SO2 92 % (95-99); Total Carbon Dioxide 19 mmol/L; Vt 450; pCO2 35.2 mmHg (35-45); pH 7.32 (7.35-7.45)
--- NOTE | 2021-03-19 14:01 | PN.HOSP_ITS ---
Subjective Subjective Underwent surgery with open colectomy with end colostomy and Presley's procedure. Transferred to ICU on ventilator. Objective Data Objective Data Vital Signs: Vital Signs Temp Pulse Resp BP Pulse Ox 37.1 C 87 17 102/61 94 03/19/21 12:15 03/19/21 13:30 03/19/21 13:30 03/19/21 13:30 03/19/21 13:30 Oxygen Flow Rate (L/min) 2 Oxygen Delivery Method Mechanical Ventilator Weight: 96.8 kg Body Mass Index (BMI) 36.6 Intake & Output: Intake and Output for Last 24 Hours 03/17/21 03/18/21 03/19/21 23:59 23:59 23:59 Intake Total 3638.92 / 3638.92 1466.67 / 1466.67 Output Total 145 / 145 Balance 3638.92 / 3638.92 1321.67 / 1321.67 Medical Nutrition Assessment Dietitian: Nutrition Therapy Diagnosis Start: 03/18/21 09:59 Freq: Status: Active Protocol: Document 03/18/21 14:30 RMA (Rec: 03/18/21 14:31 RMA [id number]) Nutrition Malnutrition Evidence of Malnutrition Exists No Clinical Problem Altered GI Function Etiology related to inflammation/ diverticulitis Signs/Symptoms as evidenced by NPO status Status Active Problem Recommendation Dietitian Recommendations/Changes Continue NPO until medically able to advance diet. Suggest advance diet as tolerated to Transitional with goal diet of 1800 calorie; carbohydrate-controlled; cardiac. ONS as needed once able to take PO nutrition. Consider parenteral nutrition support as indicated if unable to advance diet in 24-72 hours. Lab / Micro Data Result Diagrams: 03/19/21 05:04 03/19/21 05:10 Labs: Laboratory Results - last 24 hr 03/18/21 15:52: PT 28.0 H, INR 2.7 03/18/21 17:44: POC Glucose 112 H 03/18/21 21:20: POC Glucose 94 03/19/21 05:04: WBC 20.2 H, RBC 3.86 L, Hgb 10.8 L, Hct 34.9 L, MCV 90.4, MCH 28.0, MCHC 30.9 L, RDW Std Deviation 49.2 H, RDW Coeff of Sean 14.8 H, Plt Count 324, MPV 10.2, Immature Gran % (Auto) 1.000 H, Neut % (Auto) 91.3 H, Lymph % (Auto) 5.2 L, [place] % (Auto) 2.2, Eos % (Auto) 0.1, Baso % (Auto) 0.2, Absolute Neuts (auto) 18.4 H, Absolute Lymphs (auto) 1.05, Nucleated RBC % 0 03/19/21 05:08: POC Glucose 108 03/19/21 05:10: PT 15.6 H, INR 1.3 03/19/21 05:10: Sodium 133 L, Potassium 4.8, Chloride 108 H, Carbon Dioxide 17.0 L, Anion Gap 8, BUN 24 H, Creatinine 0.93, Estim Creat Clear Calc 54.81, Est GFR (MDRD) Af Amer 101, Est GFR (MDRD) Non-Af 84, BUN/Creatinine Ratio 25.9 H, Glucose 101, Calcium 8.3 L, Total Bilirubin 0.50, AST 30, ALT 27, Alkaline Phosphatase 48, Total Protein 5.9 L, Albumin 1.7 L, Globulin 4.2, Albumin/Globulin Ratio 0.4 L 03/19/21 08:40: Blood Type A POSITIVE, Antibody Screen NEGATIVE, Crossmatch See Detail Micro: Microbiology 03/19/21 07:30 Stool Enteric Bacteriology - Final 03/19/21 07:30 Stool C. difficile DNA Amplification - Final 03/18/21 02:34 Mucosa - Nasopharyngeal SARS-CoV-2 Antigen (Rapid) - Final ABG Data ABG results: ABG 03/19/21 13:07 Specimen Type ART Sample Site Art Line pH 7.32 L Bicarbonate Actual 18.0 L Total CO2 19 Base Excess -8 L O2 Saturation 92 L O2 % 40 ABG pCO2 35.2 ABG pO2 69 L Respiration Rate 14 O2 Delivery Device Adult Vent Vent Mode AC Tidal Volume 450 POC PEEP 5 Radiography Diagnostic Testing: Radiology Impression Carotid Duplex 03/18/21 07:01 Interpretation Summary Irregular calcific plaque right carotid bulb and proximal internal carotid artery Greater than 70% stenosis right internal carotid artery. The velocity increase in the right internal carotid artery may be compensatory secondary to left carotid occlusion. Less than 50% stenosis right external carotid artery Extensive plaque and no flow noted in the left internal carotid artery consistent with known left internal carotid artery occlusion Greater than 50% stenosis left external carotid artery Patent and antegrade bilateral vertebrals Ordering Physician: Willy Cervantes Referring Physician: Yoon Alba Performed By: Krishan AMBRIZ RDCS, Zora and Student Chest X-Ray 03/19/21 11:39 IMPRESSION: Interstitial and airspace opacifications have become more conspicuous than on the previous study. Differential as described above ET tube tip is 5 cm above the smay in satisfactory position Electronically Signed: Tonio Vasquez MD at 13:06 EDT , Service support , Physical Exam Const Constitutional Narrative: intubated and sedated. afebrile. HEENT Head and Scalp: normocephalic Resp normal respiratory effort, no use of accessory muscles and clear to auscultation bilaterally Cardio regular rate, regular rhythm, S1 normal heart sound and S2 normal heart sound GI GI Narrative: hypoactive BS. dressing overlying abdomen (did not remove). stoma LLQ. Extremity normal to inspection Assessment & Plan Assessment/Plan (1) Abdominal abscess: (2) Colitis: (3) Enteritis: (4) Carotid stenosis: QUALIFIERS: Laterality: right Qualified Code(s): I65.21 - Occlusion and stenosis of right carotid artery PLAN: 1. 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 Copious purulent material throughout. plan: continue pip/tazo, NPO, additional mgmt per surgery 2. respiratory failure maintained on ventilator after extensive surgery maintaining good pusle ox on 40% fiO2 CCM on consult 3. carotid stenosis greater than 70% stenosis on right. Chronic left carotid occlusion. Similiar to 04/09/[address] Bhtaia in past and not deemed a candidate in past for CEA 4. coagulopathy resolved with 2 doses of 5mg of vitamin K 5. afib warfarin held currently off anticoagulants. resume when ok with general surgery. 6. Hypertensive urgency stable amlodipine held 7. VTE prophylaxis: SCDs 8. CAD LHC in 11/2020 showing non-obstructive CAD ASA, clopidogrel currently held. Resume when ok with general surgery 9. mild noted on 2d echo from 11/21/2020 outpt follow up with cardiology Charges/Coding Visit Charges Inpatient E&M: 95008 Subs Hosp L2
--- NOTE | 2021-03-19 14:11 | EX.PCM.CONCC ---
Assessment & Plan Assessment/Plan (1) Perforation of sigmoid colon due to diverticulitis: (2) Longstanding persistent atrial fibrillation: (3) Occlusion and stenosis of bilateral carotid arteries: (4) Diabetes mellitus, type II: QUALIFIERS: Diabetes mellitus manager long term care insulin use: without manager long term care use Diabetes mellitus complication status: without complication Qualified Code(s): E11.9 - Type 2 diabetes mellitus without complications (5) Essential (primary) hypertension: PLAN: RECOMMENDATIONS: 1. Continue empiric antibiotics 2. Spontaneous breathing and awakening trial per protocol 3. Advance endotracheal tube 3 cm 4. No changes in ventilator settings indicated 5. Reinitiate diet and anticoagulation per surgery 6. As needed medications for hypertension IMPRESSIONS: 1. Sigmoid diverticulitis with perforation Extensive contamination of the abdomen suggested by operative procedure. Patient is on empiric antibiotics at this time. Cultures are currently pending. Blood pressures are holding at this point. Cannot exclude the need for pressors at some point. We will continue to monitor. Despite significant bacterial load, there does not appear to be any endorgan damage at this time. Patient may have significant decompensation given mobilization of purulent material. We will continue to monitor in the intensive care unit. 2. Acute hypoxic respiratory failure Clinical suspicion for an element of splinting secondary to abdominal situation. Patient reportedly has never been a smoker and has no history of asthma that we are aware of. Will allow patient to remain on the ventilator for now. Spontaneous breathing and awakening trials per protocol. Okay to initiate fentanyl drip to help with vent synchrony. ABG shows adequate oxygenation ventilation on current settings. 3. Peripheral vascular disease/persistent A. fib/hypertension/coronary artery disease/advanced age/obesity/mild Complicates care, management, recovery and prognosis. Aspirin, Plavix and anticoagulation are currently being held. Anticipate as needed medications for hypertension as necessary. Patient can have anticoagulation reinitiated per surgery. Low clinical suspicion for pulmonary edema from CHF at this time. We will have to watch neurologic status closely as patient does have significant carotid disease. TIME: 33 minutes critical care time spent addressing patient's sigmoid diverticulitis with perforation, acute respiratory failure, review of all data and collaboration with care team (11:30 AM to 2:30 PM) HPI Consult Data Date of Consult: 03/19/21 HPI Narrative HPI Narrative: VIDHYA YA is a 80 M, with past medical history listed below, who presented to [facility] on secondary to progressive abdominal pain over the previous 2 weeks. Patient had localized this to the lower quadrants and epigastric area. Patient reportedly had had abdominal pain, lightheadedness and chills for the past 1 to 2 weeks. This pain was described as achy and diffuse. Nothing seemed to make it better or worse. Patient had reported some nausea, but denied any vomiting. Patient has had diarrhea without melena or hematochezia. On arrival to the ER, patient was afebrile, normotensive and saturating well on room air. However, over the course of his ER stay, patient became more hypoxic requiring 2 L nasal cannula. Patient was persistently tachycardic throughout the ER course. Laboratory work-up was significant for a leukocytosis of 11.9, hemoglobin of 10.1 and a platelet count of 375. Magnesium was low at 0.9, but other electrolytes were unremarkable. UA was unremarkable, but an abdominal CT showed significant enteritis versus inflammatory bowel disease with a focal thickening of the wall the colon and the descending portion. Patient also had a fluid collection with air in the anterior pelvis and ascites. The patient was given IV fluids, morphine and Zofran, but given the findings on CT scan was admitted to the hospital for further evaluation. Since being admitted to the hospital, patient has had his INR reversed from over 4 to within normal limits. Patient also had a significant leukocytosis and given the findings on CT scan there was concern for perforated sigmoid diverticulosis with abscess. Patient agreed with intervention and was taken to surgery this morning. During surgery, patient reportedly had a Presley's procedure and required removal of over 1 L of reported purulent material. Full irrigation was performed, but given patient's hypoxia, anesthesia elected to keep patient intubated. The patient did require brief pressors per report. Unable to obtain a full review of systems as patient is currently intubated and sedated. [facility] Medical History (Updated 03/19/21 @ 14:[address] Alfie Haq DO) Diabetes mellitus, type II Diverticulitis Essential (primary) hypertension History of CVA (cerebrovascular accident) (10/21/13) History of prostate cancer Hyperlipidemia Longstanding persistent atrial fibrillation Nonobstructive atherosclerosis of coronary artery Obesity (BMI 30.0-34.9) Occlusion and stenosis of bilateral carotid arteries Patent foramen ovale Sepsis secondary to UTI Home Medications multivitamin with folic acid 1 tab PO DAILY 10/21/13 [History Last Taken Unknown] acetaminophen 325 mg tablet 650 mg PO DAILY tab 09/09/17 [History Last Taken Unknown] cyanocobalamin (vitamin B-12) 100 mcg tablet 100 mcg PO QDAY 09/09/17 [History Last Taken Unknown] metformin 1,000 mg tablet 1,000 mg PO BID 09/15/17 [History Last Taken 11/25/20] omega-3 fatty acids 1,000 mg capsule 500 mg PO DAILY 02/29/20 [History Last Taken Unknown] amlodipine 10 mg tablet 10 mg PO QDAY #90 tab 05/01/20 [Rx Last Taken 11/26/20] warfarin 1 mg tablet 1 mg PO .COMPLEX #90 tab 10/11/20 [Rx Last Taken 11/21/20] ferrous sulfate 324 mg (65 mg iron) tablet,delayed release 324 mg PO BID 11/13/20 [History Last Taken Unknown] atorvastatin See Rx Instructions .ROUTE .COMPLEX 03/07/21 [History Last Taken Unknown] lisinopril 20 mg PO DAILY 03/19/21 [History Last Taken Unknown] pantoprazole 40 mg PO DAILY 03/19/21 [History Last Taken Unknown] Allergy/AdvReac Type Severity Reaction Status Date / Time No Known Allergies Allergy Verified 03/07/21 19:11 Family History Sister Diabetes Heart disease Brother Colon cancer Father CVA (cerebral vascular accident) Surgical History History of cardioversion (01/11/10) History of knee replacement History of knee replacement procedure of left knee History of left heart catheterization (11/26/20) History of prostatectomy Social History household members: spouse housing: other history of recent travel: No Smoking Status: Never smoker alcohol intake: never caffeine: Yes Type: carbonated beverages and coffee ROS Review of Systems ROS Unobtainable: due to endotracheal tube Physical Exam Const Constitutional Narrative: Good ventilator synchrony General Appearance: intubated and patient mechanically ventilated; Negative for in distress HEENT normocephalic, head/scalp atraumatic and moist oral mucous membranes Eyes PERRL and EOMs intact bilaterally Neck full ROM and no lymphadenopathy Chest inspection of chest normal Resp normal respiratory effort and no use of accessory muscles Effort and Inspection: able to speak in complete sentences Auscultation: clear to auscultation bilaterally; Negative for rales, rhonchi or wheezes Percussion: Negative for dullness Cardio S1 normal heart sound, S2 normal heart sound, no murmurs, no rub and no gallops Cardio Narrative: A. fib noted on monitor Rate: tachycardic GI GI Narrative: Colostomy is clean, dry and intact. No areas of duskiness noted. Some grimacing with palpation of the lower abdomen. Slightly distended. no CVA tenderness Extremity General Extremity: edema; Negative for clubbing or cyanosis Skin Skin Narrative: Large incision noted. Some serosanguineous exudate noted. Neuro Neuro Narrative: Some spontaneous movement of the extremities noted. RASS -2. Psych Appearance: intubated Medical Records Data Medical Nutrition Assessment Dietitian: Nutrition Therapy Diagnosis Start: 03/18/21 09:59 Freq: Status: Active Protocol: Document 03/18/21 14:30 RMA (Rec: 03/18/21 14:31 RMA [id number]) Nutrition Malnutrition Evidence of Malnutrition Exists No Clinical Problem Altered GI Function Etiology related to inflammation/ diverticulitis Signs/Symptoms as evidenced by NPO status Status Active Problem Recommendation Dietitian Recommendations/Changes Continue NPO until medically able to advance diet. Suggest advance diet as tolerated to Transitional with goal diet of 1800 calorie; carbohydrate-controlled; cardiac. ONS as needed once able to take PO nutrition. Consider parenteral nutrition support as indicated if unable to advance diet in 24-72 hours. Lab / Micro Data Result Diagrams: 03/19/21 05:04 03/19/21 05:10 Labs: Laboratory Results - last 24 hr 03/18/21 15:52: PT 28.0 H, INR 2.7 03/18/21 17:44: POC Glucose 112 H 03/18/21 21:20: POC Glucose 94 03/19/21 05:04: WBC 20.2 H, RBC 3.86 L, Hgb 10.8 L, Hct 34.9 L, MCV 90.4, MCH 28.0, MCHC 30.9 L, RDW Std Deviation 49.2 H, RDW Coeff of Sean 14.8 H, Plt Count 324, MPV 10.2, Immature Gran % (Auto) 1.000 H, Neut % (Auto) 91.3 H, Lymph % (Auto) 5.2 L, [place] % (Auto) 2.2, Eos % (Auto) 0.1, Baso % (Auto) 0.2, Absolute Neuts (auto) 18.4 H, Absolute Lymphs (auto) 1.05, Nucleated RBC % 0 03/19/21 05:08: POC Glucose 108 03/19/21 05:10: PT 15.6 H, INR 1.3 03/19/21 05:10: Sodium 133 L, Potassium 4.8, Chloride 108 H, Carbon Dioxide 17.0 L, Anion Gap 8, BUN 24 H, Creatinine 0.93, Estim Creat Clear Calc 54.81, Est GFR (MDRD) Af Amer 101, Est GFR (MDRD) Non-Af 84, BUN/Creatinine Ratio 25.9 H, Glucose 101, Calcium 8.3 L, Total Bilirubin 0.50, AST 30, ALT 27, Alkaline Phosphatase 48, Total Protein 5.9 L, Albumin 1.7 L, Globulin 4.2, Albumin/Globulin Ratio 0.4 L 03/19/21 08:40: Blood Type A POSITIVE, Antibody Screen NEGATIVE, Crossmatch See Detail Micro: Microbiology 03/19/21 07:30 Stool Enteric Bacteriology - Final 03/19/21 07:30 Stool C. difficile DNA Amplification - Final ABG Data ABG results: ABG 03/19/21 13:07 Specimen Type ART Sample Site Art Line pH 7.32 L Bicarbonate Actual 18.0 L Total CO2 19 Base Excess -8 L O2 Saturation 92 L O2 % 40 ABG pCO2 35.2 ABG pO2 69 L Respiration Rate 14 O2 Delivery Device Adult Vent Vent Mode AC Tidal Volume 450 POC PEEP 5 Radiology Impression Carotid Duplex 03/18/21 07:01 Interpretation Summary Irregular calcific plaque right carotid bulb and proximal internal carotid artery Greater than 70% stenosis right internal carotid artery. The velocity increase in the right internal carotid artery may be compensatory secondary to left carotid occlusion. Less than 50% stenosis right external carotid artery Extensive plaque and no flow noted in the left internal carotid artery consistent with known left internal carotid artery occlusion Greater than 50% stenosis left external carotid artery Patent and antegrade bilateral vertebrals Ordering Physician: Willy Cervantes Referring Physician: Yoon Alba Performed By: Zora Nickerson RVT, RDCS and Student Chest X-Ray 03/19/21 11:39 IMPRESSION: Interstitial and airspace opacifications have become more conspicuous than on the previous study. Differential as described above ET tube tip is 5 cm above the samy in satisfactory position Electronically Signed: Tonio Vasquez MD at 13:06 EDT , Service support , Charges/Coding Procedures Hospitalists Procedures: [id number] Critial Care 1st Hr
[2021-03-19 15:24] LABS: CPK Total, Creatine Kinase 48 U/L (39-308); Triglycerides 94 mg/dL
[2021-03-19 16:16] LABS: Bedside Glucose 150 mg/dL (70-110)
[2021-03-19] MEDS: Chlorhexidine 15 ML PO ×2 (16:19→22:22)
[2021-03-19] MEDS: Atorvastatin Calcium 80 MG Tablet PO (22:21)
[2021-03-19 22:26] LABS: Bedside Glucose 141 mg/dL (70-110)
[2021-03-20] VITALS (32 sets, daily range): BP systolic 93–153; BP diastolic 50–97; PULSE 80–104; RESP 14–29; TEMP 36.5–37.3; O2SAT 90–97
[2021-03-20] MEDS: Propofol 10MG/Ml 1,000 MG/100 ML Bottle 5.8 MG CONT INF (00:36)
[2021-03-20] MEDS: 0.9% Normal Saline 1,000 ML 125 ML IV ×3 (03:13→18:16)
[2021-03-20 04:39] LABS: Absolute Lymphocyte Count 0.86 X10^3/uL (0.83-4.51); Absolute Neutrophil Count 16.1 X10^3/uL (2.0-7.7); Basophil# 0.04 X10^3/uL; Basophil% 0.2 % (0-1); Eosinophil# 0.05 X10^3/uL; Eosinophils% 0.3 % (0-5); Hematocrit 30.6 % (40-54); Hemoglobin 9.2 g/dL (13.0-16.5); Lymphocyte # 0.86 X10^3/ul (0.83-4.51); Lymphocyte % 4.8 % (19-41); Mean Corp Hgb Conc 30.1 g/dL (32-36); Mean Corpuscular Hgb 27.6 pg (27.0-32.0); Mean Corpuscular Volume 91.9 fL (80-94); Mean Platelet Vol. 9.9 fl (6.2-12.0); Monocyte# 0.62 X10^3/uL; Monocyte% 3.5 % (0-10); NRBC Flagged by Analyzer 0 % (0-5); Neutrophil # 16.12 X10^3/uL (2.7-7.7); Neutrophil % 90.1 % (47-70); Platelet Count 340 K/mm3 (150-450); RBC Distribution Width CV 15.2 % (11.6-14.6); Red Blood Count 3.33 M/mm3 (4.6-6.2); White Blood Count 17.9 K/mm3 (4.4-11.0)
[2021-03-20 04:52] LABS: Anion Gap 6 (5-15); BUN 29 mg/dL (7-18); BUN/Creat Ratio 20.6 RATIO (10-20); Calcium,Total 7.8 mg/dL (8.5-10.1); Chloride 110 mmol/L (98-107); Creatinine, Serum 1.41 mg/dL (0.70-1.30); EST Glomerular Filtration Rate 52 mL/min (>60); Est Glom Filt Rate - Afr Amer 62 mL/min (>60); Estimated Creatinine Clearance 36.15 ml/min; Glucose 130 mg/dL (74-106); Magnesium 1.9 mg/dL (1.6-2.6); Phosphorus 4.2 mg/dL (2.5-4.9); Potassium 5.1 mmol/L (3.5-5.1); Sodium Level 138 mmol/L (136-145)
[2021-03-20 05:21] LABS: Bedside Glucose 116 mg/dL (70-110)
[2021-03-20 05:55] LABS: Base Excess -8 mmol/L (-2 to +2); Bicarbonate 17.5 mmol/L (22-26); Blood Gas Specimen Type ART; FI02 35; Mode CPAP/PS; O2 Delivery Device Adult Vent; PEEP 5; PO2 72 mmHG (75-100); PS 5; SITE L Brach; SO2 94 % (95-99); Total Carbon Dioxide 18 mmol/L; pCO2 30.7 mmHg (35-45); pH 7.36 (7.35-7.45)
--- NOTE | 2021-03-20 06:40 | NURSING ---
Patient extubated per RT, this RN at bedside. Upon extubation patient is aphasic, patient follows commands but has difficulty speaking. Dr Corona on unit and goes to bedside.
--- NOTE | 2021-03-20 06:42 | NURSING ---
Dr Corona at bedside, new orders received, Dr Corona states no need for stroke team as patient does not have a last known well time and is not a candidate for TPA. Will take patient to CT.
--- NOTE | 2021-03-20 06:49 | CT_ITS ---
HISTORY: Aphasia TECHNIQUE: Multiple axial images were obtained of the brain without intravenous contrast. Coronal and sagittal reformats obtained. Bone algorithm axial images obtained. A radiation dose optimization technique was used for this scan. COMPARISON: MRI brain 10/11/2015. CT head October 21, 2013 FINDINGS: # of images incl. paperwork: [phone] TUBES: Partially seen enteric tube. HEMORRHAGE: No evidence of acute intracranial hemorrhage. CEREBRAL PARENCHYMA: Left superior and inferior frontal parietal temporal, peripheral patchy galaviz-white matter differentiation loss, with preservation of the basal ganglia. Mild localized effacement of sulci. No midline shift. Underlying chronic appearing encephalomalacia in the left mid frontal lobe correlates with gliosis on prior MRI. Mild periventricular hypodense chronic small vessel white matter ischemic change. VENTRICULAR SYSTEM: No hydrocephalus. SCALP: No large scalp hematoma. CALVARIUM/SKULL BASE: No fracture. PARANASAL SINUSES: Mild left ethmoid sinus mucoperiosteal thickening. MASTOID AIR CELLS: Clear. ORBIT IMAGED PORTIONS: Unremarkable for age. VESSELS: Carotid and vertebral atherosclerosis. ASPECTS acute stroke score: 4 CT/Brain/Head without Contrast IMPRESSION: Findings concerning for a large left MCA territory ischemic stroke. MRI could further characterize as clinically indicated. No evidence of intracranial hemorrhage. Senescent changes and atherosclerosis. Individualized dose optimization techniques were used for this CT. at 0902 Reported and signed by: Isidro Jovel MD N.B. : The above Results were Read Back by Isidro Jovel MD to Chan Corona MD, and understanding confirmed on 03/20/2021 08:59:36 (ET). Electronically Signed: Isidro Jovel MD at 9:01 EDT Tel , Service support ,
--- NOTE | 2021-03-20 07:24 | PCM.PN.INT ---
Assessment & Plan Assessment/Plan (1) Perforation of sigmoid colon due to diverticulitis: (2) Longstanding persistent atrial fibrillation: (3) Occlusion and stenosis of bilateral carotid arteries: (4) Diabetes mellitus, type II: QUALIFIERS: Diabetes mellitus computer terminal operator insulin use: without computer terminal operator use Diabetes mellitus complication status: without complication Qualified Code(s): E11.9 - Type 2 diabetes mellitus without complications (5) Essential (primary) hypertension: PLAN: RECOMMENDATIONS: 1. Continue empiric antibiotics 2. Await results of CT head 3. Potentially start a heparin drip without bolus 4. Allow for permissive hypertension 5. Therapies to evaluate 6. No stroke team as patient is not a TPA candidate given extensive abdominal surgery less than 24 hours ago and unclear last known well IMPRESSIONS: 1. Sigmoid diverticulitis with perforation Extensive contamination of the abdomen suggested by operative procedure. Patient is on empiric antibiotics at this time. Cultures are currently pending. Blood pressures are holding at this point. We will continue to monitor. Patient does have a significant elevation in creatinine today. Patient may have significant decompensation given mobilization of purulent material. We will continue to monitor in the intensive care unit. 2. Acute hypoxic respiratory failure Clinical suspicion for an element of splinting secondary to abdominal situation. Patient reportedly has never been a smoker and has no history of asthma that we are aware of. Wean supplemental oxygen as tolerated. 3. Peripheral vascular disease/persistent A. fib/hypertension/coronary artery disease/advanced age/obesity/mild Complicates care, management, recovery and prognosis. Aspirin, Plavix and anticoagulation are currently being held. Anticipate as needed medications for hypertension as necessary. Patient can have anticoagulation reinitiated per surgery. Low clinical suspicion for pulmonary edema from CHF at this time. 4. Possible CVA Stat CT of the head has been ordered. Patient appears to have right-sided weakness and aphasia. If no bleed, potentially could add a heparin drip given patient's A. fib. Patient also with extensive peripheral vascular and cerebrovascular disease. TIME: 40 minutes critical care time spent addressing patient's sigmoid diverticulitis with perforation, acute respiratory failure, review of all data and collaboration with care team (6:30 AM to 7:30 AM) Subjective Subjective Patient did well overnight. No hemodynamic instability was noted. Patient did have a spontaneous breathing trial this morning and passed without issue. Patient was successfully extubated this morning, but following extubation was noted to be aphasic. Patient did have a slight drift of the right upper extremity and would not lift his right lower extremity. Patient was sent for a stat CT scan that is currently pending. Objective Data Objective Data Vital Signs: Vital Signs Temp Pulse Resp BP Pulse Ox 37.1 C 93 26 H 115/69 94 03/20/21 06:00 03/20/21 06:00 03/20/21 06:00 03/20/21 06:00 03/20/21 06:00 Oxygen Flow Rate (L/min) 2 Oxygen Delivery Method Mechanical Ventilator Weight: 102.058 kg Body Mass Index (BMI) 36.6 Intake & Output: Intake and Output for Last 24 Hours 03/18/21 03/19/21 03/20/21 23:59 23:59 23:59 Intake Total 3638.92 / 3638.92 2706.38 / 2727.18 1129.17 / 1129.17 Output Total 375 / 465 495 / 495 Balance 3638.92 / 3638.92 2331.38 / 2262.18 634.17 / 634.17 Medical Nutrition Assessment Dietitian: Nutrition Therapy Diagnosis Start: 03/18/21 09:59 Freq: Status: Active Protocol: Document 03/18/21 14:30 RMA (Rec: 03/18/21 14:31 RMA [id number]) Nutrition Malnutrition Evidence of Malnutrition Exists No Clinical Problem Altered GI Function Etiology related to inflammation/ diverticulitis Signs/Symptoms as evidenced by NPO status Status Active Problem Recommendation Dietitian Recommendations/Changes Continue NPO until medically able to advance diet. Suggest advance diet as tolerated to Transitional with goal diet of 1800 calorie; carbohydrate-controlled; cardiac. ONS as needed once able to take PO nutrition. Consider parenteral nutrition support as indicated if unable to advance diet in 24-72 hours. Lab / Micro Data Result Diagrams: 03/20/21 04:00 03/20/21 04:00 Labs: Laboratory Results - last 24 hr 03/19/21 08:40: Blood Type A POSITIVE, Antibody Screen NEGATIVE, Crossmatch See Detail 03/19/21 14:55: Total Creatine Kinase 48, Triglycerides 94 03/19/21 16:11: POC Glucose 150 H 03/19/21 22:19: POC Glucose 141 H 03/20/21 04:00: WBC 17.9 H, RBC 3.33 L, Hgb 9.2 L, Hct 30.6 L, MCV 91.9, MCH 27.6, MCHC 30.1 L, RDW Std Deviation 52.0 H, RDW Coeff of Sean 15.2 H, Plt Count 340, MPV 9.9, Immature Gran % (Auto) 1.100 H, Neut % (Auto) 90.1 H, Lymph % (Auto) 4.8 L, [place] % (Auto) 3.5, Eos % (Auto) 0.3, Baso % (Auto) 0.2, Absolute Neuts (auto) 16.1 H, Absolute Lymphs (auto) 0.86, Nucleated RBC % 0 03/20/21 04:00: Sodium 138, Potassium 5.1, Chloride 110 H, Carbon Dioxide 22.0, Anion Gap 6, BUN 29 H, Creatinine 1.41 H, Estim Creat Clear Calc 36.15, Est GFR (MDRD) Af Amer 62, Est GFR (MDRD) Non-Af 52 L, BUN/Creatinine Ratio 20.6 H, Glucose 130 H, Calcium 7.8 L, Phosphorus 4.2, Magnesium 1.9 03/20/21 05:13: POC Glucose 116 H Micro: Microbiology 03/19/21 10:50 Wound Drainage - Other Gram Stain - Final 03/19/21 07:30 Stool Enteric Bacteriology - Final 03/19/21 07:30 Stool C. difficile DNA Amplification - Final 03/18/21 02:34 Mucosa - Nasopharyngeal SARS-CoV-2 Antigen (Rapid) - Final ABG Data ABG results: ABG 03/19/21 03/20/21 13:07 05:47 Specimen Type ART ART Sample Site Art Line L Brach pH 7.32 L 7.36 Bicarbonate Actual 18.0 L 17.5 L Total CO2 19 18 Base Excess -8 L -8 L O2 Saturation 92 L 94 L O2 % 40 35 ABG pCO2 35.2 30.7 L ABG pO2 69 L 72 L Alexander Test N/A Respiration Rate 14 O2 Delivery Device Adult Vent Adult Vent Vent Mode AC CPAP/PS Tidal Volume 450 POC PEEP 5 5 POC Pressure Suppt 5 Radiography Diagnostic Testing: Radiology Impression Chest X-Ray 03/19/21 11:39 IMPRESSION: Interstitial and airspace opacifications have become more conspicuous than on the previous study. Differential as described above ET tube tip is 5 cm above the samy in satisfactory position Electronically Signed: Tonio Vasquez MD at 13:06 EDT , Service support , Physical Exam Const Constitutional Narrative: Good ventilator synchrony prior to extubation General Appearance: intubated and patient mechanically ventilated; Negative for in distress HEENT normocephalic, head/scalp atraumatic and moist oral mucous membranes Eyes PERRL and EOMs intact bilaterally Neck full ROM and no lymphadenopathy Chest inspection of chest normal Resp normal respiratory effort and no use of accessory muscles Effort and Inspection: able to speak in complete sentences Auscultation: clear to auscultation bilaterally; Negative for rales, rhonchi or wheezes Percussion: Negative for dullness Cardio S1 normal heart sound, S2 normal heart sound, no murmurs, no rub and no gallops Cardio Narrative: A. fib noted on monitor Rate: tachycardic GI GI Narrative: Colostomy is clean, dry and intact. No areas of duskiness noted. Some grimacing with palpation of the lower abdomen. Slightly distended. no CVA tenderness Extremity General Extremity: edema; Negative for clubbing or cyanosis Skin Skin Narrative: Large incision noted. Some serosanguineous exudate noted. Neuro Neuro Narrative: No movement of right lower extremity. Right upper extremity with slight drift. Significant aphasia noted. Patient just blinking when given commands and is not vocalizing. This is not associated with respiratory distress. Psych Appearance: intubated Charges/Coding Procedures Hospitalists Procedures: [id number] Critial Care 1st Hr
--- NOTE | 2021-03-20 09:08 | PCM.PN.SRG ---
Subjective Subjective Patient was extubated this morning and seemed to have neurological changes. He went for CT scan this morning. Objective Data Objective Data Vital Signs: Vital Signs Temp Pulse Resp BP Pulse Ox 98.8 F 96 27 H 111/50 L 94 03/20/21 06:00 03/20/21 08:00 03/20/21 08:00 03/20/21 08:00 03/20/21 08:00 Oxygen Flow Rate (L/min) 4 Oxygen Delivery Method Nasal Cannula Weight: 225 lb Body Mass Index (BMI) 36.6 Intake & Output: Intake and Output for Last 24 Hours 03/18/21 03/19/21 03/20/21 23:59 23:59 23:59 Intake Total 3638.92 / 3638.92 2706.38 / 2727.18 1129.17 / 1129.17 Output Total 375 / 465 495 / 495 Balance 3638.92 / 3638.92 2331.38 / 2262.18 634.17 / 634.17 Medical Nutrition Assessment Dietitian: Nutrition Therapy Diagnosis Start: 03/18/21 09:59 Freq: Status: Active Protocol: Document 03/18/21 14:30 RMA (Rec: 03/18/21 14:31 RMA [id number]) Nutrition Malnutrition Evidence of Malnutrition Exists No Clinical Problem Altered GI Function Etiology related to inflammation/ diverticulitis Signs/Symptoms as evidenced by NPO status Status Active Problem Recommendation Dietitian Recommendations/Changes Continue NPO until medically able to advance diet. Suggest advance diet as tolerated to Transitional with goal diet of 1800 calorie; carbohydrate-controlled; cardiac. ONS as needed once able to take PO nutrition. Consider parenteral nutrition support as indicated if unable to advance diet in 24-72 hours. Lab / Micro Data Result Diagrams: 03/20/21 04:00 03/20/21 04:00 Labs: Laboratory Results - last 24 hr 03/19/21 08:40: Blood Type A POSITIVE, Antibody Screen NEGATIVE, Crossmatch See Detail 03/19/21 14:55: Total Creatine Kinase 48, Triglycerides 94 03/19/21 16:11: POC Glucose 150 H 03/19/21 22:19: POC Glucose 141 H 03/20/21 04:00: WBC 17.9 H, RBC 3.33 L, Hgb 9.2 L, Hct 30.6 L, MCV 91.9, MCH 27.6, MCHC 30.1 L, RDW Std Deviation 52.0 H, RDW Coeff of Sean 15.2 H, Plt Count 340, MPV 9.9, Immature Gran % (Auto) 1.100 H, Neut % (Auto) 90.1 H, Lymph % (Auto) 4.8 L, [place] % (Auto) 3.5, Eos % (Auto) 0.3, Baso % (Auto) 0.2, Absolute Neuts (auto) 16.1 H, Absolute Lymphs (auto) 0.86, Nucleated RBC % 0 03/20/21 04:00: Sodium 138, Potassium 5.1, Chloride 110 H, Carbon Dioxide 22.0, Anion Gap 6, BUN 29 H, Creatinine 1.41 H, Estim Creat Clear Calc 36.15, Est GFR (MDRD) Af Amer 62, Est GFR (MDRD) Non-Af 52 L, BUN/Creatinine Ratio 20.6 H, Glucose 130 H, Calcium 7.8 L, Phosphorus 4.2, Magnesium 1.9 03/20/21 05:13: POC Glucose 116 H Micro: Microbiology 03/19/21 10:50 Wound Drainage - Other Gram Stain - Final 03/19/21 07:30 Stool Enteric Bacteriology - Final 03/19/21 07:30 Stool C. difficile DNA Amplification - Final 03/18/21 02:34 Mucosa - Nasopharyngeal SARS-CoV-2 Antigen (Rapid) - Final ABG Data ABG results: ABG 03/19/21 03/20/21 13:07 05:47 Specimen Type ART ART Sample Site Art Line L Brach pH 7.32 L 7.36 Bicarbonate Actual 18.0 L 17.5 L Total CO2 19 18 Base Excess -8 L -8 L O2 Saturation 92 L 94 L O2 % 40 35 ABG pCO2 35.2 30.7 L ABG pO2 69 L 72 L Alexander Test N/A Respiration Rate 14 O2 Delivery Device Adult Vent Adult Vent Vent Mode AC CPAP/PS Tidal Volume 450 POC PEEP 5 5 POC Pressure Suppt 5 Radiography Diagnostic Testing: Radiology Impression Chest X-Ray 03/19/21 11:39 IMPRESSION: Interstitial and airspace opacifications have become more conspicuous than on the previous study. Differential as described above ET tube tip is 5 cm above the samy in satisfactory position Electronically Signed: Tonio Vasquez MD at 13:06 EDT , Service support , Brain CT 03/20/21 06:49 IMPRESSION: Findings concerning for a large left MCA territory ischemic stroke. MRI could further characterize as clinically indicated. No evidence of intracranial hemorrhage. Senescent changes and atherosclerosis. Individualized dose optimization techniques were used for this CT. at 0902 Reported and signed by: Isidro Jovel MD N.B. : The above Results were Read Back by Isidro Jovel MD to Chan Corona MD, and understanding confirmed on 03/20/2021 08:59:36 (ET). Electronically Signed: Isidro Jovel MD at 9:01 EDT Tel , Service support , Physical Exam Resp normal respiratory effort Cardio regular rate and regular rhythm GI soft to palpation and non-tender Extremity Extremity Narrative: Weakness of the right side Assessment & Plan Assessment/Plan (1) Perforation of sigmoid colon due to diverticulitis: PLAN: The patient is doing as expected from a surgical standpoint. His white count is decreasing and he has not needed any pressor support. The stoma is pink and viable and TIM is serosanguineous. Continue antibiotics and n.p.o. with IV fluids and NG suctioning. Patient may have had a CVA. He was sent for CT this morning after extubation when he was aphasic and having weakness on the right side. Okay from my standpoint to start a heparin drip if necessary without a bolus. Willy Cervantes MD Pager: [facility] [address] [place] [address], [address] [place] [phone] Office:
--- NOTE | 2021-03-20 09:39 | NURSING ---
wound/stoma photo: abdomen
[2021-03-20] MEDS: HEPARIN/D5w 25,000 UNITS 25,000 UNITS/250 ML IV.SOLN. 14 UNITS IV (10:55)
--- NOTE | 2021-03-20 11:55 | PCM.PN.HOSP ---
Subjective Subjective noted right sided weakness, aphasia when extubated this AM. Unknown time when last was normal. Objective Data Objective Data Vital Signs: Vital Signs Temp Pulse Resp BP Pulse Ox 37.1 C 95 28 H 114/77 95 03/20/21 06:00 03/20/21 09:00 03/20/21 09:00 03/20/21 09:00 03/20/21 09:00 Oxygen Flow Rate (L/min) 3 Oxygen Delivery Method Nasal Cannula Weight: 102.058 kg Body Mass Index (BMI) 36.6 Intake & Output: Intake and Output for Last 24 Hours 03/18/21 03/19/21 03/20/21 23:59 23:59 23:59 Intake Total 3638.92 / 3638.92 2706.38 / 2727.18 2145.84 / 2145.84 Output Total 375 / 465 555 / 555 Balance 3638.92 / 3638.92 2331.38 / 2262.18 1590.84 / 1590.84 Medical Nutrition Assessment Dietitian: Nutrition Therapy Diagnosis Start: 03/18/21 09:59 Freq: Status: Active Protocol: Document 03/20/21 11:12 AG (Rec: 03/20/21 11:12 AG [id number]) Nutrition Malnutrition Evidence of Malnutrition Exists No Intake Problem Inadequate Oral Intake Etiology r/t GI dysfunction Signs/Symptoms as evidenced by no PO intake x 3 days Status Active Problem Clinical Problem Altered GI Function Etiology related to inflammation/ diverticulitis Signs/Symptoms as evidenced by need for sigmoid colectomy w/ end colostomy Status Active Problem Recommendation Dietitian Recommendations/Changes Advance diet as tolerated to transitional. If pt anticipated to remain NPO > 5 days w/ no plans to resume PO diet for >1 week, strongly recommend consideration of EN or TPN. Pt will need HOME APPLIANCE TECH evaluation prior to PO diet advancement. Lab / Micro Data Result Diagrams: 03/20/21 04:00 03/20/21 04:00 Labs: Laboratory Results - last 24 hr 03/19/21 14:55: Total Creatine Kinase 48, Triglycerides 94 03/19/21 16:11: POC Glucose 150 H 03/19/21 22:19: POC Glucose 141 H 03/20/21 04:00: WBC 17.9 H, RBC 3.33 L, Hgb 9.2 L, Hct 30.6 L, MCV 91.9, MCH 27.6, MCHC 30.1 L, RDW Std Deviation 52.0 H, RDW Coeff of Sean 15.2 H, Plt Count 340, MPV 9.9, Immature Gran % (Auto) 1.100 H, Neut % (Auto) 90.1 H, Lymph % (Auto) 4.8 L, [place] % (Auto) 3.5, Eos % (Auto) 0.3, Baso % (Auto) 0.2, Absolute Neuts (auto) 16.1 H, Absolute Lymphs (auto) 0.86, Nucleated RBC % 0 03/20/21 04:00: Sodium 138, Potassium 5.1, Chloride 110 H, Carbon Dioxide 22.0, Anion Gap 6, BUN 29 H, Creatinine 1.41 H, Estim Creat Clear Calc 36.15, Est GFR (MDRD) Af Amer 62, Est GFR (MDRD) Non-Af 52 L, BUN/Creatinine Ratio 20.6 H, Glucose 130 H, Calcium 7.8 L, Phosphorus 4.2, Magnesium 1.9 03/20/21 05:13: POC Glucose 116 H 03/20/21 10:40: PT Cancelled, INR Cancelled, APTT Cancelled 03/20/21 11:00: PT Cancelled, INR Cancelled, APTT Cancelled 03/20/21 11:30: PT Cancelled, INR Cancelled, APTT Cancelled Micro: Microbiology 03/19/21 10:50 Wound Drainage - Other Gram Stain - Final 03/19/21 10:50 Wound Drainage - Other Wound Culture - Preliminary Gram positive organism 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 difficile DNA Amplification - Final 03/18/21 02:34 Mucosa - Nasopharyngeal SARS-CoV-2 Antigen (Rapid) - Final ABG Data ABG results: ABG 03/19/21 03/20/21 13:07 05:47 Specimen Type ART ART Sample Site Art Line L Brach pH 7.32 L 7.36 Bicarbonate Actual 18.0 L 17.5 L Total CO2 19 18 Base Excess -8 L -8 L O2 Saturation 92 L 94 L O2 % 40 35 ABG pCO2 35.2 30.7 L ABG pO2 69 L 72 L Alexander Test N/A Respiration Rate 14 O2 Delivery Device Adult Vent Adult Vent Vent Mode AC CPAP/PS Tidal Volume 450 POC PEEP 5 5 POC Pressure Suppt 5 Radiography Diagnostic Testing: Radiology Impression Chest X-Ray 03/19/21 11:39 IMPRESSION: Interstitial and airspace opacifications have become more conspicuous than on the previous study. Differential as described above ET tube tip is 5 cm above the samy in satisfactory position Electronically Signed: Tonio Vasquez MD at 13:06 EDT , Service support , Brain CT 03/20/21 06:49 IMPRESSION: Findings concerning for a large left MCA territory ischemic stroke. MRI could further characterize as clinically indicated. No evidence of intracranial hemorrhage. Senescent changes and atherosclerosis. Individualized dose optimization techniques were used for this CT. at 0902 Reported and signed by: Isidro Jovel MD N.B. : The above Results were Read Back by Isidro Jovel MD to Chan Corona MD, and understanding confirmed on 03/20/2021 08:59:36 (ET). Electronically Signed: Isidro Jovel MD at 9:01 EDT Tel , Service support , ADDENDUM: 03/20/21 0909 IMPRESSION: Findings concerning for a large left MCA territory ischemic stroke. MRI could further characterize as clinically indicated. No evidence of intracranial hemorrhage. Senescent changes and atherosclerosis. Individualized dose optimization techniques were used for this CT. at 0902 Reported and signed by: Isidro Jovel MD N.B. : The above Results were Read Back by Isidro Jovel MD to Chan Corona MD, and understanding confirmed on 03/20/2021 08:59:36 (ET). Electronically Signed: Isidro Jovel MD at 9:01 EDT Tel , Service support , Physical Exam Const Constitutional Narrative: awake. garbled speech. afebrile. HEENT Head and Scalp: normocephalic Eyes Eyes Narrative: no icterus Resp normal respiratory effort and clear to auscultation bilaterally Cardio regular rate, regular rhythm, S1 normal heart sound and S2 normal heart sound GI normal to inspection, nondistended, normoactive bowel sounds, non-tender and non-distended Extremity normal to inspection Neuro Neuro Narrative: right sided neglect. MS 3/5 in RUE. MS 5/5 in LUE Assessment & Plan Assessment/Plan (1) Abdominal abscess: (2) Colitis: (3) Enteritis: (4) Carotid stenosis: QUALIFIERS: Laterality: right Qualified Code(s): I65.21 - Occlusion and stenosis of right carotid artery PLAN: 1. 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 Copious purulent material throughout. Cx GPO + GNR plan: continue pip/tazo, NPO, additional mgmt per surgery 2. respiratory failure maintained on ventilator after extensive surgery maintaining good pusle ox on 40% fiO2 CCM on consult extubated 03/20 3. Acute LMCA CVA aphasia, right-sided neglect, started on heparin gtt for anticoagulation unknown last time normal not candidate for TPA given recent surgery will need MRI brain and echo followed by neurology consult when status allows. 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 therapy eval will need SNF/rehab upon discharge 3. carotid stenosis greater than 70% stenosis on right. Chronic left carotid occlusion. Similiar to 04/09/[address] Bhatia in past and not deemed a candidate in past for CEA 5. coagulopathy resolved with 2 doses of 5mg of vitamin K 6. afib warfarin held heparin gtt started 03/20 7. Hypertensive urgency stable amlodipine held 8. VTE prophylaxis: SCDs 9. CAD LHC in 11/2020 showing non-obstructive CAD ASA, clopidogrel currently held. Resume when ok with general surgery 10. mild noted on 2d echo from 11/21/2020 outpt follow up with cardiology Charges/Coding Visit Charges Inpatient E&M: 39358 Subs Hosp L3
--- NOTE | 2021-03-20 11:56 | CASEMGMT ---
Social Work Attempted to see patient to complete PHQ-9, currently unable to complete assessment with patient due to current cognitive functioning. Will continue to follow. Angela FERNANDO, LULA
[2021-03-20 12:38] LABS: International Normalized Ratio 1.8; Prothrombin Time (Protime)PT. 20.2 SECONDS (11.7-14.9)
[2021-03-20 12:39] LABS: Partial Thromboplast Time 47.9 Seconds (24.1-36.2)
[2021-03-20] MEDS: 0.9% Saline Lock 10 ML Syringe IV ×2 (13:12→18:17)
[2021-03-20] MEDS: Insulin Lispro 100 UNIT/ML INSULN.PEN SC (13:12)
[2021-03-20 13:21] LABS: Bedside Glucose 156 mg/dL (70-110)
--- NOTE | 2021-03-20 15:32 | RAD_ITS ---
STUDY: X-RAY CHEST REASON FOR EXAM: Male, 80 years old. PICC placement TECHNIQUE: Single AP portable view of the chest. COMPARISON: Yesterday FINDINGS: Since yesterday''s study, patient has been extubated. NG tube tip remains in the body the stomach. EKG leads overlie the chest Right sided PICC line has been placed, tip is in the distal SVC. The lungs are clear and expanded. There is no demonstrated pleural abnormality. Normal size heart. Normal mediastinum and lourdes. Normal visualized pulmonary arteries. There is atherosclerotic calcification of the aortic arch with tortuosity. There are diffuse degenerative changes of the visualized thoracic spine. There is degenerative osteoarthritis of the bilateral shoulders. There is no demonstrated abnormality of the visualized soft tissue structures of the upper abdomen. RAD/CXR for Line Placement IMPRESSION: Right-sided PICC line is in place, tip is in the distal SVC No acute pulmonary process Patient has been extubated, other support lines and tubes remain in their described positions Electronically Signed: Tonio Vasquez MD at 16:03 EDT , Service support ,
[2021-03-20] MEDS: Morphine 2 MG/ML Syringe IV (18:15)
[2021-03-20 18:16] LABS: Bedside Glucose 147 mg/dL (70-110)
--- NOTE | 2021-03-20 18:37 | NURSING ---
Pt's Heydi gives permission for pt's sister Brandy Grayson and brother Rayray Palmer to have information about pt at this time as they are out of state.
[2021-03-20 18:59] LABS: Partial Thromboplast Time 61.4 Seconds (24.1-36.2)
[2021-03-21] VITALS (25 sets, daily range): BP systolic 133–190; BP diastolic 62–89; PULSE 84–112; RESP 21–40; TEMP 36.8–37.3; O2SAT 91–97
[2021-03-21 00:51] LABS: Bedside Glucose 139 mg/dL (70-110)
[2021-03-21 01:10] LABS: Partial Thromboplast Time 87.9 Seconds (24.1-36.2)
[2021-03-21] MEDS: 0.9% Normal Saline 1,000 ML 125 ML IV ×3 (02:23→20:20)
[2021-03-21] MEDS: HEPARIN/D5w 25,000 UNITS 25,000 UNITS/250 ML IV.SOLN. 13 UNITS IV (04:16)
[2021-03-21 04:34] LABS: Absolute Lymphocyte Count 1.19 X10^3/uL (0.83-4.51); Absolute Neutrophil Count 15.4 X10^3/uL (2.0-7.7); Basophil# 0.03 X10^3/uL; Basophil% 0.2 % (0-1); Eosinophil# 0.05 X10^3/uL; Eosinophils% 0.3 % (0-5); Hematocrit 27.3 % (40-54); Hemoglobin 8.2 g/dL (13.0-16.5); Lymphocyte # 1.19 X10^3/ul (0.83-4.51); Lymphocyte % 6.7 % (19-41); Mean Corpuscular Hgb 27.8 pg (27.0-32.0); Mean Corpuscular Volume 92.5 fL (80-94); Mean Platelet Vol. 9.4 fl (6.2-12.0); Monocyte# 0.82 X10^3/uL; Monocyte% 4.6 % (0-10); NRBC Flagged by Analyzer 0 % (0-5); Neutrophil # 15.41 X10^3/uL (2.7-7.7); Neutrophil % 87.4 % (47-70); Platelet Count 318 K/mm3 (150-450); RBC Distribution Width CV 15.3 % (11.6-14.6); RBC Distribution Width SD 51.9 fl (35.1-43.9); Red Blood Count 2.95 M/mm3 (4.6-6.2); White Blood Count 17.6 K/mm3 (4.4-11.0)
[2021-03-21 04:48] LABS: Anion Gap 7 (5-15); BUN 23 mg/dL (7-18); BUN/Creat Ratio 24.4 RATIO (10-20); Calcium,Total 8.3 mg/dL (8.5-10.1); Chloride 113 mmol/L (98-107); Creatinine, Serum 0.94 mg/dL (0.70-1.30); EST Glomerular Filtration Rate 82 mL/min (>60); Est Glom Filt Rate - Afr Amer 100 mL/min (>60); Estimated Creatinine Clearance 54.23 ml/min; Glucose 148 mg/dL (74-106); Potassium 4.4 mmol/L (3.5-5.1); Sodium Level 142 mmol/L (136-145)
[2021-03-21 06:41] LABS: Bedside Glucose 143 mg/dL (70-110)
--- NOTE | 2021-03-21 06:44 | PCM.PN.INT ---
Assessment & Plan Assessment/Plan (1) Perforation of sigmoid colon due to diverticulitis: (2) Longstanding persistent atrial fibrillation: (3) Occlusion and stenosis of bilateral carotid arteries: (4) Diabetes mellitus, type II: QUALIFIERS: Diabetes mellitus intermediate card tender insulin use: without intermediate card tender use Diabetes mellitus complication status: without complication Qualified Code(s): E11.9 - Type 2 diabetes mellitus without complications (5) Essential (primary) hypertension: PLAN: RECOMMENDATIONS: 1. Continue empiric antibiotics 2. Consider SOC consult 3. Continue heparin drip 4. Allow for permissive hypertension 5. Therapies to evaluate 6. Okay to leave the intensive care unit from my perspective IMPRESSIONS: 1. Sigmoid diverticulitis with perforation Extensive contamination of the abdomen suggested by operative procedure. Patient is on empiric antibiotics at this time. Cultures are currently pending. Blood pressures are holding. Antihypertensives were held secondary to attempts at permissive hypertension. We will continue to monitor. Creatinine has improved. Patient may have significant decompensation given mobilization of purulent material. Okay to leave the intensive care unit from my perspective 2. Acute hypoxic respiratory failure Clinical suspicion for an element of splinting secondary to abdominal situation. Patient reportedly has never been a smoker and has no history of asthma that we are aware of. Wean supplemental oxygen as tolerated. 3. Peripheral vascular disease/persistent A. fib/hypertension/coronary artery disease/advanced age/obesity/mild Complicates care, management, recovery and prognosis. Aspirin, Plavix and anticoagulation are currently being held. Anticipate as needed medications for hypertension as necessary. Patient can have anticoagulation reinitiated per surgery. Low clinical suspicion for pulmonary edema from CHF at this time. 4. Left MCA CVA Consider initiation of stroke protocol including neurology consult and therapies. Patient is hemodynamically stable enough to proceed. Subjective Subjective Patient did okay from a hemodynamic standpoint overnight. Patient has been on a heparin drip, but no reports of bleeding have been reported. Patient continues to have a productive cough and is slightly tachypneic, but otherwise tolerating 2 L nasal cannula. Nursing has put the patient's NIH at 7 and there are some concerns for possible right-sided neglect. Patient was able to recognize me on the right side and was spontaneously moving his right foot on my evaluation. Objective Data Objective Data Vital Signs: Vital Signs Temp Pulse Resp BP Pulse Ox 37.1 C 93 27 H 152/63 H 95 03/21/21 04:00 03/21/21 04:00 03/21/21 04:00 03/21/21 04:00 03/21/21 04:00 Oxygen Flow Rate (L/min) 2 Oxygen Delivery Method Nasal Cannula Weight: 102.1 kg Body Mass Index (BMI) 36.6 Intake & Output: Intake and Output for Last 24 Hours 03/19/21 03/20/21 03/21/21 23:59 23:59 23:59 Intake Total 2706.38 / 2727.18 3444.52 / 3444.52 1175.85 / 1175.85 Output Total 375 / 465 1779 / 1979 200 / 200 Balance 2331.38 / 2262.18 1664.52 / 1464.52 975.85 / 975.85 Medical Nutrition Assessment Dietitian: Nutrition Therapy Diagnosis Start: 03/18/21 09:59 Freq: Status: Active Protocol: Document 03/20/21 11:12 AG (Rec: 03/20/21 11:12 AG [id number]) Nutrition Malnutrition Evidence of Malnutrition Exists No Intake Problem Inadequate Oral Intake Etiology r/t GI dysfunction Signs/Symptoms as evidenced by no PO intake x 3 days Status Active Problem Clinical Problem Altered GI Function Etiology related to inflammation/ diverticulitis Signs/Symptoms as evidenced by need for sigmoid colectomy w/ end colostomy Status Active Problem Recommendation Dietitian Recommendations/Changes Advance diet as tolerated to transitional. If pt anticipated to remain NPO > 5 days w/ no plans to resume PO diet for >1 week, strongly recommend consideration of EN or TPN. Pt will need HVAC SERVICE TECH evaluation prior to PO diet advancement. Lab / Micro Data Result Diagrams: 03/21/21 04:10 03/21/21 04:10 Labs: Laboratory Results - last 24 hr 03/20/21 10:40: PT Cancelled, INR Cancelled, APTT Cancelled 03/20/21 11:00: PT Cancelled, INR Cancelled, APTT Cancelled 03/20/21 11:30: PT Cancelled, INR Cancelled, APTT Cancelled 03/20/21 12:20: PT 20.2 H, INR 1.8, APTT 47.9 H 03/20/21 13:10: POC Glucose 156 H 03/20/21 18:11: POC Glucose 147 H 03/20/21 18:30: APTT 61.4 H 03/21/21 00:23: POC Glucose 139 H 03/21/21 00:40: APTT 87.9 H 03/21/21 04:10: WBC 17.6 H, RBC 2.95 L, Hgb 8.2 L, Hct 27.3 L, MCV 92.5, MCH 27.8, MCHC 30.0 L, RDW Std Deviation 51.9 H, RDW Coeff of Sean 15.3 H, Plt Count 318, MPV 9.4, Immature Gran % (Auto) 0.800, Neut % (Auto) 87.4 H, Lymph % (Auto) 6.7 L, [place] % (Auto) 4.6, Eos % (Auto) 0.3, Baso % (Auto) 0.2, Absolute Neuts (auto) 15.4 H, Absolute Lymphs (auto) 1.19, Nucleated RBC % 0 03/21/21 04:10: Sodium 142, Potassium 4.4, Chloride 113 H, Carbon Dioxide 22.0, Anion Gap 7, BUN 23 H, Creatinine 0.94, Estim Creat Clear Calc 54.23, Est GFR (MDRD) Af Amer 100, Est GFR (MDRD) Non-Af 82, BUN/Creatinine Ratio 24.4 H, Glucose 148 H, Calcium 8.3 L 03/21/21 06:26: POC Glucose 143 H Micro: Microbiology 03/19/21 10:50 Wound Drainage - Other Gram Stain - Final 03/19/21 10:50 Wound Drainage - Other Wound Culture - Preliminary Gram positive organism 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 difficile DNA Amplification - Final 03/18/21 02:34 Mucosa - Nasopharyngeal SARS-CoV-2 Antigen (Rapid) - Final Radiography Diagnostic Testing: Radiology Impression Brain CT 03/20/21 06:49 IMPRESSION: Findings concerning for a large left MCA territory ischemic stroke. MRI could further characterize as clinically indicated. No evidence of intracranial hemorrhage. Senescent changes and atherosclerosis. Individualized dose optimization techniques were used for this CT. at 0902 Reported and signed by: Isidro Jovel MD N.B. : The above Results were Read Back by Isidro Jovel MD to Chan Corona MD, and understanding confirmed on 03/20/2021 08:59:36 (ET). Electronically Signed: Isidro Jovel MD at 9:01 EDT Tel , Service support , ADDENDUM: 03/20/21 0909 IMPRESSION: Findings concerning for a large left MCA territory ischemic stroke. MRI could further characterize as clinically indicated. No evidence of intracranial hemorrhage. Senescent changes and atherosclerosis. Individualized dose optimization techniques were used for this CT. at 0902 Reported and signed by: Isidro Jovel MD N.B. : The above Results were Read Back by Isidro Jovel MD to Chan Corona MD, and understanding confirmed on 03/20/2021 08:59:36 (ET). Electronically Signed: Isidro Jovel MD at 9:01 EDT Tel , Service support , Chest X-Ray 03/20/21 15:32 IMPRESSION: Right-sided PICC line is in place, tip is in the distal SVC No acute pulmonary process Patient has been extubated, other support lines and tubes remain in their described positions Electronically Signed: Tonio Vasquez MD at 16:03 EDT , Service support , Physical Exam Const Constitutional Narrative: Flat affect. Still aphasic. General Appearance: intubated and patient mechanically ventilated; Negative for in distress HEENT normocephalic, head/scalp atraumatic and moist oral mucous membranes Eyes PERRL and EOMs intact bilaterally Neck full ROM and no lymphadenopathy Chest inspection of chest normal Resp normal respiratory effort and no use of accessory muscles Effort and Inspection: able to speak in complete sentences Auscultation: clear to auscultation bilaterally; Negative for rales, rhonchi or wheezes Percussion: Negative for dullness Cardio S1 normal heart sound, S2 normal heart sound, no murmurs, no rub and no gallops Cardio Narrative: A. fib noted on monitor Rate: tachycardic GI GI Narrative: Colostomy is clean, dry and intact. No areas of duskiness noted. Some grimacing with palpation of the lower abdomen. Slightly distended. no CVA tenderness Extremity General Extremity: edema; Negative for clubbing or cyanosis Skin Skin Narrative: Large incision noted. Some serosanguineous exudate noted. Neuro Neuro Narrative: Movement of right foot noted. Right upper extremity with slight drift. Significant aphasia noted. Patient just blinking when given commands and vocalizing intermittently. This is not associated with respiratory distress. Psych Appearance: intubated Charges/Coding Visit Charges Inpatient E&M: 78564 Subs Hosp L3
[2021-03-21] MEDS: 0.9% Saline Lock 10 ML Syringe IV (07:03)
[2021-03-21 08:06] LABS: Partial Thromboplast Time 69.8 Seconds (24.1-36.2)
--- NOTE | 2021-03-21 08:08 | PCM.PN.SRG ---
Subjective Subjective Patient is a 80 y/o M I am following s/p Sigmoid colectomy with end colostomy and Presley's procedure. Patient is POD #2. He was extubated yesterday and was noted to have neurology changes and was diagnosed with a left MCA stroke. Patient has limited ROM of right upper/lower extremities. He continues to have garbled speech however responds with single word answers appropriately. He notes discomfort around the incision site. Objective Data Objective Data Vital Signs: Vital Signs Temp Pulse Resp BP Pulse Ox 98.8 F 93 27 H 143/66 H 97 03/21/21 04:00 03/21/21 07:00 03/21/21 07:00 03/21/21 07:00 03/21/21 07:00 Oxygen Flow Rate (L/min) 2 Oxygen Delivery Method Nasal Cannula Weight: 225 lb 1.471 oz Body Mass Index (BMI) 36.6 Intake & Output: Intake and Output for Last 24 Hours 03/19/21 03/20/21 03/21/21 23:59 23:59 23:59 Intake Total 2706.38 / 2727.18 3444.52 / 3444.52 1175.85 / 1175.85 Output Total 375 / 465 1780 / 1980 600 / 600 Balance 2331.38 / 2262.18 1664.52 / 1464.52 575.85 / 575.85 Medical Nutrition Assessment Dietitian: Nutrition Therapy Diagnosis Start: 03/18/21 09:59 Freq: Status: Active Protocol: Document 03/20/21 11:12 (Rec: 03/20/21 11:12 [id number]) Nutrition Malnutrition Evidence of Malnutrition Exists No Intake Problem Inadequate Oral Intake Etiology r/t GI dysfunction Signs/Symptoms as evidenced by no PO intake x 3 days Status Active Problem Clinical Problem Altered GI Function Etiology related to inflammation/ diverticulitis Signs/Symptoms as evidenced by need for sigmoid colectomy w/ end colostomy Status Active Problem Recommendation Dietitian Recommendations/Changes Advance diet as tolerated to transitional. If pt anticipated to remain NPO > 5 days w/ no plans to resume PO diet for >1 week, strongly recommend consideration of EN or TPN. Pt will need PHOTOGRAPHIC PRESS SCREWMAKER evaluation prior to PO diet advancement. Lab / Micro Data Result Diagrams: 03/21/21 04:10 03/21/21 04:10 Labs: Laboratory Results - last 24 hr 03/20/21 10:40: PT Cancelled, INR Cancelled, APTT Cancelled 03/20/21 11:00: PT Cancelled, INR Cancelled, APTT Cancelled 03/20/21 11:30: PT Cancelled, INR Cancelled, APTT Cancelled 03/20/21 12:20: PT 20.2 H, INR 1.8, APTT 47.9 H 03/20/21 13:10: POC Glucose 156 H 03/20/21 18:11: POC Glucose 147 H 03/20/21 18:30: APTT 61.4 H 03/21/21 00:23: POC Glucose 139 H 03/21/21 00:40: APTT 87.9 H 03/21/21 04:10: WBC 17.6 H, RBC 2.95 L, Hgb 8.2 L, Hct 27.3 L, MCV 92.5, MCH 27.8, MCHC 30.0 L, RDW Std Deviation 51.9 H, RDW Coeff of Sean 15.3 H, Plt Count 318, MPV 9.4, Immature Gran % (Auto) 0.800, Neut % (Auto) 87.4 H, Lymph % (Auto) 6.7 L, [place] % (Auto) 4.6, Eos % (Auto) 0.3, Baso % (Auto) 0.2, Absolute Neuts (auto) 15.4 H, Absolute Lymphs (auto) 1.19, Nucleated RBC % 0 03/21/21 04:10: Sodium 142, Potassium 4.4, Chloride 113 H, Carbon Dioxide 22.0, Anion Gap 7, BUN 23 H, Creatinine 0.94, Estim Creat Clear Calc 54.23, Est GFR (MDRD) Af Amer 100, Est GFR (MDRD) Non-Af 82, BUN/Creatinine Ratio 24.4 H, Glucose 148 H, Calcium 8.3 L 03/21/21 06:26: POC Glucose 143 H 03/21/21 06:59: APTT 69.8 H Micro: Microbiology 03/19/21 10:50 Wound Drainage - Other Gram Stain - Final 03/19/21 10:50 Wound Drainage - Other Wound Culture - Preliminary Gram positive organism GNR lactose social service agency director 03/19/21 10:50 Wound Drainage - Other Anaerobic Culture - Preliminary Checking for anaerobes, further studies to follow. 03/19/21 07:30 Stool Enteric Bacteriology - Final 03/19/21 07:30 Stool C. difficile DNA Amplification - Final 03/18/21 02:34 Mucosa - Nasopharyngeal SARS-CoV-2 Antigen (Rapid) - Final Radiography Diagnostic Testing: Radiology Impression Brain CT 03/20/21 06:49 IMPRESSION: Findings concerning for a large left MCA territory ischemic stroke. MRI could further characterize as clinically indicated. No evidence of intracranial hemorrhage. Senescent changes and atherosclerosis. Individualized dose optimization techniques were used for this CT. at 0902 Reported and signed by: Isidro Jovel MD N.B. : The above Results were Read Back by Isidro Jovel MD to Chan Corona MD, and understanding confirmed on 03/20/2021 08:59:36 (ET). Electronically Signed: Isidro Jovel MD at 9:01 EDT Tel , Service support , ADDENDUM: 03/20/21 0909 IMPRESSION: Findings concerning for a large left MCA territory ischemic stroke. MRI could further characterize as clinically indicated. No evidence of intracranial hemorrhage. Senescent changes and atherosclerosis. Individualized dose optimization techniques were used for this CT. at 0902 Reported and signed by: Isidro Jovel MD N.B. : The above Results were Read Back by Isidro Jovel MD to Chan Corona MD, and understanding confirmed on 03/20/2021 08:59:36 (ET). Electronically Signed: Isidro Jovel MD at 9:01 EDT Tel , Service support , Chest X-Ray 03/20/21 15:32 IMPRESSION: Right-sided PICC line is in place, tip is in the distal SVC No acute pulmonary process Patient has been extubated, other support lines and tubes remain in their described positions Electronically Signed: Tonio Vasquez MD at 16:03 EDT , Service support , Physical Exam GI soft to palpation GI Narrative: Stoma- red beefy. Colostomy- minimal liquidy serous fluid within the bag. No air or stool present. TIM drain- serosanguineous fluid noted Inspection: incision healing well and other (Chastity intact. Smaller packed openings in the incision healing) Auscultation: hypoactive bowel sounds Palpation: tender LLQ and RLQ Assessment & Plan Assessment/Plan (1) Perforation of sigmoid colon due to diverticulitis: PLAN: Patient progressing well from surgery standpoint Continue NG tube until bowel function Culture preliminary demonstrating Gram positive organism and GNR lactose social service agency director May remove drain tomorrow Okay from surgery standpoint to be transferred out of ICU Charges/Coding Visit Charges Inpatient E&M: 29181 Subs Hosp L1 (No charge; post-op)
--- NOTE | 2021-03-21 08:40 | PCM.PN.HOSP ---
Subjective Subjective I don't know what is going on. Though does state that he knows he had a CVA. Denies abdominal pain. Objective Data Objective Data Vital Signs: Vital Signs Temp Pulse Resp BP Pulse Ox 37.1 C 93 27 H 143/66 H 97 03/21/21 04:00 03/21/21 07:00 03/21/21 07:00 03/21/21 07:00 03/21/21 07:00 Oxygen Flow Rate (L/min) 2 Oxygen Delivery Method Nasal Cannula Weight: 102.1 kg Body Mass Index (BMI) 36.6 Intake & Output: Intake and Output for Last 24 Hours 03/19/21 03/20/21 03/21/21 23:59 23:59 23:59 Intake Total 2706.38 / 2727.18 3444.52 / 3444.52 1256.12 / 1256.12 Output Total 375 / 465 1780 / 1980 600 / 600 Balance 2331.38 / 2262.18 1664.52 / 1464.52 656.12 / 656.12 Medical Nutrition Assessment Dietitian: Nutrition Therapy Diagnosis Start: 03/18/21 09:59 Freq: Status: Active Protocol: Document 03/20/21 11:12 AG (Rec: 03/20/21 11:12 AG [id number]) Nutrition Malnutrition Evidence of Malnutrition Exists No Intake Problem Inadequate Oral Intake Etiology r/t GI dysfunction Signs/Symptoms as evidenced by no PO intake x 3 days Status Active Problem Clinical Problem Altered GI Function Etiology related to inflammation/ diverticulitis Signs/Symptoms as evidenced by need for sigmoid colectomy w/ end colostomy Status Active Problem Recommendation Dietitian Recommendations/Changes Advance diet as tolerated to transitional. If pt anticipated to remain NPO > 5 days w/ no plans to resume PO diet for >1 week, strongly recommend consideration of EN or TPN. Pt will need COPY CLERK evaluation prior to PO diet advancement. Lab / Micro Data Result Diagrams: 03/21/21 04:10 03/21/21 04:10 Labs: Laboratory Results - last 24 hr 03/20/21 10:40: PT Cancelled, INR Cancelled, APTT Cancelled 03/20/21 11:00: PT Cancelled, INR Cancelled, APTT Cancelled 03/20/21 11:30: PT Cancelled, INR Cancelled, APTT Cancelled 03/20/21 12:20: PT 20.2 H, INR 1.8, APTT 47.9 H 03/20/21 13:10: POC Glucose 156 H 03/20/21 18:11: POC Glucose 147 H 03/20/21 18:30: APTT 61.4 H 03/21/21 00:23: POC Glucose 139 H 03/21/21 00:40: APTT 87.9 H 03/21/21 04:10: WBC 17.6 H, RBC 2.95 L, Hgb 8.2 L, Hct 27.3 L, MCV 92.5, MCH 27.8, MCHC 30.0 L, RDW Std Deviation 51.9 H, RDW Coeff of Sean 15.3 H, Plt Count 318, MPV 9.4, Immature Gran % (Auto) 0.800, Neut % (Auto) 87.4 H, Lymph % (Auto) 6.7 L, [place] % (Auto) 4.6, Eos % (Auto) 0.3, Baso % (Auto) 0.2, Absolute Neuts (auto) 15.4 H, Absolute Lymphs (auto) 1.19, Nucleated RBC % 0 03/21/21 04:10: Sodium 142, Potassium 4.4, Chloride 113 H, Carbon Dioxide 22.0, Anion Gap 7, BUN 23 H, Creatinine 0.94, Estim Creat Clear Calc 54.23, Est GFR (MDRD) Af Amer 100, Est GFR (MDRD) Non-Af 82, BUN/Creatinine Ratio 24.4 H, Glucose 148 H, Calcium 8.3 L 03/21/21 06:26: POC Glucose 143 H 03/21/21 06:59: APTT 69.8 H Micro: Microbiology 03/19/21 10:50 Wound Drainage - Other Gram Stain - Final 03/19/21 10:50 Wound Drainage - Other Wound Culture - Preliminary Gram positive organism GNR lactose physical education teacher 03/19/21 10:50 Wound Drainage - Other Anaerobic Culture - Preliminary Checking for anaerobes, further studies to follow. 03/19/21 07:30 Stool Enteric Bacteriology - Final 03/19/21 07:30 Stool C. difficile DNA Amplification - Final 03/18/21 02:34 Mucosa - Nasopharyngeal SARS-CoV-2 Antigen (Rapid) - Final Radiography Diagnostic Testing: Radiology Impression Brain CT 03/20/21 06:49 IMPRESSION: Findings concerning for a large left MCA territory ischemic stroke. MRI could further characterize as clinically indicated. No evidence of intracranial hemorrhage. Senescent changes and atherosclerosis. Individualized dose optimization techniques were used for this CT. at 0902 Reported and signed by: Isidro Jovel MD N.B. : The above Results were Read Back by Isidro Jovel MD to Chan Corona MD, and understanding confirmed on 03/20/2021 08:59:36 (ET). Electronically Signed: Isidro Jovel MD at 9:01 EDT Tel , Service support , ADDENDUM: 03/20/21 0909 IMPRESSION: Findings concerning for a large left MCA territory ischemic stroke. MRI could further characterize as clinically indicated. No evidence of intracranial hemorrhage. Senescent changes and atherosclerosis. Individualized dose optimization techniques were used for this CT. at 0902 Reported and signed by: Isidro Jovel MD N.B. : The above Results were Read Back by Isidro Jovel MD to Chan Corona MD, and understanding confirmed on 03/20/2021 08:59:36 (ET). Electronically Signed: Isidro Jovel MD at 9:01 EDT Tel , Service support , Chest X-Ray 03/20/21 15:32 IMPRESSION: Right-sided PICC line is in place, tip is in the distal SVC No acute pulmonary process Patient has been extubated, other support lines and tubes remain in their described positions Electronically Signed: Tonio Vasquez MD at 16:03 EDT , Service support , Physical Exam Const Constitutional Narrative: less confused today HEENT head/scalp atraumatic HEENT Narrative: edentulous Head and Scalp: normocephalic Eyes PERRL Neck no lymphadenopathy Resp normal respiratory effort, no use of accessory muscles and clear to auscultation bilaterally Cardio regular rate, regular rhythm, S1 normal heart sound and S2 normal heart sound GI non-distended GI Narrative: hypoactive BS. soft. ostomy intact Extremity normal to inspection Peripheral Pulses: Yes pulses 2+ throughout Skin no rashes or lesions noted Neuro Neuro Narrative: MS 4/5 in RUE and RLE. PERRL. EOMI. Psych Mood & Affect: anxious Assessment & Plan Assessment/Plan (1) Abdominal abscess: (2) Colitis: (3) Enteritis: (4) Carotid stenosis: QUALIFIERS: Laterality: right Qualified Code(s): I65.21 - Occlusion and stenosis of right carotid artery PLAN: 1. 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 Copious purulent material throughout. Cx GPO + GNR plan: continue pip/tazo, NPO, additional mgmt per surgery 2. acute respiratory failure maintained on ventilator after extensive surgery extubated 03/20 3. Acute LMCA CVA aphasia, right-sided neglect, started on heparin gtt for anticoagulation unknown last time normal prior to deficits noted not candidate for TPA given recent surgery therapy eval will need SNF/rehab upon discharge Check MRI brain, MRA H/N, echo. After that is back, consult neurology 3. carotid stenosis greater than 70% stenosis on right. Chronic left carotid occlusion. Similiar to 04/09/[address] Bhatia in past and not deemed a candidate in past for CEA 5. coagulopathy resolved with 2 doses of 5mg of vitamin K 6. afib warfarin held heparin gtt started 03/20 7. Hypertensive urgency stable amlodipine held 8. VTE prophylaxis: SCDs 9. CAD LHC in 11/2020 showing non-obstructive CAD ASA, clopidogrel currently held. Resume when ok with general surgery 10. mild noted on 2d echo from 11/21/2020 outpt follow up with cardiology Transfer out of ICU. DW pt's and updated her about CVA. Charges/Coding Visit Charges Inpatient E&M: 25929 Disch Hosp
--- NOTE | 2021-03-21 08:42 | MRI_ITS ---
STUDY: MRA NECK WITHOUT CONTRAST REASON FOR EXAM: Male, 80 years old. CVA TECHNIQUE: Source images were obtained, MIPs were performed. The study was performed unenhanced. COMPARISON: None. FINDINGS: RIGHT CAROTID ARTERIES: Mild plaquing of the right common carotid artery (CCA). Mild plaquing of the right common carotid bulb. Normal origin of the right internal carotid (ICA) artery without a hemodynamically significant stenosis. Normal visualized cervical portion of the right internal carotid artery. Normal origin of the right external carotid artery (ECA). LEFT CAROTID ARTERIES: Normal left common carotid artery (CCA). Moderate plaquing of the left common carotid bulb. Severe plaquing of the origin of the left internal carotid (ICA) artery creating hemodynamically significant stenosis and occlusion. Occluded cervical portion of the left internal carotid artery. Normal origin of the left external carotid artery (ECA). VERTEBRAL ARTERIES: Normal antegrade flow within the bilateral vertebral artery without a hemodynamically significant stenosis. MRI/MRA Neck without Contrast IMPRESSION: Atherosclerotic disease more severe on the left with occlusion of the left internal carotid just distal to the origin. Electronically Signed: Arcadio Landin MD at 17:07 EDT , Service support ,
--- NOTE | 2021-03-21 08:42 | MRI_ITS ---
STUDY: MRA OF THE HEAD WITHOUT CONTRAST REASON FOR EXAM: Male, 80 years old. CVA TECHNIQUE: 3-D [id number] (TOF) imaging was performed with MIPs. The study was performed unenhanced. COMPARISON: None. FINDINGS: Normal right petrous carotid artery.. Normal right cavernous carotid artery with a normal supraclinoid bifurcation. No flow visualized within the left petrous cavernous carotid or supraclinoid segment. Normal right A1 segments of the anterior cerebral artery. Normal left A1 segments of the anterior cerebral artery. Normal intact anterior communicating artery (ACOM). Normal bilateral A2 segments of the anterior cerebral arteries. Normal right M1 and M2 segments of the middle cerebral arteries, with a normal M1 bifurcation. Normal left M1 and M2 segments of the middle cerebral arteries, with a normal M1 bifurcation. Posterior communicating arteries not visualized consistent with normal variant Normal bilateral vertebral arteries. Normal basilar artery with a normal basilar bifurcation. The visualized bilateral superior cerebellar (SCA) arteries are normal. Normal bilateral P1, P2 and visualized P3 segments of the posterior cerebral arteries. There is no demonstrated aneurysm of the s[place]ogon of Chambers. MRI/MRA Head ONLY without Contrast IMPRESSION: Occlusion of the left petrous, cavernous and supraclinoid carotid. There is reconstitution of the anterior and middle cerebral arteries via collaterals. The anterior cerebral and middle cerebral arteries appear grossly patent although somewhat attenuated in perfusion on the reconstructed images in part due to motion artifact although appear patent on the source images due to reconstitution by collaterals.. Electronically Signed: Arcadio Landin MD at 17:04 EDT , Service support ,
--- NOTE | 2021-03-21 08:42 | ECHOD_ITS ---
Reason For Study: TIA/CVA Procedure This was a 2D Doppler, Color Flow transthoracic echocardiogram. Exam performed portable in patient room. Bubble study deferred due to KNOWN PFO. Left Ventricle Mild concentric left ventricular hypertrophy. The estimated ejection fraction is EF 55-60 %. Right Ventricle Mildly dilated right ventricle. Atria The left atrium is moderately enlarged. Mitral Valve There is mild to moderate mitral annular calcification. Mild (1+) eccentric mitral valve insufficiency. Tricuspid Valve Normal tricuspid valve. Moderate (2+) tricuspid valve insufficiency. Pulmonary artery systolic pressure is PASP 55 mmhg(moderate piulmonary Hypertension} mmHg. Aortic Valve Moderate diffuse aortic valve calcification. Mild aortic stenosis. Mild (1+) aortic valve insufficiency. Pulmonic Valve The pulmonic valve is not well visualized. Great Vessels Normal aortic root. Pericardium/Pleural No pericardial effusion. MMode/2D Measurements & Calculations LVIDd: 4.9 cm IVSd: 1.1 cm LVOT diam: 2.0 cm LVIDs: 3.1 cm LVPWd: 1.1 cm LVOT area: 3.0 cm2 FS: 37.6 % Ao root diam: 3.6 cm LAV(MOD-bp): 96.6 ml Aortic Valve Planimetry: 1.8 cm2 LA dimension: 5.4 cm LAV(MOD-bp) Indexed: 47.0 ml/m2 LAV(MOD-sp2): 88.5 ml LAV(MOD-sp4): 86.9 ml LA A4 area: 26.9 cm2 RA A4 area: 19.5 cm2 Doppler Measurements & Calculations MV E max quirino: 139.8 cm/sec Lat A' quirino: 16.5 cm/sec Med Peak E' Quirino: 9.4 cm/sec E/E' med: 14.9 Ao V2 max: 239.5 cm/sec LV V1 max: 135.6 cm/sec SV(LVOT): 76.5 ml Ao max P.0 mmHg LV V1 max P.4 mmHg Ao V2 mean: 163.1 cm/sec LV V1 mean P.6 mmHg Ao mean P.9 mmHg LV V1 mean: 90.3 cm/sec Ao V2 VTI: 44.5 cm LV V1 VTI: 25.1 cm PEARL(I,D): 1.7 cm2 PEARL(V,D): 1.7 cm2 TR max quirino: 355.7 cm/sec TR max P.6 mmHg ECHO/Echo Complete Interpretation Summary The estimated ejection fraction is EF 55-60 %. Mild , PEARL 1.8 cm2 with AV max gradient of 23 mmhg and mean AV pressure gradient of 11.9 mmhg MIld AR Mild MR Moderate TR PASP calculated 55 mmhg,consistent with moderate pulmpnary Hypertension Similiar to prior echo in 11/21/20. No significant changes from prior Echo Ordering Physician: Alfie Haq Referring Physician: Yoon Alba Performed By: Zora Nickerson RDCS, RVT
--- NOTE | 2021-03-21 08:42 | MRI_ITS ---
We are attempting to reach an attending provider to discuss findings. An addendum with communication details will be sent when the communication is complete. STUDY: MRI BRAIN WITHOUT CONTRAST REASON FOR EXAM: Male, 80 years old. CVA TECHNIQUE: Standardized multiplanar fat and water weighted pulse sequences were obtained. COMPARISON: CT of the brain 03/20/2021 FINDINGS: Mild atrophy and periventricular white matter ischemic changes.. There is diffuse gliosis in the left posterior temporal lobe, posterior frontal and parietal lobes demonstrating restricted diffusion consistent with acute ischemic changes in distribution of the left middle cerebral artery. There is diffuse effacement of cortical sulci but no significant mass effect upon the lateral ventricle or midline shift. There is also involvement of the left basal ganglia . Normal thalami. There is no extra-axial fluid accumulation. Normal flow voids within the major intracranial circulation suggesting patency by spin echo criteria. There are signal abnormalities within the left cavernous and supraclinoid carotid consistent with thrombosis and possibly occlusion Normal sella turcica, pituitary gland, infundibular stalk, optic chiasm and hypothalamus. Normal tectal plate and pineal gland. Normal midbrain, noam and medulla. Normal cerebellum. Normal basal cisterns. Normal bilateral temporal bones. Normal bilateral internal auditory canals. Postsurgical changes of the orbits.. Minor mucosal thickening of the ethmoid air cells.. Normal calvarium and skull base. Normal visualized soft tissue structures. Normal visualized upper cervical spine. MRI/Brain without Contrast IMPRESSION: Acute ischemic infarction in left middle cerebral artery territory involving the posterior temporal lobe, posterior left frontal lobe and parietal lobe. Thrombosis or possibly occlusion of the left cavernous carotid and supraclinoid portion Electronically Signed: Arcadio Landin MD at 16:54 EDT , Service support ,
[2021-03-21 09:26] LABS: Troponin-I HS 52.1 pg/mL (3.0-78.5)
[2021-03-21 11:35] LABS: Bedside Glucose 145 mg/dL (70-110)
--- NOTE | 2021-03-21 12:30 | CASEMGMT ---
Social Work Consult: Placement Referral source: RN SINGH. Attempted to meet with patient in room. Patient sleeping and was not easily woken. Telephone call to patient spouse, Heydi. No answer. Voicemail left. Therapy recommending for patient to have continued therapy. Will continue to follow. Angela Crockett MSW, LULA
--- NOTE | 2021-03-21 13:56 | CASEMGMT ---
Social Work Met with patient in room. Introduced self and nursing home social worker role. Patient son, Paras Palmer ([phone]) present. Patient agreeable to this nursing home social worker speaking openly with patient son present. This nursing home social worker broached topic of Inpatient Rehab Unit for patient. Patient is agreeable to recommendation as patient lives at home with spouse and patient spouse is unable to care for patient. Patient typically was caring for patient spouse. Patient spouse has family staying with for support. Paras (son) encouraged nursing home social worker/medical team to contact Eli Pickering ([phone]) to get in contact with patient spouse as Eli is the primary caregiver for patient spouse currently while patient is in the hospital. Support provided. Telephone call to [facility]. Patient placed on list. Will continue to follow. Angela FERNANDO, ALISHAS
[2021-03-21 13:58] LABS: International Normalized Ratio 2.1; Prothrombin Time (Protime)PT. 22.6 SECONDS (11.7-14.9)
--- NOTE | 2021-03-21 14:16 | CASEMGMT ---
Social Work PHQ-9 assessment completed with patient. See attached for complete details. Angela FERNANDO, LULA
[2021-03-21 17:00] LABS: Partial Thromboplast Time 27.3 Seconds (24.1-36.2)
--- NOTE | 2021-03-21 17:03 | TELEMED_ITS ---
SOC Telemed has confirmed receipt of a request for visit. This document confirms receipt of the order initiating the consult. To find the results of the consultation, please view the patient's reports for the scanned Telemed Consult.
--- NOTE | 2021-03-21 17:55 | RAD_ITS ---
STUDY: X-RAY - RIGHT KNEE REASON FOR EXAM: Right knee pain, right knee injury from a fall. TECHNIQUE: 2 view(s) of the knee. COMPARISON: Radiographs 11/29/2012. FINDINGS: There is a right total knee arthroplasty without evidence of complication. There is patellar enthesopathy. There is vascular calcification. RAD/Knee 1 or 2 Views IMPRESSION: Uncomplicated right total knee arthroplasty. Electronically Signed: Joseph Barrett MD at 8:26 EDT Tel , Service support ,
[2021-03-21 18:55] LABS: Bedside Glucose 161 mg/dL (70-110)
[2021-03-21] MEDS: Insulin Lispro 100 UNIT/ML INSULN.PEN SC ×2 (18:59→22:34)
[2021-03-21] MEDS: hydrALAZINE 20 MG/ML Vial 10 MG IV (20:08)
--- NOTE | 2021-03-21 20:50 | RAD_ITS ---
STUDY: X-RAY CHEST REASON FOR EXAM: Male, 80 years old. SOB, post-op TECHNIQUE: AP portable COMPARISON: 03/20/2021 FINDINGS: There is elevated right hemidiaphragm and mild basilar atelectasis. There is also patchy infiltrate or atelectasis at left base with possible tiny effusion. Normal size heart. Normal mediastinum and lourdes. Normal visualized pulmonary arteries. Mildly calcified aortic arch and descending thoracic aorta. Dorsal spine and shoulders demonstrate degenerative change. Normal visualized ribs, and clavicles There is no demonstrated abnormality of the visualized soft tissue structures of the upper abdomen. RAD/Chest 1 View (Portable) IMPRESSION: Bibasilar atelectasis or infiltrate slightly more pronounced on the left. Electronically Signed: Arcadio Landin MD at 22:13 EDT , Service support ,
[2021-03-21] MEDS: Ipratropium/Albuterol Sulfate 3 ML AMPUL.NEB INHALATION (20:55)
[2021-03-21] MEDS: Furosemide 40 MG/4 ML Vial IV (21:19)
[2021-03-21 22:40] LABS: Bedside Glucose 164 mg/dL (70-110)
[2021-03-22] VITALS (26 sets, daily range): BP systolic 146–180; BP diastolic 63–83; PULSE 81–95; RESP 20–30; TEMP 36.1–37.4; O2SAT 96–100
[2021-03-22] MEDS: hydrALAZINE 20 MG/ML Vial 10 MG IV ×2 (01:16→18:31)
[2021-03-22] MEDS: Ipratropium/Albuterol Sulfate 3 ML AMPUL.NEB INHALATION ×5 (04:27→19:33)
[2021-03-22 05:51] LABS: Absolute Lymphocyte Count 0.79 X10^3/uL (0.83-4.51); Absolute Neutrophil Count 11.1 X10^3/uL (2.0-7.7); Basophil# 0.01 X10^3/uL; Basophil% 0.1 % (0-1); Eosinophil# 0.05 X10^3/uL; Eosinophils% 0.4 % (0-5); Hematocrit 28.8 % (40-54); Hemoglobin 8.5 g/dL (13.0-16.5); Lymphocyte # 0.79 X10^3/ul (0.83-4.51); Lymphocyte % 6.2 % (19-41); Mean Corp Hgb Conc 29.5 g/dL (32-36); Mean Corpuscular Hgb 27.2 pg (27.0-32.0); Mean Corpuscular Volume 92.3 fL (80-94); Mean Platelet Vol. 9.1 fl (6.2-12.0); Monocyte# 0.65 X10^3/uL; Monocyte% 5.1 % (0-10); NRBC Flagged by Analyzer 0 % (0-5); Neutrophil # 11.08 X10^3/uL (2.7-7.7); Neutrophil % 87.5 % (47-70); Platelet Count 286 K/mm3 (150-450); RBC Distribution Width CV 15.1 % (11.6-14.6); Red Blood Count 3.12 M/mm3 (4.6-6.2); White Blood Count 12.7 K/mm3 (4.4-11.0)
[2021-03-22 06:19] LABS: Anion Gap 10 (5-15); BUN 18 mg/dL (7-18); BUN/Creat Ratio 22.4 RATIO (10-20); Calcium,Total 8.8 mg/dL (8.5-10.1); Chloride 112 mmol/L (98-107); Cholesterol 94 mg/dL (200); EST Glomerular Filtration Rate 99 mL/min (>60); Est Glom Filt Rate - Afr Amer 120 mL/min (>60); Estimated Creatinine Clearance 63.72 ml/min; Glucose 156 mg/dL (74-106); High Density Lipoprotein 17 mg/dL; Potassium 3.5 mmol/L (3.5-5.1); Sodium Level 144 mmol/L (136-145); Triglycerides 123 mg/dL; Very Low Density Lipoprotein 25 mg/dL (5-40)
[2021-03-22] MEDS: Insulin Lispro 100 UNIT/ML INSULN.PEN SC ×2 (06:46→23:39)
[2021-03-22 07:11] LABS: Bedside Glucose 152 mg/dL (70-110)
--- NOTE | 2021-03-22 07:38 | PN.SURG_ITS ---
Subjective Subjective Patient's ostomy is still edematous no stool --patient did pull out his NG yesterday no nausea or vomiting overnight. An NG was only putting out minimal Objective Data Objective Data Vital Signs: Vital Signs Temp Pulse Resp BP Pulse Ox 99.0 F 95 30 H 146/72 H 96 03/22/21 06:00 03/22/21 07:24 03/22/21 07:24 03/22/21 06:00 03/22/21 07:24 Oxygen Flow Rate (L/min) 3 Oxygen Delivery Method Nasal Cannula Weight: 224 lb 13.944 oz Body Mass Index (BMI) 36.6 Intake & Output: Intake and Output for Last 24 Hours 03/20/21 03/21/21 03/22/21 23:59 23:59 23:59 Intake Total 3444.52 / 3444.52 3828.72 / 3828.72 50 / 50 Output Total 1779 / 1979 1250 / 2515 3365 / 3365 Balance 1664.52 / 1464.52 2578.72 / 1313.72 -3315 / -3315 Medical Nutrition Assessment Dietitian: Nutrition Therapy Diagnosis Start: 03/18/21 09:59 Freq: Status: Active Protocol: Document 03/21/21 10:16 RMA (Rec: 03/21/21 10:16 RMA [id number]) Nutrition Malnutrition Evidence of Malnutrition Exists No Intake Problem Inadequate Oral Intake Etiology r/t GI dysfunction Signs/Symptoms as evidenced by no PO intake x 4 days Status Active Problem Clinical Problem Altered GI Function Etiology related to inflammation/ diverticulitis Signs/Symptoms as evidenced by need for sigmoid colectomy w/ end colostomy and continued NPO status Status Active Problem Recommendation Dietitian Recommendations/Changes 1.) Advance diet as tolerated and medically able to Transitional. 2.) If pt anticipated to remain NPO > 5 days w/ no plans to resume PO diet for >1 week, recommend consideration of TF if PO remains contraindicated or TPN if enteral nutrition and PO diet remain contraindicated-- consult RDN as indicated for order and management of nutrition support. 3.) Pt will need FRONT DESK AUXILIARY evaluation prior to PO diet advancement--consistency of solids/liquids as per speech. Lab / Micro Data Result Diagrams: 03/22/21 05:38 03/22/21 05:38 Labs: Laboratory Results - last 24 hr 03/21/21 04:10: Troponin I High Sens 52.1 03/21/21 06:59: PT 22.6 H, INR 2.1 03/21/21 06:59: APTT 69.8 H 03/21/21 11:29: POC Glucose 145 H 03/21/21 16:35: APTT 27.3 03/21/21 18:05: POC Glucose 161 H 03/21/21 22:32: POC Glucose 164 H 03/22/21 05:38: WBC 12.7 H, RBC 3.12 L, Hgb 8.5 L, Hct 28.8 L, MCV 92.3, MCH 27.2, MCHC 29.5 L, RDW Std Deviation 51.0 H, RDW Coeff of Sean 15.1 H, Plt Count 286, MPV 9.1, Immature Gran % (Auto) 0.700, Neut % (Auto) 87.5 H, Lymph % (Auto) 6.2 L, [place] % (Auto) 5.1, Eos % (Auto) 0.4, Baso % (Auto) 0.1, Absolute Neuts (auto) 11.1 H, Absolute Lymphs (auto) 0.79 L, Nucleated RBC % 0 03/22/21 05:38: Sodium 144, Potassium 3.5, Chloride 112 H, Carbon Dioxide 22.0, Anion Gap 10, BUN 18, Creatinine 0.80, Estim Creat Clear Calc 63.72, Est GFR (MDRD) Af Amer 120, Est GFR (MDRD) Non-Af 99, BUN/Creatinine Ratio 22.4 H, Glucose 156 H, Calcium 8.8, Triglycerides 123, Cholesterol 94, LDL Cholesterol 52, VLDL Cholesterol 25, HDL Cholesterol 17 L 03/22/21 06:45: POC Glucose 152 H Micro: Microbiology 03/19/21 10:50 Wound Drainage - Other Gram Stain - Final 03/19/21 10:50 Wound Drainage - Other Wound Culture - Preliminary Alpha Hemolytic Streptococcus 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 03/19/21 07:30 Stool Enteric Bacteriology - Final 03/19/21 07:30 Stool C. 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 Thrombosis or possibly occlusion of the left cavernous carotid and supraclinoid portion N.B. : The above Results were Read Back by Arcadio Landin MD to Diamond Nicholson RN, and understanding confirmed on 03/21/2021 17:03:26 (ET). Electronically Signed: Arcadio Landin MD at 16:54 EDT , Service support , Echocardiogram 03/21/21 08:42 Interpretation Summary The estimated ejection fraction is EF 55-60 %. Mild , PEARL 1.8 cm2 with AV max gradient of 23 mmhg and mean AV pressure gradient of 11.9 mmhg MIld AR Mild MR Moderate TR PASP calculated 55 mmhg,consistent with moderate pulmpnary Hypertension Similiar to prior echo in 11/21/20. No significant changes from prior Echo Ordering Physician: Alfie Haq Referring Physician: Yoon Alba Performed By: Zora Nickerson, RDCS, RVT Head MRA 03/21/21 08:42 IMPRESSION: Occlusion of the left petrous, cavernous and supraclinoid carotid. There is reconstitution of the anterior and middle cerebral arteries via collaterals. The anterior cerebral and middle cerebral arteries appear grossly patent although somewhat attenuated in perfusion on the reconstructed images in part due to motion artifact although appear patent on the source images due to reconstitution by collaterals.. Electronically Signed: Arcadio Landin MD at 17:04 EDT , Service support , Neck MRA 03/21/21 08:42 IMPRESSION: Atherosclerotic disease more severe on the left with occlusion of the left internal carotid just distal to the origin. Electronically Signed: Arcadio Landin MD at 17:07 EDT , Service support , Chest X-Ray 03/21/21 20:50 IMPRESSION: Bibasilar atelectasis or infiltrate slightly more pronounced on the left. Electronically Signed: Arcadio Landin MD at 22:13 EDT , Service support , Physical Exam Resp normal respiratory effort Cardio regular rate GI GI Narrative: Abdomen: Soft, nondistended, tender near incision, midline incision closed with reinier and 3 wet-to-dry with locations packed, ostomy edematous no stool, TIM serous, no peritoneal signs Assessment & Plan Assessment/Plan (1) Perforation of sigmoid colon due to diverticulitis: PLAN: Await bowel function before diet. Okay to keep NG out unless patient has vomiting We will plan to remove TIM later today. Continue IV Stacie Kim M.D. Pager: [phone] [facility] [address] [place] [address], [facility], [address] [place] [address] Office: [phone]
--- NOTE | 2021-03-22 08:07 | PN.CC_ITS ---
Assessment & Plan Assessment/Plan (1) Perforation of sigmoid colon due to diverticulitis: (2) Longstanding persistent atrial fibrillation: (3) Occlusion and stenosis of bilateral carotid arteries: (4) Diabetes mellitus, type II: QUALIFIERS: Diabetes mellitus complication status: without complication Diabetes mellitus supervisor intermediates insulin use: without penitentiary use Qualified Code(s): E11.9 - Type 2 diabetes mellitus without complications (5) Essential (primary) hypertension: PLAN: RECOMMENDATIONS: 1. Continue empiric antibiotics 2. Consider SOC consult 3. Okay to discontinue heparin drip from my perspective 4. Allow for permissive hypertension 5. Therapies to evaluate 6. Hemodynamically stable on minimal nasal cannula. Will sign off from a critical care perspective IMPRESSIONS: 1. Sigmoid diverticulitis with perforation Extensive contamination of the abdomen suggested by operative procedure. Patient is on empiric antibiotics at this time and responding well. White blood cell count continues to improve. Blood pressures are holding. Antihypertensives were held secondary to attempts at permissive hypertension. We will continue to monitor. Creatinine has normalized. Patient may have s ignificant decompensation given mobilization of purulent material. 2. Acute hypoxic respiratory failure Resolved. Clinical suspicion for an element of splinting secondary to abdominal situation. Patient reportedly has never been a smoker and has no history of asthma that we are aware of. Wean supplemental oxygen as tolerated. 3. Peripheral vascular disease/persistent A. fib/hypertension/coronary artery disease/advanced age/obesity/mild Complicates care, management, recovery and prognosis. Reinitiation of antiplatelets and anticoagulation per surgery. Anticipate as needed medications for hypertension as necessary. Low clinical suspicion for pulmonary edema from CHF at this time. 4. Left MCA CVA Consider initiation of stroke protocol including neurology consult and therapies. Patient is hemodynamically stable enough to proceed. Significantly improved over the last 24 hours from a neuro status. Defer to hospitalist on continued work-up. Subjective Subjective Patient did well overnight. Patient's neuro status continues to improve. Patient was interactive today and asking what are the plans for today. Patient states his pain is well controlled. Patient is not reporting any nausea or vomiting. Patient states his right arm is becoming more strong. Objective Data Objective Data Vital Signs: Vital Signs Temp Pulse Resp BP Pulse Ox 37.2 C 95 30 H 146/72 H 96 03/22/21 06:00 03/22/21 07:24 03/22/21 07:24 03/22/21 06:00 03/22/21 07:24 Oxygen Flow Rate (L/min) 3 Oxygen Delivery Method Nasal Cannula Weight: 102 kg Body Mass Index (BMI) 36.6 Intake & Output: Intake and Output for Last 24 Hours 03/20/21 03/21/21 03/22/21 23:59 23:59 23:59 Intake Total 3444.52 / 3444.52 3828.72 / 3828.72 50 / 50 Output Total 1779 1250 / 2515 3365 / 3365 Balance 1664.52 / 1464.52 2578.72 / 1313.72 -3315 / -3315 Medical Nutrition Assessment Dietitian: Nutrition Therapy Diagnosis Start: 03/18/21 09:59 Freq: Status: Active Protocol: Document 03/21/21 10:16 RMA (Rec: 03/21/21 10:16 RMA [id number]) Nutrition Malnutrition Evidence of Malnutrition Exists No Intake Problem Inadequate Oral Intake Etiology r/t GI dysfunction Signs/Symptoms as evidenced by no PO intake x 4 days Status Active Problem Clinical Problem Altered GI Function Etiology related to inflammation/ diverticulitis Signs/Symptoms as evidenced by need for sigmoid colectomy w/ end colostomy and continued NPO status Status Active Problem Recommendation Dietitian Recommendations/Changes 1.) Advance diet as tolerated and medically able to Transitional. 2.) If pt anticipated to remain NPO > 5 days w/ no plans to resume PO diet for >1 week, recommend consideration of TF if PO remains contraindicated or TPN if enteral nutrition and PO diet remain contraindicated-- consult RDN as indicated for order and management of nutrition support. 3.) Pt will need CUSTOMER EQUIPMENT ENGINEER evaluation prior to PO diet advancement--consistency of solids/liquids as per speech. Lab / Micro Data Result Diagrams: 03/22/21 05:38 03/22/21 05:38 Labs: Laboratory Results - last 24 hr 03/19/21 08:40: Crossmatch See Detail 03/21/21 04:10: Troponin I High Sens 52.1 03/21/21 06:59: PT 22.6 H, INR 2.1 03/21/21 11:29: POC Glucose 145 H 03/21/21 16:35: APTT 27.3 03/21/21 18:05: POC Glucose 161 H 03/21/21 22:32: POC Glucose 164 H 03/22/21 05:38: WBC 12.7 H, RBC 3.12 L, Hgb 8.5 L, Hct 28.8 L, MCV 92.3, MCH 27.2, MCHC 29.5 L, RDW Std Deviation 51.0 H, RDW Coeff of Sean 15.1 H, Plt Count 286, MPV 9.1, Immature Gran % (Auto) 0.700, Neut % (Auto) 87.5 H, Lymph % (Auto) 6.2 L, [place] % (Auto) 5.1, Eos % (Auto) 0.4, Baso % (Auto) 0.1, Absolute Neuts (auto) 11.1 H, Absolute Lymphs (auto) 0.79 L, Nucleated RBC % 0 03/22/21 05:38: Sodium 144, Potassium 3.5, Chloride 112 H, Carbon Dioxide 22.0, Anion Gap 10, BUN 18, Creatinine 0.80, Estim Creat Clear Calc 63.72, Est GFR (MDRD) Af Amer 120, Est GFR (MDRD) Non-Af 99, BUN/Creatinine Ratio 22.4 H, Glucose 156 H, Calcium 8.8, Triglycerides 123, Cholesterol 94, LDL Cholesterol 52, VLDL Cholesterol 25, HDL Cholesterol 17 L 03/22/21 06:45: POC Glucose 152 H Micro: Microbiology 03/19/21 10:50 Wound Drainage - Other Gram Stain - Final 03/19/21 10:50 Wound Drainage - Other Wound Culture - Preliminary Alpha Hemolytic Streptococcus Escherichia coli 03/19/21 10:50 Wound Drainage - Other Anaerobic Culture - Preliminary Checking for anaerobes, further studies to follow. 03/19/21 07:30 Stool Enteric Bacteriology - Final 03/19/21 07:30 Stool C. 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 Thrombosis or possibly occlusion of the left cavernous carotid and supraclinoid portion N.B. : The above Results were Read Back by Arcadio Landin MD to Diamond Nicholson RN, and understanding confirmed on 03/21/2021 17:03:26 (ET). Electronically Signed: Arcadio Landin MD at 16:54 EDT , Service support , Echocardiogram 03/21/21 08:42 Interpretation Summary The estimated ejection fraction is EF 55-60 %. Mild , PEARL 1.8 cm2 with AV max gradient of 23 mmhg and mean AV pressure gradient of 11.9 mmhg MIld AR Mild MR Moderate TR PASP calculated 55 mmhg,consistent with moderate pulmpnary Hypertension Similiar to prior echo in 11/21/20. No significant changes from prior Echo __ Ordering Physician: Alfie Haq Referring Physician: Yoon Alba Performed By: Zora Nickerson, RDCS, RVT Head MRA 03/21/21 08:42 IMPRESSION: Occlusion of the left petrous, cavernous and supraclinoid carotid. There is reconstitution of the anterior and middle cerebral arteries via collaterals. The anterior cerebral and middle cerebral arteries appear grossly patent although somewhat attenuated in perfusion on the reconstructed images in part due to motion artifact although appear patent on the source images due to reconstitution by collaterals.. Electronically Signed: Arcadio Landin MD at 17:04 EDT , Service support , Neck MRA 03/21/21 08:42 IMPRESSION: Atherosclerotic disease more severe on the left with occlusion of the left internal carotid just distal to the origin. Electronically Signed: Arcadio Landin MD at 17:07 EDT , Service support , Chest X-Ray 03/21/21 20:50 IMPRESSION: Bibasilar atelectasis or infiltrate slightly more pronounced on the left. Electronically Signed: Arcadio Landin MD at 22:13 EDT , Service support , Physical Exam Const Constitutional Narrative: Flat affect. Dysarthric, but not aphasic. General Appearance: intubated and patient mechanically ventilated; Negative for in distress HEENT normocephalic, head/scalp atraumatic and moist oral mucous membranes Eyes PERRL and EOMs intact bilaterally Neck full ROM and no lymphadenopathy Chest inspection of chest normal Resp normal respiratory effort and no use of accessory muscles Effort and Inspection: able to speak in complete sentences Auscultation: clear to auscultation bilaterally; Negative for rales, rhonchi or wheezes Percussion: Negative for dullness Cardio S1 normal heart sound, S2 normal heart sound, no murmurs, no rub and no gallops Cardio Narrative: A. fib noted on monitor Rate: tachycardic GI GI Narrative: Colostomy is clean, dry and intact. No areas of duskiness noted. Some grimacing with palpation of the lower abdomen. no CVA tenderness Extremity General Extremity: edema; Negative for clubbing or cyanosis Skin Skin Narrative: Large incision noted. Some serosanguineous exudate noted. Neuro Neuro Narrative: Movement of right foot noted. Right upper extremity with sl ight drift. Significant improvement in speech. Psych Appearance: intubated Charges/Coding Visit Charges Inpatient E&M: 52824 Subs Hosp L2
[2021-03-22] MEDS: Aspirin 300 MG Suppository RC (10:05)
--- NOTE | 2021-03-22 10:30 | NURSING ---
ostomy appliance loose at the lateral side so appliance removed. stoma remains slightly edematous. stoma is moist and beefy red in color. sits slightly above the skin level. peristomal skin is intact. cleansed with warm water. pat dry. applied a new flat 2 piece [place] appliance with a small amount of stoma paste. pt tolerated well.
[2021-03-22 12:05] LABS: Bedside Glucose 143 mg/dL (70-110)
[2021-03-22] MEDS: 0.9% Normal Saline 1,000 ML 50 ML IV (14:23)
--- NOTE | 2021-03-22 14:41 | PCM.PN.HOSP ---
Subjective Subjective SOB. Did require Lasix. She not passing any flatus at this time. Objective Data Objective Data Vital Signs: Vital Signs Temp Pulse Resp BP Pulse Ox 37.2 C 87 26 H 160/72 H 97 03/22/21 14:00 03/22/21 14:00 03/22/21 14:00 03/22/21 14:00 03/22/21 14:00 Oxygen Flow Rate (L/min) 2 Oxygen Delivery Method Nasal Cannula Weight: 102 kg Body Mass Index (BMI) 36.6 Intake & Output: Intake and Output for Last 24 Hours 03/20/21 03/21/21 03/22/21 23:59 23:59 23:59 Intake Total 3444.52 / 3444.52 3828.72 / 3828.72 1066.67 / 1066.67 Output Total 1779 / 1979 1250 / 2515 3365 / 3365 Balance 1664.52 / 1464.52 2578.72 / 1313.72 -2298.33 / -2298.33 Medical Nutrition Assessment Dietitian: Nutrition Therapy Diagnosis Start: 03/18/21 09:59 Freq: Status: Active Protocol: Document 03/21/21 10:16 RMA (Rec: 03/21/21 10:16 RMA [id number]) Nutrition Malnutrition Evidence of Malnutrition Exists No Intake Problem Inadequate Oral Intake Etiology r/t GI dysfunction Signs/Symptoms as evidenced by no PO intake x 4 days Status Active Problem Clinical Problem Altered GI Function Etiology related to inflammation/ diverticulitis Signs/Symptoms as evidenced by need for sigmoid colectomy w/ end colostomy and continued NPO status Status Active Problem Recommendation Dietitian Recommendations/Changes 1.) Advance diet as tolerated and medically able to Transitional. 2.) If pt anticipated to remain NPO > 5 days w/ no plans to resume PO diet for >1 week, recommend consideration of TF if PO remains contraindicated or TPN if enteral nutrition and PO diet remain contraindicated-- consult RDN as indicated for order and management of nutrition support. 3.) Pt will need FULL CHARGE BOOKKEEPER evaluation prior to PO diet advancement--consistency of solids/liquids as per speech. Lab / Micro Data Result Diagrams: 03/22/21 05:38 03/22/21 05:38 Labs: Laboratory Results - last 24 hr 03/19/21 08:40: Crossmatch See Detail 03/21/21 16:35: APTT 27.3 03/21/21 18:05: POC Glucose 161 H 03/21/21 22:32: POC Glucose 164 H 03/22/21 05:38: WBC 12.7 H, RBC 3.12 L, Hgb 8.5 L, Hct 28.8 L, MCV 92.3, MCH 27.2, MCHC 29.5 L, RDW Std Deviation 51.0 H, RDW Coeff of Sean 15.1 H, Plt Count 286, MPV 9.1, Immature Gran % (Auto) 0.700, Neut % (Auto) 87.5 H, Lymph % (Auto) 6.2 L, [place] % (Auto) 5.1, Eos % (Auto) 0.4, Baso % (Auto) 0.1, Absolute Neuts (auto) 11.1 H, Absolute Lymphs (auto) 0.79 L, Nucleated RBC % 0 03/22/21 05:38: Sodium 144, Potassium 3.5, Chloride 112 H, Carbon Dioxide 22.0, Anion Gap 10, BUN 18, Creatinine 0.80, Estim Creat Clear Calc 63.72, Est GFR (MDRD) Af Amer 120, Est GFR (MDRD) Non-Af 99, BUN/Creatinine Ratio 22.4 H, Glucose 156 H, Calcium 8.8, Triglycerides 123, Cholesterol 94, LDL Cholesterol 52, VLDL Cholesterol 25, HDL Cholesterol 17 L 03/22/21 06:45: POC Glucose 152 H 03/22/21 11:58: POC Glucose 143 H Micro: Microbiology 03/19/21 10:50 Wound Drainage - Other Gram Stain - Final 03/19/21 10:50 Wound Drainage - Other Wound Culture - Preliminary Alpha Hemolytic Streptococcus Escherichia coli 03/19/21 10:50 Wound Drainage - Other Anaerobic Culture - Preliminary Checking for anaerobes, further studies to follow. 03/19/21 07:30 Stool Enteric Bacteriology - Final 03/19/21 07:30 Stool C. 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 Thrombosis or possibly occlusion of the left cavernous carotid and supraclinoid portion N.B. : The above Results were Read Back by Arcadio Landin MD to Diamond Nicholson RN, and understanding confirmed on 03/21/2021 17:03:26 (ET). Electronically Signed: Arcadio Landin MD at 16:54 EDT , Service support , Head MRA 03/21/21 08:42 IMPRESSION: Occlusion of the left petrous, cavernous and supraclinoid carotid. There is reconstitution of the anterior and middle cerebral arteries via collaterals. The anterior cerebral and middle cerebral arteries appear grossly patent although somewhat attenuated in perfusion on the reconstructed images in part due to motion artifact although appear patent on the source images due to reconstitution by collaterals.. Electronically Signed: Arcadio Landin MD at 17:04 EDT , Service support , Neck MRA 03/21/21 08:42 IMPRESSION: Atherosclerotic disease more severe on the left with occlusion of the left internal carotid just distal to the origin. Electronically Signed: Arcadio Landin MD at 17:07 EDT , Service support , Knee X-Ray 03/21/21 17:55 IMPRESSION: Uncomplicated right total knee arthroplasty. Electronically Signed: Joseph Barrett MD at 8:26 EDT Tel , Service support , Chest X-Ray 03/21/21 20:50 IMPRESSION: Bibasilar atelectasis or infiltrate slightly more pronounced on the left. Electronically Signed: Arcdaio Landin MD at 22:13 EDT , Service support , Physical Exam Const alert HEENT Head and Scalp: normocephalic Eyes PERRL Resp normal respiratory effort, no retractions, no use of accessory muscles and clear to auscultation bilaterally Cardio regular rate, regular rhythm, S1 normal heart sound and S2 normal heart sound GI normal to inspection, nondistended, normoactive bowel sounds, soft to palpation, non-tender and non-distended Extremity normal to inspection Assessment & Plan Assessment/Plan (1) Abdominal abscess: (2) Colitis: (3) Enteritis: (4) Carotid stenosis: QUALIFIERS: Laterality: right Qualified Code(s): I65.21 - Occlusion and stenosis of right carotid artery PLAN: 1. 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 Copious purulent material throughout. Cx GPO + GNR plan: continue pip/tazo, NPO, additional mgmt per surgery 2. acute respiratory failure maintained on ventilator after extensive surgery extubated 03/20 3. Acute LMCA CVA aphasia, right-sided neglect, started on heparin gtt for anticoagulation unknown last time normal prior to deficits noted not candidate for TPA given recent surgery therapy eval will need SNF/rehab upon discharge MRI showed acute ischemic infarct in the left MCA territory. Discussed with neurology: Heparin contraindicated for least 2 weeks post stroke. No revascularization necessary at this time. DW Dr. Kim on 03/21, ok for ASA. 4. Acute heart failure with preserved ejection fraction EF 55 to 60% with pulmonary systolic pressure 55 mmHg, consistent with moderate pulmonary hypertension. Intake and output put shows a fluid balance of 7915 mL though this may not be completely accurate Will Hep-Lock IV and give IV furosemide 40 mg twice daily. 5. carotid stenosis greater than 70% stenosis on right. Chronic left carotid occlusion. Similiar to 04/09/[address] Bhatia in past and not deemed a candidate in past for CEA 6. coagulopathy resolved with 2 doses of 5mg of vitamin K 7. afib warfarin held heparin gtt started 03/20 8. Hypertensive urgency stable amlodipine held 9. VTE prophylaxis: SCDs 10. CAD LHC in 11/2020 showing non-obstructive CAD ASA, clopidogrel currently held. Resume when ok with general surgery 11. mild noted on 2d echo from 11/21/2020 outpt follow up with cardiology 12. Suspected colon cancer 5 cm mass noted Pathology currently pending No lymph node biopsies were performed sore lymph node resections given the acute nature of the surgery Will need further follow-up as outpatient with oncology. Charges/Coding Visit Charges Inpatient E&M: 88002 Subs Hosp L3
[2021-03-22] MEDS: Furosemide 40 MG/4 ML Vial IV (18:10)
[2021-03-22] MEDS: 0.9% Saline Lock 10 ML Syringe IV ×2 (18:31→21:11)
[2021-03-22 18:46] LABS: Bedside Glucose 142 mg/dL (70-110)
[2021-03-22 23:40] LABS: Bedside Glucose 152 mg/dL (70-110)
[2021-03-23] VITALS (20 sets, daily range): BP systolic 136–172; BP diastolic 60–139; PULSE 83–100; RESP 16–32; TEMP 36.9–37.7; O2SAT 95–97
[2021-03-23 05:46] LABS: Bedside Glucose 147 mg/dL (70-110)
[2021-03-23 06:10] LABS: Absolute Lymphocyte Count 0.68 X10^3/uL (0.83-4.51); Absolute Neutrophil Count 10.3 X10^3/uL (2.0-7.7); Basophil# 0.02 X10^3/uL; Basophil% 0.2 % (0-1); Eosinophil# 0.11 X10^3/uL; Eosinophils% 0.9 % (0-5); Hematocrit 29.9 % (40-54); Hemoglobin 8.3 g/dL (13.0-16.5); Lymphocyte # 0.68 X10^3/ul (0.83-4.51); Lymphocyte % 5.7 % (19-41); Mean Corp Hgb Conc 27.8 g/dL (32-36); Mean Corpuscular Hgb 27.6 pg (27.0-32.0); Mean Corpuscular Volume 99.3 fL (80-94); Mean Platelet Vol. 9.7 fl (6.2-12.0); Monocyte# 0.68 X10^3/uL; Monocyte% 5.7 % (0-10); NRBC Flagged by Analyzer 0 % (0-5); Neutrophil # 10.26 X10^3/uL (2.7-7.7); Neutrophil % 86.7 % (47-70); Platelet Count 256 K/mm3 (150-450); RBC Distribution Width CV 15.2 % (11.6-14.6); RBC Distribution Width SD 55.2 fl (35.1-43.9); Red Blood Count 3.01 M/mm3 (4.6-6.2); White Blood Count 11.9 K/mm3 (4.4-11.0)
[2021-03-23 06:53] LABS: Anion Gap 9 (5-15); BUN 17 mg/dL (7-18); BUN/Creat Ratio 25.1 RATIO (10-20); Calcium,Total 8.4 mg/dL (8.5-10.1); Chloride 112 mmol/L (98-107); Creatinine, Serum 0.68 mg/dL (0.70-1.30); EST Glomerular Filtration Rate 120 mL/min (>60); Est Glom Filt Rate - Afr Amer 146 mL/min (>60); Estimated Creatinine Clearance 50.98 ml/min; Glucose 146 mg/dL (74-106); Potassium 3.3 mmol/L (3.5-5.1); Sodium Level 144 mmol/L (136-145)
[2021-03-23] MEDS: Ipratropium/Albuterol Sulfate 3 ML AMPUL.NEB INHALATION ×4 (07:21→19:30)
--- NOTE | 2021-03-23 09:39 | NURSING ---
called she found his wallet
[2021-03-23] MEDS: Furosemide 40 MG/4 ML Vial IV (10:35)
[2021-03-23] MEDS: Insulin Lispro 100 UNIT/ML INSULN.PEN SC (11:33)
[2021-03-23] MEDS: Aspirin 300 MG Suppository RC (11:33)
[2021-03-23 11:51] LABS: Bedside Glucose 161 mg/dL (70-110)
--- NOTE | 2021-03-23 12:15 | PCM.PN.HOSP ---
Subjective Subjective Breathing well, taken off oxygen. No flatus. Hungry Objective Data Objective Data Vital Signs: Vital Signs Temp Pulse Resp BP Pulse Ox 37.4 C H 94 16 155/84 H 97 03/23/21 10:00 03/23/21 11:31 03/23/21 11:31 03/23/21 10:00 03/23/21 10:00 Oxygen Flow Rate (L/min) 2 Oxygen Delivery Method Room Air Weight: 98.1 kg Body Mass Index (BMI) 36.6 Intake & Output: Intake and Output for Last 24 Hours 03/21/21 03/22/21 03/23/21 23:59 23:59 23:59 Intake Total 3828.72 / 3828.72 2226.67 / 2226.67 210 / 210 Output Total 1250 / 2515 4225 / 4225 Balance 2578.72 / 1313.72 - / 210 / 210 Medical Nutrition Assessment Dietitian: Nutrition Therapy Diagnosis Start: 03/18/21 09:59 Freq: Status: Active Protocol: Document 03/21/21 10:16 RMA (Rec: 03/21/21 10:16 RMA [id number]) Nutrition Malnutrition Evidence of Malnutrition Exists No Intake Problem Inadequate Oral Intake Etiology r/t GI dysfunction Signs/Symptoms as evidenced by no PO intake x 4 days Status Active Problem Clinical Problem Altered GI Function Etiology related to inflammation/ diverticulitis Signs/Symptoms as evidenced by need for sigmoid colectomy w/ end colostomy and continued NPO status Status Active Problem Recommendation Dietitian Recommendations/Changes 1.) Advance diet as tolerated and medically able to Transitional. 2.) If pt anticipated to remain NPO > 5 days w/ no plans to resume PO diet for >1 week, recommend consideration of TF if PO remains contraindicated or TPN if enteral nutrition and PO diet remain contraindicated-- consult RDN as indicated for order and management of nutrition support. 3.) Pt will need AUTOMATIC BEAM WARPER TENDER evaluation prior to PO diet advancement--consistency of solids/liquids as per speech. Lab / Micro Data Result Diagrams: 03/23/21 05:54 03/23/21 05:54 Labs: Laboratory Results - last 24 hr 03/22/21 18:07: POC Glucose 142 H 03/22/21 23:35: POC Glucose 152 H 03/23/21 05:18: POC Glucose 147 H 03/23/21 05:54: WBC 11.9 H, RBC 3.01 L, Hgb 8.3 L, Hct 29.9 L, MCV 99.3 H D, MCH 27.6, MCHC 27.8 L D, RDW Std Deviation 55.2 H, RDW Coeff of Sean 15.2 H, Plt Count 256, MPV 9.7, Immature Gran % (Auto) 0.800, Neut % (Auto) 86.7 H, Lymph % (Auto) 5.7 L, [place] % (Auto) 5.7, Eos % (Auto) 0.9, Baso % (Auto) 0.2, Absolute Neuts (auto) 10.3 H, Absolute Lymphs (auto) 0.68 L, Nucleated RBC % 0 03/23/21 05:54: Sodium 144, Potassium 3.3 L, Chloride 112 H, Carbon Dioxide 23.0, Anion Gap 9, BUN 17, Creatinine 0.68 L, Estim Creat Clear Calc 50.98, Est GFR (MDRD) Af Amer 146, Est GFR (MDRD) Non-Af 120, BUN/Creatinine Ratio 25.1 H, Glucose 146 H, Calcium 8.4 L 03/23/21 11:29: POC Glucose 161 H Micro: Microbiology 03/19/21 10:50 Wound Drainage - Other Gram Stain - Final 03/19/21 10:50 Wound Drainage - Other Wound Culture - Final Strep anginosus Escherichia coli 03/19/21 10:50 Wound Drainage - Other Anaerobic Culture - Preliminary Checking for anaerobes, further studies to follow. 03/19/21 07:30 Stool Enteric Bacteriology - Final 03/19/21 07:30 Stool C. difficile DNA Amplification - Final 03/18/21 02:34 Mucosa - Nasopharyngeal SARS-CoV-2 Antigen (Rapid) - Final Physical Exam HEENT Head and Scalp: normocephalic Resp normal respiratory effort, no use of accessory muscles and clear to auscultation bilaterally Cardio regular rate, regular rhythm, S1 normal heart sound and S2 normal heart sound GI GI Narrative: soft. ND. hypactive BS Extremity normal to inspection Psych affect normal Assessment & Plan Assessment/Plan (1) Abdominal abscess: (2) Colitis: (3) Enteritis: (4) Carotid stenosis: QUALIFIERS: Laterality: right Qualified Code(s): I65.21 - Occlusion and stenosis of right carotid artery PLAN: 1. 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 Copious purulent material throughout. Cx GPO + GNR plan: continue pip/tazo, NPO, additional mgmt per surgery 2. acute respiratory failure maintained on ventilator after extensive surgery extubated 03/20 3. Acute LMCA CVA aphasia, right-sided neglect, started on heparin gtt for anticoagulation unknown last time normal prior to deficits noted not candidate for TPA given recent surgery therapy eval will need SNF/rehab upon discharge MRI showed acute ischemic infarct in the left MCA territory. Discussed with neurology: Heparin contraindicated for least 2 weeks post stroke. No revascularization necessary at this time. DW Dr. Kim on 03/21, ok for ASA. 4. Acute heart failure with preserved ejection fraction EF 55 to 60% with pulmonary systolic pressure 55 mmHg, consistent with moderate pulmonary hypertension. Intake and output put shows a fluid balance of 7915 mL though this may not be completely accurate 03/22: lasix HLIV 03/23: now on room air. DC furosemide. 5. carotid stenosis greater than 70% stenosis on right. Chronic left carotid occlusion. Similiar to 04/09/[address] Bhatia in past and not deemed a candidate in past for CEA 6. coagulopathy resolved with 2 doses of 5mg of vitamin K 7. afib warfarin held heparin gtt started 03/20 8. Hypertensive urgency stable amlodipine held 9. VTE prophylaxis: SCDs 10. CAD LHC in 11/2020 showing non-obstructive CAD ASA, clopidogrel currently held. Resume when ok with general surgery 11. mild noted on 2d echo from 11/21/2020 outpt follow up with cardiology 12. Suspected colon cancer 5 cm mass noted No lymph node biopsies were performed sore lymph node resections given the acute nature of the surgery Will need further follow-up as outpatient with oncology. Charges/Coding Visit Charges Inpatient E&M: 88585 Subs Hosp L2
--- NOTE | 2021-03-23 14:38 | PCM.PN.SRG ---
Subjective Subjective PaTiEnT ApPeArS To bE DoInG WeLl< He nOtEs mInImAl aBdOmInAl pAiN At tHiS PoInT In tImE (ThErE Is a pRoBlEm wItH ThE SoFtWaRe aNd I CaNnOt cOrReCt tHiS TyPiNg) Objective Data Objective Data Vital Signs: Vital Signs Temp Pulse Resp BP Pulse Ox 98.8 F 83 18 155/77 H 96 03/23/21 13:46 03/23/21 14:20 03/23/21 13:46 03/23/21 13:46 03/23/21 13:46 Oxygen Flow Rate (L/min) 2 Oxygen Delivery Method Room Air Weight: 98.1 kg Body Mass Index (BMI) 36.6 Intake & Output: Intake and Output for Last 24 Hours 03/21/21 03/22/21 03/23/21 23:59 23:59 23:59 Intake Total 3828.72 / 3828.72 2226.67 / 2226.67 210 / 210 Output Total 1250 / 2515 4225 / 4225 Balance 2578.72 / 1313.72 -1997.33 / -1997.33 210 / 210 Medical Nutrition Assessment Dietitian: Nutrition Therapy Diagnosis Start: 03/18/21 09:59 Freq: Status: Active Protocol: Document 03/21/21 10:16 RMA (Rec: 03/21/21 10:16 RMA [id number]) Nutrition Malnutrition Evidence of Malnutrition Exists No Intake Problem Inadequate Oral Intake Etiology r/t GI dysfunction Signs/Symptoms as evidenced by no PO intake x 4 days Status Active Problem Clinical Problem Altered GI Function Etiology related to inflammation/ diverticulitis Signs/Symptoms as evidenced by need for sigmoid colectomy w/ end colostomy and continued NPO status Status Active Problem Recommendation Dietitian Recommendations/Changes 1.) Advance diet as tolerated and medically able to Transitional. 2.) If pt anticipated to remain NPO > 5 days w/ no plans to resume PO diet for >1 week, recommend consideration of TF if PO remains contraindicated or TPN if enteral nutrition and PO diet remain contraindicated-- consult RDN as indicated for order and management of nutrition support. 3.) Pt will need PRACTICING MD ANESTHESIOLOGIST evaluation prior to PO diet advancement--consistency of solids/liquids as per speech. Lab / Micro Data Result Diagrams: 03/23/21 05:54 03/23/21 05:54 Labs: Laboratory Results - last 24 hr 03/22/21 18:07: POC Glucose 142 H 03/22/21 23:35: POC Glucose 152 H 03/23/21 05:18: POC Glucose 147 H 03/23/21 05:54: WBC 11.9 H, RBC 3.01 L, Hgb 8.3 L, Hct 29.9 L, MCV 99.3 H D, MCH 27.6, MCHC 27.8 L D, RDW Std Deviation 55.2 H, RDW Coeff of Sean 15.2 H, Plt Count 256, MPV 9.7, Immature Gran % (Auto) 0.800, Neut % (Auto) 86.7 H, Lymph % (Auto) 5.7 L, [place] % (Auto) 5.7, Eos % (Auto) 0.9, Baso % (Auto) 0.2, Absolute Neuts (auto) 10.3 H, Absolute Lymphs (auto) 0.68 L, Nucleated RBC % 0 03/23/21 05:54: Sodium 144, Potassium 3.3 L, Chloride 112 H, Carbon Dioxide 23.0, Anion Gap 9, BUN 17, Creatinine 0.68 L, Estim Creat Clear Calc 50.98, Est GFR (MDRD) Af Amer 146, Est GFR (MDRD) Non-Af 120, BUN/Creatinine Ratio 25.1 H, Glucose 146 H, Calcium 8.4 L 03/23/21 11:29: POC Glucose 161 H Micro: Microbiology 03/19/21 10:50 Wound Drainage - Other Gram Stain - Final 03/19/21 10:50 Wound Drainage - Other Wound Culture - Final Strep anginosus Escherichia coli 03/19/21 10:50 Wound Drainage - Other Anaerobic Culture - Preliminary Checking for anaerobes, further studies to follow. 03/19/21 07:30 Stool Enteric Bacteriology - Final 03/19/21 07:30 Stool C. difficile DNA Amplification - Final 03/18/21 02:34 Mucosa - Nasopharyngeal SARS-CoV-2 Antigen (Rapid) - Final Physical Exam Narrative AbDoMeN Is sOfT AnD BeNiGn dReSsInGs iNtAcT oStOmY ApPeArS PiNk aNd eDeMaToUs (tHeRe iS A PrObLeM WiTh tHe sOfTwArE ThAt wOnt aLlOw mE To cOrReCt tHiS TyPiNg) Const alert General Appearance: cooperative and comfortable
[2021-03-23 18:05] LABS: Bedside Glucose 148 mg/dL (70-110)
[2021-03-23] MEDS: hydrALAZINE 20 MG/ML Vial 10 MG IV (18:10)
[2021-03-23] MEDS: 0.9% Saline Lock 10 ML Syringe IV (18:10)
[2021-03-24] VITALS (15 sets, daily range): BP systolic 141–168; BP diastolic 64–87; PULSE 78–96; RESP 16–25; TEMP 37–37.7; O2SAT 93–96
[2021-03-24] MEDS: Insulin Lispro 100 UNIT/ML INSULN.PEN SC ×5 (00:02→23:17)
[2021-03-24 00:06] LABS: Bedside Glucose 152 mg/dL (70-110)
[2021-03-24 05:31] LABS: Bedside Glucose 158 mg/dL (70-110)
--- NOTE | 2021-03-24 05:41 | PCM.PN.SRG ---
Subjective Subjective Patient seems content - smiling denies abdominal pain Objective Data Objective Data Vital Signs: Vital Signs Temp Pulse Resp BP Pulse Ox 98.7 F 92 22 H 152/87 H 96 03/24/21 03:24 03/24/21 03:24 03/24/21 03:24 03/24/21 03:24 03/24/21 03:24 Oxygen Flow Rate (L/min) 2 Oxygen Delivery Method Room Air Weight: 98.1 kg Body Mass Index (BMI) 36.6 Intake & Output: Intake and Output for Last 24 Hours 03/22/21 03/23/21 03/24/21 23:59 23:59 23:59 Intake Total 2226.67 / 2226.67 370 / 370 50 / 50 Output Total 4225 / 4225 Balance - / - 370 / 370 50 / 50 Medical Nutrition Assessment Dietitian: Nutrition Therapy Diagnosis Start: 03/18/21 09:59 Freq: Status: Active Protocol: Document 03/21/21 10:16 RMA (Rec: 03/21/21 10:16 RMA [id number]) Nutrition Malnutrition Evidence of Malnutrition Exists No Intake Problem Inadequate Oral Intake Etiology r/t GI dysfunction Signs/Symptoms as evidenced by no PO intake x 4 days Status Active Problem Clinical Problem Altered GI Function Etiology related to inflammation/ diverticulitis Signs/Symptoms as evidenced by need for sigmoid colectomy w/ end colostomy and continued NPO status Status Active Problem Recommendation Dietitian Recommendations/Changes 1.) Advance diet as tolerated and medically able to Transitional. 2.) If pt anticipated to remain NPO > 5 days w/ no plans to resume PO diet for >1 week, recommend consideration of TF if PO remains contraindicated or TPN if enteral nutrition and PO diet remain contraindicated-- consult RDN as indicated for order and management of nutrition support. 3.) Pt will need FRENCH FOLDING MACHINE OPERATOR evaluation prior to PO diet advancement--consistency of solids/liquids as per speech. Lab / Micro Data Result Diagrams: 03/23/21 05:54 03/23/21 05:54 Labs: Laboratory Results - last 24 hr 03/23/21 05:18: POC Glucose 147 H 03/23/21 05:54: WBC 11.9 H, RBC 3.01 L, Hgb 8.3 L, Hct 29.9 L, MCV 99.3 H D, MCH 27.6, MCHC 27.8 L D, RDW Std Deviation 55.2 H, RDW Coeff of Sean 15.2 H, Plt Count 256, MPV 9.7, Immature Gran % (Auto) 0.800, Neut % (Auto) 86.7 H, Lymph % (Auto) 5.7 L, [place] % (Auto) 5.7, Eos % (Auto) 0.9, Baso % (Auto) 0.2, Absolute Neuts (auto) 10.3 H, Absolute Lymphs (auto) 0.68 L, Nucleated RBC % 0 03/23/21 05:54: Sodium 144, Potassium 3.3 L, Chloride 112 H, Carbon Dioxide 23.0, Anion Gap 9, BUN 17, Creatinine 0.68 L, Estim Creat Clear Calc 50.98, Est GFR (MDRD) Af Amer 146, Est GFR (MDRD) Non-Af 120, BUN/Creatinine Ratio 25.1 H, Glucose 146 H, Calcium 8.4 L 03/23/21 11:29: POC Glucose 161 H 03/23/21 17:59: POC Glucose 148 H 03/24/21 00:00: POC Glucose 152 H 03/24/21 05:19: POC Glucose 158 H Micro: Microbiology 03/19/21 10:50 Wound Drainage - Other Gram Stain - Final 03/19/21 10:50 Wound Drainage - Other Wound Culture - Final Strep anginosus Escherichia coli 03/19/21 10:50 Wound Drainage - Other Anaerobic Culture - Preliminary Checking for anaerobes, further studies to follow. 03/19/21 07:30 Stool Enteric Bacteriology - Final 03/19/21 07:30 Stool C. difficile DNA Amplification - Final 03/18/21 02:34 Mucosa - Nasopharyngeal SARS-CoV-2 Antigen (Rapid) - Final Physical Exam Narrative abdomen is soft and benign wound with some drainage inferiorly - brown/clear stoma site with small stool, gas in bag
[2021-03-24 06:40] LABS: Absolute Lymphocyte Count 0.89 X10^3/uL (0.83-4.51); Absolute Neutrophil Count 8.7 X10^3/uL (2.0-7.7); Basophil# 0.02 X10^3/uL; Basophil% 0.2 % (0-1); Eosinophil# 0.09 X10^3/uL; Eosinophils% 0.9 % (0-5); Hematocrit 29.7 % (40-54); Hemoglobin 9.5 g/dL (13.0-16.5); Lymphocyte # 0.89 X10^3/ul (0.83-4.51); Lymphocyte % 8.6 % (19-41); Mean Corpuscular Hgb 30.6 pg (27.0-32.0); Mean Corpuscular Volume 95.8 fL (80-94); Mean Platelet Vol. 9.7 fl (6.2-12.0); Monocyte# 0.61 X10^3/uL; Monocyte% 5.9 % (0-10); NRBC Flagged by Analyzer 0 % (0-5); Neutrophil % 83.5 % (47-70); Platelet Count 261 K/mm3 (150-450); RBC Distribution Width CV 14.6 % (11.6-14.6); RBC Distribution Width SD 49.3 fl (35.1-43.9); White Blood Count 10.4 K/mm3 (4.4-11.0)
[2021-03-24] MEDS: Ipratropium/Albuterol Sulfate 3 ML AMPUL.NEB INHALATION ×4 (06:59→20:18)
[2021-03-24 07:13] LABS: Anion Gap 9 (5-15); BUN 19 mg/dL (7-18); BUN/Creat Ratio 32.3 RATIO (10-20); Calcium,Total 8.1 mg/dL (8.5-10.1); Chloride 110 mmol/L (98-107); Creatinine, Serum 0.59 mg/dL (0.70-1.30); EST Glomerular Filtration Rate 141 mL/min (>60); Est Glom Filt Rate - Afr Amer 171 mL/min (>60); Estimated Creatinine Clearance 50.98 ml/min; Glucose 150 mg/dL (74-106); Potassium 3.1 mmol/L (3.5-5.1); Sodium Level 141 mmol/L (136-145)
[2021-03-24] MEDS: Aspirin 300 MG Suppository RC (11:56)
[2021-03-24 12:26] LABS: Bedside Glucose 202 mg/dL (70-110)
--- NOTE | 2021-03-24 14:38 | PCM.PN.HOSP ---
Subjective Subjective Feeling well. Has been advanced to clears. Objective Data Objective Data Vital Signs: Vital Signs Temp Pulse Resp BP Pulse Ox 37.4 C H 85 16 141/64 H 95 03/24/21 10:50 03/24/21 12:55 03/24/21 11:01 03/24/21 10:50 03/24/21 10:50 Oxygen Flow Rate (L/min) 96 Oxygen Delivery Method Room Air Weight: 93.4 kg Body Mass Index (BMI) 36.6 Intake & Output: Intake and Output for Last 24 Hours 03/22/21 03/23/21 03/24/21 23:59 23:59 23:59 Intake Total 2226.67 / 2226.67 370 / 370 660 / 660 Output Total 4225 / 4225 Balance -1997. / 370 / 370 660 / 660 Medical Nutrition Assessment Dietitian: Nutrition Therapy Diagnosis Start: 03/18/21 09:59 Freq: Status: Active Protocol: Document 03/21/21 10:16 RMA (Rec: 03/21/21 10:16 RMA [id number]) Nutrition Malnutrition Evidence of Malnutrition Exists No Intake Problem Inadequate Oral Intake Etiology r/t GI dysfunction Signs/Symptoms as evidenced by no PO intake x 4 days Status Active Problem Clinical Problem Altered GI Function Etiology related to inflammation/ diverticulitis Signs/Symptoms as evidenced by need for sigmoid colectomy w/ end colostomy and continued NPO status Status Active Problem Recommendation Dietitian Recommendations/Changes 1.) Advance diet as tolerated and medically able to Transitional. 2.) If pt anticipated to remain NPO > 5 days w/ no plans to resume PO diet for >1 week, recommend consideration of TF if PO remains contraindicated or TPN if enteral nutrition and PO diet remain contraindicated-- consult RDN as indicated for order and management of nutrition support. 3.) Pt will need INTELLIGENCE CHIEF evaluation prior to PO diet advancement--consistency of solids/liquids as per speech. Lab / Micro Data Result Diagrams: 03/24/21 06:04 03/24/21 06:04 Labs: Laboratory Results - last 24 hr 03/23/21 17:59: POC Glucose 148 H 03/24/21 00:00: POC Glucose 152 H 03/24/21 05:19: POC Glucose 158 H 03/24/21 06:04: WBC 10.4, RBC 3.10 L, Hgb 9.5 L, Hct 29.7 L, MCV 95.8 H, MCH 30.6, MCHC 32.0 D, RDW Std Deviation 49.3 H, RDW Coeff of Sean 14.6, Plt Count 261, MPV 9.7, Immature Gran % (Auto) 0.900, Neut % (Auto) 83.5 H, Lymph % (Auto) 8.6 L, [place] % (Auto) 5.9, Eos % (Auto) 0.9, Baso % (Auto) 0.2, Absolute Neuts (auto) 8.7 H, Absolute Lymphs (auto) 0.89, Nucleated RBC % 0 03/24/21 06:04: Sodium 141, Potassium 3.1 L, Chloride 110 H, Carbon Dioxide 22.0, Anion Gap 9, BUN 19 H, Creatinine 0.59 L, Estim Creat Clear Calc 50.98, Est GFR (MDRD) Af Amer 171, Est GFR (MDRD) Non-Af 141, BUN/Creatinine Ratio 32.3 H, Glucose 150 H, Calcium 8.1 L 03/24/21 11:15: POC Glucose 202 H Micro: Microbiology 03/19/21 10:50 Wound Drainage - Other Gram Stain - Final 03/19/21 10:50 Wound Drainage - Other Wound Culture - Final Strep anginosus Escherichia coli 03/19/21 10:50 Wound Drainage - Other Anaerobic Culture - Preliminary Checking for anaerobes, further studies to follow. 03/19/21 07:30 Stool Enteric Bacteriology - Final 03/19/21 07:30 Stool C. difficile DNA Amplification - Final 03/18/21 02:34 Mucosa - Nasopharyngeal SARS-CoV-2 Antigen (Rapid) - Final Physical Exam Const alert Constitutional Narrative: Speech impediment Resp normal respiratory effort, no retractions, no use of accessory muscles and clear to auscultation bilaterally Cardio regular rate, regular rhythm, S1 normal heart sound and S2 normal heart sound GI non-tender and non-distended GI Narrative: Hypoactive bowel sounds Extremity normal to inspection Neuro moves all extremities and no focal motor deficits Neuro Narrative: [place] 5-5 in upper and lower extremities bilaterally. Sensorium / Orientation: awake and alert Assessment & Plan Assessment/Plan (1) Abdominal abscess: (2) Colitis: (3) Enteritis: (4) Carotid stenosis: QUALIFIERS: Laterality: right Qualified Code(s): I65.21 - Occlusion and stenosis of right carotid artery PLAN: 1. 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 Copious purulent material throughout. Cx strep angionsus and E. coli plan: change abx to amp/sulbactam. diet advanced to clears per surgery 2. acute respiratory failure resolved maintained on ventilator after extensive surgery extubated 03/20 3. Acute LMCA CVA aphasia, right-sided neglect, started on heparin gtt for anticoagulation unknown last time normal prior to deficits noted not candidate for TPA given recent surgery therapy eval will need SNF/rehab upon discharge MRI showed acute ischemic infarct in the left MCA territory. Discussed with neurology: Heparin contraindicated for least 2 weeks post stroke (03/20/2021-04/03/2021). No revascularization necessary at this time. DW Dr. Kim on 03/21, ok for ASA. 4. Acute heart failure with preserved ejection fraction EF 55 to 60% with pulmonary systolic pressure 55 mmHg, consistent with moderate pulmonary hypertension. Intake and output put shows a fluid balance of 7915 mL though this may not be completely accurate 03/22: lasix HLIV 03/23: now on room air. DC furosemide. 5. carotid stenosis greater than 70% stenosis on right. Chronic left carotid occlusion. Similiar to 04/09/[address] Bhatia in past and not deemed a candidate in past for CEA 6. coagulopathy resolved with 2 doses of 5mg of vitamin K 7. afib warfarin held heparin gtt started 03/20 8. Hypertensive urgency stable amlodipine held 9. VTE prophylaxis: SCDs 10. CAD LHC in 11/2020 showing non-obstructive CAD ASA, clopidogrel currently held. Resume when ok with general surgery 11. mild noted on 2d echo from 11/21/2020 outpt follow up with cardiology 12. Suspected colon cancer 5 cm mass noted No lymph node biopsies were performed sore lymph node resections given the acute nature of the surgery Will need further follow-up as outpatient with oncology. 13. Discharge planning: To acute rehab when medically stable. Charges/Coding Visit Charges Inpatient E&M: 93761 Subs Hosp L3
[2021-03-24] MEDS: Potassium Chloride Oral Tablet 20 MEQ 40 MEQ PO (15:26)
[2021-03-24] MEDS: Acetaminophen 325 MG Tablet 650 MG PO (16:08)
[2021-03-24 18:56] LABS: Bedside Glucose 205 mg/dL (70-110)
[2021-03-24] MEDS: hydrALAZINE 20 MG/ML Vial 10 MG IV (21:50)
[2021-03-24 23:26] LABS: Bedside Glucose 156 mg/dL (70-110)
[2021-03-25] VITALS (13 sets, daily range): BP systolic 148–172; BP diastolic 61–83; PULSE 78–96; RESP 16–24; TEMP 36.6–37; O2SAT 93–96
[2021-03-25] MEDS: hydrALAZINE 20 MG/ML Vial 10 MG IV (03:46)
[2021-03-25] MEDS: Insulin Lispro 100 UNIT/ML INSULN.PEN SC ×4 (05:40→21:30)
[2021-03-25 05:55] LABS: Bedside Glucose 160 mg/dL (70-110)
[2021-03-25 06:46] LABS: Absolute Lymphocyte Count 1.02 X10^3/uL (0.83-4.51); Absolute Neutrophil Count 12.4 X10^3/uL (2.0-7.7); Basophil# 0.02 X10^3/uL; Basophil% 0.1 % (0-1); Eosinophil# 0.12 X10^3/uL; Eosinophils% 0.8 % (0-5); Hematocrit 29.2 % (40-54); Hemoglobin 8.8 g/dL (13.0-16.5); Lymphocyte # 1.02 X10^3/ul (0.83-4.51); Mean Corp Hgb Conc 30.1 g/dL (32-36); Mean Corpuscular Hgb 27.2 pg (27.0-32.0); Mean Corpuscular Volume 90.4 fL (80-94); Mean Platelet Vol. 10.2 fl (6.2-12.0); Monocyte# 0.82 X10^3/uL; Monocyte% 5.7 % (0-10); NRBC Flagged by Analyzer 0 % (0-5); Neutrophil # 12.37 X10^3/uL (2.7-7.7); Neutrophil % 85.6 % (47-70); Platelet Count 323 K/mm3 (150-450); RBC Distribution Width CV 14.8 % (11.6-14.6); Red Blood Count 3.23 M/mm3 (4.6-6.2); White Blood Count 14.5 K/mm3 (4.4-11.0)
[2021-03-25] MEDS: Ipratropium/Albuterol Sulfate 3 ML AMPUL.NEB INHALATION ×4 (07:03→19:40)
[2021-03-25 07:12] LABS: Anion Gap 9 (5-15); BUN 14 mg/dL (7-18); BUN/Creat Ratio 21.7 RATIO (10-20); Calcium,Total 8.4 mg/dL (8.5-10.1); Chloride 108 mmol/L (98-107); Creatinine, Serum 0.65 mg/dL (0.70-1.30); EST Glomerular Filtration Rate 127 mL/min (>60); Est Glom Filt Rate - Afr Amer 154 mL/min (>60); Estimated Creatinine Clearance 50.98 ml/min; Glucose 154 mg/dL (74-106); Potassium 2.9 mmol/L (3.5-5.1); Sodium Level 143 mmol/L (136-145)
--- NOTE | 2021-03-25 07:59 | PN.SURG_ITS ---
Subjective Subjective Patient patient reports he is feeling stronger and he is speaking normally Objective Data Objective Data Vital Signs: Vital Signs Temp Pulse Resp BP Pulse Ox 98.6 F 96 20 H 172/61 H 96 03/25/21 03:40 03/25/21 07:52 03/25/21 07:03 03/25/21 03:46 03/25/21 07:03 Oxygen Flow Rate (L/min) 96 Oxygen Delivery Method Room Air Weight: 207 lb 14.334 oz Body Mass Index (BMI) 36.6 Intake & Output: Intake and Output for Last 24 Hours 03/23/21 03/24/21 03/25/21 23:59 23:59 23:59 Intake Total 370 / 370 1702 / 1702 524 / 524 Output Total 300 / 300 250 / 250 Balance 370 / 370 1402 / 1402 274 / 274 Medical Nutrition Assessment Dietitian: Nutrition Therapy Diagnosis Start: 03/18/21 09:59 Freq: Status: Active Protocol: Document 03/21/21 10:16 RMA (Rec: 03/21/21 10:16 RMA [id number]) Nutrition Malnutrition Evidence of Malnutrition Exists No Intake Problem Inadequate Oral Intake Etiology r/t GI dysfunction Signs/Symptoms as evidenced by no PO intake x 4 days Status Active Problem Clinical Problem Altered GI Function Etiology related to inflammation/ diverticulitis Signs/Symptoms as evidenced by need for sigmoid colectomy w/ end colostomy and continued NPO status Status Active Problem Recommendation Dietitian Recommendations/Changes 1.) Advance diet as tolerated and medically able to Transitional. 2.) If pt anticipated to remain NPO > 5 days w/ no plans to resume PO diet for >1 week, recommend consideration of TF if PO remains contraindicated or TPN if enteral nutrition and PO diet remain contraindicated-- consult RDN as indicated for order and management of nutrition support. 3.) Pt will need TECHNICAL COMMUNICATOR evaluation prior to PO diet advancement--consistency of solids/liquids as per speech. Lab / Micro Data Result Diagrams: 03/25/21 06:22 03/25/21 06:22 Labs: Laboratory Results - last 24 hr 03/24/21 11:15: POC Glucose 202 H 03/24/21 17:52: POC Glucose 205 H 03/24/21 23:16: POC Glucose 156 H 03/25/21 05:38: POC Glucose 160 H 03/25/21 06:22: WBC 14.5 H, RBC 3.23 L, Hgb 8.8 L, Hct 29.2 L, MCV 90.4 D, MCH 27.2, MCHC 30.1 L D, RDW Std Deviation 49.0 H, RDW Coeff of Sean 14.8 H, Plt Count 323, MPV 10.2, Immature Gran % (Auto) 0.800, Neut % (Auto) 85.6 H, Lymph % (Auto) 7.0 L, [place] % (Auto) 5.7, Eos % (Auto) 0.8, Baso % (Auto) 0.1, Absolute Neuts (auto) 12.4 H, Absolute Lymphs (auto) 1.02, Nucleated RBC % 0 03/25/21 06:22: Sodium 143, Potassium 2.9 L, Chloride 108 H, Carbon Dioxide 26.0, Anion Gap 9, BUN 14, Creatinine 0.65 L, Estim Creat Clear Calc 50.98, Est GFR (MDRD) Af Amer 154, Est GFR (MDRD) Non-Af 127, BUN/Creatinine Ratio 21.7 H, Glucose 154 H, Calcium 8.4 L Micro: Microbiology 03/19/21 10:50 Wound Drainage - Other Gram Stain - Final 03/19/21 10:50 Wound Drainage - Other Wound Culture - Final Strep anginosus Escherichia coli 03/19/21 10:50 Wound Drainage - Other Anaerobic Culture - Preliminary Checking for anaerobes, further studies to follow. 03/19/21 07:30 Stool Enteric Bacteriology - Final 03/19/21 07:30 Stool C. difficile DNA Amplification - Final 03/18/21 02:34 Mucosa - Nasopharyngeal SARS-CoV-2 Antigen (Rapid) - Final Physical Exam Const oriented x3 and no apparent distress Resp normal respiratory effort Cardio regular rate GI soft to palpation GI Narrative: Copious incisional drainage Assessment & Plan Assessment/Plan (1) Perforation of sigmoid colon due to diverticulitis: PLAN: The patient had copious purulent drainage from his incision. All the reinier are removed and the incision was irrigated. The fascia is intact. The wound was packed with saline soaked Kerlix and I instructed the nurses to change this 3 times a day. I changed him back to Zosyn from Unasyn. He is also hypokalemic and I replace his potassium and check magnesium. Continue only clear liquids in case the patient has to return to surgery if his fascia dehisc ence. I was called by pathology at the end of last week and told that there was a 5 cm mass in the sigmoid colon causing the perforation. Final pathology report is still pending. Willy Cervantes MD Pager: [facility] [address] [place] [address], [address] [place] [address] Office:
[2021-03-25 08:21] LABS: Magnesium 1.2 mg/dL (1.6-2.6)
--- NOTE | 2021-03-25 09:27 | NURSING ---
Removed ostomy appliance. there was old drainage noted on the flange with some leakage noted laterally. small amount of formed stool noted on the appliance. stoma is less edematous today. remains dark pink and moist. peristomal skin is intact. stoma sits slightly above skin level. cleansed peristomal skin with warm water. pat dry. applied a new 2 piece flat [place] appliance with an [employer] ring and a small dab of stoma paste. pt tolerated well. see stoma photo.
[2021-03-25] MEDS: Magnesium Sulfate 4gm/100mL 4 GM/100 ML IV.SOLN. IV (09:28)
[2021-03-25] MEDS: Potassium Chloride 10mEq/100mL 10 MEQ/100 ML IV.SOLN. 100 MEQ IV BOLUS ×4 (09:28→14:47)
[2021-03-25] MEDS: Pantoprazole Sodium 40 MG Tablet PO (09:45)
[2021-03-25] MEDS: Lisinopril 20 MG Tablet PO (09:45)
[2021-03-25] MEDS: Aspirin E.C. 81 MG Tablet PO (09:45)
--- NOTE | 2021-03-25 09:57 | NURSING ---
wound photo: abdomen
--- NOTE | 2021-03-25 09:58 | NURSING ---
stoma photo: left abdomen
[2021-03-25 11:55] LABS: Bedside Glucose 199 mg/dL (70-110)
--- NOTE | 2021-03-25 12:03 | PCM.PN.HOSP ---
Documented by User: Ryan MAY 03/25/21 12:31 Subjective Subjective Patient is a 80-year-old male comfortably resting in a chair, alert and oriented x3. Patient is currently reporting no abdominal pain or cramping, and reports tolerating a liquid diet well. Denies chest pain, shortness of breath, palpitations, hemoptysis, sputum production, fever, chills, N/V/D. Objective Data Objective Data Vital Signs: Vital Signs Temp Pulse Resp BP Pulse Ox 98.6 F 82 20 H 148/78 H 93 03/25/21 09:26 03/25/21 10:48 03/25/21 10:48 03/25/21 09:26 03/25/21 09:26 Oxygen Flow Rate (L/min) 96 Oxygen Delivery Method Room Air Weight: 207 lb 14.334 oz Body Mass Index (BMI) 36.6 Intake & Output: Intake and Output for Last 24 Hours 03/23/21 03/24/21 03/25/21 23:59 23:59 23:59 Intake Total 370 / 370 1702 / 1702 724 / 724 Output Total 300 / 300 250 / 250 Balance 370 / 370 1402 / 1402 474 / 474 Medical Nutrition Assessment Dietitian: Nutrition Therapy Diagnosis Start: 03/18/21 09:59 Freq: Status: Active Protocol: Document 03/21/21 10:16 RMA (Rec: 03/21/21 10:16 RMA [id number]) Nutrition Malnutrition Evidence of Malnutrition Exists No Intake Problem Inadequate Oral Intake Etiology r/t GI dysfunction Signs/Symptoms as evidenced by no PO intake x 4 days Status Active Problem Clinical Problem Altered GI Function Etiology related to inflammation/ diverticulitis Signs/Symptoms as evidenced by need for sigmoid colectomy w/ end colostomy and continued NPO status Status Active Problem Recommendation Dietitian Recommendations/Changes 1.) Advance diet as tolerated and medically able to Transitional. 2.) If pt anticipated to remain NPO > 5 days w/ no plans to resume PO diet for >1 week, recommend consideration of TF if PO remains contraindicated or TPN if enteral nutrition and PO diet remain contraindicated-- consult RDN as indicated for order and management of nutrition support. 3.) Pt will need WELLNESS CONSULTANT evaluation prior to PO diet advancement--consistency of solids/liquids as per speech. Lab / Micro Data Result Diagrams: 03/25/21 06:22 03/25/21 06:22 Labs: Laboratory Results - last 24 hr 03/24/21 11:15: POC Glucose 202 H 03/24/21 17:52: POC Glucose 205 H 03/24/21 23:16: POC Glucose 156 H 03/25/21 05:38: POC Glucose 160 H 03/25/21 06:22: WBC 14.5 H, RBC 3.23 L, Hgb 8.8 L, Hct 29.2 L, MCV 90.4 D, MCH 27.2, MCHC 30.1 L D, RDW Std Deviation 49.0 H, RDW Coeff of Sean 14.8 H, Plt Count 323, MPV 10.2, Immature Gran % (Auto) 0.800, Neut % (Auto) 85.6 H, Lymph % (Auto) 7.0 L, [place] % (Auto) 5.7, Eos % (Auto) 0.8, Baso % (Auto) 0.1, Absolute Neuts (auto) 12.4 H, Absolute Lymphs (auto) 1.02, Nucleated RBC % 0 03/25/21 06:22: Sodium 143, Potassium 2.9 L, Chloride 108 H, Carbon Dioxide 26.0, Anion Gap 9, BUN 14, Creatinine 0.65 L, Estim Creat Clear Calc 50.98, Est GFR (MDRD) Af Amer 154, Est GFR (MDRD) Non-Af 127, BUN/Creatinine Ratio 21.7 H, Glucose 154 H, Calcium 8.4 L 03/25/21 06:22: Magnesium 1.2 L 03/25/21 11:45: POC Glucose 199 H Micro: Microbiology 03/19/21 10:50 Wound Drainage - Other Gram Stain - Final 03/19/21 10:50 Wound Drainage - Other Wound Culture - Final Strep anginosus Escherichia coli 03/19/21 10:50 Wound Drainage - Other Anaerobic Culture - Preliminary Gram negative kinjal 03/19/21 07:30 Stool Enteric Bacteriology - Final 03/19/21 07:30 Stool C. difficile DNA Amplification - Final 03/18/21 02:34 Mucosa - Nasopharyngeal SARS-CoV-2 Antigen (Rapid) - Final Physical Exam Const alert, oriented x3 and no apparent distress HEENT head/scalp atraumatic and moist oral mucous membranes Head and Scalp: normocephalic Eyes EOMs intact bilaterally and conjunctivae normal Neck no lymphadenopathy, supple and no JVD Resp normal respiratory effort, no retractions and no use of accessory muscles Cardio regular rate, regular rhythm, no murmurs and no JVD GI soft to palpation and non-tender GI Narrative: Minor improving distention, normoactive bowel sounds. Extremity normal to inspection, full ROM and no clubbing, cyanosis or edema Skin no rashes or lesions noted, no wounds and skin turgor normal Neuro CN's II-XII intact bilaterally Psych affect normal Assessment & Plan Assessment/Plan (1) Diverticulitis: (2) Perforation of sigmoid colon due to diverticulitis: (3) Carotid stenosis: QUALIFIERS: Laterality: right Qualified Code(s): I65.21 - Occlusion and stenosis of right carotid artery PLAN: Day 7: See subjective. Discharge planning: Patient to be discharged to TCU when medically ready. 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 General surgery following recommends continuing Zosyn and clear liquid diet. 2) acute left middle cerebral artery ischemia MRI demonstrated ischemic infarction in the left middle cerebral artery. Neurology consult conducted, heparin contraindicated until 04/03/2021, no revascularization necessary at this time. Patient to discharge to TCU when medically ready. Plan; continue aspirin and statin. 3) carotid stenosis Chronic left carotid occlusion with greater than 70% stenosis on the right, stable from last examination on 04/09/2020. Dr. Bhatia does not feel that candidate for CEA. 4) A. fib Warfarin on hold due to surgery and possible need for future surgery. Patient is not on any rate controlling medications. DVT prophylaxis - not indicated Patient seen by Ryan Weller PA-C, under the supervision of Dr. Ugalde. Documented by User: Dr. Faizan Ugalde MD 03/25/21 13:26 Objective Data Lab / Micro Data Result Diagrams: 03/25/21 06:22 03/25/21 06:22 Assessment & Plan Addt'l Comments This patient was seen in conjunction with Ryan Weller PA-C. I have independently interviewed and examined the patient and reviewed pertinent historical, laboratory, and other data. Please refer to Ryan Weller PA-C's note for details of this patient's presentation, findings, and recommendations. I have reviewed Ryan Weller PA-C's note and concur with documented findings. In brief, patient is a 80-year-old gentleman initially admitted with abdominal pain later found to have sigmoid diverticulitis with perforation patient underwent sigmoid colectomy with end colostomy and Presley's procedure. Hospital stay complicated by development of acute left middle cerebral artery ischemic stroke Physical Examination: GENERAL: In no distress HEENT: Atraumatic; EYES; Anicteric, Normal Conjunctiva NECK; supple, normal thyroid, RESPIRATORY: Diminished to auscultation PSYCH; Flat affect Assessment: 1. 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 Acute ischemic stroke involving the left middle cerebral artery 3. Carotid artery stenosis 4. Paroxysmal A. fib 5. Essential hypertension 6. Diabetes mellitus type 2 7. Dyslipidemia 8. DVT prophylaxis Recommendations: 1. I have discussed the results of my overview and impressions with the patient 2. Options for management were reviewed Charges/Coding Visit Charges Inpatient E&M: 94304 Subs Hosp L2
[2021-03-25 16:20] LABS: Bedside Glucose 176 mg/dL (70-110)
[2021-03-25 21:51] LABS: Bedside Glucose 196 mg/dL (70-110)
[2021-03-25] MEDS: Atorvastatin Calcium 40 MG Tablet PO (22:49)
[2021-03-26] VITALS (11 sets, daily range): BP systolic 124–159; BP diastolic 60–74; PULSE 66–88; RESP 16–24; TEMP 36.5–37.2; O2SAT 94–96
[2021-03-26 05:53] LABS: Absolute Lymphocyte Count 0.89 X10^3/uL (0.83-4.51); Absolute Neutrophil Count 11.6 X10^3/uL (2.0-7.7); Basophil# 0.03 X10^3/uL; Basophil% 0.2 % (0-1); Eosinophil# 0.31 X10^3/uL; Eosinophils% 2.3 % (0-5); Hematocrit 26.8 % (40-54); Hemoglobin 8.2 g/dL (13.0-16.5); Lymphocyte # 0.89 X10^3/ul (0.83-4.51); Lymphocyte % 6.5 % (19-41); Mean Corp Hgb Conc 30.6 g/dL (32-36); Mean Corpuscular Hgb 27.7 pg (27.0-32.0); Mean Corpuscular Volume 90.5 fL (80-94); Mean Platelet Vol. 10.4 fl (6.2-12.0); Monocyte# 0.64 X10^3/uL; Monocyte% 4.7 % (0-10); NRBC Flagged by Analyzer 0 % (0-5); Neutrophil # 11.64 X10^3/uL (2.7-7.7); Neutrophil % 85.3 % (47-70); Platelet Count 315 K/mm3 (150-450); RBC Distribution Width SD 49.1 fl (35.1-43.9); Red Blood Count 2.96 M/mm3 (4.6-6.2); White Blood Count 13.7 K/mm3 (4.4-11.0)
[2021-03-26 06:24] LABS: Anion Gap 6 (5-15); BUN 16 mg/dL (7-18); BUN/Creat Ratio 20.8 RATIO (10-20); Chloride 106 mmol/L (98-107); Creatinine, Serum 0.77 mg/dL (0.70-1.30); EST Glomerular Filtration Rate 104 mL/min (>60); Est Glom Filt Rate - Afr Amer 125 mL/min (>60); Estimated Creatinine Clearance 50.98 ml/min; Glucose 227 mg/dL (74-106); Magnesium 1.7 mg/dL (1.6-2.6); Potassium 2.9 mmol/L (3.5-5.1); Sodium Level 141 mmol/L (136-145)
[2021-03-26] MEDS: Insulin Lispro 100 UNIT/ML INSULN.PEN SC ×4 (06:58→21:35)
[2021-03-26 07:05] LABS: Bedside Glucose 225 mg/dL (70-110)
[2021-03-26] MEDS: Ipratropium/Albuterol Sulfate 3 ML AMPUL.NEB INHALATION ×3 (07:10→14:48)
--- NOTE | 2021-03-26 08:36 | PCM.PN.SRG ---
Subjective Subjective Patient not complaining of any nausea or vomiting. Objective Data Objective Data Vital Signs: Vital Signs Temp Pulse Resp BP Pulse Ox 99.0 F 85 24 H 139/64 H 95 03/26/21 03:14 03/26/21 07:10 03/26/21 07:10 03/26/21 03:14 03/26/21 07:10 Oxygen Flow Rate (L/min) 96 Oxygen Delivery Method Room Air Weight: 208 lb 1.862 oz Body Mass Index (BMI) 36.6 Intake & Output: Intake and Output for Last 24 Hours 03/24/21 03/25/21 03/26/21 23:59 23:59 23:59 Intake Total 1702 / 1702 1111.71 / 1111.71 1050 / 1050 Output Total 300 / 300 250 / 250 450 / 450 Balance 1402 / 1402 861.71 / 861.71 600 / 600 Medical Nutrition Assessment Dietitian: Nutrition Therapy Diagnosis Start: 03/18/21 09:59 Freq: Status: Active Protocol: Document 03/25/21 12:27 RMA (Rec: 03/25/21 12:29 RMA [id number]) Nutrition Malnutrition Evidence of Malnutrition Exists No Intake Problem Inadequate Oral Intake Etiology r/t altered GI function Signs/Symptoms as evidenced by clear liquid diet x day #2 after 6 days NPO Status Active Problem Clinical Problem Altered GI Function Etiology related to inflammation/ diverticulitis Signs/Symptoms as evidenced by need for sigmoid colectomy w/ end colostomy and Clear liquid diet/NPO x day #8 Status Active Problem Recommendation Dietitian Recommendations/Changes 1.) Advance diet as tolerated and medically able to Transitional with goal diet of Carbohydrate/Controlled/ Cardiac. 2.) If pt anticipated to remain on clear liquids greater than 24-48 hours, recommend consideration of parenteral nutrition support to supplement clear liquids especially given extended NPO prior to clear liquids started yesterday--consult RDN as indicated for order and management of nutrition support. 3.) Consistency of solids/ liquids as per RESEARCH CHEMICAL ENGINEER. 4.) Will add 240ml ensure clear TID while on clear liquid diet. 5.) Additional ONS as needed as diet advances from clears. Lab / Micro Data Result Diagrams: 03/26/21 05:32 03/26/21 05:32 Labs: Laboratory Results - last 24 hr 03/25/21 11:45: POC Glucose 199 H 03/25/21 16:15: POC Glucose 176 H 03/25/21 21:29: POC Glucose 196 H 03/26/21 05:32: WBC 13.7 H, RBC 2.96 L, Hgb 8.2 L, Hct 26.8 L, MCV 90.5, MCH 27.7, MCHC 30.6 L, RDW Std Deviation 49.1 H, RDW Coeff of [place] 15.0 H, Plt Count 315, MPV 10.4, Immature Gran % (Auto) 1.000 H, Neut % (Auto) 85.3 H, Lymph % (Auto) 6.5 L, [place] % (Auto) 4.7, Eos % (Auto) 2.3, Baso % (Auto) 0.2, Absolute Neuts (auto) 11.6 H, Absolute Lymphs (auto) 0.89, Nucleated RBC % 0 03/26/21 05:32: Sodium 141, Potassium 2.9 L, Chloride 106, Carbon Dioxide 29.0, Anion Gap 6, BUN 16, Creatinine 0.77, Estim Creat Clear Calc 50.98, Est GFR (MDRD) Af Amer 125, Est GFR (MDRD) Non-Af 104, BUN/Creatinine Ratio 20.8 H, Glucose 227 H, Calcium 8.0 L, Magnesium 1.7 03/26/21 06:57: POC Glucose 225 H Micro: Microbiology 03/19/21 10:50 Wound Drainage - Other Gram Stain - Final 03/19/21 10:50 Wound Drainage - Other Wound Culture - Final Strep anginosus Escherichia coli 03/19/21 10:50 Wound Drainage - Other Anaerobic Culture - Final Prevotella nanceiensis 03/19/21 07:30 Stool Enteric Bacteriology - Final 03/19/21 07:30 Stool C. difficile DNA Amplification - Final 03/18/21 02:34 Mucosa - Nasopharyngeal SARS-CoV-2 Antigen (Rapid) - Final Physical Exam Const oriented x3 and no apparent distress Resp normal respiratory effort GI soft to palpation Assessment & Plan Assessment/Plan (1) Perforation of sigmoid colon due to diverticulitis: PLAN: The patient does not report any nausea or vomiting and he has stool coming from his colostomy. He is still having purulent drainage from his incision. It is being packed 3 times a day with wet-to-dry dressings and he was started back on Zosyn. Fascia is intact. I will start him on a diet today to encourage nutrition for wound healing. Continue Zosyn and observation. He may be ready for discharge once purulent drainage has ceased and a wound VAC is placed on his incision. Willy Cervantes MD Pager: [facility] [address] [place] [address] [address] [place] [address] Office:
[2021-03-26] MEDS: Aspirin E.C. 81 MG Tablet PO (08:42)
[2021-03-26] MEDS: Potassium Chloride 10mEq/100mL 10 MEQ/100 ML IV.SOLN. 100 MEQ IV BOLUS ×4 (08:42→13:00)
[2021-03-26] MEDS: Pantoprazole Sodium 40 MG Tablet PO (08:43)
[2021-03-26] MEDS: Lisinopril 20 MG Tablet PO (08:43)
[2021-03-26] MEDS: 0.9% Saline Lock 10 ML Syringe IV (09:05)
--- NOTE | 2021-03-26 11:16 | PN.HOSP_ITS ---
Documented by User: Ryan MAY 03/26/21 11:23 Subjective Subjective Patient is a 80-year-old male comfortably resting in bed, alert and orient x3. Patient reports no change or progression of symptoms from yesterday. Denies chest pain, shortness of breath, palpitations, hemoptysis, sputum production, fever, chills, N/V/D. Objective Data Objective Data Vital Signs: Vital Signs Temp Pulse Resp BP Pulse Ox 99.0 F 88 24 H 139/64 H 95 03/26/21 03:14 03/26/21 10:48 03/26/21 10:48 03/26/21 03:14 03/26/21 07:10 Oxygen Flow Rate (L/min) 96 Oxygen Delivery Method Room Air Weight: 208 lb 1.862 oz Body Mass Index (BMI) 36.6 Intake & Output: Intake and Output for Last 24 Hours 03/24/21 03/25/21 03/26/21 23:59 23:59 23:59 Intake Total 1702 / 1702 1111.71 / 1111.71 1200 / 1200 Output Total 300 / 300 250 / 250 450 / 450 Balance 1402 / 1402 861.71 / 861.71 750 / 750 Medical Nutrition Assessment Dietitian: Nutrition Therapy Diagnosis Start: 03/18/21 09:59 Freq: Status: Active Protocol: Document 03/25/21 12:27 RMA (Rec: 03/25/21 12:29 RMA [id number]) Nutrition Malnutrition Evidence of Malnutrition Exists No Intake Problem Inadequate Oral Intake Etiology r/t altered GI function Signs/Symptoms as evidenced by clear liquid diet x day #2 after 6 days NPO Status Active Problem Clinical Problem Altered GI Function Etiology related to inflammation/ diverticulitis Signs/Symptoms as evidenced by need for sigmoid colectomy w/ end colostomy and Clear liquid diet/NPO x day #8 Status Active Problem Recommendation Dietitian Recommendations/Changes 1.) Advance diet as tolerated and medically able to Transitional with goal diet of Carbohydrate/Controlled/ Cardiac. 2.) If pt anticipated to remain on clear liquids greater than 24-48 hours, recommend consideration of parenteral nutrition support to supplement clear liquids especially given extended NPO prior to clear liquids started yesterday--consult RDN as indicated for order and management of nutrition support. 3.) Consistency of solids/ liquids as per VESSEL OPERATOR. 4.) Will add 240ml ensure clear TID while on clear liquid diet. 5.) Additional ONS as needed as diet advances from clears. Lab / Micro Data Result Diagrams: 03/26/21 05:32 03/26/21 05:32 Labs: Laboratory Results - last 24 hr 03/25/21 11:45: POC Glucose 199 H 03/25/21 16:15: POC Glucose 176 H 03/25/21 21:29: POC Glucose 196 H 03/26/21 05:32: WBC 13.7 H, RBC 2.96 L, Hgb 8.2 L, Hct 26.8 L, MCV 90.5, MCH 27.7, MCHC 30.6 L, RDW Std Deviation 49.1 H, RDW Coeff of Sean 15.0 H, Plt Count 315, MPV 10.4, Immature Gran % (Auto) 1.000 H, Neut % (Auto) 85.3 H, Lymph % (Auto) 6.5 L, [place] % (Auto) 4.7, Eos % (Auto) 2.3, Baso % (Auto) 0.2, Absolute Neuts (auto) 11.6 H, Absolute Lymphs (auto) 0.89, Nucleated RBC % 0 03/26/21 05:32: Sodium 141, Potassium 2.9 L, Chloride 106, Carbon Dioxide 29.0, Anion Gap 6, BUN 16, Creatinine 0.77, Estim Creat Clear Calc 50.98, Est GFR ( MDRD) Af Amer 125, Est GFR (MDRD) Non-Af 104, BUN/Creatinine Ratio 20.8 H, Glucose 227 H, Calcium 8.0 L, Magnesium 1.7 03/26/21 06:57: POC Glucose 225 H Micro: Microbiology 03/19/21 10:50 Wound Drainage - Other Gram Stain - Final 03/19/21 10:50 Wound Drainage - Other Wound Culture - Final Strep anginosus Escherichia coli 03/19/21 10:50 Wound Drainage - Other Anaerobic Culture - Final Prevotella nanceiensis 03/19/21 07:30 Stool Enteric Bacteriology - Final 03/19/21 07:30 Stool C. difficile DNA Amplification - Final 03/18/21 02:34 Mucosa - Nasopharyngeal SARS-CoV-2 Antigen (Rapid) - Final Physical Exam Const alert, oriented x3 and no apparent distress HEENT head/scalp atraumatic and moist oral mucous membranes Head and Scalp: normocephalic Eyes EOMs intact bilaterally and conjunctivae normal Neck no lymphadenopathy, supple and no JVD Resp normal respiratory effort, no retractions and no use of accessory muscles Cardio regular rate, regular rhythm, no murmurs and no JVD GI normal to inspection, nondistended, normoactive bowel sounds, soft to palpation and non-tender Extremity normal to inspection, full ROM and no clubbing, cyanosis or edema Skin no rashes or lesions noted, no wounds, skin turgor normal and no jaundice Neuro CN's II-XII intact bilaterally Psych affect normal Assessment & Plan Assessment/Plan (1) Diverticulitis: (2) Perforation of sigmoid colon due to diverticulitis: (3) Carotid stenosis: QUALIFIERS: Laterality: right Qualified Code(s): I65.21 - Occlusion and stenosis of right carotid artery PLAN: Day 8: See subjective. Discharge planning: Patient to be discharged to TCU when medically ready. 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 General surgery following recommends continuing Zosyn and advancing diet. If diet is well tolerated and wound vac is placed, patient will be stable for DC from gen surgery standpoint. 2) acute left middle cerebral artery ischemia MRI demonstrated ischemic infarction in the left middle cerebral artery. Neurology consult conducted, heparin contraindicated until 04/03/2021, no revascularization necessary at this time. Echocardiogram on 04/05 showed an overall stable echocardiogram when compared to study done in November: estimated EF of 55 to 60%, moderate tricuspid regurg and a pulmonary artery systolic pressure of 55 mmHg consistent with moderate pulmonary hypertension. Patient to discharge to TCU when medically ready. Plan; continue aspirin and statin. 3) carotid stenosis Chronic left carotid occlusion with greater than 70% stenosis on the right, stable from last examination on 04/09/2020. Dr. Bhatia does not feel that candidate for CEA. 4) A. fib Warfarin on hold due to surgery and possible need for future surgery. Patient is not on any rate controlling medications. DVT prophylaxis - not indicated Patient seen by Ryan Weller PA-C, under the supervision of Dr. Ugalde. Documented by User: Dr. Faizan Ugalde MD 03/26/21 11:49 Objective Data Lab / Micro Data Result Diagrams: 03/26/21 05:32 03/26/21 05:32 Assessment & Plan Addt'l Comments This patient was seen in conjunction with Ryan Weller PA-C. I have independent ly interviewed and examined the patient and reviewed pertinent historical, laboratory, and other data. Please refer to Ryan Weller PA-C's note for details of this patient's presentation, findings, and recommendations. I have reviewed Ryan Weller PA-C's note and concur with documented findings. In brief, patient is a 80-year-old gentleman initially admitted with abdominal pain later found to have sigmoid diverticulitis with perforation patient underwent sigmoid colectomy with end colostomy and Presley's procedure. Hospital stay complicated by development of acute left middle cerebral artery ischemic stroke 03/26/2021; patient scheduled to undergo wound VAC placement Physical Examination: GENERAL: In no distress HEENT: Atraumatic; EYES; Anicteric, Normal Conjunctiva NECK; supple, normal thyroid, RESPIRATORY: Diminished to auscultation PSYCH; Flat affect Assessment: 1. 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 Acute ischemic stroke involving the left middle cerebral artery 3. Carotid artery stenosis 4. Paroxysmal A. fib 5. Essential hypertension 6. Diabetes mellitus type 2 7. Dyslipidemia 8. DVT prophylaxis Recommendations: 1. I have discussed the results of my overview and impressions with the patient 2. Options for management were reviewed Charges/Coding Visit Charges Inpatient E&M: 72969 Subs Hosp L2
[2021-03-26 12:01] LABS: Bedside Glucose 191 mg/dL (70-110)
--- NOTE | 2021-03-26 14:01 | NURSING ---
Had discussed wound care with Dr Cervantes. plan to hold off on wound VAC for now d/t the amount of purulent drainage at the wound base. will reassess again in the am and decide on plan of wet to dry dressings vs. VAC placement.
[2021-03-26 17:51] LABS: Bedside Glucose 181 mg/dL (70-110)
[2021-03-26] MEDS: Atorvastatin Calcium 40 MG Tablet PO (21:38)
[2021-03-26 21:46] LABS: Bedside Glucose 161 mg/dL (70-110)
[2021-03-27] VITALS (12 sets, daily range): BP systolic 137–168; BP diastolic 62–97; PULSE 66–79; RESP 16–95; TEMP 37.1–37.2; O2SAT 94–96
[2021-03-27] MEDS: Insulin Lispro 100 UNIT/ML INSULN.PEN SC ×4 (06:45→21:49)
[2021-03-27 06:50] LABS: Bedside Glucose 183 mg/dL (70-110)
[2021-03-27 07:11] LABS: Absolute Lymphocyte Count 1.11 X10^3/uL (0.83-4.51); Basophil# 0.04 X10^3/uL; Basophil% 0.3 % (0-1); Eosinophil# 0.32 X10^3/uL; Eosinophils% 2.1 % (0-5); Hematocrit 27.6 % (40-54); Hemoglobin 8.4 g/dL (13.0-16.5); Lymphocyte # 1.11 X10^3/ul (0.83-4.51); Lymphocyte % 7.2 % (19-41); Mean Corp Hgb Conc 30.4 g/dL (32-36); Mean Corpuscular Hgb 27.5 pg (27.0-32.0); Mean Corpuscular Volume 90.2 fL (80-94); Mean Platelet Vol. 10.6 fl (6.2-12.0); Monocyte# 0.83 X10^3/uL; Monocyte% 5.4 % (0-10); NRBC Flagged by Analyzer 0 % (0-5); Neutrophil # 12.99 X10^3/uL (2.7-7.7); Neutrophil % 84.2 % (47-70); Platelet Count 356 K/mm3 (150-450); RBC Distribution Width SD 49.5 fl (35.1-43.9); Red Blood Count 3.06 M/mm3 (4.6-6.2); White Blood Count 15.4 K/mm3 (4.4-11.0)
--- NOTE | 2021-03-27 07:13 | CT_ITS ---
STUDY: CT ABDOMEN AND PELVIS WITH CONTRAST REASON FOR EXAM: Male, 80 years old. Colon resection. Follow-up fluid collection. RADIATION DOSAGE (If Supplied By Facility): CTDIvol = ( 21.70 ) mGy, DLP = ( 1316.43 ) mGycm TECHNIQUE: Transaxial images were obtained from the dome of the diaphragm to the symphysis pubis with oral contrast. 100 ml of ISOVUE-300 contrast was administered. Sagittal and coronal images were reconstructed. Individualized dose optimization techniques were used for this CT. COMPARISON: 03/18/21 FINDINGS: There are small bilateral pleural effusions with overlying atelectasis. There are coronary artery calcifications noted. The visualized portions of the heart and pericardium are within normal limits. There are no calcified gallstones present. The liver is within normal limits. There are no suspicious hepatic lesions. The spleen is normal in size. The pancreas is within normal limits. The adrenal glands are within normal limits. There are no renal or ureteral stones. There is no hydronephrosis. There are stable cysts in the kidneys. Normal visualized stomach. There are postsurgical changes from colonic resection with a left lower quadrant colostomy in place. There is no bowel obstruction or inflammation. The appendix is not visualized, but there are no findings to suggest acute appendicitis. The aorta is normal in caliber. There are stable atherosclerotic calcifications noted in the aorta. There is a small amount of free air and free fluid in the pelvis, consistent with the patient''s recent postoperative state. The previously seen air and fluid collection in the pelvis has resolved. There is thickening of the left abdominal rectus muscle adjacent to the colostomy. There are no destructive osseous lesions. CT/Abdomen/Pelvis WITH Contrast IMPRESSION: Post surgical changes from colonic resection with a left lower quadrant colostomy in place. No bowel obstruction or inflammation. Small amount of free fluid and free air in the pelvis, consistent with the patient''s postoperative state. Resolution of the previously seen pelvic fluid collection. Thickening of the left abdominal rectus muscle adjacent to the colostomy site. This may be due to an intramuscular hematoma or abscess. Small bilateral pleural effusions with overlying atelectasis. Electronically Signed: Piotr Dobson MD at 9:54 EDT Tel , Service support ,
--- NOTE | 2021-03-27 07:24 | PCM.PN.SRG ---
Subjective Subjective Patient tolerated regular diet with no issues yesterday and was afebrile. Objective Data Objective Data Vital Signs: Vital Signs Temp Pulse Resp BP Pulse Ox 98.8 F 78 16 137/97 H 94 03/27/21 03:14 03/27/21 03:14 03/27/21 03:14 03/27/21 03:14 03/27/21 03:14 Oxygen Flow Rate (L/min) 96 Oxygen Delivery Method Room Air Weight: 208 lb 1.862 oz Body Mass Index (BMI) 36.6 Intake & Output: Intake and Output for Last 24 Hours 03/25/21 03/26/21 03/27/21 23:59 23:59 23:59 Intake Total 1111.71 / 1111.71 1550 / 1850 850 / 850 Output Total 250 / 250 450 / 750 600 / 600 Balance 861.71 / 861.71 1100 / 1100 250 / 250 Medical Nutrition Assessment Dietitian: Nutrition Therapy Diagnosis Start: 03/18/21 09:59 Freq: Status: Active Protocol: Document 03/25/21 12:27 RMA (Rec: 03/25/21 12:29 RMA [id number]) Nutrition Malnutrition Evidence of Malnutrition Exists No Intake Problem Inadequate Oral Intake Etiology r/t altered GI function Signs/Symptoms as evidenced by clear liquid diet x day #2 after 6 days NPO Status Active Problem Clinical Problem Altered GI Function Etiology related to inflammation/ diverticulitis Signs/Symptoms as evidenced by need for sigmoid colectomy w/ end colostomy and Clear liquid diet/NPO x day #8 Status Active Problem Recommendation Dietitian Recommendations/Changes 1.) Advance diet as tolerated and medically able to Transitional with goal diet of Carbohydrate/Controlled/ Cardiac. 2.) If pt anticipated to remain on clear liquids greater than 24-48 hours, recommend consideration of parenteral nutrition support to supplement clear liquids especially given extended NPO prior to clear liquids started yesterday--consult RDN as indicated for order and management of nutrition support. 3.) Consistency of solids/ liquids as per MANUFACTURING MACHINE OPERATOR. 4.) Will add 240ml ensure clear TID while on clear liquid diet. 5.) Additional ONS as needed as diet advances from clears. Lab / Micro Data Result Diagrams: 03/27/21 06:40 03/26/21 05:32 Labs: Laboratory Results - last 24 hr 03/26/21 11:54: POC Glucose 191 H 03/26/21 17:30: POC Glucose 181 H 03/26/21 21:34: POC Glucose 161 H 03/27/21 06:40: WBC 15.4 H, RBC 3.06 L, Hgb 8.4 L, Hct 27.6 L, MCV 90.2, MCH 27.5, MCHC 30.4 L, RDW Std Deviation 49.5 H, RDW Coeff of Sean 15.0 H, Plt Count 356, MPV 10.6, Immature Gran % (Auto) 0.800, Neut % (Auto) 84.2 H, Lymph % (Auto) 7.2 L, [place] % (Auto) 5.4, Eos % (Auto) 2.1, Baso % (Auto) 0.3, Absolute Neuts (auto) 13.0 H, Absolute Lymphs (auto) 1.11, Nucleated RBC % 0 03/27/21 06:43: POC Glucose 183 H Micro: Microbiology 03/19/21 10:50 Wound Drainage - Other Gram Stain - Final 03/19/21 10:50 Wound Drainage - Other Wound Culture - Final Strep anginosus Escherichia coli 03/19/21 10:50 Wound Drainage - Other Anaerobic Culture - Final Prevotella nanceiensis 03/19/21 07:30 Stool Enteric Bacteriology - Final 03/19/21 07:30 Stool C. difficile DNA Amplification - Final 03/18/21 02:34 Mucosa - Nasopharyngeal SARS-CoV-2 Antigen (Rapid) - Final Physical Exam Const oriented x3 and no apparent distress GI soft to palpation GI Narrative: Purulent drainage from incision Assessment & Plan Assessment/Plan (1) Colon cancer: QUALIFIERS: Colon location: sigmoid Qualified Code(s): C18.7 - Malignant neoplasm of sigmoid colon (2) Perforated sigmoid colon: (3) Deep incisional surgical site infection: PLAN: The patient tolerated regular diet with no issue. He was afebrile overnight. He still maintains purulent drainage from his wound. His white count is slightly more elevated than yesterday. He has been on Zosyn for 48 hours. I changed him to a clear liquid diet and ordered a stat CT scan of the abdomen pelvis to elucidate if the purulent drainage is coming from an intra-abdominal source. Willy Cervantes MD Pager: [facility] [address] [place] [address], [facility] [address] [place] [address] Office:
[2021-03-27 07:40] LABS: Anion Gap 6 (5-15); BUN 14 mg/dL (7-18); BUN/Creat Ratio 20.5 RATIO (10-20); Calcium,Total 8.3 mg/dL (8.5-10.1); Chloride 107 mmol/L (98-107); Creatinine, Serum 0.68 mg/dL (0.70-1.30); EST Glomerular Filtration Rate 119 mL/min (>60); Est Glom Filt Rate - Afr Amer 144 mL/min (>60); Estimated Creatinine Clearance 50.98 ml/min; Glucose 180 mg/dL (74-106); Potassium 3.6 mmol/L (3.5-5.1); Sodium Level 140 mmol/L (136-145)
[2021-03-27] MEDS: Lisinopril 20 MG Tablet PO (08:43)
[2021-03-27] MEDS: Pantoprazole Sodium 40 MG Tablet PO (08:43)
--- NOTE | 2021-03-27 10:35 | NURSING ---
charge nurse Radha CLAYTON assisting in providing care to pt
[2021-03-27] MEDS: Ipratropium/Albuterol Sulfate 3 ML AMPUL.NEB INHALATION (11:20)
[2021-03-27] MEDS: Aspirin E.C. 81 MG Tablet PO (11:46)
[2021-03-27 11:56] LABS: Bedside Glucose 154 mg/dL (70-110)
--- NOTE | 2021-03-27 12:34 | PCM.PN.HOSP ---
Documented by User: Ryan MAY 03/27/21 12:48 Subjective Subjective Patient is a 80-year-old male comfortably resting in bed, alert and orient x3. Patient is currently reporting no abdominal pain or cramping and appears to be tolerating regular diet well. Denies chest pain, shortness of breath, palpitations, hemoptysis, sputum production, fever, chills, N/V/D. Objective Data Objective Data Vital Signs: Vital Signs Temp Pulse Resp BP Pulse Ox 98.7 F 72 18 165/72 H 96 03/27/21 08:35 03/27/21 08:35 03/27/21 08:35 03/27/21 08:35 03/27/21 08:35 Oxygen Flow Rate (L/min) 96 Oxygen Delivery Method Room Air Weight: 208 lb 1.862 oz Body Mass Index (BMI) 36.6 Intake & Output: Intake and Output for Last 24 Hours 03/25/21 03/26/21 03/27/21 23:59 23:59 23:59 Intake Total 1111.71 / 1111.71 1550 / 1850 900 / 900 Output Total 250 / 250 450 / 750 600 / 600 Balance 861.71 / 861.71 1100 / 1100 300 / 300 Medical Nutrition Assessment Dietitian: Nutrition Therapy Diagnosis Start: 03/18/21 09:59 Freq: Status: Active Protocol: Document 03/25/21 12:27 RMA (Rec: 03/25/21 12:29 RMA [id number]) Nutrition Malnutrition Evidence of Malnutrition Exists No Intake Problem Inadequate Oral Intake Etiology r/t altered GI function Signs/Symptoms as evidenced by clear liquid diet x day #2 after 6 days NPO Status Active Problem Clinical Problem Altered GI Function Etiology related to inflammation/ diverticulitis Signs/Symptoms as evidenced by need for sigmoid colectomy w/ end colostomy and Clear liquid diet/NPO x day #8 Status Active Problem Recommendation Dietitian Recommendations/Changes 1.) Advance diet as tolerated and medically able to Transitional with goal diet of Carbohydrate/Controlled/ Cardiac. 2.) If pt anticipated to remain on clear liquids greater than 24-48 hours, recommend consideration of parenteral nutrition support to supplement clear liquids especially given extended NPO prior to clear liquids started yesterday--consult RDN as indicated for order and management of nutrition support. 3.) Consistency of solids/ liquids as per BOTTOM STEEP TENDER. 4.) Will add 240ml ensure clear TID while on clear liquid diet. 5.) Additional ONS as needed as diet advances from clears. Lab / Micro Data Result Diagrams: 03/27/21 06:40 03/27/21 06:40 Labs: Laboratory Results - last 24 hr 03/26/21 17:30: POC Glucose 181 H 03/26/21 21:34: POC Glucose 161 H 03/27/21 06:40: WBC 15.4 H, RBC 3.06 L, Hgb 8.4 L, Hct 27.6 L, MCV 90.2, MCH 27.5, MCHC 30.4 L, RDW Std Deviation 49.5 H, RDW Coeff of Sean 15.0 H, Plt Count 356, MPV 10.6, Immature Gran % (Auto) 0.800, Neut % (Auto) 84.2 H, Lymph % (Auto) 7.2 L, [place] % (Auto) 5.4, Eos % (Auto) 2.1, Baso % (Auto) 0.3, Absolute Neuts (auto) 13.0 H, Absolute Lymphs (auto) 1.11, Nucleated RBC % 0 03/27/21 06:40: Sodium 140, Potassium 3.6, Chloride 107, Carbon Dioxide 27.0, Anion Gap 6, BUN 14, Creatinine 0.68 L, Estim Creat Clear Calc 50.98, Est GFR (MDRD) Af Amer 144, Est GFR (MDRD) Non-Af 119, BUN/Creatinine Ratio 20.5 H, Glucose 180 H, Calcium 8.3 L 03/27/21 06:43: POC Glucose 183 H 03/27/21 11:42: POC Glucose 154 H Micro: Microbiology 03/19/21 10:50 Wound Drainage - Other Gram Stain - Final 03/19/21 10:50 Wound Drainage - Other Wound Culture - Final Strep anginosus Escherichia coli 03/19/21 10:50 Wound Drainage - Other Anaerobic Culture - Final Prevotella nanceiensis 03/19/21 07:30 Stool Enteric Bacteriology - Final 03/19/21 07:30 Stool C. difficile DNA Amplification - Final 03/18/21 02:34 Mucosa - Nasopharyngeal SARS-CoV-2 Antigen (Rapid) - Final Radiography Diagnostic Testing: Radiology Impression Abdomen/Pelvis CT 03/27/21 07:13 IMPRESSION: Post surgical changes from colonic resection with a left lower quadrant colostomy in place. No bowel obstruction or inflammation. Small amount of free fluid and free air in the pelvis, consistent with the patient''s postoperative state. Resolution of the previously seen pelvic fluid collection. Thickening of the left abdominal rectus muscle adjacent to the colostomy site. This may be due to an intramuscular hematoma or abscess. Small bilateral pleural effusions with overlying atelectasis. Electronically Signed: Piotr Dobson MD at 9:54 EDT Tel , Service support , Physical Exam Const alert, oriented x3 and no apparent distress HEENT head/scalp atraumatic and moist oral mucous membranes Head and Scalp: normocephalic Eyes EOMs intact bilaterally and conjunctivae normal Neck no lymphadenopathy, supple and no JVD Resp normal respiratory effort, no retractions, no use of accessory muscles and clear to auscultation bilaterally Cardio regular rate, regular rhythm, no murmurs and no JVD GI soft to palpation and non-tender GI Narrative: Purulent drainage from incision site. Extremity normal to inspection, full ROM and no clubbing, cyanosis or edema Skin no rashes or lesions noted, no wounds, skin turgor normal and no jaundice Neuro CN's II-XII intact bilaterally Psych affect normal Assessment & Plan Assessment/Plan (1) Deep incisional surgical site infection: (2) Perforated sigmoid colon: (3) Colon cancer: QUALIFIERS: Colon location: sigmoid Qualified Code(s): C18.7 - Malignant neoplasm of sigmoid colon (4) Carotid stenosis: QUALIFIERS: Laterality: right Qualified Code(s): I65.21 - Occlusion and stenosis of right carotid artery PLAN: Day 9: See subjective. Discharge planning: Patient to be discharged to TCU when medically ready. 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 Diet was advanced to a regular diet per general surgery, and was tolerated well with no issues. Patient continues to have purulent drainage from incision site [place] [id number], despite 2 days of Zosyn administration. Vital signs are stable and patient is afebrile and satting well. CT of the abd/pelvis ordred per general surgery to investigate surgical site and ID consult has been ordered. 2) Leukocytosis As above. 3) acute left middle cerebral artery ischemia MRI demonstrated ischemic infarction in the left middle cerebral artery. Neurology consult conducted, heparin contraindicated until 04/03/2021, no revascularization necessary at this time. Echocardiogram on 04/05 showed an overall stable echocardiogram when compared to study done in November: estimated EF of 55 to 60%, moderate tricuspid regurg and a pulmonary artery systolic pressure of 55 mmHg consistent with moderate pulmonary hypertension. Patient to discharge to TCU when medically ready. Plan; continue aspirin and statin. 4) carotid stenosis Chronic left carotid occlusion with greater than 70% stenosis on the right, stable from last examination on 04/09/2020. Dr. Bhatia does not feel that candidate for CEA. 5) A. fib Warfarin on hold due to surgery and possible need for future surgery. Patient is not on any rate controlling medications. DVT prophylaxis - not indicated Patient seen by Ryan Weller PA-C, under the supervision of Dr. Ugalde. Documented by User: Dr. Faizan Ugalde MD 03/27/21 12:55 Objective Data Lab / Micro Data Result Diagrams: 03/27/21 06:40 03/27/21 06:40 Assessment & Plan Addt'l Comments This patient was seen in conjunction with Ryan Weller PA-C. I have independently interviewed and examined the patient and reviewed pertinent historical, laboratory, and other data. Please refer to Ryan Weller PA-C's note for details of this patient's presentation, findings, and recommendations. I have reviewed Ryan Weller PA-C's note and concur with documented findings. In brief, patient is a 80-year-old gentleman initially admitted with abdominal pain later found to have sigmoid diverticulitis with perforation patient underwent sigmoid colectomy with end colostomy and Presley's procedure. Hospital stay complicated by development of acute left middle cerebral artery ischemic stroke 03/26/2021; patient scheduled to undergo wound VAC placement 03/27/2021. Patient continues to experience copious purulent discharge from his incision. CT of the abdomen obtained demonstrated thickening of the left abdominal rectus muscle adjacent to the colostomy site consistent with abscess. Patient remains on broad-spectrum antibiotic therapy consultation placed infectious disease Physical Examination: GENERAL: In no distress HEENT: Atraumatic; EYES; Anicteric, Normal Conjunctiva NECK; supple, normal thyroid, RESPIRATORY: Diminished to auscultation PSYCH; Flat affect Assessment: 1. 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 Postop wound infection 3. Acute ischemic stroke involving the left middle cerebral artery 4. Carotid artery stenosis 5. Paroxysmal A. fib 6. Essential hypertension 7. Diabetes mellitus type 2 8. Dyslipidemia 9. DVT prophylaxis Recommendations: 1. I have discussed the results of my overview and impressions with the patient 2. Options for management were reviewed Charges/Coding Visit Charges Inpatient E&M: 71226 [facility] Hosp L3
--- NOTE | 2021-03-27 13:05 | NURSING ---
Ostomy appliance leaking at the lateral edge. appliance removed. Took approx 20 min to remove all the stoma paste from the skin. some mild redness noted. No bleeding. stoma remains dark pink and moist. sits just above skin level. skin washed with warm water. pat dry. applied a new 2 piece flat [place] appliance with an [employer] ring and small bead of paste at the lateral edge. pt tolerated well.
--- NOTE | 2021-03-27 16:01 | CON.PCM.ID_ITS ---
Assessment & Plan Assessment/Plan (1) Perforated sigmoid colon: PLAN: Repeat CT done. Rising wbc, slowly. Will check wound cx of purulent drainage. Surg cx with strep, ecoli, and anaerobe. On zosyn. Covid vaccinated. Will add vanc while cx pending. Will follow, thank you HPI Consult Data Date of Consult: 03/27/21 HPI Narrative HPI Narrative: VIDHYA YA, is a 80 M who presented with one week of progressive abd pain, intermittent fever. Came to ED, found to have perforation, taken to OR 03/19/[address] Cervantes for sigmoid colectomy with end colostomy and Presley's procedure. Has been on zosyn, course complicated by some ongoing purulence and by stroke. Repeat CT done. Feeling ok, mild abd pain. Additional history obtained from son at bedside. Pt has completed covid vaccine. Full ROS performed and neg except as noted above. [facility] Medical History Diabetes mellitus, type II Diverticulitis Essential (primary) hypertension History of CVA (cerebrovascular accident) (10/21/13) History of prostate cancer Hyperlipidemia Longstanding persistent atrial fibrillation Nonobstructive atherosclerosis of coronary artery Obesity (BMI 30.0-34.9) Occlusion and stenosis of bilateral carotid arteries Patent foramen ovale Sepsis secondary to UTI Home Medications multivitamin with folic acid 1 tab PO DAILY 10/21/13 [History Last Taken Unknown] acetaminophen 325 mg tablet 650 mg PO DAILY tab 09/09/17 [History Last Taken Unknown] cyanocobalamin (vitamin B-12) 100 mcg tablet 100 mcg PO QDAY 09/09/17 [History Last Taken Unknown] metformin 1,000 mg tablet 1,000 mg PO BID 09/15/17 [History Last Taken 11/25/20] omega-3 fatty acids 1,000 mg capsule 500 mg PO DAILY 02/29/20 [History Last Taken Unknown] amlodipine 10 mg tablet 10 mg PO QDAY #90 tab 05/01/20 [Rx Last Taken 11/26/20] warfarin 1 mg tablet 1 mg PO .COMPLEX #90 tab 10/11/20 [Rx Last Taken 11/21/20] ferrous sulfate 324 mg (65 mg iron) tablet,delayed release 324 mg PO BID 11/13/20 [History Last Taken Unknown] atorvastatin See Rx Instructions .ROUTE .COMPLEX 03/07/21 [History Last Taken Unknown] lisinopril 20 mg PO DAILY 03/19/21 [History Last Taken Unknown] pantoprazole 40 mg PO DAILY 03/19/21 [History Last Taken Unknown] Allergy/AdvReac Type Severity Reaction Status Date / Time No Known Allergies Allergy Verified 03/07/21 19:11 Family History Sister Diabetes Heart disease Brother Colon cancer Father CVA (cerebral vascular accident) Surgical History History of cardioversion (01/11/10) History of knee replacement History of knee replacement procedure of left knee History of left heart catheterization (11/26/20) History of prostatectomy Social History household members: spouse housing: other history of recent travel: No Smoking Status: Never smoker alcohol intake: never caffeine: Yes Type: carbonated beverages and coffee Physical Exam Const alert and no apparent distress General Appearance: cooperative HEENT head/scalp atraumatic Eyes PERRL and EOMs intact bilaterally Neck supple and No nodes Resp normal air movement and clear to auscultation bilaterally Cardio regular rate and regular rhythm GI GI Narrative: mild soreness, ostomy and incision in place Extremity no clubbing, cyanosis or edema Skin no rashes or lesions noted Neuro CN's II-XII intact bilaterally Medical Records Data Medical Nutrition Assessment Dietitian: Nutrition Therapy Diagnosis Start: 03/18/21 09:59 Freq: Status: Active Protocol: Document 03/25/21 12:27 RMA (Rec: 03/25/21 12:29 RMA [id number]) Nutrition Malnutrition Evidence of Malnutrition Exists No Intake Problem Inadequate Oral Intake Etiology r/t altered GI function Signs/Symptoms as evidenced by clear liquid diet x day #2 after 6 days NPO Status Active Problem Clinical Problem Altered GI Function Etiology related to inflammation/ diverticulitis Signs/Symptoms as evidenced by need for sigmoid colectomy w/ end colostomy and Clear liquid diet/NPO x day #8 Status Active Problem Recommendation Dietitian Recommendations/Changes 1.) Advance diet as tolerated and medically able to Transitional with goal diet of Carbohydrate/Controlled/ Cardiac. 2.) If pt anticipated to remain on clear liquids greater than 24-48 hours, recommend consideration of parenteral nutrition support to supplement clear liquids especially given extended NPO prior to clear liquids started yesterday--consult RDN as indicated for order and management of nutrition support. 3.) Consistency of solids/ liquids as per TECHNICAL ADMINISTRATOR. 4.) Will add 240ml ensure clear TID while on clear liquid diet. 5.) Additional ONS as needed as diet advances from clears. Lab / Micro Data Result Diagrams: 03/27/21 06:40 03/27/21 06:40 Labs: Laboratory Results - last 24 hr 03/26/21 17:30: POC Glucose 181 H 03/26/21 21:34: POC Glucose 161 H 03/27/21 06:40: WBC 15.4 H, RBC 3.06 L, Hgb 8.4 L, Hct 27.6 L, MCV 90.2, MCH 27.5, MCHC 30.4 L, RDW Std Deviation 49.5 H, RDW Coeff of Sean 15.0 H, Plt Count 356, MPV 10.6, Immature Gran % (Auto) 0.800, Neut % (Auto) 84.2 H, Lymph % (Auto) 7.2 L, [place] % (Auto) 5.4, Eos % (Auto) 2.1, Baso % (Auto) 0.3, Absolute Neuts (auto) 13.0 H, Absolute Lymphs (auto) 1.11, Nucleated RBC % 0 03/27/21 06:40: Sodium 140, Potassium 3.6, Chloride 107, Carbon Dioxide 27.0, Anion Gap 6, BUN 14, Creatinine 0.68 L, Estim Creat Clear Calc 50.98, Est GFR (MDRD) Af Amer 144, Est GFR (MDRD) Non-Af 119, BUN/Creatinine Ratio 20.5 H, Glucose 180 H, Calcium 8.3 L 03/27/21 06:43: POC Glucose 183 H 03/27/21 11:42: POC Glucose 154 H Radiology Impression Abdomen/Pelvis CT 03/27/21 07:13 IMPRESSION: Post surgical changes from colonic resection with a left lower quadrant colostomy in place. No bowel obstruction or inflammation. Small amount of free fluid and free air in the pelvis, consistent with the patient''s postoperative state. Resolution of the previously seen pelvic fluid collection. Thickening of the left abdominal rectus muscle adjacent to the colostomy site. This may be due to an intramuscular hematoma or abscess. Small bilateral pleural effusions with overlying atelectasis. Electronically Signed: Piotr Dobson MD at 9:54 EDT Tel , Service support ,
[2021-03-27 18:47] LABS: Bedside Glucose 160 mg/dL (70-110)
--- NOTE | 2021-03-27 20:19 | PCM.RX.CS ---
Consult Pharmacy has been consulted to manage selected antiobiotic: Vancomycin Type of Consult: New start Suspected Infection: Skin/Soft tissue Labs: Sodium 140 mmol/L (136-145) 03/27/21 06:40 Potassium 3.6 mmol/L (3.5-5.1) 03/27/21 06:40 Chloride 107 mmol/L (98-107) 03/27/21 06:40 Carbon Dioxide 27.0 mmol/L (21.0-32.0) 03/27/21 06:40 Anion Gap 6 (5-15) 03/27/21 06:40 BUN 14 mg/dL (7-18) 03/27/21 06:40 Creatinine 0.68 mg/dL (0.70-1.30) L 03/27/21 06:40 Est GFR (MDRD) Af Amer 144 mL/min (>60) 03/27/21 06:40 Est GFR (MDRD) Non-Af 119 mL/min (>60) 03/27/21 06:40 BUN/Creatinine Ratio 20.5 RATIO (10-20) H 03/27/21 06:40 Glucose 180 mg/dL (74-106) H 03/27/21 06:40 Microbiology: Microbiology 03/19/21 10:50 Wound Drainage - Other Gram Stain - Final 03/19/21 10:50 Wound Drainage - Other Wound Culture - Final Strep anginosus Escherichia coli 03/19/21 10:50 Wound Drainage - Other Anaerobic Culture - Final Prevotella nanceiensis 03/19/21 07:30 Stool Enteric Bacteriology - Final 03/19/21 07:30 Stool C. difficile DNA Amplification - Final 03/18/21 02:34 Mucosa - Nasopharyngeal SARS-CoV-2 Antigen (Rapid) - Final Goal Trough: 15-20 mcg/mL Pharmacy Plan for Drug Dosing: NEW START IV VANCOMYCIN Consulting Physician: Dr. Sanabria Indication: SSTI Goal Trough: 15-20 SrCr: 0.68 CrCl: 75 (Using AdjBW 73.3kg) Comments: Loading dose 2g IV x1 ordered and given 03/27/21 @1826 Vancomcyin Dose: 1250mg IV Q12hr to start 03/28/21 @0600 Pending Level: 03/29/21 @0530, prior to 4th total dose per protocol. Pharmacy Service will continue to monitor and adjust dosing as required.
[2021-03-27] MEDS: Atorvastatin Calcium 40 MG Tablet PO (21:15)
[2021-03-27 22:41] LABS: Bedside Glucose 162 mg/dL (70-110)
[2021-03-28] VITALS (16 sets, daily range): BP systolic 134–178; BP diastolic 54–86; PULSE 66–88; RESP 16–20; TEMP 36.6–37.2; O2SAT 94–98
--- NOTE | 2021-03-28 01:00 | NURSING ---
pt found in bed with his colostomy ripped off, abd dressing pulled off with the packing removed. pt confused and didnt know what he did. it took 3 rns to clean and bath the pt, dressings changed and new colostomy appliance placed.
[2021-03-28] MEDS: Ipratropium/Albuterol Sulfate 3 ML AMPUL.NEB INHALATION ×4 (07:13→19:23)
--- NOTE | 2021-03-28 07:17 | PN.SURG_ITS ---
Subjective Subjective According to the nurse the patient became incredibly confused overnight and pulled off his colostomy bag and there was stool leaking into his wound. Objective Data Objective Data Vital Signs: Vital Signs Temp Pulse Resp BP Pulse Ox 98.5 F 66 16 175/86 H 97 03/28/21 02:00 03/28/21 06:38 03/28/21 02:00 03/28/21 02:00 03/28/21 02:00 Oxygen Flow Rate (L/min) 2 Oxygen Delivery Method Nasal Cannula Weight: 208 lb 15.971 oz Body Mass Index (BMI) 36.6 Intake & Output: Intake and Output for Last 24 Hours 03/26/21 03/27/21 03/28/21 23:59 23:59 23:59 Intake Total 1550 / 1850 1536.5 / 1536.5 50 / 50 Output Total 450 / 750 1150 / 1150 Balance 1100 / 1100 386.5 / 386.5 50 / 50 Medical Nutrition Assessment Dietitian: Nutrition Therapy Diagnosis Start: 03/18/21 09:59 Freq: Status: Active Protocol: Document 03/25/21 12:27 RMA (Rec: 03/25/21 12:29 RMA [id number]) Nutrition Malnutrition Evidence of Malnutrition Exists No Intake Problem Inadequate Oral Intake Etiology r/t altered GI function Signs/Symptoms as evidenced by clear liquid diet x day #2 after 6 days NPO Status Active Problem Clinical Problem Altered GI Function Etiology related to inflammation/ diverticulitis Signs/Symptoms as evidenced by need for sigmoid colectomy w/ end colostomy and Clear liquid diet/NPO x day #8 Status Active Problem Recommendation Dietitian Recommendations/Changes 1.) Advance diet as tolerated and medically able to Transitional with goal diet of Carbohydrate/Controlled/ Cardiac. 2.) If pt anticipated to remain on clear liquids greater than 24-48 hours, recommend consideration of parenteral nutrition support to supplement clear liquids especially given extended NPO prior to clear liquids started yesterday--consult RDN as indicated for order and management of nutrition support. 3.) Consistency of solids/ liquids as per SEMICONDUCTOR LAB TECHNICIAN. 4.) Will add 240ml ensure clear TID while on clear liquid diet. 5.) Additional ONS as needed as diet advances from clears. Lab / Micro Data Result Diagrams: 03/27/21 06:40 03/27/21 06:40 Labs: Laboratory Results - last 24 hr 03/27/21 06:40: Sodium 140, Potassium 3.6, Chloride 107, Carbon Dioxide 27.0, Anion Gap 6, BUN 14, Creatinine 0.68 L, Estim Creat Clear Calc 50.98, Est GFR (MDRD) Af Amer 144, Est GFR (MDRD) Non-Af 119, BUN/Creatinine Ratio 20.5 H, Glucose 180 H, Calcium 8.3 L 03/27/21 11:42: POC Glucose 154 H 03/27/21 16:37: POC Glucose 160 H 03/27/21 21:48: POC Glucose 162 H Micro: Microbiology 03/19/21 10:50 Wound Drainage - Other Gram Stain - Final 03/19/21 10:50 Wound Drainage - Other Wound Culture - Final Strep anginosus Escherichia coli 03/19/21 10:50 Wound Drainage - Other Anaerobic Culture - Final Prevotella nanceiensis 03/19/21 07:30 Stool Enteric Bacteriology - Final 03/19/21 07:30 Stool C. difficile DNA Amplification - Final 03/18/21 02:34 Mucosa - Nasopharyngeal SARS-CoV-2 Antigen (Rapid) - Final Radiography Diagnostic Testing: Radiology Impression Abdomen/Pelvis CT 03/27/21 07:13 IMPRESSION: Post surgical changes from colonic resection with a left lower quadrant colostomy in place. No bowel obstruction or inflammation. Small amount of free fluid and free air in the pelvis, consistent with the patient''s postoperative state. Resolution of the previously seen pelvic fluid collection. Thickening of the left abdominal rectus muscle adjacent to the colostomy site. This may be due to an intramuscular hematoma or abscess. Small bilateral pleural effusions with overlying atelectasis. Electronically Signed: Piotr Dobson MD at 9:54 EDT Tel , Service support , Physical Exam Const no apparent distress Resp normal respiratory effort Cardio regular rate GI soft to palpation and non-tender Assessment & Plan Assessment/Plan (1) Deep incisional surgical site infection: (2) Perforated sigmoid colon: PLAN: The patient became confused and pulled his colostomy bag off causing soilage of his midline wound which is being packed. Continue wet-to-dry dressings. The nurse noted less purulence today. CT yesterday did not show any deep fluid collection only there was a possible swelling of the left rectus muscle which is expected after colostomy. Awaiting morning labs. Continue regular diet. ID is on board as well today. I discussed wound VAC with wound nurse and she is placing a wound VAC on Thursday. Willy Cervantes MD Pager: [facility] [address] [place] [address], [address] [place] [address] Office:
--- NOTE | 2021-03-28 07:17 | NURSING ---
colostomy bag changed d/t leaking
[2021-03-28 07:22] LABS: Absolute Lymphocyte Count 1.06 X10^3/uL (0.83-4.51); Absolute Neutrophil Count 10.7 X10^3/uL (2.0-7.7); Basophil# 0.04 X10^3/uL; Basophil% 0.3 % (0-1); Eosinophil# 0.29 X10^3/uL; Eosinophils% 2.2 % (0-5); Hematocrit 26.7 % (40-54); Hemoglobin 8.2 g/dL (13.0-16.5); Lymphocyte # 1.06 X10^3/ul (0.83-4.51); Lymphocyte % 8.1 % (19-41); Mean Corp Hgb Conc 30.7 g/dL (32-36); Mean Corpuscular Hgb 27.7 pg (27.0-32.0); Mean Corpuscular Volume 90.2 fL (80-94); Mean Platelet Vol. 10.3 fl (6.2-12.0); Monocyte# 0.87 X10^3/uL; Monocyte% 6.7 % (0-10); NRBC Flagged by Analyzer 0 % (0-5); Platelet Count 334 K/mm3 (150-450); RBC Distribution Width CV 14.7 % (11.6-14.6); RBC Distribution Width SD 48.5 fl (35.1-43.9); Red Blood Count 2.96 M/mm3 (4.6-6.2); White Blood Count 13.1 K/mm3 (4.4-11.0)
[2021-03-28 07:26] LABS: Bedside Glucose 130 mg/dL (70-110)
[2021-03-28 07:54] LABS: Anion Gap 7 (5-15); BUN 12 mg/dL (7-18); Calcium,Total 7.9 mg/dL (8.5-10.1); Chloride 106 mmol/L (98-107); EST Glomerular Filtration Rate 138 mL/min (>60); Est Glom Filt Rate - Afr Amer 167 mL/min (>60); Estimated Creatinine Clearance 50.98 ml/min; Glucose 148 mg/dL (74-106); Potassium 3.5 mmol/L (3.5-5.1); Sodium Level 139 mmol/L (136-145)
[2021-03-28] MEDS: hydrALAZINE 20 MG/ML Vial 10 MG IV ×2 (08:06→23:59)
[2021-03-28] MEDS: Aspirin E.C. 81 MG Tablet PO (08:07)
[2021-03-28] MEDS: Lisinopril 20 MG Tablet PO (08:44)
[2021-03-28] MEDS: Pantoprazole Sodium 40 MG Tablet PO (08:44)
[2021-03-28 11:31] LABS: Bedside Glucose 139 mg/dL (70-110)
--- NOTE | 2021-03-28 12:31 | PCM.PN.HOSP ---
Documented by User: Siobhan Lange CUSTODY ASSISTANT, CUSTODY ASSISTANT-C 03/28/21 13:03 Subjective Subjective Patient seen and examined. Had a lengthy discussion with patient including plan of care. Patient states he wants to go home and . States he is dying and wants to go home and be comfortable and spent time with his family. Amendable to home hospice consult. Objective Data Objective Data Vital Signs: Vital Signs Temp Pulse Resp BP Pulse Ox 99.0 F 72 18 134/54 H 95 03/28/21 08:43 03/28/21 08:43 03/28/21 08:43 03/28/21 08:43 03/28/21 08:43 Oxygen Flow Rate (L/min) 2 Oxygen Delivery Method Nasal Cannula Weight: 208 lb 15.971 oz Body Mass Index (BMI) 36.6 Intake & Output: Intake and Output for Last 24 Hours 03/26/21 03/27/21 03/28/21 23:59 23:59 23:59 Intake Total 1550 / 1850 1536.5 / 1536.5 375 / 375 Output Total 450 / 750 1150 / 1150 Balance 1100 / 1100 386.5 / 386.5 375 / 375 Medical Nutrition Assessment Dietitian: Nutrition Therapy Diagnosis Start: 03/18/21 09:59 Freq: Status: Active Protocol: Document 03/25/21 12:27 RMA (Rec: 03/25/21 12:29 RMA [id number]) Nutrition Malnutrition Evidence of Malnutrition Exists No Intake Problem Inadequate Oral Intake Etiology r/t altered GI function Signs/Symptoms as evidenced by clear liquid diet x day #2 after 6 days NPO Status Active Problem Clinical Problem Altered GI Function Etiology related to inflammation/ diverticulitis Signs/Symptoms as evidenced by need for sigmoid colectomy w/ end colostomy and Clear liquid diet/NPO x day #8 Status Active Problem Recommendation Dietitian Recommendations/Changes 1.) Advance diet as tolerated and medically able to Transitional with goal diet of Carbohydrate/Controlled/ Cardiac. 2.) If pt anticipated to remain on clear liquids greater than 24-48 hours, recommend consideration of parenteral nutrition support to supplement clear liquids especially given extended NPO prior to clear liquids started yesterday--consult RDN as indicated for order and management of nutrition support. 3.) Consistency of solids/ liquids as per MANAGER CORPORATE RESPONSIBILITY. 4.) Will add 240ml ensure clear TID while on clear liquid diet. 5.) Additional ONS as needed as diet advances from clears. Lab / Micro Data Result Diagrams: 03/28/21 07:05 03/28/21 07:05 Labs: Laboratory Results - last 24 hr 03/27/21 16:37: POC Glucose 160 H 03/27/21 21:48: POC Glucose 162 H 03/28/21 06:40: POC Glucose 130 H 03/28/21 07:05: WBC 13.1 H, RBC 2.96 L, Hgb 8.2 L, Hct 26.7 L, MCV 90.2, MCH 27.7, MCHC 30.7 L, RDW Std Deviation 48.5 H, RDW Coeff of Sean 14.7 H, Plt Count 334, MPV 10.3, Immature Gran % (Auto) 0.700, Neut % (Auto) 82.0 H, Lymph % (Auto) 8.1 L, [place] % (Auto) 6.7, Eos % (Auto) 2.2, Baso % (Auto) 0.3, Absolute Neuts (auto) 10.7 H, Absolute Lymphs (auto) 1.06, Nucleated RBC % 0 03/28/21 07:05: Sodium 139, Potassium 3.5, Chloride 106, Carbon Dioxide 26.0, Anion Gap 7, BUN 12, Creatinine 0.60 L, Estim Creat Clear Calc 50.98, Est GFR (MDRD) Af Amer 167, Est GFR (MDRD) Non-Af 138, BUN/Creatinine Ratio 20.0, Glucose 148 H, Calcium 7.9 L 03/28/21 11:26: POC Glucose 139 H Micro: Microbiology 03/19/21 10:50 Wound Drainage - Other Gram Stain - Final 03/19/21 10:50 Wound Drainage - Other Wound Culture - Final Strep anginosus Escherichia coli 03/19/21 10:50 Wound Drainage - Other Anaerobic Culture - Final Prevotella nanceiensis 03/19/21 07:30 Stool Enteric Bacteriology - Final 03/19/21 07:30 Stool C. difficile DNA Amplification - Final 03/18/21 02:34 Mucosa - Nasopharyngeal SARS-CoV-2 Antigen (Rapid) - Final Physical Exam Const alert, oriented x3 and no apparent distress Orientation / Consciousness: awake, oriented to person, oriented to place and oriented to time HEENT normocephalic and moist oral mucous membranes Eyes PERRL, EOMs intact bilaterally and conjunctivae normal Neck no lymphadenopathy Resp clear to auscultation bilaterally Auscultation: diminished lung sounds Cardio regular rate, regular rhythm and no murmurs Peripheral Pulses: pulses 2+ throughout GI normal to inspection, nondistended, normoactive bowel sounds, non-tender and non-distended GI Narrative: Colostomy bag intact Extremity normal to inspection Skin no rashes or lesions noted Skin Narrative: Midline wound, dressing intact Lesions: no lesions Rashes: no rashes Trauma: no lacerations or abrasions Neuro CN's II-XII intact bilaterally, no focal motor deficits, no sensory deficits noted and deep tendon reflexes 2+ bilaterally Psych mental status grossly normal and affect normal Assessment & Plan Assessment/Plan (1) Perforated sigmoid colon: PLAN: 1. Sigmoid diverticulitis with perforation, status post sigmoid colectomy with end colostomy and Presley's procedure-on IV vancomycin and IV Zosyn. ID and surgery following. Wound RN consult. Plan for wound VAC placement. Wound drainage growing strep, E. coli and Prevotella. 2. Suspected colon cancer-noted 5 cm mass. Will need follow-up with oncology as outpatient. 3. Acute ischemic stroke involving the left middle cerebral artery-continue aspirin, statin. PT/OT/ST. Rehab at discharge if patient is amendable, however considering home with hospice. May resume anticoagulation 04/03/2021. Preferably with Eliquis. 4. Acute heart failure with preserved ejection fraction-echocardiogram with EF 55 to 60%. Moderate pulmonary hypertension. Further IV Lasix discontinued. 5. Carotid artery stenosis-has followed with Dr. Bahtia in the past, not appropriate for CEA. Chronic left carotid occlusion, right greater than 70% stenosis. Similar to previous ultrasound 03/2020. 6. Paroxysmal atrial fibrillation-Coumadin discontinued on admission. 7. Hypertension-stable, continue lisinopril. Resume home amlodipine regimen. 8. Hyperlipidemia-continue statin. 9. Type 2 diabetes eursctmt-[id number] with sliding scale insulin. 10. Mild aortic stenosis-noted on echo 11/21/2020. 11. CAD-on aspirin, Plavix on hold. Continue statin. DVT prophylaxis-SCDs, pharmacologic prophylaxis when okay per surgery Discharge: Rehab versus home with hospice. Patient requesting home hospice consult. Family discussion pending. This patient was seen by ALEX Brewer under the supervision of Dr. Ugalde. Documented by User: Dr. Faizan Ugalde MD 03/28/21 13:37 Objective Data Lab / Micro Data Result Diagrams: 03/28/21 07:05 03/28/21 07:05 Assessment & Plan Addt'l Comments This patient was seen in conjunction with ALEX Brewer . I have independently interviewed and examined the patient and reviewed pertinent historical, laboratory, and other data. Please refer to ALEX Brewer note for details of this patient's presentation, findings, and recommendations. I have reviewed ALEX Brewer note and concur with documented findings. In brief, patient is a 80-year-old gentleman initially admitted with abdominal pain later found to have sigmoid diverticulitis with perforation patient underwent sigmoid colectomy with end colostomy and Presley's procedure. Hospital stay complicated by development of acute left middle cerebral artery ischemic stroke 03/26/2021; patient scheduled to undergo wound VAC placement 03/27/2021. Patient continues to experience copious purulent discharge from his incision. CT of the abdomen obtained demonstrated thickening of the left abdominal rectus muscle adjacent to the colostomy site consistent with abscess. Patient remains on broad-spectrum antibiotic therapy consultation placed infectious disease 03/28/2021; wound VAC placement scheduled tentatively for 08/01/2021. Patient was reported to be delirious during the night apparently pulling on his colostomy bag Physical Examination: GENERAL: In no distress HEENT: Atraumatic; EYES; Anicteric, Normal Conjunctiva NECK; supple, normal thyroid, RESPIRATORY: Diminished to auscultation PSYCH; Flat affect Assessment: 1. 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 Postop wound infection 3. Acute ischemic stroke involving the left middle cerebral artery 4. Carotid artery stenosis 5. Paroxysmal A. fib 6. Essential hypertension 7. Diabetes mellitus type 2 8. Dyslipidemia 9. DVT prophylaxis 10. Acute encephalopathy possibly metabolic encephalopathy from his underlying wound infection Recommendations: 1. I have discussed the results of my overview and impressions with the patient 2. Options for management were reviewed Charges/Coding Visit Charges Inpatient E&M: 78841 Subs Hosp L3
--- NOTE | 2021-03-28 12:55 | NURSING ---
This RN was called by Yfn, field secretary at 12:34 and informed that pt had a visitor that would like to talk. This visitor was not the pt's according to operations team leader. This RN went into room at 12:40 and there was no family in room and lobby was empty. Nobody listed besides on pt's contacts. updated this AM via phone.
--- NOTE | 2021-03-28 13:42 | CASEMGMT ---
REFRIGERATION REPAIR SUPERVISOR spoke with patient this am and he told her he is done and he does not want anymore treatment. SW met with patient. Introduced self and role at [facility]. SW broached subject of Hospice with patient. His speech is very difficult to understand. He explained that he is tired of everything they keep doing. He doesn't want anymore and he wants to go home. SW asked if he spoke with his family about his feelings. He has not. SW explained how Hospice works. SW told him SW will fax a referral and they will come here to talk with him. He wanted to go home and then have Hospice see him at home. SW told him that the hospital will not discharge him right now as he is not medically ready unless he is on Hospice. He was then in agreement with SW making a referral to Hospice. SOL asked if SW could call his and/or son. He told SW to call both, but call his son first. SW tried to call patient's son, but he was not available so SW left a voice mail. SW tried again and got his voice mail. Karen Hart SUMATRA OPENER [facility]CO
--- NOTE | 2021-03-28 17:01 | CASEMGMT ---
Patient's son came to [facility]. SW spoke with him alone at first and let him know patient is done with his medical care and wants to go on Hospice. Patient's son said he knows his dad is done, but he is not safe to go home. He said patient's is worse off than he is and patient normally cares for her. He won't be able to care for himself let alone care for her. He said if patient wants Hospice that is fine, but he is not safe for home. SW and patient's son then went to patient's room to talk with him. SW again explained Hospice. He said he is going home tomorrow. SW told him the physicians will not discharge him unless he is on Hospice as he is not medically ready. Patient was insistent that he is going home tomorrow. He will go home and they will see how things go and will worry about Hospice then. SW repeated to him that the doctor's are not going to discharge him right now as he is not medically ready and he would have to be on Hospice before he left the hospital. He thinks he will go home and get a fresh start. Despite SW reminding him that he is not safe to go home as there is no one to care for him. He is physically weak, he has a wound, and he has a new colostomy. Patient was starting to get agitated, raising his voice to SW and his son. He would not reason or listen to anything. He was just set on he is leaving tomorrow. Patient's son was on the phone with patient's who was upset with patient. She confirmed he is not safe for home as there is no one to be there to care for him. It was decided that we will leave patient alone for now as he is too agitated to think clearly and we are not getting anywhere. Patient's son said bye to him and left. SW let WILLIAN Mccann know the situation. Karen LARA
[2021-03-28 17:15] LABS: Bedside Glucose 148 mg/dL (70-110)
[2021-03-28] MEDS: Atorvastatin Calcium 40 MG Tablet PO (21:13)
[2021-03-28 21:41] LABS: Bedside Glucose 142 mg/dL (70-110)
[2021-03-28] MEDS: Acetaminophen 325 MG Tablet 650 MG PO (23:22)
[2021-03-28] MEDS: MELATONIN 3 MG TABLET PO (23:23)
[2021-03-29] VITALS (7 sets, daily range): BP systolic 153–160; BP diastolic 63–85; PULSE 74–79; RESP 16–19; TEMP 36.3–36.4; O2SAT 96–97
[2021-03-29] MEDS: Ipratropium/Albuterol Sulfate 3 ML AMPUL.NEB INHALATION ×2 (06:51→11:13)
[2021-03-29 06:56] LABS: Bedside Glucose 134 mg/dL (70-110)
[2021-03-29 06:59] LABS: Absolute Lymphocyte Count 1.25 X10^3/uL (0.83-4.51); Absolute Neutrophil Count 8.8 X10^3/uL (2.0-7.7); Basophil# 0.03 X10^3/uL; Basophil% 0.3 % (0-1); Eosinophil# 0.26 X10^3/uL; Eosinophils% 2.3 % (0-5); Hematocrit 27.6 % (40-54); Hemoglobin 8.3 g/dL (13.0-16.5); Lymphocyte # 1.25 X10^3/ul (0.83-4.51); Lymphocyte % 11.1 % (19-41); Mean Corp Hgb Conc 30.1 g/dL (32-36); Mean Corpuscular Hgb 27.4 pg (27.0-32.0); Mean Corpuscular Volume 91.1 fL (80-94); Mean Platelet Vol. 11.8 fl (6.2-12.0); Monocyte# 0.94 X10^3/uL; Monocyte% 8.3 % (0-10); NRBC Flagged by Analyzer 0 % (0-5); Neutrophil # 8.75 X10^3/uL (2.7-7.7); Neutrophil % 77.4 % (47-70); POSITIVE COUNT YES; Platelet Count 326 K/mm3 (150-450); RBC Distribution Width CV 14.8 % (11.6-14.6); Red Blood Count 3.03 M/mm3 (4.6-6.2); White Blood Count 11.3 K/mm3 (4.4-11.0)
[2021-03-29 07:22] LABS: Vancomycin, Trough Level 17.3 ug/mL (5.0-15.0)
[2021-03-29 07:33] LABS: Anion Gap 10 (5-15); BUN 9 mg/dL (7-18); BUN/Creat Ratio 13.9 RATIO (10-20); Calcium,Total 8.1 mg/dL (8.5-10.1); Chloride 106 mmol/L (98-107); Creatinine, Serum 0.65 mg/dL (0.70-1.30); EST Glomerular Filtration Rate 127 mL/min (>60); Est Glom Filt Rate - Afr Amer 153 mL/min (>60); Estimated Creatinine Clearance 50.98 ml/min; Glucose 128 mg/dL (74-106); Potassium 3.5 mmol/L (3.5-5.1); Sodium Level 138 mmol/L (136-145)
--- NOTE | 2021-03-29 07:43 | PN.SURG_ITS ---
Subjective Subjective No issues overnight Objective Data Objective Data Vital Signs: Vital Signs Temp Pulse Resp BP Pulse Ox 97.5 F L 78 16 160/63 H 96 03/29/21 05:37 03/29/21 06:52 03/29/21 06:52 03/29/21 05:37 03/29/21 06:52 Oxygen Flow Rate (L/min) 2 Oxygen Delivery Method Room Air Weight: 207 lb 10.807 oz Body Mass Index (BMI) 36.6 Intake & Output: Intake and Output for Last 24 Hours 03/27/21 03/28/21 03/29/21 23:59 23:59 23:59 Intake Total 1536.5 / 1536.5 1140 / 1140 290 / 290 Output Total 1150 / 1150 450 / 450 300 / 300 Balance 386.5 / 386.5 690 / 690 -10 / -10 Medical Nutrition Assessment Dietitian: Nutrition Therapy Diagnosis Start: 03/18/21 09:59 Freq: Status: Active Protocol: Document 03/28/21 15:34 AG (Rec: 03/28/21 15:34 [id number]) Nutrition Malnutrition Evidence of Malnutrition Exists No Intake Problem Inadequate Oral Intake Etiology r/t altered GI function, decreased appetite Signs/Symptoms as evidenced by estimated PO intake meeting <75% of estimated nutritional needs x 2 weeks Status Active Problem Clinical Problem Altered GI Function Etiology - Signs/Symptoms - Status Resolved Problem Recommendation Dietitian Recommendations/Changes Continue 2000 calorie controlled diet as tolerated, consistency per [employer]. Continue 240mL ensure clear w/ meals. Lab / Micro Data Result Diagrams: 03/29/21 05:30 03/29/21 05:30 Labs: Laboratory Results - last 24 hr 03/28/21 07:05: Sodium 139, Potassium 3.5, Chloride 106, Carbon Dioxide 26.0, Anion Gap 7, BUN 12, Creatinine 0.60 L, Estim Creat Clear Calc 50.98, Est GFR (MDRD) Af Amer 167, Est GFR (MDRD) Non-Af 138, BUN/Creatinine Ratio 20.0, Glucose 148 H, Calcium 7.9 L 03/28/21 11:26: POC Glucose 139 H 03/28/21 16:51: POC Glucose 148 H 03/28/21 21:10: POC Glucose 142 H 03/29/21 05:30: Vancomycin Trough 17.3 H 03/29/21 05:30: WBC 11.3 H, RBC 3.03 L, Hgb 8.3 L, Hct 27.6 L, MCV 91.1, MCH 27.4, MCHC 30.1 L, RDW Std Deviation 49.0 H, RDW Coeff of Sean 14.8 H, Plt Count 326, MPV 11.8, Immature Gran % (Auto) 0.600, Neut % (Auto) 77.4 H, Lymph % (Auto) 11.1 L, [place] % (Auto) 8.3, Eos % (Auto) 2.3, Baso % (Auto) 0.3, Absolute Neuts (auto) 8.8 H, Absolute Lymphs (auto) 1.25, Nucleated RBC % 0 03/29/21 05:30: Sodium 138, Potassium 3.5, Chloride 106, Carbon Dioxide 22.0, Anion Gap 10, BUN 9, Creatinine 0.65 L, Estim Creat Clear Calc 50.98, Est GFR (MDRD) Af Amer 153, Est GFR (MDRD) Non-Af 127, BUN/Creatinine Ratio 13.9, Glucose 128 H, Calcium 8.1 L 03/29/21 05:36: POC Glucose 134 H Micro: Microbiology 03/19/21 10:50 Wound Drainage - Other Gram Stain - Final 03/19/21 10:50 Wound Drainage - Other Wound Culture - Final Strep anginosus Escherichia coli 03/19/21 10:50 Wound Drainage - Other Anaerobic Culture - Final Prevotella nanceiensis 03/19/21 07:30 Stool Enteric Bacteriology - Final 03/19/21 07:30 Stool C. difficile DNA Amplification - Final 03/18/21 02:34 Mucosa - Nasopharyngeal SARS-CoV-2 Antigen (Rapid) - Final Physical Exam Const no apparent distress Resp normal respiratory effort Cardio regular rate GI soft to palpation and non-tender Assessment & Plan Assessment/Plan (1) Colon cancer: QUALIFIERS: Colon location: sigmoid Qualified Code(s): C18.7 - Malignant neoplasm of sigmoid colon (2) Perforated sigmoid colon: PLAN: Patient had no issues overnight and continues to tolerate regular diet with good stool output. His wound is having less drainage and his white count is returning to normal. Continue wet-to-dry dressing changes and on Thursday the wound nurse is going to put a wound VAC on the midline wound. Continue antibiotics per ID. Diet as tolerated. Okay to resume therapeutic anticoagulation Willy Cervantes MD Pager: [facility] [address] [place] [address] [address] [place] [address] Office:
--- NOTE | 2021-03-29 10:01 | PCM.DC ---
Discharge Instructions Diet Discharge Diet: Low fat / Low cholesterol and Carb Control Diet Activity Discharge Activity: Return to Normal Activity Dressing / Incision Call your doctor if you observe: Fever of 101 or Higher, Shortness of breath, Dizziness and Chest pain Follow Up Care Test Results: Test results from this visit will be discussed in further detail at your follow-up appointment, if applicable. Discharge Plan Admission Admit Date/Time: 03/18/21 03:19 Primary Reason for Your Visit: Sigmoid diverticulitis with perforation Attending Provider: Faizan Ugalde Primary Care Provider: Yoon Alba NP Consulting Providers: Willy Cervantes ; Chan Corona ; Car Brown ; Laura Quiñonez APPLIED RESEARCH DIRECTOR ; Roger Sanabria Instructions Additional Instructions / Restrictions: Wound RN consult. Continue normal saline wet-to-dry dressing 3 times daily to abdominal wound. Cover with dry dressing. Wound VAC to be placed on Thursday. Will need referral to oncology at discharge. Discharge Orders/Prescriptions Prescriptions: New aspirin 81 mg Tablet,Delayed Release (Dr/Ec) 81 mg PO BREAKFAST Qty: 0 RF: 0 amoxicillin-pot clavulanate 875-125 mg Tablet 875 mg PO BID 5 Days Qty: 9 RF: 0 Continued acetaminophen [Tylenol] 325 mg tablet 650 mg PO DAILY RF: 0 cyanocobalamin (vit B-12) 100 mcg tablet 100 mcg tablet 100 mcg PO QDAY RF: 0 metformin 1,000 mg tablet 1,000 mg PO BID RF: 0 omega-3 fatty acids [Fish Oil Concentrate] 1,000 mg capsule 500 mg PO DAILY RF: 0 ferrous sulfate 324 mg (65 mg iron) tablet,delayed release (DR/EC) 324 mg PO BID RF: 0 multivitamin with folic acid 1 TABLET tablet 1 tab PO DAILY RF: 0 atorvastatin 80 mg tablet See Rx Instructions .ROUTE .COMPLEX RF: 0 lisinopril 20 mg Tablet 20 mg PO DAILY RF: 0 pantoprazole 40 mg Tablet,Delayed Release (Dr/Ec) 40 mg PO DAILY RF: 0 amlodipine 10 mg tablet 10 mg PO QDAY Qty: 90 RF: 3 Held warfarin 1 mg tablet 1 mg PO .COMPLEX Qty: 90 RF: 3 Hold Instructions: Resume on 04/03/21. Referrals / Follow Up: Willy Cervantes MD [STAFF PHYSICIAN] - In 1 Week Sulaiman Quintero MD [STAFF PHYSICIAN] - Within 1 Month Yoon Alba APPLIED RESEARCH DIRECTOR, APPLIED RESEARCH DIRECTOR-C [Primary Care Provider] - In 1 Week Disposition Disposition (needs filled in before D/C Order can be placed): Inpatient Rehab Unit/Facility
--- NOTE | 2021-03-29 10:11 | CASEMGMT ---
SOL spoke with physician and Nurse Practitioner and patient is in agreement with going to Inpatient Rehab. SOL called patient's son and left him a voice mail letting him know and also that patient will need clothes. SOL also called patient's and let her know the same. SOL called Tamie and let her know patient will be coming to rehab today. Karne LARA
--- NOTE | 2021-03-29 11:14 | PCM.DC.SUM ---
Documented by User: Siobhan Lange NP, [employer] DECORATOR-C 03/29/21 12:27 Providers Date of Admission: 03/18/21 Date of Discharge: 03/29/21 Primary Care Physician: ALEX Babcock Consultations 03/18/21 04:19 Consult: General Surgery Routine Consulting Provider: Willy Cervantes Reason for Consult: ? Perforated diverticulitis, developing abscess EMERGENT Consult: Yes MD Notified: Yes Date Notified: 03/18/21 Time Notified: 03:15 Method of Notification: discussed w/ ED, in perso 03/19/21 11:37 Consult: Extraction Operator / Pulmonary Medicine Routine Consulting Provider: [facility] Reason for Consult: intensive care EMERGENT Consult: No MD Notified: Yes Date Notified: 03/19/21 Time Notified: 11:37 Method of Notification: Text 03/19/21 11:40 Consult: Onc/Wound/qualitative executive researcher Routine Comment: Reason for Consult:: new colostomy 03/27/21 08:18 Consult: Infectious Disease Routine Consulting Provider: Roger Sanabria Reason for Consult: Refractory leukocytosis w/ purlulent drainage s/p colon resection EMERGENT Consult: No MD Notified: Yes Date Notified: 03/27/21 Time Notified: 08:18 Method of Notification: Text 03/28/21 11:45 Consult: Onc/Wound/qualitative executive researcher Routine Comment: Reason For Visit: ACUTE SEPSIS, PERFORATED DIVERTICULITIS SUSPECTED Diagnosis Discharge Diagnosis (1) Colon cancer: Status: Acute Code(s): C18.9 - Malignant neoplasm of colon, unspecified Qualifiers: Colon location: sigmoid Qualified Code(s): C18.7 - Malignant neoplasm of sigmoid colon (2) Perforated sigmoid colon: Status: Acute Code(s): K63.1 - Perforation of intestine (nontraumatic) Medications at Discharge Home Medications multivitamin with folic acid 1 tab PO DAILY 10/21/13 acetaminophen 325 mg tablet 650 mg PO DAILY tab 09/09/17 cyanocobalamin (vitamin B-12) 100 mcg tablet 100 mcg PO QDAY 09/09/17 metformin 1,000 mg tablet 1,000 mg PO BID 09/15/17 omega-3 fatty acids 1,000 mg capsule 500 mg PO DAILY 02/29/20 amlodipine 10 mg tablet 10 mg PO QDAY #90 tab 05/01/20 warfarin 1 mg tablet 1 mg PO .COMPLEX #90 tab 10/11/20 ferrous sulfate 324 mg (65 mg iron) tablet,delayed release 324 mg PO BID 11/13/20 atorvastatin See Rx Instructions .ROUTE .COMPLEX 03/07/21 lisinopril 20 mg PO DAILY 03/19/21 pantoprazole 40 mg PO DAILY 03/19/21 amoxicillin-pot clavulanate 875 mg PO BID 5 Days #9 tab 03/29/21 aspirin 81 mg PO BREAKFAST #0 tab 03/29/21 Hospital Course Operations - (sigmoid colectomy with end colostomy and Presley's procedure) Procedures 2-D Echocardiogram Summary of Care Provided Minutes Spent on Discharge: 35 Hospital Course: Patient is a 80-year-old male admitted 03/18/21 due to abdominal pain, nausea/vomiting. 1. 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 ID and surgery following. Wound RN consult. Plan for wound VAC placement on 04/01/2021. Wound drainage growing strep, E. coli and Prevotella. Continue wet-to-dry dressing changes 3 times daily pending wound VAC placement. Discharged on Augmentin 875 mg p.o. twice daily for 5 days. Rehab unit at discharge. 2. Colon adenocarcinoma-noted 5 cm mass. Pathology from sigmoid colon demonstrated adenocarcinoma. 1 out of 1 lymph node negative for metastatic carcinoma. Will need follow-up with oncology as outpatient. 3. Acute ischemic stroke involving the left middle cerebral artery-continue aspirin, statin. PT/OT/ST. Rehab at discharge. May resume anticoagulation 04/03/2021. Preferably with Eliquis. Previously on Coumadin. 4. Acute heart failure with preserved ejection fraction-echocardiogram with EF 55 to 60%. Moderate pulmonary hypertension. Further IV Lasix discontinued. 5. Carotid artery stenosis-has followed with Dr. Bhatia in the past, not appropriate for CEA. Chronic left carotid occlusion, right greater than 70% stenosis. Similar to previous ultrasound 03/2020. 6. Paroxysmal atrial fibrillation-Coumadin on hold as noted above. Plan to resume anticoagulation 04/03/2021. 7. Hypertension-stable, continue lisinopril. Resume home amlodipine regimen. 8. Hyperlipidemia-continue statin. 9. Type 2 diabetes [id number] with sliding scale insulin. Resume oral regimen at discharge. 10. Mild aortic stenosis-noted on echo 11/21/2020. 11. CAD-on aspirin, statin. Physical Exam Const alert, oriented x3 and no apparent distress Orientation / Consciousness: awake, oriented to person, oriented to place and oriented to time HEENT normocephalic and moist oral mucous membranes Eyes PERRL, EOMs intact bilaterally and conjunctivae normal Neck no lymphadenopathy Resp clear to auscultation bilaterally Auscultation: diminished lung sounds Cardio regular rate, regular rhythm and no murmurs Peripheral Pulses: pulses 2+ throughout GI normal to inspection, nondistended, normoactive bowel sounds, non-tender and non-distended GI Narrative: Colostomy bag intact Extremity normal to inspection Skin no rashes or lesions noted Skin Narrative: Midline wound, dressing intact Lesions: no lesions Rashes: no rashes Trauma: no lacerations or abrasions Neuro CN's II-XII intact bilaterally, no focal motor deficits, no sensory deficits noted and deep tendon reflexes 2+ bilaterally, mild right sided weakness, expressive aphasia. Psych mental status grossly normal and affect normal Patient seen and examined prior to discharge. Physical assessment as noted above. Patient is stable for discharge with follow up recommendations as noted above. This patient was seen by ALEX Brewer under the supervision of Dr. Ugalde. Medical Records Data Medical Nutrition Assessment Dietitian: Nutrition Therapy Diagnosis Start: 03/18/21 09:59 Freq: Status: Active Protocol: Document 03/28/21 15:34 (Rec: 03/28/21 15:34 [id number]) Nutrition Malnutrition Evidence of Malnutrition Exists No Intake Problem Inadequate Oral Intake Etiology r/t altered GI function, decreased appetite Signs/Symptoms as evidenced by estimated PO intake meeting <75% of estimated nutritional needs x 2 weeks Status Active Problem Clinical Problem Altered GI Function Etiology - Signs/Symptoms - Status Resolved Problem Recommendation Dietitian Recommendations/Changes Continue 1999 calorie controlled diet as tolerated, consistency per SLUBBER OPERATOR. Continue 240mL ensure clear w/ meals. Weight / BMI Weight Weight: 207 lb 10.807 oz Body Mass Index (BMI) 36.6 ABG / Lab / Microbiology Data Result Diagrams: 03/29/21 05:30 03/29/21 05:30 Laboratory: Laboratory Results - last 24 hr 03/28/21 11:26: POC Glucose 139 H 03/28/21 16:51: POC Glucose 148 H 03/28/21 21:10: POC Glucose 142 H 03/29/21 05:30: Vancomycin Trough 17.3 H 03/29/21 05:30: WBC 11.3 H, RBC 3.03 L, Hgb 8.3 L, Hct 27.6 L, MCV 91.1, MCH 27.4, MCHC 30.1 L, RDW Std Deviation 49.0 H, RDW Coeff of Sean 14.8 H, Plt Count 326, MPV 11.8, Immature Gran % (Auto) 0.600, Neut % (Auto) 77.4 H, Lymph % (Auto) 11.1 L, [place] % (Auto) 8.3, Eos % (Auto) 2.3, Baso % (Auto) 0.3, Absolute Neuts (auto) 8.8 H, Absolute Lymphs (auto) 1.25, Nucleated RBC % 0 03/29/21 05:30: Sodium 138, Potassium 3.5, Chloride 106, Carbon Dioxide 22.0, Anion Gap 10, BUN 9, Creatinine 0.65 L, Estim Creat Clear Calc 50.98, Est GFR (MDRD) Af Amer 153, Est GFR (MDRD) Non-Af 127, BUN/Creatinine Ratio 13.9, Glucose 128 H, Calcium 8.1 L 03/29/21 05:36: POC Glucose 134 H Microbiology: Microbiology 03/19/21 10:50 Wound Drainage - Other Gram Stain - Final 03/19/21 10:50 Wound Drainage - Other Wound Culture - Final Strep anginosus Escherichia coli 03/19/21 10:50 Wound Drainage - Other Anaerobic Culture - Final Prevotella nanceiensis 03/19/21 07:30 Stool Enteric Bacteriology - Final 03/19/21 07:30 Stool C. difficile DNA Amplification - Final 03/18/21 02:34 Mucosa - Nasopharyngeal SARS-CoV-2 Antigen (Rapid) - Final D/C Instructions Discharge Diet: Low fat / Low cholesterol and Carb Control Diet Call your doctor if you observe: Fever of 101 or Higher, Shortness of breath, Dizziness and Chest pain Meaningful Use Info Meaningful Use Diagnoses (Choose all that apply): Ischemic CVA CVA Therapy Assessed for PT,OT and/or ST?: Yes Ischemic Stroke Antithrombotic order at d/c?: Yes Dx of Atrial fib/flutter?: Yes Anticoagulant at discharge?: No Reason anticoagulant not ordered: Medical Contraindication (anticoagulation on hold until 04/03/21) Statins at discharge?: Yes Primary Dx Acute Ischemic CVA?: Yes IV tPA ordered during stay?: No Reason IV t-PA not ordered: Medical Contraindication Discharge Plan Admission Admit Date/Time: 03/18/21 03:19 Primary Reason for Your Visit: Sigmoid diverticulitis with perforation Attending Provider: Faizan Ugalde Primary Care Provider: Yoon Alba NP Consulting Providers: Willy Cervantes ; Chan Corona ; Car Brown ; Laura Quiñonez NP ; Roger Sanabria Instructions Additional Instructions / Restrictions: Wound RN consult. Continue normal saline wet-to-dry dressing 3 times daily to abdominal wound. Cover with dry dressing. Wound VAC to be placed on Thursday. Will need referral to oncology at discharge. Discharge Orders/Prescriptions Prescriptions: New aspirin 81 mg Tablet,Delayed Release (Dr/Ec) 81 mg PO BREAKFAST Qty: 0 RF: 0 amoxicillin-pot clavulanate 875-125 mg Tablet 875 mg PO BID 5 Days Qty: 9 RF: 0 Continued acetaminophen [Tylenol] 325 mg tablet 650 mg PO DAILY RF: 0 cyanocobalamin (vit B-12) 100 mcg tablet 100 mcg tablet 100 mcg PO QDAY RF: 0 metformin 1,000 mg tablet 1,000 mg PO BID RF: 0 omega-3 fatty acids [Fish Oil Concentrate] 1,000 mg capsule 500 mg PO DAILY RF: 0 ferrous sulfate 324 mg (65 mg iron) tablet,delayed release (DR/EC) 324 mg PO BID RF: 0 multivitamin with folic acid 1 TABLET tablet 1 tab PO DAILY RF: 0 atorvastatin 80 mg tablet See Rx Instructions .ROUTE .COMPLEX RF: 0 lisinopril 20 mg Tablet 20 mg PO DAILY RF: 0 pantoprazole 40 mg Tablet,Delayed Release (Dr/Ec) 40 mg PO DAILY RF: 0 amlodipine 10 mg tablet 10 mg PO QDAY Qty: 90 RF: 3 Held warfarin 1 mg tablet 1 mg PO .COMPLEX Qty: 90 RF: 3 Hold Instructions: Resume on 04/03/21. Referrals / Follow Up: Willy Cervantes MD [STAFF PHYSICIAN] - In 1 Week Sulaiman Quintero MD [STAFF PHYSICIAN] - Within 1 Month Yoon Alba NP, [employer]ORATOR-C [Primary Care Provider] - In 1 Week Disposition Disposition (needs filled in before D/C Order can be placed): Inpatient Rehab Unit/Facility Documented by User: Dr. Faizan Ugalde MD 03/29/21 12:43 Providers Date of Admission: 03/18/21 Reason For Visit: ACUTE SEPSIS, PERFORATED DIVERTICULITIS SUSPECTED Medications at Discharge Home Medications multivitamin with folic acid 1 tab PO DAILY 10/21/13 acetaminophen 325 mg tablet 650 mg PO DAILY tab 09/09/17 cyanocobalamin (vitamin B-12) 100 mcg tablet 100 mcg PO QDAY 09/09/17 metformin 1,000 mg tablet 1,000 mg PO BID 09/15/17 omega-3 fatty acids 1,000 mg capsule 500 mg PO DAILY 02/29/20 amlodipine 10 mg tablet 10 mg PO QDAY #90 tab 05/01/20 warfarin 1 mg tablet 1 mg PO .COMPLEX #90 tab 10/11/20 ferrous sulfate 324 mg (65 mg iron) tablet,delayed release 324 mg PO BID 11/13/20 atorvastatin See Rx Instructions .ROUTE .COMPLEX 03/07/21 lisinopril 20 mg PO DAILY 03/19/21 pantoprazole 40 mg PO DAILY 03/19/21 amoxicillin-pot clavulanate 875 mg PO BID 5 Days #9 tab 03/29/21 aspirin 81 mg PO BREAKFAST #0 tab 03/29/21 Hospital Course Operations - (sigmoid colectomy with end colostomy and Presley's procedure) Summary of Care Provided Minutes Spent on Discharge: 35 Hospital Course: This patient was seen in conjunction with ALEX Brewer . I have independently interviewed and examined the patient and reviewed pertinent historical, laboratory, and other data. Please refer to ALEX Brewer note for details of this patient's presentation, findings, and recommendations. I have reviewed Siobhan Nazario, [employer] DECORATOR-C note and concur with documented findings. In brief, patient is a 80-year-old gentleman initially admitted with abdominal pain later found to have sigmoid diverticulitis with perforation patient underwent sigmoid colectomy with end colostomy and Presley's procedure. Hospital stay complicated by development of acute left middle cerebral artery ischemic stroke Assessment: 1. 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 Postop wound infection 3. Acute ischemic stroke involving the left middle cerebral artery 4. Carotid artery stenosis 5. Paroxysmal A. fib 6. Essential hypertension 7. Diabetes mellitus type 2 8. Dyslipidemia 9. DVT prophylaxis 10. Acute encephalopathy possibly metabolic encephalopathy from his underlying wound infection Hospital course ?As documented above ABG / Lab / Microbiology Data Result Diagrams: 03/29/21 05:30 03/29/21 05:30 Discharge Plan Admission Admit Date/Time: 03/18/21 03:19 Primary Reason for Your Visit: Sigmoid diverticulitis with perforation Attending Provider: Faizan Ugalde Primary Care Provider: Yoon Alba NP Consulting Providers: Willy Cervantes ; Chan Corona ; Car Brown ; Laura Quiñonez [employer] DECORATOR ; Roger Sanabria Instructions Additional Instructions / Restrictions: Wound RN consult. Continue normal saline wet-to-dry dressing 3 times daily to abdominal wound. Cover with dry dressing. Wound VAC to be placed on Thursday. Will need referral to oncology at discharge. Discharge Orders/Prescriptions Prescriptions: New aspirin 81 mg Tablet,Delayed Release (Dr/Ec) 81 mg PO BREAKFAST Qty: 0 RF: 0 amoxicillin-pot clavulanate 875-125 mg Tablet 875 mg PO BID 5 Days Qty: 9 RF: 0 Continued acetaminophen [Tylenol] 325 mg tablet 650 mg PO DAILY RF: 0 cyanocobalamin (vit B-12) 100 mcg tablet 100 mcg tablet 100 mcg PO QDAY RF: 0 metformin 1,000 mg tablet 1,000 mg PO BID RF: 0 omega-3 fatty acids [Fish Oil Concentrate] 1,000 mg capsule 500 mg PO DAILY RF: 0 ferrous sulfate 324 mg (65 mg iron) tablet,delayed release (DR/EC) 324 mg PO BID RF: 0 multivitamin with folic acid 1 TABLET tablet 1 tab PO DAILY RF: 0 atorvastatin 80 mg tablet See Rx Instructions .ROUTE .COMPLEX RF: 0 lisinopril 20 mg Tablet 20 mg PO DAILY RF: 0 pantoprazole 40 mg Tablet,Delayed Release (Dr/Ec) 40 mg PO DAILY RF: 0 amlodipine 10 mg tablet 10 mg PO QDAY Qty: 90 RF: 3 Held warfarin 1 mg tablet 1 mg PO .COMPLEX Qty: 90 RF: 3 Hold Instructions: Resume on 04/03/21. Referrals / Follow Up: Willy Cervantes MD [STAFF PHYSICIAN] - In 1 Week Sulaiman Quintero MD [STAFF PHYSICIAN] - Within 1 Month Yoon Alba NP, [employer]ORATOR-C [Primary Care Provider] - In 1 Week Disposition Disposition (needs filled in before D/C Order can be placed): Inpatient Rehab Unit/Facility Charges/Coding Visit Charges Inpatient E&M: 89195 Disch Hosp Hospital Course Consultations Consultations: Consultations 03/18/21 04:19 Consult: General Surgery Routine Consulting Provider: Willy Cervantes Reason for Consult: ? Perforated diverticulitis, developing abscess EMERGENT Consult: Yes Notified: Yes Date Notified: 03/18/21 Time Notified: 03:15 Method of Notification: discussed w/ ED, in perso 03/19/21 11:37 Consult: Extraction Operator / Pulmonary Medicine Routine Consulting Provider: [facility] Reason for Consult: intensive care EMERGENT Consult: No Notified: Yes Date Notified: 03/19/21 Time Notified: 11:37 Method of Notification: Text 03/19/21 11:40 Consult: Onc/Wound/qualitative executive researcher Routine Comment: Reason for Consult:: new colostomy 03/27/21 08:18 Consult: Infectious Disease Routine Consulting Provider: Roger Sanabria Reason for Consult: Refractory leukocytosis w/ purlulent drainage s/p colon resection EMERGENT Consult: No Notified: Yes Date Notified: 03/27/21 Time Notified: 08:18 Method of Notification: Text 03/28/21 11:45 Consult: Onc/Wound/qualitative executive researcher Routine Comment: Operations - (sigmoid colectomy with end colostomy and Presley's procedure)
[2021-03-29] MEDS: Lisinopril 20 MG Tablet PO (12:01)
[2021-03-29] MEDS: amLODIPine 10 MG Tablet PO (12:01)
[2021-03-29] MEDS: Pantoprazole Sodium 40 MG Tablet PO (12:01)
[2021-03-29] MEDS: Aspirin E.C. 81 MG Tablet PO (12:01)
[2021-03-29 12:05] LABS: Bedside Glucose 161 mg/dL (70-110)
--- NOTE | 2021-03-29 14:28 | PHA.DC.MR ---
Pharmacy Service has performed discharge medication reconciliation for this patient. The patient's discharge medication list was reviewed for discrepancies and discrepancies were resolved. Home Medications multivitamin with folic acid 1 tab PO DAILY 10/21/13 acetaminophen 325 mg tablet 650 mg PO DAILY tab 09/09/17 cyanocobalamin (vitamin B-12) 100 mcg tablet 100 mcg PO QDAY 09/09/17 metformin 1,000 mg tablet 1,000 mg PO BID 09/15/17 omega-3 fatty acids 1,000 mg capsule 500 mg PO DAILY 02/29/20 amlodipine 10 mg tablet 10 mg PO QDAY #90 tab 05/01/20 warfarin 1 mg tablet 1 mg PO .COMPLEX #90 tab 10/11/20 ferrous sulfate 324 mg (65 mg iron) tablet,delayed release 324 mg PO BID 11/13/20 atorvastatin See Rx Instructions .ROUTE .COMPLEX 03/07/21 lisinopril 20 mg PO DAILY 03/19/21 pantoprazole 40 mg PO DAILY 03/19/21 amoxicillin-pot clavulanate 875 mg PO BID 5 Days #9 tab 03/29/21 aspirin 81 mg PO BREAKFAST #0 tab 03/29/21
== END 2021-03-29 14:31 | DRG 329 ==
LOC: ED 03-18 01:15 → PCU 03-18 03:33 → ICU 03-19 09:40 → PCU 03-21 09:25
PROVIDERS: Internal Medicine Critical Care Medicine; Internal Medicine Infectious Disease; Nurse Practitioner Family; Surgery; Admitting Provider Family Medicine; Emergency Provider Emergency Medicine; PCP Nurse Practitioner; Visit Provider Internal Medicine
PROC: 0DTN0ZZ Resection of Sigmoid Colon, Open Approach (ICD-10-PCS; CPT 44204; principal; 2021-03-19 08:05)
DX: K57.20 Diverticulitis of large intestine with perforation and abscess without bleeding (principal); I63.512 Cerebral infarction due to unspecified occlusion or stenosis of left middle cerebral artery; K65.9 Peritonitis, unspecified; G93.41 Metabolic encephalopathy; I50.31 Acute diastolic (congestive) heart failure; R47.01 Aphasia; G81.91 Hemiplegia, unspecified affecting right dominant side; C18.7 Malignant neoplasm of sigmoid colon; Q21.1 Atrial septal defect; T81.42XA Infection following a procedure, deep incisional surgical site, initial encounter; R18.8 Other ascites; R29.707 NIHSS score 7; B96.20 Unspecified Escherichia coli [E. coli] as the cause of diseases classified elsewhere; B96.6 Bacteroides fragilis [B. fragilis] as the cause of diseases classified elsewhere; K21.9 Gastro-esophageal reflux disease without esophagitis; K52.9 Noninfective gastroenteritis and colitis, unspecified; I48.0 Paroxysmal atrial fibrillation; I11.0 Hypertensive heart disease with heart failure; I65.23 Occlusion and stenosis of bilateral carotid arteries; I35.0 Nonrheumatic aortic (valve) stenosis; I25.10 Atherosclerotic heart disease of native coronary artery without angina pectoris; I27.20 Pulmonary hypertension, unspecified; I16.0 Hypertensive urgency; E11.51 Type 2 diabetes mellitus with diabetic peripheral angiopathy without gangrene; E78.5 Hyperlipidemia, unspecified; E87.6 Hypokalemia; E66.01 Morbid (severe) obesity due to excess calories; Z68.37 Body mass index [BMI] 37.0-37.9, adult; Z90.79 Acquired absence of other genital organ(s); Z79.01 Long term (current) use of anticoagulants; Z79.02 Long term (current) use of antithrombotics/antiplatelets; Z79.82 Long term (current) use of aspirin; Z79.84 Long term (current) use of oral hypoglycemic drugs; Z79.899 Other long term (current) drug therapy; Z85.46 Personal history of malignant neoplasm of prostate; Z86.73 Personal history of transient ischemic attack (TIA), and cerebral infarction without residual deficits; Z80.0 Family history of malignant neoplasm of digestive organs
CPT/HCPCS: 31720; 36415; 36569; 36600; 70450; 70544; 70547; 70551; 71045; 73560; 74177; 80048; 80053; 80061; 80202; 81001; 82550; 82803; 82962; 83605; 83735; 84100; 84478; 84484; 85025; 85610; 85730; 86850; 86900; 86901; 86920; 86922; 87070; 87075; 87077; 87186; 87205; 87426; 87493; 87506; 88307; 88309; 88341; 88342; 92507; 92523; 92526; 92610; 93005; 93306; 93880; 94002; 94003; 94640; 94660; 94762; 97110; 97162; 97164; 97166; 97167; 97168; 97530; 97535; 97802; 97803; 99251; 99285; J7030; J7040; J7050; Q9967; A4216; C1760; G0463; J0295; J1940; J2405; J3010; J3490

== ENCOUNTER 2021-03-29 15:05 | Inpatient (IN) | payer MEDICARE, OTHER, SELFPAY ==
[2021-03-19 08:16] VITALS: BMI 36.6
[2021-03-29 15:48] VITALS: BP 160/86; PULSE 83; RESP 18; TEMP 37; O2SAT 95; BMI 35.6
[2021-03-29 16:35] LABS: Bedside Glucose 150 mg/dL (70-110)
[2021-03-29 16:45] VITALS: RESP 12; O2SAT 94
--- NOTE | 2021-03-29 17:32 | HP.PCM_ITS ---
[facility] - [facility] General Date of Admission: 03/29/21 HPI Narrative VIDHYA YA, is a 80 YO M with a past medical history of diabetes mellitus type 2, hypertension, hyperlipidemia, history of CVA, history of prostate cancer, history of prostatectomy, nonobstructive coronary artery di sease, obesity, history of PFO, bilateral carotid artery stenosis and chronic anticoagulation with warfarin who presented to the emergency department at [facility] on 04-06 complaining of abdominal pain associated with nausea, vomiting and loose watery stools. CT scan of the abdomen and pelvis showed ascites and mild to moderate free fluid in the pelvis. There was a fluid collection with air raising the concern of an abscess at the anterior pelvis. He was admitted to the hospital with a diagnosis of acute sepsis secondary to an abdominal source and Dr. Cervantes was consulted. He was taken to surgery on 03/19/2021 for diverticulitis with peritonitis and abscess. 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 During surgery he was noted to have a 5 cm mass in the colon and pathology demonstrated adenocarcinoma. 1 of 1 lymph nodes was negative for metastatic carcinoma. Prior to surgery he had a carotid ultrasound that showed greater than 70% right internal carotid artery stenosis and no flow in the left internal carotid artery. Postoperatively he was transferred to the intensive care unit intubated. The following morning when he was extubated he was noted to have right-sided weakness and aphasia. He had a CT scan of the brain and findings were concerning for a large left MCA territory ischemic stroke. There was no evidence of intracranial hemorrhage. Because of the recent surgery he was not a candidate for TPA. MRI on 03/21/2021 showed an acute ischemic infarction in the left middle cerebral artery territory involving the posterior temporal lobe, posterior left frontal lobe and parietal lobe. An MRI of the head showed occlusion of the left petrous, cavernous and supraclinoid carotid. MRA of the neck showed atherosclerotic disease more severe on the left with occlusion of the left internal carotid just distal to the origin. Transthoracic echocardiogram showed an EF of 55 to 60% with mild aortic stenosis. There was mild aortic regurgitation, mild mitral regurgitation and moderate tricuspid regurgitation. The PA systolic pressure was calculated to be 55 consistent with moderate pulmonary hypertension. Consultation was obtained with SOC and they recommended discontinuing anticoagulation due to the large size of the stroke and restarting anticoagulation 2 weeks post stroke. On 03/29/2021 he was transferred to the acute rehab unit at [facility] for greater than 3 hours of therapy daily to restore independence/function at or near his prior level. [facility] Medical History Diabetes mellitus, type II Diverticulitis Essential (primary) hypertension History of CVA (cerebrovascular accident) (10/21/13) History of prostate cancer Hyperlipidemia Longstanding persistent atrial fibrillation Nonobstructive atherosclerosis of coronary artery Obesity (BMI 30.0-34.9) Occlusion and stenosis of bilateral carotid arteries Patent foramen ovale Sepsis secondary to UTI Home Medications multivitamin with folic acid 1 tab PO DAILY 10/21/13 [History Last Taken Unknown] acetaminophen 325 mg tablet 650 mg PO DAILY tab 09/09/17 [History Last Taken Unknown] cyanocobalamin (vitamin B-12) 100 mcg tablet 100 mcg PO QDAY 09/09/17 [History Last Taken Unknown] metformin 1,000 mg tablet 1,000 mg PO BID 09/15/17 [History Last Taken 11/25/20] omega-3 fatty acids 1,000 mg capsule 500 mg PO DAILY 02/29/20 [History Last Taken Unknown] amlodipine 10 mg tablet 10 mg PO QDAY #90 tab 05/01/20 [Rx Last Taken 11/26/20] warfarin 1 mg tablet 1 mg PO .COMPLEX #90 tab 10/11/20 [Rx Last Taken 11/21/20] ferrous sulfate 324 mg (65 mg iron) tablet,delayed release 324 mg PO BID 11/13/20 [History Last Taken Unknown] atorvastatin 80 mg PO QHS 03/07/21 [History Last Taken Unknown] lisinopril 20 mg PO DAILY 03/19/21 [History Last Taken Unknown] pantoprazole 40 mg PO DAILY 03/19/21 [History Last Taken Unknown] amoxicillin-pot clavulanate 875 mg PO BID 03/29/21 [History Last Taken Unknown] aspirin 81 mg PO BREAKFAST 03/29/21 [History Last Taken Unknown] Allergy/AdvReac Type Severity Reaction Status Date / Time No Known Allergies Allergy Verified 03/07/21 19:11 Family History Sister Diabetes Heart disease Brother Colon cancer Father CVA (cerebral vascular accident) Surgical History History of cardioversion (01/11/10) History of knee replacement History of knee replacement procedure of left knee History of left heart catheterization (11/26/20) History of prostatectomy Social History household members: spouse housing: other history of recent travel: No Smoking Status: Never smoker alcohol intake: never caffeine: Yes Type: carbonated beverages and coffee ROS Review of Systems ROS Unobtainable: due to mental status and other Details: aphasia/recent CVA/severe cognitive dysfunction/severe dysarthria Cardiovascular Cardiovascular: Denies chest pain Respiratory/Chest Respiratory/Chest: Denies dyspnea Gastrointestinal Gastrointestinal: Denies abdominal pain or vomiting Vital Signs Vital Signs Vital Signs: 03/29/21 15:48 03/29/21 16:45 Temperature 98.6 F Temperature Source Oral Pulse Rate 83 Respiratory Rate 18 12 Blood Pressure 160/86 H Blood Pressure Mean 110 Blood Pressure Source Monitor Blood Pressure Position Semi-Fowlers Blood Pressure Location Left Forearm Pulse Ox 95 94 Oxygen Delivery Method Room Air Room Air Weight Weight: 207 lb 10.807 oz Body Mass Index (BMI) 35.6 Physical Exam Const alert and no apparent distress Constitutional Narrative: He is calling out frequently for the nurses. Reportedly he messes with the colostomy bag and gets it off. General Appearance: cooperative; Negative for combative Eyes PERRL and EOMs intact bilaterally Neck supple General: trachea midline Resp normal respiratory effort and clear to auscultation bilaterally Resp Narrative: Not tachypnea. Diminished. No Rales, wheezing or rhonchi. Cardio regular rate, regular rhythm, S1 normal heart sound, S2 normal heart sound and no gallops GI GI Narrative: Colostomy is present. There is soft/liquidy stool present in the bag. Bowel sounds are present. No guarding with palpation. Nondistended. Extremity normal capillary refill and no pedal edema Skin Skin Narrative: No rashes and no skin breakdown. Neuro Neuro Narrative: Mild right facial droop. Otherwise cranial nerves are grossly intact. No visual field cuts. He has both dysarthria and aphasia. No unilateral weakness. No sensory deficits. No ataxia. Speech is very difficult to understand. Psych Psych Narrative: He has been pleasant and polite. He is cooperative for the most part. No agitation or combative behavior. Poor safety awareness. Results Lab / Micro Data Labs: Laboratory Results - last 24 hr 03/29/21 16:29: POC Glucose 150 H Assessment & Plan Assessment/Plan (1) Debility: (2) Perforated sigmoid colon: (3) Colon cancer: QUALIFIERS: Colon location: sigmoid Qualified Code(s): C18.7 - Malignant neoplasm of sigmoid colon (4) Ischemic cerebrovascular accident (CVA): (5) Occlusion and stenosis of bilateral carotid arteries: (6) Patent foramen ovale: (7) Longstanding persistent atrial fibrillation: (8) Diabetes mellitus, type II: QUALIFIERS: Diabetes mellitus supervisor long goods insulin use: without supervisor long goods use Diabetes mellitus complication status: without complication Qualified Code(s): E11.9 - Type 2 diabetes mellitus without complications (9) Essential (primary) hypertension: (10) Hyperlipidemia: QUALIFIERS: Hyperlipidemia type: pure hypercholesterolemia Qualified Code(s): E78.00 - Pure hypercholesterolemia, unspecified; E78.0 - Pure hypercholesterolemia (11) Nonobstructive atherosclerosis of coronary artery: (12) Cognitive dysfunction: (13) Dysarthria: (14) Aphasia: (15) Acute right-sided weakness: (16) Anemia: (17) Non-healing surgical wound: (18) Deep incisional surgical site infection: (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 Cervantes, Dr. Eubanks/Ryan Stroud PA following DC from IP Rehab AM lab including BMP, CBC, Mag and PT/INR Thursday the He is at very high risk for additional CVA's due to 100% occlusion of the L carotid and 70% stenosis of the R carotid along with PFO and AF. Possible wound vac on Thursday. Charges/Coding Visit Charges Inpatient E&M: 33181 Init Hosp L3
--- NOTE | 2021-03-29 17:51 | REHABEVAL_ITS ---
Admission Information Primary Diagnosis:: Debility secondary to recent large left middle cerebral artery ischemic CVA. Status Changes from Prescreening?: No changes Identified Risk of Complications DVT: LMWH, LU Ayone and - (DC the Lovenox 2 days after starting the Warfarin on 04/03/21. Consider Eliquis if he goes home but, OK for Warfarin if he goes to a ECF) Bleeding: Monitor Lab Values, Nursing to Teach Precautions for anti-coagulation therapy., Wound, if applicable, to be assessed every shift. and Stroke patients assessed for lethargy or change in status. Infection: Clinical Staff to Monitor for S/S of infection: and S/S of infection include fever, redness, warmth, etc. Urinary Tract Infection: Monitor for frequency, burning, discomfort, or incontinence. and Nursing will obtain urine sample for urinalysis and C&S when ordered. Aspiration: Clinical staff will monitor for coughing, drooling, congestion., Speech will evaluate swallowing and dsyphasia. and Nursing will monitor patient swallowing during meals. Falls: Patient will be evaluated for Fall Precautions and Patient will be placed on Fall Precautions as indicated per protocol. Skin Breakdown: Nursing will assess skin daily using assessment tool. and Nursing will place on Skin Breakdown Precautions as indicated. Pain: Clinical staff will assess patient's pain level per protocol., Medications will be given, if needed, and the pain level reassessed. and Other methods: Massage, distraction, decrease stimulus, etc. used PRN. Plan of Care Patient requires physician specializing in physical medicine and rehab oversight to provide close medical supervision of rehab issues including: Pain Management, Sleep Problems, Bowel and Bladder, Medical and co-morbidity Management, DVT prophylaxis, Rehabilitation Leadership and Coordination of treatment team Patient needs Physical Therapy: For a minimum of 1 hour and At least 5 out of 7 days Patient needs Physical Therapy to improve:: Mobility, Strengthening, Transfers, Stretching, ROM, Endurance, Stairs, Gait and Balance Patient needs Occupational Therapy: For a minimum of 1 hour and At least 5 out of 7 days Patient needs Occupational Therapy to improve ADL's incl.: Eating, Grooming, Bathing, Dressing, Toileting, Toilet transfers, Community Reintegration, Higher functioning activities, Household tasks, Adaptive Equipment, Splinting and Other activities as determined Patient requires speech therapy: For a minimum of 1 hour and At least 5 out of 7 days Patient requires speech therapy for: Swallowing, Cognition, Language Skills and Compensatory Strategies Patient requires 24/ Rehabilitation Nursing for: Pain Issues, Identifying and preventing risk factors, Monitoring and reporting current medical conditions, Assisting with ambulation, transfer, and all ADL's, Teaching patients about disease process and medications, Family teaching, Providing safe environment, Bowel and Bladder Issues, Skin integrity and Medication Management Patient needs Hat Brim And Crown Laminating Operator/ Case Management for: Discharge Planning, Arranging Home Equipment or Services and Family Interventions Patient needs Dietary and Nutrition Services for: Adequate Nutrition, Nutritional Supplements and Nutritional Education Goals Patient will remain: free from falls and or injury at time of discharge. Patient will perform bed mobility at: MOD I level of assist. Patient will complete transfers from bed to chair at: MOD I level of assist. Patient will ambulate: 100 feet and with LRD Patient will complete upper body dressing at: MOD I level of assist. Patient will complete lower body dressing at: MOD I level of assist. Patient will complete toileting at: - (I seriously doubt if he will be able to change the colostomy without assistance. ) Patient will perform bathing at: Standby Assist. Patient will complete grooming at: MOD I level of assist. Patient will achieve: - (1 curb step) Patient will have pain level of: of 3 or less Patient's skin will: remain intact Patient will receive: adequate nutrition. Discharge Planning Pt Prognosis for Sig. Practical Improv. w/in Reasonable Time: Fair Estimated Length of stay (days): 21 Anticipated D/C Destination: [facility] Facility Was Preadmission Assessment Accurate?: Yes
[2021-03-29 21:00] VITALS: PULSE 84; RESP 18; TEMP 36.8; O2SAT 94
[2021-03-29] MEDS: metFORMIN HCl 1,000 MG Tablet 1000 MG PO (21:04)
[2021-03-29] MEDS: Ferrous Sulfate 325 MG Tablet PO (21:05)
[2021-03-29] MEDS: Amox/Clavulanate 875 MG Tablet PO (21:05)
[2021-03-29] MEDS: Atorvastatin Calcium 80 MG Tablet PO (21:06)
[2021-03-29] MEDS: Senna/Docusate Sodium 1 Tablet 2 TABLET PO (21:07)
[2021-03-29 22:26] LABS: Bedside Glucose 143 mg/dL (70-110)
[2021-03-30] MEDS: 0.9% Saline Lock 10 ML Syringe IV ×2 (05:37→17:41)
[2021-03-30 06:21] LABS: Bedside Glucose 145 mg/dL (70-110)
[2021-03-30 07:09] VITALS: BP 149/70; PULSE 98; RESP 20; TEMP 36.7; O2SAT 92
[2021-03-30] MEDS: Acetaminophen 325 MG Tablet 650 MG PO (08:50)
[2021-03-30] MEDS: Ferrous Sulfate 325 MG Tablet PO ×2 (08:50→20:51)
[2021-03-30] MEDS: Cyanocobalamin 500 MCG Tablet PO (08:50)
[2021-03-30] MEDS: metFORMIN HCl 1,000 MG Tablet 1000 MG PO ×2 (08:51→20:52)
[2021-03-30] MEDS: Lisinopril 20 MG Tablet PO (08:51)
[2021-03-30] MEDS: Pantoprazole Sodium 40 MG Tablet PO (08:51)
[2021-03-30] MEDS: amLODIPine 10 MG Tablet PO (08:51)
[2021-03-30] MEDS: Amox/Clavulanate 875 MG Tablet PO ×2 (08:51→20:52)
[2021-03-30] MEDS: Multivitamins,Therapeutic Tablet 1 TABLET PO (08:52)
[2021-03-30] MEDS: Aspirin E.C. 81 MG Tablet PO (08:52)
[2021-03-30 10:01] VITALS: BMI 35.6
[2021-03-30 10:26] VITALS: O2SAT 94
--- NOTE | 2021-03-30 11:30 | NURSING ---
Resistive to taking Am meds and this nurse tried several times and patient eventually took. Patient alert x2 but has short term memory issues. Does not remember to use the call light despite being shown several times and yells out for help. Impulsive with some anxiety. This nurse told niece that he has been taking out his hearing aids, threw one at a therapist, and staff finds them in the bed or chair. Patient also noted with confusion on how to put hearing aid in and nurse aide seen him putting one in his nose.
[2021-03-30 13:05] LABS: Bedside Glucose 144 mg/dL (70-110)
[2021-03-30 15:11] VITALS: BMI 35.6
[2021-03-30] MEDS: Glucerna Shake 120 ML LIQUID PO (17:16)
[2021-03-30 17:26] LABS: Bedside Glucose 113 mg/dL (70-110)
[2021-03-30 20:20] VITALS: BP 156/74; PULSE 68; PULSE 98; RESP 16; TEMP 36.9; O2SAT 94
[2021-03-30] MEDS: Atorvastatin Calcium 80 MG Tablet PO (20:52)
[2021-03-30] MEDS: Menthol/Lanolin/Calamine/Znox 113 GM Tube 1 APPLIC TOPICAL (21:02)
[2021-03-30 21:11] LABS: Bedside Glucose 125 mg/dL (70-110)
--- NOTE | 2021-03-31 01:49 | NURSING ---
Reviewed and agree with MEDICAL RECORD TECHNICIAN assessment.
[2021-03-31] MEDS: 0.9% Saline Lock 10 ML Syringe IV ×2 (05:42→21:18)
[2021-03-31] MEDS: Menthol/Lanolin/Calamine/Znox 113 GM Tube 1 APPLIC TOPICAL ×2 (06:16→21:18)
[2021-03-31 06:21] LABS: Bedside Glucose 122 mg/dL (70-110)
[2021-03-31 07:54] VITALS: BP 140/61; PULSE 82; RESP 18; TEMP 36.7; O2SAT 92
[2021-03-31] MEDS: Aspirin E.C. 81 MG Tablet PO (07:55)
[2021-03-31] MEDS: Ferrous Sulfate 325 MG Tablet PO ×2 (07:55→21:18)
[2021-03-31] MEDS: Pantoprazole Sodium 40 MG Tablet PO (07:55)
[2021-03-31] MEDS: Cyanocobalamin 500 MCG Tablet PO (07:55)
[2021-03-31] MEDS: amLODIPine 10 MG Tablet PO (07:55)
[2021-03-31] MEDS: Lisinopril 20 MG Tablet PO (07:55)
[2021-03-31] MEDS: Amox/Clavulanate 875 MG Tablet PO ×2 (07:55→21:17)
[2021-03-31] MEDS: Multivitamins,Therapeutic Tablet 1 TABLET PO (07:56)
[2021-03-31] MEDS: Acetaminophen 325 MG Tablet 650 MG PO (07:56)
[2021-03-31] MEDS: metFORMIN HCl 1,000 MG Tablet 1000 MG PO ×2 (07:56→21:18)
[2021-03-31] MEDS: Glucerna Shake 120 ML LIQUID PO ×3 (07:57→17:13)
[2021-03-31 11:31] LABS: Bedside Glucose 137 mg/dL (70-110)
[2021-03-31 11:43] VITALS: BMI 35.6
[2021-03-31 17:26] LABS: Bedside Glucose 125 mg/dL (70-110)
[2021-03-31 21:00] VITALS: BP 154/69; PULSE 84; RESP 20; TEMP 36.3; O2SAT 100
[2021-03-31] MEDS: Atorvastatin Calcium 80 MG Tablet PO (21:17)
[2021-03-31] MEDS: MELATONIN 3 MG TABLET PO (21:18)
[2021-03-31 21:40] LABS: Bedside Glucose 128 mg/dL (70-110)
--- NOTE | 2021-04-01 01:43 | NURSING ---
Reviewed and agree with CLOTH COLORER assessment and handoff.
--- NOTE | 2021-04-01 02:35 | NURSING ---
pt up and requested to go to the br, staff noted a large brown stain on the pt sheet and gown. pt ambulated to the br and staff observed that side nearest to the abd wound of pt colostomy had come up and stool had leaked out and on to the abd dressing . pt had be noted scratching in that area earlier this hs. colostomy appliance changed as well as the abd dressing , pt tolerated the procedure well
[2021-04-01 07:10] LABS: Bedside Glucose 119 mg/dL (70-110)
[2021-04-01] MEDS: Menthol/Lanolin/Calamine/Znox 113 GM Tube 1 APPLIC TOPICAL ×2 (07:21→20:42)
[2021-04-01 08:27] VITALS: BP 144/60; PULSE 75; RESP 18; TEMP 36.4; O2SAT 93
[2021-04-01] MEDS: Amox/Clavulanate 875 MG Tablet PO ×2 (08:36→20:42)
[2021-04-01] MEDS: Lisinopril 20 MG Tablet PO (08:36)
[2021-04-01] MEDS: Pantoprazole Sodium 40 MG Tablet PO (08:36)
[2021-04-01] MEDS: Aspirin E.C. 81 MG Tablet PO (08:36)
[2021-04-01] MEDS: Cyanocobalamin 500 MCG Tablet PO (08:36)
[2021-04-01] MEDS: metFORMIN HCl 1,000 MG Tablet 1000 MG PO ×2 (08:37→20:41)
[2021-04-01] MEDS: Ferrous Sulfate 325 MG Tablet PO ×2 (08:37→20:43)
[2021-04-01] MEDS: amLODIPine 10 MG Tablet PO (08:37)
[2021-04-01] MEDS: Multivitamins,Therapeutic Tablet 1 TABLET PO (08:37)
[2021-04-01] MEDS: Acetaminophen 325 MG Tablet 650 MG PO (08:37)
[2021-04-01] MEDS: Glucerna Shake 120 ML LIQUID PO ×4 (08:47→20:42)
--- NOTE | 2021-04-01 08:54 | PCM.PN.BLA ---
Progress Note Day #4 Augmentin Afebrile VSS-blood pressures are better than they were however the systolic is still above goal. Maintaining appropriate oxygen saturation on RA Oral intake is adequate Discussed with nursing - no problems that need addressed. He is very alert today and following commands appropriately. Reviewed the PT/OT/ST notes Medication list reviewed. Denies SOB, cough, CP, nausea/vomiting. He does not get out of bed without calling the nurse but, has not been using the call light.....he yells out ma'am. He is very polite and cooperative. Physical Exam Const alert, oriented x3 and no apparent distress Constitutional Narrative: Sitting on the mat in the therapy room and able to maintain balance without assistance. General Appearance: cooperative, comfortable and well developed Neck supple Resp Resp Narrative: diminished breath sounds throughout. Rare expiratory wheeze, this is loudest over the trachea in the neck. He has coarse crackles in the left base. He did not cough with deep breaths. He is not tachypneic and there is no accessory muscle use. Effort and Inspection: able to speak in complete sentences Cardio Cardio Narrative: Irregular irregular rhythm with heart rate within normal limits. No MM appreciated. No gallop or rub. GI soft to palpation and non-tender GI Narrative: The colostomy looks healthy and the stump has good color. There is no erythema around the appliance. Good BS's. No guarding with palpation Extremity no calf tenderness and no pedal edema Skin General Skin Exam: no breakdown Rashes: no rashes Neuro Neuro Narrative: the dysarthria is improving.....I can better understand him when he talks to me. His attention span is short. His biggest problem at this time is the cognitive deficit and poor short term memory. 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 check a PT/INR today.....in preparation for starting Warfarin on Thursday. 2. Continue therapy. 3. Will discuss DC plans with the SW. His is disabled and we have to identify someone to change the colostomy because, I do not feel he will be able to do this without supervision. He may need to go to an SNF/ECF? 4. We will also need to refer to oncology for the colon CA. 5. He was seen by the enterostomal therapist today and the wound is wider and she can see internal sutures in the base of the wound. Vac not applied and she ill ask Dr. Cervantes to examine 6. Blood sugars are well controlled with no hypoglycemia. 7. Check iron studies.....he may not be able to absorb iron due to the PPI Visit Charges Inpatient E&M: 36005 Subs Hosp L2
[2021-04-01 09:56] VITALS: BMI 35.6
[2021-04-01 10:10] LABS: International Normalized Ratio 1.3; Prothrombin Time (Protime)PT. 15.9 SECONDS (11.7-14.9)
[2021-04-01 11:16] LABS: Bedside Glucose 141 mg/dL (70-110)
--- NOTE | 2021-04-01 15:02 | NURSING ---
wound photo: abdomen
--- NOTE | 2021-04-01 15:03 | NURSING ---
stoma photo: left lower abdomen
[2021-04-01 17:01] LABS: Bedside Glucose 131 mg/dL (70-110)
[2021-04-01 19:29] VITALS: BP 157/77; PULSE 76; RESP 18; TEMP 36.9; O2SAT 96
[2021-04-01] MEDS: 0.9% Saline Lock 10 ML Syringe IV (20:22)
[2021-04-01 20:39] VITALS: BMI 35.6
[2021-04-01] MEDS: MELATONIN 3 MG TABLET PO (20:41)
[2021-04-01] MEDS: Atorvastatin Calcium 80 MG Tablet PO (20:43)
[2021-04-01 20:46] LABS: Bedside Glucose 123 mg/dL (70-110)
[2021-04-01 22:00] VITALS: PULSE 86; RESP 16; O2SAT 98
[2021-04-02] MEDS: Menthol/Lanolin/Calamine/Znox 113 GM Tube 1 APPLIC TOPICAL ×2 (05:10→20:30)
[2021-04-02] MEDS: Enoxaparin 40 MG/0.4 ML Syringe SC (05:10)
--- NOTE | 2021-04-02 05:15 | NURSING ---
Dressing changed as per order. Pt tolerated well.
[2021-04-02 06:45] LABS: Bedside Glucose 108 mg/dL (70-110)
[2021-04-02 07:30] VITALS: BP 136/58; PULSE 75; RESP 16; TEMP 36.7; O2SAT 95
[2021-04-02] MEDS: metFORMIN HCl 1,000 MG Tablet 1000 MG PO ×2 (09:02→20:29)
[2021-04-02] MEDS: Acetaminophen 325 MG Tablet 650 MG PO (09:02)
[2021-04-02] MEDS: amLODIPine 10 MG Tablet PO (09:02)
[2021-04-02] MEDS: Ferrous Sulfate 325 MG Tablet PO ×2 (09:02→20:29)
[2021-04-02] MEDS: Amox/Clavulanate 875 MG Tablet PO ×2 (09:02→20:29)
[2021-04-02] MEDS: Multivitamins,Therapeutic Tablet 1 TABLET PO (09:02)
[2021-04-02] MEDS: Aspirin E.C. 81 MG Tablet PO (09:02)
[2021-04-02] MEDS: Pantoprazole Sodium 40 MG Tablet PO (09:02)
[2021-04-02] MEDS: Lisinopril 20 MG Tablet PO (09:03)
[2021-04-02] MEDS: Cyanocobalamin 500 MCG Tablet PO (09:03)
--- NOTE | 2021-04-02 09:20 | CASEMGMT ---
Social Work SW met with pt on 04/01/21 for initial assessment. Pt was pleasant and spoke with SW and answered questions. Pt score on BIMS cognitive assessment 10/01, pt is not a reliable source at this time. Phone call placed to pt son Paras at this time to complete assessment. Paras states that [place] and [place] Pt is obese and is in a recliner most of the time and has difficulty transferring in and out of the recliner. Pt was her primary caregiver prior to hospitalization. Per son, pt 's cognition is declining as well and she would not be able to provide any assistance to pt if he were to return home. According to son, there [place] that [place] and and provide some assistance. SW broached topic of discharge plan with Paras and that pt may not be able to return home to care for himself due to multiple medical issues and cognitive impairment. SW informed Paras of team meeting on , and while he cannot attend would like a phone call. Emotional support provided to pt son as he expresses feelings surrounding medical and cognitive decline of parents. SW to continue to follow. CAMMIE Reveles
[2021-04-02] MEDS: Glucerna Shake 120 ML LIQUID PO ×4 (10:24→20:59)
[2021-04-02 12:01] LABS: Bedside Glucose 124 mg/dL (70-110)
[2021-04-02 13:42] VITALS: BMI 35.6
[2021-04-02 17:01] LABS: Bedside Glucose 134 mg/dL (70-110)
[2021-04-02 19:14] VITALS: BP 138/72; PULSE 74; RESP 18; TEMP 36.3; O2SAT 97
--- NOTE | 2021-04-02 19:47 | NURSING ---
Hospitalist, Dr Cano, was paged r/t a complaint of rt shoulder pain @ 02/23. x1 dose of Oxycodone ordered.
[2021-04-02 20:10] VITALS: BMI 35.6
[2021-04-02 20:11] VITALS: PULSE 83; RESP 16; O2SAT 99
[2021-04-02] MEDS: oxyCODONE 5 MG Tablet PO (20:19)
[2021-04-02] MEDS: MELATONIN 3 MG TABLET PO (20:28)
[2021-04-02] MEDS: Atorvastatin Calcium 80 MG Tablet PO (20:29)
[2021-04-02] MEDS: 0.9% Saline Lock 10 ML Syringe IV (20:35)
[2021-04-02 21:01] LABS: Bedside Glucose 160 mg/dL (70-110)
[2021-04-02] MEDS: Insulin Lispro 100 UNIT/ML INSULN.PEN SC (21:02)
[2021-04-03] MEDS: Menthol/Lanolin/Calamine/Znox 113 GM Tube 1 APPLIC TOPICAL ×2 (04:38→22:59)
[2021-04-03] MEDS: Enoxaparin 40 MG/0.4 ML Syringe SC (05:11)
[2021-04-03 06:30] LABS: Bedside Glucose 141 mg/dL (70-110)
[2021-04-03 07:32] VITALS: BP 156/83; PULSE 69; RESP 18; TEMP 36.2; O2SAT 97
[2021-04-03] MEDS: Amox/Clavulanate 875 MG Tablet PO ×2 (08:23→22:56)
[2021-04-03] MEDS: metFORMIN HCl 1,000 MG Tablet 1000 MG PO ×2 (08:23→22:59)
[2021-04-03] MEDS: Multivitamins,Therapeutic Tablet 1 TABLET PO (08:23)
[2021-04-03] MEDS: amLODIPine 10 MG Tablet PO (08:23)
[2021-04-03] MEDS: Ferrous Sulfate 325 MG Tablet PO ×2 (08:23→22:57)
[2021-04-03] MEDS: Aspirin E.C. 81 MG Tablet PO (08:23)
[2021-04-03] MEDS: Acetaminophen 325 MG Tablet 650 MG PO (08:24)
[2021-04-03] MEDS: Pantoprazole Sodium 40 MG Tablet PO (08:24)
[2021-04-03] MEDS: Cyanocobalamin 500 MCG Tablet PO (08:24)
[2021-04-03] MEDS: Glucerna Shake 120 ML LIQUID PO ×2 (08:24→16:12)
[2021-04-03] MEDS: Lisinopril 20 MG Tablet PO (08:24)
--- NOTE | 2021-04-03 08:40 | VDUE_ITS ---
Reason For Study: RUE swelling Right Proximal Right jugular vein is spontaneous, widely patent, phasic, with no intraluminal echogenicity noted. Right subclavian vein is spontaneous, widely patent, phasic, with no intraluminal echogenicity noted. Right Lower Arm Right radial vein is compressible. Right ulnar vein is compressible. Right Arm Right axillary vein is spontaneous, patent, phasic, competent, compressible and demonstrates augmentation. Right brachial vein is compressible. Right cephalic vein is compressible. Right basilic vein is compressible. PICC LINE noted in basilic vein. Patient Safety Preliminary report given to Dr. Gilliam @ 9:25 am. VL/Venous Duplex US, Unilateral Interpretation Summary No evidence for acute deep venous thrombosis[right] upper extremity with patent and compressible cephalic and basilic veins. PICC line noted within the right upper arm basilic vein Ordering Physician: Yoon Gilliam Referring Physician: Yoon Alba Performed By: Zora Nickerson, GALINA, RVT ?
[2021-04-03 11:35] LABS: Bedside Glucose 161 mg/dL (70-110)
[2021-04-03 12:08] VITALS: BMI 35.6
[2021-04-03] MEDS: Insulin Lispro 100 UNIT/ML INSULN.PEN SC (12:18)
[2021-04-03 17:01] LABS: Bedside Glucose 134 mg/dL (70-110)
[2021-04-03 19:49] VITALS: BP 154/62; PULSE 72; RESP 20; TEMP 36.8; O2SAT 97
[2021-04-03 21:26] LABS: Bedside Glucose 134 mg/dL (70-110)
[2021-04-03] MEDS: Atorvastatin Calcium 80 MG Tablet PO (22:56)
[2021-04-03] MEDS: MELATONIN 3 MG TABLET PO (22:56)
[2021-04-03 23:00] VITALS: PULSE 72; RESP 20; O2SAT 97; BMI 35.6
--- NOTE | 2021-04-04 01:39 | NURSING ---
Reviewed and agree with MACHINE ERECTOR assessment and handoff.
[2021-04-04] MEDS: Enoxaparin 40 MG/0.4 ML Syringe SC (05:13)
[2021-04-04] MEDS: Menthol/Lanolin/Calamine/Znox 113 GM Tube 1 APPLIC TOPICAL ×2 (05:13→20:40)
[2021-04-04 06:55] LABS: Bedside Glucose 126 mg/dL (70-110)
[2021-04-04 07:19] VITALS: BP 153/67; PULSE 83; RESP 18; TEMP 37.1; O2SAT 97
[2021-04-04] MEDS: Aspirin E.C. 81 MG Tablet PO (08:00)
[2021-04-04] MEDS: Ferrous Sulfate 325 MG Tablet PO ×2 (08:00→20:40)
[2021-04-04] MEDS: metFORMIN HCl 1,000 MG Tablet 1000 MG PO ×2 (08:00→20:40)
[2021-04-04] MEDS: Multivitamins,Therapeutic Tablet 1 TABLET PO (08:01)
[2021-04-04] MEDS: Pantoprazole Sodium 40 MG Tablet PO (08:01)
[2021-04-04] MEDS: amLODIPine 10 MG Tablet PO (08:01)
[2021-04-04] MEDS: Acetaminophen 325 MG Tablet 650 MG PO (08:01)
[2021-04-04] MEDS: Lisinopril 20 MG Tablet PO (08:02)
[2021-04-04] MEDS: Cyanocobalamin 500 MCG Tablet PO (08:02)
[2021-04-04] MEDS: Glucerna Shake 120 ML LIQUID PO ×2 (08:03→17:29)
--- NOTE | 2021-04-04 10:58 | PCM.PN.BLA ---
Progress Note Suman was seen on TEAM rounds today and his son participated by phone. Afebrile VSS-systolic blood pressure is generally over goal. Diastolic blood pressure is within normal limits. The heart rate is within normal limits. Maintaining appropriate oxygen saturation on RA Oral intake is good Blood sugars are well controlled with no hypoglycemia. Discussed with nursing - no problems that need addressed Reviewed the PT/OT/ST notes Medication list reviewed. He continues to c/o R shoulder pain. There is swelling in the RUE but, the venous US was negative for DVT. He is on Warfarin. PT ordered for tomorrow. He denies CP, SOB, lightheadedness, N/V/abd pain. Physical Exam Const alert and oriented x3 Constitutional Narrative: He is cooperative and pleasant. He has a very good sense of humor and he interacts with staff well. Resp normal respiratory effort, normal air movement and clear to auscultation bilaterally Cardio regular rate, regular rhythm and no gallops Cardio Narrative: distant heart sounds GI soft to palpation and non-distended GI Narrative: normal BS's, wound vac is in place Extremity no calf tenderness and no pedal edema Extremity Narrative: The edema in the RUE is non-pitting and the venous US was negative for DVT. The CXR shows no masses in the RUL. Etiology of the lymphedema is unclear. He has no supraclavicular adenopathy on the R Skin Rashes: no rashes Wounds: wounds noted Wound Narrative: will examine when the vac is changed tomorrow Assessment & Plan Assessment/Plan (1) Debility: (2) Ischemic cerebrovascular accident (CVA): (3) Right shoulder pain: (4) Lymphedema: (5) Colon cancer: QUALIFIERS: Colon location: sigmoid Qualified Code(s): C18.7 - Malignant neoplasm of sigmoid colon PLAN: 1. He is weak in the R arm and the swelling may be related to decreased use. It may be due to arthritis? I am concerned about the recent diagnosis of colon CA......could he have bone mets? a lung met compressing the R thoracic duct. Will get XRAY of the R shoulder tonight and continue with compression. 2. He is improving with therapy but, he will probably not be ready for DC home by the DC date. I discussed this with him and he would be OK with going to TCU. I discussed this with the SW. I think he may be able to go home IF he has more therapy and they have help at home.......both he and his need help. 3. Continue therapy Visit Charges Inpatient E&M: 22486 Subs Hosp L2
[2021-04-04 11:11] LABS: Bedside Glucose 138 mg/dL (70-110)
--- NOTE | 2021-04-04 14:17 | CASEMGMT ---
Social Work Team meeting held today with pt present and pt son Suman on conference call. Pt is receiving PT/OT/ST and making functional gains with each discipline. Pt wishing to return home but is understanding that more therapy is needed at this time. Pt lives at home with his who is unable to assist pt with any care needs. Pt is on RU under Medicare benefit with 18 days allowed. D/C date set for 04/16. SW explained to pt and son that pt will not likely be ready to return home at that time, however, pt could go to SNF to continue his therapy. Pt and son express understanding. Will continue with treatment plan at this time and reteam next week. SW to follow to assist with discharge planning. CAMMIE Reveles
[2021-04-04 15:31] VITALS: BMI 35.6
[2021-04-04 17:05] LABS: Bedside Glucose 120 mg/dL (70-110)
[2021-04-04 20:00] VITALS: BP 155/69; PULSE 68; RESP 18; TEMP 36.6; O2SAT 94; BMI 35.6
--- NOTE | 2021-04-04 20:00 | RAD_ITS ---
STUDY: X-RAY - RIGHT SHOULDER REASON FOR EXAM: Male, 80 years old. Pain and swelling. TECHNIQUE: 2 view(s) of the shoulder. COMPARISON: None. FINDINGS: Osteopenia. Mild arthrosis of the glenohumeral joint. Moderate arthrosis of the AC joint. Normal acromion. Normal humeral head and visualized proximal humerus. The soft tissue structures are unremarkable. Right PICC with tip projected over the upper SVC. RAD/Shoulder min 2 Views IMPRESSION: Osteopenia with mild arthrosis of the glenohumeral joint and moderate arthrosis of the AC joint. No acute abnormality or erosive changes. Electronically Signed: Kermit Mosquera MD at 10:55 EDT , Service support ,
[2021-04-04] MEDS: MELATONIN 3 MG TABLET PO (20:40)
[2021-04-04] MEDS: Atorvastatin Calcium 80 MG Tablet PO (20:40)
[2021-04-04 21:01] LABS: Bedside Glucose 143 mg/dL (70-110)
[2021-04-05 05:38] LABS: Absolute Lymphocyte Count 1.34 X10^3/uL (0.83-4.51); Absolute Neutrophil Count 5.8 X10^3/uL (2.0-7.7); Basophil# 0.04 X10^3/uL; Basophil% 0.5 % (0-1); Eosinophil# 0.22 X10^3/uL; Eosinophils% 2.7 % (0-5); Hematocrit 27.7 % (40-54); Hemoglobin 8.2 g/dL (13.0-16.5); Lymphocyte # 1.34 X10^3/ul (0.83-4.51); Lymphocyte % 16.2 % (19-41); Mean Corp Hgb Conc 29.6 g/dL (32-36); Mean Corpuscular Hgb 26.6 pg (27.0-32.0); Mean Corpuscular Volume 89.9 fL (80-94); Mean Platelet Vol. 10.1 fl (6.2-12.0); Monocyte# 0.77 X10^3/uL; Monocyte% 9.3 % (0-10); NRBC Flagged by Analyzer 0 % (0-5); Neutrophil # 5.84 X10^3/uL (2.7-7.7); Neutrophil % 70.5 % (47-70); Platelet Count 359 K/mm3 (150-450); RBC Distribution Width CV 15.2 % (11.6-14.6); RBC Distribution Width SD 49.6 fl (35.1-43.9); Red Blood Count 3.08 M/mm3 (4.6-6.2); White Blood Count 8.3 K/mm3 (4.4-11.0)
[2021-04-05 05:52] LABS: International Normalized Ratio 1.5; Prothrombin Time (Protime)PT. 17.2 SECONDS (11.7-14.9)
[2021-04-05 06:16] LABS: Anion Gap 6 (5-15); BUN 6 mg/dL (7-18); Calcium,Total 8.8 mg/dL (8.5-10.1); Chloride 106 mmol/L (98-107); Creatinine, Serum 0.54 mg/dL (0.70-1.30); EST Glomerular Filtration Rate 155 mL/min (>60); Est Glom Filt Rate - Afr Amer 188 mL/min (>60); Estimated Creatinine Clearance 50.98 ml/min; Ferritin 261 ng/mL (26-388); Glucose 109 mg/dL (74-106); Iron 19 ug/dL (65-175); Iron Binding Capacity,Total 224 ug/dL (250-450); Magnesium 1.1 mg/dL (1.6-2.6); PERCENT IRON SATURATION 8.5 % (15.0-55.0); Potassium 3.8 mmol/L (3.5-5.1); Sodium Level 137 mmol/L (136-145)
[2021-04-05] MEDS: Enoxaparin 40 MG/0.4 ML Syringe SC (06:23)
[2021-04-05] MEDS: Menthol/Lanolin/Calamine/Znox 113 GM Tube 1 APPLIC TOPICAL ×2 (06:23→21:10)
[2021-04-05 06:30] LABS: Bedside Glucose 112 mg/dL (70-110)
[2021-04-05 07:42] VITALS: BP 122/63; PULSE 72; RESP 20; TEMP 36.5; O2SAT 97
[2021-04-05] MEDS: Cyanocobalamin 500 MCG Tablet PO (07:55)
[2021-04-05] MEDS: Pantoprazole Sodium 40 MG Tablet PO (07:55)
[2021-04-05] MEDS: Multivitamins,Therapeutic Tablet 1 TABLET PO (07:55)
[2021-04-05] MEDS: amLODIPine 10 MG Tablet PO (07:55)
[2021-04-05] MEDS: metFORMIN HCl 1,000 MG Tablet 1000 MG PO ×2 (07:55→21:14)
[2021-04-05] MEDS: Acetaminophen 325 MG Tablet 650 MG PO (07:55)
[2021-04-05] MEDS: Ferrous Sulfate 325 MG Tablet PO ×2 (07:55→21:14)
[2021-04-05] MEDS: Aspirin E.C. 81 MG Tablet PO (07:55)
[2021-04-05] MEDS: Lisinopril 20 MG Tablet PO (07:56)
[2021-04-05] MEDS: Glucerna Shake 120 ML LIQUID PO ×3 (08:01→21:16)
[2021-04-05 11:46] LABS: Bedside Glucose 121 mg/dL (70-110)
--- NOTE | 2021-04-05 11:50 | NURSING ---
wound photo: abdomen
--- NOTE | 2021-04-05 11:51 | NURSING ---
stoma photo: left lower abdomen
[2021-04-05 13:29] VITALS: BMI 35.6
[2021-04-05 16:15] LABS: Bedside Glucose 125 mg/dL (70-110)
[2021-04-05] MEDS: Warfarin 0.5 MG Tablet 1.5 MG PO (17:10)
[2021-04-05] MEDS: 0.9% Saline Lock 10 ML Syringe IV (17:16)
[2021-04-05 19:54] VITALS: BP 150/74; PULSE 78; RESP 18; TEMP 36.8; O2SAT 99
[2021-04-05] MEDS: Atorvastatin Calcium 80 MG Tablet PO (21:13)
[2021-04-05] MEDS: MELATONIN 3 MG TABLET PO (21:13)
[2021-04-05 21:25] LABS: Bedside Glucose 127 mg/dL (70-110)
[2021-04-06] MEDS: 0.9% Saline Lock 10 ML Syringe IV ×2 (01:54→18:36)
[2021-04-06 02:01] VITALS: BMI 35.6
--- NOTE | 2021-04-06 03:58 | NURSING ---
Reviewed and agree with CLINICAL RN LIAISON assessment
[2021-04-06] MEDS: Menthol/Lanolin/Calamine/Znox 113 GM Tube 1 APPLIC TOPICAL ×2 (06:00→23:32)
[2021-04-06 07:20] LABS: Bedside Glucose 109 mg/dL (70-110)
[2021-04-06] MEDS: Acetaminophen 325 MG Tablet 650 MG PO (08:25)
[2021-04-06] MEDS: Lisinopril 20 MG Tablet PO (08:25)
[2021-04-06] MEDS: Cyanocobalamin 500 MCG Tablet PO (08:25)
[2021-04-06] MEDS: Ferrous Sulfate 325 MG Tablet PO ×2 (08:25→23:29)
[2021-04-06] MEDS: Pantoprazole Sodium 40 MG Tablet PO (08:26)
[2021-04-06] MEDS: Aspirin E.C. 81 MG Tablet PO (08:26)
[2021-04-06] MEDS: Multivitamins,Therapeutic Tablet 1 TABLET PO (08:27)
[2021-04-06] MEDS: metFORMIN HCl 1,000 MG Tablet 1000 MG PO ×2 (08:27→23:29)
[2021-04-06] MEDS: amLODIPine 10 MG Tablet PO (08:27)
[2021-04-06] MEDS: Glucerna Shake 120 ML LIQUID PO ×4 (08:27→23:29)
[2021-04-06 08:29] VITALS: BP 149/75; PULSE 83; RESP 18; TEMP 36.9; O2SAT 96
[2021-04-06 11:21] LABS: Bedside Glucose 126 mg/dL (70-110)
[2021-04-06 14:21] VITALS: BMI 35.6
[2021-04-06 17:05] LABS: Bedside Glucose 108 mg/dL (70-110)
[2021-04-06 19:40] VITALS: BP 145/68; PULSE 65; RESP 16; TEMP 36.9; O2SAT 99
[2021-04-06] MEDS: Atorvastatin Calcium 80 MG Tablet PO (23:30)
[2021-04-06] MEDS: MELATONIN 3 MG TABLET PO (23:30)
[2021-04-06 23:31] LABS: Bedside Glucose 127 mg/dL (70-110)
[2021-04-07 00:56] VITALS: BMI 35.6
--- NOTE | 2021-04-07 04:20 | MDS.RN ---
REVIEWED AND AGREE WITH JOB HONER'S FUNCTIONAL ASSESSMENT AND HANDOFF CHARTING.
[2021-04-07] MEDS: Menthol/Lanolin/Calamine/Znox 113 GM Tube 1 APPLIC TOPICAL ×2 (05:06→21:46)
[2021-04-07 07:10] LABS: Bedside Glucose 123 mg/dL (70-110)
[2021-04-07 08:11] VITALS: BP 140/69; PULSE 82; RESP 20; TEMP 37.2; O2SAT 98
[2021-04-07] MEDS: Pantoprazole Sodium 40 MG Tablet PO (08:30)
[2021-04-07] MEDS: Multivitamins,Therapeutic Tablet 1 TABLET PO (08:30)
[2021-04-07] MEDS: Acetaminophen 325 MG Tablet 650 MG PO (08:30)
[2021-04-07] MEDS: Aspirin E.C. 81 MG Tablet PO (08:30)
[2021-04-07] MEDS: metFORMIN HCl 1,000 MG Tablet 1000 MG PO ×2 (08:34→21:46)
[2021-04-07] MEDS: Ferrous Sulfate 325 MG Tablet PO ×2 (08:34→21:46)
[2021-04-07] MEDS: Cyanocobalamin 500 MCG Tablet PO (08:35)
[2021-04-07] MEDS: amLODIPine 10 MG Tablet PO (08:35)
[2021-04-07] MEDS: Glucerna Shake 120 ML LIQUID PO ×3 (08:35→21:47)
[2021-04-07] MEDS: Lisinopril 20 MG Tablet PO (08:36)
[2021-04-07 09:26] VITALS: BMI 35.6
[2021-04-07 11:51] LABS: Bedside Glucose 137 mg/dL (70-110)
[2021-04-07] MEDS: 0.9% Saline Lock 10 ML Syringe IV (14:57)
[2021-04-07 17:01] LABS: Bedside Glucose 103 mg/dL (70-110)
[2021-04-07 19:25] VITALS: BP 165/70; PULSE 84; RESP 18; TEMP 36.3; O2SAT 99
[2021-04-07] MEDS: MELATONIN 3 MG TABLET PO (21:46)
[2021-04-07] MEDS: Atorvastatin Calcium 80 MG Tablet PO (21:46)
[2021-04-07 21:56] LABS: Bedside Glucose 126 mg/dL (70-110)
[2021-04-08 00:16] VITALS: BMI 35.6
[2021-04-08] MEDS: Menthol/Lanolin/Calamine/Znox 113 GM Tube 1 APPLIC TOPICAL ×2 (05:18→23:23)
[2021-04-08] MEDS: 0.9% Saline Lock 10 ML Syringe IV ×3 (05:19→23:49)
[2021-04-08 06:56] LABS: Bedside Glucose 116 mg/dL (70-110)
[2021-04-08 07:56] VITALS: BP 126/69; PULSE 66; RESP 20; TEMP 37.2; O2SAT 96
[2021-04-08] MEDS: Aspirin E.C. 81 MG Tablet PO (08:05)
[2021-04-08] MEDS: Ferrous Sulfate 325 MG Tablet PO ×2 (08:05→23:22)
[2021-04-08] MEDS: Acetaminophen 325 MG Tablet 650 MG PO (08:06)
[2021-04-08] MEDS: Cyanocobalamin 500 MCG Tablet PO (08:06)
[2021-04-08] MEDS: Multivitamins,Therapeutic Tablet 1 TABLET PO (08:06)
[2021-04-08] MEDS: Lisinopril 20 MG Tablet PO (08:06)
[2021-04-08] MEDS: amLODIPine 10 MG Tablet PO (08:06)
[2021-04-08] MEDS: Pantoprazole Sodium 40 MG Tablet PO (08:06)
[2021-04-08] MEDS: metFORMIN HCl 1,000 MG Tablet 1000 MG PO ×2 (08:06→23:22)
[2021-04-08] MEDS: Glucerna Shake 120 ML LIQUID PO ×3 (08:22→17:25)
--- NOTE | 2021-04-08 08:55 | PCM.PN.BLA ---
Progress Note Afebrile VSS Maintaining appropriate oxygen saturation on RA Good oral intake No problems reported by nursing Progressing in therapy Med list was reviewed. No complaints today. tells me that the R shoulder pain is somewhat better. Denies cephalgia, lightheadedness, chest pain, shortness of breath, cough, nausea/vomiting, abdominal pain, dysuria. The XRAY of the R shoulder shows mild OA and osteopenia Physical Exam Const alert and no apparent distress General Appearance: cooperative HEENT normocephalic Resp normal respiratory effort, normal air movement and clear to auscultation bilaterally Cardio regular rate, regular rhythm and no gallops GI normal to inspection, nondistended, normoactive bowel sounds Extremity no calf tenderness and no pedal edema Psych cooperative and affect normal Assessment & Plan Assessment/Plan (1) Debility: PLAN: Continue therapy. Will need to go to an SNF at [place] from rehab. This has been discussed with pt and his son. (2) Ischemic cerebrovascular accident (CVA): (3) Dysarthria: PLAN: Articulation is improving. 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 The venous US was negative. Etiology? With his hx of prostate CA and now colon CA may need to get a CT chest post DC to r/o pancoast tumor on the R with lymphedema. No supraclavicular adenopathy on the R (6) Lymphedema: PLAN: etiology? (7) Iron deficiency: PLAN: add vitamin C daily with the ferrous sulfate. Recheck HH next week and if no improvement will give IV iron. Visit Charges Inpatient E&M: 50515 Subs Hosp L2
[2021-04-08 11:25] LABS: Bedside Glucose 139 mg/dL (70-110)
[2021-04-08] MEDS: Ascorbic Acid 500 MG Tablet PO (12:26)
[2021-04-08 13:48] VITALS: TEMP 37.1
--- NOTE | 2021-04-08 14:40 | NURSING ---
wound photo: abdomen
--- NOTE | 2021-04-08 15:09 | NURSING ---
Ostomy appliance removed. there was a moderate amount of unformed brown stool noted in the appliance. peristomal skin is intact. stoma remains pink and well budded. new 2 piece flat [place] appliance placed with an Adapt ring and small bead of paste. pt tolerated well.
[2021-04-08 16:16] LABS: Bedside Glucose 152 mg/dL (70-110)
[2021-04-08 17:00] VITALS: BMI 35.6
[2021-04-08 17:05] LABS: Bedside Glucose 131 mg/dL (70-110)
[2021-04-08 19:28] VITALS: BP 128/64; PULSE 81; RESP 18; TEMP 36.6; O2SAT 95
[2021-04-08] MEDS: Atorvastatin Calcium 80 MG Tablet PO (23:22)
[2021-04-08] MEDS: MELATONIN 3 MG TABLET PO (23:23)
[2021-04-08 23:30] VITALS: PULSE 81; RESP 18; O2SAT 95; BMI 35.6
[2021-04-09 00:36] LABS: Bedside Glucose 130 mg/dL (70-110)
--- NOTE | 2021-04-09 04:34 | NURSING ---
Reviewed and agree with CUTTING PRESSMAN documentation and charting.
[2021-04-09] MEDS: Menthol/Lanolin/Calamine/Znox 113 GM Tube 1 APPLIC TOPICAL ×2 (06:33→20:33)
[2021-04-09 06:40] LABS: Bedside Glucose 122 mg/dL (70-110)
[2021-04-09] MEDS: Acetaminophen 325 MG Tablet 650 MG PO (08:06)
[2021-04-09] MEDS: Cyanocobalamin 500 MCG Tablet PO (08:07)
[2021-04-09] MEDS: Aspirin E.C. 81 MG Tablet PO (08:07)
[2021-04-09] MEDS: Ferrous Sulfate 325 MG Tablet PO ×2 (08:07→20:34)
[2021-04-09] MEDS: Multivitamins,Therapeutic Tablet 1 TABLET PO (08:07)
[2021-04-09] MEDS: amLODIPine 10 MG Tablet PO (08:07)
[2021-04-09] MEDS: metFORMIN HCl 1,000 MG Tablet 1000 MG PO ×2 (08:07→20:34)
[2021-04-09] MEDS: Lisinopril 20 MG Tablet PO (08:07)
[2021-04-09] MEDS: Pantoprazole Sodium 40 MG Tablet PO (08:07)
[2021-04-09 08:10] VITALS: BP 148/51; PULSE 65; RESP 18; TEMP 36.6; O2SAT 98
[2021-04-09] MEDS: Glucerna Shake 120 ML LIQUID PO ×3 (08:10→17:11)
[2021-04-09 11:50] LABS: Bedside Glucose 140 mg/dL (70-110)
[2021-04-09] MEDS: Ascorbic Acid 500 MG Tablet PO (12:21)
[2021-04-09 16:21] LABS: Bedside Glucose 127 mg/dL (70-110)
[2021-04-09 16:35] VITALS: BMI 35.6
[2021-04-09 19:18] VITALS: BP 136/66; PULSE 67; RESP 18; TEMP 36.4; O2SAT 97
[2021-04-09 20:00] VITALS: PULSE 67; RESP 18; O2SAT 97; BMI 35.6
[2021-04-09] MEDS: Atorvastatin Calcium 80 MG Tablet PO (20:34)
[2021-04-09] MEDS: MELATONIN 3 MG TABLET PO (20:34)
[2021-04-09] MEDS: Insulin Lispro 100 UNIT/ML INSULN.PEN SC (20:42)
[2021-04-09 21:01] LABS: Bedside Glucose 150 mg/dL (70-110)
[2021-04-10 07:20] LABS: Bedside Glucose 141 mg/dL (70-110)
[2021-04-10 07:47] VITALS: BP 144/57; PULSE 65; RESP 16; TEMP 36.6; O2SAT 97
[2021-04-10] MEDS: Acetaminophen 325 MG Tablet 650 MG PO (07:51)
[2021-04-10] MEDS: Pantoprazole Sodium 40 MG Tablet PO (07:51)
[2021-04-10] MEDS: Aspirin E.C. 81 MG Tablet PO (07:51)
[2021-04-10] MEDS: Ferrous Sulfate 325 MG Tablet PO ×2 (07:51→22:13)
[2021-04-10] MEDS: metFORMIN HCl 1,000 MG Tablet 1000 MG PO ×2 (07:51→22:13)
[2021-04-10] MEDS: amLODIPine 10 MG Tablet PO (07:51)
[2021-04-10] MEDS: Lisinopril 20 MG Tablet PO (07:51)
[2021-04-10] MEDS: Multivitamins,Therapeutic Tablet 1 TABLET PO (07:51)
[2021-04-10] MEDS: Cyanocobalamin 500 MCG Tablet PO (07:51)
[2021-04-10] MEDS: Glucerna Shake 120 ML LIQUID PO ×3 (07:53→22:13)
[2021-04-10] MEDS: Menthol/Lanolin/Calamine/Znox 113 GM Tube 1 APPLIC TOPICAL ×2 (07:57→22:10)
[2021-04-10 12:11] LABS: Bedside Glucose 138 mg/dL (70-110)
[2021-04-10] MEDS: Ascorbic Acid 500 MG Tablet PO (12:14)
[2021-04-10] MEDS: 0.9% Saline Lock 10 ML Syringe IV ×2 (12:15→22:10)
[2021-04-10 14:17] VITALS: BMI 35.6
--- NOTE | 2021-04-10 15:07 | NURSING ---
colostomy appliance changed d/t appliance placed over the VAC drape. VAC dressing due to be changed today. nursing had to change appliance last evening d/t a leak. patient has some mild mucocutaneous separation to the inferior lateral edge of the stoma. there was a small amount of purulent drainage noted from this area as well. no peristomal erythema noted. cleansed skin with warm water. pat dry. applied a new 2 piece flat [place] appliance with an Adapt ring. pt tolerated well.
[2021-04-10 16:45] LABS: Bedside Glucose 121 mg/dL (70-110)
[2021-04-10 19:05] VITALS: BP 147/61; PULSE 73; RESP 16; TEMP 36.8; O2SAT 99
[2021-04-10 22:06] LABS: Bedside Glucose 147 mg/dL (70-110)
[2021-04-10] MEDS: Atorvastatin Calcium 80 MG Tablet PO (22:13)
[2021-04-10] MEDS: MELATONIN 3 MG TABLET PO (22:13)
[2021-04-11 01:11] VITALS: BMI 35.6
--- NOTE | 2021-04-11 04:10 | NURSING ---
Reviewed and agree with LUNCHROOM FOOD SERVICE SUPERVISOR assessment.
[2021-04-11] MEDS: Menthol/Lanolin/Calamine/Znox 113 GM Tube 1 APPLIC TOPICAL ×2 (04:54→22:00)
[2021-04-11 07:27] LABS: Bedside Glucose 161 mg/dL (70-110)
[2021-04-11 07:43] VITALS: BP 107/57; PULSE 77; RESP 16; TEMP 36.6; O2SAT 99
[2021-04-11] MEDS: Insulin Lispro 100 UNIT/ML INSULN.PEN SC (08:13)
[2021-04-11] MEDS: Aspirin E.C. 81 MG Tablet PO (08:14)
[2021-04-11] MEDS: Ferrous Sulfate 325 MG Tablet PO ×2 (08:14→21:54)
[2021-04-11] MEDS: amLODIPine 10 MG Tablet PO (08:15)
[2021-04-11] MEDS: Multivitamins,Therapeutic Tablet 1 TABLET PO (08:15)
[2021-04-11] MEDS: Pantoprazole Sodium 40 MG Tablet PO (08:15)
[2021-04-11] MEDS: metFORMIN HCl 1,000 MG Tablet 1000 MG PO ×2 (08:15→21:54)
[2021-04-11] MEDS: Cyanocobalamin 500 MCG Tablet PO (08:15)
[2021-04-11] MEDS: Acetaminophen 325 MG Tablet 650 MG PO (08:15)
[2021-04-11] MEDS: Lisinopril 20 MG Tablet PO (08:15)
--- NOTE | 2021-04-11 09:36 | PN_ITS ---
Progress Note Suman was seen on TEAM rounds today. His and son participated via telephone. Afebrile VSS Maintaining appropriate oxygen saturation on RA Oral intake is usually adequate Blood sugars are well controlled. He has lost almost 11 lbs since admission Good output from the colostomy. Stool is soft and formed. I discussed teaching the pt to do his ostomy care and she does not think he will be able to do it and he will need assistance with this. Discussed with nursing - no problems that need addressed Reviewed the PT/OT/ST notes - he is progressing well toward his goals. He is aware that what is coming out of his mouth is not always what he wants to say. He also realizes he is not ready to go home yet. He is able to do biceps curls with the RUE now and the swelling is going down. Medication list reviewed. He denies CP, SOB, cough, N/V/Abd pain, lightheadedness. He has no complaints today. Physical Exam Const alert Constitutional Narrative: He is easier to understand, felipe when you can get him to slow down. General Appearance: cooperative and comfortable Eyes PERRL and EOMs intact bilaterally Neck No nuchal rigidity and no lymphadenopathy General: trachea midline Resp normal respiratory effort, normal air movement, no use of accessory muscles and clear to auscultation bilaterally Resp Narrative: not tachypneic and no conversational dyspnea Effort and Inspection: able to speak in complete sentences Cardio regular rate, regular rhythm and no gallops GI soft to palpation, non-tender and non-distended GI Narrative: no guarding with palpation. BS's are normal. Extremity no calf tenderness Extremity Narrative: No LE edema and the RUE edema is less Skin General Skin Exam: no breakdown Rashes: no rashes Wound Narrative: The wound vac was changed yesterday Assessment & Plan Assessment/Plan (1) Debility: (2) Ischemic cerebrovascular accident (CVA): (3) Non-healing surgical wound: (4) Iron deficiency: (5) Right shoulder pain: (6) Lymphedema: (7) Anemia: (8) Diabetes mellitus, type II: QUALIFIERS: Diabetes mellitus residential insulin use: without middle or intermediate school principal use Diabetes mellitus complication status: without complication Qualified Code(s): E11.9 - Type 2 diabetes mellitus without complications (9) long term care social worker (current) use of anticoagulants: PLAN: 1. Recheck BMP, magnesium, H&H and PT/INR in the a.m. 2. He is very cooperative now and is working hard. He occasionally has a down day and does not want to participate. He knows he will be going to SNF at [place] and he said he will do what he has to but, I feel like this may set him back.....he really wants to get home to his and the dog. I am going to start Remeron today empirically because I feel like if he does not go home soon he is going to get much more depressed. 3. Continue therapy 4. If the HGB does not start to increase with the vitamin C and ferrous sulfate will need to consider IV iron Sucrose.
[2021-04-11 11:56] LABS: Bedside Glucose 115 mg/dL (70-110)
[2021-04-11] MEDS: Ascorbic Acid 500 MG Tablet PO (12:01)
[2021-04-11 13:12] VITALS: BMI 35.6
[2021-04-11] MEDS: Glucerna Shake 120 ML LIQUID PO ×3 (14:08→21:54)
--- NOTE | 2021-04-11 14:40 | CASEMGMT ---
Social Work Team meeting held today with pt present and pt and son on conference call. PT is receiving PT/OT/ST and progressing with therapy. Pt currently has a wound vac and new colostomy. Last day of Medicare coverage is 04/15/21 with discharge on 04/16. Pt and family would like to transfer to TCU to continue with therapy and wound care with eventual plans to return home. Referral has been made and TCU can accept pt. Plan: d/c to TCU on 04/16/21 CAMMIE Reveles
[2021-04-11 17:15] LABS: Bedside Glucose 129 mg/dL (70-110)
[2021-04-11 19:47] VITALS: BP 100/61; PULSE 61; RESP 18; TEMP 36.3; O2SAT 99
[2021-04-11] MEDS: MELATONIN 3 MG TABLET PO (21:54)
[2021-04-11] MEDS: Mirtazapine 15 MG Tablet 7.5 MG PO (21:56)
[2021-04-11] MEDS: Atorvastatin Calcium 80 MG Tablet PO (21:56)
[2021-04-11] MEDS: 0.9% Saline Lock 10 ML Syringe IV (22:10)
[2021-04-11 22:55] LABS: Bedside Glucose 123 mg/dL (70-110)
[2021-04-12 01:39] VITALS: BMI 35.6
[2021-04-12 05:53] LABS: Hematocrit 29.2 % (40-54); Hemoglobin 8.7 g/dL (13.0-16.5)
[2021-04-12 06:31] LABS: International Normalized Ratio 3.5
[2021-04-12] MEDS: Menthol/Lanolin/Calamine/Znox 113 GM Tube 1 APPLIC TOPICAL ×2 (06:51→21:09)
[2021-04-12 07:10] LABS: Bedside Glucose 124 mg/dL (70-110)
[2021-04-12 07:27] LABS: Anion Gap 6 (5-15); BUN 13 mg/dL (7-18); BUN/Creat Ratio 19.2 RATIO (10-20); Calcium,Total 8.8 mg/dL (8.5-10.1); Chloride 104 mmol/L (98-107); Creatinine, Serum 0.68 mg/dL (0.70-1.30); EST Glomerular Filtration Rate 120 mL/min (>60); Est Glom Filt Rate - Afr Amer 146 mL/min (>60); Estimated Creatinine Clearance 50.98 ml/min; Glucose 117 mg/dL (74-106); Magnesium 0.9 mg/dL (1.6-2.6); Potassium 4.1 mmol/L (3.5-5.1); Sodium Level 136 mmol/L (136-145)
[2021-04-12 07:40] VITALS: BP 151/58; PULSE 75; RESP 16; TEMP 37.2; O2SAT 98
[2021-04-12] MEDS: Magnesium Sulfate 4gm/100mL 4 GM/100 ML IV.SOLN. IV (08:33)
--- NOTE | 2021-04-12 09:05 | NURSING ---
Colostomy appliance changed. peristomal skin remains intact. cleansed skin with warm water. pat dry. applied a new flat 2 piece [place] appliamce with a small amount of stoma paste. pt tolerated well.
--- NOTE | 2021-04-12 09:50 | PCM.PN.BLA ---
Progress Note Afebrile Vital signs are stable-systolic blood pressure is sometimes very mildly elevated. Heart rate is within normal limits. He is maintaining appropriate oxygen saturation on room air fluid intake is low. Blood sugars are well controlled All lab this morning was personally reviewed. Hemoglobin is 8.7, up from 8.2 on 04/05/2021. INR is 3.5 today. Sodium is 136 and the potassium is 4.1. Serum bicarb is within normal limits. The BUN is 13 and the creatinine is 0.68 which is within his baseline. Phosphorus is within normal limits but the serum magnesium is low at 0.9. Suman is c/o feeling very tired today. He was SOB getting to the EOB this morning. BS was checked and is 147. He has not had any hypoglycemia. He is not coughing and he denies sore throat, rhinorrhea, CP, N/V. He just feels tired. It may be due to the very low magnesium. Physical Exam Const alert and no apparent distress General Appearance: cooperative Resp normal respiratory effort, normal air movement, no use of accessory muscles and clear to auscultation bilaterally Resp Narrative: not tachypneic and no conversational dyspnea. Effort and Inspection: able to speak in complete sentences Cardio regular rate, regular rhythm, no rub and no gallops GI normal to inspection, nondistended, normoactive bowel sounds Extremity Extremity Narrative: edema in the RUE is better....it is mostly limited to the hand now Neuro deep tendon reflexes 2+ bilaterally Assessment & Plan Assessment/Plan (1) Debility: (2) Ischemic cerebrovascular accident (CVA): (3) Hypomagnesemia: (4) Non-healing surgical wound: (5) Iron deficiency: PLAN: 1. 4 g of magnesium chloride IV now 2. Start 128 mg of p.o. magnesium chloride twice daily 3. Recheck magnesium level Thursday 4. Change the Coumadin to 2.5 mg daily except and Thursday he will receive 3 mg 5. No Coumadin today 6. Recheck INR next Thursday 7. I suspect the fatigue is related to the low magnesium. He is getting 4 GM this morning IV and will recheck him this afternoon. No suspicion of an infection at this time Visit Charges Inpatient E&M: 24984 Subs Hosp L2
[2021-04-12] MEDS: metFORMIN HCl 1,000 MG Tablet 1000 MG PO ×2 (10:13→21:07)
[2021-04-12] MEDS: Acetaminophen 325 MG Tablet 650 MG PO (10:13)
[2021-04-12] MEDS: Ferrous Sulfate 325 MG Tablet PO ×2 (10:13→21:07)
[2021-04-12] MEDS: Cyanocobalamin 500 MCG Tablet PO (10:13)
[2021-04-12] MEDS: amLODIPine 10 MG Tablet PO (10:13)
[2021-04-12] MEDS: Pantoprazole Sodium 40 MG Tablet PO (10:13)
[2021-04-12] MEDS: Multivitamins,Therapeutic Tablet 1 TABLET PO (10:13)
[2021-04-12] MEDS: Aspirin E.C. 81 MG Tablet PO (10:13)
[2021-04-12] MEDS: Lisinopril 20 MG Tablet PO (10:14)
[2021-04-12 10:26] LABS: Bedside Glucose 147 mg/dL (70-110)
[2021-04-12 11:56] LABS: Bedside Glucose 155 mg/dL (70-110)
[2021-04-12] MEDS: Insulin Lispro 100 UNIT/ML INSULN.PEN SC ×2 (12:05→17:15)
[2021-04-12] MEDS: Ascorbic Acid 500 MG Tablet PO (12:05)
[2021-04-12 16:31] LABS: Bedside Glucose 154 mg/dL (70-110)
[2021-04-12 17:00] VITALS: BMI 35.6
[2021-04-12 18:56] VITALS: BP 149/66; PULSE 72; RESP 18; TEMP 37.2; O2SAT 98
[2021-04-12] MEDS: MELATONIN 3 MG TABLET PO (21:06)
[2021-04-12] MEDS: Magnesium Chloride 64 MG Delay Rel.Tablet 128 MG PO (21:06)
[2021-04-12] MEDS: Glucerna Shake 120 ML LIQUID PO (21:07)
[2021-04-12] MEDS: Mirtazapine 15 MG Tablet 7.5 MG PO (21:07)
[2021-04-12] MEDS: Atorvastatin Calcium 80 MG Tablet PO (21:07)
[2021-04-12] MEDS: 0.9% Saline Lock 10 ML Syringe IV (21:21)
[2021-04-12 21:26] LABS: Bedside Glucose 142 mg/dL (70-110)
[2021-04-13 05:15] VITALS: BP 164/69; PULSE 80; RESP 18; TEMP 36.6; O2SAT 95
--- NOTE | 2021-04-13 05:15 | NURSING ---
PT C/O HEADACHE PAIN RATED #5 ON 1-10 PAIN SCALE. HEARING AID PLACED IN PT'S R EAR. NO OTHER NEURO CHANGES NOTED FROM EARLIER THIS SHIFT.
--- NOTE | 2021-04-13 05:30 | NURSING ---
DR CHOUDHURY INFORMED OF PT'S HEADACHE AND NO PRN PAIN MEDICATION. ORDER GIVEN.
[2021-04-13 05:51] LABS: Bedside Glucose 128 mg/dL (70-110)
[2021-04-13] MEDS: Acetaminophen 325 MG Tablet 650 MG PO ×2 (05:54→19:58)
[2021-04-13] MEDS: Magnesium Chloride 64 MG Delay Rel.Tablet 128 MG PO ×2 (09:38→19:58)
[2021-04-13] MEDS: amLODIPine 10 MG Tablet PO (09:38)
[2021-04-13] MEDS: Multivitamins,Therapeutic Tablet 1 TABLET PO (09:38)
[2021-04-13] MEDS: Pantoprazole Sodium 40 MG Tablet PO (09:38)
[2021-04-13] MEDS: Aspirin E.C. 81 MG Tablet PO (09:38)
[2021-04-13] MEDS: Cyanocobalamin 500 MCG Tablet PO (09:38)
[2021-04-13] MEDS: Ferrous Sulfate 325 MG Tablet PO ×2 (09:38→19:57)
[2021-04-13] MEDS: Lisinopril 20 MG Tablet PO (09:38)
[2021-04-13] MEDS: metFORMIN HCl 1,000 MG Tablet 1000 MG PO ×2 (09:39→19:58)
[2021-04-13] MEDS: Glucerna Shake 120 ML LIQUID PO ×4 (09:39→19:57)
[2021-04-13] MEDS: Ascorbic Acid 500 MG Tablet PO (09:42)
[2021-04-13 10:00] VITALS: BP 176/91; PULSE 61; RESP 18; TEMP 37.2; O2SAT 97
[2021-04-13] MEDS: Insulin Lispro 100 UNIT/ML INSULN.PEN SC ×2 (12:02→17:21)
[2021-04-13 12:20] LABS: Bedside Glucose 159 mg/dL (70-110)
[2021-04-13 14:35] VITALS: BMI 35.6
[2021-04-13 17:21] LABS: Bedside Glucose 160 mg/dL (70-110)
[2021-04-13 19:44] VITALS: BP 135/76; PULSE 78; RESP 14; TEMP 36.6; O2SAT 94
[2021-04-13 19:47] VITALS: BMI 35.6
[2021-04-13] MEDS: Mirtazapine 15 MG Tablet 7.5 MG PO (19:56)
[2021-04-13] MEDS: Menthol/Lanolin/Calamine/Znox 113 GM Tube 1 APPLIC TOPICAL (19:56)
[2021-04-13] MEDS: MELATONIN 3 MG TABLET PO (19:57)
[2021-04-13] MEDS: Atorvastatin Calcium 80 MG Tablet PO (19:58)
[2021-04-13 20:50] VITALS: BMI 35.6
[2021-04-13 22:00] VITALS: RESP 15; O2SAT 94
[2021-04-13 22:11] LABS: Bedside Glucose 146 mg/dL (70-110)
[2021-04-14] MEDS: Menthol/Lanolin/Calamine/Znox 113 GM Tube 1 APPLIC TOPICAL ×2 (05:22→23:25)
--- NOTE | 2021-04-14 05:23 | NURSING ---
Colostomy bag leaking and adhesive was replaced.
[2021-04-14 07:15] LABS: Bedside Glucose 143 mg/dL (70-110)
[2021-04-14] MEDS: Aspirin E.C. 81 MG Tablet PO (08:04)
[2021-04-14] MEDS: Ferrous Sulfate 325 MG Tablet PO ×2 (08:04→21:20)
[2021-04-14] MEDS: Magnesium Chloride 64 MG Delay Rel.Tablet 128 MG PO ×2 (08:04→21:21)
[2021-04-14] MEDS: metFORMIN HCl 1,000 MG Tablet 1000 MG PO ×2 (08:04→21:21)
[2021-04-14] MEDS: Pantoprazole Sodium 40 MG Tablet PO (08:05)
[2021-04-14] MEDS: Multivitamins,Therapeutic Tablet 1 TABLET PO (08:05)
[2021-04-14] MEDS: Cyanocobalamin 500 MCG Tablet PO (08:05)
[2021-04-14] MEDS: Lisinopril 20 MG Tablet PO (08:05)
[2021-04-14] MEDS: Glucerna Shake 120 ML LIQUID PO ×4 (08:05→21:25)
[2021-04-14] MEDS: amLODIPine 10 MG Tablet PO (08:05)
[2021-04-14] MEDS: Ascorbic Acid 500 MG Tablet PO (08:13)
[2021-04-14] MEDS: Acetaminophen 325 MG Tablet 650 MG PO ×3 (08:16→21:37)
[2021-04-14 09:17] VITALS: BP 160/62; PULSE 80; RESP 18; TEMP 36.5; O2SAT 97
[2021-04-14 11:01] LABS: Bedside Glucose 162 mg/dL (70-110)
[2021-04-14] MEDS: busPIRone 5 MG Tablet PO ×2 (12:22→21:20)
[2021-04-14] MEDS: Insulin Lispro 100 UNIT/ML INSULN.PEN SC ×2 (12:23→21:25)
[2021-04-14 14:49] VITALS: BMI 35.6
[2021-04-14 16:00] LABS: Bedside Glucose 134 mg/dL (70-110)
[2021-04-14 19:20] VITALS: BP 155/98; PULSE 73; RESP 16; TEMP 36.7; O2SAT 97
[2021-04-14] MEDS: Mirtazapine 15 MG Tablet 7.5 MG PO (21:20)
[2021-04-14] MEDS: MELATONIN 3 MG TABLET PO (21:21)
[2021-04-14] MEDS: Atorvastatin Calcium 80 MG Tablet PO (21:21)
[2021-04-14] MEDS: 0.9% Saline Lock 10 ML Syringe IV (21:39)
[2021-04-14 21:40] LABS: Bedside Glucose 176 mg/dL (70-110)
[2021-04-15 01:46] VITALS: BMI 35.6
--- NOTE | 2021-04-15 04:43 | NURSING ---
Reviewed and agree with AFTER SCHOOL PROGRAM ASSISTANT documentation and assessment charting.
[2021-04-15] MEDS: Menthol/Lanolin/Calamine/Znox 113 GM Tube 1 APPLIC TOPICAL ×2 (05:11→21:20)
[2021-04-15] MEDS: Acetaminophen 325 MG Tablet 650 MG PO ×2 (05:28→12:17)
[2021-04-15 06:50] LABS: Bedside Glucose 136 mg/dL (70-110)
[2021-04-15 07:16] LABS: Magnesium 1.3 mg/dL (1.6-2.6)
[2021-04-15 08:09] VITALS: BP 169/76; PULSE 74; RESP 20; TEMP 36.7; O2SAT 97
[2021-04-15] MEDS: metFORMIN HCl 1,000 MG Tablet 1000 MG PO ×2 (08:17→21:15)
[2021-04-15] MEDS: busPIRone 5 MG Tablet PO ×2 (08:17→21:15)
[2021-04-15] MEDS: Ferrous Sulfate 325 MG Tablet PO ×2 (08:17→18:02)
[2021-04-15] MEDS: Aspirin E.C. 81 MG Tablet PO (08:17)
[2021-04-15] MEDS: Multivitamins,Therapeutic Tablet 1 TABLET PO (08:18)
[2021-04-15] MEDS: Magnesium Chloride 64 MG Delay Rel.Tablet 128 MG PO ×3 (08:18→21:16)
[2021-04-15] MEDS: amLODIPine 10 MG Tablet PO (08:18)
[2021-04-15] MEDS: Cyanocobalamin 500 MCG Tablet PO (08:18)
[2021-04-15] MEDS: Lisinopril 20 MG Tablet PO ×2 (08:18→21:16)
[2021-04-15] MEDS: Pantoprazole Sodium 40 MG Tablet PO (08:18)
[2021-04-15] MEDS: Glucerna Shake 120 ML LIQUID PO ×4 (08:19→21:19)
--- NOTE | 2021-04-15 11:38 | PCM.PN.BLA ---
Progress Note Afebrile VSS-systolic blood pressure has been consistently elevated recently. Suman has been upset/agitated about having to go to the transitional care unit rather than home. Heart rate is within normal limits. Maintaining appropriate oxygen saturation on RA Oral intake is listed as being consistently less than 1 L a day. Blood sugars are in good control. Discussed with nursing - no problems that need addressed Reviewed the PT/OT/ST notes - He has been refusing therapy. Multiple excuses. He is tired, his arm hurts, he just wants to rest. I suspect he is anxious because he is not going home and he is being discharged to TCU this week. He did the same thing while he was on PCU and awaiting transfer to rehab. Medication list reviewed. He was started on Buspar 5 mg BID yesterday for anxiety. All lab was personally reviewed. Magnesium is still low at 1.3 despite 4 g of IV magnesium on Thursday and 128 mg twice daily of magnesium chloride Physical Exam Const alert Constitutional Narrative: grumpy and saying we do not care about him General Appearance: uncooperative Chest Chest: symmetrical chest wall rise Resp normal respiratory effort and clear to auscultation bilaterally Resp Narrative: not tachypneic and he has no conversational dyspnea Cardio regular rate, regular rhythm, no rub and no gallops Cardio Narrative: no ectopy GI normal to inspection, nondistended, normoactive bowel sounds Extremity no pedal edema Psych Attitude: uncooperative and agitated Activity / Motor Behavior: avoids eye contact Speech: loud and pressured Mood & Affect: irritable, fearful and hostile affect Assessment & Plan Assessment/Plan (1) Hypomagnesemia: (2) Iron deficiency: PLAN: 1. try Arthritis compounded cream to the L shoulder - I think he likely has OA and this will help but, will also provide therapeutic touch which he has been benefitting from 2. Increase the magnesium chloride to TID and give 4 GM of IV Mag today. 3. PT/INR in the AM 4. Continue the Buspar 5. Increase the vitamin C to BID and give with every dose of ferrous sulfate. 6. Plan on DC to TCU this week. I do not think he will be returning home because he can not take care of himself and his is disabled too. Will discuss with his son ad the SW. The time he spends in TCU will allow the family to make arrangements for where he will go following DC. It maybe that both he and his should go to assisted living or an ECF? Visit Charges Inpatient E&M: 35741 Subs Hosp L2
--- NOTE | 2021-04-15 11:46 | NURSING ---
wound/stoma photo: abdomen
--- NOTE | 2021-04-15 11:52 | NURSING ---
removed the colostomy appliance. there was a moderate amount of formed soft brown stool in the appliance. stoma remains pink and well budded. cleansed the peristomal skin with warm water. pat dry. applied a new 2 piece flat [place] appliance with a small amount of stoma paste. pt tolerated well. see wound/stoma photo.
[2021-04-15 11:55] LABS: Bedside Glucose 117 mg/dL (70-110)
[2021-04-15] MEDS: Magnesium Sulfate 4gm/100mL 4 GM/100 ML IV.SOLN. IV (14:49)
[2021-04-15] MEDS: 0.9% Saline Lock 10 ML Syringe IV (14:49)
[2021-04-15] MEDS: Arthritis Pain Compound 60 CLICK TUBE TOPICAL ×2 (14:57→21:14)
[2021-04-15 16:38] VITALS: BMI 35.6
[2021-04-15 17:11] LABS: Bedside Glucose 152 mg/dL (70-110)
[2021-04-15] MEDS: Ascorbic Acid 500 MG Tablet PO (18:03)
--- NOTE | 2021-04-15 18:12 | PCM.TXEXTCAR ---
Diet 03/29/21 16:11 Diet: Cardiac - Heart Healthy Food consistency:: Mechanical (Minced/Moist) Liquid Consistency:: Regular/Thin Routine Orders/Code Status Enema Type: Fleetz Enema Frequency: Daily PRN Suppository Type: Dulcolax 10mg Suppository Frequency: Daily PRN Change Gant Catheter: N/A O2 Liters per Minute: 1-2 O2 Frequency: PRN Keep PO Greater than or Equal to (%): 90 Routine Lab Work: CBC (weekly X 3 weeks), BMP (weekly X 2 ), INR (Check an INR on Apr 17 and then daily until < 2. When Less than 2 start the Eliquis. ) and - (Magnesium weekly X 2 and then DC if WNL.) Code Status: Full Code Wound(s) lt lower abd: Wound Type: scratch lt upper abd: Wound Type: Surgical Incision mid abd: Wound Type: Open Surgical Wound Dressing Change: KCI wound VAC Suggestions for Active Care Hours to sit in a chair: 3 Times a day to sit in chair: 3 Therapies Weight Bearing: Full weight bearing Extremity Affected:: Right Upper Physical Therapy: Eval and Treat Occupational Therapy: Eval and Treat Speech Therapy: Eval and Treat Problem/Diagnosis (1) Debility: Status: Acute Comment: Continue therapy (2) Ischemic cerebrovascular accident (CVA): Status: Acute Comment: has total occlusion of the L ICA and 70% occlusion of the R ICA (3) Cognitive dysfunction: Status: Acute (4) Dysarthria: Status: Chronic Comment: He has had this lifelong and it got worse with the CVA (5) Aphasia: Status: Acute (6) Speech apraxia: Status: Acute Comment: He does not always mean to say what comes out of his mouth. (7) Acute right-sided weakness: Status: Acute Comment: Improved. (8) Hypomagnesemia: Status: Chronic (9) Non-healing surgical wound: Status: Acute Comment: He currently has a wound vac in place. (10) Colon cancer: Status: Acute Comment: Recent diagnosis during surgery for a perforated bowel. Has not seen an oncologist (11) Iron deficiency anemia: Status: Acute Comment: He is on ferrous sulfate and Vitamin C twice a day (12) Supratherapeutic INR: Status: Acute Comment: He has stopped eating and the INR is elevated even though we have decreased the dose. He may do better with a novel oral anticoagulant. (13) Diabetes mellitus, type II: Status: Chronic Comment: Well controlled (14) Nonobstructive atherosclerosis of coronary artery: Status: Chronic Comment: 40% mid LAD per cath 2009 (15) Longstanding persistent atrial fibrillation: Status: Chronic (16) History of CVA (cerebrovascular accident): Status: Chronic Comment: remote (17) Occlusion and stenosis of bilateral carotid arteries: Status: Chronic Comment: >70% stenosis right internal carotid, less than 50% stenosis of the right external carotid artery Complete occlusion left internal carotid, >50% stenosis left external carotid U/S 03/2020 (18) Essential (primary) hypertension: Status: Chronic (19) Patent foramen ovale: Status: Chronic (20) Hyperlipidemia: Status: Chronic (21) History of prostate cancer: Status: Chronic (22) 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 (26) Lymphedema: Status: Resolved (27) Right shoulder pain: Status: Resolved Allergies/Procedures Done in Hospital Allergies No Known Allergies Allergy (Verified 03/07/21 19:11) Procedures: None Type of Care/Length of Stay Estimated LOS: Convalescent Care Less Than 30 days Type of Care Needed: Skilled Rehab Potential: Fair Prognosis: Fair Additional Orders/Day of Discharge H&P will serve as current which was dated: 03/29/21 Day of Discharge: 04/16/21 Dietary and Speech Recommendations Dietitian Recommendations/Changes: continue cardiac diet, consistency per INDUSTRIAL PSYCHOLOGIST and 120mL glucerna ONS 4x/day. Will monitor blood glucose, PO intake, and need for further diet restrictions. Follow Up Care Please follow up with your Primary Care Physician in: [facility], following DC from TCU Please Follow Up With: Dr. Toledo or Nikki When: within the next month for colon CA diagnosis Please Follow Up With: Dr. Cervantes When: 1 month Please Follow Up With: Dr. Eubanks When: 1 month Discharge Plan Admission Admit Date/Time: 03/29/21 15:05 Primary Reason for Your Visit: debility due to large ischemic CVA involving the L MCA territory Attending Provider: Yoon Gilliam Primary Care Provider: [facility] NP Consulting Providers: Willy Cervantes Instructions Patient Instructions: ED Chest Pain, Noncardiac Additional Instructions / Restrictions: 1. Discharge to TCU 04/16/21 Discharge Orders/Prescriptions Prescriptions: New multivitamin Tablet 1 tab PO DAILY Qty: 1 RF: 0 lisinopril 20 mg Tablet 20 mg PO BID Qty: 0 RF: 0 acetaminophen [Tylenol] 325 mg Tablet 650 mg PO Q4H PRN PRN (Reason: Pain 1-10 Or Fever) Qty: 1 RF: 0 Arthritis Pain Compound 2 click topical TID Qty: 0 RF: 0 ascorbic acid (vitamin C) 500 mg Tablet 500 mg PO BIDCM Qty: 0 RF: 0 bisacodyl 10 mg Suppository 10 mg MA .PRN X 1 PRN (Reason: Constipation) Qty: 0 RF: 0 buspirone 5 mg Tablet 5 mg PO BID Qty: 0 RF: 0 Glucerna 1.2 Wallace 0.06-1.2 gram-kcal/mL Liquid 120 ml PO 4X/DAY Qty: 0 RF: 0 magnesium chloride [Mag 64] 64 mg Tablet,Delayed Release (Dr/Ec) 128 mg PO TID Qty: 0 RF: 0 magnesium hydroxide 400 mg/5 mL Suspension 30 ml PO .PRN X 1 PRN (Reason: Constipation) Qty: 0 RF: 0 melatonin 3 mg Tablet 3 mg PO QHS Qty: 0 RF: 0 menthol-zinc oxide [Calmoseptine] 0.44-20.6 % Ointment 1 applic topical BID@0600,2200 Qty: 0 RF: 0 warfarin [Jantoven] 2.5 mg Tablet 2.5 mg PO MoTuWeFrSa@1700 Qty: 0 RF: 0 warfarin [Jantoven] 3 mg Tablet 3 mg PO SuTh@1700 Qty: 0 RF: 0 mirtazapine 15 mg Tablet 15 mg PO 2000 Qty: 0 RF: 0 Eliquis 5 mg tablet 5 mg PO BID Qty: 1 RF: 0 Continued cyanocobalamin (vit B-12) 100 mcg tablet 100 mcg tablet 100 mcg PO QDAY RF: 0 metformin 1,000 mg tablet 1,000 mg PO BID RF: 0 omega-3 fatty acids [Fish Oil Concentrate] 1,000 mg capsule 500 mg PO DAILY RF: 0 ferrous sulfate 324 mg (65 mg iron) tablet,delayed release (DR/EC) 324 mg PO BID RF: 0 atorvastatin 80 mg tablet 80 mg PO QHS RF: 0 pantoprazole 40 mg Tablet,Delayed Release (Dr/Ec) 40 mg PO DAILY RF: 0 aspirin 81 mg tablet,delayed release (DR/EC) 81 mg PO BREAKFAST RF: 0 amlodipine 10 mg tablet 10 mg PO QDAY Qty: 90 RF: 3 Discontinued acetaminophen [Tylenol] 325 mg tablet 650 mg PO DAILY RF: 0 multivitamin with folic acid 1 TABLET tablet 1 tab PO DAILY RF: 0 lisinopril 20 mg Tablet 20 mg PO DAILY RF: 0 amoxicillin-pot clavulanate 875-125 mg tablet 875 mg PO BID RF: 0 warfarin 1 mg tablet 1 mg PO .COMPLEX Qty: 90 RF: 3 Hold Instructions: Resume on 04/03/21. Referrals / Follow Up: [facility] COMPLIANCE REPRESENTATIVE DEALER, COMPLIANCE REPRESENTATIVE DEALER-C [Primary Care Provider] - Disposition Disposition (needs filled in before D/C Order can be placed): [facility]-Way Facility
[2021-04-15 20:08] VITALS: BP 111/50; PULSE 69; RESP 17; TEMP 36.5; O2SAT 97
[2021-04-15] MEDS: Mirtazapine 15 MG Tablet PO (21:14)
[2021-04-15] MEDS: Atorvastatin Calcium 80 MG Tablet PO (21:15)
[2021-04-15] MEDS: MELATONIN 3 MG TABLET PO (21:16)
[2021-04-15 21:41] LABS: Bedside Glucose 129 mg/dL (70-110)
[2021-04-16] MEDS: Acetaminophen 325 MG Tablet 650 MG PO (01:23)
[2021-04-16 01:47] VITALS: BMI 35.6
[2021-04-16] MEDS: Menthol/Lanolin/Calamine/Znox 113 GM Tube 1 APPLIC TOPICAL (05:02)
[2021-04-16] MEDS: Arthritis Pain Compound 60 CLICK TUBE TOPICAL (05:06)
[2021-04-16] MEDS: Magnesium Chloride 64 MG Delay Rel.Tablet 128 MG PO (05:06)
[2021-04-16] MEDS: 0.9% Saline Lock 10 ML Syringe IV (05:06)
[2021-04-16 07:01] LABS: Bedside Glucose 134 mg/dL (70-110)
[2021-04-16] MEDS: Ascorbic Acid 500 MG Tablet PO (08:22)
[2021-04-16] MEDS: Glucerna Shake 120 ML LIQUID PO (08:22)
[2021-04-16] MEDS: Pantoprazole Sodium 40 MG Tablet PO (08:22)
[2021-04-16] MEDS: Ferrous Sulfate 325 MG Tablet PO (08:22)
[2021-04-16] MEDS: Multivitamins,Therapeutic Tablet 1 TABLET PO (08:22)
[2021-04-16] MEDS: amLODIPine 10 MG Tablet PO (08:22)
[2021-04-16] MEDS: metFORMIN HCl 1,000 MG Tablet 1000 MG PO (08:22)
[2021-04-16] MEDS: busPIRone 5 MG Tablet PO (08:22)
[2021-04-16] MEDS: Aspirin E.C. 81 MG Tablet PO (08:22)
[2021-04-16] MEDS: Cyanocobalamin 500 MCG Tablet PO (08:23)
[2021-04-16] MEDS: Lisinopril 20 MG Tablet PO (08:23)
[2021-04-16 08:42] LABS: Prothrombin Time (Protime)PT. 39.5 SECONDS (11.7-14.9)
[2021-04-16 08:47] LABS: International Normalized Ratio 4.2
[2021-04-16 09:17] VITALS: BP 145/67; PULSE 72; RESP 20; TEMP 36.8; O2SAT 96
--- NOTE | 2021-04-16 09:50 | EKG12_ITS ---
Test Reason : Blood Pressure : / mmHG Vent. Rate : 072 BPM Atrial Rate : 241 BPM P-R Int : 000 ms QRS Dur : 090 ms QT Int : 372 ms P-R-T Axes : 000 -12 038 degrees QTc Int : 407 ms Undetermined rhythm : Consider Atrial Fibrillation Nonspecific ST abnormality Abnormal ECG Confirmed by MIKEL WATSON, NINFA ([id number]), scientific publications editor ESAU ANN ([id number]) on 04/18/2021 9:14:16 AM Referred By: PAT Confirmed By:NINFA MORIN MD
--- NOTE | 2021-04-16 12:14 | DS.PCM_ITS ---
Providers Date of Admission: 03/29/21 Primary Care Physician: ALEX Babcock Consultations 04/01/21 07:50 Consult: Onc/Wound/hris manager Routine Comment: Reason for Consult:: abd wound, colostomy Dr. Willy Cervantes Reason For Visit: CVA Diagnosis Discharge Diagnosis (1) Debility: Status: Acute Code(s): R53.81 - Other malaise (2) Ischemic cerebrovascular accident (CVA): Status: Acute Code(s): I63.9 - Cerebral infarction, unspecified (3) Cognitive dysfunction: Status: Acute Code(s): F09 - Unspecified mental disorder due to known physiological condition (4) Dysarthria: Status: Chronic Code(s): R47.1 - Dysarthria and anarthria (5) Aphasia: Status: Acute Code(s): R47.01 - Aphasia (6) Speech apraxia: Status: Acute Code(s): R48.2 - Apraxia (7) Acute right-sided weakness: Status: Acute Code(s): R53.1 - Weakness (8) Hypomagnesemia: Status: Chronic Code(s): E83.42 - Hypomagnesemia (9) Non-healing surgical wound: Status: Acute Code(s): T81.89XA - Other complications of procedures, not elsewhere classified, initial encounter (10) Colon cancer: Status: Acute Code(s): C18.9 - Malignant neoplasm of colon, unspecified Qualifiers: Colon location: sigmoid Qualified Code(s): C18.7 - Malignant neoplasm of sigmoid colon (11) Iron deficiency anemia: Status: Acute Code(s): D50.9 - Iron deficiency anemia, unspecified (12) Supratherapeutic INR: Status: Acute Code(s): R79.1 - Abnormal coagulation profile (13) Diabetes mellitus, type II: Status: Chronic Code(s): E11.9 - Type 2 diabetes mellitus without complications Qualifiers: Diabetes mellitus complication status: without complication Diabetes mellitus senior care insulin use: without senior care use Qualified Code(s): E11.9 - Type 2 diabetes mellitus without complications (14) Nonobstructive atherosclerosis of coronary artery: Status: Chronic Code(s): I25.10 - Atherosclerotic heart disease of [place] coronary artery without angina pectoris (15) Longstanding persistent atrial fibrillation: Status: Chronic Code(s): I48.11 - Longstanding persistent atrial fibrillation (16) History of CVA (cerebrovascular accident): Status: Chronic Code(s): Z86.73 - Personal history of transient ischemic attack (TIA), and cerebral infarction without residual deficits (17) Occlusion and stenosis of bilateral carotid arteries: Status: Chronic Code(s): I65.23 - Occlusion and stenosis of bilateral carotid arteries (18) Essential (primary) hypertension: Status: Chronic Code(s): I10 - Essential (primary) hypertension (19) Patent foramen ovale: Status: Chronic Code(s): Q21.1 - Atrial septal defect (20) Hyperlipidemia: Status: Chronic Code(s): E78.5 - Hyperlipidemia, unspecified Qualifiers: Hyperlipidemia type: pure hypercholesterolemia Qualified Code(s): E78.00 - Pure hypercholesterolemia, unspecified; E78.0 - Pure hypercholesterolemia (21) History of prostate cancer: Status: Chronic Code(s): Z85.46 - Personal history of malignant neoplasm of prostate (22) 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 Will likely need an ECF following DC from TCU. Medications at Discharge Home Medications cyanocobalamin (vitamin B-12) 100 mcg tablet 100 mcg PO QDAY 09/09/17 metformin 1,000 mg tablet 1,000 mg PO BID 09/15/17 omega-3 fatty acids 1,000 mg capsule 500 mg PO DAILY 02/29/20 ferrous sulfate 324 mg (65 mg iron) tablet,delayed release 324 mg PO BID 11/13/20 atorvastatin 80 mg PO QHS 03/07/21 pantoprazole 40 mg PO DAILY 03/19/21 aspirin 81 mg PO BREAKFAST 03/29/21 Arthritis Pain Compound 2 click TOPICAL TID #0 04/15/21 acetaminophen [Tylenol] 650 mg PO Q4H PRN PRN #1 tab 04/15/21 amlodipine 10 mg tablet 10 mg PO QDAY #90 tab 04/15/21 ascorbic acid (vitamin C) 500 mg PO BIDCM #0 tab 04/15/21 bisacodyl 10 mg TX .PRN X 1 PRN #0 ea 04/15/21 buspirone 5 mg PO BID #0 tab 04/15/21 lisinopril 20 mg PO BID #0 tab 04/15/21 magnesium chloride [Mag 64] 128 mg PO TID #0 tab 04/15/21 magnesium hydroxide 30 ml PO .PRN X 1 PRN #0 ml 04/15/21 melatonin 3 mg PO QHS #0 tab 04/15/21 menthol-zinc oxide [Calmoseptine] 1 applic TOPICAL BID@0600,2200 #0 g 04/15/21 mirtazapine 15 mg PO 2000 #0 tab 04/15/21 multivitamin 1 tab PO DAILY #1 tab 04/15/21 nut.tx.gluc intol,lf,soy-fiber [Glucerna 1.2 Wallace] 120 ml PO 4X/DAY #0 ml 04/15/21 apixaban [Eliquis] 5 mg PO BID #1 tab 04/16/21 Hospital Course Operations None Procedures Wound vac placement Summary of Care Provided Minutes Spent on Discharge: 50 Hospital Course: PARAS YA, is a 80 YO M with a past medical history of diabetes mellitus type 2, hypertension, hyperlipidemia, history of CVA, history of prostate cancer, history of prostatectomy, nonobstructive coronary artery disease, obesity, history of PFO, bilateral carotid artery stenosis and chronic anticoagulation with warfarin who presented to the emergency department at [facility] on 04-06 complaining of abdominal pain associated with nausea, vomiting and loose watery stools. CT scan of the abdomen and pelvis showed ascites and mild to moderate free fluid in the pelvis. There was a fluid collection with air raising the concern of an abscess at the anterior pelvis. He was admitted to the hospital with a diagnosis of acute sepsis secondary to an abdominal source and Dr. Cervantes was consulted. He was taken to surgery on 03/19/2021 for diverticulitis with peritonitis and abscess. 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 During surgery he was noted to have a 5 cm mass in the colon and pathology demonstrated adenocarcinoma. 1 of 1 lymph nodes was negative for metastatic carcinoma. Prior to surgery he had a carotid ultrasound that showed greater than 70% right internal carotid artery stenosis and no flow in the left internal carotid artery. Postoperatively he was transferred to the intensive care unit intubated. The following morning when he was extubated he was noted to have right-sided weakness and aphasia. He had a CT scan of the brain and findings were concerning for a large left MCA territory ischemic stroke. There was no evidence of intracranial hemorrhage. Because of the recent surgery he was not a candidate for TPA. MRI on 03/21/2021 showed an acute ischemic infarction in the left middle cerebral artery territory involving the posterior temporal lobe, posterior left frontal lobe and parietal lobe. An MRI of the head showed occlusion of the left petrous, cavernous and supraclinoid carotid. MRA of the neck showed atherosclerotic disease more severe on the left with occlusion of the left internal carotid just distal to the origin. Transthoracic echocardiogram showed an EF of 55 to 60% with mild aortic stenosis. There was mild aortic regurgitation, mild mitral regurgitation and moderate tricuspid regurgitation. The PA systolic pressure was calculated to be 55 consistent with moderate pulmonary hypertension. Consultation was obtained with [facility] and they recommended discontinuing anticoagulation due to the large size of the stroke and restarting anticoagulation 2 weeks post stroke. On 03/29/2021 he was transferred to the acute rehab unit at [facility] for greater than 3 hours of therapy daily to restore independence/function at or near his prior level. Suman was very cooperative with the staff in rehab and doing well until 04/12/21. On that date he started to get agitated because he was told he would need to go to TCU for additional therapy. He was OK with this up until 04/12/21. The DC date was 04/16/21. He became anxious/agitated/belligerent and refused to do any additional therapy. He insists no one is addressing his concerns and he thinks a surgery will fix his problems. I believe he means surgery on the occluded L ICA. He has been c/o not being able to move his L arm but, many of us have observed him using his Left arm. The ST gave him his water cup and he held it in his left hand and raised it to his mouth. When he moves his left arm he does not grimace or wince. There is no joint swelling, no erythema and no wounds on the LUE. His hand is warm to touch. There is no blanching of the nail beds or skin when the arm is elevated. When one of the staff touches his R UE he complains of severe pain. An EKG on 04/16/21 shows AF with controlled VR and NS ST and T wave changes only. He has been refusing to eat and his intake has significantly decreased. Because of this the INR is increasing despite holding the medication and restarting at a decreased dose. He denies a FERNÁNDEZ and he has no new focal neurologic deficits on his neuro exam. I think it is best to change to a NOAC rather than Warfarin and he will have daily INR until the INR is less than 2 and at that time Eliquis will be started. I understand from nursing that this behavior is identical to what happened on PCU prior to transfer to rehab. He is afraid he is going to and we are not doing anything to help him. Prior to last Thursday he was able to do the tug test in 26.53 seconds with a wheeled walker at contact-guard assist. He could do 7 stands in 30 seconds which was the same as the preceding week. He was able to a send/descend 5 steps with 2 handrails at standby assist. He had ambulated up to 150 feet on various surfaces including outside with a wheeled walker. He is able to feed himself and groom himself but since last Thursday has been refusing to feed himself and requests that nursing feed him. He is able to dress his upper body and requires only minimal assistance with his lower body dressing but once again is refusing to do this at [facility]. He is SBA with toileting and with toilet transfer. Suman's is disabled and Suman can not take care of himself. He is not safe and he can not manage the colostomy. I had a discussion with his son, Paras, and suggested he start looking for an appropriate place to care for both his mother and father. The has given him a list of ECF's closer to where he lives to check out. Suman is clearly depressed, anxious and afraid of dying. There is a good possibility that he will have additional strokes due to the stenosis of the carotid arteries. He also has been diagnosed with colon CA now and has had prostate CA in the past. He has heart disease. He has a large abdominal wound that requires a wound vac and he is at risk for infection. I discussed obtaining a palliative care consult with Paras and he was agreeable. It is my hope that they will be able to manage his sx and I suspect he may need to transition to Hospice at some point in the not too distant future. He is on Remeron and Buspar for anxiety/depression and Seroquel has been added prior to DC to help with behavior control. He was discharged to TCU on 04/16/21. Physical Exam Const alert and no apparent distress Constitutional Narrative: He was sitting in the recliner at the bedside when I entered his room and appeared to be in NAD. General Appearance: comfortable; Negative for combative HEENT normocephalic Mouth: dry mucous membranes Eyes PERRL and EOMs intact bilaterally Neck No nuchal rigidity, no lymphadenopathy and supple General: trachea midline Resp normal respiratory effort, normal air movement, no use of accessory muscles and clear to auscultation bilaterally Resp Narrative: Not tachypneic and no conversational dyspnea. He was cooperative with me when I asked him to take a deep breath. Effort and Inspection: able to speak in complete sentences Cardio S1 normal heart sound, S2 normal heart sound, no rub and no gallops Cardio Narrative: distant heart sounds. The rate is controlled and at times sounds regular however he is in AF. GI normal to inspection, nondistended, normoactive bowel sounds, soft to palpation, non-tender and non-distended GI Narrative: no guarding with palpation. BS's are normal. I examined the abd wound when the vac was changed yesterday. There is no purulent DC. there is no max-incisional erythema. There is no odor. The distal portion of the wound is granulating and filling in. the proximal end is still very deep but does not appear to be infected. Extremity no calf tenderness and no pedal edema Extremity Narrative: The lymphedema in the RUE is much better. Skin Skin Narrative: No rashes and no skin breakdown. General Skin Exam: no breakdown Rashes: no rashes Wounds: wounds noted Wound Narrative: The wound vac was changed yesterday Neuro Neuro Narrative: He has severe dysarthria and when he is agitated he talks faster and his speech is largely unintelligible. His attention span is short. His biggest problem at this time is the cognitive deficit and poor short term memory. Psych cooperative and denies hallucinations Psych Narrative: He has been pleasant and polite up until a few days ago. He has been cooperative for the most part until 04/12/21. He has been getting very agitated and yelling at staff. He has Poor safety awareness. Has been refusing to do things like feed himself, dress himself and do any kind of therapy. Attitude: agitated Mood & Affect: depressed and anxious Weight / BMI Weight Weight: 197 lb 15.602 oz Body Mass Index (BMI) 35.6 ABG / Lab / Microbiology Data Result Diagrams: 04/12/21 05:30 04/12/21 05:30 Laboratory: Laboratory Results - last 24 hr 04/15/21 17:04: POC Glucose 152 H 04/15/21 21:22: POC Glucose 129 H 04/16/21 06:57: POC Glucose 134 H 04/16/21 07:28: PT 39.5 H, INR 4.2 H* Microbiology: Microbiology 04/15/21 17:00 Nasal Secretion SARS-CoV-2 Antigen (Rapid) - Final D/C Instructions Please Follow Up With: Dr. Toledo or Nikki Meaningful Use Info Meaningful Use Diagnoses (Choose all that apply): Ischemic CVA CVA Therapy Assessed for PT,OT and/or ST?: Yes Ischemic Stroke Antithrombotic order at d/c?: Yes Dx of Atrial fib/flutter?: Yes Anticoagulant at discharge?: Yes Statins at discharge?: Yes Primary Dx Acute Ischemic CVA?: Yes IV tPA ordered during stay?: No Reason IV t-PA not ordered: Medical Contraindication Discharge Plan Admission Admit Date/Time: 03/29/21 15:05 Primary Reason for Your Visit: debility due to large ischemic CVA involving the L MCA territory Attending Provider: Yoon Gilliam Primary Care Provider: Yoon Alba NP Consulting Providers: Calabretta,Willy Instructions Patient Instructions: ED Chest Pain, Noncardiac Additional Instructions / Restrictions: 1. Discharge to TCU 04/16/21 Discharge Orders/Prescriptions Prescriptions: New multivitamin Tablet 1 tab PO DAILY Qty: 1 RF: 0 lisinopril 20 mg Tablet 20 mg PO BID Qty: 0 RF: 0 acetaminophen [Tylenol] 325 mg Tablet 650 mg PO Q4H PRN PRN (Reason: Pain 1-10 Or Fever) Qty: 1 RF: 0 Arthritis Pain Compound 2 click topical TID Qty: 0 RF: 0 ascorbic acid (vitamin C) 500 mg Tablet 500 mg PO BIDCM Qty: 0 RF: 0 bisacodyl 10 mg Suppository 10 mg TX .PRN X 1 PRN (Reason: Constipation) Qty: 0 RF: 0 buspirone 5 mg Tablet 5 mg PO BID Qty: 0 RF: 0 Glucerna 1.2 Wallace 0.06-1.2 gram-kcal/mL Liquid 120 ml PO 4X/DAY Qty: 0 RF: 0 magnesium chloride [Mag 64] 64 mg Tablet,Delayed Release (Dr/Ec) 128 mg PO TID Qty: 0 RF: 0 magnesium hydroxide 400 mg/5 mL Suspension 30 ml PO .PRN X 1 PRN (Reason: Constipation) Qty: 0 RF: 0 melatonin 3 mg Tablet 3 mg PO QHS Qty: 0 RF: 0 menthol-zinc oxide [Calmoseptine] 0.44-20.6 % Ointment 1 applic topical BID@0600,2200 Qty: 0 RF: 0 mirtazapine 15 mg Tablet 15 mg PO 2000 Qty: 0 RF: 0 Eliquis 5 mg tablet 5 mg PO BID Qty: 1 RF: 0 Continued cyanocobalamin (vit B-12) 100 mcg tablet 100 mcg tablet 100 mcg PO QDAY RF: 0 metformin 1,000 mg tablet 1,000 mg PO BID RF: 0 omega-3 fatty acids [Fish Oil Concentrate] 1,000 mg capsule 500 mg PO DAILY RF: 0 ferrous sulfate 324 mg (65 mg iron) tablet,delayed release (DR/EC) 324 mg PO BID RF: 0 atorvastatin 80 mg tablet 80 mg PO QHS RF: 0 pantoprazole 40 mg Tablet,Delayed Release (Dr/Ec) 40 mg PO DAILY RF: 0 aspirin 81 mg tablet,delayed release (DR/EC) 81 mg PO BREAKFAST RF: 0 amlodipine 10 mg tablet 10 mg PO QDAY Qty: 90 RF: 3 Discontinued acetaminophen [Tylenol] 325 mg tablet 650 mg PO DAILY RF: 0 multivitamin with folic acid 1 TABLET tablet 1 tab PO DAILY RF: 0 lisinopril 20 mg Tablet 20 mg PO DAILY RF: 0 amoxicillin-pot clavulanate 875-125 mg tablet 875 mg PO BID RF: 0 warfarin 1 mg tablet 1 mg PO .COMPLEX Qty: 90 RF: 3 Hold Instructions: Resume on 04/03/21. Referrals / Follow Up: Yoon Alba PET FOOD DEBONER, [facility]-C [Primary Care Provider] - Disposition Disposition (needs filled in before D/C Order can be placed): Nursing Home F acility Charges/Coding Visit Charges Inpatient E&M: 43226 Disch Hosp
--- NOTE | 2021-04-16 13:01 | NURSING ---
Dr Gilliam aware of lab results
[2021-04-16 13:05] VITALS: BMI 35.6
[2021-04-16 13:06] LABS: Bedside Glucose 133 mg/dL (70-110)
--- NOTE | 2021-04-16 15:55 | CON.PCM.PA_ITS ---
Assessment & Plan Assessment/Plan (1) Speech apraxia: (2) Depression: (3) Debility: (4) Acute right-sided weakness: (5) Aphasia: (6) Ischemic cerebrovascular accident (CVA): (7) Non-healing surgical wound: (8) Anxiety: PLAN: PARAS YA, is a 80 M who was referred to [facility] by for symptoms of anxiety, agitation and functional decline status post CVA and sigmoid colectomy with end colostomy. Need to discuss with POA, son Paras if he wishes Palliative to follow. Will attempt to retry call tomorrow. Plan is as follows: 1)Debility/ aphasia/ right sided weakness: Continue Therapies PT/OT/ST. If patient continues to decline, hospice services can be discussed/offered. 2)CVA/colostomy/ wound care & vac/DM/AFib/HTN/Hyperlipidemia: Defer to wound care, PCP and specialists for management. 3)Anxiety: Continue Buspar 5mg BID. May consider TID if needed. Will need time to evaluate effectiveness. Could benefit from counseling and emotional support through or set up by Palliative services. May consider low dose PRN Ativan if quality of life is affected by anxiety. 4) Depression: Continue Mirtazapine. May consider an SSRI after INR is stabilized if needed. Counseling as stated above. Thank you for the opportunity to participate in this patient's care, please do not hesitate to contact [facility] with any further questions or concerns. Greater than 50% of F2F visit dedicated to education and counseling of palliative care services versus hospice services and comfort measures and quality of life TIME IN: 3:15 PM TIME OUT: 4:45 PM HPI Consult Data Date of Consult: 04/16/21 HPI Narrative HPI Narrative: PARAS YA, is a 80 M who was referred to [facility] by for symptoms of anxiety, agitation and functional decline status post CVA and sigmoid colectomy with end colostomy and Presley's procedure. Past medical history listed below. Summary of hospital admission included for continuity of care: Paras presented to the emergency department at [facility] on 03-17-21 complaining of abdominal pain associated with nausea, vomiting and loose watery stools. CT scan of the abdomen and pelvis showed ascites and mild to moderate free fluid in the pelvis. Concern was that of an abscess at the anterior pelvis. He was admitted to the hospital with a diagnosis of acute sepsis secondary to an abdominal source and Dr. Cervantes was consulted. He was taken to surgery on 03/19/2021 for diverticulitis with peritonitis and abscess. During surgery he was noted to have a 5 cm mass in the colon and pathology demonstrated adenocarcinoma. 1 of 1 lymph nodes was negative for metastatic carcinoma. Prior to surgery he had a carotid ultrasound that showed greater than 70% right internal carotid artery stenosis and no flow in the left internal carotid artery. Postoperatively he was transferred to the intensive care unit intubated. The following morning when he was extubated he was noted to have right-sided weakness and aphasia. He had a CT scan of the brain which was concerning for a large left MCA territory ischemic stroke with no evidence of intracranial hemorrhage. Due to recent surgery he was not a candidate for TPA. MRI on 03/21/2021 showed an acute ischemic infarction in the left middle cerebral artery territory involving the posterior temporal lobe, posterior left frontal lobe and parietal lobe. An MRI of the head showed occlusion of the left petrous, cavernous and supraclinoid carotid. MRA of the neck showed atherosclerotic disease more severe on the left with occlusion of the left internal carotid just distal to the origin. Transthoracic echocardiogram showed an EF of 55 to 60% with mild aortic stenosis. There was mild aortic regurgitation, mild mitral regurgitation and moderate tricuspid regurgitation. The Pulmonary artery systolic pressure was calculated to be 55 consistent with moderate pulmonary hypertension. Recommended discontinuing anticoagulation due to the large size of the stroke and restarting anticoagulation 2 weeks post stroke. On 03/29/2021 he was transferred to the acute rehab unit at [facility] for greater than 3 hours of therapy daily to restore independence/function at or near his prior level. However, since 04/12 when he learned that he was transferring to TCU to continue therapy, he stopped progressing in therapy and complaining of weakness. Staff report behaviors related to complaining of arm pain and inability to feed himself. Also requesting additional surgeries and that noone is addressing his concerns. An EKG on 04/16/21 shows AF with controlled VR and NS ST and T wave changes only. INRs are still elevated without anticoagulant and plan is for daily INRs until result of 2 then resume Eliquis. Awoken patient from a nap to introduce Palliative care. Patient is obese, with facial hair, glasses and very [place]MAQ. Difficult to understand with his dysarthric speech and aphasia. Words and phrases are distinguishable and several were not. Allowed patient to express his feelings and listened and encouraged patient. Discussed concern for living like this. or keeping my alive forever. Wound vac and colostomy intact to abdomen. Bowel sounds normoactive. Denies any complaints or distress. Family goal voiced by son is to place both parents together in a long-term care facility. Attempted to reach out to son to discuss palliative services. [facility] Medical History (Updated 04/16/21 @ 20:[address] Sukumar Sauer MD) Colostomy in place Diabetes mellitus, type II Diverticulitis Essential (primary) hypertension History of CVA (cerebrovascular accident) (10/21/13) History of prostate cancer Hyperlipidemia Longstanding persistent atrial fibrillation Mild aortic stenosis Nonobstructive atherosclerosis of coronary artery Obesity (BMI 30.0-34.9) Occlusion and stenosis of bilateral carotid arteries Patent foramen ovale Sepsis secondary to UTI Home Medications cyanocobalamin (vitamin B-12) 100 mcg tablet 100 mcg PO QDAY 09/09/17 [History Last Taken Unknown] metformin 1,000 mg tablet 1,000 mg PO BID 09/15/17 [History Last Taken 11/25/20] omega-3 fatty acids 1,000 mg capsule 500 mg PO DAILY 02/29/20 [History Last Taken Unknown] ferrous sulfate 324 mg (65 mg iron) tablet,delayed release 324 mg PO BID 11/13/20 [History Last Taken Unknown] atorvastatin 80 mg PO QHS 03/07/21 [History Last Taken Unknown] pantoprazole 40 mg PO DAILY 03/19/21 [History Last Taken Unknown] aspirin 81 mg PO BREAKFAST 03/29/21 [History Last Taken Unknown] Arthritis Pain Compound 2 click TOPICAL TID #0 04/15/21 [Rx Last Taken Unknown] acetaminophen [Tylenol] 650 mg PO Q4H PRN PRN #1 tab 04/15/21 [Rx Last Taken Unknown] amlodipine 10 mg tablet 10 mg PO QDAY #90 tab 04/15/21 [Rx Last Taken Unknown] ascorbic acid (vitamin C) 500 mg PO BIDCM #0 tab 04/15/21 [Rx Last Taken Unknown] bisacodyl 10 mg RI .PRN X 1 PRN #0 ea 04/15/21 [Rx Last Taken Unknown] buspirone 5 mg PO BID #0 tab 04/15/21 [Rx Last Taken Unknown] lisinopril 20 mg PO BID #0 tab 04/15/21 [Rx Last Taken Unknown] magnesium chloride [Mag 64] 128 mg PO TID #0 tab 04/15/21 [Rx Last Taken Unknown] magnesium hydroxide 30 ml PO .PRN X 1 PRN #0 ml 04/15/21 [Rx Last Taken Unknown] nut.tx.gluc intol,lf,soy-fiber [Glucerna 1.2 Wallace] 120 ml PO 4X/DAY #0 ml 04/15/21 [Rx Last Taken Unknown] apixaban [Eliquis] 5 mg PO BID 04/16/21 [History Last Taken Unknown] melatonin 3 mg PO QHS 04/16/21 [History Last Taken Unknown] menthol-zinc oxide [Calmoseptine] 1 applic TOPICAL BID@0600,2200 04/16/21 [History Last Taken Unknown] mirtazapine 15 mg PO 199904/16/21 [History Last Taken Unknown] multivitamin 1 tab PO DAILY 04/16/21 [History Last Taken Unknown] Allergy/AdvReac Type Severity Reaction Status Date / Time No Known Allergies Allergy Verified 03/07/21 19:11 Family History Sister Diabetes Heart disease Brother Colon cancer Father CVA (cerebral vascular accident) Surgical History (Updated 04/16/21 @ 20:[address] Sukumar Sauer MD) History of cardioversion (01/11/10) History of knee replacement History of knee replacement procedure of left knee History of left heart catheterization (11/26/20) History of prostatectomy Status post Ame procedure Social History household members: spouse housing: other history of recent travel: No Smoking Status: Never smoker alcohol intake: never caffeine: Yes Type: carbonated beverages and coffee ROS Review of Systems ROS Unobtainable: other Details: ROS very difficult to obtain related to expressive aphasia, dysarthria related to cognitive dysfuntion related to CVA Cardiovascular Cardiovascular: Denies chest pain at rest or chest pain with activity Respiratory/Chest Respiratory/Chest: Denies chest congestion, chest tightness, cough or dyspnea Gastrointestinal Gastrointestinal: Denies abdominal pain or cramping Physical Exam Const alert and no apparent distress General Appearance: cooperative, comfortable and well kempt Orientation / Consciousness: awake, oriented to person and oriented to place Exam Limitations: other limitations Nutritional Appearance: obese HEENT General Ear: hearing grossly impaired Mouth: dry mucous membranes Teeth and Gingiva: edentulous Eyes General Eye: normal appearance of both eyes Visual Acuity: other Other Details: wears glasses Chest Chest: symmetrical chest wall rise Resp normal respiratory effort and normal air movement Effort and Inspection: able to speak in complete sentences and symmetric chest movement Auscultation: clear to auscultation bilaterally Cardio regular rate, regular rhythm, S1 normal heart sound and S2 normal heart sound GI Inspection: other Other Details: wound dressing intact to abdomen, Colostomy intact Auscultation: normoactive bowel sounds Palpation: soft Extremity Extremity Narrative: slight lymphedema RUE, refused to test for UE strength. Reports hands hurt Psych Speech: other dysarthria Mood & Affect: depressed and anxious
[2021-04-16 16:10] VITALS: BP 145/67; PULSE 72; RESP 18; TEMP 36.8; O2SAT 96
--- NOTE | 2021-04-16 16:11 | NURSING ---
discharged to TCU report called to Mercedes CLAYTON
== END 2021-04-16 16:12 | disposition skilled nursing facility (03) | DRG 57 ==
PROVIDERS: Admitting Provider Internal Medicine; PCP Nurse Practitioner; Visit Provider Internal Medicine
DX: I69.351 Hemiplegia and hemiparesis following cerebral infarction affecting right dominant side (principal); Q21.1 Atrial septal defect; I48.11 Longstanding persistent atrial fibrillation; C18.7 Malignant neoplasm of sigmoid colon; I69.320 Aphasia following cerebral infarction; I69.319 Unspecified symptoms and signs involving cognitive functions following cerebral infarction; I69.322 Dysarthria following cerebral infarction; I69.392 Facial weakness following cerebral infarction; E11.9 Type 2 diabetes mellitus without complications; I10 Essential (primary) hypertension; E78.5 Hyperlipidemia, unspecified; I25.10 Atherosclerotic heart disease of native coronary artery without angina pectoris; E83.42 Hypomagnesemia; R48.2 Apraxia; D50.9 Iron deficiency anemia, unspecified; E66.9 Obesity, unspecified; I27.20 Pulmonary hypertension, unspecified; F32.9 Major depressive disorder, single episode, unspecified; F41.9 Anxiety disorder, unspecified; Z79.01 Long term (current) use of anticoagulants; Z93.3 Colostomy status; Z85.46 Personal history of malignant neoplasm of prostate; Z68.34 Body mass index [BMI] 34.0-34.9, adult; Z79.899 Other long term (current) drug therapy; Z79.84 Long term (current) use of oral hypoglycemic drugs; Z79.82 Long term (current) use of aspirin
CPT/HCPCS: 36415; 73030; 80048; 82728; 82962; 83540; 83550; 83735; 84100; 85014; 85018; 85025; 85610; 87426; 92507; 92523; 92526; 92610; 93005; 93971; 97110; 97112; 97116; 97162; 97166; 97530; 97535; 97802; 97803; 99251; J7050; A4216; G0463

== ENCOUNTER 2021-04-16 16:15 | Inpatient (IN) | payer MEDICARE, OTHER, SELFPAY ==
[2021-04-16 16:23] VITALS: BMI 31.6
[2021-04-16] MEDS: Glucerna Shake 120 ML LIQUID PO ×2 (17:49→21:07)
[2021-04-16] MEDS: Ferrous Sulfate 325 MG Tablet PO (17:50)
[2021-04-16] MEDS: APIXABAN 5 MG TABLET PO (17:50)
[2021-04-16] MEDS: metFORMIN HCl 1,000 MG Tablet 1000 MG PO (17:51)
[2021-04-16 18:22] VITALS: BP 166/76; PULSE 89; RESP 20; TEMP 36.9; O2SAT 97
[2021-04-16 20:15] VITALS: PULSE 89; RESP 20; O2SAT 98
--- NOTE | 2021-04-16 20:32 | HP.PCM_ITS ---
HPI - General General Date of Admission: 04/16/21 HPI Narrative 03/17/2021 VIDHYA YA, is a 80 Male who was admitted to [facility] with abdominal pain, nausea, vomiting, diarrhea. CT abdomen/pelvis showed ascites, free fluid in pelvis. Abdominal fluid had air, concern for pelvic abscess. 03/19/2021 Dr. Cervantes performed sigmoid colectomy, end colostomy. Ame procedure for diverticulitis, peritonitis, abscess. 5cm colon mass showed adenocarcinoma. 1 lymph node showed metastasis. 03/20/2021 Extubated, right sided weakness, aphasic. Brain imaging showed large left middle cerebral artery stroke, no hemorrhage. Not TPA candidate. MRA OF NECK SHOWED LEFT CAROTID ARTERY OCCLUSION. ECHO EF 55 TO 60%, MILD AORTIC STENOSIS, PULMONARY ARTERY SYSTOLIC PRESSURE 55MM HG. TELENEUROLOGY RECOMMENDED STOPPING ANTICOAGULATION. 03/29/2021 aDMIT TO [facility] FOR REHAB. LOVENOX THRU 04/03/2021 FOR DVT PROPHYLAXIS, THEN WARFARIN. 04/01/2021 AUGMENTIN FOR PERITONITIS. 04/04/2021 CONCERN FOR RIGHT SHOULDER METS WITH RECENT COLON CANCER DIAGNOSIS. 04/08/2021 X-RAY RIGHT SHOULDER NEGATIVE. RECOMMEND SNF AFTER RU. RIGHT SIDED WEAKNESS IMPROVING. 04/11/2021 WORKING HARD IN THERAPY, [facility]. MIRTAZAPINE STARTED FOR DEPRESSION. 04/12/2021 MAGNESIUM IV FOR MAGNESIUM 0.9. 04/15/2021 BLOOD PRESSURE ELEVATED, UPSET ABOUT GOING TO TCU INSTEAD OF HOME. DISABLED, UNABLE TO CARE FOR PATIENT AT HOME. 04/16/2021 ADMIT TO TCU WITH DEBILITY, HERE FOR REHABILITATION, STRENGTHENING, PRIOR TO DISCHARGE HOME WITH . [facility] Medical History (Updated 04/16/21 @ 20:[address] Sukumar Sauer MD) Colostomy in place Diabetes mellitus, type II Diverticulitis Essential (primary) hypertension History of CVA (cerebrovascular accident) (10/21/13) History of prostate cancer Hyperlipidemia Longstanding persistent atrial fibrillation Mild aortic stenosis Nonobstructive atherosclerosis of coronary artery Obesity (BMI 30.0-34.9) Occlusion and stenosis of bilateral carotid arteries Patent foramen ovale Sepsis secondary to UTI Home Medications cyanocobalamin (vitamin B-12) 100 mcg tablet 100 mcg PO QDAY 09/09/17 [History Last Taken Unknown] metformin 1,000 mg tablet 1,000 mg PO BID 09/15/17 [History Last Taken 11/25/20] omega-3 fatty acids 1,000 mg capsule 500 mg PO DAILY 02/29/20 [History Last Taken Unknown] ferrous sulfate 324 mg (65 mg iron) tablet,delayed release 324 mg PO BID 11/13/20 [History Last Taken Unknown] atorvastatin 80 mg PO QHS 03/07/21 [History Last Taken Unknown] pantoprazole 40 mg PO DAILY 03/19/21 [History Last Taken Unknown] aspirin 81 mg PO BREAKFAST 03/29/21 [History Last Taken Unknown] Arthritis Pain Compound 2 click TOPICAL TID #0 04/15/21 [Rx Last Taken Unknown] acetaminophen [Tylenol] 650 mg PO Q4H PRN PRN #1 tab 04/15/21 [Rx Last Taken U nknown] amlodipine 10 mg tablet 10 mg PO QDAY #90 tab 04/15/21 [Rx Last Taken Unknown] ascorbic acid (vitamin C) 500 mg PO BIDCM #0 tab 04/15/21 [Rx Last Taken Unknown] bisacodyl 10 mg TN .PRN X 1 PRN #0 ea 04/15/21 [Rx Last Taken Unknown] buspirone 5 mg PO BID #0 tab 04/15/21 [Rx Last Taken Unknown] lisinopril 20 mg PO BID #0 tab 04/15/21 [Rx Last Taken Unknown] magnesium chloride [Mag 64] 128 mg PO TID #0 tab 04/15/21 [Rx Last Taken Unknown] magnesium hydroxide 30 ml PO .PRN X 1 PRN #0 ml 04/15/21 [Rx Last Taken Unknown] nut.tx.gluc intol,lf,soy-fiber [Glucerna 1.2 Wallace] 120 ml PO 4X/DAY #0 ml 04/15/21 [Rx Last Taken Unknown] apixaban [Eliquis] 5 mg PO BID 04/16/21 [History Last Taken Unknown] melatonin 3 mg PO QHS 04/16/21 [History Last Taken Unknown] menthol-zinc oxide [Calmoseptine] 1 applic TOPICAL BID@0600,2200 04/16/21 [History Last Taken Unknown] mirtazapine 15 mg PO 2000 04/16/21 [History Last Taken Unknown] multivitamin 1 tab PO DAILY 04/16/21 [History Last Taken Unknown] Allergy/AdvReac Type Severity Reaction Status Date / Time No Known Allergies Allergy Verified 03/07/21 19:11 Family History Sister Diabetes Heart disease Brother Colon cancer Father CVA (cerebral vascular accident) Surgical History (Updated 04/16/21 @ 20:[address] Sukumar Sauer MD) History of cardioversion (01/11/10) History of knee replacement History of knee replacement procedure of left knee History of left heart catheterization (11/26/20) History of prostatectomy Status post Ame procedure Social History household members: spouse housing: other history of recent travel: No Smoking Status: Never smoker alcohol intake: never caffeine: Yes Type: carbonated beverages and coffee ROS Constitutional Constitutional: Denies chills, fever(s) or weight gain ENT HEENT: Denies headache(s), nasal congestion or nasal discharge Cardiovascular Cardiovascular: Denies chest pain or palpitations Respiratory/Chest Respiratory/Chest: Denies cough, excessive phlegm production or shortness of breath with exertion Gastrointestinal Gastrointestinal: Denies abdominal pain, nausea or vomiting Genitourinary Genitourinary: Denies dysuria Musculoskeletal Musculoskeletal: Denies joint pain or joint swelling Integumentary Integumentary: Denies rash or wounds Neurologic Neurologic: Denies focal weakness, numbness or tingling Psychiatric Psychiatric: Reports auditory hallucinations; Denies anxiety, depression, homicidal ideation or suicidal ideation Vital Signs Vital Signs Vital Signs: 04/16/21 18:22 Temperature 98.4 F Temperature Source Temporal Pulse Rate 89 Respiratory Rate 20 H Blood Pressure 166/76 H Blood Pressure Mean 106 Blood Pressure Source Monitor Blood Pressure Position Semi-Fowlers Blood Pressure Location Left Arm Pulse Ox 97 Oxygen Delivery Method Room Air Weight Weight: 83.9 kg Body Mass Index (BMI) 31.6 Physical Exam Const alert and oriented x3 General Appearance: cooperative HEENT normocephalic Eyes PERRL and EOMs intact bilaterally Neck supple, no JVD and no carotid bruits Resp normal respiratory effort, normal air movement and clear to auscultation bilaterally Cardio regular rate and regular rhythm GI normal to inspection, nondistended, normoactive bowel sounds, non-tender and non-distended GI Narrative: WOUND VAC MIDLINE ABDOMINAL INCISIONAL WOUND, LLQ COLOSTOMY. Extremity normal capillary refill General Extremity: Negative for edema Skin no rashes or lesions noted General Skin Exam: no breakdown Neuro Neuro Narrative: RIGHT HEMIPARESIS Psych affect normal Appearance: appropriate Assessment & Plan Assessment/Plan (1) Debility: (2) Left acute arterial ischemic stroke, MCA (middle cerebral artery): (3) Perforation of sigmoid colon due to diverticulitis: (4) Colon cancer: (5) Peritonitis: (6) Diabetes mellitus: (7) Hypertension: (8) Hyperlipidemia: (9) Prostate cancer: (10) Coronary artery disease: (11) Bilateral carotid artery stenosis: (12) Iron deficiency anemia: (13) GERD (gastroesophageal reflux disease): PLAN: 80 YEAR OLD MALE WITH BELOW PAST MEDICAL HISTORY HOSPITALIZED FOR PERFORATED DIVERTICULITIS, LEFT MCA STROKE, COLON CANCER, ADMITTED TO [facility], THEN ADMITTED TO TCU WITH DEBILITY, HERE FOR REHABILITATION, STRENGTHENING, PRIOR TO DISCHARGE HOME WITH . * DEBILITY - PT/OT. * PAIN - TYLENOL 650MG Q4H PRN PAIN (1-10). * BOWEL - DULCOLAX 10MG TN DAILY PRN. * ADULT IMMUNIZATION - ADMINSTER PREVNAR 13, PNEUMOVAX 23, FLUZONE, COVID19 VACCINE APPROPRIATE. * DVT PROPHYLAXIS - ALREADY ANTICOAGULATED. * HYPERTENSION - AMLODIPINE 10MG DAILY. * ATRIAL FIBRILLATION - ELIQUIS 5MG TWICE DAILY WHEN INR < 2. * HYPERLIPIDEMIA - ATORVASTATIN 80MG QHS. * IRON DEFICIENCY ANEMIA - FERROUS SULFATE 325MG TWICE DAILY. * NUTRITION - GLUCERNA 120ML 4X/DAY. * INSOMNIA - MELATONIN 3MG QHS. * SKIN IRRITATION - CALMOSEPTINE TWICE DAILY. * DIABETES MELLITUS - METFORMIN 1000MG TWICE DAILY. * DEPRESSION - MIRTAZAPINE 15MG QHS, STABLE CHRONIC USE, GDR NOT RECOMMENDED. * NUTRITION - MVI DAILY. * GERD - PANTOPRAZOLE 40MG DAILY. * COLON CANCER - OUTPATIENT FOLLOW UP FOR ADJUVANT THERAPY.
[2021-04-16] MEDS: Mirtazapine 15 MG Tablet PO (21:05)
[2021-04-16] MEDS: MELATONIN 3 MG TABLET PO (21:06)
[2021-04-16] MEDS: Menthol/Lanolin/Calamine/Znox 113 GM Tube 1 APPLIC TOPICAL (21:06)
[2021-04-16] MEDS: Atorvastatin Calcium 80 MG Tablet PO (21:06)
[2021-04-17 05:00] VITALS: BP 167/68; PULSE 72
[2021-04-17 05:59] LABS: Absolute Lymphocyte Count 1.51 X10^3/uL (0.83-4.51); Absolute Neutrophil Count 9.6 X10^3/uL (2.0-7.7); Basophil# 0.05 X10^3/uL; Basophil% 0.4 % (0-1); Eosinophil# 0.16 X10^3/uL; Eosinophils% 1.3 % (0-5); Hematocrit 27.8 % (40-54); Hemoglobin 8.4 g/dL (13.0-16.5); Lymphocyte # 1.51 X10^3/ul (0.83-4.51); Lymphocyte % 12.2 % (19-41); Mean Corp Hgb Conc 30.2 g/dL (32-36); Mean Corpuscular Hgb 26.5 pg (27.0-32.0); Mean Corpuscular Volume 87.7 fL (80-94); Mean Platelet Vol. 10.5 fl (6.2-12.0); Monocyte# 1.01 X10^3/uL; Monocyte% 8.1 % (0-10); NRBC Flagged by Analyzer 0 % (0-5); Neutrophil % 77.3 % (47-70); Platelet Count 281 K/mm3 (150-450); RBC Distribution Width CV 15.3 % (11.6-14.6); RBC Distribution Width SD 48.9 fl (35.1-43.9); Red Blood Count 3.17 M/mm3 (4.6-6.2); White Blood Count 12.4 K/mm3 (4.4-11.0)
[2021-04-17 06:15] LABS: Prothrombin Time (Protime)PT. 59.9 SECONDS (11.7-14.9)
[2021-04-17 06:24] LABS: Anion Gap 9 (5-15); BUN 13 mg/dL (7-18); Calcium,Total 9.2 mg/dL (8.5-10.1); Chloride 104 mmol/L (98-107); Creatinine, Serum 0.54 mg/dL (0.70-1.30); EST Glomerular Filtration Rate 155 mL/min (>60); Est Glom Filt Rate - Afr Amer 188 mL/min (>60); Estimated Creatinine Clearance 50.98 ml/min; Glucose 170 mg/dL (74-106); Potassium 4.2 mmol/L (3.5-5.1); Sodium Level 136 mmol/L (136-145)
[2021-04-17] MEDS: Menthol/Lanolin/Calamine/Znox 113 GM Tube 1 APPLIC TOPICAL ×2 (06:54→20:46)
[2021-04-17] MEDS: Glucerna Shake 120 ML LIQUID PO ×4 (06:55→20:48)
[2021-04-17] MEDS: amLODIPine 10 MG Tablet PO (06:55)
[2021-04-17] MEDS: Pantoprazole Sodium 40 MG Tablet PO (06:55)
--- NOTE | 2021-04-17 07:31 | NURSING ---
Notified Dr. Sauer of elevated INR this AM, order for one time dose of 10mg vitamin K IM. Updated Dr. Sauer that PICC will flush but unable to get blood return, holding off on trying heparin at this time due to elevated INRs. No new orders.
[2021-04-17] MEDS: Phytonadione (Vit K) 10 MG/ML Ampul IM (07:49)
--- NOTE | 2021-04-17 07:57 | RAD_ITS ---
STUDY: X-RAY - LEFT SHOULDER REASON FOR EXAM: Male, 80 years old. Pain TECHNIQUE: 3 view(s) of the shoulder. COMPARISON: None. FINDINGS: There is cephalad migration of the humeral head consistent with rotator cuff pathology. There is degenerative arthrosis of the acromioclavicular joint without inferior osseous spur formation. Normal acromion. Normal humeral head and visualized proximal humerus. The soft tissue structures are unremarkable. Normal visualized pulmonary apex. RAD/Shoulder min 2 Views IMPRESSION: Cephalad migration of the humeral head suggesting chronic rotator cuff pathology. Acromioclavicular joint arthrosis. Electronically Signed: Oli Kiran MD ([place]) at 9:37 EDT , Service support ,
--- NOTE | 2021-04-17 07:57 | RAD_ITS ---
STUDY: X-RAY - LEFT WRIST REASON FOR EXAM: Male, 80 years old. Pain TECHNIQUE: 3 view(s) of the wrist were obtained. COMPARISON: None. FINDINGS: Normal visualized distal radius and ulna. There is degenerative arthrosis of the radiocarpal articulation. Chondrocalcinosis of the TFCC. Normal carpal bones. There is degenerative arthrosis of the carpal articulations. There is degenerative arthrosis of the carpometacarpal articulation of the thumb. Normal second through fifth carpometacarpal articulations. Normal visualized metacarpal bones. The soft tissue structures are unremarkable. There are vascular calcifications. RAD/Wrist min 3 Views IMPRESSION: 1. Degenerative arthrosis without erosive process. 2. Chondrocalcinosis. Electronically Signed: Oli Kiran MD ([place]) at 9:36 EDT , Service support ,
--- NOTE | 2021-04-17 07:57 | RAD_ITS ---
STUDY: X-RAY - LEFT HAND REASON FOR EXAM: Male, 80 years old. Pain TECHNIQUE: 3 view(s) of the hand. COMPARISON: None. FINDINGS: There is joint space narrowing of the radiocarpal articulation consistent with degenerative arthrosis. Normal distal radioulnar joint. Normal visualized carpal bones. There is degenerative joint disease of the scaphotrapezium / trapezoid articulation. The remainder of the carpal articulations are normal. There is degenerative arthrosis of the carpometacarpal (CMC) articulation of the thumb. Normal second through fifth carpometacarpal joints. Normal metacarpi. There is degenerative arthrosis of the metacarpophalangeal (MCP) joints. Normal interphalangeal joint of the thumb. Normal proximal and distal phalanges of the thumb. There is degenerative arthrosis of the metacarpophalangeal (MCP) joints. There is diffuse articular joint space narrowing of the proximal and distal interphalangeal joints of the second through fifth fingers, but without erosive changes or periarticular soft tissue swelling. Normal phalanges of the second through fifth fingers. The soft tissue structures are unremarkable. RAD/Hand Min 3 Views IMPRESSION: Multifocal degenerative arthrosis without fracture or obvious erosive process. Electronically Signed: Oli Kiran MD ([place]) at 9:37 EDT , Service support ,
[2021-04-17] MEDS: metFORMIN HCl 1,000 MG Tablet 1000 MG PO ×2 (08:11→16:40)
[2021-04-17] MEDS: Multivitamins,Therapeutic Tablet 1 TABLET PO (08:11)
[2021-04-17] MEDS: Aspirin E.C. 81 MG Tablet PO (08:11)
[2021-04-17] MEDS: Ferrous Sulfate 325 MG Tablet PO ×2 (08:11→16:40)
--- NOTE | 2021-04-17 09:00 | RAD_ITS ---
STUDY: X-RAY - LEFT ELBOW REASON FOR EXAM: Male, 80 years old. Pain TECHNIQUE: 3 view(s) of the elbow. COMPARISON: None. FINDINGS: Normal visualized humerus, radius and ulna. There is degenerative arthrosis of the radiocapitellar and ulnotrochlear articulations. Diffuse soft tissue swelling. Small joint effusion noted. Arterial vascular calcifications. RAD/Elbow min 3 Views IMPRESSION: Degenerative changes without fracture or erosive process. Mild joint effusion. Electronically Signed: Oli Kiran MD ([place]) at 9:35 EDT , Service support ,
--- NOTE | 2021-04-17 10:38 | WOUNDNOTE ---
wound photo: abdomen
[2021-04-17] MEDS: Tuberculin,Purif.prot.deriv. 50 TU/ML Vial 0.1 ML ID (11:57)
--- NOTE | 2021-04-17 14:43 | PHA.CONS_ITS ---
Progress Note - Pharmacy Subjective: TCU Admission Objective: Allergies No Known Allergies Allergy (Verified 03/07/21 19:11) Current Medications Generic Name Dose Route Start Last Admin Trade Name Alejandro PRN Reason Stop Dose Admin Acetaminophen 650 mg 04/16/21 16:37 Acetaminophen 325 Mg Tablet PO Q4H PRN PRN Pain 1-10 Or Fever Amlodipine Besylate 10 mg 04/17/21 06:00 04/17/21 06:55 Amlodipine 10 Mg Tablet PO 10 mg DAILY [facility] Administration Apixaban 5 mg 04/16/21 18:00 04/17/21 06:54 Apixaban 5 Mg Tablet PO Not Given BID [facility] Aspirin 81 mg 04/17/21 08:00 04/17/21 08:11 Aspirin E.C. 81 Mg Tablet PO 81 mg BREAKFAST [facility] Administration Atorvastatin Calcium 80 mg 04/16/21 22:00 04/16/21 21:06 Atorvastatin Calcium 80 Mg Tablet PO 80 mg QHS [facility] Administration Bisacodyl 10 mg 04/16/21 16:46 Bisacodyl 10 Mg Suppository RC DAILY PRN Constipation Calamine/Phenol 1 applic 04/16/21 22:00 04/17/21 06:54 Menthol/Lanolin/Calamine/Znox 113 Gm Tube TOPICAL 1 applic BID@0600,2200 [facility] Administration Protocol Ferrous Sulfate 325 mg 04/16/21 18:00 04/17/21 08:11 Ferrous Sulfate 325 Mg Tablet PO 325 mg BIDCM [facility] Administration Heparin Sodium (Beef Lung) 50 units 04/16/21 16:49 Heparin Pf Lock 10 Units/Ml 50 Units/5 Ml Syringe IV UD PRN PICC Line Heparin Flush Melatonin 3 mg 04/16/21 22:00 04/16/21 21:06 Melatonin 3 Mg Tablet PO 3 mg QHS [facility] Administration Metformin HCl 1,000 mg 04/16/21 18:00 04/17/21 08:11 Metformin Hcl 1,000 Mg [facility] Mirtazapine 15 mg 04/16/21 20:00 04/16/21 21:05 Mirtazapine 15 Mg Tablet PO 15 mg 2000 [facility] Administration Multivitamins 1 tablet 04/17/21 08:00 04/17/21 08:11 Multivitamins,Therapeutic Tablet PO 1 [facility] Administration Nutritional Formula (Lactose Free) 120 ml 04/16/21 17:00 04/17/21 11:57 Glucerna Shake 120 Ml Liquid PO 120 ml 4X/DAY ALEISHA Administration Pantoprazole Sodium 40 mg 04/17/21 06:00 04/17/21 06:55 Pantoprazole Sodium 40 Mg Tablet PO 40 mg DAILY ALEISHA Administration Sodium Chloride 10 - 40 ml 04/16/21 16:49 0.9% Saline Lock 10 Ml Syringe IV UD PRN Open End PICC Flush Sodium Chloride 10 - 40 ml 04/16/21 16:49 0.9 % Nacl (Sterile) Posiflush 10 Ml IV UD PRN Port access or dressing change Tuberculin PPD 0.1 ml 04/24/21 10:00 Tuberculin,Purif.Prot.Deriv. 50 Tu/Ml Vial ID 04/24/21 10:01 X1 ONE Problem List (Last Updated 04/16/21 @ 20:[address] Sukumar Sauer MD) GERD (gastroesophageal reflux disease) (Acute) Iron deficiency anemia (Acute) Bilateral carotid artery stenosis (Acute) Coronary artery disease (Acute) Prostate cancer (Acute) Hyperlipidemia (Acute) Hypertension (Chronic) Diabetes mellitus (Acute) Peritonitis (Acute) Colon cancer (Acute) Perforation of sigmoid colon due to diverticulitis (Acute) Left acute arterial ischemic stroke, MCA (middle cerebral artery) (Acute) Debility (Acute) Vital Signs Temp Pulse Resp BP Pulse Ox 98.4 F 72 20 H 167/68 H 98 04/16/21 18:22 04/17/21 05:00 04/16/21 20:15 04/17/21 05:00 04/16/21 20:15 Oxygen Delivery Method Room Air Weight: 83.9 kg Body Mass Index (BMI) 31.6 Sodium 136 mmol/L (136-145) 04/17/21 05:18 Potassium 4.2 mmol/L (3.5-5.1) 04/17/21 05:18 Chloride 104 mmol/L (98-107) 04/17/21 05:18 Carbon Dioxide 23.0 mmol/L (21.0-32.0) 04/17/21 05:18 Anion Gap 9 (5-15) 04/17/21 05:18 BUN 13 mg/dL (7-18) 04/17/21 05:18 Creatinine 0.54 mg/dL (0.70-1.30) L 04/17/21 05:18 Est GFR (MDRD) Af Amer 188 mL/min (>60) 04/17/21 05:18 Est GFR (MDRD) Non-Af 155 mL/min (>60) 04/17/21 05:18 BUN/Creatinine Ratio 24.0 RATIO (10-20) H 04/17/21 05:18 Glucose 170 mg/dL (74-106) H 04/17/21 05:18 Assessment/Plan: 1. Pain: acetaminophen 650mg PO PRN pain 1-10. Please continue to monitor for increased pain and PRN usage. 2. Hypertension: amlodipine 10mg PO daily. Please continue to monitor BP (last 167/68) and swelling. 3. Atrial fibrillation: apixaban 5mg PO BID - on hold until INR <2. Vitamin K given today. Please continue to monitor INR, hemoglobin (last 8.4g/dL) and for S/S of stroke/bleeding. 4. Hyperlipidemia: atorvastatin 80mg PO QHS. Please continue to monitor lipid panel (last 03/22/21) and for muscle pain. 5. CVA (per hospital discharge summary): aspirin 81mg PO BREAKFAST. Please continue to monitor hemoglobin (last 8.4g/dL) and S/S of bleeding. 6. Iron deficiency anemia: ferrous sulfate 325mg PO BIDCM. Please continue to monitor hemoglobin (last 8.4g/dL), dark stools and constipation. 7. Insomnia: melatonin 3mg PO QHS. Please continue to monitor for excessive drowsiness. 8. Diabetes mellitus: metformin 1000mg PO BIDCM. Please continue to monitor hemoglobin A1c (last 6.5% 03/08/21), renal function and blood glucose (last 133mg/dL). 9. GERD: pantoprazole 40mg PO daily. Please continue to monitor for S/S of GERD and diarrhea. 10. Nutrition: multivitamin 1T PO DAILYCM. Please continue to monitor. Psychotropic Medications: 1. Depression: mirtazapine 15mg PO QHS. Please see physician note regarding GDR. Unnecessary Medications: None Bowel Regimen: bisacodyl 10mg PO RC daily PRN constipation. Please continue to monitor for constipation and PRN usage. Date of Note:: 04/17/21
--- NOTE | 2021-04-17 16:05 | NURSING ---
CALLED FOR UPDATE. VERIFIED CODE STATUS-R' TO BE FULL CODE.
[2021-04-17 16:24] LABS: Prothrombin Time (Protime)PT. 45.6 SECONDS (11.7-14.9)
--- NOTE | 2021-04-17 17:26 | NURSING ---
DR. FINK REVIEWED XRAY RESULTS. STARTED R' ON MEDROL DOSEPAK.
[2021-04-17 17:33] VITALS: BP 152/62; PULSE 81; RESP 24; TEMP 37; O2SAT 91
--- NOTE | 2021-04-17 17:36 | NURSING ---
DR. FINK OF INR 5.0 THIS EVENING.
[2021-04-17] MEDS: Mirtazapine 15 MG Tablet PO (20:46)
[2021-04-17] MEDS: MELATONIN 3 MG TABLET PO (20:47)
[2021-04-17] MEDS: Atorvastatin Calcium 80 MG Tablet PO (20:47)
[2021-04-18 05:21] VITALS: BP 137/62; PULSE 76
[2021-04-18] MEDS: Menthol/Lanolin/Calamine/Znox 113 GM Tube 1 APPLIC TOPICAL ×2 (05:21→23:34)
[2021-04-18] MEDS: Pantoprazole Sodium 40 MG Tablet PO (05:22)
[2021-04-18] MEDS: amLODIPine 10 MG Tablet PO (05:22)
[2021-04-18] MEDS: 0.9% Saline Lock 10 ML Syringe IV (05:23)
[2021-04-18 05:53] LABS: International Normalized Ratio 2.9; Prothrombin Time (Protime)PT. 29.1 SECONDS (11.7-14.9)
[2021-04-18 05:57] LABS: Magnesium 1.3 mg/dL (1.6-2.6)
[2021-04-18 06:20] LABS: Bedside Glucose 160 mg/dL (70-110)
[2021-04-18] MEDS: Aspirin E.C. 81 MG Tablet PO (08:12)
[2021-04-18] MEDS: metFORMIN HCl 1,000 MG Tablet 1000 MG PO ×2 (08:12→17:09)
[2021-04-18] MEDS: Multivitamins,Therapeutic Tablet 1 TABLET PO (08:12)
[2021-04-18] MEDS: Ferrous Sulfate 325 MG Tablet PO ×2 (08:13→17:09)
--- NOTE | 2021-04-18 09:20 | CASEMGMT ---
Addendum entered by Amparo Kowalski 04/18/21 09:40: Palliative Medicine did see pt on 04/16/21. Raegan from Palliative states that they will follow up with pt son on Monday 04/23 to discuss services and options again. CAMMIE Reveles Original Note: Social Work SW met with pt for initial assessment. Pt know to this SW from Inpatient Rehab. Pt aggitated and upset that he needs to be in TCU and wants to return home. SW spent time with pt and discussed why he is in TCU and after time together pt did calm down and agree to stay. SW did not complete MOLST form at this time as pt does appear to have impaired cognition. SW will followup with son to discuss discharge plan and explain Medicare benefit. Pt lives at home with his but she is disabled and unable to come in for visits nor can she provide any care for pt at home. Pt son Suman is involved in pt care but at this time is not able to provide care for pt at home. Pt will likely need ECF placement at time of discharge. SW to follow. CAMMIE Reveles
[2021-04-18] MEDS: Acetaminophen 325 MG Tablet 650 MG PO (09:32)
[2021-04-18] MEDS: MethylPREDNISolone DosePak 4 MG BOX PO ×2 (17:08→22:01)
[2021-04-18] MEDS: Glucerna Shake 120 ML LIQUID PO ×2 (17:08→21:59)
[2021-04-18 18:45] VITALS: BP 136/63; PULSE 76; RESP 20; TEMP 37; O2SAT 90
[2021-04-18] MEDS: MELATONIN 3 MG TABLET PO (21:59)
[2021-04-18] MEDS: Atorvastatin Calcium 80 MG Tablet PO (21:59)
[2021-04-18] MEDS: Mirtazapine 15 MG Tablet PO (21:59)
[2021-04-18 23:38] VITALS: RESP 18
[2021-04-19] MEDS: Menthol/Lanolin/Calamine/Znox 113 GM Tube 1 APPLIC TOPICAL ×2 (04:39→20:36)
[2021-04-19] MEDS: 0.9% Saline Lock 10 ML Syringe IV ×2 (04:42→10:57)
[2021-04-19] MEDS: Pantoprazole Sodium 40 MG Tablet PO (04:46)
[2021-04-19] MEDS: amLODIPine 10 MG Tablet PO (04:46)
[2021-04-19] MEDS: Glucerna Shake 120 ML LIQUID PO ×4 (04:49→20:36)
[2021-04-19 05:00] VITALS: BP 156/63; PULSE 82; RESP 18; O2SAT 95
[2021-04-19 05:04] LABS: International Normalized Ratio 1.9; Prothrombin Time (Protime)PT. 20.8 SECONDS (11.7-14.9)
[2021-04-19 06:20] LABS: Bedside Glucose 216 mg/dL (70-110)
[2021-04-19] MEDS: Ferrous Sulfate 325 MG Tablet PO ×2 (08:22→17:00)
[2021-04-19] MEDS: MethylPREDNISolone DosePak 4 MG BOX PO ×4 (08:22→20:50)
[2021-04-19] MEDS: Multivitamins,Therapeutic Tablet 1 TABLET PO (08:22)
[2021-04-19] MEDS: Aspirin E.C. 81 MG Tablet PO (08:22)
[2021-04-19] MEDS: metFORMIN HCl 1,000 MG Tablet 1000 MG PO ×2 (08:22→17:00)
[2021-04-19 10:46] VITALS: PULSE 84
--- NOTE | 2021-04-19 11:43 | NURSING ---
Addendum entered by Mercedes Sharp 04/19/21 13:55: DR FINK AWARE. Original Note: MEDROL DOSEPAK DID NOT HAVE ALL DOSES GIVEN. NOTIFIED PHARMACY. THE FIRST DOSE GIVEN SHOULD HAVE BEEN 4 TABLETS, 16MG. ONLY ONE TABLET WAS GIVEN. NOTIFIED PHARMACY. TALKED TO ARABELLA WHO SPOKE WITH CLINICAL SOLE TIER. STATES TO KEEP CURRENT TAPER AND NOT BACKTRACK ON DOSAGE. WILL UPDATE DR FINK.
--- NOTE | 2021-04-19 13:53 | NURSING ---
NOTIFIED DR FINK OF INR NR<2 TODAY. ELIQUIS RESTARTED PER ORDER. ALSO, NOTIFIED HIM OF YESTERDAY'S MG LAB. STARTED R' ON MAGNESIUM.
[2021-04-19] MEDS: Magnesium Chloride 64 MG Delay Rel.Tablet 128 MG PO (14:04)
[2021-04-19 15:09] VITALS: BP 128/70; PULSE 63; RESP 18; TEMP 36.8; O2SAT 97
--- NOTE | 2021-04-19 15:31 | CASEMGMT ---
Social Work VM left with pt son Paras to discuss TCU stay and discharge plan. Will await return call. CAMMIE Reveles
[2021-04-19] MEDS: APIXABAN 5 MG TABLET PO (17:00)
[2021-04-19] MEDS: Atorvastatin Calcium 80 MG Tablet PO (20:51)
[2021-04-19] MEDS: MELATONIN 3 MG TABLET PO (20:51)
[2021-04-19] MEDS: Mirtazapine 15 MG Tablet PO (20:51)
[2021-04-20] MEDS: 0.9% Saline Lock 10 ML Syringe IV (04:35)
[2021-04-20] MEDS: Menthol/Lanolin/Calamine/Znox 113 GM Tube 1 APPLIC TOPICAL ×2 (04:35→20:17)
[2021-04-20] MEDS: Pantoprazole Sodium 40 MG Tablet PO (04:45)
[2021-04-20] MEDS: Magnesium Chloride 64 MG Delay Rel.Tablet 128 MG PO (04:45)
[2021-04-20] MEDS: APIXABAN 5 MG TABLET PO ×2 (04:45→17:47)
[2021-04-20] MEDS: Glucerna Shake 120 ML LIQUID PO ×4 (04:45→20:13)
[2021-04-20] MEDS: amLODIPine 10 MG Tablet PO (04:45)
[2021-04-20 04:50] VITALS: BP 146/75; PULSE 79; RESP 16
[2021-04-20 06:41] LABS: Bedside Glucose 239 mg/dL (70-110)
[2021-04-20] MEDS: metFORMIN HCl 1,000 MG Tablet 1000 MG PO ×2 (08:57→17:46)
[2021-04-20] MEDS: Multivitamins,Therapeutic Tablet 1 TABLET PO (08:57)
[2021-04-20] MEDS: MethylPREDNISolone DosePak 4 MG BOX PO ×4 (08:57→20:13)
[2021-04-20] MEDS: Ferrous Sulfate 325 MG Tablet PO ×2 (08:57→17:45)
[2021-04-20] MEDS: Aspirin E.C. 81 MG Tablet PO (09:01)
[2021-04-20 09:03] LABS: International Normalized Ratio 2.2; Prothrombin Time (Protime)PT. 24.1 SECONDS (11.7-14.9)
[2021-04-20 16:00] VITALS: BP 146/77; PULSE 59; RESP 18; TEMP 36.6; O2SAT 98
[2021-04-20] MEDS: Mirtazapine 15 MG Tablet PO (20:15)
[2021-04-20] MEDS: Atorvastatin Calcium 80 MG Tablet PO (20:15)
[2021-04-20] MEDS: MELATONIN 3 MG TABLET PO (20:15)
[2021-04-21 05:04] VITALS: BP 142/65; PULSE 71; RESP 20; TEMP 36.6
[2021-04-21] MEDS: Glucerna Shake 120 ML LIQUID PO ×4 (05:05→22:15)
[2021-04-21] MEDS: amLODIPine 10 MG Tablet PO (05:06)
[2021-04-21] MEDS: APIXABAN 5 MG TABLET PO ×2 (05:06→17:23)
[2021-04-21] MEDS: Pantoprazole Sodium 40 MG Tablet PO (05:06)
[2021-04-21] MEDS: Magnesium Chloride 64 MG Delay Rel.Tablet 128 MG PO (05:07)
[2021-04-21] MEDS: Menthol/Lanolin/Calamine/Znox 113 GM Tube 1 APPLIC TOPICAL ×2 (05:15→22:15)
[2021-04-21 06:25] LABS: Bedside Glucose 203 mg/dL (70-110)
[2021-04-21] MEDS: Ferrous Sulfate 325 MG Tablet PO ×2 (08:30→17:23)
[2021-04-21] MEDS: Multivitamins,Therapeutic Tablet 1 TABLET PO (08:30)
[2021-04-21] MEDS: metFORMIN HCl 1,000 MG Tablet 1000 MG PO ×2 (08:30→17:23)
[2021-04-21] MEDS: Aspirin E.C. 81 MG Tablet PO (08:30)
[2021-04-21] MEDS: MethylPREDNISolone DosePak 4 MG BOX PO ×3 (08:34→22:15)
[2021-04-21 08:53] LABS: International Normalized Ratio 1.8; Prothrombin Time (Protime)PT. 20.5 SECONDS (11.7-14.9)
--- NOTE | 2021-04-21 13:16 | NURSING ---
Received order from Dr. Sauer to remove PICC and d/c any orders for INR checks or parameters for Eliquis. Order repeated back.
[2021-04-21 16:30] VITALS: BP 134/65; PULSE 62; RESP 16; TEMP 36.7; O2SAT 95
[2021-04-21 16:34] VITALS: PULSE 62; RESP 16; O2SAT 95
--- NOTE | 2021-04-21 18:36 | NURSING ---
Colostomy changed due to leak. Patient tolerated procedure well.
--- NOTE | 2021-04-21 20:46 | NURSING ---
Patient's left and right hearing aids placed into a denture cup and labeled with his name.
[2021-04-21] MEDS: Atorvastatin Calcium 80 MG Tablet PO (22:14)
[2021-04-21] MEDS: Mirtazapine 15 MG Tablet PO (22:14)
[2021-04-21] MEDS: MELATONIN 3 MG TABLET PO (22:18)
--- NOTE | 2021-04-22 01:15 | NURSING ---
Double lumen PICC line dc'ed per dr order. Occlusive dressing and statlock removed using etoh. Pt took a deep breath. Slowly removed catheter without any resistance. Length 38 cm with tip intact. Firm pressure applied to insertion site for approximately one minute w/ sterile 4x4. Insertion site pink and without warmth or swelling. No bleeding or active drainage noted to site. Secured w/ padded opsite.
[2021-04-22 04:45] VITALS: BP 152/77; PULSE 61; RESP 16; TEMP 36.3; O2SAT 97
[2021-04-22] MEDS: Pantoprazole Sodium 40 MG Tablet PO (04:50)
[2021-04-22] MEDS: amLODIPine 10 MG Tablet PO (04:51)
[2021-04-22] MEDS: Glucerna Shake 120 ML LIQUID PO ×4 (04:51→22:09)
[2021-04-22] MEDS: APIXABAN 5 MG TABLET PO ×2 (04:51→17:13)
[2021-04-22] MEDS: Menthol/Lanolin/Calamine/Znox 113 GM Tube 1 APPLIC TOPICAL ×2 (04:52→22:06)
[2021-04-22] MEDS: Magnesium Chloride 64 MG Delay Rel.Tablet 128 MG PO (04:54)
[2021-04-22 06:21] LABS: Bedside Glucose 199 mg/dL (70-110)
[2021-04-22] MEDS: MethylPREDNISolone DosePak 4 MG BOX PO ×2 (08:12→22:04)
[2021-04-22] MEDS: Multivitamins,Therapeutic Tablet 1 TABLET PO (08:13)
[2021-04-22] MEDS: Ferrous Sulfate 325 MG Tablet PO ×2 (08:13→17:13)
[2021-04-22] MEDS: Aspirin E.C. 81 MG Tablet PO (08:13)
[2021-04-22] MEDS: metFORMIN HCl 1,000 MG Tablet 1000 MG PO ×2 (08:13→17:13)
[2021-04-22 14:49] VITALS: BP 93/63; PULSE 60; RESP 18; TEMP 36.2; O2SAT 92
[2021-04-22] MEDS: Atorvastatin Calcium 80 MG Tablet PO (22:05)
[2021-04-22] MEDS: Mirtazapine 15 MG Tablet PO (22:05)
[2021-04-22] MEDS: MELATONIN 3 MG TABLET PO (22:06)
[2021-04-23 06:03] VITALS: BP 142/70; PULSE 66; RESP 16; TEMP 36.3; O2SAT 98
[2021-04-23] MEDS: Glucerna Shake 120 ML LIQUID PO ×4 (06:05→20:56)
[2021-04-23] MEDS: Menthol/Lanolin/Calamine/Znox 113 GM Tube 1 APPLIC TOPICAL ×2 (06:07→20:55)
[2021-04-23] MEDS: amLODIPine 10 MG Tablet PO (06:08)
[2021-04-23] MEDS: APIXABAN 5 MG TABLET PO ×2 (06:08→17:31)
[2021-04-23] MEDS: Pantoprazole Sodium 40 MG Tablet PO (06:08)
[2021-04-23] MEDS: Magnesium Chloride 64 MG Delay Rel.Tablet 128 MG PO ×2 (06:10→11:09)
[2021-04-23 07:01] LABS: Bedside Glucose 208 mg/dL (70-110)
[2021-04-23 08:19] LABS: Magnesium 1.4 mg/dL (1.6-2.6)
[2021-04-23] MEDS: MethylPREDNISolone DosePak 4 MG BOX PO (08:24)
[2021-04-23] MEDS: Multivitamins,Therapeutic Tablet 1 TABLET PO (08:24)
[2021-04-23] MEDS: Ferrous Sulfate 325 MG Tablet PO ×2 (08:25→17:31)
[2021-04-23] MEDS: metFORMIN HCl 1,000 MG Tablet 1000 MG PO ×2 (08:25→17:31)
[2021-04-23] MEDS: Aspirin E.C. 81 MG Tablet PO (08:25)
--- NOTE | 2021-04-23 11:16 | WOUNDNOTE ---
In to assess the wound VAC dressing. dressing is intact with good seal noted at 150mmHg low continuous suction. ostomy appliance leaking at the lateral edge of the flange. removed appliance. moderate amount of soft brown stool noted. cleansed skin with warm water and pat dry. peristomal skin is intact. applied a new flat 2 piece [place] appliance with a small amount of stoma paste. pt tolerated well.
[2021-04-23 14:10] VITALS: BP 153/69; PULSE 84; RESP 18; TEMP 36.1; O2SAT 96
--- NOTE | 2021-04-23 15:43 | CASEMGMT ---
Social Work Brief interview for mental status (BIMS) and resident mood interview (PHQ-9) completed on this day. BIMS score 12/15. PHQ-9 score/27. Angela FERNANDO, ALISHAS
[2021-04-23] MEDS: Atorvastatin Calcium 80 MG Tablet PO (20:57)
[2021-04-23] MEDS: Mirtazapine 15 MG Tablet PO (20:57)
[2021-04-23] MEDS: MELATONIN 3 MG TABLET PO (20:58)
[2021-04-24] MEDS: Menthol/Lanolin/Calamine/Znox 113 GM Tube 1 APPLIC TOPICAL ×2 (04:32→20:54)
[2021-04-24] MEDS: Glucerna Shake 120 ML LIQUID PO ×2 (04:33→11:39)
[2021-04-24] MEDS: Magnesium Chloride 64 MG Delay Rel.Tablet 256 MG PO (04:33)
[2021-04-24] MEDS: APIXABAN 5 MG TABLET PO ×2 (04:33→17:04)
[2021-04-24] MEDS: amLODIPine 10 MG Tablet PO (04:34)
[2021-04-24] MEDS: Pantoprazole Sodium 40 MG Tablet PO (04:34)
[2021-04-24 04:40] VITALS: BP 141/68; PULSE 62; RESP 14
[2021-04-24 06:00] LABS: Absolute Lymphocyte Count 1.94 X10^3/uL (0.83-4.51); Absolute Neutrophil Count 9.8 X10^3/uL (2.0-7.7); Basophil# 0.05 X10^3/uL; Basophil% 0.4 % (0-1); Eosinophil# 0.32 X10^3/uL; Eosinophils% 2.4 % (0-5); Hemoglobin 9.3 g/dL (13.0-16.5); Lymphocyte # 1.94 X10^3/ul (0.83-4.51); Lymphocyte % 14.3 % (19-41); Mean Corpuscular Hgb 26.3 pg (27.0-32.0); Mean Corpuscular Volume 87.8 fL (80-94); Mean Platelet Vol. 10.1 fl (6.2-12.0); Monocyte# 1.08 X10^3/uL; NRBC Flagged by Analyzer 0 % (0-5); Neutrophil # 9.84 X10^3/uL (2.7-7.7); Neutrophil % 72.6 % (47-70); Platelet Count 441 K/mm3 (150-450); RBC Distribution Width CV 15.2 % (11.6-14.6); RBC Distribution Width SD 47.6 fl (35.1-43.9); Red Blood Count 3.53 M/mm3 (4.6-6.2); White Blood Count 13.5 K/mm3 (4.4-11.0)
[2021-04-24 06:27] LABS: Anion Gap 8 (5-15); BUN 23 mg/dL (7-18); BUN/Creat Ratio 34.9 RATIO (10-20); Calcium,Total 9.1 mg/dL (8.5-10.1); Chloride 104 mmol/L (98-107); Creatinine, Serum 0.66 mg/dL (0.70-1.30); EST Glomerular Filtration Rate 124 mL/min (>60); Est Glom Filt Rate - Afr Amer 150 mL/min (>60); Estimated Creatinine Clearance 50.98 ml/min; Glucose 137 mg/dL (74-106); Potassium 3.9 mmol/L (3.5-5.1); Sodium Level 137 mmol/L (136-145)
[2021-04-24 06:31] LABS: Bedside Glucose 149 mg/dL (70-110)
[2021-04-24] MEDS: Multivitamins,Therapeutic Tablet 1 TABLET PO (08:34)
[2021-04-24] MEDS: Ferrous Sulfate 325 MG Tablet PO ×2 (08:34→17:03)
[2021-04-24] MEDS: Aspirin E.C. 81 MG Tablet PO (08:34)
[2021-04-24] MEDS: metFORMIN HCl 1,000 MG Tablet 1000 MG PO ×2 (08:34→17:03)
--- NOTE | 2021-04-24 09:37 | WOUNDNOTE ---
wound photo: abdomen
--- NOTE | 2021-04-24 10:20 | CASEMGMT ---
Social Work Plan of care meeting held. Patient present. Patient family present via speaker phone. Patient to continue with further care and treatment on the Transitional Care Unit. Patient plans to discharge to home with family at time of discharge. No discharge date set. Will continue to follow. Angela FERNANDO, ALISHAS
[2021-04-24] MEDS: Tuberculin,Purif.prot.deriv. 50 TU/ML Vial 0.1 ML ID (11:39)
[2021-04-24 16:49] VITALS: BP 122/67; PULSE 60; RESP 17; TEMP 35.7; O2SAT 99
[2021-04-24] MEDS: Atorvastatin Calcium 80 MG Tablet PO (20:54)
[2021-04-24] MEDS: MELATONIN 3 MG TABLET PO (20:54)
[2021-04-24] MEDS: Mirtazapine 15 MG Tablet PO (20:55)
[2021-04-24 21:01] VITALS: PULSE 64; RESP 16; O2SAT 97
[2021-04-25] MEDS: Acetaminophen 325 MG Tablet 650 MG PO ×2 (03:43→08:18)
[2021-04-25] MEDS: Pantoprazole Sodium 40 MG Tablet PO (03:43)
[2021-04-25] MEDS: APIXABAN 5 MG TABLET PO ×2 (03:43→18:10)
[2021-04-25] MEDS: Menthol/Lanolin/Calamine/Znox 113 GM Tube 1 APPLIC TOPICAL ×2 (03:44→20:56)
[2021-04-25] MEDS: Magnesium Chloride 64 MG Delay Rel.Tablet 256 MG PO (03:44)
[2021-04-25] MEDS: amLODIPine 10 MG Tablet PO (03:44)
[2021-04-25 03:49] VITALS: BP 125/66; PULSE 76
[2021-04-25 07:05] LABS: Bedside Glucose 174 mg/dL (70-110)
[2021-04-25] MEDS: Ferrous Sulfate 325 MG Tablet PO ×2 (08:18→18:10)
[2021-04-25] MEDS: Aspirin E.C. 81 MG Tablet PO (08:18)
[2021-04-25] MEDS: Multivitamins,Therapeutic Tablet 1 TABLET PO (08:18)
[2021-04-25] MEDS: metFORMIN HCl 1,000 MG Tablet 1000 MG PO ×2 (08:18→18:10)
[2021-04-25 15:30] VITALS: BP 142/54; PULSE 66; RESP 16; TEMP 36.9; O2SAT 96
[2021-04-25 18:25] LABS: Erythrocyte Sedimentation Rate 69 mm/hr (0-20)
[2021-04-25 18:55] LABS: Anion Gap 9 (5-15); BUN 20 mg/dL (7-18); Calcium,Total 9.2 mg/dL (8.5-10.1); Chloride 102 mmol/L (98-107); Creatinine, Serum 0.62 mg/dL (0.70-1.30); EST Glomerular Filtration Rate 132 mL/min (>60); Est Glom Filt Rate - Afr Amer 160 mL/min (>60); Estimated Creatinine Clearance 50.98 ml/min; Glucose 183 mg/dL (74-106); Potassium 4.5 mmol/L (3.5-5.1); Sodium Level 132 mmol/L (136-145); Uric Acid 3.5 mg/dL (3.5-7.2)
[2021-04-25] MEDS: Atorvastatin Calcium 80 MG Tablet PO (20:57)
[2021-04-25] MEDS: Colchicine 0.6 MG TABLET PO (21:01)
[2021-04-25] MEDS: MethylPREDNISolone DosePak 4 MG BOX PO (21:02)
[2021-04-25] MEDS: MELATONIN 3 MG TABLET PO (21:03)
[2021-04-25] MEDS: NYSTATIN 500,000 UNIT/5 ML UDC 500000 UNIT PO (21:04)
[2021-04-25] MEDS: Mirtazapine 15 MG Tablet PO (21:04)
[2021-04-25 21:15] VITALS: RESP 18; O2SAT 93
[2021-04-26 05:32] VITALS: BP 138/66; PULSE 68
[2021-04-26] MEDS: Colchicine 0.6 MG TABLET PO ×2 (05:33→17:37)
[2021-04-26] MEDS: NYSTATIN 500,000 UNIT/5 ML UDC 500000 UNIT PO ×4 (05:33→21:37)
[2021-04-26] MEDS: Pantoprazole Sodium 40 MG Tablet PO (05:34)
[2021-04-26] MEDS: Magnesium Chloride 64 MG Delay Rel.Tablet 256 MG PO (05:34)
[2021-04-26] MEDS: amLODIPine 10 MG Tablet PO (05:34)
[2021-04-26] MEDS: APIXABAN 5 MG TABLET PO ×2 (05:34→17:37)
[2021-04-26] MEDS: Menthol/Lanolin/Calamine/Znox 113 GM Tube 1 APPLIC TOPICAL ×2 (05:37→21:36)
[2021-04-26 06:09] LABS: Magnesium 1.4 mg/dL (1.6-2.6)
[2021-04-26 06:21] LABS: Bedside Glucose 238 mg/dL (70-110)
[2021-04-26] MEDS: MethylPREDNISolone DosePak 4 MG BOX PO ×4 (08:35→21:37)
[2021-04-26] MEDS: Aspirin E.C. 81 MG Tablet PO (08:35)
[2021-04-26] MEDS: metFORMIN HCl 1,000 MG Tablet 1000 MG PO ×2 (08:35→17:35)
[2021-04-26] MEDS: Ferrous Sulfate 325 MG Tablet PO ×2 (08:35→17:35)
[2021-04-26] MEDS: Multivitamins,Therapeutic Tablet 1 TABLET PO (08:35)
[2021-04-26] MEDS: Nystatin Powder 15gm Bottle 1 APPLIC TOPICAL ×2 (08:36→17:49)
--- NOTE | 2021-04-26 11:08 | WOUNDNOTE ---
Colostomy appliance intact. had just been changed on 04/23/21.
[2021-04-26 11:57] VITALS: BP 137/66; PULSE 75; RESP 16; TEMP 36.1; O2SAT 96
[2021-04-26] MEDS: Mirtazapine 15 MG Tablet PO (21:41)
[2021-04-26] MEDS: Atorvastatin Calcium 80 MG Tablet PO (21:41)
[2021-04-26] MEDS: MELATONIN 3 MG TABLET PO (21:41)
[2021-04-27] MEDS: Nystatin Powder 15gm Bottle 1 APPLIC TOPICAL ×2 (05:46→17:00)
[2021-04-27] MEDS: APIXABAN 5 MG TABLET PO ×2 (05:47→16:59)
[2021-04-27] MEDS: Pantoprazole Sodium 40 MG Tablet PO (05:47)
[2021-04-27] MEDS: NYSTATIN 500,000 UNIT/5 ML UDC 500000 UNIT PO ×4 (05:47→20:55)
[2021-04-27] MEDS: amLODIPine 10 MG Tablet PO (05:47)
[2021-04-27] MEDS: Colchicine 0.6 MG TABLET PO ×2 (05:47→16:59)
[2021-04-27] MEDS: Magnesium Chloride 64 MG Delay Rel.Tablet 256 MG PO (05:48)
[2021-04-27] MEDS: Menthol/Lanolin/Calamine/Znox 113 GM Tube 1 APPLIC TOPICAL ×2 (05:51→20:51)
[2021-04-27 05:52] VITALS: BP 141/69; PULSE 79
[2021-04-27 06:36] LABS: Bedside Glucose 263 mg/dL (70-110)
[2021-04-27] MEDS: Aspirin E.C. 81 MG Tablet PO (08:30)
[2021-04-27] MEDS: metFORMIN HCl 1,000 MG Tablet 1000 MG PO ×2 (08:30→17:00)
[2021-04-27] MEDS: MethylPREDNISolone DosePak 4 MG BOX PO ×4 (08:30→20:55)
[2021-04-27] MEDS: Multivitamins,Therapeutic Tablet 1 TABLET PO (08:30)
[2021-04-27] MEDS: Ferrous Sulfate 325 MG Tablet PO ×2 (08:30→17:00)
[2021-04-27 16:00] VITALS: BP 149/67; PULSE 74; RESP 16; TEMP 36.8; O2SAT 97
[2021-04-27 16:11] LABS: Bedside Glucose 193 mg/dL (70-110)
[2021-04-27] MEDS: Atorvastatin Calcium 80 MG Tablet PO (20:54)
[2021-04-27] MEDS: Mirtazapine 15 MG Tablet PO (20:54)
[2021-04-27] MEDS: MELATONIN 3 MG TABLET PO (20:55)
[2021-04-28] MEDS: Menthol/Lanolin/Calamine/Znox 113 GM Tube 1 APPLIC TOPICAL ×2 (05:02→21:05)
[2021-04-28] MEDS: Magnesium Chloride 64 MG Delay Rel.Tablet 256 MG PO (05:03)
[2021-04-28] MEDS: Pantoprazole Sodium 40 MG Tablet PO (05:04)
[2021-04-28] MEDS: amLODIPine 10 MG Tablet PO (05:04)
[2021-04-28] MEDS: NYSTATIN 500,000 UNIT/5 ML UDC 500000 UNIT PO ×4 (05:08→21:05)
[2021-04-28] MEDS: Nystatin Powder 15gm Bottle 1 APPLIC TOPICAL ×2 (05:08→17:25)
[2021-04-28] MEDS: Colchicine 0.6 MG TABLET PO ×2 (05:08→17:24)
[2021-04-28] MEDS: APIXABAN 5 MG TABLET PO ×2 (05:08→17:24)
[2021-04-28 05:13] VITALS: BP 139/61; PULSE 61; RESP 14
[2021-04-28 06:36] LABS: Bedside Glucose 242 mg/dL (70-110)
[2021-04-28] MEDS: Multivitamins,Therapeutic Tablet 1 TABLET PO (08:06)
[2021-04-28] MEDS: Ferrous Sulfate 325 MG Tablet PO ×2 (08:06→17:24)
[2021-04-28] MEDS: metFORMIN HCl 1,000 MG Tablet 1000 MG PO ×2 (08:06→17:24)
[2021-04-28] MEDS: Aspirin E.C. 81 MG Tablet PO (08:06)
[2021-04-28] MEDS: MethylPREDNISolone DosePak 4 MG BOX PO ×3 (08:06→21:06)
[2021-04-28 14:04] VITALS: BP 116/49; PULSE 56; RESP 16; TEMP 35.9; O2SAT 97
[2021-04-28 19:59] VITALS: PULSE 57; RESP 16; O2SAT 100
[2021-04-28] MEDS: Atorvastatin Calcium 80 MG Tablet PO (21:05)
[2021-04-28] MEDS: MELATONIN 3 MG TABLET PO (21:06)
[2021-04-28] MEDS: Mirtazapine 15 MG Tablet PO (21:06)
[2021-04-29 04:59] VITALS: BP 130/72; PULSE 63; RESP 14
[2021-04-29] MEDS: Nystatin Powder 15gm Bottle 1 APPLIC TOPICAL ×2 (05:01→16:21)
[2021-04-29] MEDS: Menthol/Lanolin/Calamine/Znox 113 GM Tube 1 APPLIC TOPICAL ×2 (05:01→20:20)
[2021-04-29] MEDS: Pantoprazole Sodium 40 MG Tablet PO (05:02)
[2021-04-29] MEDS: Magnesium Chloride 64 MG Delay Rel.Tablet 256 MG PO (05:02)
[2021-04-29] MEDS: amLODIPine 10 MG Tablet PO (05:02)
[2021-04-29] MEDS: APIXABAN 5 MG TABLET PO ×2 (05:02→16:20)
[2021-04-29] MEDS: NYSTATIN 500,000 UNIT/5 ML UDC 500000 UNIT PO ×4 (05:02→20:21)
[2021-04-29] MEDS: Colchicine 0.6 MG TABLET PO ×2 (05:02→16:19)
[2021-04-29 07:05] LABS: Bedside Glucose 152 mg/dL (70-110)
--- NOTE | 2021-04-29 08:12 | MDS.RN ---
Information for the mds was obtained from review of the clinical record, interview of resident, staff, and direct observation of resident's care.
[2021-04-29] MEDS: Multivitamins,Therapeutic Tablet 1 TABLET PO (08:14)
[2021-04-29] MEDS: Aspirin E.C. 81 MG Tablet PO (08:14)
[2021-04-29] MEDS: Ferrous Sulfate 325 MG Tablet PO ×2 (08:14→16:20)
[2021-04-29] MEDS: metFORMIN HCl 1,000 MG Tablet 1000 MG PO ×2 (08:14→16:20)
[2021-04-29] MEDS: MethylPREDNISolone DosePak 4 MG BOX PO ×2 (08:14→20:20)
--- NOTE | 2021-04-29 10:42 | WOUNDNOTE ---
Wound VAC dressing was changed yesterday by nursing. good seal noted. plan to change the dressing again on 05/01/21 to get back on a schedule.
[2021-04-29 13:41] VITALS: PULSE 79; RESP 16; O2SAT 98
[2021-04-29 15:48] VITALS: BP 103/70; PULSE 73; RESP 16; TEMP 36.6; O2SAT 98
[2021-04-29] MEDS: Mirtazapine 15 MG Tablet PO (20:21)
[2021-04-29] MEDS: Atorvastatin Calcium 80 MG Tablet PO (20:21)
[2021-04-29] MEDS: MELATONIN 3 MG TABLET PO (20:21)
--- NOTE | 2021-04-30 01:00 | NURSING ---
Went to help patient with urinal and noticed stool leaking from under ostomy appliance, leaked under dressing to wound vac right up to black foam. Changed wound VAC dressing, cleansed area w/ soap and water, patted dry, applied skin prep and drape around wound, filled wound with black foam and covered with drape. Attached to suction at 150. Ostomy appliance changed. Cleansed around stoma, applied skin prep then wafer with stoma paste, attached bag. Peristomal and periwound skin intact w/o redness or breakdown.
[2021-04-30] MEDS: NYSTATIN 500,000 UNIT/5 ML UDC 500000 UNIT PO ×3 (04:44→17:08)
[2021-04-30] MEDS: Magnesium Chloride 64 MG Delay Rel.Tablet 256 MG PO (04:44)
[2021-04-30] MEDS: Colchicine 0.6 MG TABLET PO ×2 (04:45→17:09)
[2021-04-30] MEDS: APIXABAN 5 MG TABLET PO ×2 (04:45→17:10)
[2021-04-30] MEDS: amLODIPine 10 MG Tablet PO (04:45)
[2021-04-30] MEDS: Pantoprazole Sodium 40 MG Tablet PO (04:45)
[2021-04-30] MEDS: Menthol/Lanolin/Calamine/Znox 113 GM Tube 1 APPLIC TOPICAL (04:46)
[2021-04-30] MEDS: Nystatin Powder 15gm Bottle 1 APPLIC TOPICAL ×2 (04:46→17:10)
[2021-04-30 04:47] VITALS: BP 140/60; PULSE 59
[2021-04-30 06:36] LABS: Bedside Glucose 165 mg/dL (70-110)
[2021-04-30] MEDS: MethylPREDNISolone DosePak 4 MG BOX PO (07:49)
[2021-04-30] MEDS: Aspirin E.C. 81 MG Tablet PO (07:50)
[2021-04-30] MEDS: Ferrous Sulfate 325 MG Tablet PO ×2 (07:50→17:09)
[2021-04-30] MEDS: Multivitamins,Therapeutic Tablet 1 TABLET PO (07:50)
[2021-04-30] MEDS: metFORMIN HCl 1,000 MG Tablet 1000 MG PO ×2 (07:50→17:09)
--- NOTE | 2021-04-30 10:58 | WOUNDNOTE ---
Nursing had changed the wound VAC dressing and ostomy appliance earlier this am d/t ostomy leakage. both are intact at this time. will monitor.
--- NOTE | 2021-04-30 14:53 | CASEMGMT ---
Social [facility] from [facility] to meet with patient and patient family today to discuss options. Telephone call to patient son, Paras. This social welfare research worker communicating the teams concern that patient will be able to return to home. Paras reports to have been thinking about this and to have been concerned that patient was not going to be able to make it home. This social welfare research worker broached topic of intermediate placement. Paras voices understanding and is open to this social welfare research worker meeting with family later today. This social welfare research worker to follow up with patient and Paras later this afternoon. Will continue to follow. Angela FERNANDO, LULA
[2021-04-30 15:27] VITALS: BP 135/66; PULSE 62; RESP 16; TEMP 36.9; O2SAT 95
--- NOTE | 2021-04-30 16:28 | CASEMGMT ---
Social Work Met with patient and patient son in room. This social science instructor broached topic of half-way placement. Patient and patient son are open to half-way placement with first choice being [facility] and second choice being [facility]. No discharge date has been set at this time. Patient to meet with Palliative Care today. Will continue to follow. Angela FERNANDO, LULA
[2021-04-30 20:08] VITALS: PULSE 69; RESP 16; O2SAT 99
[2021-05-01] MEDS: Menthol/Lanolin/Calamine/Znox 113 GM Tube 1 APPLIC TOPICAL ×3 (00:35→21:10)
[2021-05-01] MEDS: Atorvastatin Calcium 80 MG Tablet PO ×2 (00:36→21:09)
[2021-05-01] MEDS: MELATONIN 3 MG TABLET PO ×2 (00:36→21:09)
[2021-05-01] MEDS: NYSTATIN 500,000 UNIT/5 ML UDC 500000 UNIT PO ×5 (00:37→21:10)
[2021-05-01] MEDS: Mirtazapine 15 MG Tablet PO ×2 (00:37→21:10)
[2021-05-01] MEDS: Pantoprazole Sodium 40 MG Tablet PO (05:21)
[2021-05-01] MEDS: Magnesium Chloride 64 MG Delay Rel.Tablet 256 MG PO (05:21)
[2021-05-01] MEDS: Nystatin Powder 15gm Bottle 1 APPLIC TOPICAL ×2 (05:22→17:23)
[2021-05-01] MEDS: Colchicine 0.6 MG TABLET PO ×2 (05:22→17:20)
[2021-05-01] MEDS: amLODIPine 10 MG Tablet PO (05:22)
[2021-05-01] MEDS: APIXABAN 5 MG TABLET PO ×2 (05:22→17:20)
[2021-05-01 05:28] VITALS: BP 152/65; PULSE 57
[2021-05-01 06:31] LABS: Bedside Glucose 152 mg/dL (70-110)
[2021-05-01 07:22] LABS: Absolute Lymphocyte Count 1.96 X10^3/uL (0.83-4.51); Absolute Neutrophil Count 6.7 X10^3/uL (2.0-7.7); Basophil# 0.05 X10^3/uL; Basophil% 0.5 % (0-1); Eosinophil# 0.24 X10^3/uL; Eosinophils% 2.4 % (0-5); Hematocrit 34.7 % (40-54); Hemoglobin 10.2 g/dL (13.0-16.5); Lymphocyte # 1.96 X10^3/ul (0.83-4.51); Lymphocyte % 19.4 % (19-41); Mean Corp Hgb Conc 29.4 g/dL (32-36); Mean Corpuscular Hgb 26.4 pg (27.0-32.0); Mean Corpuscular Volume 89.7 fL (80-94); Mean Platelet Vol. 10.9 fl (6.2-12.0); Monocyte# 0.99 X10^3/uL; Monocyte% 9.8 % (0-10); NRBC Flagged by Analyzer 0 % (0-5); Neutrophil # 6.68 X10^3/uL (2.7-7.7); Platelet Count 326 K/mm3 (150-450); RBC Distribution Width CV 16.2 % (11.6-14.6); RBC Distribution Width SD 51.5 fl (35.1-43.9); Red Blood Count 3.87 M/mm3 (4.6-6.2); White Blood Count 10.1 K/mm3 (4.4-11.0)
[2021-05-01] MEDS: metFORMIN HCl 1,000 MG Tablet 1000 MG PO ×2 (07:55→17:19)
[2021-05-01] MEDS: Aspirin E.C. 81 MG Tablet PO (07:55)
[2021-05-01] MEDS: Multivitamins,Therapeutic Tablet 1 TABLET PO (07:56)
[2021-05-01] MEDS: Ferrous Sulfate 325 MG Tablet PO ×2 (07:56→17:19)
[2021-05-01 08:20] LABS: Anion Gap 7 (5-15); BUN 31 mg/dL (7-18); BUN/Creat Ratio 44.2 RATIO (10-20); Calcium,Total 8.7 mg/dL (8.5-10.1); Chloride 105 mmol/L (98-107); EST Glomerular Filtration Rate 116 mL/min (>60); Est Glom Filt Rate - Afr Amer 140 mL/min (>60); Estimated Creatinine Clearance 50.98 ml/min; Glucose 156 mg/dL (74-106); Potassium 3.7 mmol/L (3.5-5.1); Sodium Level 137 mmol/L (136-145)
--- NOTE | 2021-05-01 10:02 | CASEMGMT ---
Social Work Telephone call from [facility]. Patient accepted for [facility] and has signed papers. Order entered for Palliative Care. Will continue to follow. Angela FERNANDO, LULA
--- NOTE | 2021-05-01 11:27 | WOUNDNOTE ---
wound/stoma photo: abdomen
--- NOTE | 2021-05-01 11:31 | WOUNDNOTE ---
ostomy appliance leaking at the medial edge. removed appliance. stoma is beefy red and moist. sits above the skin level. peristomal skin is intact. cleansed skin with warm water. pat dry. placed a new 2 piece flat [place] appliance with an Adapt ring. pt tolerated well. see wound/stoma photo.
[2021-05-01 16:00] VITALS: BP 136/76; PULSE 63; RESP 18; TEMP 36.6; O2SAT 98
[2021-05-02 05:10] VITALS: BP 144/66; PULSE 48
[2021-05-02] MEDS: amLODIPine 10 MG Tablet PO (05:10)
[2021-05-02] MEDS: NYSTATIN 500,000 UNIT/5 ML UDC 500000 UNIT PO ×4 (05:10→21:13)
[2021-05-02] MEDS: Pantoprazole Sodium 40 MG Tablet PO (05:10)
[2021-05-02] MEDS: Nystatin Powder 15gm Bottle 1 APPLIC TOPICAL ×2 (05:11→16:10)
[2021-05-02] MEDS: Menthol/Lanolin/Calamine/Znox 113 GM Tube 1 APPLIC TOPICAL ×2 (05:11→21:13)
[2021-05-02] MEDS: APIXABAN 5 MG TABLET PO ×2 (05:11→16:11)
[2021-05-02] MEDS: Colchicine 0.6 MG TABLET PO ×2 (05:11→16:10)
[2021-05-02] MEDS: Magnesium Chloride 64 MG Delay Rel.Tablet 256 MG PO (05:17)
[2021-05-02 06:35] LABS: Bedside Glucose 114 mg/dL (70-110)
[2021-05-02] MEDS: Ferrous Sulfate 325 MG Tablet PO ×2 (07:59→16:10)
[2021-05-02] MEDS: Aspirin E.C. 81 MG Tablet PO (07:59)
[2021-05-02] MEDS: Multivitamins,Therapeutic Tablet 1 TABLET PO (07:59)
[2021-05-02] MEDS: metFORMIN HCl 1,000 MG Tablet 1000 MG PO ×2 (07:59→16:10)
[2021-05-02 14:32] VITALS: BP 134/66; PULSE 62; RESP 18; TEMP 36.4; O2SAT 98
[2021-05-02 14:48] VITALS: BP 134/66; PULSE 62; RESP 18; TEMP 36.4; O2SAT 98
[2021-05-02 14:49] VITALS: PULSE 62; RESP 18; O2SAT 98
--- NOTE | 2021-05-02 20:21 | NURSING ---
FRUIT FARMWORKER reports Colostomy appliance leaking, large brown loose stool observed, new colostomy appliance applied. Peristomal skin with redness observed, skin intact. New colostomy appliance applied. Stoma moist/beefy red. Pt. tolerated well. No distress observed or reported. Call light in reach.
[2021-05-02] MEDS: MELATONIN 3 MG TABLET PO (21:14)
[2021-05-02] MEDS: Atorvastatin Calcium 80 MG Tablet PO (21:14)
[2021-05-02] MEDS: Mirtazapine 15 MG Tablet PO (21:14)
[2021-05-03] MEDS: Menthol/Lanolin/Calamine/Znox 113 GM Tube 1 APPLIC TOPICAL ×2 (05:08→20:27)
[2021-05-03] MEDS: NYSTATIN 500,000 UNIT/5 ML UDC 500000 UNIT PO ×4 (05:09→21:56)
[2021-05-03] MEDS: Pantoprazole Sodium 40 MG Tablet PO (05:09)
[2021-05-03] MEDS: APIXABAN 5 MG TABLET PO ×2 (05:09→16:48)
[2021-05-03] MEDS: Nystatin Powder 15gm Bottle 1 APPLIC TOPICAL ×2 (05:09→16:50)
[2021-05-03] MEDS: amLODIPine 10 MG Tablet PO (05:09)
[2021-05-03] MEDS: Magnesium Chloride 64 MG Delay Rel.Tablet 256 MG PO (05:14)
[2021-05-03 05:20] VITALS: BP 127/61; PULSE 57; RESP 16; O2SAT 98
[2021-05-03 06:40] LABS: Bedside Glucose 143 mg/dL (70-110)
[2021-05-03] MEDS: Multivitamins,Therapeutic Tablet 1 TABLET PO (07:51)
[2021-05-03] MEDS: Aspirin E.C. 81 MG Tablet PO (07:51)
[2021-05-03] MEDS: Ferrous Sulfate 325 MG Tablet PO ×2 (07:51→16:48)
[2021-05-03] MEDS: metFORMIN HCl 1,000 MG Tablet 1000 MG PO ×2 (07:51→16:48)
--- NOTE | 2021-05-03 11:38 | WOUNDNOTE ---
colostomy appliance changed. peristomal skin remains intact. cleansed with warm water. pat dry. applied a new 2 piece flat [place] appliance with an Adapt ring. pt tolerated well.
[2021-05-03 16:06] VITALS: BP 125/82; PULSE 63; RESP 18; TEMP 36.8; O2SAT 98
[2021-05-03] MEDS: MELATONIN 3 MG TABLET PO (20:27)
[2021-05-03] MEDS: Atorvastatin Calcium 80 MG Tablet PO (20:28)
[2021-05-03] MEDS: Mirtazapine 15 MG Tablet PO (20:28)
[2021-05-04] MEDS: Menthol/Lanolin/Calamine/Znox 113 GM Tube 1 APPLIC TOPICAL ×2 (04:31→21:06)
[2021-05-04] MEDS: Nystatin Powder 15gm Bottle 1 APPLIC TOPICAL ×2 (04:31→16:02)
[2021-05-04] MEDS: Pantoprazole Sodium 40 MG Tablet PO (04:35)
[2021-05-04] MEDS: NYSTATIN 500,000 UNIT/5 ML UDC 500000 UNIT PO ×4 (04:35→21:07)
[2021-05-04] MEDS: amLODIPine 10 MG Tablet PO (04:36)
[2021-05-04] MEDS: APIXABAN 5 MG TABLET PO ×2 (04:36→17:06)
[2021-05-04 06:26] LABS: Bedside Glucose 132 mg/dL (70-110)
[2021-05-04] MEDS: metFORMIN HCl 1,000 MG Tablet 1000 MG PO ×2 (08:49→16:01)
[2021-05-04] MEDS: Multivitamins,Therapeutic Tablet 1 TABLET PO (08:49)
[2021-05-04] MEDS: Ferrous Sulfate 325 MG Tablet PO ×2 (08:49→16:01)
[2021-05-04] MEDS: Aspirin E.C. 81 MG Tablet PO (08:49)
[2021-05-04] MEDS: Magnesium Chloride 64 MG Delay Rel.Tablet 256 MG PO (11:14)
[2021-05-04 11:31] LABS: Bedside Glucose 127 mg/dL (70-110)
[2021-05-04 15:27] VITALS: BP 147/62; PULSE 80; RESP 18; TEMP 36.7; O2SAT 94
[2021-05-04 16:45] LABS: Bedside Glucose 175 mg/dL (70-110)
[2021-05-04 19:57] VITALS: PULSE 58; RESP 16; O2SAT 98
[2021-05-04] MEDS: Atorvastatin Calcium 80 MG Tablet PO (21:06)
[2021-05-04] MEDS: MELATONIN 3 MG TABLET PO (21:06)
[2021-05-04] MEDS: Mirtazapine 15 MG Tablet PO (21:07)
[2021-05-05 06:02] VITALS: BP 125/77; PULSE 59
[2021-05-05] MEDS: Magnesium Chloride 64 MG Delay Rel.Tablet 256 MG PO (06:04)
[2021-05-05] MEDS: APIXABAN 5 MG TABLET PO ×2 (06:04→16:44)
[2021-05-05] MEDS: Menthol/Lanolin/Calamine/Znox 113 GM Tube 1 APPLIC TOPICAL ×2 (06:05→22:05)
[2021-05-05] MEDS: NYSTATIN 500,000 UNIT/5 ML UDC 500000 UNIT PO ×4 (06:05→22:07)
[2021-05-05] MEDS: Pantoprazole Sodium 40 MG Tablet PO (06:05)
[2021-05-05] MEDS: amLODIPine 10 MG Tablet PO (06:05)
[2021-05-05] MEDS: Nystatin Powder 15gm Bottle 1 APPLIC TOPICAL ×2 (06:06→16:44)
[2021-05-05 06:25] LABS: Bedside Glucose 119 mg/dL (70-110)
[2021-05-05] MEDS: metFORMIN HCl 1,000 MG Tablet 1000 MG PO ×2 (07:48→16:45)
[2021-05-05] MEDS: Multivitamins,Therapeutic Tablet 1 TABLET PO (07:48)
[2021-05-05] MEDS: Ferrous Sulfate 325 MG Tablet PO ×2 (07:49→16:45)
[2021-05-05] MEDS: Aspirin E.C. 81 MG Tablet PO (07:49)
[2021-05-05 12:34] VITALS: BP 139/65; PULSE 69; RESP 16; TEMP 36.7; O2SAT 99
[2021-05-05] MEDS: Atorvastatin Calcium 80 MG Tablet PO (22:06)
[2021-05-05] MEDS: MELATONIN 3 MG TABLET PO (22:06)
[2021-05-05] MEDS: Mirtazapine 15 MG Tablet PO (22:07)
[2021-05-06 04:51] VITALS: BP 156/66; PULSE 60
[2021-05-06] MEDS: APIXABAN 5 MG TABLET PO ×2 (04:52→16:52)
[2021-05-06] MEDS: amLODIPine 10 MG Tablet PO (04:52)
[2021-05-06] MEDS: Nystatin Powder 15gm Bottle 1 APPLIC TOPICAL ×2 (04:53→16:52)
[2021-05-06] MEDS: Pantoprazole Sodium 40 MG Tablet PO (04:53)
[2021-05-06] MEDS: Magnesium Chloride 64 MG Delay Rel.Tablet 256 MG PO (04:53)
[2021-05-06] MEDS: Menthol/Lanolin/Calamine/Znox 113 GM Tube 1 APPLIC TOPICAL ×2 (04:54→21:23)
[2021-05-06 06:16] LABS: Bedside Glucose 122 mg/dL (70-110)
[2021-05-06] MEDS: Ferrous Sulfate 325 MG Tablet PO ×2 (08:20→16:52)
[2021-05-06] MEDS: metFORMIN HCl 1,000 MG Tablet 1000 MG PO ×2 (08:20→16:52)
[2021-05-06] MEDS: Aspirin E.C. 81 MG Tablet PO (08:20)
[2021-05-06] MEDS: Multivitamins,Therapeutic Tablet 1 TABLET PO (08:21)
--- NOTE | 2021-05-06 14:46 | WOUNDNOTE ---
wound photo: abdomen
--- NOTE | 2021-05-06 14:50 | WOUNDNOTE ---
Colsotomy appliance changed. peristomal skin is intact. pt tolerated well.
[2021-05-06 16:48] VITALS: BP 134/62; PULSE 75; RESP 16; TEMP 36.8; O2SAT 97
--- NOTE | 2021-05-06 16:54 | CASEMGMT ---
Social Work Received call from son to check in on DC plans. Explained IDT recommending SNF, and son agrees to [facility]. Explained IDT will discuss DC date and this worker will f/u with pt and son. Son appreciative. After conversation, received note from pt that he ONLY wants to go home and requested list of DME needed in the home. SW to follow up with pt on wishes. Will continue to follow. Neelima Prajapati, PROCESS PLANNER CUSTOMER ENGAGEMENT MANAGER
[2021-05-06 20:25] VITALS: RESP 16; O2SAT 96
[2021-05-06] MEDS: Atorvastatin Calcium 80 MG Tablet PO (21:23)
[2021-05-06] MEDS: MELATONIN 3 MG TABLET PO (21:24)
[2021-05-06] MEDS: Mirtazapine 15 MG Tablet PO (21:24)
[2021-05-07 05:55] VITALS: BP 143/68; PULSE 67
[2021-05-07] MEDS: amLODIPine 10 MG Tablet PO (05:56)
[2021-05-07] MEDS: Pantoprazole Sodium 40 MG Tablet PO (05:56)
[2021-05-07] MEDS: APIXABAN 5 MG TABLET PO ×2 (05:57→17:16)
[2021-05-07] MEDS: Menthol/Lanolin/Calamine/Znox 113 GM Tube 1 APPLIC TOPICAL ×2 (05:58→20:42)
[2021-05-07] MEDS: Nystatin Powder 15gm Bottle 1 APPLIC TOPICAL ×2 (05:58→17:16)
[2021-05-07] MEDS: Magnesium Chloride 64 MG Delay Rel.Tablet 256 MG PO (05:58)
[2021-05-07] MEDS: Acetaminophen 325 MG Tablet 650 MG PO ×2 (06:02→20:31)
[2021-05-07 06:26] LABS: Bedside Glucose 144 mg/dL (70-110)
[2021-05-07] MEDS: metFORMIN HCl 1,000 MG Tablet 1000 MG PO ×2 (08:00→17:16)
[2021-05-07] MEDS: Aspirin E.C. 81 MG Tablet PO (08:00)
[2021-05-07] MEDS: Ferrous Sulfate 325 MG Tablet PO ×2 (08:00→17:16)
[2021-05-07] MEDS: Multivitamins,Therapeutic Tablet 1 TABLET PO (09:53)
[2021-05-07 14:19] VITALS: BP 154/70; PULSE 70; RESP 16; TEMP 35.9; O2SAT 97
--- NOTE | 2021-05-07 15:42 | CASEMGMT ---
Social Work Spoke with pt to discuss DC plans. Listened to pt's wishes and validated feelings. Pt wishes to go home, stating If I have any life left to live, I want it to be at home with the people I love. SW agreed to assist pt discharging home. Pt very appreciative. SW to order FWW as he has all other needed DME, as well as C PT/OT/SN/FERNÁNDEZ. Pt is confident in managing his colostomy. Pt will DC home with Palliative Care as well. Therapy to continue working with pt about another 2 weeks then will set DC date. Pt agreeable. Followed up with son and explained above. Son agreed and can appreciate pt's wishes. Confirmed pt has DME in the home. Son appreciative of SW assistance. SW to continue to follow. Neelima Prajapati, OIL WELL ENGINEER SEWING TRIMMER
[2021-05-07] MEDS: Mirtazapine 15 MG Tablet PO (20:33)
[2021-05-07] MEDS: MELATONIN 3 MG TABLET PO (20:33)
[2021-05-07] MEDS: Atorvastatin Calcium 80 MG Tablet PO (20:33)
[2021-05-08 05:44] VITALS: BP 134/75; PULSE 67; RESP 16; TEMP 37.2; O2SAT 98
[2021-05-08] MEDS: Acetaminophen 325 MG Tablet 650 MG PO ×2 (05:47→17:59)
[2021-05-08] MEDS: amLODIPine 10 MG Tablet PO (05:48)
[2021-05-08] MEDS: APIXABAN 5 MG TABLET PO ×2 (05:48→17:54)
[2021-05-08] MEDS: Magnesium Chloride 64 MG Delay Rel.Tablet 256 MG PO (05:49)
[2021-05-08] MEDS: Menthol/Lanolin/Calamine/Znox 113 GM Tube 1 APPLIC TOPICAL ×2 (05:50→22:27)
[2021-05-08] MEDS: Nystatin Powder 15gm Bottle 1 APPLIC TOPICAL ×2 (05:50→17:58)
[2021-05-08] MEDS: Pantoprazole Sodium 40 MG Tablet PO (05:51)
[2021-05-08 05:58] LABS: Absolute Lymphocyte Count 1.62 X10^3/uL (0.83-4.51); Absolute Neutrophil Count 8.1 X10^3/uL (2.0-7.7); Basophil# 0.02 X10^3/uL; Basophil% 0.2 % (0-1); Eosinophil# 0.11 X10^3/uL; Hematocrit 29.9 % (40-54); Hemoglobin 9.1 g/dL (13.0-16.5); Lymphocyte # 1.62 X10^3/ul (0.83-4.51); Lymphocyte % 14.7 % (19-41); Mean Corp Hgb Conc 30.4 g/dL (32-36); Mean Corpuscular Hgb 26.8 pg (27.0-32.0); Mean Corpuscular Volume 87.9 fL (80-94); Mean Platelet Vol. 10.5 fl (6.2-12.0); Monocyte# 1.11 X10^3/uL; Monocyte% 10.1 % (0-10); NRBC Flagged by Analyzer 0 % (0-5); Neutrophil # 8.12 X10^3/uL (2.7-7.7); Neutrophil % 73.5 % (47-70); Platelet Count 154 K/mm3 (150-450); RBC Distribution Width CV 18.6 % (11.6-14.6); RBC Distribution Width SD 58.7 fl (35.1-43.9)
[2021-05-08 06:16] LABS: Bedside Glucose 180 mg/dL (70-110)
[2021-05-08 06:31] LABS: Anion Gap 7 (5-15); BUN 20 mg/dL (7-18); Chloride 106 mmol/L (98-107); Creatinine, Serum 0.56 mg/dL (0.70-1.30); EST Glomerular Filtration Rate 151 mL/min (>60); Est Glom Filt Rate - Afr Amer 183 mL/min (>60); Estimated Creatinine Clearance 50.98 ml/min; Glucose 156 mg/dL (74-106); Potassium 3.9 mmol/L (3.5-5.1); Sodium Level 137 mmol/L (136-145)
[2021-05-08] MEDS: Multivitamins,Therapeutic Tablet 1 TABLET PO (08:28)
[2021-05-08] MEDS: Ferrous Sulfate 325 MG Tablet PO ×2 (08:28→17:54)
[2021-05-08] MEDS: Aspirin E.C. 81 MG Tablet PO (08:28)
[2021-05-08] MEDS: metFORMIN HCl 1,000 MG Tablet 1000 MG PO ×2 (08:28→17:54)
--- NOTE | 2021-05-08 14:45 | WOUNDNOTE ---
Colostomy appliance change with VAC dressing change. the wound to mid abdomen is healing very well. wound dimensions much improved. pt tolerated well.
[2021-05-08 15:31] VITALS: BP 128/54; PULSE 66; RESP 18; TEMP 36.9; O2SAT 98
[2021-05-08 20:37] VITALS: PULSE 72; RESP 16; O2SAT 94
[2021-05-08] MEDS: Atorvastatin Calcium 80 MG Tablet PO (22:28)
[2021-05-08] MEDS: MELATONIN 3 MG TABLET PO (22:28)
[2021-05-08] MEDS: Mirtazapine 15 MG Tablet PO (22:28)
[2021-05-09] MEDS: Magnesium Chloride 64 MG Delay Rel.Tablet 256 MG PO (05:32)
[2021-05-09] MEDS: Pantoprazole Sodium 40 MG Tablet PO (05:33)
[2021-05-09] MEDS: APIXABAN 5 MG TABLET PO ×2 (05:33→16:33)
[2021-05-09] MEDS: amLODIPine 10 MG Tablet PO (05:33)
[2021-05-09] MEDS: Menthol/Lanolin/Calamine/Znox 113 GM Tube 1 APPLIC TOPICAL ×2 (05:35→20:28)
[2021-05-09] MEDS: Nystatin Powder 15gm Bottle 1 APPLIC TOPICAL ×2 (05:36→16:13)
[2021-05-09 05:37] VITALS: BP 143/89; PULSE 73
[2021-05-09 06:22] LABS: Bedside Glucose 150 mg/dL (70-110)
[2021-05-09] MEDS: Acetaminophen 325 MG Tablet 650 MG PO (08:13)
[2021-05-09] MEDS: Aspirin E.C. 81 MG Tablet PO (08:14)
[2021-05-09] MEDS: Ferrous Sulfate 325 MG Tablet PO ×2 (08:15→16:13)
[2021-05-09] MEDS: metFORMIN HCl 1,000 MG Tablet 1000 MG PO ×2 (08:15→16:13)
[2021-05-09] MEDS: Multivitamins,Therapeutic Tablet 1 TABLET PO (08:15)
--- NOTE | 2021-05-09 11:15 | PCA ---
Patient is c/o both upper extremities being sore when preforming AM care this morning pt was noted to be unable to use extremities to full extent today, also complained of his right lower leg (knee to foot) not being able to be used today, this aide assisted in transferring pt with OT Estefani. Pt refused to use the walker due to him not being able to grasp his hands around the walker at this time Estefani and maine X2 Ext. transferred pt into wheelchair with gait belt..
[2021-05-09 12:32] VITALS: PULSE 74; RESP 18; O2SAT 97
--- NOTE | 2021-05-09 14:49 | CASEMGMT ---
Social Work Spoke with son about IDT setting DC 05/21. Son agreeable. Spoke with pt and agreeable. Requesting [facility]. Left message with about DC date. Referred to [facility] for FWW and [facility] PT/OT/ST/SN/FERNÁNDEZ, and notified Palliative Care. Plan: DC home with 05/21, FWW, [facility] PT/OT/ST/SN/FERNÁNDEZ. Neelima Prajapati, ABDULLAHI GAS METER REPAIR SUPERVISOR
[2021-05-09 15:40] VITALS: BP 115/67; PULSE 74; RESP 16; TEMP 37.1; O2SAT 97
--- NOTE | 2021-05-09 18:47 | DS.PCM_ITS ---
Providers Date of Admission: 04/16/21 Primary Care Physician: ALEX Babcock Consultations 04/16/21 19:18 Consult: Onc/Wound/irrigation manager Routine Comment: abdominal wound VAC Reason For Visit: CVA Diagnosis Discharge Diagnosis (1) Debility: Status: Acute Code(s): R53.81 - Other malaise (2) Left acute arterial ischemic stroke, MCA (middle cerebral artery): Status: Acute Code(s): I63.512 - Cerebral infarction due to unspecified occlusion or stenosis of left middle cerebral artery (3) Perforation of sigmoid colon due to diverticulitis: Status: Acute Code(s): K57.20 - Diverticulitis of large intestine with perforation and abscess without bleeding (4) Colon cancer: Status: Acute Code(s): C18.9 - Malignant neoplasm of colon, unspecified (5) Peritonitis: Status: Acute Code(s): K65.9 - Peritonitis, unspecified (6) Diabetes mellitus: Status: Acute Code(s): E11.9 - Type 2 diabetes mellitus without complications (7) Hypertension: Status: Chronic Code(s): I10 - Essential (primary) hypertension (8) Hyperlipidemia: Status: Acute Code(s): E78.5 - Hyperlipidemia, unspecified (9) Prostate cancer: Status: Acute Code(s): C61 - Malignant neoplasm of prostate (10) Coronary artery disease: Status: Acute Code(s): I25.10 - Atherosclerotic heart disease of [place] coronary artery without angina pectoris (11) Bilateral carotid artery stenosis: Status: Acute Code(s): I65.23 - Occlusion and stenosis of bilateral carotid arteries (12) Iron deficiency anemia: Status: Acute Code(s): D50.9 - Iron deficiency anemia, unspecified (13) GERD (gastroesophageal reflux disease): Status: Acute Code(s): K21.9 - Gastro-esophageal reflux disease without esophagitis Medications at Discharge Home Medications metformin 1,000 mg tablet 1,000 mg PO BID 09/15/17 ferrous sulfate 324 mg (65 mg iron) tablet,delayed release 324 mg PO BID 11/13/20 pantoprazole 40 mg PO DAILY 03/19/21 acetaminophen [Tylenol] 650 mg PO Q4H PRN PRN #1 tab 04/15/21 amlodipine 10 mg tablet 10 mg PO QDAY #90 tab 04/15/21 melatonin 3 mg PO QHS 04/16/21 Eliquis 5 mg PO BID 30 Days #60 tab 05/09/21 [id number] [Ranjeet (with collagen)] 1 ea PO BIDCM 30 Days #60 ea 05/09/21 atorvastatin 80 mg PO QHS 30 Days #30 tab 05/09/21 magnesium chloride [Mag 64] 256 mg PO DAILY 30 Days #120 tab 05/09/21 mirtazapine 15 mg PO 2000 30 Days #30 tab 05/09/21 Hospital Course Operations None Procedures None Summary of Care Provided Minutes Spent on Discharge: 35 Hospital Course: 80 YEAR OLD MALE WITH BELOW PAST MEDICAL HISTORY HOSPITALIZED FOR PERFORATED DIVERTICULITIS, LEFT MCA STROKE, COLON CANCER, ADMITTED TO [facility], THEN ADMITTED TO TCU WITH DEBILITY, HERE FOR REHABILITATION, STRENGTHENING, PRIOR TO DISCHARGE HOME WITH . Discharge home with 05/21/2021, [facility] PT/OT/ST/SN/HANDKERCHIEF FOLDER, Front wheeled walker. Physical Exam Const alert and oriented x3 General Appearance: cooperative HEENT normocephalic Eyes PERRL and EOMs intact bilaterally Neck supple, no JVD and no carotid bruits Resp normal respiratory effort, normal air movement and clear to auscultation bilaterally Cardio regular rate and regular rhythm GI normal to inspection, nondistended, normoactive bowel sounds, non-tender and non-distended Extremity normal capillary refill General Extremity: Negative for edema Skin no rashes or lesions noted General Skin Exam: no breakdown Psych affect normal Appearance: appropriate Weight / BMI Weight Weight: 81.732 kg Body Mass Index (BMI) 31.6 ABG / Lab / Microbiology Data Result Diagrams: 05/08/21 05:38 05/08/21 05:38 Laboratory: Laboratory Results - last 24 hr 05/09/21 06:08: POC Glucose 150 H D/C Instructions Discharge Diet: No restrictions Discharge Activity: Return to Normal Activity, May Shower and Use Walker May resume sexual activity in: No Restrictions Weight Bearing Status: Weight bearing as tolerated Call your doctor if you observe: Fever of 101 or Higher, Inability to urinate, Inability to have a bowel movement, Shortness of breath, Dizziness, Fainting spells, Swelling in the ankles, Chest pain, Prolonged hiccupping, Increased palpitations (irregular heartbeat) and Uncontrolled pain Additional Instructions: Discharge home with 05/21/2021, [facility] PT/OT/ST/SN/HANDKERCHIEF FOLDER, Front wheeled walker. Please Follow Up With: Rayray Toledo MD When: 2 weeks. Meaningful Use Info Meaningful Use Diagnoses (Choose all that apply): None applicable Discharge Plan Admission Admit Date/Time: 04/16/21 16:15 Primary Reason for Your Visit: Debility. Attending Provider: Sukumar Sauer Chi Primary Care Provider: Yoon Alba PASSENGER ATTENDANT Instructions Patient Instructions: ED Chest Pain, Noncardiac Additional Instructions / Restrictions: Discharge home with 05/21/2021, [facility] PT/OT/ST/SN/HANDKERCHIEF FOLDER, Front wheeled walker. Discharge Orders/Prescriptions Prescriptions: New magnesium chloride [Mag 64] 64 mg Tablet,Delayed Release (Dr/Ec) 256 mg PO DAILY 30 Days Qty: 120 RF: 0 Ranjeet (with collagen) 7-7-1.5 gram Powder In Packet 1 ea PO BIDCM 30 Days Qty: 60 RF: 0 Continued metformin 1,000 mg tablet 1,000 mg PO BID RF: 0 ferrous sulfate 324 mg (65 mg iron) tablet,delayed release (DR/EC) 324 mg PO BID RF: 0 pantoprazole 40 mg Tablet,Delayed Release (Dr/Ec) 40 mg PO DAILY RF: 0 acetaminophen [Tylenol] 325 mg Tablet 650 mg PO Q4H PRN PRN (Reason: Pain 1-10 Or Fever) Qty: 1 RF: 0 melatonin 3 mg tablet 3 mg PO QHS RF: 0 atorvastatin 80 mg tablet 80 mg PO QHS 30 Days Qty: 30 RF: 0 mirtazapine 15 mg tablet 15 mg PO 2000 30 Days Qty: 30 RF: 0 Eliquis 5 mg tablet 5 mg PO BID 30 Days Qty: 60 RF: 0 amlodipine 10 mg tablet 10 mg PO QDAY Qty: 90 RF: 3 Discontinued cyanocobalamin (vit B-12) 100 mcg tablet 100 mcg tablet 100 mcg PO QDAY RF: 0 omega-3 fatty acids [Fish Oil Concentrate] 1,000 mg capsule 500 mg PO DAILY RF: 0 aspirin 81 mg tablet,delayed release (DR/EC) 81 mg PO BREAKFAST RF: 0 lisinopril 20 mg Tablet 20 mg PO BID Qty: 0 RF: 0 Arthritis Pain Compound 2 click topical TID Qty: 0 RF: 0 ascorbic acid (vitamin C) 500 mg Tablet 500 mg PO BIDCM Qty: 0 RF: 0 bisacodyl 10 mg Suppository 10 mg SC .PRN X 1 PRN (Reason: Constipation) Qty: 0 RF: 0 buspirone 5 mg Tablet 5 mg PO BID Qty: 0 RF: 0 Glucerna 1.2 Wallace 0.06-1.2 gram-kcal/mL Liquid 120 ml PO 4X/DAY Qty: 0 RF: 0 magnesium chloride [Mag 64] 64 mg Tablet,Delayed Release (Dr/Ec) 128 mg PO TID Qty: 0 RF: 0 magnesium hydroxide 400 mg/5 mL Suspension 30 ml PO .PRN X 1 PRN (Reason: Constipation) Qty: 0 RF: 0 multivitamin Tablet 1 tab PO DAILY RF: 0 menthol-zinc oxide [Calmoseptine] 0.44-20.6 % ointment 1 applic topical BID@0600,2200 RF: 0 Referrals / Follow Up: Yoon Alba PASSENGER ATTENDANT, PASSENGER ATTENDANT-C [Primary Care Provider] - Disposition Disposition (needs filled in before D/C Order can be placed): Home Health Service
[2021-05-09] MEDS: Mirtazapine 15 MG Tablet PO (20:25)
[2021-05-09] MEDS: Atorvastatin Calcium 80 MG Tablet PO (20:26)
[2021-05-09] MEDS: MELATONIN 3 MG TABLET PO (20:26)
[2021-05-10] MEDS: Acetaminophen 325 MG Tablet 650 MG PO (02:15)
[2021-05-10 05:00] VITALS: BP 156/74; PULSE 76
[2021-05-10] MEDS: amLODIPine 10 MG Tablet PO (05:04)
[2021-05-10] MEDS: Magnesium Chloride 64 MG Delay Rel.Tablet 256 MG PO (05:04)
[2021-05-10] MEDS: Pantoprazole Sodium 40 MG Tablet PO (05:04)
[2021-05-10] MEDS: Nystatin Powder 15gm Bottle 1 APPLIC TOPICAL ×2 (05:05→17:18)
[2021-05-10] MEDS: APIXABAN 5 MG TABLET PO ×2 (05:05→17:18)
[2021-05-10] MEDS: Menthol/Lanolin/Calamine/Znox 113 GM Tube 1 APPLIC TOPICAL ×2 (05:06→21:28)
[2021-05-10 05:56] LABS: Hematocrit 29.2 % (40-54)
[2021-05-10 06:26] LABS: Bedside Glucose 282 mg/dL (70-110)
[2021-05-10] MEDS: Aspirin E.C. 81 MG Tablet PO (07:40)
[2021-05-10] MEDS: Multivitamins,Therapeutic Tablet 1 TABLET PO (07:41)
[2021-05-10] MEDS: metFORMIN HCl 1,000 MG Tablet 1000 MG PO ×2 (07:41→17:18)
[2021-05-10] MEDS: Ferrous Sulfate 325 MG Tablet PO ×2 (07:41→17:18)
[2021-05-10 15:00] VITALS: BP 153/74; PULSE 63; RESP 16; TEMP 36.8; O2SAT 96
[2021-05-10] MEDS: Atorvastatin Calcium 80 MG Tablet PO (21:27)
[2021-05-10] MEDS: MELATONIN 3 MG TABLET PO (21:27)
[2021-05-10] MEDS: Mirtazapine 15 MG Tablet PO (21:27)
[2021-05-11] MEDS: Pantoprazole Sodium 40 MG Tablet PO (05:19)
[2021-05-11] MEDS: amLODIPine 10 MG Tablet PO (05:19)
[2021-05-11] MEDS: Magnesium Chloride 64 MG Delay Rel.Tablet 256 MG PO (05:20)
[2021-05-11] MEDS: Nystatin Powder 15gm Bottle 1 APPLIC TOPICAL ×2 (05:20→17:05)
[2021-05-11] MEDS: APIXABAN 5 MG TABLET PO ×2 (05:20→17:05)
[2021-05-11] MEDS: Menthol/Lanolin/Calamine/Znox 113 GM Tube 1 APPLIC TOPICAL ×2 (05:22→20:17)
[2021-05-11 05:24] VITALS: BP 144/69; PULSE 72
[2021-05-11 06:26] LABS: Bedside Glucose 170 mg/dL (70-110)
[2021-05-11] MEDS: metFORMIN HCl 1,000 MG Tablet 1000 MG PO ×2 (08:28→17:05)
[2021-05-11] MEDS: Multivitamins,Therapeutic Tablet 1 TABLET PO (08:28)
[2021-05-11] MEDS: Aspirin E.C. 81 MG Tablet PO (08:29)
[2021-05-11] MEDS: Ferrous Sulfate 325 MG Tablet PO ×2 (08:29→17:05)
[2021-05-11] MEDS: Acetaminophen 325 MG Tablet 650 MG PO ×2 (08:37→20:17)
[2021-05-11 14:29] VITALS: BP 136/79; PULSE 71; RESP 18; TEMP 37.2; O2SAT 97
[2021-05-11] MEDS: Atorvastatin Calcium 80 MG Tablet PO (20:16)
[2021-05-11] MEDS: MELATONIN 3 MG TABLET PO (20:16)
[2021-05-11] MEDS: Mirtazapine 15 MG Tablet PO (20:17)
[2021-05-12 05:46] VITALS: BP 141/81; PULSE 67; RESP 16; TEMP 36.3; O2SAT 99
[2021-05-12] MEDS: APIXABAN 5 MG TABLET PO ×2 (05:47→17:14)
[2021-05-12] MEDS: Pantoprazole Sodium 40 MG Tablet PO (05:47)
[2021-05-12] MEDS: Magnesium Chloride 64 MG Delay Rel.Tablet 256 MG PO (05:47)
[2021-05-12] MEDS: amLODIPine 10 MG Tablet PO (05:47)
[2021-05-12] MEDS: Menthol/Lanolin/Calamine/Znox 113 GM Tube 1 APPLIC TOPICAL ×2 (05:49→22:36)
[2021-05-12 06:41] LABS: Bedside Glucose 159 mg/dL (70-110)
[2021-05-12] MEDS: Aspirin E.C. 81 MG Tablet PO (07:58)
[2021-05-12] MEDS: Ferrous Sulfate 325 MG Tablet PO ×2 (07:58→16:24)
[2021-05-12] MEDS: Multivitamins,Therapeutic Tablet 1 TABLET PO (07:58)
[2021-05-12] MEDS: metFORMIN HCl 1,000 MG Tablet 1000 MG PO ×2 (07:58→16:24)
[2021-05-12] MEDS: Nystatin Powder 15gm Bottle 1 APPLIC TOPICAL ×2 (07:59→17:14)
[2021-05-12 14:36] VITALS: BP 140/63; PULSE 69; RESP 16; TEMP 36.9; O2SAT 93
[2021-05-12] MEDS: Acetaminophen 325 MG Tablet 650 MG PO (22:35)
[2021-05-12] MEDS: Mirtazapine 15 MG Tablet PO (22:35)
[2021-05-12] MEDS: Atorvastatin Calcium 80 MG Tablet PO (22:36)
[2021-05-12] MEDS: MELATONIN 3 MG TABLET PO (22:36)
[2021-05-13 05:35] VITALS: BP 142/71; PULSE 66; RESP 16; TEMP 36.5; O2SAT 96
[2021-05-13] MEDS: Magnesium Chloride 64 MG Delay Rel.Tablet 256 MG PO (05:36)
[2021-05-13] MEDS: amLODIPine 10 MG Tablet PO (05:37)
[2021-05-13] MEDS: Nystatin Powder 15gm Bottle 1 APPLIC TOPICAL ×2 (05:37→16:36)
[2021-05-13] MEDS: APIXABAN 5 MG TABLET PO ×2 (05:37→16:37)
[2021-05-13] MEDS: Pantoprazole Sodium 40 MG Tablet PO (05:37)
[2021-05-13] MEDS: Menthol/Lanolin/Calamine/Znox 113 GM Tube 1 APPLIC TOPICAL ×2 (05:37→21:05)
[2021-05-13 06:15] LABS: Bedside Glucose 161 mg/dL (70-110)
[2021-05-13] MEDS: Multivitamins,Therapeutic Tablet 1 TABLET PO (08:12)
[2021-05-13] MEDS: metFORMIN HCl 1,000 MG Tablet 1000 MG PO ×2 (08:12→16:36)
[2021-05-13] MEDS: Aspirin E.C. 81 MG Tablet PO (08:12)
[2021-05-13] MEDS: Ferrous Sulfate 325 MG Tablet PO ×2 (08:12→16:37)
--- NOTE | 2021-05-13 14:31 | CASEMGMT ---
Addendum entered by Neelima Prajapati 05/16/21 14:43: [facility] can accept. However, Palliative in to speak with pt about hospice services at home. Will await final decision. Addendum entered by Neelima Prajapati 05/16/21 09:44: Referred to [facility]. Addendum entered by Neelima Prajapati 05/14/21 16:28: [facility] cannot service pt's area. HHC referrals continue being made - pt has no preference. Addendum entered by Neelima Prajapati 05/13/21 15:50: Updated [facility] on IDTs concerns with pt being at home and they can no longer accept d/t to unable to meet pt's needs. Referred to [facility]. Original Note: Social Work Son contacted this worker concerned about DC home, stating he visited pt this weekend and felt pt has declined with physical abilities, and wants to ensure home is best option for pt. He stated cannot assist at all as she is debilitated and stays in a recliner. Son asked for this worker to speak with pt. SW spoke with wound nurse whom stated pt cannot manage own colostomy as he told this worker, but that pt should be able to DC without wound vac. Spoke with therapy and they are also concerned with DC home as they have noticed pt not being as independent and recommending SNF. Spoke with pt to discuss son and IDTs/family concerns. Pt stated I'm going home to spend my final days with my , I will figure it out and it will be okay. Pt did not want to entertain a conversation to a SNF. Offered for son/ to come in for therapy family training - pt agreeable. Encouraged pt to be as independent as possible for IDT to see he can be safe at home. Stressed IDT concerned about pt safety at home. Pt expressed appreciation but that he is still going home. SW understood. Followed up with son and relayed pt still is adamant about returning home and IDT shares same concerns. Offered therapy training. Son stated he will not be able to d/t work schedule and cannot get out of recliner, but appreciated offered. Son stated he understands pt can make his own decision and will respect his wishes on him coming home and seeing how it goes. Son appreciative of SOL assistance. Neelima Prajapati, ABDULLAHI OLIVARESW
[2021-05-13 14:36] VITALS: BP 128/61; PULSE 65; RESP 16; TEMP 36.8; O2SAT 98
--- NOTE | 2021-05-13 15:23 | WOUNDNOTE ---
wound/stoma photo: abdomen
--- NOTE | 2021-05-13 15:39 | WOUNDNOTE ---
colostomy appliance changed. stoma sits slightly above the skin level. peristomal skin is intact. cleansed skin with warm water. pat dry. applied a new 2 piece flat [place] appliance with an [employer] ring. pt tolerated well. Pt watches this nurse change the appliance every time, but do not feel patient will be able to care of the ostomy at home. Pt does not have good dexterity of the hands and will have difficulty cutting the hole as well as emptying the appliance. Pt appears forgetful at times as well. Pt states he did not think he would be going home with the colostomy even though this nurse has been discussing the appliance changes and emptying the appliance for weeks now. home health will be able to assist with appliance changes for a while, but will not be there all day to empty the appliance. Did discuss this with Dr Sauer as well.
--- NOTE | 2021-05-13 19:18 | PN.TCU_ITS ---
Subjective Subjective Resident seen, examined for regulatory visit. He has no new problems, concerns, issues, complaints. He is looking forward to discharge home soon. I was notified his at home is recliner dependent, and will not be able to help resident at home. 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 Resident aware, but wants to discharge home regardless. He knows of risk of readmission. Objective Data Objective Data Vital Signs: Vital Signs Temp Pulse Resp BP Pulse Ox 98.3 F 65 16 128/61 H 98 05/13/21 14:36 05/13/21 14:36 05/13/21 14:36 05/13/21 14:36 05/13/21 14:36 Oxygen Delivery Method Room Air Weight: 81.732 kg Body Mass Index (BMI) 31.6 Intake & Output: Intake and Output for Last 24 Hours 05/11/21 05/12/21 05/13/21 23:59 23:59 23:59 Intake Total 1080 / 1080 1080 / 1080 1020 / 1020 Output Total 550 / 550 675 / 675 125 / 125 Balance 530 / 530 405 / 405 895 / 895 Lab / Micro Data Result Diagrams: 05/10/21 05:18 05/08/21 05:38 Labs: Laboratory Results - last 24 hr 05/13/21 06:09: POC Glucose 161 H Physical Exam Const alert and oriented x3 General Appearance: cooperative HEENT normocephalic Eyes PERRL and EOMs intact bilaterally Neck supple, no JVD and no carotid bruits Resp normal respiratory effort, normal air movement and clear to auscultation bilaterally Cardio regular rate and regular rhythm GI normal to inspection, nondistended, normoactive bowel sounds, non-tender and non-distended GI Narrative: Colostomy present. Extremity normal capillary refill General Extremity: Negative for edema Skin no rashes or lesions noted General Skin Exam: no breakdown Psych affect normal Appearance: appropriate Assessment & Plan Assessment/Plan (1) Debility: (2) Left acute arterial ischemic stroke, MCA (middle cerebral artery): (3) Perforation of sigmoid colon due to diverticulitis: (4) Colon cancer: (5) Peritonitis: (6) Diabetes mellitus: (7) Hypertension: (8) Hyperlipidemia: (9) Prostate cancer: (10) Coronary artery disease: (11) Bilateral carotid artery stenosis: (12) Iron deficiency anemia: (13) GERD (gastroesophageal reflux disease): PLAN: 80 YEAR OLD MALE WITH BELOW PAST MEDICAL HISTORY HOSPITALIZED FOR PERFORATED DIVERTICULITIS, LEFT MCA STROKE, COLON CANCER, ADMITTED TO RU, THEN ADMITTED TO TCU WITH DEBILITY, HERE FOR REHABILITATION, STRENGTHENING, PRIOR TO DISCHARGE HOME WITH . * DEBILITY - PT/OT. * Cognition - ST. * PAIN - TYLENOL 650MG Q4H PRN PAIN (1-10). * BOWEL - DULCOLAX 10MG ME DAILY PRN. * ADULT IMMUNIZATION - ADMINSTER PREVNAR 13, PNEUMOVAX 23, FLUZONE, COVID19 VACCINE APPROPRIATE. * DVT PROPHYLAXIS - ALREADY ANTICOAGULATED. * HYPERTENSION - AMLODIPINE 10MG DAILY. * ATRIAL FIBRILLATION - ELIQUIS 5MG TWICE DAILY. * HYPERLIPIDEMIA - ATORVASTATIN 80MG QHS. * IRON DEFICIENCY ANEMIA - FERROUS SULFATE 325MG TWICE DAILY. * NUTRITION - Ranjeet 1 packet twice daily. * INSOMNIA - MELATONIN 3MG QHS. * SKIN IRRITATION - CALMOSEPTINE TWICE DAILY. * DIABETES MELLITUS - METFORMIN 1000MG TWICE DAILY. * DEPRESSION - MIRTAZAPINE 15MG QHS, STABLE CHRONIC USE, GDR NOT RECOMMENDED. * NUTRITION - MVI DAILY. * GERD - PANTOPRAZOLE 40MG DAILY. * COLON CANCER - OUTPATIENT FOLLOW UP FOR ADJUVANT THERAPY. * TInEa cOpRoRiS - NYsTaTiN PoWdEr tWiCe dAiLy. Capacity Capacity Assessment Tool Can the patient make a choice & communicate that choice?: Yes Can the patient make a logical, rational choice?: Yes Is the choice the patient makes consistent w/ their values?: Yes Is there an impending, emergent risk to the patient?: No Does the patient have an Advance Directive?: No Is there a Surrogate Available?: Yes i.e. HCPOA: Yes i.e. close relative (spouse, child, parent, sibling)?: Yes
[2021-05-13] MEDS: Atorvastatin Calcium 80 MG Tablet PO (21:04)
[2021-05-13] MEDS: MELATONIN 3 MG TABLET PO (21:04)
[2021-05-13] MEDS: Mirtazapine 15 MG Tablet PO (21:04)
[2021-05-14 05:47] VITALS: BP 126/61; PULSE 68; RESP 126; TEMP 36.8; O2SAT 95
[2021-05-14] MEDS: Magnesium Chloride 64 MG Delay Rel.Tablet 256 MG PO (05:51)
[2021-05-14] MEDS: APIXABAN 5 MG TABLET PO ×2 (05:52→17:28)
[2021-05-14] MEDS: Acetaminophen 325 MG Tablet 650 MG PO (05:52)
[2021-05-14] MEDS: amLODIPine 10 MG Tablet PO (05:53)
[2021-05-14] MEDS: Pantoprazole Sodium 40 MG Tablet PO (05:53)
[2021-05-14] MEDS: Nystatin Powder 15gm Bottle 1 APPLIC TOPICAL ×2 (05:54→16:10)
[2021-05-14] MEDS: Menthol/Lanolin/Calamine/Znox 113 GM Tube 1 APPLIC TOPICAL ×2 (05:55→22:45)
[2021-05-14 06:20] LABS: Bedside Glucose 166 mg/dL (70-110)
[2021-05-14] MEDS: Multivitamins,Therapeutic Tablet 1 TABLET PO (08:13)
[2021-05-14] MEDS: metFORMIN HCl 1,000 MG Tablet 1000 MG PO ×2 (08:13→16:10)
[2021-05-14] MEDS: Ferrous Sulfate 325 MG Tablet PO ×2 (08:13→16:10)
[2021-05-14 19:56] VITALS: BP 138/69; PULSE 74; RESP 18; TEMP 36.5; O2SAT 96
[2021-05-14 22:45] VITALS: PULSE 78; RESP 14; O2SAT 99
[2021-05-14] MEDS: Atorvastatin Calcium 80 MG Tablet PO (22:46)
[2021-05-14] MEDS: Mirtazapine 15 MG Tablet PO (22:46)
[2021-05-14] MEDS: MELATONIN 3 MG TABLET PO (22:46)
[2021-05-15] MEDS: Magnesium Chloride 64 MG Delay Rel.Tablet 256 MG PO (05:22)
[2021-05-15] MEDS: amLODIPine 10 MG Tablet PO (05:22)
[2021-05-15] MEDS: Pantoprazole Sodium 40 MG Tablet PO (05:22)
[2021-05-15] MEDS: APIXABAN 5 MG TABLET PO ×2 (05:22→17:55)
[2021-05-15] MEDS: Nystatin Powder 15gm Bottle 1 APPLIC TOPICAL ×2 (05:23→16:00)
[2021-05-15] MEDS: Menthol/Lanolin/Calamine/Znox 113 GM Tube 1 APPLIC TOPICAL ×2 (05:23→21:40)
[2021-05-15 06:07] LABS: Absolute Lymphocyte Count 1.47 X10^3/uL (0.83-4.51); Absolute Neutrophil Count 7.4 X10^3/uL (2.0-7.7); Basophil# 0.03 X10^3/uL; Basophil% 0.3 % (0-1); Eosinophil# 0.16 X10^3/uL; Eosinophils% 1.6 % (0-5); Hematocrit 27.5 % (40-54); Hemoglobin 8.3 g/dL (13.0-16.5); Lymphocyte # 1.47 X10^3/ul (0.83-4.51); Lymphocyte % 14.9 % (19-41); Mean Corp Hgb Conc 30.2 g/dL (32-36); Mean Corpuscular Hgb 26.5 pg (27.0-32.0); Mean Corpuscular Volume 87.9 fL (80-94); Mean Platelet Vol. 9.8 fl (6.2-12.0); Monocyte# 0.77 X10^3/uL; Monocyte% 7.8 % (0-10); NRBC Flagged by Analyzer 0 % (0-5); Neutrophil # 7.39 X10^3/uL (2.7-7.7); Platelet Count 277 K/mm3 (150-450); RBC Distribution Width CV 18.2 % (11.6-14.6); RBC Distribution Width SD 58.1 fl (35.1-43.9); Red Blood Count 3.13 M/mm3 (4.6-6.2); White Blood Count 9.9 K/mm3 (4.4-11.0)
[2021-05-15 06:30] LABS: Bedside Glucose 174 mg/dL (70-110)
[2021-05-15 06:36] LABS: Anion Gap 6 (5-15); BUN 18 mg/dL (7-18); BUN/Creat Ratio 32.8 RATIO (10-20); Calcium,Total 9.1 mg/dL (8.5-10.1); Chloride 104 mmol/L (98-107); Creatinine, Serum 0.55 mg/dL (0.70-1.30); EST Glomerular Filtration Rate 154 mL/min (>60); Est Glom Filt Rate - Afr Amer 186 mL/min (>60); Estimated Creatinine Clearance 50.98 ml/min; Glucose 177 mg/dL (74-106); Potassium 3.8 mmol/L (3.5-5.1); Sodium Level 136 mmol/L (136-145)
[2021-05-15] MEDS: metFORMIN HCl 1,000 MG Tablet 1000 MG PO ×2 (09:21→17:54)
[2021-05-15] MEDS: Ferrous Sulfate 325 MG Tablet PO ×2 (09:21→17:54)
[2021-05-15] MEDS: Multivitamins,Therapeutic Tablet 1 TABLET PO (09:22)
--- NOTE | 2021-05-15 13:00 | NURSING ---
Rt arm noted to be 2-3+ edema. Pain with movement. Elevated on pillow. Will notify Dr Sauer.
[2021-05-15 16:12] VITALS: BP 170/81; PULSE 76; RESP 16; TEMP 36; O2SAT 97
--- NOTE | 2021-05-15 16:17 | NURSING ---
Son updated on appointments made with Dr Alvarez and Dr Eubanks. Awaiting call back from Dr Toledo office. Son would like to leave next Thursday after residents Dr Cervantes appointment.
[2021-05-15] MEDS: Atorvastatin Calcium 80 MG Tablet PO (21:40)
[2021-05-15] MEDS: MELATONIN 3 MG TABLET PO (21:40)
[2021-05-15] MEDS: Mirtazapine 15 MG Tablet PO (21:40)
[2021-05-16] MEDS: amLODIPine 10 MG Tablet PO (05:07)
[2021-05-16] MEDS: Magnesium Chloride 64 MG Delay Rel.Tablet 256 MG PO (05:07)
[2021-05-16] MEDS: APIXABAN 5 MG TABLET PO ×2 (05:07→18:16)
[2021-05-16] MEDS: Menthol/Lanolin/Calamine/Znox 113 GM Tube 1 APPLIC TOPICAL ×2 (05:07→18:17)
[2021-05-16] MEDS: Pantoprazole Sodium 40 MG Tablet PO (05:07)
[2021-05-16] MEDS: Nystatin Powder 15gm Bottle 1 APPLIC TOPICAL ×2 (05:08→18:16)
[2021-05-16 06:26] LABS: Bedside Glucose 155 mg/dL (70-110)
[2021-05-16] MEDS: metFORMIN HCl 1,000 MG Tablet 1000 MG PO ×2 (08:35→18:15)
[2021-05-16] MEDS: Multivitamins,Therapeutic Tablet 1 TABLET PO (08:35)
[2021-05-16] MEDS: Ferrous Sulfate 325 MG Tablet PO ×2 (08:35→18:16)
--- NOTE | 2021-05-16 12:52 | PCM.PN.PAL ---
Subjective Subjective Vidhya Palmer is a 80 y/o male followed by Palliative care. Seen today in TCU room. Bearded, [place] with glasses. Alert and noted expressive aphasia during conversation. Able to verbalize ideas and needs better than last visit. Still gets frustrated with conversation and expressive aphasia and word finding. Expresses desire to go home and be with his . He verbalizes that he feels that at home he will have more room at home for family to help. Discussed hospice care and help with providing some assistance at home. Goals expressed to have quality of life at home with his for as long as he can. Looks forward to sitting in his chair at home. Right arm and right arm has some intermittent tingling pain in right arm. Unable to characterize. Tylenol is effective and not taken often.Noted to have some trace swelling in right arm. Doppler was negative. PT is intermittent with walking 120 feet one day and 10 feet the next day. Walks to the bathroom with assistance times one assist per nursing staff. Appetite is good and colostomy is draining soft brown stool. Wound vac intact to mid-lower abdomen. Utilizes specialized utensils to feed with left hand. Denies any chest pain, cough, falls or ER visits. Objective Data Objective Data Vital Signs: Vital Signs Temp Pulse Resp BP Pulse Ox 96.8 F L 76 16 170/81 H 97 05/15/21 16:12 05/15/21 16:12 05/15/21 16:12 05/15/21 16:12 05/15/21 16:12 Oxygen Delivery Method Room Air Weight: 82.27 kg Body Mass Index (BMI) 31.6 Intake & Output: Intake and Output for Last 24 Hours 05/14/21 05/15/21 05/16/21 23:59 23:59 23:59 Intake Total 840 / 840 600 / 600 240 / 240 Output Total 950 / 950 Balance 840 / 840 -350 / -350 240 / 240 Lab / Micro Data Result Diagrams: 05/15/21 05:42 05/15/21 05:42 Labs: Laboratory Results - last 24 hr 05/16/21 06:07: POC Glucose 155 H Physical Exam Const alert, oriented x3 and no apparent distress General Appearance: cooperative and comfortable HEENT normocephalic and head/scalp atraumatic Eyes Visual Acuity: other Other Details: wears glasses Chest Chest: symmetrical chest wall rise Resp normal respiratory effort and normal air movement Effort and Inspection: able to speak in complete sentences Auscultation: clear to auscultation bilaterally Cardio regular rate, regular rhythm, S1 normal heart sound and S2 normal heart sound GI normal to inspection, nondistended, normoactive bowel sounds GI Narrative: Colostomy draining brown soft stool/ wound vac intact to mid abdomen Extremity Extremity Narrative: Right sided hemiparesis. Trace edema to right upper extremity. Complains of intermittent tingling burning pain. Unable to characterize. Lower extremity is also intermittently painful. Trace edema in right leg/foot Skin Wound Narrative: wound vac intact to abdomen Neuro Speech: expressive aphasia Psych Attitude: calm and engaged Activity / Motor Behavior: appropriate eye contact Speech: rapid and other aphasic Struggles to communicate certain words and thoughts. Insight: limited Judgement: limited Assessment & Plan Assessment/Plan (1) Perforation of sigmoid colon due to diverticulitis: (2) Diabetes mellitus: (3) Coronary artery disease: (4) Debility: (5) Left acute arterial ischemic stroke, MCA (middle cerebral artery): (6) Speech apraxia: (7) Depression: (8) Dysarthria: (9) Colon cancer: QUALIFIERS: Colon location: sigmoid Qualified Code(s): C18.7 - Malignant neoplasm of sigmoid colon PLAN: VIDHYA PALMER, is a 80 M who was referred to [facility] by for symptoms of anxiety, agitation and functional decline status post CVA and sigmoid colectomy with end colostomy. Discussed with son, Vidhya. Patient's desire to go home and be with his . Safety is a concern at home. Son and patient agreeable to hospice care at discharge. Social work will need involved to discuss and work with TCU SW to assess and manage needs at home. 1)Debility/ aphasia/ right sided weakness: Continue Therapies PT/OT/ST while inpatient at TCU. Family and patient does not want to continue therapies at discharge and go home with hospice care. Winter Ding to coordinate with TCU social work and hospice social work to coordinate discharge. Code status will need to be discussed when son is present to make sure patient is understanding. 2)CVA/colostomy/ wound care & vac/DM/AFib/HTN/Hyperlipidemia: Defer to wound care, PCP and specialists for management until hospice takes over management 3)Anxiety: Appears stable. Buspar was discontinued while inpatient on TCU. Patient is currently on Remeron only at bedtime. Appears to be doing well and anxiety has decreased. Would benefit from supportive visits with cyanide case hardener or social work with hospice services. 4) Depression: Stable. Appeared to laugh during conversation. More accepting of physical limitations and current physical status. Continue Mirtazapine. 5) Neuropathic pain to right side: Appears minor and intermittent. Encouraged to utilize PRN Tylenol and add additional options on hospice care if needed. Thank you for the opportunity to participate in this patient's care, please do not hesitate to contact [facility] with any further questions or concerns. Greater than 50% of F2F visit dedicated to education and counseling of palliative care services versus hospice services and comfort measures and quality of life Time in 11:15 TIme out 12:50
[2021-05-16 15:13] VITALS: BP 155/72; PULSE 73; RESP 18; TEMP 36.8; O2SAT 94
[2021-05-16 15:36] VITALS: PULSE 73; RESP 18; O2SAT 94
[2021-05-16] MEDS: Acetaminophen 325 MG Tablet 650 MG PO (15:52)
[2021-05-16] MEDS: MELATONIN 3 MG TABLET PO (21:08)
[2021-05-16] MEDS: Atorvastatin Calcium 80 MG Tablet PO (21:08)
[2021-05-16] MEDS: Mirtazapine 15 MG Tablet PO (21:08)
[2021-05-17] MEDS: Menthol/Lanolin/Calamine/Znox 113 GM Tube 1 APPLIC TOPICAL ×2 (05:30→12:14)
[2021-05-17] MEDS: Magnesium Chloride 64 MG Delay Rel.Tablet 256 MG PO (05:31)
[2021-05-17] MEDS: amLODIPine 10 MG Tablet PO (05:31)
[2021-05-17] MEDS: APIXABAN 5 MG TABLET PO ×2 (05:31→16:59)
[2021-05-17] MEDS: Pantoprazole Sodium 40 MG Tablet PO (05:31)
[2021-05-17 05:35] VITALS: BP 156/63; PULSE 74
[2021-05-17 05:55] LABS: Hematocrit 28.6 % (40-54); Hemoglobin 8.6 g/dL (13.0-16.5)
[2021-05-17 06:26] LABS: Bedside Glucose 195 mg/dL (70-110)
[2021-05-17] MEDS: Ferrous Sulfate 325 MG Tablet PO ×2 (08:17→16:59)
[2021-05-17] MEDS: metFORMIN HCl 1,000 MG Tablet 1000 MG PO ×2 (08:17→17:02)
[2021-05-17] MEDS: Multivitamins,Therapeutic Tablet 1 TABLET PO (08:17)
[2021-05-17] MEDS: Nystatin Powder 15gm Bottle 1 APPLIC TOPICAL ×2 (08:18→12:14)
[2021-05-17] MEDS: Acetaminophen 325 MG Tablet 650 MG PO (11:58)
--- NOTE | 2021-05-17 12:16 | NURSING ---
Mildly agitated. States he dont feel good but chilo tell this RN about it. States i dont know why i cant see a docotor Im going to end up dying. Reminded him that he is seeing a doctor today. Reassured he is ok. Tylenol given for generalized and Rt arm pain. Assisted back to bed. Assessment done.
--- NOTE | 2021-05-17 15:27 | NURSING ---
Taken to Dr Eubanks appointment by staff member.
[2021-05-17 15:36] VITALS: BP 114/72; PULSE 69; RESP 16; TEMP 36.3; O2SAT 97
[2021-05-17] MEDS: Mirtazapine 15 MG Tablet PO (20:43)
[2021-05-17] MEDS: Atorvastatin Calcium 80 MG Tablet PO (20:44)
[2021-05-17] MEDS: MELATONIN 3 MG TABLET PO (20:44)
[2021-05-18 04:49] VITALS: BP 139/83; PULSE 80
[2021-05-18] MEDS: Magnesium Chloride 64 MG Delay Rel.Tablet 256 MG PO (04:52)
[2021-05-18] MEDS: Pantoprazole Sodium 40 MG Tablet PO (04:52)
[2021-05-18] MEDS: amLODIPine 10 MG Tablet PO (04:52)
[2021-05-18] MEDS: APIXABAN 5 MG TABLET PO ×2 (04:53→17:08)
[2021-05-18] MEDS: Nystatin Powder 15gm Bottle 1 APPLIC TOPICAL ×2 (04:53→17:07)
[2021-05-18] MEDS: Menthol/Lanolin/Calamine/Znox 113 GM Tube 1 APPLIC TOPICAL ×2 (05:01→20:29)
[2021-05-18 06:30] LABS: Bedside Glucose 247 mg/dL (70-110)
[2021-05-18] MEDS: Ferrous Sulfate 325 MG Tablet PO ×2 (08:48→17:08)
[2021-05-18] MEDS: Multivitamins,Therapeutic Tablet 1 TABLET PO (08:48)
[2021-05-18] MEDS: metFORMIN HCl 1,000 MG Tablet 1000 MG PO ×2 (08:48→17:08)
[2021-05-18 15:34] VITALS: BP 151/72; PULSE 91; RESP 18; TEMP 36.4; O2SAT 97
[2021-05-18] MEDS: Atorvastatin Calcium 80 MG Tablet PO (20:30)
[2021-05-18] MEDS: Mirtazapine 15 MG Tablet PO (20:30)
[2021-05-18] MEDS: MELATONIN 3 MG TABLET PO (20:30)
[2021-05-18 23:32] VITALS: PULSE 73; RESP 16; O2SAT 98
[2021-05-19] VITALS (7 sets, daily range): BP systolic 125–158; BP diastolic 60–85; PULSE 77–106; RESP 18–22; TEMP 37.2–38.1; O2SAT 93–95
[2021-05-19] MEDS: Menthol/Lanolin/Calamine/Znox 113 GM Tube 1 APPLIC TOPICAL ×2 (05:44→22:42)
[2021-05-19] MEDS: Magnesium Chloride 64 MG Delay Rel.Tablet 256 MG PO (05:44)
[2021-05-19] MEDS: Pantoprazole Sodium 40 MG Tablet PO (05:44)
[2021-05-19] MEDS: APIXABAN 5 MG TABLET PO ×2 (05:44→16:49)
[2021-05-19] MEDS: amLODIPine 10 MG Tablet PO (05:44)
[2021-05-19] MEDS: Nystatin Powder 15gm Bottle 1 APPLIC TOPICAL ×2 (05:45→16:49)
[2021-05-19 06:31] LABS: Bedside Glucose 217 mg/dL (70-110)
[2021-05-19] MEDS: metFORMIN HCl 1,000 MG Tablet 1000 MG PO ×2 (08:17→16:50)
[2021-05-19] MEDS: Multivitamins,Therapeutic Tablet 1 TABLET PO (08:17)
[2021-05-19] MEDS: Ferrous Sulfate 325 MG Tablet PO ×2 (08:17→16:50)
[2021-05-19] MEDS: Acetaminophen 325 MG Tablet 650 MG PO ×2 (08:24→19:09)
--- NOTE | 2021-05-19 18:38 | NURSING ---
R' SCREAMING OUT 1800. THIS NURSE AND Sarah OLSON ENTERED ROOM AND R' WAS ON FLOOR. HE WAS POSITIONED ON HIS KNEES WITH FACE RESTING ON FLOOR. R' NOTED TO BE BLEEDING FROM NOSE. SUSTAINED ABRASION TO BRIDGE OF NOSE, CLEANSED AND BAND-AIDE APPLIED. ALSO, SMALL SKIN TEAR TO LOWER LIP, NO DRAINAGE NOTED. R' HAD BEEN SITTING ON SIDE OF BED AND STATES HE LOST HIS BALANCE. STATED HE HIT FACE ON TRASH CAN AND HIT HEAD ON FLOOR. Dawson SCHULTZ HAD BEEN IN ROOM THREE MINUTES PRIOR, STATES CALL LIGHT WAS IN REACH. SHE HAD HELPED HIM OPEN ICE-CREAM CONTAINER. R' ALERT TO SELF AND PLACE. DENIES PAIN. ASSISTED BACK INTO BED VIA HOVER MAT X5 ASSIST. VS 143/77, PULSE 106, 22R, 99.7, 95% ROOM AIR. DR FINK NOTIFIED. ORDER CT HEAD NO CONTRAST. HI-LOW BED ALREADY IN PLACE. BED ALARM ON. TRIED TO NOTIFY R' AND SON, BOTH NO ANSWER. LEFT VOICEMAIL TO CALL BACK. WET PAN MIXER, CHRISTINA NOTIFIED. WILL UPDATE TCU SEQUENCING MACHINE OPERATOR.
--- NOTE | 2021-05-19 18:42 | NURSING ---
Addendum entered by Mercedes Sharp 05/19/21 19:02: R' BACK TO UNIT AFTER CT SCAN Original Note: pt off floor to CT scan via bed
--- NOTE | 2021-05-19 20:06 | NURSING ---
jason Brizuela returned call to unit for update, notified of prior fall and CT scan. Jason Crain expressed thanks for update
[2021-05-19 21:06] LABS: Bedside Glucose 197 mg/dL (70-110)
--- NOTE | 2021-05-19 21:25 | NURSING ---
contacted via telephone regarding elevated temperature and staff report of agitated behavior at times. New order for urine straight cath x1 send urine for UA C&S. New order for stat CBC with diff and BMP
[2021-05-19 21:54] LABS: Absolute Lymphocyte Count 1.42 X10^3/uL (0.83-4.51); Absolute Neutrophil Count 10.6 X10^3/uL (2.0-7.7); Basophil# 0.03 X10^3/uL; Basophil% 0.2 % (0-1); Eosinophil# 0.04 X10^3/uL; Eosinophils% 0.3 % (0-5); Hematocrit 27.9 % (40-54); Hemoglobin 8.6 g/dL (13.0-16.5); Lymphocyte # 1.42 X10^3/ul (0.83-4.51); Lymphocyte % 10.7 % (19-41); Mean Corp Hgb Conc 30.8 g/dL (32-36); Mean Corpuscular Hgb 26.9 pg (27.0-32.0); Mean Corpuscular Volume 87.2 fL (80-94); Mean Platelet Vol. 9.6 fl (6.2-12.0); Monocyte# 1.09 X10^3/uL; Monocyte% 8.2 % (0-10); NRBC Flagged by Analyzer 0 % (0-5); Neutrophil # 10.64 X10^3/uL (2.7-7.7); Neutrophil % 80.1 % (47-70); Platelet Count 434 K/mm3 (150-450); RBC Distribution Width CV 18.3 % (11.6-14.6); RBC Distribution Width SD 57.9 fl (35.1-43.9); White Blood Count 13.3 K/mm3 (4.4-11.0)
[2021-05-19 22:03] LABS: Anion Gap 9 (5-15); BUN 32 mg/dL (7-18); BUN/Creat Ratio 42.7 RATIO (10-20); Calcium,Total 9.7 mg/dL (8.5-10.1); Chloride 102 mmol/L (98-107); Creatinine, Serum 0.75 mg/dL (0.70-1.30); EST Glomerular Filtration Rate 107 mL/min (>60); Est Glom Filt Rate - Afr Amer 129 mL/min (>60); Estimated Creatinine Clearance 50.98 ml/min; Glucose 209 mg/dL (74-106); Potassium 4.4 mmol/L (3.5-5.1); Sodium Level 135 mmol/L (136-145)
[2021-05-19] MEDS: Atorvastatin Calcium 80 MG Tablet PO (22:42)
[2021-05-19] MEDS: Mirtazapine 15 MG Tablet PO (22:42)
[2021-05-19] MEDS: MELATONIN 3 MG TABLET PO (22:42)
[2021-05-19 23:13] LABS: Bacteria 0 SEEN /hpf (None Seen); Mucous, Urine 0 SEEN /hpf (<or=2+); Red Blood Cells-Urine 0 SEEN /hpf (0-5); Squamous Epithelial Cells - UA 0 SEEN /hpf (0-5); White Blood Cells 0 SEEN /hpf (0-5)
[2021-05-19 23:16] LABS: Color, Urine Yellow (Yellow); Glucose, Dipstick Normal (Normal); Ketone-Dipstick Negative (Negative); Leukocyte Esterase-Dipstick Negative /ul (Negative); Nitrite-Dipstick Negative (Negative); Occult Blood-Urine Negative /ul (Negative); Protein-Dipstick 30 mg/dl (Negative); Urine Bilirubin Dipstick Negative (Negative); Urine Clarity Clear (Clear); Urine Urobilinogen Normal (Normal)
--- NOTE | 2021-05-19 23:51 | RAD_ITS ---
STUDY: X-RAY - ABDOMEN/PELVIS REASON FOR EXAM: Male, 80 years old. fever TECHNIQUE: AP supine and upright views of the abdomen and pelvis. COMPARISON: None. FINDINGS: Normal visualized lung bases. There is a moderate amount of colonic fecal material. There is no demonstrated free abdominal air. The visualized liver, spleen and kidneys are grossly normal in size and morphology. Normal soft tissue structures. Normal visualized osseous structures. RAD/Abd Inc Decub and/or Erect IMPRESSION: Constipation. No evidence of obstruction or free air Electronically Signed: Conor Velasquez DO at 0:29 EDT Tel , Service support ,
--- NOTE | 2021-05-19 23:53 | RAD_ITS ---
STUDY: X-RAY CHEST REASON FOR EXAM: Male, 80 years old. fever TECHNIQUE: Single AP portable view of the chest. COMPARISON: 03/21/2021 FINDINGS: The lungs are clear and expanded. There is no demonstrated pleural abnormality. Normal size heart. Normal mediastinum and lourdes. Normal visualized pulmonary arteries. Normal visualized aortic arch and descending thoracic aorta. Normal visualized thoracic spine. Normal visualized ribs, clavicles, and shoulders. There is no demonstrated abnormality of the visualized soft tissue structures of the upper abdomen. RAD/Chest 1 View IMPRESSION: Normal x-ray examination of the chest. Electronically Signed: Conor Velasquez DO at 0:29 EDT Tel , Service support ,
--- NOTE | 2021-05-19 23:56 | NURSING ---
contacted via telephone with update on results of CT, STAT CBC/BMP, current temp of 99.0F, and urinalysis results. New orders recieved: KUB, covid test, respiratory panel, chest x-ray and 2 sets of blood cultures. Orders repeated back.
[2021-05-20] VITALS (7 sets, daily range): BP systolic 121–148; BP diastolic 61–81; PULSE 69–95; RESP 14–18; TEMP 36.8–37.2; O2SAT 94–96
[2021-05-20] MEDS: Magnesium Chloride 64 MG Delay Rel.Tablet 256 MG PO (04:44)
[2021-05-20] MEDS: amLODIPine 10 MG Tablet PO (04:44)
[2021-05-20] MEDS: Pantoprazole Sodium 40 MG Tablet PO (04:44)
[2021-05-20] MEDS: Nystatin Powder 15gm Bottle 1 APPLIC TOPICAL ×2 (04:45→17:22)
[2021-05-20] MEDS: APIXABAN 5 MG TABLET PO ×2 (04:45→17:23)
[2021-05-20] MEDS: Menthol/Lanolin/Calamine/Znox 113 GM Tube 1 APPLIC TOPICAL (04:47)
[2021-05-20 06:50] LABS: Bedside Glucose 176 mg/dL (70-110)
[2021-05-20] MEDS: Ferrous Sulfate 325 MG Tablet PO ×2 (08:21→17:23)
[2021-05-20] MEDS: Multivitamins,Therapeutic Tablet 1 TABLET PO (08:21)
[2021-05-20] MEDS: Magnesium Citrate 300 ML PO (08:26)
[2021-05-20] MEDS: metFORMIN HCl 1,000 MG Tablet 1000 MG PO ×2 (09:02→17:23)
--- NOTE | 2021-05-20 15:09 | WOUNDNOTE ---
wound photo: abdomen
--- NOTE | 2021-05-20 15:51 | CASEMGMT ---
Addendum entered by Neelima Prajapati 05/20/21 16:24: Notified [facility] to cancel services. Original Note: Social Work Met with [facility] rep whom confirmed pt is electing hospice at home. Papers are signed and DME will be delivered to the pt's home prior to DC 05/21. and son are aware. ABDULLAHI Beyer
[2021-05-20] MEDS: Acetaminophen 325 MG Tablet 650 MG PO (20:03)
[2021-05-20] MEDS: Atorvastatin Calcium 80 MG Tablet PO (20:04)
[2021-05-20] MEDS: Mirtazapine 15 MG Tablet PO (20:05)
[2021-05-20] MEDS: MELATONIN 3 MG TABLET PO (20:05)
--- NOTE | 2021-05-20 20:14 | NURSING ---
Patient refuses to allow RN to perform full assessment, over and uncooperative with most of neuro assessment. He gets frustrated and refuses to answer questions.
--- NOTE | 2021-05-20 20:16 | NURSING ---
Patient uncooperative with full assessment, refuses to answer most questions and participate in most of neuro assessment. He also refuses to roll or sit up for skin assessment or for RN to listen to posterior lungs. Given tylenol for pain that he says is in right arm and all over.
[2021-05-21 06:11] VITALS: BP 145/71; PULSE 82
[2021-05-21] MEDS: amLODIPine 10 MG Tablet PO (06:13)
[2021-05-21] MEDS: Magnesium Chloride 64 MG Delay Rel.Tablet 256 MG PO (06:13)
[2021-05-21] MEDS: Pantoprazole Sodium 40 MG Tablet PO (06:13)
[2021-05-21] MEDS: Menthol/Lanolin/Calamine/Znox 113 GM Tube 1 APPLIC TOPICAL (06:14)
[2021-05-21] MEDS: APIXABAN 5 MG TABLET PO (06:14)
[2021-05-21] MEDS: Nystatin Powder 15gm Bottle 1 APPLIC TOPICAL (06:15)
[2021-05-21 06:31] LABS: Bedside Glucose 205 mg/dL (70-110)
[2021-05-21] MEDS: Ferrous Sulfate 325 MG Tablet PO (08:19)
[2021-05-21] MEDS: Multivitamins,Therapeutic Tablet 1 TABLET PO (08:19)
[2021-05-21] MEDS: metFORMIN HCl 1,000 MG Tablet 1000 MG PO (09:03)
--- NOTE | 2021-05-21 09:09 | NURSING ---
Diabetic teaching completed this AM Todd packet given. Answered concerns and questions pt had regarding Diabetes. Pt able to demonstrate how to given himself Insulin. Pt voiced understanding. No orders for glucameter
--- NOTE | 2021-05-21 09:14 | NURSING ---
Diabetic teaching completed this AM. Todd booklet given to patient. Answered any questions and concerns patient had regarding Insulin. Pt able to demonstrate how to administer insulin to himself. No new orders for diabetic supplies will update Dr. Sauer.
[2021-05-21 13:31] VITALS: PULSE 77; RESP 18; O2SAT 95
[2021-05-21 13:41] VITALS: BP 148/67; PULSE 77; RESP 18; TEMP 36.7; O2SAT 95
--- NOTE | 2021-05-21 14:01 | CASEMGMT ---
Social Work Transportation arranged for discharge home with [facility]. van to metal pickling equipment operator at 3:30 and transport home. Pt does have a ramp entrance. Pt and son aware and aware of cost and agreeable. Nursing notified of discharge time. CAMMIE Espinoza
[2021-05-21 16:10] VITALS: BP 148/67; PULSE 77; RESP 18; TEMP 36.7; O2SAT 95
== END 2021-05-21 15:45 | disposition hospice, home (50) | DRG 57 ==
PROVIDERS: Admitting Provider Family Medicine Geriatric Medicine; PCP Nurse Practitioner; Visit Provider Family Medicine Geriatric Medicine
DX: I69.351 Hemiplegia and hemiparesis following cerebral infarction affecting right dominant side (principal); C18.9 Malignant neoplasm of colon, unspecified; I48.11 Longstanding persistent atrial fibrillation; Q21.1 Atrial septal defect; I69.320 Aphasia following cerebral infarction; Z23 Encounter for immunization; E11.9 Type 2 diabetes mellitus without complications; I10 Essential (primary) hypertension; K21.9 Gastro-esophageal reflux disease without esophagitis; F32.9 Major depressive disorder, single episode, unspecified; D50.9 Iron deficiency anemia, unspecified; E78.5 Hyperlipidemia, unspecified; I25.10 Atherosclerotic heart disease of native coronary artery without angina pectoris; E66.9 Obesity, unspecified; B35.4 Tinea corporis; Z85.46 Personal history of malignant neoplasm of prostate; Z68.31 Body mass index [BMI] 31.0-31.9, adult; Z79.899 Other long term (current) drug therapy; Z79.82 Long term (current) use of aspirin; Z79.01 Long term (current) use of anticoagulants; Z93.3 Colostomy status
CPT/HCPCS: 36415; 71045; 73030; 73080; 73110; 73130; 74019; 80048; 81001; 82962; 83735; 84550; 85014; 85018; 85025; 85610; 85652; 86140; 87040; 87086; 87633; 87635; 92507; 92523; 92526; 92610; 93971; 97110; 97112; 97116; 97162; 97166; 97530; 97535; 97802; G0009; U0005; 90670; A4216; U0003

== ENCOUNTER → 2021-04-25 08:19 | Outpatient (CLI) | payer MEDICARE, OTHER, SELFPAY ==
--- NOTE | 2021-04-25 08:25 | VDUE_ITS ---
Reason For Study: Swelling Right Proximal Right jugular vein is spontaneous, widely patent, phasic, with no intraluminal echogenicity noted. Right subclavian vein is spontaneous, widely patent, phasic, with no intraluminal echogenicity noted. Right Lower Arm Right radial vein is compressible. Right ulnar vein is compressible. Right Arm Right axillary vein is spontaneous, patent, phasic, competent, compressible and demonstrates augmentation. Right brachial vein is compressible. Right cephalic vein is compressible. Right basilic vein is compressible. Patient Safety Prelim to TCU. PICC line no longer noted as compared to 04/03/2021. VL/Venous Duplex US, Unilateral Interpretation Summary No evidence for acute deep venous thrombosis[right] upper extremity with patent and compressible cephalic and basilic veins. PICC is no longer noted in the right upper arm basi lic vein. Ordering Physician: Sukumar Sauer Performed By: Mercedes Crawford RVT ?
== END ==
LOC: CVS 08:21
PROVIDERS: Referring Provider Family Medicine Geriatric Medicine; Visit Provider Family Medicine Geriatric Medicine
DX: R22.31 Localized swelling, mass and lump, right upper limb (principal)
CPT/HCPCS: 93971

== ENCOUNTER → 2021-05-16 08:16 | Outpatient (CLI) | payer MEDICARE, OTHER, SELFPAY ==
--- NOTE | 2021-05-16 08:23 | VDUE_ITS ---
Reason For Study: Swelling Right Proximal Right jugular vein is spontaneous, widely patent, phasic, with no intraluminal echogenicity noted. Right subclavian vein is spontaneous, widely patent, phasic, with no intraluminal echogenicity noted. Right Lower Arm Right radial vein is compressible. Right ulnar vein is compressible. Right Arm Right axillary vein is spontaneous, patent, phasic, competent, compressible and demonstrates augmentation. Right brachial vein is compressible. Right cephalic vein is compressible. Right basilic vein is compressible. Patient Safety Prelim to TCU. VL/Venous Duplex US, Unilateral Interpretation Summary No evidence for acute deep venous thrombosis[right] upper extremity with patent and compressible cephalic and basilic veins. Ordering Physician: Sukumar Sauer Performed By: Mercedes Crawford RVT ?
== END ==
PROVIDERS: Referring Provider Family Medicine Geriatric Medicine; Visit Provider Family Medicine Geriatric Medicine
DX: M79.89 Other specified soft tissue disorders (principal)
CPT/HCPCS: 93971

== ENCOUNTER → 2021-05-19 18:34 | Outpatient (CLI) | payer MEDICARE, OTHER, SELFPAY ==
--- NOTE | 2021-05-19 18:40 | CT_ITS ---
STUDY: CT BRAIN WITHOUT CONTRAST REASON FOR EXAM: Male, 80 years old. Fall trauma RADIATION DOSAGE (If Supplied By Facility): CTDIvol = ( 44.99 ) mGy, DLP = ( 832.67 ) mGycm TECHNIQUE: Transaxial CT imaging of the brain was performed without administration of intravenous contrast material. Individualized dose optimization techniques were used for this CT. COMPARISON: 21 March 2021 FINDINGS: There is remote large left MCA infarct involving frontal, temporal and parietal lobes. There is no mass effect, acute intracranial hemorrhage, extra parenchymal fluid collections, hydrocephalus or herniation. The skull is intact. Appearance is stable since prior. CT/Brain/Head without Contrast IMPRESSION: 1. No acute intracranial injury. 2. Stable since prior. 3. Remote left MCA infarct. Electronically Signed: Les Marquez MD at 19:41 EDT Tel , Service support ,
== END ==
LOC: RAD 18:37 → CT 18:40
PROVIDERS: Visit Provider Family Medicine Geriatric Medicine
DX: Z04.3 Encounter for examination and observation following other accident (principal); Z86.73 Personal history of transient ischemic attack (TIA), and cerebral infarction without residual deficits; W19.XXXA Unspecified fall, initial encounter
CPT/HCPCS: 70450